=== PATIENT | female | born 1970 | race Caucasian/White ===

== ENCOUNTER 2024-10-19 15:32 | Inpatient (IN) | payer MEDICAID, SELFPAY ==
[2024-10-19 15:34] VITALS: BP 165/79; PULSE 121; RESP 26; TEMP 38.4; O2SAT 94
--- NOTE | 2024-10-19 15:40 | EKG12_ITS ---
Test Reason : GENERAL Blood Pressure : */* mmHG Vent. Rate : 107 BPM Atrial Rate : 107 BPM P-R Int : 140 ms QRS Dur : 80 ms QT Int : 330 ms P-R-T Axes : 41 41 39 degrees QTcB Int : 440 ms Sinus tachycardia Otherwise normal ECG Confirmed by Mika Bond ([id number]), editor greeting card LOPEZ NIEVES ([id number]) on 10/21/2024 1:10:17 PM Referred By: Confirmed By: Mika Bond
--- NOTE | 2024-10-19 15:40 | RAD_ITS ---
PROCEDURE: CHEST PA AND LATERAL 10/19/2024 REASON FOR EXAM: FEVER TECHNIQUE: CHEST PA AND LATERAL FINDINGS: Hardware: None Heart: Normal size Mediastinum: Right perihilar adenopathy/infiltrate Lungs: Right lower lobe airspace disease Bones: Negative RAD/Chest PA and Lateral IMPRESSION: Right base pneumonia [facility]
--- NOTE | 2024-10-19 15:47 | CT_ITS ---
PROCEDURE: ABDOMEN/PELVIS W IV CONT ONLY 10/19/2024 REASON FOR EXAM: ABD PAIN AND FEVER TECHNIQUE: ABDOMEN/PELVIS W IV CONT ONLY Coronal and Sagittal reconstruction series were provided. CONTRAST: Isovue 370 VOLUME: 98 mL One or more dose reduction techniques were used (e.g., Automated exposure control, adjustment of the mA and/or kV according to patient size, use of iterative reconstruction technique. RADIATION DOSE SUMMARY: CTDlvol: 21.5 mGy DLP: 1237 mGycm COMPARISON: None FINDINGS: Lung bases: There is patchy consolidation and ground-glass opacity in the right lower lobe. Liver: Numerous hypodense lesions throughout the liver, the majority of which are subcentimeter which limits evaluation. A lesion measuring 2.3 cm in the right hepatic lobe is simple fluid density, likely a simple cyst.. Gallbladder: Surgically absent. Spleen: Nodular structure posterior to the stomach measuring 3.6 cm is favored to represent the spleen. Pancreas: The distal pancreatic body and tail appear surgically absent, with a surgical clip near the margin. Pancreatic head is unremarkable. Adrenals: Unremarkable Kidneys: No hydronephrosis or stone. Subcentimeter hypodensities in both kidneys are too small to characterize. Bladder: Collapsed, limiting evaluation Reproductive Organs: Prior hysterectomy. Adnexal regions are unremarkable. Bowel: No obstruction or inflammation. Appendix not well-visualized and may be surgically absent. Lymph nodes: No significant lymphadenopathy. Vasculature: Unremarkable Bones: Degenerative changes of the spine. Soft tissues: Postoperative changes of the midline abdominal wall in keeping with history of prior hernia repairs. CT/Abdomen/Pelvis W IV Cont ONLY IMPRESSION: 1. Patchy consolidation and ground-glass opacity in the right lower lobe, like ly representing infection. Recommend repeat imaging in 8-12 weeks to ensure resolution. 2. No acute intra-abdominal abnormality. 3. 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 Correlate with surgical history. If patient had prior splenectomy, recommend fu rther imaging of the structure posterior to the stomach. 4. Numerous splenic hypodensities, majority of which are subcentimeter in size . Consider dedicated liver MRI or CT if patient has risk factors for hepatic malignancy. Reading Location: [facility]
--- NOTE | 2024-10-19 15:48 | EX.ED.DYSGE1 ---
HPI History of Present Illness Chief Complaint: Fever Informant: patient Onset/Context/Timing Onset: Days Context: Gradual Onset Timing: Continuous Current Severity: Moderate Maximum Severity: Moderate Narrative Narrative: 54-year-old female history of diabetes, prior history of sepsis with multiple prior abdominal surgeries including hysterectomy, , cholecystectomy hernia repairs. They state since Sunday evening she has had fever and chills. Nausea and vomiting. No diarrhea. No dysuria. States has chronic abdominal pain but she is having some on her right flank which is not normal. Had a similar episode when she felt like this when she was septic and said it was a infection in her bloodstream. Denies any rashes. No significant cough or shortness of breath. 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 Home Medications Medication Instructions Recorded Last Taken Type acetaminophen 500 mg capsule 1,000 mg PO Q4H PRN fever or pain 10/19/24 10/19/24 History bupropion HCl 150 mg 24 hr tablet, 150 mg PO DAILY 10/19/24 10/19/24 History extended release escitalopram oxalate 20 mg tablet 20 mg PO DAILY 10/19/24 10/18/24 History ferrous sulfate 325 mg (65 mg 325 mg PO BID 10/19/24 10/19/24 History iron) tablet,delayed release hydroxychloroquine 200 mg tablet 200 mg PO BID 10/19/24 10/19/24 History hydroxyzine HCl 25 mg tablet 25 mg PO BID PRN anxiety 10/19/24 10/19/24 History lisinopril 40 mg tablet 40 mg PO DAILY 10/19/24 10/18/24 History metformin 500 mg tablet 1,000 mg PO BID 10/19/24 10/19/24 History metoprolol succinate 50 mg 50 mg PO DAILY 10/19/24 10/19/24 History tablet,extended release 24 hr omeprazole 40 mg capsule,delayed 40 mg PO DAILY 10/19/24 10/19/24 History release rosuvastatin 5 mg tablet 5 mg PO QHS 10/19/24 10/18/24 History Allergy/AdvReac Type Severity Reaction Status Date / Time hydromorphone (From Dilaudid) Allergy Intermediate Rash Verified 10/19/24 15:36 Social History Smoking Status: Never smoker ROS ROS ED ROS Narrative Fever and chills. Nausea vomiting. Abdominal pain. Constitutional Constitutional ED: Denies chills or fever(s) Eyes Eyes: Denies blurry vision ENT ENT ED: Denies ear pain Cardiovascular Cardiovascular: Denies chest pain Respiratory/Chest Respiratory/Chest: Denies cough or dyspnea Gastrointestinal Gastrointestinal: Reports abdominal pain, nausea and vomiting Genitourinary Genitourinary ED: Denies dysuria or hematuria Musculoskeletal Musculoskeletal: Denies arthralgias or back pain Integumentary Denies abscess or Abrasions Neurologic Neurologic: Denies headache(s) Psychiatric Psychiatric: Denies anxiety or depression Endocrine Endocrinology: Denies cold intolerance Hematologic/Lymphatic Hematologic/Lymphatic: Reports none Allergic/Immunologic Allergic/Immunologic ED: Denies mouth swelling, tongue swelling or urticaria EXAM Physical Exam Narrative Exam Narrative: Middle-aged female sitting upright in bed. Vital signs are stable she is febrile 101.2. Tachycardic 121. Pulse ox 94% on room air no hypoxia. She is in no acute distress currently. H EENT exam pupils round react to light. Mytrex membranes. Neck nontender no JVD. No lymphadenopathy. No meningismus. Lungs clear to auscultation bilaterally. Heart tachycardic 120 no murmur. Chest wall ribs nontender. Abdomen soft nondistended normal bowel sounds without peritoneal signs. Mild tenderness right flank region. Not specific to the right upper quadrant or the right lower quadrant. Soft. No peritoneal signs. No obstruction. Back nontender. Moving all 4 extremities. Nontender. No edema. Normal strength. Normal range of motion. No hot or swollen joints. Skin no rashes. Neurologically she is awake and alert. Answering questions and following commands. Const Vital Signs: 10/19/24 15:34 10/19/24 15:56 10/19/24 15:56 Temperature 101.2 F H 101.2 F H Temperature Source Oral Oral Pulse Rate 121 H 111 H Respiratory Rate 26 H 26 H Respiratory Effort Respiratory Pattern Blood Pressure 165/79 H 165/79 H Blood Pressure Mean 107 107 Pulse Ox 94 94 Oxygen Delivery Method Room Air Room Air 10/19/24 15:57 10/19/24 16:46 Temperature 101.7 F H Temperature Source Oral Pulse Rate 101 H Respiratory Rate 18 Respiratory Effort Labored Respiratory Pattern Tachypnea Blood Pressure 133/88 H Blood Pressure Mean 103 Pulse Ox 92 Oxygen Delivery Method Room Air Positive well nourished and well developed; Negative for cachectic, contractures or unkempt General Appearance ED: well developed and NAD; Negative for unkempt, cachectic, contractures, cyanotic, diaphoretic or pallor Nutritional Appearance: Negative for cachectic HEENT Reports moist mucous membranes Eyes PERRL and EOMs intact bilaterally Neck no lymphadenopathy, supple and no JVD Chest Wall inspection of chest normal and palpation of chest normal Resp normal respiratory effort and clear to auscultation bilaterally Cardio regular rhythm, S1 normal heart sound, S2 normal heart sound and no murmurs; Negative for regular rate Rate: tachycardic GI normal to inspection, nondistended, normoactive bowel sounds, non-distended and no masses; Negative for non-tender Inspection: Negative for abdominal distention Auscultation: normoactive bowel sounds Palpation: soft and tender; Negative for guarding, splenomegaly, mass or rebound tenderness present Back/Spine no CVA tenderness General Back: Negative for CVA tenderness Cervical Spine: Negative for cervical spine tenderness Thoracic Spine / Upper Back: Negative for thoracic spinal tenderness Extremity normal to inspection General Extremety ED: Negative for edema or tenderness General Extremity: Negative for edema Neuro oriented x3 and CN's II-XII intact bilaterally Sensorium / Orientation: alert; Negative for orientation impaired, lethargic or stuporous Motor Exam: strength 5/5 throughout Psych mental status grossly normal Appearance: Negative for unkempt Mood & Affect: Negative for depressed, anxious or tearful Skin no rashes or lesions noted and no wounds General Skin Exam: Negative for jaundice or pallor Lesions: No lesion noted Rashes: No rashes noted Trauma: Negative for abrasion Wounds: Negative for wounds noted MDM MDM MDM Narrative Medical decision making narrative: 54-year-old female fever with nausea vomiting abdominal pain and diffuse body pain. She will be placed on the sepsis workup. Liter of normal saline. Tylenol for her fever. We are looking for a source of infection. Most likely will need to be admitted. Awaiting labs and x-ray results. History & Record Review Discussion w/independent historian: Patient Additional record(s) reviewed:: No prior records Lab Data Attestation: I reviewed the patient's lab results. Lab results narrative: CBC shows a white count 27,800. H&H 12.6 and 36. Platelets 430. Electrolytes show a sodium 132. Gap of 15. BUN of 12 creatinine 1.57. Glucose 171. Liver enzymes unremarkable. AST of 40. Alk phos 150. PT, PTT and INR are normal. Lactic acid 2.0 Urinalysis shows no acute abnormality. Chest x-ray shows a right lower lobe pneumonia. Labs: Laboratory Results - last 24 hr 10/19/24 10/19/24 15:46 16:18 WBC 27.8 H RBC 4.24 Hgb 12.6 Hct 36.9 L MCV 87.0 MCH 29.7 MCHC 34.1 RDW Std Deviation 43.6 RDW Coeff of [place] 13.8 Plt Count 430 MPV 10.0 Immature Gran % (Auto) 1.400 H Neut % (Auto) 84.7 H Lymph % (Auto) 6.3 L [place] % (Auto) 7.0 Eos % (Auto) 0.0 Baso % (Auto) 0.6 Absolute Neuts (auto) 23.6 H Absolute Lymphs (auto) 1.76 Nucleated RBC % 0.1 PT 14.1 INR 1.1 APTT 31.3 Sodium 132 L Potassium 5.1 Chloride 98 Carbon Dioxide 19.8 L Anion Gap 15 BUN 12 Creatinine 1.57 H Estim Creat Clear Calc 46.07 L Est GFR (MDRD) Non-Af 39 L BUN/Creatinine Ratio 7.7 L Glucose 171 H Lactic Acid 2.0 Calcium 9.3 Total Bilirubin 0.21 AST 40 H ALT 13 Alkaline Phosphatase 150 H Total Protein 7.3 Albumin 3.5 Globulin 3.8 Albumin/Globulin Ratio 0.9 Urine Color Yellow Urine Clarity Sl. Cloudy Urine pH 5.0 Ur Specific [place] 1.020 Urine Protein 100 H Urine Glucose (UA) Normal Urine Ketones Negative Urine Occult Blood 10 H Urine Nitrite Negative Urine Bilirubin Negative Urine Urobilinogen Normal Ur Leukocyte Esterase Negative Radiography Chest X-Ray - ED: 2 View, Read by ED Physician, Heart, Mediastinum, Bony Structures, Chronic Changes and Right Infiltrate Diagnostic Testing: Chest x-ray, 2 views, AP and lateral, interpreted by myself shows a right lower lobe pneumonia. Rhythm Strip Rhythm Strip: Sinus Tach Rate: 107 Ectopy: None EKG Initial EKG: Attestation: I personally reviewed and interpreted this EKG as follows: Interpretation: Sinus Rhythm and No Acute Injury Pattern Comments: Sinus tachycardia rate of 107 no acute signs of [place] or ischemia. Discharge Plan Dx/Rx/DC Orders Clinical Impression: Fever, Abdominal pain, Right lower lobe pneumonia, Leukocytosis Disposition Disposition: Acute Care Hospital [facility]
[2024-10-19] MEDS: 0.9% Normal Saline (1000mL) 1,000 ML 999 ML IV ×2 (15:49→17:28)
[2024-10-19 15:56] VITALS: BP 165/79; PULSE 111; RESP 26; TEMP 38.4; O2SAT 94; BMI 34.8
--- OUTSIDE RECORDS SUMMARY | 2024-10-19 16:03 | XMS RPT_ITS | CCD ---
Author Organization [facility] CliniSyil Care Team Providers Care Ticket Seller Name Role Phone Giselle Boykin E Primary Care Provider Maura Lange Unavailable Unavailable Boykin, Giselle Unavailable Unavailable Olivia Schmitz Unavailable Unavailable Fenohr, Emili Unavailable Unavailable Boykin, Giselle E Unavailable Unavailable Fenohr, Emili M Unavailable Unavailable Boykin, Giselle E Primary Care Provider Alejandro, Giselle E Unavailable [phone] Unavailable Unavailable Unavailable Primary Care Provider Unavailabl e Unavailable Unavailable Alejandro, Dr. Giselle Hendricks Attending U navailable Boykin, Dr. Giselle Hendricks Referring U navailable Boykin, Dr. Giselle Hendricks Primary Care U navailable Boykin, Dr. Giselle Hendricks Attending U navailable Boykin, Dr. Giselle Hendricks Referring U navailable Boykin, Dr. Giselle Hendricks Primary Care U navailable Boykin, Dr. Giselle Hendricks Attending U navailable Boykin, Dr. Giselle Hendricks Referring U navailable Boykin, Dr. Giselle Hendricks Primary Care U navailable Dr. Maura Lange Attending Unavailable Boykin, Dr. Giselle Hendricks Referring U navailable Boykin, Dr. Giselle Hendricks Primary Care U navailable Boykin, Dr. Giselle Hendricks Referring U navailable Boykin, Dr. Giselle Hendricks Primary Care U navailable Boykin, Dr. Giselle Hendricks Attending U navailable Boykin, Dr. Giselle Hendricks Attending U navailable Boykin, Dr. Giselle Hendricks Referring U navailable Boykin, Dr. Giselle Hendricks Primary Care U navailable Boykin, Dr. Giselle Hendricks Referring U navailable Boykin, Dr. Giselle Hendricks Primary Care U navailable JESSICA, MIGUELINA UNDERWOOD Attending Unavailable Boykin, Dr. Giselle Hendricks Referring U navailable Boykin, Dr. Giselle Hendricks Primary Care U navailable Nazario, Dr. Lorenzo Attending Unavailable Giselle Boykin MD Primary Care Provider Giselle Boykin MD Unavailable Giselle Boykin MD Primary Care Provider Unav ailable Giselle Boykin MD Unavailable Unavailabl e Giselle Boykin MD Unavailable Giselle Boykin MD Primary Care Provider Maura Lange MD Unavailable GISELLE BOYKIN MD Primary Care Physician HARSH CEDILLO Attending Unavailable GISELLE BOYKIN MD Primary Care Unavailable TOMAS GOLDEN MD Attending Unavailable GISELLE BOYKIN MD Primary Care Unavailable VICKY HERNANDEZ MD Attending U navailable ROBLES PATRICK, JACKIE Consulting Unavailable GISELLE BOYKIN MD Primary Care Unavailable MAXINE BLAIR MD Admitting Unavailable Mo Johnson Attending Unavailable Giselle Boykin MD Unavailable Giselle Boykin MD Primary Care Provider STEPHANIE WILDER Attending Unavailable SELF Referring Unavailable GISELLE BOYKIN Primary Care Unavailable STEPHANIE WILDER Referring Unavailable GISELLE BOYKIN Primary Care Unavailable MAURA LANGE MD Attending Unavailable GISELLE BOYKIN MD Primary Care Unavailable Giselle Boykin MD Unavailable Maura Lange MD Unavailable BOYKIN, GISELLE E Attending Unavailable BOYKIN, GISELLE E Primary Care Unavailable MAURA LANGE Attending Unavailable BOYKIN, GISELLE E Primary Care Unavailable YASMINE LOPEZ Attending Unavailable BOYKIN, GISELLE E Primary Care Unavailable BOYKIN, GISELLE E Attending Unavailable BOYKIN, GSIELLE E Primary Care Unavailable MAURA LANGE Attending Unavailable BOYKIN, GISELLE E Primary Care Unavailable BOYKIN, GISELLE E Attending Unavailable BOYKIN, GISELLE E Attending Unavailable BOYKIN, GISELLE E Primary Care Unavailable BOYKIN, GISELLE E Primary Care Unavailable BOYKIN, GISELLE E Referring Unavailable BOYKIN, GISELLE E Primary Care Unavailable Allergies Allergy Classification Reported Allergen(s) Allergy Type Date of Onset Reaction(s) Facility Bacitracin (7 sources) Bacitracin; Translations: [bacitracin] Drug Allergy Other [place] [address] Work Phone: Opioid Agonists (8 sources) HYDROmorphone; Translations: [Dilaudid TABS] Drug Allergy Vomiting, Hives [facility] Sulfamethoxazole / Trimethoprim (7 sources) Sulfamethoxazole / Trimethoprim; Translations: [Bactrim] Drug Allergy Other [place] [address] Work Phone: Unclassified (2 sources) Artificial sweetners Food allergy Migraine (disorder) [facility] (10 sources) HYDROmorphone; Translations: [HYDROMORPHONE HCL] Drug Allergy 10-21-19 16 Nausea And Vomiting, Rash, Vomiting [place], [place] (20 sources) Sulfamethoxazole / Trimethoprim; Translations: [Bactrim] Drug Allergy 05-20-19 17 Other (See Comments), Other: See Comments, Other [place], [place] (20 sources) Bacitracin; Translations: [bacitracin] Drug Allergy 12-08-19 23 Other, Other: See Comments [facility] (20 sources) HYDROmorphone; Translations: [Dilaudid TABS] Drug Allergy 12-08-19 23 [facility], H[facility], [facility] Work Phone: (5 sources) Sulfamethoxazole / Trimethoprim Drug Allergy Other [facility] DO Work Phone: (16 sources) Morphinan opioid; Translations: [OPIOIDS - MORPHINE ANALOGUES] Propensity to adverse reactions 03-30-20 04 Rash, Vomiting, Nausea And Vomiting, Nausea/vomitin g [facility] (14 sources) liraglutide; Translations: [LIRAGLUTIDE] Drug Allergy 03-20-20 23 [facility] Work Phone: (2 sources) HYDROmorphone; Translations: [HYDROMORPHONE] Drug Allergy 12-08-19 [facility] 3 Repository Medications Current Medications Medication Drug Class(es) Dates Sig (Normalized) Sig (Original) acetaminophen 325 mg oral tablet (3 sources) Start: 12-03-2019 acetaminophen (TYLENOL) tablet 650 mg Start: 12-03-2019 End: 12-03-2019 acetaminophen (TYLENOL) tabl et 1,000 mg Start: 12-24-2018 End: 12-24-2018 acetaminophen (TYLENOL) tabl et 1,000 mg acetaminophen 325 mg / HYDROcodone bitartrate 7.5 mg oral tablet (1 source) Opioid Agonist Start: 12-24-2018 End: 12-30-2018 take 1 tablet by mouth every six hours as needed for pain HYDROcodone-acetaminophen (NORCO) 7.5-325 MG per tablet Indications: Recurrent incisional hernia Take 1 tablet by mouth every 6 hours as needed for Pain for up to 6 days. 24 tablet 0 12/24/2018 12/30/2018 Active acetaminophen 325 mg / oxyCODONE hydrochloride 5 mg oral tablet (3 sources) Opioid Agonist Start: 11-14-2023 End: 11-16-2023 take 1 tablet by mouth every four hours as needed for pain Percocet 5 mg-325 mg oral tablet Dose = 1 tab(s), Oral, q4h, PRN for pain, X 2 day(s), # 12 tab(s), 0 Refill(s), Abdominal pain, 89.4 Start Date: 11/14/23 Stop Date: 11/16/23 Status: Ordered Start: 12-04-2019 End: 12-11-2019 take 1 tablet by mouth every six hours as needed for pain oxyCODONE-acetaminophen (PERCOCET) 5-325 MG per tablet Indications: Abnormal uterine bleeding Take 1 tablet by mouth every 6 hours as needed for Pain for up to 7 days. 28 tablet 0 12/04/2019 12/11/2019 Active Start: 12-03-2019 oxyCODONE-acet aminophen (PERCOCET) 5-325 MG per tablet 1 tablet [id number] 200 actuat albuterol 0.09 mg/actuat metered dose inhaler (20 sources) beta2-Adrenergic Agonist Start: 04-29-2024 take 2 puff(s) by inhalation every four hours for wheezing albuterol 90 mcg/actuation inhaler Inhale 2 puffs every 4 hours if needed for shortness of breath or wheezing. 04/29/2024 Active Start: 07-20-2016 End: 05-03-2023 take 2 puff(s) by inhalation every four hours albuterol (Ventolin HFA) 90 mcg/actuation inhaler Inhale 2 puffs every 4 hours if needed. 0 07/20/2016 05/03/2023 Discontinued (Med List Cleanup) Start: 07-20-2016 take 2 puff(s) by in halation every four to six hours as needed Ventolin HFA 108 (90 Base) MCG/ACT Inhalation Aerosol Solution INHALE 2 PUFFS EVERY 4-6 HOURS NEEDED. Quantity: 1 Refills: 2 Ordered: 11-Feb-2018 Giselle Boykin MD Start : 20-Jul-2016 Active Start: 07-20-2016 take 2 puff(s) by in halation every four to six hours as needed Ventolin HFA 108 (90 Base) MCG/ACT Inhalation Aerosol Solution INHALE 2 PUFFS EVERY 4-6 HOURS NEEDED. Quantity: 1 Refills: 2 Giselle Boykin MD Start : 20-Jul-2016 Active 18 GM Inhaler ALPRAZolam 0.25 mg disintegrating oral tablet (4 sources) Benzodiazepine Start: 12-24-2018 ALPRAZolam (NI RAVAM) dissolvable tablet 0.25 mg take 1 tablet by kayley th every eight hours as needed ALPRAZolam (XANAX) 0.5 mg tablet Take 0. 5 mg by mouth three times daily as needed. Active Comment on above: Take 0.5 mg by mouth three times daily as needed. amoxicillin 875 mg / clavulanate 125 mg oral tablet (4 sources) Penicillin-class Antibacterial Start: 4 End: 4 take 1 tablet by mouth twice daily amoxicillin-pot clavulanate (Augmentin) 875-125 mg tablet Indications: Acute otitis media, unspecified otitis media type Take 1 tablet by mouth 2 times a day for 10 days. 20 tablet 11/27/2023 12/07/2023 Active Start: 04-18-2023 End: 04-29-2023 take 1 tablet by mouth twice daily amoxicillin-pot clavulanate (Augmentin) 875-125 mg tablet Indications: Dental infection Take 1 tablet (875 mg) by mouth 2 times a day for 7 days. 14 tablet 0 04/18/2023 04/29/2023 Discontinued (Therapy completed) Start: 08-30-2022 take 1 tablet by kayley twice daily Amoxicillin-Pot Clavulanate 875-125 MG Oral Tablet Take 1 tablet twice daily Quantity: 20 Refills: 0 Ordered: 30-Aug-2022 Jessica LONGORIA-Yasmine MCINTYRE Start : 30-Aug-2022 Active ascorbic acid 500 mg oral tablet (6 sources) Vitamin C take 1 tablet by mouth twice daily vitamin C (ASCORBIC ACID) 500 MG tablet Take 500 mg by mouth 2 times daily 0 Active benzonatate 100 mg oral capsule (3 sources) Non-narcotic Antitussive Start: 5 take 1 capsule by mouth three times daily as needed benzonatate (TESSALON PERLE) 100 mg capsule Indications: Bronchitis Take 1 capsule by mouth three times a day as needed. 30 capsule 04/29/2024 Active Start: 01-02-2022 End: 04-29-2024 take 2 capsules by mouth every eight hours as needed benzonatate (TESSALON PERLES) 100 mg capsule Take 2 capsules by mouth every 8 hours as needed. 60 capsule 01/02/2022 04/29/2024 Discontinued 24 hr buPROPion hydrochloride 150 mg extended release oral tablet (7 sources) Aminoketone Start: 07-08-2024 End: 07-08-2025 take 1 tablet by mouth once daily in the morning buPROPion XL (Wellbutrin XL) 150 mg 24 hr tablet Indications: Situational depression Take 1 tablet (150 mg) by mouth once daily in the morning. Do not crush, chew, or split. 30 tablet 11 07/08/2024 07/08/2025 Active Start: 03-20-2024 End: 06-18-2024 take 1 tablet by mouth once daily in the morning buPROPion XL (Wellbutrin XL) 150 mg 24 hr tablet Indications: Situational depression Take 1 tablet (150 mg) by mouth once daily in the morning. Do not crush, chew, or split. 30 tablet 2 03/20/2024 06/18/2024 Active busPIRone hydrochloride 10 m g oral tablet (20 sources) Start: 11-15-2020 End: 05-03-2023 busPIRone (Buspar) 10 mg tab let Take by mouth twice a day. 0 11/15/2020 05/03/2023 Discontinued (Med List Cleanup) calcium chloride 0.0014 meq/ ml / potassium chloride 0.004 meq/ml / sodium chloride 0.103 meq/ml / sodium lactate 0.028 meq/ml injectable solution (2 sources) Start: 12-03-2019 lactated ringe rs infusion Start: 12-24-2018 lactated ringe rs infusion cetirizine hydrochloride 10 mg oral tablet (2 sources) Histamine-1 Receptor Antagonist Start: 04-29-2024 End: 05-29-2024 take 1 tablet by mouth once daily cetirizine (ZYRTEC) 10 mg tablet Indications: Bacterial sinusitis Take 1 tablet by mouth once daily. 30 tablet 04/29/2024 05/29/2024 Active diclofenac sodium 75 mg delayed release oral tablet (3 sources) Nonsteroidal Anti-inflammatory Drug take 1 tablet by mouth twice daily diclofenac, EC, (VOLTAREN) 75 mg EC tablet Take 75 mg by mouth twice daily. Active Comment on above: Take 75 mg by mouth twice daily. 1 ml diphenhydrAMINE hydrochloride 50 mg/ml cartridge (1 source) Histamine-1 Receptor Antagonist Start: 12-24-2018 End: 12-24-2018 diphenhydrAMINE (BENADRYL) injection 12.5 mg doxycycline hyclate 100 mg oral tablet (3 sources) Tetracycline-class Drug Start: 04-29-2024 End: 05-09-2024 take 1 tablet by mouth twice daily doxycycline (VIBRA-TABS) 100 mg tablet Indications: Bacterial sinusitis , Bronchitis Take 1 tablet by mouth two times a day for 10 days. 20 tablet 04/29/2024 05/09/2024 Active Start: 12-24-2018 take 1 tablet by kayley th twice daily doxycycline hyclate (VIBRA-TABS) 100 MG tablet Take 1 tablet by mouth 2 times daily 14 tablet 1 12/24/2018 Active escitalopram 20 mg oral tablet (20 sources) Serotonin Reuptake Inhibitor Start: 04-23-2017 End: 04-08-2025 take 1 tablet by mouth once daily escitalopram (Lexapro) 20 mg tablet Indications: Situational depression Take 1 tablet (20 mg) by mouth once daily. 90 tablet 3 04/08/2024 04/08/2025 Active Start: 04-23-2017 take 8 tablets by mo [facility] once daily Escitalopram Oxalate 20 MG Oral Tablet Once daily Quantity: 90 Refills: 3 Ordered: 07-Nov-2021 Giselle Boykin MD Start : 23-Apr-2017 Active Start: 04-23-2017 take 7 tablets by mo [facility] once daily Escitalopram Oxalate 20 MG Oral Tablet Once daily Quantity: 90 Refills: 3 Ordered: 07-Aug-2019 Giselle Boykin MD Start : 23-Apr-2017 Active Comment on above: Take 20 mg by mouth once daily. FeroSul 325 mg (65 mg elemental iron) oral tablet (2 sources) Start: 09-30-2023 FeroSul 325 mg (65 mg elemental iron) oral tablet Dose : 325 mg = 1 tab(s), Oral, BID, 0 Refill(s) Start Date: 09/30/23 Status: Ordered ferrous sulfate 325 mg oral tablet (20 sources) Start: 05-30-2024 End: 05-30-2025 take 1 tablet by mouth twice daily ferrous sulfate tablet Indications: Anemia, unspecified type Take 1 tablet (325 mg) by mouth 2 times daily (morning and late afternoon). 180 tablet 3 05/30/2024 05/30/2025 Active Start: 03-16-2024 take 1 tablet by kayley twice daily at mealtime FEROSUL 325 mg (65 mg iron) tablet Take 1 tablet by mouth two times a day with meals. 03/16/2024 Active Start: 03-20-2023 End: 03-20-2024 take 1 tablet by mouth twice daily at mealtime ferrous sulfate, 325 mg ferrous sulfate, tablet Indications: Anemia, unspecified type Take 1 tablet by mouth 2 times a day with meals. 180 tablet 3 03/20/2023 03/20/2024 Active fluticasone propionate 0.05 mg/actuat metered dose nasal spray (2 sources) Corticosteroid Start: 04-29-2024 take 1 spray(s) nasal route twice daily fluticasone (FLONASE ALLERGY RELIEF) 50 mcg/actuation nasal spray Indications: Bacterial sinusitis Use 1 [place] in each nostril two times a day. 1 Each 04/29/2024 Active 1 ml hydrALAZINE hydrochloride 20 mg/ml injection (1 source) Arteriolar Vasodilator Start: 12-24-2018 hydrALAZINE (APRESOLINE) injection 5 mg hydroCHLOROthiazide 25 mg oral tablet (5 sources) Thiazide Diuretic Start: 03-20-2024 End: 03-20-2025 take 1 tablet by mouth once daily hydroCHLOROthiazide (HYDRODiuril) 25 mg tablet Indications: Benign essential hypertension Take 1 tablet (25 mg) by mouth once daily. 90 tablet 3 03/20/2024 05/07/2024 Discontinued (Med List Cleanup) hydroxychloroquine sulfate 200 mg oral tablet (20 sources) Antimalarial, Antirheumatic Agent Start: 07-08-2024 End: 07-08-2025 take 1 tablet by mouth twice daily hydroxychloroquine (Plaquenil) 200 mg tablet Indications: Systemic lupus erythematosus, unspecified SLE type, unspecified organ involvement status (Multi) Take 1 tablet (200 mg) by mouth 2 times a day. 180 tablet 3 07/08/2024 07/08/2025 Active Start: 09-16-2012 End: 05-31-2024 take 1 tablet by mouth twice daily hydroxychloroquine (Plaquenil) 200 mg tablet Indications: Systemic lupus erythematosus, unspecified SLE type, unspecified organ involvement status (Multi) Take 1 tablet (200 mg) by mouth 2 times a day. 180 tablet 3 06/01/2023 05/31/2024 Active take 1 tablet by kayley th once daily hydroxychloroquine (PLAQUENIL) 200 MG tablet Take 200 mg by mouth daily 0 Active Comment on above: Take 200 mg by mouth twice daily. hydrOXYzine hydrochloride 25 mg oral tablet (20 sources) Antihistamine Start: 07-09-19 take 1 tablet by mouth twice daily as needed for anxiety hydrOXYzine HCL (Atarax) 25 mg tablet Indications: Situational anxiety Take 1 tablet (25 mg) by mouth 2 times a day as needed for anxiety. 30 tablet 3 07/08/2024 Active Start: 08-19-2018 take 1 tablet by kayley th twice daily as needed for anxiety hydrOXYzine HCL (Atarax) 25 mg tablet Indications: Situational anxiety Take 1 tablet by mouth twice daily as needed for anxiety 30 tablet 3 09/15/2023 Active Comment on above: Take 25 mg by mouth twice daily as needed. Iron (6 sources) take 325 mg by mouth twice daily IRON PO Take 325 mg by mouth 2 times daily 0 Suspended take 325 mg by mouth twice daily IRON PO Take 325 mg by mouth 2 times daily 0 Active 4 ml labetalol hydrochloride 5 mg/ml cartridge (1 source) beta-Adrenergic Maikel Start: 12-24-2018 labetalol (NORMODYNE;TRANDATE) injection 5 mg lancing device (TRUEdraw Lancing Device) misc (5 sources) Start: 12-05-2023 lancing device (TRUEdraw Lancing Device) misc Indications: Type 2 diabetes mellitus with hyperglycemia, without long-term current use of insulin Use to check fasting glucose once daily. 100 each 3 12/05/2023 Active levonorgestrel 0.027913 mg/hr intrauterine system (1 source) Progestin, Progestin-containin g Intrauterine Device Start: 01-17-2019 Levonorgestrel (KYLEENA) IUD 19.5 mg 1 each 10 ml lidocaine hydrochloride 10 mg/ml injection (1 source) Antiarrhythmic, Amide Local Anesthetic Start: 12-24-2018 End: 12-24-2018 lidocaine PF 1 % injection 1 mL lisinopril 40 mg oral tablet (20 sources) Angiotensin Converting Enzyme Inhibitor Start: 08-29-2023 End: 08-28-2024 take 1 tablet by mouth once daily lisinopril 40 mg tablet Indications: Benign essential hypertension Take 1 tablet (40 mg) by mouth once daily. 90 tablet 3 08/29/2023 08/28/2024 Active Start: 10-21-2014 take 1 tablet by kayley th once daily lisinopril 20 mg tablet Take 1 tablet (20 mg) by mouth once daily. 0 10/21/2014 Active Start: 10-21-2014 take 2 tablets by [facility] once daily Lisinopril 20 MG Oral Tablet TAKE 2 TABLETS BY MOUTH ONCE DAILY Quantity: 180 Refills: 3 Ordered: 10-Oct-2022 Giselle Boykin MD Start : 21-Oct-2014 Active lisinopril (PRIN IVIL;ZESTRIL) 2.5 MG tablet Take 20 mg by mouth every morning 0 Active Comment on above: Take 20 mg by mouth once daily. 1 ml meperidine hydrochloride 50 mg/ml injection (1 source) Opioid Agonist Start: 9 meperidine (DEMEROL) injection 12.5 mg metFORMIN hydrochloride 500 mg oral tablet (20 sources) Biguanide Start: 4 End: 5 take 2 tablets by mouth twice daily metFORMIN (Glucophage) 500 mg tablet Indications: Type 2 diabetes mellitus with hyperglycemia, without long-term current use of insulin Take 2 tablets (1,000 mg) by mouth 2 times daily (morning and late afternoon). 360 tablet 3 01/28/2024 01/27/2025 Active Start: 12-14-2015 End: 05-21-2024 take 1 tablet by mouth twice daily metFORMIN (GLUCOPHAGE) 500 mg tablet Take 500 mg by mouth twice daily. 10/27/2021 Active Comment on above: Take 500 mg by mouth twice daily. morphine (PF) injection 2 mg (1 source) Start: 0 morphine (PF) injection 2 mg omeprazole 40 mg delayed release oral capsule (20 sources) Proton Pump Inhibitor Start: 5 End: 6 take 1 capsule by mouth once daily omeprazole (PriLOSEC) [address] capsule Indications: Gastroesophageal reflux disease without esophagitis Take 1 capsule (40 mg) by mouth once daily. 90 capsule 3 05/30/2024 05/30/2025 Active Start: 07-16-2017 End: 05-02-2024 take 1 capsule by mouth once daily omeprazole (PriLOSEC) [address] capsule Indications: Gastroesophageal reflux disease without esophagitis Take 1 capsule (40 mg) by mouth once daily. 30 capsule 11 05/03/2023 Active take 40 mg by mouth once daily OMEPRAZOLE PO Take 40 mg by mouth nightly 0 Active Comment on above: Take 40 mg by mouth once daily. ondansetron 4 mg oral tablet (20 sources) Serotonin-3 Receptor Antagonist Start: End: take 1 tablet by mouth every eight hours for nausea ondansetron (Zofran) 4 mg tablet Indications: Nausea and vomiting, unspecified vomiting type Take 1 tablet (4 mg) by mouth every 8 hours if needed for nausea or vomiting for up to 7 days. 30 tablet 5 05/07/2024 05/14/2024 Active Start: 05-08-2022 take 1 tablet by kayley th every six hours as needed for nausea Ondansetron HCl - 4 MG Oral Tablet TAKE 1 TABLET EVERY 6 HOURS NEEDED FOR NAUSEA Quantity: 30 Refills: 1 Ordered: 08-May-2022 Giselle Boykin MD Start : 08-May-2022 Active Start: 08-31-2021 Ondansetron HC l - 4 MG/2ML Injection Solution IM INJECTION Quantity: 0 Refills: 0 Ordered: 31-Aug-2021 Olivia Schmitz MD Start : 31-Aug-2021 Complete Start: 12-24-2018 End: 12-24-2018 ondansetron (ZOFRAN) injecti on 4 mg Start: 11-09-2015 End: 11-26-2019 take 1 tablet by mouth every four hours as needed ondansetron orally disintegrating (ZOFRAN ODT) 4 mg disintegrating tablet Take 1 tablet by mouth every 4 hours as needed for Nausea/Vomiting. 8 tablet 0 11/09/2015 Active take 1 tablet by kayley th every eight hours Ondansetron HCl - 4 MG Oral Tablet TAKE 1 TABLET Every 8 hours PRN post surgery nausea Quantity: 0 Refills: 0 Ordered: 08-Jan-2019 DO Active Comment on above: Take 1 tablet by kayley th every 4 hours as needed for Nausea/Vomiting. pantoprazole 40 mg delayed release oral tablet (1 source) Proton Pump Inhibitor Start: 12-03-2019 pantoprazole (PROTONIX) tablet 40 mg predniSONE 10 mg oral tablet (2 sources) Start: 10-29-2020 End: 11-10-2020 predniSONE 10 MG Oral Tablet 4 tabs for three days, 3 tabs for three days, 2 tabs for three days, 1 tab for three days, 1/2 tab for three days then stop. Quantity: 32 Refills: 0 Ordered: 29-Oct-2020 Maura Lange MD Start : 29-Oct-2020 End : 10-Nov-2020 Active promethazine hydrochloride 25 mg oral tablet (5 sources) Phenothiazine Start: 01-02-2022 promethazine 25 mg oral tablet Dose : 25 mg = 1 tab(s), Oral, q4h, PRN as needed for nausea/vomiting, # 15 tab(s), 0 Refill(s) Start Date: 11/14/23 Status: Ordered Start: 12-03-2019 promethazine ( PHENERGAN) tablet 12.5 mg Start: 12-24-2018 End: 12-24-2018 promethazine (PHENERGAN) inj ection 6.25 mg rosuvastatin calcium 5 mg oral tablet (20 sources) HMG-CoA Reductase Inhibitor Start: 04-08-2024 End: 04-08-2025 take 1 tablet by mouth once daily at bedtime rosuvastatin (Crestor) 5 mg tablet Indications: Mixed hyperlipidemia Take 1 tablet (5 mg) by mouth once daily at bedtime. 90 tablet 3 04/08/2024 04/08/2025 Active Start: 12-03-2019 take 5 mg by mouth once daily 5 mg, Oral, DAILY, First dose on Sun12/03/19 at 1545 Start: 09-04-2019 End: 03-11-2024 take 1 tablet by mouth once daily at bedtime rosuvastatin (CRESTOR) 5 mg tablet Take 5 mg by mouth daily at bedtime. 09/15/2021 Active Comment on above: Take 5 mg by mouth d aily at bedtime. 3 ml sodium chloride 9 mg/ml injection (6 sources) Start: 12-03-2019 sodium chloride flush 0.9 % injection 10 mL Start: 12-03-2019 0.9 % sodium c hloride infusion Start: 12-24-2018 sodium chlorid e flush 0.9 % injection 10 mL vitamin b12 1 mg oral tablet (20 sources) Vitamin B12 End: 05-03-2023 cyanocobalamin (Vitamin B-12 ) 1,000 mcg tablet Take by mouth. 0 05/03/2023 Discontinued (Med List Cleanup) Vitamin B-12 100 0 MCG Oral Tablet Quantity: 0 Refills: 0 Ordered: 14-Nov-2017 DO Active take 2000 ug by mout h once daily in the morning Cyanocobalamin (VITAMIN B 12 PO) Take 2, 000 mcg by mouth every morning 0 Active take 1000 ug by mout h once daily in the morning Cyanocobalamin (VITAMIN B 12 PO) Take 1, 000 mcg by mouth every morning 0 Suspended take 1000 ug by mout h once daily in the morning Cyanocobalamin (VITAMIN B 12 PO) Take 1, 000 mcg by mouth every morning 0 Active take 1000 ug by mouth once daily Cyanocobalamin (VITAMIN B 12 PO) Take 1,000 mcg by mouth daily 0 Active zonisamide 100 mg oral capsule (20 sources) Anti-epileptic Agent Start: 12-03-2019 take 300 mg by mouth once daily 300 mg, Oral, NIGHTLY, First dose on Sun12/03/19 at 2100 Start: 11-18-2018 End: 08-30-2022 take 3 capsules by mouth once daily at bedtime zonisamide (ZONEGRAN) 100 mg capsule Take 300 mg by mouth daily at bedtime. 12/24/2021 Active Start: 11-18-2018 End: 01-31-2023 zonisamide (Zonegran) 100 mg capsule Take by mouth. 0 11/18/2018 01/31/2023 Discontinued (Therapy completed) Start: 11-18-2018 take 1 capsule by mo uth once at bedtime, then take 2 capsules by mouth once, then take 3 capsules by mouth once daily at bedtime Zonisamide 100 MG Oral Capsule 1 po q hs x 1week then 2 po qhsx 1 week then 3 po qhs Quantity: 90 Refills: 6 Olivia Schmitz MD Start : 18-Nov-2018 Active Comment on above: Take 300 mg by mouth daily at bedtime. Completed/Discontinued Medications Medication Drug Class(es) Dates Sig (Normalized) Sig (Original) Accu-Chek Caitlyn Plus w/Device Kit (1 source) Start: 02-05-2020 Accu-Chek Caitlyn Plus w/Device Kit CHECK FASTING GLUCOSE ONCE DAILY, RECORD IN LOG BOOK. Quantity: 1 Refills: 0 Giselle Boykin MD Start : 05-Feb-2020 Active acyclovir 0.05 mg/mg topical ointment (1 source) Herpesvirus Nucleoside Analog DNA Polymerase Inhibitor, Herpes Simplex Virus Nucleoside Analog DNA Polymerase Inhibitor, Herpes Zoster Virus Nucleoside Analog DNA Polymerase Inhibitor Start: 08-07-2019 Acyclovir 5 % External Ointment APPLY TO AFFECTED AREA UP TO 4 TIMES DAILY. Quantity: 1 Refills: 2 Giselle Boykin MD Start : 07-Aug-2019 Active 30 GM Tube aprepitant 40 mg oral capsule (1 source) Substance P/Neurokinin-1 Receptor Antagonist Start: 12-24-2018 End: 12-24-2018 aprepitant (EMEND) capsule 40 mg Start: 12-24-2018 End: 12-24-2018 aprepitant (EMEND) capsule 4 0 mg bupivacaine and dexamethasone (TAP) syringe 30 mL (1 source) Start: 12-24-2018 End: 12-24-2018 bupivacaine and dexamethasone (TAP) syringe 30 mL ceFAZolin 2000 mg injection (1 source) Cephalosporin Antibacterial Start: 12-24-2018 End: 12-24-2018 ceFAZolin (ANCEF) 2 g in dextrose 4 % 100 mL IVPB (premix) ceFAZolin (ANCEF) 2 g in dextrose 5 % 100 mL IVPB (1 source) Start: 12-03-2019 End: 12-03-2019 ceFAZolin (ANCEF) 2 g in dextrose 5 % 100 mL IVPB cholecalciferol 0.05 mg oral capsule (16 sources) Vitamin D Start: 04-07-2022 take 1 capsule by mouth once daily Vitamin D 50 MCG (2000 UT) Oral Capsule TAKE 1 CAPSULE Daily Quantity: 90 Refills: 3 Ordered: 07-Apr-2022 Giselle Boykin MD Start : 07-Apr-2022 Active clobetasol propionate 0.5 mg/ml topical cream (7 sources) Corticosteroid Start: 10-10-2022 Clobetasol Propionate 0.05 % External Cream APPLY SPARINGLY TO AFFECTED AREA(S) TWICE DAILY Quantity: 1 Refills: 0 Ordered: 10-Oct-2022 Giselle Boykin MD Start : 10-Oct-2022 Active dextromethorphan hydrobromide 3 mg/ml / promethazine hydrochloride 1.25 mg/ml oral solution (2 sources) Phenothiazine, Uncompetitive O-rvygvb-B-aspartat e Receptor Antagonist, Sigma-1 Agonist Start: 08-30-2022 take 5 mL by mouth every four to six hours as needed for cough Promethazine-DM 6.25-15 MG/5ML Oral Syrup TAKE 5 ML EVERY 4 TO 6 HOURS NEEDED FOR COUGH. Quantity: 1 Refills: 0 Ordered: 30-Aug-2022 Jenna Mitchellita Start : 30-Aug-2022 Active dimenhyDRINATE 50 mg oral tablet (1 source) Start: 12-03-2019 End: 12-03-2019 dimenhyDRINATE (DRAMAMINE) tablet 100 mg Start: 12-03-2019 End: 12-03-2019 dimenhyDRINATE (DRAMAMINE) t ablet 100 mg ergocalciferol 1.25 mg oral capsule (16 sources) Provitamin D2 Compound Start: 08-26-2020 End: 08-31-2021 take 1 capsule by mouth every week Vitamin D (Ergocalciferol) 1.25 MG (59413 UT) Oral Capsule TAKE 1 CAPSULE WEEKLY. Quantity: 4 Refills: 2 Ordered: 26-Aug-2020 Giselle Boykin MD Start : 26-Aug-2020 End : 31-Aug-2021 Complete famotidine 20 mg oral tablet (2 sources) Histamine-2 Receptor Antagonist Start: 12-03-2019 End: 12-03-2019 famotidine (PEPCID) tablet 20 mg Start: 12-24-2018 End: 12-24-2018 famotidine (PEPCID) tablet 2 0 mg gabapentin 300 mg oral capsule (2 sources) Anti-epileptic Agent Start: 12-03-2019 End: 12-03-2019 gabapentin (NEURONTIN) capsule 300 mg Start: 12-24-2018 End: 12-24-2018 gabapentin (NEURONTIN) capsu le 300 mg 12 hr guaiFENesin 600 mg extended release oral tablet (2 sources) Start: 12-31-2021 End: 04-29-2024 take 1 tablet by mouth twice daily as needed guaiFENesin (MUCINEX) 600 mg 12 hr tablet Indications: Viral URI with cough Take 1 tablet by mouth twice daily as needed. 30 tablet 12/31/2021 04/29/2024 Discontinued Comment on above: Take 1 tablet by kayley twice daily as needed. Iopamidol (1 source) Radiographic Contrast Agent Start: 11-14-2018 End: 11-14-2018 iopamidol (ISOVUE-370) 76 % injection 75 mL 2 ml ketorolac tromethamine 30 mg/ml cartridge (4 sources) Nonsteroidal Anti-inflammatory Drug, Cyclooxygenase Inhibitor Start: 08-31-2021 Ketorolac Tromethamine 60 MG/2ML Intramuscular Solution INJECT 60 ML Intramuscular 30ml per 1 ml in bilateral gluteous muscles Quantity: 0 Refills: 0 Ordered: 31-Aug-2021 Olivia Schmitz MD Start : 31-Aug-2021 Complete Start: 11-15-2020 End: 11-15-2020 take 1 tablet by mouth every six hours at mealtime Ketorolac Tromethamine 10 MG Oral Tablet TAKE 1 TABLET Every 6 hours with food Quantity: 20 Refills: 0 Ordered: 15-Nov-2020 Olivia Schmitz MD Start : 15-Nov-2020 End : 15-Nov-2020 Complete Start: 11-15-2020 Ketorolac Trom ethamine 60 MG/2ML Intramuscular Solution INJECT 60 ML Intramuscular 30ml per 1 ml in bilateral gluteous muscles Quantity: 0 Refills: 0 Ordered: 15-Nov-2020 Olivia Schmitz MD Start : 15-Nov-2020 Complete Start: 12-03-2019 End: 12-05-2019 ketorolac (TORADOL) injectio n 30 mg 3 ml liraglutide 6 mg/ml pen injector (7 sources) GLP-1 Receptor Agonist Start: 10-27-2022 inject 0.6 mg by subcutaneous injection once daily, then inject 1.2 mg by subcutaneous injection once daily Victoza 18 MG/3ML Subcutaneous Solution Pen-injector 0.6 mg subcu daily for 1 week, then 1.2 mg daily. Quantity: 1 Refills: 11 Ordered: 27-Oct-2022 Giselle Boykin MD Start : 27-Oct-2022 Active 24 hr metoprolol succinate 50 mg extended release oral tablet (20 sources) beta-Adrenergic Maikel Start: 09-30-2023 End: 10-02-2023 metoprolol succinate 50 mg oral TABLET extended release Start: 10/02/23 8:00:00 AM EDT, Dose = 50 mg, = 1 tab(s), Oral, 0, 09/30/23 21:44:00 EDT Start Date: 10/02/23 Stop Date: 10/02/23 Status: Completed Start: 09-30-2023 Metoprolol Suc cinate ER 50 mg oral TABLET extended release Dose : 50 mg = 1 tab(s), Oral, qDay, 0 Refill(s) Start Date: 09/30/23 Status: Ordered Start: 10-11-2015 take 1 tablet by kayley th once daily metoprolol succinate XL (Toprol-XL) 50 mg 24 hr tablet Indications: Benign essential hypertension Take 1 tablet by mouth once daily 90 tablet 3 09/15/2023 Active Comment on above: Take 50 mg by mouth once daily. oseltamivir 75 mg oral capsule (2 sources) Neuraminidase Inhibitor Start: 04-05-19 23 take 1 capsule by mouth twice daily Oseltamivir Phosphate 75 MG Oral Capsule TAKE 1 CAPSULE TWICE DAILY. Quantity: 10 Refills: 0 Ordered: 05-Apr-2022 Giselle Boykin MD Start : 05-Apr-2022 Active PENICILLIN V POTASSIUM ORAL (2 sources) End: 04-29-19 25 take 500 mg by mouth four times daily PENICILLIN V POTASSIUM ORAL Take 500 mg by mouth four times daily. 04/29/2024 Discontinued take 500 mg by mouth four times daily PENICILLIN V POTASSIUM ORAL Take 500 mg by mouth four times daily. 0 Active Comment on above: Take 500 mg by mouth four times daily. rizatriptan 10 mg oral tablet (20 sources) Serotonin-1b and Serotonin-1d Receptor Agonist Start: 9 End: 5 take 1 tablet by mouth every two hours rizatriptan (Maxalt) 10 mg tablet Take by mouth every 2 hours. 0 08/15/2018 01/31/2023 Discontinued (Therapy completed) Comment on above: Take 10 mg by mouth. sertraline 50 mg oral tablet (2 sources) Serotonin Reuptake Inhibitor Start: 1 take 1 tablet by mouth once daily Sertraline HCl - 50 MG Oral Tablet TAKE 1 TABLET DAILY DIRECTED. Quantity: 30 Refills: 3 Maura Lange MD Start : 30-Apr-2020 Active 24 hr topiramate 100 mg extended release oral capsule (3 sources) End: 9 take 25 mg by mouth once daily topiramate ER (TROKENDI XR) 100 MG CP24 Take 25 mg by mouth daily 0 12/16/2018 Discontinued (Therapy completed) take 100 mg by mouth once daily topiramate ER (TROKENDI XR) 100 MG CP24 Take 100 mg by mouth daily 0 Active Problems Active Problems Problem Classification Problem Date Documented Date Episodic/Chronic Abdominal pain (7 sources) Recurrent abdominal pain; Translations: [Abdominal pain, right upper quadrant] Onset: 4 Episodic Adjustment disorders (2 sources) Adjustment disorder with depressed mood; Translations: [Adjustment disorder with depressed mood] Onset: 3 Chronic Allergic reactions (1 source) Hand eczema; Translations: [Contact dermatitis and other eczema, unspecified cause] Episodic Anxiety disorders (20 sources) Anxiety; Translations: [Other anxiety states] Onset: 3 12-07-2022 Chronic Bacterial infection; unspecified site (1 source) Other specified bacterial agents as the cause of diseases classified elsewhere; Translations: [Bacterial sinusitis] Onset: 5 Episodic Chronic kidney disease (5 sources) Chronic kidney disease stage 3B ; Translations: [Stage 3b chronic kidney disease (Multi)] Onset: 5 05-07-2024 Chronic Chronic kidney disease (2 sources) Chronic kidney disease; Translations: [Chronic kidney disease, stage 3b (Multi)] Onset: 5 Chronic obstructive pulmonary disease and bronchiectasis (3 sources) Bronchitis; Translations: [Bronchitis, not specified as acute or chronic] Onset: 5 04-29-2024 Episodic Diabetes mellitus with complications (7 sources) Hyperglycemia due to type 2 diabetes mellitus; Translations: [Type 2 diabetes mellitus with hyperglycemia] Onset: 3 03-20-2024 Chronic Diabetes mellitus without complication (20 sources) Type 2 diabetes mellitus; Translations: [Diabetes mellitus without mention of complication, type II or unspecified type, not stated as uncontrolled] Onset: 3 12-07-2022 Chronic Diseases of white blood cells (7 sources) Leukocytosis; Translations: [Elevated white blood cell count, unspecified] Onset: 5 05-07-2024 Chronic Disorders of lipid metabolism (20 sources) Mixed hyperlipidemia; Translations: [Mixed hyperlipidemia] Onset: 3 12-07-2022 Chronic Esophageal disorders (20 sources) Gastroesophageal reflux disease; Translations: [Esophageal reflux] Onset: 3 12-07-2022 Chronic Essential hypertension (20 sources) Benign essential hypertension; Translations: [Benign essential hypertension] Onset: 6 11-10-2015 Chronic Fluid and electrolyte disorders (10 sources) Hyperkalemia; Translations: [Hyperpotassemia] Episodic Headache; including migraine (20 sources) Refractory migraine without aura; Translations: [Chronic migraine without aura, with intractable migraine, so stated, with status migrainosus] Onset: 3 07-27-2003 Chronic Immunizations and screening for infectious disease (20 sources) Exposure to streptococcal pharyngitis; Translations: [Needs influenza immunization] Resolved: 7 Episodic Influenza (2 sources) Influenza-like illness; Translations: [Influenza with other respiratory manifestations] Episodic Menstrual disorders (2 sources) Menorrhagia; Translations: [Menorrhagia] Chronic Mood disorders (20 sources) Reactive depression (situational); Translations: [Adjustment disorder with depressed mood] Onset: 3 12-07-2022 Chronic Neoplasms of unspecified nature or uncertain behavior (7 sources) Post-splenectomy thrombocytosis; 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 Nutritional deficiencies (20 sources) Vitamin D deficiency; Translations: [Unspecified vitamin D deficiency] Onset: 3 12-07-2022 Chronic Other congenital anomalies (20 sources) Asplenia; Translations: [Anomalies of spleen] Onset: 3 12-07-2022 Chronic Other connective tissue disease (13 sources) Muscle weakness of limb; Translations: [Other musculoskeletal symptoms referable to limbs] Episodic Other connective tissue disease (12 sources) Foot pain; Translations: [Pain in limb] Episodic Other female genital disorders (2 sources) Abnormal uterine bleeding; Translations: [Abnormal uterine bleeding] Onset: 0 12-03-2019 Chronic Other lower respiratory disease (16 sources) Cough; Translations: [Cough] Resolved: 5 Episodic Other nervous system disorders (20 sources) Benign intracranial hypertension; Translations: [Benign intracranial hypertension] Chronic Other nervous system disorders (10 sources) Numbness of finger; Translations: [Disturbance of skin sensation] Episodic Other nervous system disorders (10 sources) Paresthesia of skin; Translations: [Paresthesia of both hands] Episodic Other nutritional; endocrine; and metabolic disorders (10 sources) Obesity; Translations: [Morbid obesity] Chronic Other nutritional; endocrine; and metabolic disorders (20 sources) Severe obesity; Translations: [Morbid obesity] Onset: 4 05-03-2023 Chronic Other nutritional; endocrine; and metabolic disorders (5 sources) Obesity caused by energy imbalance; Translations: [Obesity, unspecified] Chronic Other screening for suspected conditions (not mental disorders or infectious disease) (20 sources) Cancer cervix - screening done; Translations: [Mammography abnormal] Onset: 3 Resolved: 4 Episodic Other skin disorders (1 source) Skin lesion; Translations: [Disorder of the skin and subcutaneous tissue, unspecified] 09-19-2023 Episodic Other upper respiratory infections (5 sources) Chronic sinusitis; Translations: [Unspecified sinusitis (chronic)] Onset: 5 Resolved: 3 04-29-2024 Chronic Other upper respiratory infections (20 sources) Streptococcal sore throat; Translations: [Streptococcal sore throat] Resolved: 9 Episodic Paralysis (1 source) Paresis of lower extremity; Translations: [Lower extremity weakness] Chronic Residual codes; unclassified (16 sources) Increased body mass index; Translations: [Other symptoms concerning nutrition, metabolism, and development] Resolved: 9 10-29-2023 Episodic Residual codes; unclassified (20 sources) Past history of procedure; Translations: [Other postprocedural status] Resolved: 2 Episodic Residual codes; unclassified (6 sources) Needs influenza immunization; Translations: [History of Flu vaccine need] Episodic Residual codes; unclassified (1 source) FH: Cardiovascular disease 10-29-2023 Episodic Skin and subcutaneous tissue infections (15 sources) Cellulitis of lower limb; Translations: [Cellulitis and abscess of leg, except foot] Episodic Systemic lupus erythematosus and connective tissue disorders (20 sources) Systemic lupus erythematosus; Translations: [Systemic lupus erythematosus] Onset: 6 11-10-2015 Chronic Unclassified (12 sources) Patient encounter status; Translations: [Encounter for monitoring of hydroxychloroquine therapy] 10-09-2024 Unclassified (1 source) Other thrombocytosis; Translations: [Other thrombocytosis] Onset: Past or Other Problems Problem Classification Problem Date Documented Date Episodic/Chronic Abdominal hernia (15 sources) Incisional hernia; Translations: [Recurrent incisional hernia] Onset: 12-20-2015 Resolved: 06-24-2019 12-20-2015 Episodic Complications of surgical procedures or medical care (20 sources) Post-splenectomy thrombocytosis; 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] Onset: 12-07-2022 12-07-2022 Episodic Deficiency and other anemia (20 sources) Anemia; Translations: [Anemia, unspecified] Onset: 12-07-2022 12-07-2022 Episodic Diseases of mouth; excluding dental (14 sources) Glossodynia; Translations: [Glossodynia] Resolved: 10-16-2019 Episodic Disorders of teeth and jaw (8 sources) Infection of tooth; Translations: [Periapical abscess without sinus] Onset: 04-18-2023 Resolved: 04-29-2023 04-29-2023 Episodic Mood disorders (8 sources) Mood disorders Onset: 05-03-2023 05-03-2023 Nausea and vomiting (14 sources) Nausea and vomiting; Translations: [Nausea with vomiting] Onset: 05-07-2024 05-07-2024 Episodic Noninfectious gastroenteritis (20 sources) Chronic diarrhea; Translations: [Diarrhea] Onset: 12-07-2022 12-07-2022 Episodic Comment on above: video endoscopy 2017 ; Nonmalignant breast conditions (20 sources) Breast lump; Translations: [Lump or mass in breast] Resolved: 10-07-2014 Episodic Nonspecific chest pain (8 sources) Chest discomfort; Translations: [Other chest pain] Onset: 11-01-2023 10-29-2023 Episodic Other aftercare (18 sources) Surgical follow-up; Translations: [Follow-up examination, following other surgery] Onset: 02-29-2016 Resolved: 12-27-2017 12-27-2017 Episodic Other aftercare (20 sources) Patient encounter status; Translations: [Encounter for therapeutic drug monitoring] Onset: 04-29-2023 Resolved: 11-13-2017 05-03-2023 Episodic Comment on above: initiated med 2010; Other aftercare (6 sources) Long-term current use of hydroxychloroquine; Translations: [Encounter for therapeutic drug level monitoring] Onset: 04-29-2023 04-29-2023 Episodic Other aftercare (2 sources) Encounter for therapeutic drug level monitoring; Translations: [Encounter for therapeutic drug level monitoring] Onset: 04-29-2023 Episodic Other aftercare (2 sources) Other senior care (current) drug therapy; Translations: [Other senior care (current) drug therapy] Onset: 04-29-2023 Episodic Other and unspecified benign neoplasm (20 sources) Hemangioma of liver; Translations: [Hemangioma of intra-abdominal structures] Onset: 12-07-2022 12-07-2022 Episodic Other and unspecified benign neoplasm (2 sources) Hemangioma of intra-abdominal structures; Translations: [Hemangioma of intra-abdominal structures] Onset: 05-26-2022 Episodic Other connective tissue disease (15 sources) Pain in upper limb; Translations: [Pain in limb] Resolved: 07-17-2017 Episodic Other female genital disorders (20 sources) H/O: menorrhagia; Translations: [Personal history of other genital system and obstetric disorders] Resolved: 02-06-2020 Episodic Other infections; including parasitic (20 sources) H/O: viral illness; Translations: [Personal history of other infectious and parasitic diseases] Resolved: 10-16-2019 Episodic Other lower respiratory disease (15 sources) H/O: bronchitis; Translations: [Personal history of other diseases of respiratory system] Resolved: 09-10-2013 Episodic Comment on above: Added by Problem Nicole t Migration; 2013-03-05; Other lower respiratory disease (20 sources) H/O: respiratory disease; Translations: [Personal history of other diseases of respiratory system] Resolved: 03-13-2017 Episodic Other lower respiratory disease (11 sources) History of clinical finding in subject; Translations: [Personal history of other diseases of respiratory system] Resolved: 10-10-2022 Episodic Other non-traumatic joint disorders (8 sources) Anterior knee pain; Translations: [Pain in left knee] Onset: 09-19-2023 Resolved: 11-01-2023 09-19-2023 Episodic Other nutritional; endocrine; and metabolic disorders (20 sources) Body mass index 30+ - obesity; Translations: [Body Mass Index 36.0-36.9, adult] Resolved: 02-05-2020 Chronic Other nutritional; endocrine; and metabolic disorders (20 sources) H/O: metabolic disorder; Translations: [Personal history of other endocrine, metabolic, and immunity disorders] Resolved: 04-28-2021 Episodic Other skin disorders (2 sources) Disorder of the skin and subcutaneous tissue, unspecified; Translations: [Disorder of the skin and subcutaneous tissue, unspecified] Onset: 09-19-2023 Episodic Otitis media and related conditions (3 sources) Acute otitis media; Translations: [Otitis media, unspecified, unspecified ear] Onset: 11-27-2023 11-27-2023 Episodic Pancreatic disorders (not diabetes) (20 sources) Cyst and pseudocyst of pancreas; Translations: [Cyst of pancreas] Onset: 01-22-2003 Resolved: 04-29-2023 07-27-2003 Episodic Residual codes; unclassified (20 sources) History of influenza vaccination; Translations: [Other specified conditions influencing health status] Resolved: 10-16-2019 Episodic Residual codes; unclassified (11 sources) H/O: gastrointestinal disease; Translations: [Personal history of other diseases of digestive system] Resolved: 09-14-2021 Episodic Residual codes; unclassified (3 sources) Family history of diabetes mellitus; Translations: [Family history of diabetes mellitus] Onset: 01-22-2003 07-27-2003 Episodic Residual codes; unclassified (6 sources) Amnesia; Translations: [Other amnesia] Onset: 11-01-2023 11-01-2023 Episodic Residual codes; unclassified (2 sources) Acquired absence of spleen; Translations: [Acquired absence of spleen] Onset: 12-07-2022 Episodic Residual codes; unclassified (2 sources) Other amnesia; Translations: [Other amnesia] Onset: 11-01-2023 Episodic Unclassified (5 sources) History of clinical finding in subject; Translations: [History of sore throat] Unclassified (9 sources) History of influenza vaccination; Translations: [History of influenza vaccination] Unclassified (9 sources) Onset: 03-20-2023 Resolved: 08-19-2024 03-20-2023 Unclassified (1 source) Other thrombocytosis; Translations: [Other thrombocytosis] Onset: 05-07-2024 Urinary tract infections (3 sources) Urinary tract infectious disease; Translations: [Urinary tract infection, site not specified] Onset: 11-10-2015 11-10-2015 Episodic NEGATED: Highlighted row has not occurred!Residual codes; unclassified (20 sources) Disease Episodic Results Test Name Value Interpretation Reference Range Facility BI MAMMO BILATERAL SCREENING TOMOSYNTHESISon 10-09-2024 BI MAMMO BILATERAL SCREENING TOMOSYNTHESIS Interpreted By: Aranza Carter and Shah Love STUDY: BI MAMMO BILATERAL SCREENING TOMOSYNTHESIS; 10/09/2024 10:11 am ACCESSION NUMBER(S): [id number] ORDERING CLINICIAN: GISELLE BOYKIN INDICATION: Screening. COMPARISON: 05/11/2022, 05/11/2020, 04/15/2020 FINDINGS: 2D and tomosynthesis images were reviewed at 1 mm slice thickness. Best images possible per technologist's note. Density: There are scattered areas of fibroglandular density. No suspicious masses or calcifications are identified. IMPRESSION: No mammographic evidence of malignancy. BI-RADS CATEGORY: BI-RADS Category: 1 Negative. Recommendation: Annual Screening. Recommended Date: 1 Year. Laterality: Bilateral. For any future breast imaging appointments, please call [phone]). MACRO: None Signed by: Aranza Carter 10/10/2024 3:41 PM Dictation workstation: [id number] [facility] BASIC METABOLIC PANEL WITH A NION GAPon 08-20-2024 Calcium [Mass/Vol] 9.5 mg/dL Normal 8.6-10.4 [facility] Comment on above: Order Comment: FASTI NG:YES FASTING: YES Performed By: #### [id number], [id number] #### [facility] [address], [address] [place], [place] [id number] Safety Net Maker: Giovanni Rubio MD Chloride [Moles/Vol] 102 mmol/L Normal 98-110 [facility] Comment on above: Order Comment: FASTI NG:YES FASTING: YES Performed By: #### [id number], [id number] #### [facility] [address], [address] [place], [place] [id number] Safety Net Maker: Giovanni Rubio MD CO2 [Moles/Vol] 25 mmol/L Normal 20-32 [facility] Comment on above: Order Comment: FASTI NG:YES FASTING: YES Performed By: #### [id number], [id number] #### [facility] [address], [address] [place] [address] Safety Net Maker: Giovanni Rubio MD Creatinine [Mass/Vol] 1.12 mg/dL High 0.50-1.03 [facility] Comment on above: Order Comment: FASTI NG:YES FASTING: YES Performed By: #### [id number], [id number] #### [facility] [address], [address] [place] [address] Safety Net Maker: Giovanni Rubio MD ELECTROLYTE BALANCE 11 mmol/L (calc) Normal 7-17 [facility] Comment on above: Order Comment: FASTI NG:YES FASTING: YES Performed By: #### [id number], [id number] #### [facility] [address], [address] [place] [address] Safety Net Maker: Giovanni Rubio MD GFR/1.73 sq M.predicted among non-blacks MDRD (S/P/Bld) [Vol rate/Area] 59 mL/min/{1.73_m2} Low > OR = 60 [facility] Comment on above: Order Comment: FASTI NG:YES FASTING: YES Performed By: #### [id number], [id number] #### [facility] [address], [address] [place] [address] Safety Net Maker: Giovanni Rubio MD Glucose [Mass/Vol] 81 mg/dL Normal 65-99 [facility] Comment on above: Order Comment: FASTI NG:YES FASTING: YES Result Comment: Fasting reference interval Performed By: #### 6 [id number], [id number] #### [facility] [address], [address] [place] [address] Safety Net Maker: Giovanni Rubio MD Potassium [Moles/Vol] 5.2 mmol/L Normal 3.5-5.3 [facility] Comment on above: Order Comment: FASTI NG:YES FASTING: YES Performed By: #### 6 [id number], [id number] #### [facility] [place] [address] Safety Net Maker: Giovanni Rubio MD Sodium [Moles/Vol] 138 mmol/L Normal 135-146 [facility] Comment on above: Order Comment: FASTI NG:YES FASTING: YES Performed By: #### 6 [id number], [id number] #### [facility] [address], [address] [place] [address] Safety Net Maker: Giovanni Rubio MD Urea nitrogen [Mass/Vol] 14 mg/dL Normal 7- [facility] Comment on above: Order Comment: FASTI NG:YES FASTING: YES Performed By: #### 6 399, 21365 #### [facility] [address], [address] [place] [address] Safety Net Maker: Giovanni Rubio MD Urea nitrogen/Creatinine [Mass ratio] 13 mg/mg Normal - [facility] Comment on above: Order Comment: FASTI NG:YES FASTING: YES Performed By: #### 6 399, 10403 #### [facility] [address], [address] [place] [address] Safety Net Maker: Giovanni Rubio MD CBC (INCLUDES DIFF/PLT)on Basophils (Bld) [#/Vol] 0.17 10*3/uL Normal 0-200 [facility] Comment on above: Performed By: #### 6 399, 09299 #### [facility] [address], [address] [place] [address] Safety Net Maker: Giovanni Rubio MD Basophils/100 WBC (Bld) 1.7 % Normal [facility] Comment on above: Performed By: #### 6 399, 56537 #### [facility] [address], [address] [place] [address] Safety Net Maker: Giovanni Rubio MD Eosinophils (Bld) [#/Vol] 0.55 10*3/uL High 15-500 [facility] Comment on above: Performed By: #### 6 399, 49186 #### [facility] [place] [address] Safety Net Maker: Giovanni Rubio MD Eosinophils/100 WBC (Bld) 5.5 % Normal [facility] Comment on above: Performed By: #### 6 399, 82104 #### [facility] [place] [address] Safety Net Maker: Giovanni Rubio MD Erythrocyte distribution width (RBC) [Ratio] 14.7 % Normal 11.0-15.0 [facility] Comment on above: Performed By: #### 6 399, 63410 #### [facility] [place] [address] Safety Net Maker: Giovanni Rubio MD Hematocrit (Bld) [Volume fraction] 42.6 % Normal 35.0-45.0 [facility] Comment on above: Performed By: #### 6 399, 18596 #### [facility] [place] [address] Safety Net Maker: Giovanni Rubio MD Hemoglobin (Bld) [Mass/Vol] 13.5 g/dL Normal 11.7-15.5 [facility] Comment on above: Performed By: #### 6 399, 97634 #### [facility] [place] [address] Safety Net Maker: Giovanni Rubio MD Lymphocytes (Bld) [#/Vol] 2.28 10*3/uL Normal 850-3900 [facility] Comment on above: Performed By: #### 6 399, 93470 #### [facility] [place] [address] Safety Net Maker: Giovanni Rubio MD Lymphocytes/100 WBC (Bld) 22.8 % Normal [facility] Comment on above: Performed By: #### 6 399, 39399 #### [facility] [place] [address] Safety Net Maker: Giovanni Rubio MD MCH (RBC) [Entitic mass] 29.3 pg Normal 27.0-33.0 [facility] Comment on above: Performed By: #### 6 399, 03316 #### [facility] [place] [address] Safety Net Maker: Giovanni Rubio MD MCHC (RBC) [Mass/Vol] 31.7 g/dL Low 32.0-36.0 [facility] Comment on above: Result Comment: For adults, a slight decrease in the calculated MCHC value (in the range of 30 to 32 g/dL) is most likely not clinically significant; however, it should be interpreted with caution in correlation with other red cell parameters and the patient's clinical condition. Performed By: #### 6 399, 36695 #### [facility] [place] [address] Safety Net Maker: Giovanni Rubio MD MCV (RBC) [Entitic vol] 92.6 fL Normal 80.0-100.0 [facility] Comment on above: Performed By: #### 6 399, 32789 #### [facility] [place] [address] Safety Net Maker: Giovanni Rubio MD Monocytes (Bld) [#/Vol] 0.89 10*3/uL Normal 200-950 [facility] Comment on above: Performed By: #### 6 399, 76058 #### [facility] [place] [address] Safety Net Maker: Giovanni Rubio MD Monocytes/100 WBC (Bld) 8.9 % Normal [facility] Comment on above: Performed By: #### 6 399, 04973 #### [facility] [place] [address] Safety Net Maker: Giovanni Rubio MD Neutrophils (Bld) [#/Vol] 6.11 10*3/uL Normal 9487-7810 [facility] Comment on above: Performed By: #### 6 399, 63377 #### [facility] [place] [address] Safety Net Maker: Giovanni Rubio MD Neutrophils/100 WBC (Bld) 61.1 % Normal [facility] Comment on above: Performed By: #### 6 399, 64636 #### [facility] [place] [address] Safety Net Maker: Giovanni Rubio MD Platelet mean volume (Bld) [Entitic vol] 10.7 fL Normal 7.5-12.5 [facility] Comment on above: Performed By: #### 6 399, 45747 #### [facility] [place] [address] Safety Net Maker: Giovanni Rubio MD Platelets (Bld) [#/Vol] 481 10*3/uL High 140-400 [facility] Comment on above: Performed By: #### 6 399, 38099 #### [facility] [place] [address] Safety Net Maker: Giovanni Rubio MD RBC (Bld) [#/Vol] 4.60 10*6/uL Normal 3.80-5.10 [facility] Comment on above: Performed By: #### 6 399, 72829 #### [facility] [place] [address] Safety Net Maker: Giovanni Rubio MD WBC (Bld) [#/Vol] 10.0 10*3/uL Normal 3.8-10.8 [facility] Comment on above: Performed By: #### 6 399, 62328 #### [facility] [place] [address] Safety Net Maker: Giovanni Rubio MD HEMOGLOBIN A1c WITH eAGon eAG (mmol/L) 7.0 mmol/L Normal [facility] Comment on above: Performed By: #### 6 399, 41591 #### [facility] [place] [address] Safety Net Maker: Giovanni Rubio MD HbA1c (Bld) [Mass fraction] 6.0 % High <5.7 [facility] Comment on above: Result Comment: For someone without known diabetes, a hemoglobin A1c value between 5.7% and 6.4% is consistent with prediabetes and should be confirmed with a follow-up test. For someone with known diabetes, a value <7% indicates that their diabetes is well controlled. A1c targets should be individualized based on duration of diabetes, age, comorbid conditions, and other considerations. This assay result is consistent with an increased risk of diabetes. Currently, no consensus exists regarding use of hemoglobin A1c for diagnosis of diabetes for children. Performed By: #### 6 399, 44942 #### [facility] [address], [address] [place] [address] Safety Net Maker: Giovanni Rubio MD Magnesium [Mass/Vol] 126 mg/dL Normal [facility] Comment on above: Performed By: #### 6 399, 10752 #### [facility] [address], [address] [place] [address] Safety Net Maker: Giovanni Rubio MD ANTI DNAon 05-12-2024 ANTI-DNA Negative Normal [facility] Comment on above: Result Comment: This test is a screen, if positive refer to the quantitative test. Performed By: #### 1 65523 #### [facility] [address] [place] [address] Safety Net Maker: Manjinder Butler MD COMP C3on 05-09-2024 Complement C3 138 mg/dL Normal 90-180 [facility] Comment on above: Result Comment: REFE RENCE INTERVAL: Complement Component 3 Access complete set of age- and/or gender-specific reference intervals for this test in the [employer] [facility] Test Directory ([employer]). Performed By: [facility] [address] [place] [address] Grievance Manager: Yair Gallego MD, PhD CLIA Number: [id number] Performed By: #### 1 20053, [id number] #### [facility] [address] [place] [address] Safety Net Maker: Manjinder Butler MD COMP C4on 05-09-2024 Complement C4 46 mg/dL High 10-40 [facility] Comment on above: Result Comment: REFE RENCE INTERVAL: Complement Component 4 Access complete set of age- and/or gender-specific reference intervals for this test in the [employer] [facility] Test Directory ([employer]). Performed By: [facility] [address] [place] [address] Grievance Manager: Yair Gallego MD, PhD CLIA Number: [id number] Performed By: #### 1 36082, 371007 #### [facility] [address] [place], [place] [id number] Safety Net Maker: Manjinder Butler MD ALBUMIN, RANDOM URINE W/CREA TININEon 05-08-2024 ALBUMIN, URINE <0.2 Normal See Note: [facility] Comment on above: Result Comment: Refe rence Range: Reference Range Not established Performed By: #### 6 517 #### [facility] [address], [address] [place] [address] Safety Net Maker: Giovanni Rubio MD ALBUMIN/CREATININE RATIO, RANDOM URINE NOTE Normal <30 [facility] Comment on above: Result Comment: NOTE : The urine albumin value is less than 0.2 mg/dL therefore we are unable to calculate excretion and/or creatinine ratio. The ADA defines abnormalities in albumin excretion as follows: Albuminuria Category Result (mg/g creatinine) Normal to Mildly increased <30 Moderately increased 30-299 Severely increased > OR = 300 The ADA recommends that at least two of three specimens collected within a 3-6 month period be abnormal before considering a patient to be within a diagnostic category. Performed By: #### 6 517 #### [facility] [address], [address] [place] [address] Safety Net Maker: Giovanni Rubio MD Creatinine (U) [Mass/Vol] 143 mg/dL Normal 20-275 [facility] Comment on above: Performed By: #### 6 517 #### [facility] [address], [address] [place] [address] Safety Net Maker: Giovanni Rubio MD CRP QUANTon 05-07-2024 C-Reactive Protein, Quantitative <0.5 Normal 0.0-0.5 [facility] Comment on above: Result Comment: ?- C RP testing for cardiovascular risk assessment should not be performed while there is an indication of active infection, systemic inflammation, or trauma. Performed By: #### 6 [id number], [id number] #### [facility] [address] [place] [address] Safety Net Maker: Manjinder Butler MD POCT glycosylated hemoglobin (Hb A1C) manually resultedon 05-07-2024 HbA1c (Bld) [Mass fraction] 6.3 % 4.2 - 6.5 % [facility] Work Phone: [facility] Work Phone: SED RATEon 05-07-2024 Sed Rate Westergren 28 mm/hr Normal 0-30 [facility] Comment on above: Performed By: #### 6 [id number], [id number] #### [facility] [address] [place] [address] Safety Net Maker: Manjinder Butler MD CBC (INCLUDES DIFF/PLT)on Basophils (Bld) [#/Vol] 0.156 10*3/uL Normal 0-200 [facility] Comment on above: Performed By: #### 9 2665, 35341, 4699, 7600 #### [facility] [place] [address] Safety Net Maker: Giovanni Rubio MD Basophils/100 WBC (Bld) 1.1 % Normal [facility] Comment on above: Performed By: #### 9 2665, 16629, 6399, 7600 #### [facility] [address], [address] [place] [address] Safety Net Maker: Giovanni Rubio MD COMMENT(S) Normal [facility] Comment on above: Result Comment: Revi ew of peripheral smear confirms automated results. Performed By: #### 9 2665, 44437, 6399, 7600 #### [facility] [address], [address] [place] [address] Safety Net Maker: Giovanni Rubio MD Eosinophils (Bld) [#/Vol] 0.227 10*3/uL Normal 15-500 [facility] Comment on above: Performed By: #### 9 2665, 10933, 6399, 7600 #### [facility] [place] [address] Safety Net Maker: Giovanni Rubio MD Eosinophils/100 WBC (Bld) 1.6 % Normal [facility] Comment on above: Performed By: #### 9 2665, 82598, 6399, 7600 #### [facility] [place] [address] Safety Net Maker: Giovanni Rubio MD Erythrocyte distribution width (RBC) [Ratio] 13.5 % Normal 11.0-15.0 [facility] Comment on above: Performed By: #### 9 2665, 46074, 6399, 7600 #### [facility] [place] [address] Safety Net Maker: Giovanni Rubio MD Hematocrit (Bld) [Volume fraction] 40.5 % Normal 35.0-45.0 [facility] Comment on above: Performed By: #### 9 2665, 43043, 6399, 7600 #### [facility] [place] [address] Safety Net Maker: Giovanni Rubio MD Hemoglobin (Bld) [Mass/Vol] 13.4 g/dL Normal 11.7-15.5 [facility] Comment on above: Performed By: #### 9 2665, 84375, 6399, 7600 #### [facility] [place] [address] Safety Net Maker: Giovanni Rubio MD Lymphocytes (Bld) [#/Vol] 3.649 10*3/uL Normal 850-3900 [facility] Comment on above: Performed By: #### 9 2665, 64749, 6399, 7600 #### [facility] [place] [address] Safety Net Maker: Giovanni Rubio MD Lymphocytes/100 WBC (Bld) 25.7 % Normal [facility] Comment on above: Performed By: #### 9 2665, 22436, 6399, 7600 #### [facility] [place] [address] Safety Net Maker: Giovanni Rubio MD MCH (RBC) [Entitic mass] 29.1 pg Normal 27.0-33.0 [facility] Comment on above: Performed By: #### 9 5, 23504, 6399, 7600 #### [facility] [address], [address] [place] [address] Safety Net Maker: Giovanni Rubio MD MCHC (RBC) [Mass/Vol] 33.1 g/dL Normal 32.0-36.0 [facility] Comment on above: Result Comment: For adults, a slight decrease in the calculated MCHC value (in the range of 30 to 32 g/dL) is most likely not clinically significant; however, it should be interpreted with caution in correlation with other red cell parameters and the patient's clinical condition. Performed By: #### 9 5, 06891, 63, 7600 #### [facility] [place] [address] Safety Net Maker: Giovanni Rubio MD MCV (RBC) [Entitic vol] 87.9 fL Normal 80.0-100.0 [facility] Comment on above: Performed By: #### 9 2664, 53922, 63, 7600 #### [facility] [place] [address] Safety Net Maker: Giovanni Rubio MD Monocytes (Bld) [#/Vol] 1.448 10*3/uL High 200-950 [facility] Comment on above: Performed By: #### 9 266, 61855, 6399, 7600 #### [facility] [place] [address] Safety Net Maker: Giovanni Rubio MD Monocytes/100 WBC (Bld) 10.2 % Normal [facility] Comment on above: Performed By: #### 9 2664, 91790, 6399, 7600 #### [facility] [address], [address] [place] [address] Safety Net Maker: Giovanni Rubio MD Neutrophils (Bld) [#/Vol] 8.719 10*3/uL High 2027-0798 [facility] Comment on above: Performed By: #### 9 2665, 02544, 6399, 7600 #### [facility] [address], [address] [place] [address] Safety Net Maker: Giovanni Rubio MD Neutrophils/100 WBC (Bld) 61.4 % Normal [facility] Comment on above: Performed By: #### 9 2665, 29465, 6399, 7600 #### [facility] [address], [address] [place] [address] Safety Net Maker: Giovanni Rubio MD Platelet mean volume (Bld) [Entitic vol] 9.2 fL Normal 7.5-12.5 [facility] Comment on above: Performed By: #### 9 2665, 93742, 6399, 7600 #### [facility] [place] [address] Safety Net Maker: Giovanni Rubio MD Platelets (Bld) [#/Vol] 663 10*3/uL High 140-400 [facility] Comment on above: Performed By: #### 9 2665, 72482, 6399, 7600 #### [facility] [place] [address] Safety Net Maker: Giovanni Rubio MD RBC (Bld) [#/Vol] 4.61 10*6/uL Normal 3.80-5.10 [facility] Comment on above: Performed By: #### 9 2665, 47448, 6399, 7600 #### [facility] [place] [address] Safety Net Maker: Giovanni Rubio MD WBC (Bld) [#/Vol] 14.2 10*3/uL High 3.8-10.8 [facility] Comment on above: Performed By: #### 9 2665, 03836, 6399, 7600 #### [facility] [address], [address] [place] [address] Safety Net Maker: Giovanni Rubio MD COMPREHENSIVE METABOLIC PANE L W/ANION GAPon 05-06-2024 Albumin [Mass/Vol] 3.9 g/dL Normal 3.6-5.1 [facility] Comment on above: Performed By: #### 9 2665, 37746, 6399, 7600 #### [facility] [address], [address] [place] [address] Safety Net Maker: Giovanni Rubio MD ALP [Catalytic activity/Vol] 116 U/L Normal 37-153 [facility] Comment on above: Performed By: #### 9 2665, 00324, 6399, 7600 #### [facility] [address], [address] [place] [address] Safety Net Maker: Giovanni Rubio MD ALT [Catalytic activity/Vol] 9 U/L Normal 6-29 [facility] Comment on above: Performed By: #### 9 2665, 73471, 6399, 7600 #### [facility] [place] [address] Safety Net Maker: Giovanni Rubio MD AST [Catalytic activity/Vol] 15 U/L Normal 10-35 [facility] Comment on above: Performed By: #### 9 2665, 95713, 6399, 7600 #### [facility] [place] [address] Safety Net Maker: Giovanni Rubio MD Bilirubin [Mass/Vol] 0.5 mg/dL Normal 0.2-1.2 [facility] Comment on above: Performed By: #### 9 2665, 79359, 6399, 7600 #### [facility] [place] [address] Safety Net Maker: Giovanni uRbio MD Calcium [Mass/Vol] 9.4 mg/dL Normal 8.6-10.4 [facility] Comment on above: Performed By: #### 9 8655, 99550, 6399, 7600 #### [facility] [address], [address] [place] [address] Safety Net Maker: Giovanni Rubio MD Chloride [Moles/Vol] 97 mmol/L Low 98-110 [facility] Comment on above: Performed By: #### 9 7355, 49748, 6399, 7600 #### [facility] [place] [address] Safety Net Maker: Giovanni Rubio MD CO2 [Moles/Vol] 26 mmol/L Normal 20-32 [facility] Comment on above: Performed By: #### 9 0625, 09701, 6399, 7600 #### [facility] [place] [address] Safety Net Maker: Giovanni Rubio MD Creatinine [Mass/Vol] 1.59 mg/dL High 0.50-1.03 [facility] Comment on above: Performed By: #### 9 8235, 37676, 6399, 7600 #### [facility] [place] [address] Safety Net Maker: Giovanni Rubio MD ELECTROLYTE BALANCE 11 mmol/L (calc) Normal 7-17 [facility] Comment on above: Performed By: #### 9 8075, 48294, 6399, 7600 #### [facility] [place] [address] Safety Net Maker: Giovanni Rubio MD GFR/1.73 sq M.predicted among non-blacks MDRD (S/P/Bld) [Vol rate/Area] 39 mL/min/{1.73_m2} Low > OR = 60 [facility] Comment on above: Performed By: #### 9 9085, 11064, 6399, 7600 #### [facility] [place] [address] Safety Net Maker: Giovanni Rubio MD Glucose [Mass/Vol] 98 mg/dL Normal 65-99 [facility] Comment on above: Result Comment: Fasting reference interval Performed By: #### 9 7115, 46334, 6399, 7600 #### [facility] [address], [address] [place] [address] Safety Net Maker: Giovanni Rubio MD Potassium [Moles/Vol] 5.2 mmol/L Normal 3.5-5.3 [facility] Comment on above: Performed By: #### 9 2665, 14864, 6399, 7600 #### [facility] [place] [address] Safety Net Maker: Giovanni Rubio MD Protein [Mass/Vol] 6.5 g/dL Normal 6.1-8.1 [facility] Comment on above: Performed By: #### 9 2665, 75524, 6399, 7600 #### [facility] [place] [address] Safety Net Maker: Giovanni Rubio MD Sodium [Moles/Vol] 134 mmol/L Low 135-146 [facility] Comment on above: Performed By: #### 9 2665, 06636, 6399, 7600 #### [facility] [place] [address] Safety Net Maker: Giovanni Rubio MD Urea nitrogen [Mass/Vol] 26 mg/dL High 7-25 [facility] Comment on above: Performed By: #### 9 2665, 90583, 6399, 7600 #### [facility] [place] [address] Safety Net Maker: Giovanni Rubio MD HEMOGLOBIN A1c WITH eAGon eAG (mmol/L) 8.2 mmol/L Normal [facility] Comment on above: Performed By: #### 9 2665, 57099, 6399, 7600 #### [facility] [place] [address] Safety Net Maker: Giovanni Rubio MD HEMOGLOBIN A1c 6.8 % of total Hgb High <5.7 [facility] Comment on above: Result Comment: For someone without known diabetes, a hemoglobin A1c value of 6.5% or greater indicates that they may have diabetes and this should be confirmed with a follow-up test. For someone with known diabetes, a value <7% indicates that their diabetes is well controlled and a value greater than or equal to 7% indicates suboptimal control. A1c targets should be individualized based on duration of diabetes, age, comorbid conditions, and other considerations. Currently, no consensus exists regarding use of hemoglobin A1c for diagnosis of diabetes for children. Performed By: #### 9 2665, 09430, 6399, 7600 #### [facility] [address], [address] [place] [address] Safety Net Maker: Giovanni Rubio MD Magnesium [Mass/Vol] 148 mg/dL Normal [facility] Comment on above: Performed By: #### 9 2665, 40389, 6399, 7600 #### [facility] [place] [address] Safety Net Maker: Giovanni Rubio MD LIPID PANEL, [facility] Cholesterol [Mass/Vol] 127 mg/dL Normal <200 [facility] Comment on above: Order Comment: FASTI NG:YES FASTING: YES Performed By: #### 9 2665, 70395, 6399, 7600 #### [facility] [place] [address] Safety Net Maker: Giovanni Rubio MD Cholesterol in HDL [Mass/Vol] 47 mg/dL Low > OR = 50 [facility] Comment on above: Order Comment: FASTI NG:YES FASTING: YES Performed By: #### 9 2665, 43178, 6399, 7600 #### [facility] [place] [address] Safety Net Maker: Giovanni Rubio MD Cholesterol in LDL [Mass/Vol] 57 mg/dL Normal [facility] Comment on above: Order Comment: FASTI NG:YES FASTING: YES Result Comment: Refe rence range: <100 Desirable range <100 mg/dL for primary prevention; <70 mg/dL for patients with CHD or diabetic patients with > or = 2 CHD risk factors. LDL-C is now calculated using the Manjinder-Chavez calculation, which is a validated novel method providing better accuracy than the Friedewald equation in the estimation of LDL-C. Manjinder SS et al. RICK. 2013;310(19): 9418-3786 (http://education.[employer]/faq/AVH065) Performed By: #### 9 2345, 44137, 6399, 7600 #### [facility] [address], [address] [place] [address] Safety Net Maker: Giovanni Rubio MD Cholesterol.total/C holesterol in HDL [Mass ratio] 2.7 {ratio} Normal <5.0 [facility] Comment on above: Order Comment: FASTI NG:YES FASTING: YES Performed By: #### 9 3745, 17423, 6399, 7600 #### [facility] [address], [address] [place] [address] Safety Net Maker: Giovanni Rubio MD NON HDL CHOLESTEROL 80 mg/dL (calc) Normal <130 [facility] Comment on above: Order Comment: FASTI NG:YES FASTING: YES Result Comment: For patients with diabetes plus 1 major ASCVD risk factor, treating to a non-HDL-C goal of <100 mg/dL (LDL-C of <70 mg/dL) is considered a therapeutic option. Performed By: #### 9 1615, 65425, 6399, 7600 #### [facility] [address], [address] [place] [address] Safety Net Maker: Giovanni Rubio MD Triglyceride [Mass/Vol] 151 mg/dL High <150 [facility] Comment on above: Order Comment: FASTI NG:YES FASTING: YES Performed By: #### 9 6715, 76721, 6399, 7600 #### [facility] [address], [address] [place] [address] Safety Net Maker: Giovanni ROTHOVon 04-29-2024 CNOV Office Visit ([facility] ) ----- CHINA ORTIZ ([id number]) 1970 F Date Time Provider Department 04/29/24 1:55 PM STEPHANIE WILDER During your visit today, we recorded the following information about you: Temperature Pulse Respiration Blood pressure 98.6 degrees 95/minute 18/minute 112/80 Weight 90.7 kg Stephanie Wilder, WAREHOUSE 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[employer] DUTY MANAGER 04/29/2024 3:35 PM Signed China Ortiz is a 54 year old female who presents with Cough (Cough x 1 week/Vomiting, diarrhea and sore throat x 2-3 days ) China is a 54 year old female coming in with patient complaining of coughing for 1 weeks. Cough is described as moist, productive with yellow sputum, congested. Associated symptoms include congestion, sore throat, and wheezing. History is negative for chest pain, stridor, and trouble breathing. No Temperature at home . Activity, oral fluid intake and urine output are normal. Treatments have included OTC cough suppressants, with minimal. PAST MEDICAL HISTORY Diagnosis Date Acute pancreatitis 09/2002 3 previous bouts Cyst and pseudocyst of pancreas 2002 Family history of diabetes mellitus Lupus Migraine without aura ACTIVE PROBLEM LIST Cyst and Pseudocyst of Pancreas Acute Pancreatitis Migraine Without Aura Family History of Diabetes Mellitus Migraine Uti (Urinary Tract Infection) Lupus Essential Hypertension Current Outpatient Medications Medication Sig Dispense Refill TRUE METRIX GLUCOSE TEST STRIP test strip USE TO CHECK FASTING GLUCOSE ONCE DAILY buPROPion XL (WELLBUTRIN XL) 150 mg 24 hr tablet TAKE 1 TABLET BY MOUTH ONCE DAILY IN THE MORNING DO NOT CRUSH, CHEW OR SPLIT FEROSUL 325 mg (65 mg iron) tablet Take 1 tablet by mouth two times a day with meals. hydroCHLOROthiazide 25 mg tablet Take 25 mg by mouth. promethazine (PHENERGAN) 25 mg tablet Take 1 tablet by mouth every 8 hours as needed for nausea/vomiting. Do NOT take hydroxyzine with this medication. 12 tablet 0 hydrOXYzine HCl (ATARAX) 25 mg tablet Take 25 mg by mouth twice daily as needed. zonisamide (ZONEGRAN) 100 mg capsule Take 300 mg by mouth daily at bedtime. omeprazole (PRILOSEC) 40 mg capsule Take 40 mg by mouth once daily. escitalopram oxalate (LEXAPRO) 20 mg tablet Take 20 mg by mouth once daily. metFORMIN (GLUCOPHAGE) 500 mg tablet Take 500 mg by mouth twice daily. rosuvastatin (CRESTOR) 5 mg tablet Take 5 mg by mouth daily at bedtime. diclofenac, EC, (VOLTAREN) 75 mg EC tablet Take 75 mg by mouth twice daily. lisinopril (ZESTRIL, PRINIVIL) 20 mg tablet Take 20 mg by mouth once daily. metoprolol succinate ER (TOPROL XL) 50 mg 24 hr tablet Take 50 mg by mouth once daily. hydroxychloroquine (PLAQUENIL) 200 mg tablet Take 200 mg by mouth twice daily. ALPRAZolam (XANAX) 0.5 mg tablet Take 0.5 mg by mouth three times daily as needed. No current facility-administered medications for this visit. Social History Tobacco Use Smoking status: Never Passive exposure: Never Vaping Use Vaping status: Never Used Substance Use Topics Alcohol use: Not Currently Drug use: Never Alcohol Use: Not Currently Tobacco Use: Never FAMILY HISTORY Problem Relation Age of Onset Hypertension Mother Lipids Mother Heart Father Hypertension Father other (Uterine Cancer) Mother other (Colon Polyps) Father Cervical Cancer Sister other (Uterine Cancer) Sister other (Alcoholism) Brother Diabetes Maternal Grandmother Diabetes Paternal Grandmother Review of Systems Constitutional: Positive for malaise/fatigue. Negative for chills and fever. HENT: Positive for congestion and sore throat. Negative for ear discharge, ear pain, nosebleeds, sinus pain and tinnitus. Respiratory: Positive for cough, sputum production and wheezing. Negative for shortness of breath and stridor. Cardiovascular: Negative for chest pain and palpitations. Gastrointestinal: Positive for diarrhea and vomiting. Negative for abdominal pain, blood in stool, constipation and nausea. Neurological: Positive for headaches. Negative for dizziness. BP 112/80 Pulse 95 Temp (Src) 98.6 (Temporal) Resp 18 Wt 200 lb (90.7kg) SpO2 97% LMP 11/03/2015 Physical Exam Vitals and nursing note reviewed. Constitutional: Appearance: Normal appearance. HENT: Head: Normocephalic and atraumatic. Right Ear: Hearing, tympanic membrane, ear canal and external ear normal. No mastoid tenderness. Left Ear: Hearing, tympanic membrane, ear canal and external ear normal. No mastoid tenderness. Nose: Comments: Nose: Turbinates with erythema, edema, and discharge, no complete obstructions, boggy nasal, mucus membranes pink, sinus tenderness to percussion Mouth/Throat: Mouth: Mucous membranes are moist. Pharynx: Uvula midline. Posterior oropharyngeal erythema and postnasal drip present. No pharyngeal swelling, oropharyngeal exudate or uvula swelling (more content not included)... [facility] XR CHEST 2V FRONTAL/LATon XR CHEST 2V FRONTAL/LAT * * *Final Report* * * DATE OF EXAM: Apr 29 2024 3:37PM RMX [id number] - XR CHEST 2V FRONTAL/LAT / PROCEDURE REASON: Bronchitis * * * * Physician Interpretation * * * * EXAMINATION: CHEST RADIOGRAPH (2 VIEW FRONTAL and LATERAL) CLINICAL HISTORY: Bronchitis MQ: [id number] EXAM DATE/TIME: 04/29/2024 3:37 PM COMPARISON: 07/11/2015 RESULT: Lines, tubes, and devices: None. Lungs and pleura: The costophrenic angles are clear. No acute infiltrates or congestion is seen. Cardiomediastinal silhouette: The cardiac silhouette is normal in size. Bones and soft tissues: There is unchanged elevation of the right hemidiaphragm. IMPRESSION: No acute abnormalities. Rhythmic Gymnastics Coach: RANDALL Transcribe Date/Time: Apr 30 2024 8:44A Dictated by : WERNER KENNEDY MD This examination was interpreted and the report reviewed and electronically signed by: WERNER KENNEDY MD on Apr 30 2024 8:45AM EST [id number] [facility] Urgent Care Visit Reporton 1 Urgent Care Visit Report [facility] [address], [address] [place], [place] [id number] OFFICE VISIT Date of Service: 01/29/24 MR#: [id number] Acct: [id number] Name: CHINA ORTIZ Rep #: [id number] : 1970 Provider: PREMA Munoz Age/Sex: 53/F Location: [facility] Status: Signed Intake Intake Visit Reasons: PRE EMP/NON DOT/PHYSICAL/[facility] Medical History (Updated 01/29/24 @ 13:01 by Mo LLOYD PA) Physical exam, pre-employment HPI HPI Details: CHINA ORTIZ, is a 53 F who presents to the office today for Office Procedures Physical Exam Coding PE Coding Pre-employment PE: Yes Coding Level of Care Code No Charge Diagnoses Physical exam, pre-employment Z02.1 Assessment and Plan Assessment and Plan (1) Physical exam, pre-employment: Status: Acute 01/29/24 1301 Date [facility] Signature: Date (if applicable) CC: Normal [facility] .Auto Diffon 11-14-2023 Basophil, Absolute 0.1 10 3/mcL Normal 0.0-0.3 [facility] ([place]) Comment on above: Performed By: #### T CHICO, DIMER, TSHR, A1C, LIPID #### [address] [address] Basophils/100 WBC (Bld) 0.6 % Normal 0.0-2.5 [facility] ([place]) Comment on above: Performed By: #### T CHICO, DIMER, TSHR, A1C, LIPID #### [address] [address] Eosinophil, Absolute 0.0 10 3/mcL Normal 0.0-0.7 [facility] ([place]) Comment on above: Performed By: #### T CHICO, DIMER, TSHR, A1C, LIPID #### [address] [address] Eosinophils/100 WBC (Bld) 0.2 % Normal 0.0-6.0 [facility] ([place]) Comment on above: Performed By: #### T RICHHS, DIMER, TSHR, A1C, LIPID #### [address] [address] Lymphocyte, Absolute 3.6 10 3/mcL Normal 0.9-4.3 [facility] ([place]) Comment on above: Performed By: #### T ROPHS, DIMER, TSHR, A1C, LIPID #### [address] [address] Lymphocytes/100 WBC (Bld) 19.6 % Low 20.0-40.0 [facility] ([place]) Comment on above: Performed By: #### T ROPHS, DIMER, TSHR, A1C, LIPID #### [address] [address] Monocyte, Absolute 1.3 10 3/mcL Normal 0.1-1.4 [facility] ([place]) Comment on above: Performed By: #### T ROPHS, DIMER, TSHR, A1C, LIPID #### [address] [address] Monocytes/100 WBC (Bld) 7.2 % Normal 2.0-13.0 [facility] ([place]) Comment on above: Performed By: #### T ROPHS, DIMER, TSHR, A1C, LIPID #### [address] [address] Neutrophils/100 WBC (Bld) 72.4 % Normal 50.0-75.0 [facility] ([place]) Comment on above: Performed By: #### T ROPHS, DIMER, TSHR, A1C, LIPID #### [address] [address] .GFRon 11-14-2023 GFR >60 Normal [facility] ([place]) Comment on above: Result Comment: GFR Population mean for , Non- Americans Ages 20-29 = 116 mL/min/1.73 sq.m. Ages 30-39 = 107 mL/min/1.73 sq.m. Ages 40-49 = 99 mL/min/1.73 sq.m. Ages 50-59 = 93 mL/min/1.73 sq.m. Ages 60-69 = 85 mL/min/1.73 sq.m. Ages 70+ = 75 mL/min/1.73 sq.m. Chronic Kidney Disease: Less than 60 mL/min/1.73 square meters End Stage Renal Disease: Less than 15 mL/min/1.73 square meters Performed By: #### T CHICO, DIMER, TSHR, A1C, LIPID #### [address] [address] GFR Non- >60 Normal [facility] ([place]) Comment on above: Result Comment: GFR Population mean for , Non- Americans Ages 20-29 = 116 mL/min/1.73 sq.m. Ages 30-39 = 107 mL/min/1.73 sq.m. Ages 40-49 = 99 mL/min/1.73 sq.m. Ages 50-59 = 93 mL/min/1.73 sq.m. Ages 60-69 = 85 mL/min/1.73 sq.m. Ages 70+ = 75 mL/min/1.73 sq.m. Chronic Kidney Disease: Less than 60 mL/min/1.73 square meters End Stage Renal Disease: Less than 15 mL/min/1.73 square meters Performed By: #### T CHICO, DIMER, TSHR, A1C, LIPID #### [address] [address] .MDWon 11-14-2023 Monocyte Distribution Width 17.46 Normal 0.00-20.00 [facility] ([place]) Comment on above: Result Comment: For ED adult patients suspected of sepsis, MDW<=20.0 does not rule out sepsis or risk of sepsis Performed By: #### T CHICO, DIMER, TSHR, A1C, LIPID #### [address] [address] .NEUABSon 11-14-2023 Neutrophil, Absolute 13.3 10 3/mcL High 2.3-8.1 [facility] ([place] Comment on above: Performed By: #### T CHICO, DIMER, TSHR, A1C, LIPID #### [address] [address] CBCon 11-14-2023 Erythrocyte distribution width (RBC) [Ratio] 14.3 % Normal 11.5-15.5 [facility] ([place]) Comment on above: Performed By: #### T ROPHS, DIMER, TSHR, A1C, LIPID #### [place] [address] Hematocrit (Bld) [Volume fraction] 42.3 % Normal 34.0-46.0 [facility] ([place] Comment on above: Performed By: #### T ROPHS, DIMER, TSHR, A1C, LIPID #### [place] [address] Hgb 14.2 G/dL Normal 12.0-16.0 [facility] ([place] Comment on above: Performed By: #### T ROPHS, DIMER, TSHR, A1C, LIPID #### [place] [address] MCH (RBC) [Entitic mass] 30.1 pg Normal 27.0-33.0 [facility] ([place] Comment on above: Performed By: #### T ROPHS, DIMER, TSHR, A1C, LIPID #### [place] [address] MCHC 33.7 G/dL Normal 32.0-36.0 [facility] ([place] Comment on above: Performed By: #### T ROPHS, DIMER, TSHR, A1C, LIPID #### [place] [address] MCV (RBC) [Entitic vol] 89.3 fL Normal 80.0-99.0 [facility] ([place] Comment on above: Performed By: #### T ROPHS, DIMER, TSHR, A1C, LIPID #### [place] [address] Platelet 431 10 3/mcL Normal 150-450 [facility] ([place] Comment on above: Performed By: #### T ROPHS, DIMER, TSHR, A1C, LIPID #### [place] [address] Platelet mean volume (Bld) [Entitic vol] 8.7 fL Normal 6.6-10.5 [facility] ([place] Comment on above: Performed By: #### T ROPHS, DIMER, TSHR, A1C, LIPID #### [address] [address] RBC 4.73 10 6/mcL Normal 4.10-5.30 [facility] ([place] Comment on above: Performed By: #### T ROPHS, DIMER, TSHR, A1C, LIPID #### [address] [address] WBC 18.4 10 3/mcL High 4.5-10.8 [facility] ([place] Comment on above: Performed By: #### T ROPHS, DIMER, TSHR, A1C, LIPID #### [address] [address] CMPon 11-14-2023 Albumin Level 3.8 G/dL Normal 3.2-4.8 [facility] ([place] Comment on above: Performed By: #### T ROPHS, DIMER, TSHR, A1C, LIPID #### [address] [address] Albumin/Globulin [Mass ratio] 1.2 {ratio} Normal 0.9-1.6 [facility] ([place] Comment on above: Performed By: #### T ROPHS, DIMER, TSHR, A1C, LIPID #### [address] [address] ALP [Catalytic activity/Vol] 107 U/L Normal 38-126 [facility] ([place] Comment on above: Performed By: #### T ROPHS, DIMER, TSHR, A1C, LIPID #### [address] [address] ALT [Catalytic activity/Vol] 13 U/L Normal 10-49 [facility] ([place] Comment on above: Performed By: #### T ROPHS, DIMER, TSHR, A1C, LIPID #### [address] [address] AST [Catalytic activity/Vol] 17 U/L Normal 8-34 [facility] ([place] Comment on above: Performed By: #### T ROPHS, DIMER, TSHR, A1C, LIPID #### [place] [id number] Bili Total 0.40 mg/dL Normal 0.20-1.20 [facility] ([place] Comment on above: Result Comment: Use of this assay is not recommended for patients undergoing treatment with eltrombopag due to the potential for falsely elevated results. Performed By: #### T ROPHS, DIMER, TSHR, A1C, LIPID #### [address] [address] BUN/Creatinine Ratio 17.5 ratio Normal 10.0-22.0 [facility] ([place] Comment on above: Performed By: #### T ROPHS, DIMER, TSHR, A1C, LIPID #### [address] [address] Calcium [Mass/Vol] 9.6 mg/dL Normal 8.7-10.4 [facility] ([place]) Comment on above: Performed By: #### T ROPHS, DIMER, TSHR, A1C, LIPID #### [address] [address] Chloride [Moles/Vol] 104 mmol/L Normal 98-110 [facility] ([place] Comment on above: Performed By: #### T ROPHS, DIMER, TSHR, A1C, LIPID #### [address] [address] CO2 [Moles/Vol] 30 mmol/L Normal 22-32 [facility] ([place] Comment on above: Performed By: #### T ROPHS, DIMER, TSHR, A1C, LIPID #### [address] [address] Creatinine [Mass/Vol] 0.97 mg/dL Normal 0.50-1.20 [facility] ([place] Comment on above: Performed By: #### T ROPHS, DIMER, TSHR, A1C, LIPID #### [address] [address] Electrolyte Balance 7.0 mEq/L Normal 4.0-15.0 [facility] ([place]) Comment on above: Performed By: #### T ROPHS, DIMER, TSHR, A1C, LIPID #### [address] [address] Globulin 3.2 G/dL Normal 1.5-3.8 [facility] ([place] Comment on above: Performed By: #### T ROPHS, DIMER, TSHR, A1C, LIPID #### [address] [address] Glucose [Mass/Vol] 198 mg/dL High 70-110 [facility] ([place]) Comment on above: Performed By: #### T ROPHS, DIMER, TSHR, A1C, LIPID #### [address] [address] Potassium [Moles/Vol] 4.1 mmol/L Normal 3.5-5.0 [facility] ([place] Comment on above: Performed By: #### T ROPHS, DIMER, TSHR, A1C, LIPID #### [address] [address] Sodium [Moles/Vol] 141 mmol/L Normal 136-145 [facility] ([place]) Comment on above: Performed By: #### T ROPHS, DIMER, TSHR, A1C, LIPID #### [place] [id number] Total Protein 7.0 G/dL Normal 5.7-8.2 [facility] ([place] Comment on above: Result Comment: No te - New Reference Range in effect 19 Performed By: #### T ROPHS, DIMER, TSHR, A1C, LIPID #### [place] [phone] Urea nitrogen [Mass/Vol] 17.0 mg/dL Normal 8.0-22.0 [facility] ([place] Comment on above: Performed By: #### T ROPHS, DIMER, TSHR, A1C, LIPID #### [address] [address] [address] ABD/PELVIS W/ IV CONTRAST ONLYon 11-14-2023 CT ABD/PELVIS W/ IV CONTRAST ONLY ORIGINAL EXAMINATION: CT OF THE ABDOMEN AND PELVIS WITH CONTRAST11/14/2023 9:32 pm TECHNIQUE: CT of the abdomen and pelvis was performed with the administration of intravenous contrast. Multiplanar reformatted images are provided for review. Automated exposure control, iterative reconstruction, and/or weight based adjustment of the mA/kV was utilized to reduce the radiation dose to as low as reasonably achievable. COMPARISON: CT abdomen pelvis 04/18/2022 HISTORY: ORDERING SYSTEM PROVIDED HISTORY: Reason for Exam: LUQ pain since last night, nausea, diarrhea, hx gaby pancreas tail and spleen removed hyster hernia repair x 4 pain FINDINGS: No acute osseous abnormality. Mild degenerative changes of the spine. Small sclerotic lesions in the right femoral neck and inferior pubic ramus appears stable from prior and may represent bone islands. Bilateral dependent atelectasis. No pleural or pericardial effusion. The heart is normal in size. Diffusely hypodense liver, likely representing hepatic steatosis. Multiple scattered hypodense lesions in the liver measure up to 1.8 cm in the inferior right hepatic lobe and do not appear significantly changed from prior. Minimal residual splenic tissue is visualized. Postsurgical changes of the pancreas with no acute abnormality of the residual pancreatic tissue. Cholecystectomy clips. The kidneys enhance symmetrically. Subcentimeter hypodense lesions are scattered throughout the kidneys bilaterally, too small to characterize, however may represent small renal cysts. These appear grossly similar to prior. No evidence of hydronephrosis or urolithiasis. The bladder is unremarkable. No adnexal masses. Pelvic phleboliths. The stomach is under distended, limiting evaluation. The small bowel is unremarkable. Minimal scattered colonic diverticulosis with no evidence of diverticulitis. Scattered areas of intramural fat in the colonic wall may represent sequela of prior insult. The appendix is not definitively identified, however no pericecal inflammation is seen. Nonaneurysmal aorta. No pathologically enlarged lymph nodes are identified. No free intraperitoneal air or fluid. Postsurgical changes of the anterior abdominal wall. Small fat containing mid abdomen hernia is visualized. Additional multiple small fat containing ventral wall hernias. IMPRESSION: No acute inflammatory abnormality in the abdomen or pelvis. Additional chronic and incidental findings as above. I have personally reviewed the images of this examination and agree with the resident's findings and interpretation. Interpreted by: Bao Tierney Preliminary Report By: Marie Giron Electronically signed By Bao Tierney Dictated Date: 11/14/2023 9:34:09 PM Prelim Date: 11/14/2023 9:48:06 PM Sign Date: 11/14/2023 9:52:35 PM Ordering Provider: TOMMY BONILLA [facility] ([place]) LABORATORYOrdered By: SYSTEM SYSTEM on 11-14-2023 Albumin BCP dye [Mass/Vol] 3.8 G/dL Normal 3.2 - 4.8 G/dL ADM SS Albumin/Globulin [Mass ratio] 1.2 {ratio} Normal 0.9 - 1.6 ratio ADM SS ALP [Catalytic activity/Vol] 107 U/L Normal 38 - 126 U/L ADM SS ALT No additional P-5'-P [Catalytic activity/Vol] 13 U/L Normal 10 - 49 U/L ADM SS AST [Catalytic activity/Vol] 17 U/L Normal 8 - 34 U/L ADM SS Basophils (Bld) [#/Vol] 0.1 103/mcL Normal 0.0 - 0.3 10^3/mcL Workflow SS Basophils/100 WBC (Bld) 0.6 % Normal 0.0 - 2.5 % Workflow SS Bilirubin [Mass/Vol] 0.40 mg/dL Normal 0.20 - 1.20 mg/dL ADM SS Comment on above: Interpretive Data: U se of this assay is not recommended for patients undergoing treatment with eltrombopag due to the potential for falsely elevated results. Calcium [Mass/Vol] 9.6 mg/dL Normal 8.7 - 10. 4 mg/dL ADM SS Chloride [Moles/Vol] 104 mmol/L Normal 98 - 110 mEq/L ADM SS CO2 [Moles/Vol] 30 mmol/L Normal 22 - 32 mEq/L ADM SS Creatinine [Mass/Vol] 0.97 mg/dL Normal 0.50 - 1.20 mg/dL ADM SS Electrolyte Balance 7.0 mEq/L Normal 4.0 - 15 .0 mEq/L ADM SS Eosinophils (Bld) [#/Vol] 0.0 103/mcL Normal 0.0 - 0.7 10^3/mcL Workflow SS Eosinophils/100 WBC (Bld) 0.2 % Normal 0.0 - 6.0 % Workflow SS Erythrocyte distribution width (RBC) [Ratio] 14.3 % Normal 11.5 - 15.5 % Workflow SS GFR/1.73 sq M.predicted among blacks MDRD (S/P/Bld) [Vol rate/Area] ml/min/1.73sqm Invalid Interpretation Code AH ADM SS Comment on above: Interpretive Data: GFR Population mean for , Non- Americans Ages 20-29 = 116 mL/min/1.73 sq.m. Ages 30-39 = 107 mL/min/1.73 sq.m. Ages 40-49 = 99 mL/min/1.73 sq.m. Ages 50-59 = 93 mL/min/1.73 sq.m. Ages 60-69 = 85 mL/min/1.73 sq.m. Ages 70+ = 75 mL/min/1.73 sq.m. Chronic Kidney Disease: Less than 60 mL/min/1.73 square meters End Stage Renal Disease: Less than 15 mL/min/1.73 square meters GFR/1.73 sq M.predicted among non-blacks MDRD (S/P/Bld) [Vol rate/Area] ml/min/1.73sqm Invalid Interpretation Code [facility] Comment on above: Interpretive Data: GFR Population mean for , Non- Americans Ages 20-29 = 116 mL/min/1.73 sq.m. Ages 30-39 = 107 mL/min/1.73 sq.m. Ages 40-49 = 99 mL/min/1.73 sq.m. Ages 50-59 = 93 mL/min/1.73 sq.m. Ages 60-69 = 85 mL/min/1.73 sq.m. Ages 70+ = 75 mL/min/1.73 sq.m. Chronic Kidney Disease: Less than 60 mL/min/1.73 square meters End Stage Renal Disease: Less than 15 mL/min/1.73 square meters Globulin 3.2 G/dL Normal 1.5 - 3.8 G/dL ADM Glucose [Mass/Vol] 198 mg/dL High 70 - 110 mg/dL ADM Hematocrit (Bld) [Volume fraction] 42.3 % Normal 34.0 - 46.0 % Workflow SS Hemoglobin (Bld) [Mass/Vol] 14.2 G/dL Normal 12.0 - 16.0 G/dL Workflow Lipase [Catalytic activity/Vol] 37 U/L Normal 12 - 53 U/L [facility] Comment on above: Interpretive Data: * *Note - New Reference Range in effect 19 Lymphocytes (Bld) [#/Vol] 3.6 103/mcL Normal 0.9 - 4.3 10^3/mcL AH Workflow SS Lymphocytes/100 WBC (Bld) 19.6 % Low 20.0 - 40.0 % AH Workflow SS MCH (RBC) [Entitic mass] 30.1 pg Normal 27.0 - 33.0 pg AH Workflow SS MCHC 33.7 G/dL Normal 32.0 - 36.0 G/dL AH Workflow SS MCV (RBC) [Entitic vol] 89.3 fL Normal 80.0 - 99.0 fL AH Workflow SS Monocyte distribution width Auto (Bld) [Entitic vol] 17.46 1 Normal 0.00 - 20.00 AH Workflow SS Comment on above: Result Comment: For ED adult patients suspected of sepsis, MDW<=20.0 does not rule out sepsis or risk of sepsis Monocytes (Bld) [#/Vol] 1.3 103/mcL Normal 0.1 - 1.4 10^3/mcL AH Workflow SS Monocytes/100 WBC (Bld) 7.2 % Normal 2.0 - 13.0 % AH Workflow SS Neutrophils (Bld) [#/Vol] 13.3 103/mcL High 2.3 - 8.1 10^3/mcL AH Workflow SS Neutrophils/100 WBC (Bld) 72.4 % Normal 50.0 - 75.0 % AH Workflow SS Platelet mean volume (Bld) [Entitic vol] 8.7 fL Normal 6.6 - 10.5 fL AH Workflow SS Platelets (Bld) [#/Vol] 431 103/mcL Normal 150 - 450 10^3/mcL AH Workflow SS Potassium [Moles/Vol] 4.1 mmol/L Normal 3.5 - 5.0 mEq/L AH ADM SS Protein [Mass/Vol] 7.0 G/dL Normal 5.7 - 8.2 G/dL AH ADM SS Comment on above: Interpretive Data: * *Note - New Reference Range in effect 19 RBC (Bld) [#/Vol] 4.73 106/mcL Normal 4.10 - 5.3 0 10^6/mcL AH Workflow SS Sodium [Moles/Vol] 141 mmol/L Normal 136 - 145 mEq/L AH ADM SS Urea nitrogen [Mass/Vol] 17.0 mg/dL Normal 8.0 - 22.0 mg/dL AH ADM SS Urea nitrogen/Creatinine [Mass ratio] 17.5 ratio Normal 10.0 - 22.0 ratio AH ADM SS WBC (Bld) [#/Vol] 18.4 103/mcL High 4.5 - 10.8 10^3/mcL AH Workflow SS LABORATORYOrdered By: Rosana Malloy on 11-14-2023 Appearance (U) Clear (11/14/23 7:18 PM) Normal Clear AH Auto Urine SS Bilirubin Ql (U) Negative (11/14/23 7:18 PM) Normal Neg-Trace AH Auto Urine SS Color (U) Yellow (11/14/23 7:18 PM) Normal AH Auto Urine SS Glucose Test strip (U) [Mass/Vol] Negative Normal Negative AH Auto Urine SS Hemoglobin Auto test strip (U) [Mass/Vol] Negative (11/14/23 7:18 PM) Normal Neg-Trace AH Auto Urine SS Ketones Ql (U) Negative Normal Neg-Trace AH Auto Urine SS UA Leuk Est Negative (11/14/23 7:18 PM) Normal Negative AH Auto Urine SS UA Nitrite Negative (11/14/23 7:18 PM) Normal Negative AH Auto Urine SS UA pH 5.0 (11/14/23 7:18 PM) Normal 5.0 - 8.0 AH Auto Urine SS UA Protein Trace mg/dL Normal Negative AH Auto Urine SS UA Spec Grav 1.020 (11/14/23 7:18 PM) Normal 1.006-1.029 AH Auto Urine SS UA Specimen Type Clean Catch (11/14/23 7:18 PM) Normal AH Auto Urine SS UA Urobilinogen 0.2 E.U./dL Normal 0.2-1.0 AH Auto Urine SS LIPon 11-14-2023 Lipase Level 37 U/L Normal 12-53 [facility] ([place]) Comment on above: Result Comment: No te - New Reference Range in effect 19 Performed By: #### T ROPHS, DIMER, TSHR, A1C, LIPID #### [address] [address] UAon 11-14-2023 Color (U) Yellow Normal [facility] ([place]) Comment on above: Performed By: #### U A #### [address] [address] Glucose (U) [Mass/Vol] Negative Normal Negative [facility] ([place]) Comment on above: Performed By: #### U A #### [place] [address] Ketones Ql (U) Negative Normal Neg-Trace [facility] ([place] Comment on above: Performed By: #### U A #### [place] [address] UA Appear Clear Normal Clear [facility] ([place] Comment on above: Performed By: #### U A #### [place] [address] UA Blood Negative Normal Neg-Trace [facility] ([place] Comment on above: Performed By: #### U A #### [place] [address] UA Leuk Est Negative Normal Negative [facility] ([place] Comment on above: Performed By: #### U A #### [place] [address] UA Nitrite Negative Normal Negative [facility] ([place] Comment on above: Performed By: #### U A #### [place] [address] UA pH 5.0 Normal 5.0 - 8.0 [facility] ([place] Comment on above: Performed By: #### U A #### [place] [address] UA Protein Trace Normal Negative [facility] ([place] Comment on above: Performed By: #### U A #### [place] [address] UA Spec Grav 1.020 Normal 1.006-1.029 [facility] ([place] Comment on above: Performed By: #### U A #### [place] [address] UA Specimen Type Clean Catch Normal [facility] ([place] Comment on above: Performed By: #### U A #### [place] [address] UA Urobilinogen 0.2 E.U./dL Normal 0.2-1.0 [facility] ([place]) Comment on above: Performed By: #### U A #### [address] [address] Urobilinogen (U) [Mass/Vol] Negative Normal Neg-Trace [facility] ([place] Comment on above: Performed By: #### U A #### [address] [address] C reactive proteinon 024 CRP [Mass/Vol] 1.35 mg/dL High <1.00 [facility] Comment on above: Performed By: #### 1 988-5 #### GRACIELA Lang ([id number]) [facility] ([facility]) [address] [place] [address] 18288 CBC W Auto Differential pane l (Bld)on 11-01-2023 Basophils (Bld) [#/Vol] 0.18 x10*3/uL High 0.00-0.10 [facility] Comment on above: Performed By: #### 5 7021-8 #### GRACIELA Lang ([id number]) [facility] ([facility]) [address] [place] [address] 10201 Basophils/100 WBC (Bld) 1.5 % Normal 0.0-2.0 [facility] Comment on above: Performed By: #### 5 7021-8 #### GRACIELA Lang ([id number]) [facility] ([facility]) [address] [place] [address] 54882 Eosinophils (Bld) [#/Vol] 0.79 x10*3/uL High 0.00-0.70 [facility] Comment on above: Performed By: #### 5 7021-8 #### GRACIELA Lang ([id number]) [facility] ([facility]) [address] [place] [address] 20919 Eosinophils/100 WBC (Bld) 6.4 % Normal 0.0-6.0 [facility] Comment on above: Performed By: #### 5 7021-8 #### GRACIELA Lang ([id number]) [facility] ([facility]) [address] [place] [address] 85311 Erythrocyte distribution width (RBC) [Ratio] 13.8 % Normal 11.5-14.5 [facility] Comment on above: Performed By: #### 5 7021-8 #### GRACIELA Lang ([id number]) [facility] ([facility]) [address] [place] [address] 02478 Hematocrit (Bld) [Volume fraction] 43.6 % Normal 36.0-46.0 [facility] Comment on above: Performed By: #### 5 7021-8 #### GRACIELA Lang ([id number]) [facility] ([facility]) [address] [place] [address] 99319 Hemoglobin (Bld) [Mass/Vol] 14.1 g/dL Normal 12.0-16.0 [facility] Comment on above: Performed By: #### 5 7021-8 #### GRACIELA Lang ([id number]) [facility] ([facility]) [address] [place] [address] 42978 Immature granulocytes (Bld) [#/Vol] 0.09 x10*3/uL Normal 0.00-0.70 [facility] Comment on above: Performed By: #### 5 7021-8 #### GRACIELA Lang ([id number]) [facility] ([facility]) [address] [place] [address] 47367 Immature granulocytes/100 WBC (Bld) 0.7 % Normal 0.0-0.9 [facility] Comment on above: Result Comment: Jahaira ture Granulocyte Count (IG) includes promyelocytes, myelocytes and metamyelocytes but does not include bands. Percent differential counts (%) should be interpreted in the context of the absolute cell counts (cells/UL). Performed By: #### 5 7021-8 #### GRACIELA Lang ([id number]) [facility] ([facility]) [address] [place] [address] 89180 Lymphocytes (Bld) [#/Vol] 2.50 x10*3/uL Normal 1.20-4.80 [facility] Comment on above: Performed By: #### 5 7021-8 #### GRACIELA Lang ([id number]) [facility] ([facility]) [address] [place] [address] 70524 Lymphocytes/100 WBC (Bld) 20.3 % Normal 13.0-44.0 [facility] Comment on above: Performed By: #### 5 7021-8 #### GRACIELA Lang ([id number]) [facility] ([facility]) [address] [place] [address] 84257 MCH (RBC) [Entitic mass] 29.3 pg Normal 26.0-34.0 [facility] Comment on above: Performed By: #### 5 7021-8 #### GRACIELA Lang ([id number]) [facility] ([facility]) [address] [place] [address] 30111 MCHC (RBC) [Mass/Vol] 32.3 g/dL Normal 32.0-36.0 [facility] Comment on above: Performed By: #### 5 7021-8 #### GRACIELA Lang ([id number]) [facility] ([facility]) [address] [place] [address] 41467 MCV (RBC) [Entitic vol] 91 fL Normal 80-100 [facility] Comment on above: Performed By: #### 5 7021-8 #### GRACIELA Lang ([id number]) [facility] ([facility]) [address] [place] [address] 30454 Monocytes (Bld) [#/Vol] 1.18 x10*3/uL High 0.10-1.00 [facility] Comment on above: Performed By: #### 5 7021-8 #### GRACIELA Lang ([id number]) [facility] ([facility]) [address] [place] [address] 18010 Monocytes/100 WBC (Bld) 9.6 % Normal 2.0-10.0 [facility] Comment on above: Performed By: #### 5 7021-8 #### GRACIELA Lang ([id number]) [facility] ([facility]) [address] [place] [address] Neutrophils (Bld) [#/Vol] 7.58 x10*3/uL Normal 1.20-7.70 [facility] Comment on above: Result Comment: Perc ent differential counts (%) should be interpreted in the context of the absolute cell counts (cells/uL). Performed By: #### 5 7021-8 #### GRACIELA Lang ([id number]) [facility] ([facility]) [address] [place] [address] Neutrophils/100 WBC (Bld) 61.5 % Normal 40.0-80.0 [facility] Comment on above: Performed By: #### 5 7021-8 #### GRACIELA Lang ([id number]) [facility] ([facility]) [address] [place] [address] Nucleated RBC/100 WBC (Bld) [Ratio] 0.0 /100 WBCs Normal 0.0-0.0 [facility] Comment on above: Performed By: #### 5 7021-8 #### GRACIELA Lang ([id number]) [facility] ([facility]) [address] [place] [address] Platelets (Bld) [#/Vol] 489 x10*3/uL High 150-450 [facility] Comment on above: Performed By: #### 5 7021-8 #### GRACIELA Lang ([id number]) [facility] ([facility]) [address] [place] [address] RBC (Bld) [#/Vol] 4.81 x10*6/uL Normal 4.00-5.20 [facility] Comment on above: Performed By: #### 5 7021-8 #### GRACIELA Lang ([id number]) [facility] ([facility]) [address] [place] [address] WBC (Bld) [#/Vol] 12.3 x10*3/uL High 4.4-11.3 [facility] Comment on above: Performed By: #### 5 7021-8 #### GRACIELA Lagn ([id number]) [facility] ([facility]) [id number] [place] [address] 40245 Complement C3on 11-01-2023 Complement C3 [Mass/Vol] 159 mg/dL Normal 87-200 [facility] Comment on above: Performed By: #### 4 485-9 #### GRACIELA Lang ([id number]) [facility] ([facility]) [id number] [place] [address] 27805 Complement C4on 11-01-2023 Complement C4 [Mass/Vol] 75 mg/dL High 10-50 [facility] Comment on above: Performed By: #### 4 498-2 #### GRACIELA Lang ([id number]) [facility] ([facility]) [id number] [place] [address] 64632 Comprehensive metabolic 2000 panelon 11-01-2023 Albumin BCP dye [Mass/Vol] 4.3 g/dL Normal 3.4-5.0 [facility] Comment on above: Performed By: #### 2 4323-8 #### GRACIELA Lang ([id number]) [facility] ([facility]) [id number] [place] [address] 42469 ALP [Catalytic activity/Vol] 126 U/L High 33-110 [facility] Comment on above: Performed By: #### 2 4323-8 #### GRACIELA Lang ([id number]) [facility] ([facility]) [address] [place] [address] 42066 ALT With P-5'-P [Catalytic activity/Vol] 14 U/L Normal 7-45 [facility] Comment on above: Result Comment: Loretta ents treated with Sulfasalazine may generate falsely decreased results for ALT. Performed By: #### 2 4323-8 #### GRACIELA Lang ([id number]) [facility] ([facility]) [address] [place] [address] Anion gap [Moles/Vol] 15 mmol/L Normal 10-20 [facility] Comment on above: Performed By: #### 2 4323-8 #### GRACIELA Lang ([id number]) [facility] ([facility]) [address] [place] [address] AST With P-5'-P [Catalytic activity/Vol] 17 U/L Normal 9-39 [facility] Comment on above: Performed By: #### 2 4323-8 #### GRACIELA Lang ([id number]) [facility] ([facility]) [address] [place] [address] 90863 Bilirubin [Mass/Vol] 0.5 mg/dL Normal 0.0-1.2 [facility] Comment on above: Performed By: #### 2 4323-8 #### GRACIELA Lang ([id number]) [facility] ([facility]) [address] [place] [address] 56676 Calcium [Mass/Vol] 9.9 mg/dL Normal 8.6-10.6 [facility] Comment on above: Performed By: #### 2 4323-8 #### GRACIELA Lang ([id number]) [facility] ([facility]) [address] [place] [address] Chloride [Moles/Vol] 102 mmol/L Normal 98-107 [facility] Comment on above: Performed By: #### 2 4323-8 #### GRACIELA Lang ([id number]) [facility] ([facility]) [address] [place] [address] 98985 CO2 [Moles/Vol] 28 mmol/L Normal 21-32 [facility] Comment on above: Performed By: #### 2 4323-8 #### GRACIELA Lnag ([id number]) [facility] ([facility]) [address] [place] [address] 29116 Creatinine [Mass/Vol] 1.00 mg/dL Normal 0.50-1.05 [facility] Comment on above: Performed By: #### 2 4323-8 #### GRACIELA Lang ([id number]) [facility] ([facility]) [address] [place] [address] Glomerular filtration rate/1.73 sq M.predicted 68 mL/min/1.73m*2 Normal >60 [facility] Comment on above: Result Comment: Calc ulations of estimated GFR are performed using the 2020 CKD-EPI Study Refit equation without the race variable for the IDMS-Traceable creatinine methods. https://jasn.asnjournals.org/content//ASN.35605131 88 Performed By: #### 2 4323-8 #### GRACIELA Lang ([id number]) [facility] ([facility]) [id number] [place] [address] 90829 Glucose [Mass/Vol] 145 mg/dL High 74-99 [facility] Comment on above: Performed By: #### 2 4323-8 #### GRACIELA RASCON L ([id number]) [facility] ([facility]) [id number] [place] [address] 88318 Potassium [Moles/Vol] 5.1 mmol/L Normal 3.5-5.3 [facility] Comment on above: Performed By: #### 2 4323-8 #### GRACIELA TAYLORMOTZER L ([id number]) [facility] ([facility]) [address] [place] [address] 09781 Protein [Mass/Vol] 7.0 g/dL Normal 6.4-8.2 [facility] Comment on above: Performed By: #### 2 4323-8 #### GRACIELA TAYLORMOTZNAVARRO L ([id number]) [facility] ([facility]) [address] [place] [address] 41315 Sodium [Moles/Vol] 140 mmol/L Normal 136-145 [facility] Comment on above: Performed By: #### 2 4323-8 #### GRACIELA TAYLORMOTZER L ([id number]) [facility] ([facility]) [id number] [place] [address] 35575 Urea nitrogen [Mass/Vol] 15 mg/dL Normal 6-23 [facility] Comment on above: Performed By: #### 2 4323-8 #### GRACIELA Lang ([id number]) [facility] ([facility]) [address] [place] [address] 24600 DNA double strand Abon 10-31 DNA double strand Ab Qn (S) [IU]/mL Normal <5.0 [facility] Comment on above: Result Comment: NEGA TIVE: <= 4 IU/ML EQUIVOCAL: 5- 9 IU/ML POSITIVE: >=10 IU/ML Performed By: #### 5 130-0 #### GRACIELA Lang ([id number]) [facility] ([facility]) [address] [place] [address] 82797 ESR Westergren method (Bld) [Velocity]on 11-01-2023 ESR (Bld) [Velocity] 34 mm/h High 0-30 [facility] Comment on above: Performed By: #### 4 537-7 #### GRACIELA Lang ([id number]) [facility] ([facility]) [address] [place], [place] [id number] HbA1c (Bld) [Mass fraction]o n 11-01-2023 Average glucose Estimated from glycated hemoglobin (Bld) [Mass/Vol] 160 mg/dL Normal Not Established [facility] Comment on above: Order Comment: Diagn osis of Diabetes-Adults Non-Diabetic: < or = 5.6% Increased risk for developing diabetes: 5.7-6.4% Diagnostic of diabetes: > or = 6.5% Performed By: #### 4 548-4 #### GRACIELA Lang ([id number]) [facility] ([facility]) [address] [place] [address] 87213 Hemoglobin A1c/Hemoglobin.to flavio 11-01-2023 HbA1c (Bld) [Mass fraction] 7.2 % High see below [facility] Comment on above: Order Comment: Diagn osis of Diabetes-Adults Non-Diabetic: < or = 5.6% Increased risk for developing diabetes: 5.7-6.4% Diagnostic of diabetes: > or = 6.5% Performed By: #### 4 548-4 #### GRACIELA Lang ([id number]) [facility] ([facility]) [address] [place] [address] .Auto Diffon 10-02-2023 Basophil, Absolute 0.0 10 3/mcL Normal 0.0-0.3 [facility] ([place]) Comment on above: Performed By: #### T ROPHS, DIMER, TSHR, A1C, LIPID #### [address] [address] Basophils/100 WBC (Bld) 0.3 % Normal 0.0-2.5 [facility] ([place]) Comment on above: Performed By: #### T ROPHS, DIMER, TSHR, A1C, LIPID #### [address] [address] Eosinophil, Absolute 0.7 10 3/mcL Normal 0.0-0.7 [facility] ([place]) Comment on above: Performed By: #### T ROPHS, DIMER, TSHR, A1C, LIPID #### [address] [address] Eosinophils/100 WBC (Bld) 5.6 % Normal 0.0-6.0 [facility] ([place]) Comment on above: Performed By: #### T ROPHS, DIMER, TSHR, A1C, LIPID #### [address] [address] Lymphocyte, Absolute 3.7 10 3/mcL Normal 0.9-4.3 [facility] ([place]) Comment on above: Performed By: #### T ROPHS, DIMER, TSHR, A1C, LIPID #### [address] [address] Lymphocytes/100 WBC (Bld) 29.8 % Normal 20.0-40.0 [facility] ([place]) Comment on above: Performed By: #### T ROPHS, DIMER, TSHR, A1C, LIPID #### [address] [address] Monocyte, Absolute 1.6 10 3/mcL High 0.1-1.4 [facility] ([place]) Comment on above: Performed By: #### T ROPHS, DIMER, TSHR, A1C, LIPID #### [place] [id number] [place] [address]16 Monocytes/100 WBC (Bld) 12.8 % Normal 2.0-13.0 [facility] ([place]) Comment on above: Performed By: #### T ROPHS, DIMER, TSHR, A1C, LIPID #### [place] [id number] [place] [address] 65398 Neutrophils/100 WBC (Bld) 51.5 % Normal 50.0-75.0 [facility] ([place]) Comment on above: Performed By: #### T ROPHS, DIMER, TSHR, A1C, LIPID #### [address] [address] .GFRon 10-02-2023 GFR >60 Normal [facility] ([place]) Comment on above: Result Comment: GFR Population mean for , Non- Americans Ages 20-29 = 116 mL/min/1.73 sq.m. Ages 30-39 = 107 mL/min/1.73 sq.m. Ages 40-49 = 99 mL/min/1.73 sq.m. Ages 50-59 = 93 mL/min/1.73 sq.m. Ages 60-69 = 85 mL/min/1.73 sq.m. Ages 70+ = 75 mL/min/1.73 sq.m. Chronic Kidney Disease: Less than 60 mL/min/1.73 square meters End Stage Renal Disease: Less than 15 mL/min/1.73 square meters Performed By: #### T ROPHS, DIMER, TSHR, A1C, LIPID #### [address] [address] GFR Non- >60 Normal [facility] ([place]) Comment on above: Result Comment: GFR Population mean for , Non- Americans Ages 20-29 = 116 mL/min/1.73 sq.m. Ages 30-39 = 107 mL/min/1.73 sq.m. Ages 40-49 = 99 mL/min/1.73 sq.m. Ages 50-59 = 93 mL/min/1.73 sq.m. Ages 60-69 = 85 mL/min/1.73 sq.m. Ages 70+ = 75 mL/min/1.73 sq.m. Chronic Kidney Disease: Less than 60 mL/min/1.73 square meters End Stage Renal Disease: Less than 15 mL/min/1.73 square meters Performed By: #### T ROPHS, DIMER, TSHR, A1C, LIPID #### [address] [address] .NEUABSon 10-02-2023 Neutrophil, Absolute 6.4 10 3/mcL Normal 2.3-8.1 [facility] ([place]) Comment on above: Performed By: #### T ROPHS, DIMER, TSHR, A1C, LIPID #### [address] [address] BMPon 10-02-2023 BUN/Creatinine Ratio 18.1 ratio Normal 10.0-22.0 [facility] ([place]) Comment on above: Performed By: #### T ROPHS, DIMER, TSHR, A1C, LIPID #### [place] [id number] Calcium [Mass/Vol] 9.4 mg/dL Normal 8.7-10.4 [facility] ([place]) Comment on above: Performed By: #### T CHICO, DIMER, TSHR, A1C, LIPID #### [place] [address] Chloride [Moles/Vol] 105 mmol/L Normal 98-110 [facility] ([place]) Comment on above: Performed By: #### T ROPHS, DIMER, TSHR, A1C, LIPID #### [place] [id number] CO2 [Moles/Vol] 27 mmol/L Normal 22-32 [facility] ([place]) Comment on above: Performed By: #### T ROPHS, DIMER, TSHR, A1C, LIPID #### [place] [address] Creatinine [Mass/Vol] 0.83 mg/dL Normal 0.50-1.20 [facility] ([place]) Comment on above: Performed By: #### T ROPHS, DIMER, TSHR, A1C, LIPID #### [place] [address] Electrolyte Balance 8.0 mEq/L Normal 4.0-15.0 [facility] ([place]) Comment on above: Performed By: #### T ROPSTEPHEN, DIMER, TSHR, A1C, LIPID #### [place] [phone] Glucose [Mass/Vol] 132 mg/dL High 70-110 [facility] ([place]) Comment on above: Performed By: #### T ROPHS, DIMER, TSHR, A1C, LIPID #### [place] [phone] Potassium [Moles/Vol] 4.3 mmol/L Normal 3.5-5.0 [facility] ([place]) Comment on above: Performed By: #### T CHICO, DIMER, TSHR, A1C, LIPID #### [place] [phone] Sodium [Moles/Vol] 140 mmol/L Normal 136-145 [facility] ([place]) Comment on above: Performed By: #### T ROPHS, DIMER, TSHR, A1C, LIPID #### [place] [address] Urea nitrogen [Mass/Vol] 15.0 mg/dL Normal 8.0-22.0 [facility] ([place]) Comment on above: Performed By: #### T ROPHS, DIMER, TSHR, A1C, LIPID #### [address] [address] CBCon 10-02-2023 Erythrocyte distribution width (RBC) [Ratio] 13.3 % Normal 11.5-15.5 [facility] ([place]) Comment on above: Performed By: #### T ROPHS, DIMER, TSHR, A1C, LIPID #### [place] [phone] Hematocrit (Bld) [Volume fraction] 40.4 % Normal 34.0-46.0 [facility] ([place]) Comment on above: Performed By: #### T ROPHS, DIMER, TSHR, A1C, LIPID #### [place] [phone] Hgb 13.7 G/dL Normal 12.0-16.0 [facility] ([place]) Comment on above: Performed By: #### T ROPHS, DIMER, TSHR, A1C, LIPID #### [place] [address] MCH (RBC) [Entitic mass] 30.5 pg Normal 27.0-33.0 [facility] ([place]) Comment on above: Performed By: #### T ROPHS, DIMER, TSHR, A1C, LIPID #### [place] [address] MCHC 33.9 G/dL Normal 32.0-36.0 [facility] ([place]) Comment on above: Performed By: #### T ROPHS, DIMER, TSHR, A1C, LIPID #### [place] [address] MCV (RBC) [Entitic vol] 90.0 fL Normal 80.0-99.0 [facility] ([place]) Comment on above: Performed By: #### T ROPSTEPHEN, DIMER, TSHR, A1C, LIPID #### [place] [address] Platelet 404 10 3/mcL Normal 150-450 [facility] ([place]) Comment on above: Performed By: #### T ROPSTEPHEN, DIMER, TSHR, A1C, LIPID #### [place] [address] Platelet mean volume (Bld) [Entitic vol] 8.2 fL Normal 6.6-10.5 [facility] ([place]) Comment on above: Performed By: #### T ROPHS, DIMER, TSHR, A1C, LIPID #### [place] [address] RBC 4.49 10 6/mcL Normal 4.10-5.30 [facility] ([place]) Comment on above: Performed By: #### T ROPHS, DIMER, TSHR, A1C, LIPID #### [place] [address] WBC 12.4 10 3/mcL High 4.5-10.8 [facility] ([place]) Comment on above: Performed By: #### T ROPHS, DIMER, TSHR, A1C, LIPID #### [place] [address] LABORATORYOrdered By: Mallika Guerrero on 10-02-2023 Blood Glucose Testing Reason Routine (10/02/23 4:29 PM) [facility] Work Phone: Glucose [Mass/Vol] 96 mg/dL Normal 70 - 110 mg/dL [facility] Work Phone: LABORATORYOrdered By: Jose Carlos Irwin on 10-02-2023 Blood Glucose Testing Reason Routine (10/02/23 12:06 PM) [facility] Work Phone: Glucose [Mass/Vol] 120 mg/dL High 70 - 110 mg/dL [facility] Work Phone: LABORATORYOrdered By: Bela Rodriguez on 10-02-2023 Blood Glucose Testing Reason Routine (10/02/23 10:15 AM) [facility] Work Phone: Glucose [Mass/Vol] 184 mg/dL High 70 - 110 mg/dL [facility] Work Phone: LABORATORYOrdered By: SYSTEM SYSTEM on 10-02-2023 Basophils (Bld) [#/Vol] 0.0 103/mcL Normal 0.0 - 0.3 10^3/mcL Workflow SS Basophils/100 WBC (Bld) 0.3 % Normal 0.0 - 2.5 % AH Workflow SS Calcium [Mass/Vol] 9.4 mg/dL Normal 8.7 - 10. 4 mg/dL AH ADM SS Chloride [Moles/Vol] 105 mmol/L Normal 98 - 110 mEq/L AH ADM SS CO2 [Moles/Vol] 27 mmol/L Normal 22 - 32 mEq/L ADM SS Creatinine [Mass/Vol] 0.83 mg/dL Normal 0.50 - 1.20 mg/dL ADM SS Electrolyte Balance 8.0 mEq/L Normal 4.0 - 15 .0 mEq/L AH ADM SS Eosinophils (Bld) [#/Vol] 0.7 103/mcL Normal 0.0 - 0.7 10^3/mcL AH Workflow SS Eosinophils/100 WBC (Bld) 5.6 % Normal 0.0 - 6.0 % Workflow Erythrocyte distribution width (RBC) [Ratio] 13.3 % Normal 11.5 - 15.5 % Workflow GFR/1.73 sq M.predicted among blacks MDRD (S/P/Bld) [Vol rate/Area] ml/min/1.73sqm Invalid Interpretation Code [facility] Comment on above: Interpretive Data: GFR Population mean for , Non- Americans Ages 20-29 = 116 mL/min/1.73 sq.m. Ages 30-39 = 107 mL/min/1.73 sq.m. Ages 40-49 = 99 mL/min/1.73 sq.m. Ages 50-59 = 93 mL/min/1.73 sq.m. Ages 60-69 = 85 mL/min/1.73 sq.m. Ages 70+ = 75 mL/min/1.73 sq.m. Chronic Kidney Disease: Less than 60 mL/min/1.73 square meters End Stage Renal Disease: Less than 15 mL/min/1.73 square meters GFR/1.73 sq M.predicted among non-blacks MDRD (S/P/Bld) [Vol rate/Area] ml/min/1.73sqm Invalid Interpretation Code [facility] Comment on above: Interpretive Data: GFR Population mean for , Non- Americans Ages 20-29 = 116 mL/min/1.73 sq.m. Ages 30-39 = 107 mL/min/1.73 sq.m. Ages 40-49 = 99 mL/min/1.73 sq.m. Ages 50-59 = 93 mL/min/1.73 sq.m. Ages 60-69 = 85 mL/min/1.73 sq.m. Ages 70+ = 75 mL/min/1.73 sq.m. Chronic Kidney Disease: Less than 60 mL/min/1.73 square meters End Stage Renal Disease: Less than 15 mL/min/1.73 square meters Glucose [Mass/Vol] 132 mg/dL High 70 - 110 mg/dL [facility] Hematocrit (Bld) [Volume fraction] 40.4 % Normal 34.0 - 46.0 % Workflow Hemoglobin (Bld) [Mass/Vol] 13.7 G/dL Normal 12.0 - 16.0 G/dL AH Workflow SS Lymphocytes (Bld) [#/Vol] 3.7 103/mcL Normal 0.9 - 4.3 10^3/mcL AH Workflow SS Lymphocytes/100 WBC (Bld) 29.8 % Normal 20.0 - 40.0 % AH Workflow SS Magnesium [Mass/Vol] 2.0 mg/dL Normal 1.6 - 2.4 mg/dL AH ADM SS MCH (RBC) [Entitic mass] 30.5 pg Normal 27.0 - 33.0 pg AH Workflow SS MCHC 33.9 G/dL Normal 32.0 - 36.0 G/dL AH Workflow SS MCV (RBC) [Entitic vol] 90.0 fL Normal 80.0 - 99.0 fL AH Workflow SS Monocytes (Bld) [#/Vol] 1.6 103/mcL High 0.1 - 1.4 10^3/mcL AH Workflow SS Monocytes/100 WBC (Bld) 12.8 % Normal 2.0 - 13.0 % AH Workflow SS Neutrophils (Bld) [#/Vol] 6.4 103/mcL Normal 2.3 - 8.1 10^3/mcL AH Workflow SS Neutrophils/100 WBC (Bld) 51.5 % Normal 50.0 - 75.0 % AH Workflow SS Platelet mean volume (Bld) [Entitic vol] 8.2 fL Normal 6.6 - 10.5 fL AH Workflow SS Platelets (Bld) [#/Vol] 404 103/mcL Normal 150 - 450 10^3/mcL AH Workflow SS Potassium [Moles/Vol] 4.3 mmol/L Normal 3.5 - 5.0 mEq/L AH ADM SS RBC (Bld) [#/Vol] 4.49 106/mcL Normal 4.10 - 5.3 0 10^6/mcL AH Workflow SS Sodium [Moles/Vol] 140 mmol/L Normal 136 - 145 mEq/L AH ADM SS Urea nitrogen [Mass/Vol] 15.0 mg/dL Normal 8.0 - 22.0 mg/dL AH ADM SS Urea nitrogen/Creatinine [Mass ratio] 18.1 ratio Normal 10.0 - 22.0 ratio AH ADM SS WBC (Bld) [#/Vol] 12.4 103/mcL High 4.5 - 10.8 10^3/mcL AH Workflow SS MGon 10-02-2023 Magnesium [Mass/Vol] 2.0 mg/dL Normal 1.6-2.4 [facility] ([place]) Comment on above: Performed By: #### T CHICO, DIMER, TSHR, A1C, LIPID #### [address] [id number] NM MYOCARDIAL SPECT STRESS/R ESTon 10-02-2023 NM MYOCARDIAL SPECT STRESS/REST ORIGINAL NM MYOCARDIAL SPECT STRESS/REST CLINICAL STATEMENT: chest pain TECHNIQUE: Lexiscan dose: 0.4 mg Radiopharmaceutical (stress): Tc-99m Sestamibi Dose:27 mCi Radiopharmaceutical (rest): Tc-99m Sestamibi Dose:8 mCi SPECT acquisition and processing Reconstruction and reorientation of SPECT images into short axis, vertical and horizontal long axis planes Quantitative LVEF assessment COMPARISON:None REPORT: Overall image quality is acceptable. There is slight patient motion during image acquisition. Low-dose CT scan shows no significant coronary artery or aortic calcification. SPECT perfusion images show an area of apical thinning, otherwise normal homogenous radiotracer uptake activity in all segments of the LV myocardium. SPECT gated images show normal thickening and regional wall motion of all segments of the LV myocardium. LVEF is >70%, LVEDV is 54mL, TID ratio is 1.07. IMPRESSION: 1. No evidence of stress induced myocardial ischemia or prior myocardial infarction 2. LVEF is >70%, normal wall motion 3. No previous studies available for comparison Interpreted By: Jolie Loaiza MD Preliminary Report By: Jackie Jamil Electronically Signed By: Jolie Loaiza MD Dictated Date: 10/02/2023 12:08:32 PM Prelim Date: 10/02/2023 12:11:41 PM Sign Date: 10/02/2023 8:31:57 PM Ordering Provider:Robert Tao [facility] ([place]) .Auto Diffon 10-01-2023 Basophil, Absolute 0.0 10 3/mcL Normal 0.0-0.3 [facility]) Comment on above: Performed By: #### T CHICO, DIMER, TSHR, A1C, LIPID #### [address] [address] Basophils/100 WBC (Bld) 0.2 % Normal 0.0-2.5 [facility] ([place]) Comment on above: Performed By: #### T ROPHS, DIMER, TSHR, A1C, LIPID #### [address] [address] Eosinophil, Absolute 0.7 10 3/mcL Normal 0.0-0.7 [facility] ([place]) Comment on above: Performed By: #### T ROPHS, DIMER, TSHR, A1C, LIPID #### [address] [address] Eosinophils/100 WBC (Bld) 6.3 % High 0.0-6.0 [facility] ([place]) Comment on above: Performed By: #### T ROPHS, DIMER, TSHR, A1C, LIPID #### [address] [address] Lymphocyte, Absolute 3.0 10 3/mcL Normal 0.9-4.3 [facility] ([place]) Comment on above: Performed By: #### T ROPHS, DIMER, TSHR, A1C, LIPID #### [address] [address] Lymphocytes/100 WBC (Bld) 28.3 % Normal 20.0-40.0 [facility] ([place]) Comment on above: Performed By: #### T ROPHS, DIMER, TSHR, A1C, LIPID #### [address] [address] Monocyte, Absolute 1.3 10 3/mcL Normal 0.1-1.4 [facility] ([place]) Comment on above: Performed By: #### T ROPHS, DIMER, TSHR, A1C, LIPID #### [address] [address] Monocytes/100 WBC (Bld) 12.0 % Normal 2.0-13.0 [facility] ([place]) Comment on above: Performed By: #### T ROPHS, DIMER, TSHR, A1C, LIPID #### [address] [address] Neutrophils/100 WBC (Bld) 53.2 % Normal 50.0-75.0 [facility] ([place]) Comment on above: Performed By: #### T CHICO, DIMER, TSHR, A1C, LIPID #### [address] [address] .GFRon 10-01-2023 GFR >60 Normal [facility] ([place]) Comment on above: Result Comment: GFR Population mean for , Non- Americans Ages 20-29 = 116 mL/min/1.73 sq.m. Ages 30-39 = 107 mL/min/1.73 sq.m. Ages 40-49 = 99 mL/min/1.73 sq.m. Ages 50-59 = 93 mL/min/1.73 sq.m. Ages 60-69 = 85 mL/min/1.73 sq.m. Ages 70+ = 75 mL/min/1.73 sq.m. Chronic Kidney Disease: Less than 60 mL/min/1.73 square meters End Stage Renal Disease: Less than 15 mL/min/1.73 square meters Performed By: #### T CHICO, DIMER, TSHR, A1C, LIPID #### [place] [address] GFR Non- >60 Normal [facility] ([place]) Comment on above: Result Comment: GFR Population mean for , Non- Americans Ages 20-29 = 116 mL/min/1.73 sq.m. Ages 30-39 = 107 mL/min/1.73 sq.m. Ages 40-49 = 99 mL/min/1.73 sq.m. Ages 50-59 = 93 mL/min/1.73 sq.m. Ages 60-69 = 85 mL/min/1.73 sq.m. Ages 70+ = 75 mL/min/1.73 sq.m. Chronic Kidney Disease: Less than 60 mL/min/1.73 square meters End Stage Renal Disease: Less than 15 mL/min/1.73 square meters Performed By: #### T CHICO, DIMER, TSHR, A1C, LIPID #### [address] [address] .NEUABSon 10-01-2023 Neutrophil, Absolute 5.6 10 3/mcL Normal 2.3-8.1 [facility] ([place]) Comment on above: Performed By: #### T RICHHS, DIMER, TSHR, A1C, LIPID #### [address] [address] A1Con 10-01-2023 HbA1c (Bld) [Mass fraction] 7.0 % High 4.0-6.0 [facility] ([place]) Comment on above: Performed By: #### T RICHHS, DIMER, TSHR, A1C, LIPID #### [address] [address] BMPon 10-01-2023 BUN/Creatinine Ratio 13.0 ratio Normal 10.0-22.0 [facility] ([place]) Comment on above: Performed By: #### T RICHHS, DIMER, TSHR, A1C, LIPID #### [address] [address] Calcium [Mass/Vol] 8.8 mg/dL Normal 8.7-10.4 [facility] ([place]) Comment on above: Performed By: #### T CHICO, DIMER, TSHR, A1C, LIPID #### [address] [address] Chloride [Moles/Vol] 109 mmol/L Normal 98-110 [facility] ([place]) Comment on above: Performed By: #### T ROPHS, DIMER, TSHR, A1C, LIPID #### [address] [address] CO2 [Moles/Vol] 24 mmol/L Normal 22-32 [facility] ([place]) Comment on above: Performed By: #### T ROPHS, DIMER, TSHR, A1C, LIPID #### [address] [address] Creatinine [Mass/Vol] 0.77 mg/dL Normal 0.50-1.20 [facility] ([place]) Comment on above: Performed By: #### T ROPHS, DIMER, TSHR, A1C, LIPID #### [address] [address] Electrolyte Balance 8.0 mEq/L Normal 4.0-15.0 [facility] ([place]) Comment on above: Performed By: #### T ROPHS, DIMER, TSHR, A1C, LIPID #### [address] [address] Glucose [Mass/Vol] 132 mg/dL High 70-110 [facility] ([place]) Comment on above: Performed By: #### T ROPHS, DIMER, TSHR, A1C, LIPID #### [address] [address] Potassium [Moles/Vol] 4.0 mmol/L Normal 3.5-5.0 [facility] ([place]) Comment on above: Performed By: #### T ROPHS, DIMER, TSHR, A1C, LIPID #### [address] [address] Sodium [Moles/Vol] 141 mmol/L Normal 136-145 [facility] ([place]) Comment on above: Performed By: #### T ROPHS, DIMER, TSHR, A1C, LIPID #### [place] [address] Urea nitrogen [Mass/Vol] 10.0 mg/dL Normal 8.0-22.0 [facility] ([place]) Comment on above: Performed By: #### T ROPHS, DIMER, TSHR, A1C, LIPID #### [address] [address] CBCon 10-01-2023 Erythrocyte distribution width (RBC) [Ratio] 13.4 % Normal 11.5-15.5 [facility] ([place]) Comment on above: Performed By: #### T ROPHS, DIMER, TSHR, A1C, LIPID #### [place] [id number] Hematocrit (Bld) [Volume fraction] 39.6 % Normal 34.0-46.0 [facility] ([place]) Comment on above: Performed By: #### T ROPHS, DIMER, TSHR, A1C, LIPID #### [place] [id number] Hgb 13.5 G/dL Normal 12.0-16.0 [facility] ([place]) Comment on above: Performed By: #### T ROPHS, DIMER, TSHR, A1C, LIPID #### [place] [address] MCH (RBC) [Entitic mass] 30.6 pg Normal 27.0-33.0 [facility] ([place]) Comment on above: Performed By: #### T ROPHS, DIMER, TSHR, A1C, LIPID #### [place] [address] MCHC 34.2 G/dL Normal 32.0-36.0 [facility] ([place]) Comment on above: Performed By: #### T ROPHS, DIMER, TSHR, A1C, LIPID #### [place] [address] MCV (RBC) [Entitic vol] 89.4 fL Normal 80.0-99.0 [facility] ([place]) Comment on above: Performed By: #### T ROPHS, DIMER, TSHR, A1C, LIPID #### [place] [address] Platelet 400 10 3/mcL Normal 150-450 [facility] ([place]) Comment on above: Performed By: #### T ROPHS, DIMER, TSHR, A1C, LIPID #### [place] [address] Platelet mean volume (Bld) [Entitic vol] 8.2 fL Normal 6.6-10.5 [facility] ([place]) Comment on above: Performed By: #### T ROPHS, DIMER, TSHR, A1C, LIPID #### [place] [address] RBC 4.43 10 6/mcL Normal 4.10-5.30 [facility] ([place]) Comment on above: Performed By: #### T ROPHS, DIMER, TSHR, A1C, LIPID #### [place] [address] WBC 10.5 10 3/mcL Normal 4.5-10.8 [facility] ([place]) Comment on above: Performed By: #### T ROPHS, DIMER, TSHR, A1C, LIPID #### [place] [address] LABORATORYOrdered By: SYSTEM SYSTEM on 10-01-2023 Basophils (Bld) [#/Vol] 0.0 103/mcL Normal 0.0 - 0.3 10^3/mcL AH Workflow SS Basophils/100 WBC (Bld) 0.2 % Normal 0.0 - 2.5 % AH Workflow SS Calcium [Mass/Vol] 8.8 mg/dL Normal 8.7 - 10. 4 mg/dL AH ADM SS Chloride [Moles/Vol] 109 mmol/L Normal 98 - 110 mEq/L ADM SS CO2 [Moles/Vol] 24 mmol/L Normal 22 - 32 mEq/L ADM SS Creatinine [Mass/Vol] 0.77 mg/dL Normal 0.50 - 1.20 mg/dL ADM SS Electrolyte Balance 8.0 mEq/L Normal 4.0 - 15 .0 mEq/L ADM SS Eosinophils (Bld) [#/Vol] 0.7 103/mcL Normal 0.0 - 0.7 10^3/mcL AH Workflow SS Eosinophils/100 WBC (Bld) 6.3 % High 0.0 - 6.0 % Workflow SS Erythrocyte distribution width (RBC) [Ratio] 13.4 % Normal 11.5 - 15.5 % Workflow SS GFR/1.73 sq M.predicted among blacks MDRD (S/P/Bld) [Vol rate/Area] ml/min/1.73sqm Invalid Interpretation Code ADM SS Comment on above: Interpretive Data: GFR Population mean for , Non- Americans Ages 20-29 = 116 mL/min/1.73 sq.m. Ages 30-39 = 107 mL/min/1.73 sq.m. Ages 40-49 = 99 mL/min/1.73 sq.m. Ages 50-59 = 93 mL/min/1.73 sq.m. Ages 60-69 = 85 mL/min/1.73 sq.m. Ages 70+ = 75 mL/min/1.73 sq.m. Chronic Kidney Disease: Less than 60 mL/min/1.73 square meters End Stage Renal Disease: Less than 15 mL/min/1.73 square meters GFR/1.73 sq M.predicted among non-blacks MDRD (S/P/Bld) [Vol rate/Area] ml/min/1.73sqm Invalid Interpretation Code ADM SS Comment on above: Interpretive Data: GFR Population mean for , Non- Americans Ages 20-29 = 116 mL/min/1.73 sq.m. Ages 30-39 = 107 mL/min/1.73 sq.m. Ages 40-49 = 99 mL/min/1.73 sq.m. Ages 50-59 = 93 mL/min/1.73 sq.m. Ages 60-69 = 85 mL/min/1.73 sq.m. Ages 70+ = 75 mL/min/1.73 sq.m. Chronic Kidney Disease: Less than 60 mL/min/1.73 square meters End Stage Renal Disease: Less than 15 mL/min/1.73 square meters Glucose [Mass/Vol] 132 mg/dL High 70 - 110 mg/dL ADM SS Hematocrit (Bld) [Volume fraction] 39.6 % Normal 34.0 - 46.0 % Workflow SS Hemoglobin (Bld) [Mass/Vol] 13.5 G/dL Normal 12.0 - 16.0 G/dL AH Workflow SS Lymphocytes (Bld) [#/Vol] 3.0 103/mcL Normal 0.9 - 4.3 10^3/mcL AH Workflow SS Lymphocytes/100 WBC (Bld) 28.3 % Normal 20.0 - 40.0 % AH Workflow SS Magnesium [Mass/Vol] 1.9 mg/dL Normal 1.6 - 2.4 mg/dL ADM SS MCH (RBC) [Entitic mass] 30.6 pg Normal 27.0 - 33.0 pg AH Workflow SS MCHC 34.2 G/dL Normal 32.0 - 36.0 G/dL Workflow SS MCV (RBC) [Entitic vol] 89.4 fL Normal 80.0 - 99.0 fL AH Workflow SS Monocytes (Bld) [#/Vol] 1.3 103/mcL Normal 0.1 - 1.4 10^3/mcL AH Workflow SS Monocytes/100 WBC (Bld) 12.0 % Normal 2.0 - 13.0 % AH Workflow SS Neutrophils (Bld) [#/Vol] 5.6 103/mcL Normal 2.3 - 8.1 10^3/mcL AH Workflow SS Neutrophils/100 WBC (Bld) 53.2 % Normal 50.0 - 75.0 % AH Workflow SS Platelet mean volume (Bld) [Entitic vol] 8.2 fL Normal 6.6 - 10.5 fL Workflow SS Platelets (Bld) [#/Vol] 400 103/mcL Normal 150 - 450 10^3/mcL AH Workflow SS Potassium [Moles/Vol] 4.0 mmol/L Normal 3.5 - 5.0 mEq/L ADM SS RBC (Bld) [#/Vol] 4.43 106/mcL Normal 4.10 - 5.3 0 10^6/mcL Workflow SS Sodium [Moles/Vol] 141 mmol/L Normal 136 - 145 mEq/L ADM SS Urea nitrogen [Mass/Vol] 10.0 mg/dL Normal 8.0 - 22.0 mg/dL ADM SS Urea nitrogen/Creatinine [Mass ratio] 13.0 ratio Normal 10.0 - 22.0 ratio ADM SS WBC (Bld) [#/Vol] 10.5 103/mcL Normal 4.5 - 10.8 10^3/mcL Workflow SS MGon 10-01-2023 Magnesium [Mass/Vol] 1.9 mg/dL Normal 1.6-2.4 [facility] ([place]) Comment on above: Performed By: #### T CHICO, DIMER, TSHR, A1C, LIPID #### [address] [id number] .Auto Diffon 09-30-2023 Basophil, Absolute 0.0 10 3/mcL Normal 0.0-0.3 [facility] ([place]) Comment on above: Performed By: #### T KATELIN GOLDEN ANEU, MDW, CBC, ADIFF, GFR, CMP #### [address] [address] Basophils/100 WBC (Bld) 0.3 % Normal 0.0-2.5 [facility] ([place]) Comment on above: Performed By: #### T KATELIN GOLDEN ANEU, MDW, CBC, ADIFF, GFR, CMP #### [address] [address] Eosinophil, Absolute 0.7 10 3/mcL Normal 0.0-0.7 [facility] ([place]) Comment on above: Performed By: #### T ROPHS, PBNP, ANEU, MDW, CBC, ADIFF, GFR, CMP #### [address] [address] Eosinophils/100 WBC (Bld) 6.0 % Normal 0.0-6.0 [facility] ([place]) Comment on above: Performed By: #### T CHICO, PBNP, ANEU, MDW, CBC, ADIFF, GFR, CMP #### [address] [address] Lymphocyte, Absolute 3.1 10 3/mcL Normal 0.9-4.3 [facility] ([place]) Comment on above: Performed By: #### T CHICO, PBNP, ANEU, MDW, CBC, ADIFF, GFR, CMP #### [address] [address] Lymphocytes/100 WBC (Bld) 27.9 % Normal 20.0-40.0 [facility] ([place]) Comment on above: Performed By: #### T CHICO, PBNP, ANEU, MDW, CBC, ADIFF, GFR, CMP #### [address] [address] Monocyte, Absolute 1.1 10 3/mcL Normal 0.1-1.4 [facility] ([place]) Comment on above: Performed By: #### T CHICO, PBNP, ANEU, MDW, CBC, ADIFF, GFR, CMP #### [address] [address] Monocytes/100 WBC (Bld) 9.7 % Normal 2.0-13.0 [facility] ([place]) Comment on above: Performed By: #### T CHICO, PBNP, ANEU, MDW, CBC, ADIFF, GFR, CMP #### [address] [address] Neutrophils/100 WBC (Bld) 56.1 % Normal 50.0-75.0 [facility] ([place]) Comment on above: Performed By: #### T CHICO, PBNP, ANEU, MDW, CBC, ADIFF, GFR, CMP #### [address] [address] .GFRon 09-30-2023 GFR >60 Normal [facility] ([place]) Comment on above: Result Comment: GFR Population mean for , Non- Americans Ages 20-29 = 116 mL/min/1.73 sq.m. Ages 30-39 = 107 mL/min/1.73 sq.m. Ages 40-49 = 99 mL/min/1.73 sq.m. Ages 50-59 = 93 mL/min/1.73 sq.m. Ages 60-69 = 85 mL/min/1.73 sq.m. Ages 70+ = 75 mL/min/1.73 sq.m. Chronic Kidney Disease: Less than 60 mL/min/1.73 square meters End Stage Renal Disease: Less than 15 mL/min/1.73 square meters Performed By: #### T ROPHS, DIMER, TSHR, A1C, LIPID #### [address] [address] GFR Non- >60 Normal [facility] ([place]) Comment on above: Result Comment: GFR Population mean for , Non- Americans Ages 20-29 = 116 mL/min/1.73 sq.m. Ages 30-39 = 107 mL/min/1.73 sq.m. Ages 40-49 = 99 mL/min/1.73 sq.m. Ages 50-59 = 93 mL/min/1.73 sq.m. Ages 60-69 = 85 mL/min/1.73 sq.m. Ages 70+ = 75 mL/min/1.73 sq.m. Chronic Kidney Disease: Less than 60 mL/min/1.73 square meters End Stage Renal Disease: Less than 15 mL/min/1.73 square meters Performed By: #### T ROPHS, DIMER, TSHR, A1C, LIPID #### [address] [address] .MDWon 09-30-2023 Monocyte Distribution Width 18.98 Normal 0.00-20.00 [facility] ([place]) Comment on above: Result Comment: For ED adult patients suspected of sepsis, MDW<=20.0 does not rule out sepsis or risk of sepsis Performed By: #### T ROPHS, DIMER, TSHR, A1C, LIPID #### [address] [address] .NEUABSon 09-30-2023 Neutrophil, Absolute 6.2 10 3/mcL Normal 2.3-8.1 [facility] ([place]) Comment on above: Performed By: #### T CHICO, DIMER, TSHR, A1C, LIPID #### [address] [address] CBCon 09-30-2023 Erythrocyte distribution width (RBC) [Ratio] 13.8 % Normal 11.5-15.5 [facility] ([place]) Comment on above: Performed By: #### T CHICO, KATELIN, ANEU, MDW, CBC, ADIFF, GFR, CMP #### [place] [address] Hematocrit (Bld) [Volume fraction] 41.8 % Normal 34.0-46.0 [facility] ([place]) Comment on above: Performed By: #### T CHICO, KATELIN, ANEU, MDW, CBC, ADIFF, GFR, CMP #### [place] [address] Hgb 14.1 G/dL Normal 12.0-16.0 [facility] ([place]) Comment on above: Performed By: #### T CHICO, KATELIN, ANEU, MDW, CBC, ADIFF, GFR, CMP #### [place] [address] MCH (RBC) [Entitic mass] 30.5 pg Normal 27.0-33.0 [facility] ([place] Comment on above: Performed By: #### T CHICO, KATELIN, ANEU, MDW, CBC, ADIFF, GFR, CMP #### [place] [id number] MCHC 33.7 G/dL Normal 32.0-36.0 [facility] ([place]) Comment on above: Performed By: #### T CHICO, PBNP, ANEU, MDW, CBC, ADIFF, GFR, CMP #### [place] [id number] MCV (RBC) [Entitic vol] 90.6 fL Normal 80.0-99.0 [facility] ([place]) Comment on above: Performed By: #### T CHICO, KATELIN, SUSY, MDW, CBC, ADIFF, GFR, CMP #### [place] [address] Platelet 433 10 3/mcL Normal 150-450 [facility] ([place]) Comment on above: Performed By: #### T CHICO, KATELIN, ANEU, MDW, CBC, ADIFF, GFR, CMP #### [place] [address] Platelet mean volume (Bld) [Entitic vol] 8.6 fL Normal 6.6-10.5 [facility] ([place] Comment on above: Performed By: #### T CHICO, KATELIN, ANEU, MDW, CBC, ADIFF, GFR, CMP #### [place] [address] RBC 4.62 10 6/mcL Normal 4.10-5.30 [facility] ([place]) Comment on above: Performed By: #### T CHICO, KATELIN, ANEU, MDW, CBC, ADIFF, GFR, CMP #### [place] [id number] WBC 11.0 10 3/mcL High 4.5-10.8 [facility] ([place] Comment on above: Performed By: #### T CHICO, KATELIN, ANEU, MDW, CBC, ADIFF, GFR, CMP #### [place] [address] CMPon 09-30-2023 Albumin Level 3.8 G/dL Normal 3.2-4.8 [facility] ([place] Comment on above: Performed By: #### T CHICO, DIMER, TSHR, A1C, LIPID #### [place] [address] Albumin/Globulin [Mass ratio] 1.2 {ratio} Normal 0.9-1.6 [facility] ([place] Comment on above: Performed By: #### T CHICO, DIMER, TSHR, A1C, LIPID #### [address] [address] ALP [Catalytic activity/Vol] 125 U/L Normal 38-126 [facility] ([place] Comment on above: Performed By: #### T ROPHS, DIMER, TSHR, A1C, LIPID #### [address] [address] ALT [Catalytic activity/Vol] 24 U/L Normal 10-49 [facility] ([place] Comment on above: Performed By: #### T ROPHS, DIMER, TSHR, A1C, LIPID #### [address] [address] AST [Catalytic activity/Vol] 25 U/L Normal 8-34 [facility] ([place] Comment on above: Performed By: #### T RICHHS, DIMER, TSHR, A1C, LIPID #### [place] [id number] Bili Total 0.20 mg/dL Normal 0.20-1.20 [facility] ([place]) Comment on above: Result Comment: Use of this assay is not recommended for patients undergoing treatment with eltrombopag due to the potential for falsely elevated results. Performed By: #### T CHICO, DIMER, TSHR, A1C, LIPID #### [place] [id number] BUN/Creatinine Ratio 16.7 ratio Normal 10.0-22.0 [facility] ([place]) Comment on above: Performed By: #### T CHICO, DIMER, TSHR, A1C, LIPID #### [address] [address] Calcium [Mass/Vol] 8.9 mg/dL Normal 8.7-10.4 [facility] ([place]) Comment on above: Performed By: #### T ROPHS, DIMER, TSHR, A1C, LIPID #### [address] [address] Chloride [Moles/Vol] 103 mmol/L Normal 98-110 [facility] ([place]) Comment on above: Performed By: #### T ROPHS, DIMER, TSHR, A1C, LIPID #### [address] [address] CO2 [Moles/Vol] 30 mmol/L Normal 22-32 [facility] ([place] Comment on above: Performed By: #### T CHICO, DIMER, TSHR, A1C, LIPID #### [address] [address] Creatinine [Mass/Vol] 0.78 mg/dL Normal 0.50-1.20 [facility] ([place]) Comment on above: Performed By: #### T ROPHS, DIMER, TSHR, A1C, LIPID #### [address] [address] Electrolyte Balance 4.0 mEq/L Normal 4.0-15.0 [facility] ([place]) Comment on above: Performed By: #### T CHICO, DIMER, TSHR, A1C, LIPID #### [address] [address] Globulin 3.1 G/dL Normal 1.5-3.8 [facility] ([place] Comment on above: Performed By: #### T CHICO, DIMER, TSHR, A1C, LIPID #### [address] [address] Glucose [Mass/Vol] 138 mg/dL High 70-110 [facility] ([place]) Comment on above: Performed By: #### T ROPSTEPHEN, DIMER, TSHR, A1C, LIPID #### [address] [address] Potassium [Moles/Vol] 4.0 mmol/L Normal 3.5-5.0 [facility] ([place]) Comment on above: Performed By: #### T ROPHS, DIMER, TSHR, A1C, LIPID #### [address] [address] Sodium [Moles/Vol] 137 mmol/L Normal 136-145 [facility] ([place]) Comment on above: Performed By: #### T ROPHS, DIMER, TSHR, A1C, LIPID #### [address] [address] Total Protein 6.9 G/dL Normal 5.7-8.2 [facility] ([place]) Comment on above: Result Comment: No te - New Reference Range in effect 19 Performed By: #### T CHICO, DIMER, TSHR, A1C, LIPID #### [place] [id number] [place] [address] Urea nitrogen [Mass/Vol] 13.0 mg/dL Normal 8.0-22.0 [facility] ([place] Comment on above: Performed By: #### T CHICO, DIMER, TSHR, A1C, LIPID #### [place] [id number] [place] [address] DIMERon 09-30-2023 D-Dimer <200 Normal 0-230 [facility] ([place]) Comment on above: Order Comment: Blue top hemolyzed; please recollect; spoke with Nabeel in ER:18:54 Result Comment: DDN: Results reported in D-DU ng/mL. Negative for D-dimer. DVT/PE is highly unlikely. Note: False negative results may be seen in patients on anticoagulant therapy. The result of the D-Dimer test should be evaluated in the context of all the clinical and laboratory data available. In those instances where the laboratory result does not agree with the clinical evaluation, additional tests should be performed accordingly. Performed By: #### T CHICO, DIMER, TSHR, A1C, LIPID #### [address] [address] LABORATORYOrdered By: Rene Randall on 09-30-2023 Cholesterol [Mass/Vol] 218 mg/dL High 50 - 199 mg/dL AH ADM SS Comment on above: Interpretive Data: C holesterol Reference Interval: Less than 200 Desirable 200-239 Borderline high risk 240 and above High risk Cholesterol in HDL [Mass/Vol] 61 mg/dL High 40 - 59 mg/dL AH ADM SS Cholesterol in LDL [Mass/Vol] 132 mg/dL High 0 - 129 mg/dL AH ADM SS Triglyceride [Mass/Vol] 127 mg/dL Normal 3 - 149 mg/dL AH ADM SS Appearance (U) Clear (09/30/23 7:15 PM) Normal Clear AH Auto Urine SS Bilirubin Ql (U) Negative (09/30/23 7:15 PM) Normal Neg-Trace AH Auto Urine SS Color (U) Yellow (09/30/23 7:15 PM) Normal AH Auto Urine SS Glucose Test strip (U) [Mass/Vol] Negative Normal Negative AH Auto Urine SS Hemoglobin Auto test strip (U) [Mass/Vol] Negative (09/30/23 7:15 PM) Normal Neg-Trace AH Auto Urine SS Ketones Ql (U) Negative Normal Neg-Trace AH Auto Urine SS UA Leuk Est Negative (09/30/23 7:15 PM) Normal Negative AH Auto Urine SS UA Nitrite Negative (09/30/23 7:15 PM) Normal Negative AH Auto Urine SS UA pH 5.5 (09/30/23 7:15 PM) Normal 5.0 - 8.0 AH Auto Urine SS UA Protein Negative Normal Negative AH Auto Urine SS UA Spec Grav <=1.005 *ABN* (09/30/23 7:15 PM) Invalid Interpretation Code 1.006-1.029 AH Auto Urine SS UA Specimen Type Void (09/30/23 7:15 PM) Normal AH Auto Urine SS UA Urobilinogen 0.2 E.U./dL Normal 0.2-1.0 AH Auto Urine SS LABORATORYOrdered By: Patti Irving on 09-30-2023 D-Dimer ng/mL D-DU Normal 0 - 230 ng/mL D-DU Hemo[facility] SS Comment on above: Result Comment: DDN: Results reported in D-DU ng/mL. Negative for D-dimer. DVT/PE is highly unlikely. Note: False negative results may be seen in patients on anticoagulant therapy. Interpretive Data: T he result of the D-Dimer test should be evaluated in the context of all the clinical and laboratory data available. In those instances where the laboratory result does not agree with the clinical evaluation, additional tests should be performed accordingly. LABORATORYOrdered By: Fancy [employer] on 09-30-2023 HbA1c (Bld) [Mass fraction] 7.0 % High 4.0 - 6.0 % Auto Chem SS Natriuretic peptide.B prohormone N-Terminal IA [Mass/Vol] 354 pg/mL Normal 0 - 900 pg/mL ADM SS Troponin I.cardiac DL <= 0.01 ng/mL [Mass/Vol] ng/L Normal 0 - 34 ng/L AH ADM SS Comment on above: Interpretive Data: High Sensitive Troponin I Reference Ranges: Female: 0-34 ng/L Male: 0-54 ng/L Testing performed on [employer] IM analyzer using direct chemiluminescent technology. TSH Qn 2.780 mIU/mL Normal 0.550 - 4.780 mIU/mL ADM SS Comment on above: Interpretive Data: * *Note - New Reference Range in effect 19 Troponin I.cardiac DL <= 0.01 ng/mL [Mass/Vol] ng/L Normal 0 - 34 ng/L ADM SS Comment on above: Interpretive Data: High Sensitive Troponin I Reference Ranges: Female: 0-34 ng/L Male: 0-54 ng/L Testing performed on [employer] IM analyzer using direct chemiluminescent technology. Albumin BCP dye [Mass/Vol] 3.8 G/dL Normal 3.2 - 4.8 G/dL ADM SS Albumin/Globulin [Mass ratio] 1.2 {ratio} Normal 0.9 - 1.6 ratio AH ADM SS ALP [Catalytic activity/Vol] 125 U/L Normal 38 - 126 U/L ADM SS ALT No additional P-5'-P [Catalytic activity/Vol] 24 U/L Normal 10 - 49 U/L AH ADM SS AST [Catalytic activity/Vol] 25 U/L Normal 8 - 34 U/L ADM SS Basophils (Bld) [#/Vol] 0.0 103/mcL Normal 0.0 - 0.3 10^3/mcL Workflow SS Basophils/100 WBC (Bld) 0.3 % Normal 0.0 - 2.5 % Workflow SS Bilirubin [Mass/Vol] 0.20 mg/dL Normal 0.20 - 1.20 mg/dL ADM SS Comment on above: Interpretive Data: U se of this assay is not recommended for patients undergoing treatment with eltrombopag due to the potential for falsely elevated results. Calcium [Mass/Vol] 8.9 mg/dL Normal 8.7 - 10. 4 mg/dL ADM SS Chloride [Moles/Vol] 103 mmol/L Normal 98 - 110 mEq/L ADM SS CO2 [Moles/Vol] 30 mmol/L Normal 22 - 32 mEq/L ADM SS Creatinine [Mass/Vol] 0.78 mg/dL Normal 0.50 - 1.20 mg/dL ADM SS Electrolyte Balance 4.0 mEq/L Normal 4.0 - 15 .0 mEq/L ADM SS Eosinophils (Bld) [#/Vol] 0.7 103/mcL Normal 0.0 - 0.7 10^3/mcL Workflow SS Eosinophils/100 WBC (Bld) 6.0 % Normal 0.0 - 6.0 % Workflow SS Erythrocyte distribution width (RBC) [Ratio] 13.8 % Normal 11.5 - 15.5 % Workflow SS GFR/1.73 sq M.predicted among blacks MDRD (S/P/Bld) [Vol rate/Area] ml/min/1.73sqm Invalid Interpretation Code [facility] Comment on above: Interpretive Data: GFR Population mean for , Non- Americans Ages 20-29 = 116 mL/min/1.73 sq.m. Ages 30-39 = 107 mL/min/1.73 sq.m. Ages 40-49 = 99 mL/min/1.73 sq.m. Ages 50-59 = 93 mL/min/1.73 sq.m. Ages 60-69 = 85 mL/min/1.73 sq.m. Ages 70+ = 75 mL/min/1.73 sq.m. Chronic Kidney Disease: Less than 60 mL/min/1.73 square meters End Stage Renal Disease: Less than 15 mL/min/1.73 square meters GFR/1.73 sq M.predicted among non-blacks MDRD (S/P/Bld) [Vol rate/Area] ml/min/1.73sqm Invalid Interpretation Code [facility] Comment on above: Interpretive Data: GFR Population mean for , Non- Americans Ages 20-29 = 116 mL/min/1.73 sq.m. Ages 30-39 = 107 mL/min/1.73 sq.m. Ages 40-49 = 99 mL/min/1.73 sq.m. Ages 50-59 = 93 mL/min/1.73 sq.m. Ages 60-69 = 85 mL/min/1.73 sq.m. Ages 70+ = 75 mL/min/1.73 sq.m. Chronic Kidney Disease: Less than 60 mL/min/1.73 square meters End Stage Renal Disease: Less than 15 mL/min/1.73 square meters Globulin 3.1 G/dL Normal 1.5 - 3.8 G/dL [facility] Glucose [Mass/Vol] 138 mg/dL High 70 - 110 mg/dL AH ADM SS Hematocrit (Bld) [Volume fraction] 41.8 % Normal 34.0 - 46.0 % AH Workflow SS Hemoglobin (Bld) [Mass/Vol] 14.1 G/dL Normal 12.0 - 16.0 G/dL AH Workflow SS Lymphocytes (Bld) [#/Vol] 3.1 103/mcL Normal 0.9 - 4.3 10^3/mcL AH Workflow SS Lymphocytes/100 WBC (Bld) 27.9 % Normal 20.0 - 40.0 % AH Workflow SS MCH (RBC) [Entitic mass] 30.5 pg Normal 27.0 - 33.0 pg AH Workflow SS MCHC 33.7 G/dL Normal 32.0 - 36.0 G/dL AH Workflow SS MCV (RBC) [Entitic vol] 90.6 fL Normal 80.0 - 99.0 fL AH Workflow SS Monocyte distribution width Auto (Bld) [Entitic vol] 18.98 1 Normal 0.00 - 20.00 Workflow SS Comment on above: Result Comment: For ED adult patients suspected of sepsis, MDW<=20.0 does not rule out sepsis or risk of sepsis Monocytes (Bld) [#/Vol] 1.1 103/mcL Normal 0.1 - 1.4 10^3/mcL AH Workflow SS Monocytes/100 WBC (Bld) 9.7 % Normal 2.0 - 13.0 % AH Workflow SS Neutrophils (Bld) [#/Vol] 6.2 103/mcL Normal 2.3 - 8.1 10^3/mcL AH Workflow SS Neutrophils/100 WBC (Bld) 56.1 % Normal 50.0 - 75.0 % AH Workflow SS Platelet mean volume (Bld) [Entitic vol] 8.6 fL Normal 6.6 - 10.5 fL AH Workflow SS Platelets (Bld) [#/Vol] 433 103/mcL Normal 150 - 450 10^3/mcL AH Workflow SS Potassium [Moles/Vol] 4.0 mmol/L Normal 3.5 - 5.0 mEq/L ADM SS Protein [Mass/Vol] 6.9 G/dL Normal 5.7 - 8.2 G/dL AH ADM SS Comment on above: Interpretive Data: * *Note - New Reference Range in effect 19 RBC (Bld) [#/Vol] 4.62 106/mcL Normal 4.10 - 5.3 0 10^6/mcL AH Workflow SS Sodium [Moles/Vol] 137 mmol/L Normal 136 - 145 mEq/L AH ADM SS Troponin I.cardiac DL <= 0.01 ng/mL [Mass/Vol] ng/L Normal 0 - 34 ng/L AH ADM SS Comment on above: Interpretive Data: High Sensitive Troponin I Reference Ranges: Female: 0-34 ng/L Male: 0-54 ng/L Testing performed on [employer] analyzer using direct chemiluminescent technology. Urea nitrogen [Mass/Vol] 13.0 mg/dL Normal 8.0 - 22.0 mg/dL ADM SS Urea nitrogen/Creatinine [Mass ratio] 16.7 ratio Normal 10.0 - 22.0 ratio AH ADM SS WBC (Bld) [#/Vol] 11.0 103/mcL High 4.5 - 10.8 10^3/mcL AH Workflow SS LIPIDon 09-30-2023 Cholesterol [Mass/Vol] 218 mg/dL High 50-199 [facility] ([place]) Comment on above: Result Comment: Chol esterol Reference Interval: Less than 200 Desirable 200-239 Borderline high risk 240 and above High risk Performed By: #### Fredrick GOLDEN, DIMER, TSHR, A1C, LIPID #### [address] [address] Cholesterol in HDL [Mass/Vol] 61 mg/dL High 40-59 [facility] ([place]) Comment on above: Performed By: #### Fredrick GOLDEN, DIMER, TSHR, A1C, LIPID #### [address] [address] Cholesterol in LDL [Mass/Vol] 132 mg/dL High 0-129 [facility] ([place]) Comment on above: Performed By: #### Fredrick GOLDEN, DIMER, TSHR, A1C, LIPID #### [address] [address] Triglyceride [Mass/Vol] 127 mg/dL Normal 3-149 [facility] ([place]) Comment on above: Performed By: #### Fredrick GOLDEN, DIMER, TSHR, A1C, LIPID #### [address] [address] PBNPon 09-30-2023 Natriuretic peptide B (Bld) [Mass/Vol] 354 pg/mL Normal 0-900 [facility] ([place]) Comment on above: Performed By: #### T CHICO, DIMER, TSHR, A1C, LIPID #### [place] [id number] TROPHSon 09-30-2023 High Sensitivity Troponin I <3 Normal 0-34 [facility] ([place]) Comment on above: Order Comment: Blue top hemolyzed; please recollect; spoke with Nabeel in ER:18:54 Result Comment: High Sensitive Troponin I Reference Ranges: Female: 0-34 ng/L Male: 0-54 ng/L Testing performed on [employer] IM analyzer using direct chemiluminescent technology. Performed By: #### T CHICO, DIMER, TSHR, A1C, LIPID #### [place] [address] High Sensitivity Troponin I <3 Normal 0-34 [facility] ([place]) Comment on above: Result Comment: High Sensitive Troponin I Reference Ranges: Female: 0-34 ng/L Male: 0-54 ng/L Testing performed on [employer] IM analyzer using direct chemiluminescent technology. Performed By: #### T CHICO, DIMER, TSHR, A1C, LIPID #### [place] [address] High Sensitivity Troponin I <3 Normal 0-34 [facility] ([place]) Comment on above: Result Comment: High Sensitive Troponin I Reference Ranges: Female: 0-34 ng/L Male: 0-54 ng/L Testing performed on [employer] IM analyzer using direct chemiluminescent technology. Performed By: #### T ROPHS #### [place] [address] TSHRon 09-30-2023 TSH 2.780 mIU/mL Normal 0.550-4.780 [facility] ([place]) Comment on above: Result Comment: No te - New Reference Range in effect 19 Performed By: #### T RICHHS, DIMER, TSHR, A1C, LIPID #### [place] [id number] UAon 09-30-2023 Color (U) Yellow Normal [facility] ([place]) Comment on above: Performed By: #### U A #### [place] [address] Glucose (U) [Mass/Vol] Negative Normal Negative [facility] ([place] Comment on above: Performed By: #### U A #### [place] [id number] Ketones Ql (U) Negative Normal Neg-Trace [facility] ([place]) Comment on above: Performed By: #### U A #### [place] [address] UA Appear Clear Normal Clear [facility] ([place]) Comment on above: Performed By: #### U A #### [place] [address] UA Blood Negative Normal Neg-Trace [facility] ([place] Comment on above: Performed By: #### U A #### [place] [address] UA Leuk Est Negative Normal Negative [facility] ([place] Comment on above: Performed By: #### U A #### [place] [address] UA Nitrite Negative Normal Negative [facility] ([place] Comment on above: Performed By: #### U A #### [place] [address] UA pH 5.5 Normal 5.0 - 8.0 [facility] ([place] Comment on above: Performed By: #### U A #### [place] [address] UA Protein Negative Normal Negative [facility] ([place] Comment on above: Performed By: #### U A #### [place] [address] UA Spec Grav <=1.005 Abnormal 1.006-1.029 [facility] ([place] Comment on above: Performed By: #### U A #### [place] [address] UA Specimen Type Void Normal [facility] ([place] Comment on above: Performed By: #### U A #### [facility] [address] [place] [address] UA Urobilinogen 0.2 E.U./dL Normal 0.2-1.0 [facility] ([place]) Comment on above: Performed By: #### U A #### [facility] [address] [place] [address] Urobilinogen (U) [Mass/Vol] Negative Normal Neg-Trace [facility] ([place]) Comment on above: Performed By: #### U A #### [facility] [address] [place] [address] XR CHEST 1 VIEWon 09-30-2023 XR CHEST 1 VIEW ORIGINAL EXAMINATION: ONE XRAY VIEW OF THE CHEST09/30/2023 2:20 pm COMPARISON: None. HISTORY: ORDERING SYSTEM PROVIDED HISTORY: Reason for Exam: chest pain FINDINGS: The cardiomediastinal silhouette is unremarkable. There is no pulmonary vascular congestion. There is no focal consolidation. No significant volume pleural effusion. No pneumothorax. No acute osseous abnormality by radiograph. Osseous detail is limited. Surgical clips within the right upper quadrant. IMPRESSION: No acute radiographic findings. I have personally reviewed the images of this examination and agree with the resident's findings and interpretation. Interpreted by: Rustam Soto MD Preliminary Report By: Jimmy Verde Electronically signed By Rustam Soto MD Dictated Date: 09/30/2023 2:27:47 PM Prelim Date: 09/30/2023 2:29:28 PM Sign Date: 09/30/2023 2:49:27 PM Ordering Provider: DONIS Tao [facility] ([place]) No Panel Informationon 01-31 Table formatting fro m the original result was not included. Impression The terminal ileum appeared normal. Small hemorrhoids Findings The terminal ileum appeared normal. Internal small hemorrhoids observed during retroflexion Recommendation Repeat screening colonoscopy in 10 years Follow up with PCP Indication Encounter for screening for malignant neoplasm of colon Medications See Anesthesia Record. Preprocedure A history and physical has been performed, and patient medication allergies have been reviewed. The patient's tolerance of previous anesthesia has been reviewed. The risks and benefits of the procedure and the sedation options and risks were discussed with the patient. All questions were answered and informed consent obtained. Details of the Procedure The patient underwent monitored anesthesia care, which was administered by an anesthesia professional. The patient's blood pressure, heart rate, level of consciousness, respirations, oxygen, ECG and ETCO2 were monitored throughout the procedure. A digital rectal exam was performed. The scope was introduced through the anus and advanced to the terminal ileum. Retroflexion was performed in the rectum. The quality of bowel preparation was evaluated using the [place] Bowel Preparation Scale with scores of: right colon = 3, transverse colon = 3, left colon = 3. The total BBPS score was 9. Bowel prep was adequate. The patient experienced no blood loss. The procedure was not difficult. The patient tolerated the procedure well. There were no apparent adverse events. Events Procedure Events Event Event Time ENDO SCOPE IN TIME 01/31/2023 9:35 AM ENDO CECUM REACHED 01/31/2023 9:35 AM ENDO SCOPE OUT TIME 01/31/2023 9:44 AM Specimens No specimens collected Procedure Location [facility] External Facility [facility] [address] [facility] [id number] Ref[place] [address] [employer] [facility] Department Of Medicine-[place] [address] Procedure Provider Ángel Vicente DO [facility] Work Phone: [facility] Work Phone: Radiology Study observation (narrative) [facility] Work Phone: ANTI-DNA [DS]on 11-01-2022 ANTI-DNA [DS] <1.0 Normal [facility] [place] Comment on above: Result Comment: REF VALUES NEGATIVE: <= 4 IU/ML EQUIVOCAL: 5- 9 IU/ML POSITIVE: >=10 IU/ML Performed By: #### D NADS #### [facility] [address] [place] [address] Anti-dsDNA (Double Stranded) Antibodieson 11-01-2022 DNA double strand Ab Qn (S) [IU]/mL -[facility] Work Phone: Comment on above: REF VALUESNEGATIVE: <= 4 IU/MLEQUIVOCAL: 5- 9 IU/MLPOSITIVE: >=10 IU/ML C Reactive Protein, Serumon 11-01-2022 CRP [Mass/Vol] 1.78 mg/dL Abnormal [facility] [employer] Work Phone: Comment on above: REF VALUE< 1.00 C-REACTIVE PROTEINon 023 C-REACTIVE PROTEIN 1.78 mg/dL Abnormal [facility] Comment on above: Result Comment: REF VALUE < 1.00 Performed By: #### C RP #### [facility] [address] [place] [address] C3 COMPLEMENTon 11-01-2022 C3 COMPLEMENT 158 mg/dL Normal 87 - 200 [facility] [place] Comment on above: Performed By: #### V TDOH #### [place] [address] [place] [address] C3 Complement, Serumon 11-01 Complement C3 [Mass/Vol] 158 mg/dL 87 - 200 [facility] [employer] Work Phone: [phone] COMPLEMENTon 11-01-2022 C4 COMPLEMENT 71 mg/dL High 10 - 50 [facility] [place] Comment on above: Performed By: #### C 4 #### [facility] [address] [place] [address] C4 Complement, Serumon 11-01 Complement C4 [Mass/Vol] 71 mg/dL above high threshold 10 - 50 [facility] Work Phone: CBC AND DIFFERENTIALon 11-01 % AUTOMATED IMMATURE GRAN 0.2 % Normal 0.0 - 0.9 [facility] Comment on above: Result Comment: Jahaira ture Granulocyte Count (IG) includes promyelocytes, myelocytes and metamyelocytes but does not include bands. Percent differential counts (%) should be interpreted in the context of the absolute cell counts (cells/L). Performed By: #### V TDOH #### [facility] [address] [place] [address] Basophils (Bld) [#/Vol] 0.16 10*3/uL High 0.00 - 0.10 [facility] Comment on above: Performed By: #### V TDOH #### [place] [address] [place] [address] Basophils/100 WBC (Bld) 1.5 % Normal 0.0 - 2.0 [facility] Comment on above: Performed By: #### V TDOH #### [facility] [address] [place] [address] Eosinophils (Bld) [#/Vol] 0.42 10*3/uL Normal 0.00 - 0.70 [facility] Comment on above: Performed By: #### V TDOH #### [place] [address] [place] [address] Eosinophils/100 WBC (Bld) 3.9 % Normal 0.0 - 6.0 [facility] Comment on above: Performed By: #### V TDOH #### [facility] [address] [place] [address] Erythrocyte distribution width (RBC) [Ratio] 14.1 % Normal 11.5 - 14.5 [facility] Comment on above: Performed By: #### V TDOH #### [place] [address] [place] [address] Hematocrit (Bld) [Volume fraction] 44.6 % Normal 36.0 - 46.0 [facility] Comment on above: Performed By: #### V TDOH #### [place] [address] [place] [address] Hemoglobin (Bld) [Mass/Vol] 13.8 g/dL Normal 12.0 - 16.0 [facility] Comment on above: Performed By: #### V TDOH #### [facility] [address] [place] [address] Lymphocytes (Bld) [#/Vol] 2.81 10*3/uL Normal 1.20 - 4.80 [facility] Comment on above: Performed By: #### V TDOH #### [facility] [address] [place] [address] Lymphocytes/100 WBC (Bld) 26.3 % Normal 13.0 - 44.0 [facility] Comment on above: Performed By: #### V TDOH #### [facility] [address] [place] [address] MCHC (RBC) [Mass/Vol] 30.9 g/dL Low 32.0 - 36.0 [facility] Comment on above: Performed By: #### V TDOH #### [facility] [address] [place] [address] MCV (RBC) [Entitic vol] 93 fL Normal 80 - 100 [facility] Comment on above: Performed By: #### V TDOH #### [facility] [address] [place] [address] Monocytes (Bld) [#/Vol] 1.25 10*3/uL High 0.10 - 1.00 [facility] Comment on above: Performed By: #### V TDOH #### [facility] [address] [place] [address] Monocytes/100 WBC (Bld) 11.7 % Normal 2.0 - 10.0 [facility] Comment on above: Performed By: #### V TDOH #### [facility] [address] [place] [address] Neutrophils (Bld) [#/Vol] 6.03 10*3/uL Normal 1.20 - 7.70 [facility] Comment on above: Performed By: #### V TDOH #### [facility] [address] [place] [address] Neutrophils/100 WBC (Bld) 56.4 % Normal 40.0 - 80.0 [facility] Comment on above: Performed By: #### V TDOH #### [facility] [address] [place] [address] NUCLEATED RBC 0.0 /100 WBC Normal 0.0-0.0 [facility] Comment on above: Performed By: #### V TDOH #### [facility] [address] [place] [address] Platelets (Bld) [#/Vol] 465 10*3/uL High 150 - 450 [facility] Comment on above: Performed By: #### V TDOH #### [facility] [address] [place] [address] RBC 4.78 x10E12/L Normal 4.00 - 5.20 [facility] [place] Comment on above: Performed By: #### V TDOH #### [facility] [address] [place] [address] WBC (Bld) [#/Vol] 10.7 10*3/uL Normal 4.4 - 11.3 [facility] Comment on above: Performed By: #### V TDOH #### [facility] [address] [place] [address] COMPREHENSIVE PANELon 2022 Albumin [Mass/Vol] 4.2 g/dL Normal 3.4 - 5.0 [facility] Comment on above: Performed By: #### C MP #### [facility] [address] [place] [address] ALP [Catalytic activity/Vol] 89 U/L Normal 33 - 110 [facility] Comment on above: Performed By: #### C MP #### [facility] [address] [place] [address] ALT [Catalytic activity/Vol] 13 U/L Normal 7 - 45 [facility] Comment on above: Result Comment: Loretta ents treated with Sulfasalazine may generate falsely decreased results for ALT. Performed By: #### C MP #### [facility] [address] [place] [address] Anion gap [Moles/Vol] 14 mmol/L Normal 10 - 20 [facility] Comment on above: Performed By: #### C MP #### [facility] [address] [place] [address] AST [Catalytic activity/Vol] 16 U/L Normal 9 - 39 [facility] Comment on above: Performed By: #### C MP #### [facility] [address] [place] [address] Bilirubin [Mass/Vol] 0.5 mg/dL Normal 0.0 - 1.2 [facility] Comment on above: Performed By: #### C MP #### [facility] [address] [place] [address] Calcium [Mass/Vol] 9.9 mg/dL Normal 8.6 - 10.6 [facility] Comment on above: Performed By: #### C MP #### [facility] [address] [place] [address] Chloride [Moles/Vol] 99 mmol/L Normal 98 - 107 [facility] Comment on above: Performed By: #### C MP #### [facility] [address] [place] [address] Creatinine [Mass/Vol] 0.91 mg/dL Normal 0.50 - 1.05 [facility] Comment on above: Performed By: #### C MP #### [facility] [address] [place] [address] GFR/1.73 sq M.predicted among non-blacks MDRD (S/P/Bld) [Vol rate/Area] 77 mL/min/{1.73_m2} Normal >90 [facility] Comment on above: Result Comment: CALC ULATIONS OF ESTIMATED GFR ARE PERFORMED USING THE 2020 CKD-EPI STUDY REFIT EQUATION WITHOUT THE RACE VARIABLE FOR THE IDMS-TRACEABLE CREATININE METHODS. https://jasn.asnjournals.org/content/early/ASN.98518541 88 Performed By: #### C MP #### [facility] [address] [place] [address] Glucose [Mass/Vol] 102 mg/dL High 74 - 99 [facility] Comment on above: Performed By: #### C MP #### [facility] [address] [place] [address] HCO3 (Bld) [Moles/Vol] 30 mmol/L Normal 21 - 32 [facility] Comment on above: Performed By: #### C MP #### [facility] [address] [place] [address] Potassium [Moles/Vol] 4.8 mmol/L Normal 3.5 - 5.3 [facility] Comment on above: Performed By: #### C MP #### [facility] [address] [place] [address] Protein [Mass/Vol] 7.0 g/dL Normal 6.4 - 8.2 [facility] Comment on above: Performed By: #### C MP #### [facility] [address] [place] [address] Sodium [Moles/Vol] 138 mmol/L Normal 136 - 145 [facility] Comment on above: Performed By: #### C MP #### [facility] [address] [place] [address] Urea nitrogen [Mass/Vol] 16 mg/dL Normal 6 - 23 [facility] Comment on above: Performed By: #### C MP #### [facility] [address] [place] [address] Complete Blood Count + Diffe julieton 11-01-2022 Basophils/100 WBC (Bld) 1.5 % 0.0 - 2.0 -[facility] [employer] Work Phone: [phone] Erythrocyte distribution width (RBC) [Ratio] 14.1 % See Below [facility] [employer] Work Phone: [phone] Comment on above: Reference Range: 11. 5 - 14.5 Hematocrit (Bld) [Volume fraction] 44.6 % See Below [facility] [employer] Work Phone: [phone] Comment on above: Reference Range: 36. 0 - 46.0 Hemoglobin (Bld) [Mass/Vol] 13.8 g/dL See Below [facility] [employer] Work Phone: [phone] Comment on above: Reference Range: 12. 0 - 16.0 Lymphocytes/100 WBC (Bld) 26.3 % See Below [facility] [employer] Work Phone: [phone] Comment on above: Reference Range: 13. 0 - 44.0 MCHC (RBC) [Mass/Vol] 30.9 g/dL below low threshold See Below [facility] [employer] Work Phone: [phone] Comment on above: Reference Range: 32. 0 - 36.0 MCV (RBC) [Entitic vol] 93 fL 80 - 100 -[facility] [employer] Work Phone: [phone] Monocytes/100 WBC (Bld) 11.7 % 2.0 - 10.0 -[facility] [employer] Work Phone: [phone] Neutrophils/100 WBC (Bld) 56.4 % See Below [facility] [employer] Work Phone: [phone] Comment on above: Reference Range: 40. 0 - 80.0 Platelets (Bld) [#/Vol] 465 10*3/uL above high threshold 150 - 450 -[facility] [employer] Work Phone: [phone] RBC (Bld) [#/Vol] 4.78 {x10E12/L} See Below [facility] [employer] Work Phone: [phone] Comment on above: Reference Range: 4.0 0 - 5.20 WBC (Bld) [#/Vol] 10.7 10*3/uL 4.4 - 11.3 -[facility] [employer] Work Phone: [phone] Complete Blood Count + Differential 0.16 {x10E9/L} above high threshold See Below [facility] [employer] Work Phone: [phone] Comment on above: Reference Range: 0.0 0 - 0.10 Complete Blood Count + Differential 0.42 {x10E9/L} See Below [facility] [employer] Work Phone: [phone] Comment on above: Reference Range: 0.0 0 - 0.70 Complete Blood Count + Differential 1.25 {x10E9/L} above high threshold See Below [facility] [employer] Work Phone: [phone] Comment on above: Reference Range: 0.1 0 - 1.00 Complete Blood Count + Differential 2.81 {x10E9/L} See Below [facility] [employer] Work Phone: [phone] Comment on above: Reference Range: 1.2 0 - 4.80 Complete Blood Count + Differential 6.03 {x10E9/L} See Below [facility] [employer] Work Phone: [phone] Comment on above: Reference Range: 1.2 0 - 7.70 Complete Blood Count + Differential 3.9 % 0.0 - 6.0 [facility] [employer] Work Phone: [phone] Complete Blood Count + Differential 0.2 % 0.0 - 0.9 [facility] Work Phone: [phone] Comment on above: Immature Granulocyte Count (IG) includes promyelocytes, myelocytes and metamyelocytes but does not include bands. Percent differential counts (%) should be interpreted in the context of the absolute cell counts (cells/L). Complete Blood Count + Differential 0.0 {/100_WBC} 0.0-0.0 [facility] Work Phone: Follow Up (Rheumatology)on 11-01-2022 Follow Up (Rheumatology) Diagnoses/Problems Assessed Systemic lupus erythematosus (710.0) (M32.9) Encounter for monitoring of hydroxychloroquine therapy (V58.83,V58.69) (Z51.81,Z79.899) initiated med 2010 Orders Systemic lupus erythematosus Anti-dsDNA (Double Stranded) Antibodies; Status:Active; Requested for:01Nov2022; Perform:Lab Services - Lab To Draw (Blood Test); Due:30Jan2023;Ordered; For:Systemic lupus erythematosus; Ordered By:Maura Lange; C Reactive Protein, Serum; Status:Active; Requested for:01Nov2022; Perform:Lab Services - Lab To Draw (Blood Test); Due:30Jan2023;Ordered; For:Systemic lupus erythematosus; Ordered By:Maura Lange; C3 Complement, Serum; Status:Active; Requested for:01Nov2022; Perform:Lab Services - Lab To Draw (Blood Test); Due:30Jan2023;Ordered; For:Systemic lupus erythematosus; Ordered By:Maura Lange; C4 Complement, Serum; Status:Active; Requested for:01Nov2022; Perform:Lab Services - Lab To Draw (Blood Test); Due:30Jan2023;Ordered; For:Systemic lupus erythematosus; Ordered By:Maura Lange; Complete Blood Count + Differential; Status:Active; Requested for:01Nov2022; Perform:Lab Services - Lab To Draw (Blood Test); Due:30Jan2023;Ordered; For:Systemic lupus erythematosus; Ordered By:Maura Lange; Comprehensive Metabolic Panel; Status:Active; Requested for:01Nov2022; Perform:Lab Services - Lab To Draw (Blood Test); Due:30Jan2023;Ordered; For:Systemic lupus erythematosus; Ordered By:Maura Lange; Sedimentation Rate, Erythrocyte; Status:Active; Requested for:01Nov2022; Perform:Lab Services - Lab To Draw (Blood Test); Due:30Jan2023;Ordered; For:Systemic lupus erythematosus; Ordered By:Maura Lange; Patient Discussion/Summary Patient Education Homegoing instructions You are on chronic plaquenil. Make sure you see your eye doctor yearly--done this summer You are on an anti-inflammatory. Always make sure you take the medication with food. You increase your risk of an ulcer if not taken correctly. Recent studies have shown there is an increased risk of heart attacks and stroke with chronic use. Discontinue if you have suspicious signs. If possible, try to only take this medication on an as needed basis It was a pleasure seeing you today Please call if symptoms worsen Follow up in 6 months If you had labs/xrays done today, we will notify you of your results by phone, mail or through the patient portal. Please call if you don't receive your test results in 7 days Patient Education Homegoing instructions As always, a healthy lifestyle helps chronic diseases. These are all the goals you should strive to achieve to improve your overall health: blood pressure less than 130/85 BMI of 21-29.99 or a waist circumference that is 1/2 of your height fasting blood sugar less than 107 (if you are diabetic, aim for your A1c to be below 6.4% LDL cholesterol below 130 avoid smoking manage your stress see your primary care doctor for preventive exams get your immunizations Provider Impressions lupus on plaquenil. Pt is stable without any new symptoms and no signs of progression. Labs were ordered to assess disease activity Pt to continue to get annual retinal screening exams Gaps in care reviewed and pt is due for ---vaccinations - Chief Complaint lupus follow up History of Present IllnessThe patient is being seen for follow-up of systemic lupus erythematosus. Interval Events: pt reports symptoms are stable Notes some wrist pain but hasn't noted any other symptoms . Associated symptoms: myalgia. Medications: the patient is adherent to her medication regimen, but she denies medication side effects. Review of Systems Constitutional: no fever and not feeling tired. Cardiovascular: no chest pain. Respiratory: no cough and no shortness of breath during exertion. Gastrointestinal: no abdominal pain. Musculoskeletal: arthralgias and joint stiffness, but no joint swelling. Integumentary: no skin rashes. All other systems have been reviewed and are negative for complaint. Active Problems Problems Anemia (285.9) (D64.9) Asplenia (759.0) (Q89.01) Benign essential hypertension (401.1) (I10) Chronic diarrhea (787.91) (K52.9) video endoscopy 2018 Chronic migraine without aura, with intractable migraine, so stated, with status migrainosus (346.73) (G43.711) Class 1 obesity due to excess calories with body mass index (BMI) of 34.0 to 34.9 in adult (278.00,V85.34) (E66.09,Z68.34) DM2 (diabetes mellitus, type 2) (250.00) (E11.9) Encounter for monitoring of hydroxychloroquine therapy (V58.83,V58.69) (Z51.81,Z79.899) initiated med 2010 GERD (gastroesophageal reflux disease) (530.81) (K21.9) Liver hemangioma (228.04) (D18.03) Mixed hyperlipidemia (272.2) (E78.2) 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 Normal [facility] - Chemistry and C hemistry - challengeon 11-01-2022 Albumin BCP dye [Mass/Vol] 4.2 g/dL 3.4 - 5.0 -[facility] [employer] Work Phone: [phone] ALP [Catalytic activity/Vol] 89 U/L 33 - 110 [facility] [phone] ALT With P-5'-P [Catalytic activity/Vol] 13 U/L 7 - 45 -[facility] [employer] Work Phone: [phone] Comment on above: Patients treated wit h Sulfasalazine may generate falsely decreased results for ALT. Anion gap [Moles/Vol] 14 mmol/L 10 - 20 -[facility] [employer] Work Phone: [phone] AST With P-5'-P [Catalytic activity/Vol] 16 U/L 9 - 39 -[facility] [employer] Work Phone: [phone] Bilirubin [Mass/Vol] 0.5 mg/dL 0.0 - 1.2 -[facility] [employer] Work Phone: [phone] Calcium [Mass/Vol] 9.9 mg/dL 8.6 - 10.6 -[facility] [employer] Work Phone: [phone] Chloride [Moles/Vol] 99 mmol/L 98 - 107 -[facility] [employer] Work Phone: [phone] CO2 [Moles/Vol] 30 mmol/L 21 - 32 -[facility] [employer] Work Phone: [phone] Creatinine [Mass/Vol] 0.91 mg/dL See Below -[facility] [employer] Work Phone: [phone] Comment on above: Reference Range: 0.5 0 - 1.05 Glucose [Mass/Vol] 102 mg/dL above high threshold 74 - 99 -[facility] [employer] Work Phone: [phone] Potassium [Moles/Vol] 4.8 mmol/L 3.5 - 5.3 -[facility] [employer] Work Phone: [phone] Protein [Mass/Vol] 7.0 g/dL 6.4 - 8.2 [facility] [employer] Work Phone: [phone] Sodium [Moles/Vol] 138 mmol/L 136 - 145 [facility] Work Phone: [phone] Urea nitrogen [Mass/Vol] 16 mg/dL 6 - 23 -[facility] [employer] Work Phone: [phone] Panel Informationon 11-01 77 {mL/min/1.73m2} >90 [facility] [employer] Work Phone: [phone] Comment on above: CALCULATIONS OF BRANDON MATED GFR ARE PERFORMED USING THE 2020 CKD-EPI STUDY REFIT EQUATION WITHOUT THE RACE VARIABLE FOR THE IDMS-TRACEABLE CREATININE METHODS.https://jasn.asnjournals.org/content/early/ASN. 3646164112 SEDIMENTATION RATE, ERYTHROC YTEon 11-01-2022 SEDIMENTATION RATE, ERYTHROCYTE 35 mm/h High 0 - 20 [facility] Comment on above: Performed By: #### E SRWS #### [facility] [address] [place] [address] Sedimentation Rate, Erythroc yteon 11-01-2022 ESR (Bld) [Velocity] 35 mm/h above high threshold 0 - 20 [facility] [employer] Work Phone: [phone] Tobacco Screening.on 023 Adult depression screening assessment No -[facility] [employer] Work Phone: [phone] Fall risk assessment a) No falls within the last year -[facility] [employer] Work Phone: [phone] Tobacco use status CPHS b) No -[facility] Work Phone: [phone] Office Visit (Internal Medic ine)on 10-10-2022 Follow-up visit Diagnoses/Problems Assessed Hand dermatitis (692.9) (L30.9) Chest pressure (786.59) (R07.89) DM2 (diabetes mellitus, type 2) (250.00) (E11.9) Benign essential hypertension (401.1) (I10) Class 2 severe obesity with serious comorbidity and body mass index (BMI) of 36.0 to 36.9 in adult (278.01,V85.36) (E66.01,Z68.36) Orders Benign essential hypertension Renew: Lisinopril 20 MG Oral Tablet; TAKE 2 TABLETS BY MOUTH ONCE DAILY Rx By: Giselle Boykin; Dispense: 90 Days ; #:180 Tablet; Refill: 3;For: Benign essential hypertension; JONN = N; Verified Transmission to [place] [address]; Last Updated By: [employer]; 10/10/2022 11:03:52 AM Chest pressure IO EKG Electrocardiogram- 12 Lead; Status:Active - Perform Order; Requested for:[id number]; Perform:In Office; Due:[id number];Ordered; For:Chest pressure; Ordered By:Giselle Boykin; DM2 (diabetes mellitus, type 2) Start: Ozempic (0.25 or 0.5 MG/DOSE) 2 MG/3ML Subcutaneous Solution Pen-injector; Inject 0.25 mg weekly for 4 weeks, then increase to 0.5 mg dose Rx By: Giselle Boykin; Dispense: 0 Days ; #:1 X 3 ML Pen; Refill: 1;For: DM2 (diabetes mellitus, type 2); JONN = N; Verified Transmission to [place] [address]; Last Updated By: [employer]; 10/10/2022 11:03:54 AM; COUPON: Available Hand dermatitis Start: Clobetasol Propionate 0.05 % External Cream; APPLY SPARINGLY TO AFFECTED AREA(S) TWICE DAILY Rx By: Giselle Boykin; Dispense: 0 Days ; #:1 X 30 GM Tube; Refill: 0;For: Hand dermatitis; JONN = N; Verified Transmission to [place] [id number]; Last Updated By: [employer]; 10/10/2022 11:03:53 AM Situational anxiety Renew: hydrOXYzine HCl - 25 MG Oral Tablet; TAKE 1 TABLET BY MOUTH TWICE DAILY NEEDED FOR ANXIETY Rx By: Giselle Boykin; Dispense: 0 Days ; #:30 Tablet; Refill: 1;For: Situational anxiety; JONN = N; [facility]; Last Updated By: System, Miproto; 10/10/2022 11:03:52 AM Provider Impressions Chest pressure - EKG in office shows normal sinus rhythm. Patient reassured. Possibly due to anxiety. Follow-up if symptoms worsen or fail to improve. Hypertension - not at goal, increase lisinopril to 40 mg daily. Continue to work on healthy habits. DM2 - trial of Ozempic, will help with blood sugar, but also with weight loss, which in turn will likely help her blood pressure. Hand dermatitis, possibly dyshidrotic eczema - trial of clobetasol cream, advised to use only on the papules and use sparingly. Follow-up in 3 months and as needed. Chief Complaint here for follow up HTN and DM History of Present Illness Occasional dull tightness in chest. Comes and goes. Currently has the feeling. She is not easily able to quantify how long it is lasting. High stress in life - mother in May, cousin 2 weeks ago. 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 Needs refill on hydroxyzine. She has been walking a lot for exercise. She is surprised that her weight is up a few pounds. She is interested in trying Ozempic for diabetes. Also over the last 2 weeks or so, has had some painful bumps on her hands and lower legs. No current flare ups. Has not tried anything topical. Denies any new exposures. Review of Systems Constitutional: no fever and no chills. ENT: no nasal discharge, no sore throat and no hoarseness. Cardiovascular: chest pain, but no palpitations, no lower extremity edema and as noted in HPI. Respiratory: no cough, not coughing up sputum and no wheezing that is consistent with asthma. Gastrointestinal: abdominal pain, nausea and vomiting. Integumentary: skin lesions, but as noted in HPI. Active Problems Problems Abnormal mammogram (793.80) (R92.8) Anemia (285.9) (D64.9) Asplenia (759.0) (Q89.01) Benign essential hypertension (401.1) (I10) Chronic diarrhea (787.91) (K52.9) video endoscopy 2018 Chronic migraine without aura, with intractable migraine, so stated, with status migrainosus (346.73) (G43.711) DM2 (diabetes mellitus, type 2) (250.00) (E11.9) Encounter for monitoring of hydroxychloroquine therapy (V58.83,V58.69) (Z51.81,Z79.899) initiated med 2010 GERD (gastroesophageal reflux disease) (530.81) (K21.9) Liver hemangioma (228.04) (D18.03) Mixed hyperlipidemia (272.2) (E78.2) Nausea and vomiting (787.01) (R11.2) 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 Normal [facility] Tobacco Screening.on 023 Fall risk assessment a) No falls within the last year -[facility] [employer] Work Phone: Tobacco use status CPHS b) No -[facility] [employer] Work Phone: CORONAVIRUS 2019 BY PCRon SARS-CoV-2 (COVID-19) RNA CARLY+probe Ql (Unsp spec) Not detected Normal Not Detected [facility] Comment on above: Result Comment: . This assay is designed to detect the ORF1a/b and E genes of SARS-CoV-2 via nucleic acid amplification. A Not Detected result does not preclude 2019-nCoV infection since the adequacy of sample collection and/or low viral burden may result in presence of viral nucleic acids below the clinical sensitivity of this test method. Fact sheet for providers: https://www.fda.gov/media/356250/download Fact sheet for patients: https://www.fda.gov/media/097559/download This test has received FDA Emergency Use Authorization (EUA) and has been verified for use by [facility] ([facility]). This test is only authorized for the duration of time that circumstances exist to justify the authorization of the emergency use of in vitro diagnostic tests for the detection of SARS-CoV-2 virus and/or diagnosis of COVID-19 infection under section 564(b)(1) of the Act, 21 U.S.C. 360bbb-3(b)(1), unless the authorization is terminated or revoked sooner. [facility] is certified under CLIA-88 as qualified to perform high complexity testing. Testing is performed in the [facility] laboratories located at [address] [place] [address]. Performed By: #### V TDOH #### [address] [place] [address] Covid 19 Resultson 3 SARS-CoV-2 (COVID-19) RNA CARLY+probe Ql (Unsp spec) NEGATIVE COVID-19 Test Coronaviruses are common world-wide and are the cause of many common colds. SARS-COV2 is a new coronavirus that began circulating worldwide in 2019 so we are calling it COVID-19. It has been estimated that four out of five patients with COVID-19 will recover at home without the need for medical attention. Symptoms of COVID-19 may include cough, fever, shortness of breath, loss of taste or smell and other flu-like symptoms including chills, sore muscles, sore throat, and headache. Severe illness is more common in older people and people with other health problems such as high blood pressure, obesity, and immune system problems. If the test is positive, you have COVID-19. You will be contacted by the ordering physicians office and instructed to remain on home isolation, in accordance with CDC guidelines. You may also be contacted by the [place] [facility] to see if any of your close contacts may have been exposed to the virus and need to quarantine. If the test is negative, you likely do not have COVID-19 at this time, but you still may have a different illness that can spread to other people (like Influenza, or the Flu) and could still be at risk for getting COVID-19. We recommend that you stay away from other people to limit the spread of illness until your symptoms are improving and you are fever-free for 24 hours without the use of fever lowering medications such as acetaminophen or ibuprofen. No test is 100% accurate so if you are still concerned you may have COVID-19, talk to your doctor about the need to continue to stay away from others. Medicines Unless your provider told you not to use the following: Acetaminophen (Tylenol and others) is generally safe. Anti-inflammatory medications, such as Ibuprofen (Advil or Motrin) or Naproxen (Aleve) can also be used. Evwo-lgm-vmjgbgt cough and cold medicines can be used according to the instructions on the package. Some mart-wvg-jvbjann medicines also contain acetaminophen. Make sure you are not taking more than your recommended dose. For those not hospitalized, there is no specific treatment available for this illness. Antibiotics do not treat Coronaviruses. Follow-Up Follow up with your doctor by scheduling a virtual visit or consider follow-up at one of our urgent care fever clinics. If you are having difficulty breathing, or are very weak and having difficulty standing, this is a medical emergency. Call 911 or have someone take you to the nearest emergency room immediately. If possible, wear a facemask. Additional guidance from the CDC for patients who tested POSITIVE for COVID-19 How to isolate: Isolate yourself in a specific room at home and limit your contact with others. Use a separate bathroom from other members of the household, when possible. Leave home only to get essential medical care. Do not go to work, school or public areas. Avoid using public transportation, ride-sharing, or taxis. Restrict contact with pets and other animals. If you must care for your pet or be around animals while you are sick, wash your hands before and after your interaction and wear a facemask. Make sure that shared spaces in the home have good airflow, such as by an air conditioner or an opened window, weather permitting. Personal Hygiene Procedures: Wear a face mask when in the same room as other people or pets. If a face mask interferes with your breathing, others should wear a mask when sharing space with you. Frequent hand-washing: wash your hands with soap and water for at least 20 seconds. If soap and water are not available, use alcohol-based hand dental cream maker. Avoid touching your eyes, nose, and mouth with unwashed hands. Household Hygiene Procedures: Avoid sharing personal household items such as dishes, glassware, cups, eating utensils, towels or bedding with other people or pets in your home. After use, these items should be washed with soap and hot water. Disinfect all high-touch surfaces every day with antibacterial cleaning solutions such as Lysol wipes, bleach, cleansers, etc. High-touch surfaces include tabletops, doorknobs, bathroom fixtures, toilets, phones, keyboards, tablets and bedside tables. Immediately clean any surfaces that may have blood, poop or body fluids on them, using antibacterial cleaning solutions such as Lysol wipes, bleach, cleansers, etc. If clothing or bedding come into contact with blood, poop or body fluids, they should be washed immediately. Follow the directions on the laundry detergent and clothing labels but hot water is recommended when possible. Stopping home isolation precautions: If possible, consult your doctor before stopping home isolation precautions. According to the CDC, you can discontinue home isolation precautions when you have met both of these criteria: Your fever and respiratory symptoms have been gone for 24 opal (more content not included)... Normal [facility] CORONAVIRUS 2019 BY PCRon Lab Specimen Source Nasal, Nasopharyngeal Normal [facility] Comment on above: Performed By: #### V TDOH #### [facility] [address] [place] [address] Coronavirus 2019 RNA by PCR, Symptomaticon 08-30-2022 Coronavirus 2019 RNA by PCR, Symptomatic Not detected Normal See Below -[facility] Work Phone: Comment on above: SOURCE: Nasal, Nasop haryngealReference Range: Not Detected.This assay is designed to detect the ORF1a/b and E genes of SARS-CoV-2 via nucleic acid amplification. A Not Detected result does not preclude 2019-nCoV infection since the adequacy of sample collection and/or low viral burden may result in presence of viral nucleic acids below the clinical sensitivity of this test method. Fact sheet for providers: https://www.fda.gov/media/004138/download Fact sheet for patients: https://www.fda.gov/media/785209/download This test has received FDA Emergency Use Authorization (EUA) and has been verified for use by [facility] ([facility]). This test is only authorized for the duration of time that circumstances exist to justify the authorization of the emergency use of in vitro diagnostic tests for the detection of SARS-CoV-2 virus and/or diagnosis of COVID-19 infection under section 564(b)(1) of the Act, 21 U.S.C. 360bbb-3(b)(1), unless the authorization is terminated or revoked sooner.[facility] is certified under CLIA-88 as qualified to perform high complexity testing. Testing is performed in the [facility] laboratories located at [address] [place] [address] Rapid Strepon 08-30-2022 S. pyogenes Ag Ql (Throat) Negative [facility] Work Phone: Office Visit (Internal Medic ine)on 08-30-2022 Follow-up visit Diagnoses/Problems Assessed Sinobronchitis (473.9,490) (J32.9,J40) Sore throat (462) (J02.9) Orders Sinobronchitis Start: Amoxicillin-Pot Clavulanate 875-125 MG Oral Tablet; Take 1 tablet twice daily Rx By: Yasmine Lopez; Dispense: 10 Days ; #:20 Tablet; Refill: 0;For: Sinobronchitis; JONN = N; Ver[facility]; Last Updated By: Rosy Lora; 08/30/2022 3:15:32 PM Start: Promethazine-DM 6.25-15 MG/5ML Oral Syrup (Promethazine-DM); TAKE 5 ML EVERY 4 TO 6 HOURS NEEDED FOR COUGH Rx By: Yasmine Lopez; Dispense: 4 Days ; #:1 X 118 ML Bottle; Refill: 0;For: Sinobronchitis; JONN = N; Verified Transmission to [facility]; Last Updated By: Rosy Lora; 08/30/2022 3:15:32 PM Sore throat Coronavirus 2019 RNA by PCR, Symptomatic; Status:Active - Retrospective Authorization; Requested for:30Aug2022; Perform:Lab Services - Lab To Draw (Non-Blood Test); Due:[id number]; Last Updated By:Graciela Clarke; 08/30/2022 3:37:49 PM;Ordered; For:Sore throat; Ordered By:Yasmine Lopez; IO Rapid Strep; Status:Resulted - Requires Verification,Retrospectiv e Authorization; Done: 30Aug2022 03:14PM Performed:In Office; Due:[id number]; Last Updated By:Lyn Lambert; 08/30/2022 3:15:09 PM;Ordered; For:Sore throat; Ordered By:Yasmine Lopez; Patient Discussion/Summary For upper respiratory infection and cough please start Augmentin 1 tab twice daily. Please complete the entire course of your antibiotic. Even if you start feeling better prior to end of the course, it is important to finish the entire course to ensure that you complete your treatment to reduce risk of recurrence and risk of developing antibiotic resistance. During the day please take Mucinex in a.m.. For cough which is keeping you up at night you may take promethazine-DM. Please ensure that you are keeping up with your fluids. It was a pleasure seeing you today Please call if symptoms worsen If you had labs/ x-rays done today, we will notify you of your results by phone, mail or through the patient portal. Please call if you don't receive your test results in 7 days Patient Education Home going instructions As always, a healthy lifestyle helps chronic diseases and aides in disease prevention. These are all the goals you should strive to achieve to improve your overall health: blood pressure less than 130/85 BMI of 21-29.99 or a waist circumference that is 1/2 of your height fasting blood sugar less than 107 (if you are diabetic, aim for your A1c to be below 6.4% LDL cholesterol below 130 avoid smoking manage your stress see your primary care provider for preventive exams get your immunizations Emergency telephone numbers : If you are having an emergency call 911 , if you want to find out about manager social services available to you dial 211 24 hour hot line telephone numbers: Suicide or Mental Health Mobile Crisis Help Line [phone] Child Abuse or Neglect [phone] Elder Abuse or Neglect [phone] Rape Crisis [phone] Domestic Violence [phone] Narcotics Anonymous [phone] Mobile crisis hotline [phone] ( [facility] ) This medical record has been entered with speech recognition technology. Occasional unintended typographical errors may occur. If there are any questions regarding the accuracy of the content of this note please contact my office directly for clarification. Provider Impressions Sinobronchitis -IO strep-negative -COVID test-today -Start Augmentin 1 p.o. twice daily x10 days -Promethazine DM as needed nightly - Follow-up if symptoms worsen or fail to improve. Chief Complaint possible strep, coughing up mucous History of Present [id number] female presents today with sore throat and productive cough with thick yellow sputum. Daughter, grandson and friend had strep throat. States had strep test in ED done last week which was negative. Discharged to home on supportive measures. Current symptoms sore throat, headache, body aches, chills, fevers over past few days up to 102, nausea, diarrhea (but states this is chronic)- usually has 2 bms per day this has not increased. Denies vomiting- has been taking zofran. COVID test not done. Has been drinking fluids frequently. States this makes throat also feel better. At home taking tylenol without much relief. Review of Systems Constitutional: feeling poorly, fever, chills and feeling tired, but no recent weight gain and no recent weight loss. ENT: sore throat and hoarseness, but no earache and no swollen glands in the neck. Cardiovascular: no chest pain and no tightness or heavy pressure The patient presents with complaints of shortness of breath (yoandy when laying flat ). Respiratory: cough and shortness of breath during exertion. Gastrointestinal: no constipation, no bloody stools, no nausea, no vomiting and no abdominal pain The patient presents with complaints of diarrhea (chronic (more content not included)... Normal [place] Tobacco Screening.on 023 Adult depression screening assessment No [facility] [employer] Work Phone: Fall risk assessment a) No falls within the last year [facility] [employer] Work Phone: Tobacco use status CPHS b) No [facility] [employer] Work Phone: DIGITAL MAMM SCREENING W/ TO [place] 05-11-2022 DIGITAL MAMM SCREENING W/ DALTON Patient Name: CHINA ORTIZ STUDY: DIGITAL MAMM SCREENING W/ DALTON; 05/11/2022 10:02 am ACCESSION NUMBER(S): [id number] ORDERING CLINICIAN: GISELLE BOYKIN INDICATION: Screening. COMPARISON: 04/15/2020 FINDINGS: 2D and tomosynthesis images were reviewed at 1 mm slice thickness. There are areas of scattered fibroglandular tissue. No suspicious masses or calcifications are identified. IMPRESSION: No mammographic evidence of malignancy. BI-RADS CATEGORY: Category: 1 - Negative. Recommendation: 1 Year Screening. For any future breast imaging appointments, please call [phone]). Patient letter sent SNORM Electronically signed by: CELIO HAUSER MD Normal [facility] Mamm - Screening Mammogram w / Tomosynthesison 05-11-2022 MG Breast Screening Normal 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 Nausea and vomiting (787.01) (R11.2) Benign essential hypertension (401.1) (I10) Class 1 obesity due to excess calories with body mass index (BMI) of 34.0 to 34.9 in adult (278.00,V85.34) (E66.09,Z68.34) Orders Liver hemangioma MRI Liver w/wo Contrast; Status:Active; Requested for:[id number]; Perform: Radiology Services Imaging;Ordered; For:Liver hemangioma; Ordered By:Giselle Boykin; Radiologist to Determine Optimal Study : Y Does the patient have a Cochlear Implant, Pacemaker, Defibrilator, Pacing Wire, Brain Aneurysm Clip, Implanted Nerve or Bone Graft Simulator, Implanted Breast Tissue Acetylene Operator, Glucose Monitor, or Neulasta Device? : No Is the patient or breast feeding? : No What are the patient's signs and symptoms? : on recent CT A/P had multiple scattered hepatic hypodensities, largest Right lobe 1.7 cm, possible hemangiomas, however MRI recommended to eval possible metastatic disease Nausea and vomiting Start: Ondansetron HCl - 4 MG Oral Tablet; TAKE 1 TABLET EVERY 6 HOURS NEEDED FOR NAUSEA Rx By: Giselle Boykin; Dispense: 0 Days ; #:30 Tablet; Refill: 1;For: Nausea and vomiting; JONN = N; Verified Transmission to [facility] 0716; Last Updated By: [employer]; 05/08/2022 10:12:38 AM PSH: Pancreatectomy distal subtotal, PMH: Splenectomy Gastroenterology Referral Evaluation and Treatment Evaluate AND Treat Status: Hold For - Scheduling Requested for: [id number] Ordered;For: PSH: Pancreatectomy distal subtotal, PMH: Splenectomy; Ordered By: Giselle Boykin Performed: Due: [id number] Provider Impressions Recurrent RUQ pain with nausea, sometimes vomiting - going on for at least 1 year. Recent ER visit - labs and imaging showed no cause for her symptoms. 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 Also has history of gastritis. Continue PPI Referral to GI. Rx sent for Zofran PRN. Liver hemangiomas - MRI liver ordered to for confirm suspected hemangiomas. Hypertension - at goal, continue current medication. Follow-up as scheduled. Chief Complaint here for follow up hospital History of Present IllnessHere today for hospital follow-up. On 04/18, was driving home and started having severe right upper abdominal pain. Acutely nauseated, had to sample puller to throw up. Made her way home and then daughter drove her to ER at [place]. Given IV fluids, had CT scan, concerned for kidney stone. CT with possible multiple hemangiomas, requires follow-up MRI. Symptoms were treated and she was sent home. She states she gets the pain 7-8 times per day - has been going for "a while," at least 1 year. States that this most recent episode was the most severe. Does not usually throw up. Hospital records reviewed. See above re: CT. Labs unremarkable. Review of Systems Constitutional: no fever and no chills. ENT: no nasal discharge, no sore throat and no hoarseness. Cardiovascular: no chest pain, no palpitations and no lower extremity edema. Respiratory: no cough, not coughing up sputum and no wheezing that is consistent with asthma. Gastrointestinal: abdominal pain, nausea and vomiting, but as noted in HPI. Active Problems Problems Abnormal mammogram (793.80) (R92.8) Anemia (285.9) (D64.9) Asplenia (759.0) (Q89.01) Benign essential hypertension (401.1) (I10) Chronic diarrhea (787.91) (K52.9) video endoscopy 2018 Chronic migraine without aura, with intractable migraine, so stated, with status migrainosus (346.73) (G43.711) Class 1 obesity due to excess calories with body mass index (BMI) of 34.0 to 34.9 in adult (278.00,V85.34) (E66.09,Z68.34) DM2 (diabetes mellitus, type 2) (250.00) (E11.9) Encounter for monitoring of hydroxychloroquine therapy (V58.83,V58.69) (Z51.81,Z79.899) initiated med 2010 GERD (gastroesophageal reflux disease) (530.81) (K21.9) Mixed hyperlipidemia (272.2) (E78.2) 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,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,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) Situational anxiety (300.09) (F41.8) Situational depression (309.0) (F43.21) Systemic lupus erythematosus (710.0) (M32.9) Vitamin D deficiency (268.9) (E55.9) Past Medical History Problems History of ERCP (V45.89) (Z98.890) History of herpes simplex infection (V12.09) (Z86.19) Resolved Date: 16 Oct 2019 History of hyperkalemia (V12.29) (Z86.39) Resolved Date: 28 Apr 2021 History of menorrhagia (V13.29) (Z87.42) Resolved Date: 06 Feb 2020 History of Left breast lump (611.72) (N63.20) Resolved Date: 07 Oct 2014 History of NSAID long-term use (V58.64) (Z79.1) Resolved Date: 13 Nov 2017 History of Pseudotumor cerebri (348.2) (G93.2) Surgical History Problems History of Sec (more content not included)... Normal [place] Tobacco Screening.on 023 Fall risk assessment a) No falls within the last year [facility] [employer] Work Phone: [phone] Tobacco use status CPHS b) No [facility] [employer] Work Phone: ANTI-DNA [DS]on 05-03-2022 ANTI-DNA [DS] <1.0 Normal [facility] [place] Comment on above: Result Comment: REF VALUES NEGATIVE: <= 4 IU/ML EQUIVOCAL: 5- 9 IU/ML POSITIVE: >=10 IU/ML Performed By: #### V TDOH #### [facility] [address] [place] [address] Anti-dsDNA (Double Stranded) Antibodieson 05-03-2022 DNA double strand Ab Qn (S) [IU]/mL [facility] [employer] Work Phone: Comment on above: REF VALUESNEGATIVE: <= 4 IU/MLEQUIVOCAL: 5- 9 IU/MLPOSITIVE: >=10 IU/ML C Reactive Protein, Serumon 05-03-2022 CRP [Mass/Vol] 0.67 mg/dL [facility] [employer] Work Phone: Comment on above: REF VALUE< 1.00 C-REACTIVE PROTEINon 023 C-REACTIVE PROTEIN 0.67 mg/dL Normal [facility] Comment on above: Result Comment: REF VALUE < 1.00 Performed By: #### V TDOH #### [facility] [address] [place] [address] C3 COMPLEMENTon 05-03-2022 C3 COMPLEMENT 139 mg/dL Normal 87 - 200 [facility] [place] Comment on above: Performed By: #### C 3 #### [facility] [address] [place] [address] C3 Complement, Serumon 05-03 Complement C3 [Mass/Vol] 139 mg/dL 87 - 200 [employer] [facility] [employer] Work Phone: C4 COMPLEMENTon 05-03-2022 C4 COMPLEMENT 74 mg/dL High 10 - 50 [facility] [place] Comment on above: Performed By: #### V TDOH #### [facility] [address] [place] [address] C4 Complement, Serumon 05-03 Complement C4 [Mass/Vol] 74 mg/dL above high threshold 10 - 50 [facility] [employer] Work Phone: Follow Up (Rheumatology)on 0 05-03-2022 Follow Up (Rheumatology) Diagnoses/Problems Assessed Systemic lupus erythematosus (710.0) (M32.9) Encounter for monitoring of hydroxychloroquine therapy (V58.83,V58.69) (Z51.81,Z79.899) initiated med 2010 Does not use tobacco (V49.89) (Z78.9) Orders SocHx: Does not use tobacco Tobacco Use Screening; Status:Complete; Done: 03May2022 Perform:Not Applicable;Ordered; For:SocHx: Does not use tobacco; Ordered By:Maura Lange; Systemic lupus erythematosus Anti-dsDNA (Double Stranded) Antibodies; Status:In Progress - Specimen/Data Collected; Done: 03May2022 Perform:Lab Services - Lab To Draw (Blood Test); Due:01Aug2022;Ordered; For:Systemic lupus erythematosus; Ordered By:Maura Lange; Avoid foods and beverages that contain caffeine. These include coffee, manjeet and other soft drinks, chocolate and tea.; Status:Complete; Done: 03May2022 Ordered; For:Systemic lupus erythematosus; Ordered By:Maura Lange; C Reactive Protein, Serum; Status:In Progress - Specimen/Data Collected; Done: 03May2022 Perform:Lab Services - Lab To Draw (Blood Test); Due:01Aug2022;Ordered; For:Systemic lupus erythematosus; Ordered By:Maura Lange; Begin a limited exercise program.; Status:Complete; Done: 03May2022 Ordered; For:Systemic lupus erythematosus; Ordered By:Maura Lange; C3 Complement, Serum; Status:In Progress - Specimen/Data Collected; Done: 03May2022 Perform:Lab Services - Lab To Draw (Blood Test); Due:01Aug2022;Ordered; For:Systemic lupus erythematosus; Ordered By:Maura Lange; Continue with our present treatment plan.; Status:Complete; Done: 03May2022 Ordered; For:Systemic lupus erythematosus; Ordered By:Maura Lange; C4 Complement, Serum; Status:In Progress - Specimen/Data Collected; Done: 03May2022 Perform:Lab Services - Lab To Draw (Blood Test); Due:01Aug2022;Ordered; For:Systemic lupus erythematosus; Ordered By:Maura Lange; Decreasing the stress in your life may help your condition improve.; Status:Complete; Done: 03May2022 Ordered; For:Systemic lupus erythematosus; Ordered By:Maura Lange; Sedimentation Rate, Erythrocyte; Status:In Progress - Specimen/Data Collected; Done: 03May2022 Perform:Lab Services - Lab To Draw (Blood Test); Due:01Aug2022;Ordered; For:Systemic lupus erythematosus; Ordered By:Maura Lange; Limit your use of alcohol to 2 drinks or cans of beer a day.; Status:Complete; Done: 03May2022 Ordered; For:Systemic lupus erythematosus; Ordered By:Maura Lange; Use a sun block product with an SPF of 15 or more.; Status:Complete; Done: 03May2022 Ordered; For:Systemic lupus erythematosus; Ordered By:Maura Lange; Patient Discussion/Summary Patient Education Homegoing instructions You are on chronic plaquenil. Make sure you see your eye doctor yearly--done this summer You are on an anti-inflammatory. Always make sure you take the medication with food. You increase your risk of an ulcer if not taken correctly. Recent studies have shown there is an increased risk of heart attacks and stroke with chronic use. Discontinue if you have suspicious signs. If possible, try to only take this medication on an as needed basis It was a pleasure seeing you today Please call if symptoms worsen Follow up in 6 months If you had labs/xrays done today, we will notify you of your results by phone, mail or through the patient portal. Please call if you don't receive your test results in 7 days Patient Education Homegoing instructions As always, a healthy lifestyle helps chronic diseases. These are all the goals you should strive to achieve to improve your overall health: blood pressure less than 130/85 BMI of 21-29.99 or a waist circumference that is 1/2 of your height fasting blood sugar less than 107 (if you are diabetic, aim for your A1c to be below 6.4% LDL cholesterol below 130 avoid smoking manage your stress see your primary care doctor for preventive exams get your immunizations Provider Impressions Patient seen primarily today for Lupus on Plaquenil therapy. Patient is stable without any clinical signs of disease progression. She does have some other medical issues currently occurring that are awaiting further work-up. Patient is continue on medication and is to continue to get annual retinal screening exams. Labs ordered to assess disease activity. To assess diagnosis and determine treatment plan, the following occurred today ---Prior notes in chart reviewed from colleagues and other specialists; ---Lab and xray tests were reviewed ---Testing was ordered and see order section for details This visit has a moderate risk for morbidity as ---prescription drugs are being prescribed and monitored - Gaps in care reviewed and pt is due for ---vaccinations ---last COVID vaccination: 04/23 Chief Complaint pt here for Lupus follow up-c/o stomach hurting more had to go to ER, did a CT, multiple hypodensities in liver-was advised to f/u with Boykin and get MRI Hi (more content not included)... Normal [employer] SEDIMENTATION RATE, ERYTHROC YTEon 05-03-2022 SEDIMENTATION RATE, ERYTHROCYTE 35 mm/h High 0 - 20 [facility] Comment on above: Performed By: #### E SRWS #### [facility] [address] [place] [address] Sedimentation Rate, Erythroc yteon 05-03-2022 ESR (Bld) [Velocity] 35 mm/h above high threshold 0 - 20 [facility] [employer] Work Phone: Tobacco Screening.on 023 Fall risk assessment b) One or more falls in the last year -[facility] [employer] Work Phone: Tobacco use status CPHS b) No [facility] [employer] Work Phone: HEMOGLOBIN A1Con 04-05-2022 Glucose [Mass/Vol] 143 mg/dL Normal [facility] Comment on above: Performed By: #### V TDOH #### [facility] [address] [place] [address] HbA1c (Bld) [Mass fraction] 6.6 % Abnormal [facility] Comment on above: Result Comment: Diag nosis of Diabetes-Adults Non-Diabetic: < or = 5.6% Increased risk for developing diabetes: 5.7-6.4% Diagnostic of diabetes: > or = 6.5% . Monitoring of Diabetes Age (y) Therapeutic Goal (%) Adults: >18 <7.0 Pediatrics: 13-18 <7.5 7-12 <8.0 0- 6 7.5-8.5 [place]. Diabetes Care 33(S1), Apr 2009. Performed By: #### V TDOH #### [facility] [address] [place] [address] COMPREHENSIVE PANELon 2022 Albumin [Mass/Vol] 4.2 g/dL Normal 3.4 - 5.0 [facility] Comment on above: Performed By: #### C MP #### [facility] [address] [place] [address] ALP [Catalytic activity/Vol] 101 U/L Normal 33 - 110 [facility] Comment on above: Performed By: #### C MP #### [facility] [address] [place] [address] ALT [Catalytic activity/Vol] 10 U/L Normal 7 - 45 [facility] Comment on above: Result Comment: Loretta ents treated with Sulfasalazine may generate falsely decreased results for ALT. Performed By: #### C MP #### [facility] [address] [place] [address] Anion gap [Moles/Vol] 14 mmol/L Normal 10 - 20 [facility] Comment on above: Performed By: #### C MP #### [facility] [address] [place] [address] AST [Catalytic activity/Vol] 15 U/L Normal 9 - 39 [facility] Comment on above: Performed By: #### C MP #### [facility] [address] [place] [address] Bilirubin [Mass/Vol] 0.4 mg/dL Normal 0.0 - 1.2 [facility] Comment on above: Performed By: #### C MP #### [facility] [address] [place] [address] Calcium [Mass/Vol] 9.7 mg/dL Normal 8.6 - 10.6 [facility] Comment on above: Performed By: #### C MP #### [facility] [address] [place] [address] Chloride [Moles/Vol] 104 mmol/L Normal 98 - 107 [facility] Comment on above: Performed By: #### C MP #### [facility] [address] [place] [address] Creatinine [Mass/Vol] 0.93 mg/dL Normal 0.50 - 1.05 [facility] Comment on above: Performed By: #### C MP #### [facility] [address] [place] [address] GFR/1.73 sq M.predicted among non-blacks MDRD (S/P/Bld) [Vol rate/Area] 75 mL/min/{1.73_m2} Normal >90 [facility] Comment on above: Result Comment: CALC ULATIONS OF ESTIMATED GFR ARE PERFORMED USING THE 2020 CKD-EPI STUDY REFIT EQUATION WITHOUT THE RACE VARIABLE FOR THE IDMS-TRACEABLE CREATININE METHODS. https://jasn.asnjournals.org/content//ASN.36600301 88 Performed By: #### C MP #### [facility] [address] [place] [address] Glucose [Mass/Vol] 115 mg/dL High 74 - 99 [facility] Comment on above: Performed By: #### C MP #### [facility] [address] [place] [address] HCO3 (Bld) [Moles/Vol] 27 mmol/L Normal 21 - 32 [facility] Comment on above: Performed By: #### C MP #### [facility] [address] [place] [address] Potassium [Moles/Vol] 5.1 mmol/L Normal 3.5 - 5.3 [facility] Comment on above: Performed By: #### C MP #### [facility] [address] [place] [address] Protein [Mass/Vol] 6.7 g/dL Normal 6.4 - 8.2 [facility] Comment on above: Performed By: #### C MP #### [facility] [address] [place] [address] Sodium [Moles/Vol] 140 mmol/L Normal 136 - 145 [facility] Comment on above: Performed By: #### C MP #### [facility] [address] [place] [address] Urea nitrogen [Mass/Vol] 17 mg/dL Normal 6 - 23 [facility] Comment on above: Performed By: #### C MP #### [facility] [address] [place] [address] Hemoglobin A1Con 04-04-2022 Glucose [Mass/Vol] 143 mg/dL -[facility] [employer] Work Phone: HbA1c (Bld) [Mass fraction] 6.6 % Abnormal -[facility] Work Phone: Comment on above: Diagnosis of Diabete s-Adults Non-Diabetic: < or = 5.6% Increased risk for developing diabetes: 5.7-6.4% Diagnostic of diabetes: > or = 6.5%. Monitoring of Diabetes Age (y) Therapeutic Goal (%) Adults: >18 <7.0 Pediatrics: 13-18 <7.5 7-12 <8.0 0- 6 7.5-8.5 [employer]. Diabetes Care 33(S1), Apr 2009. LIPID PANEL (CORONARY RISK 2 )on 04-04-2022 Cholesterol [Mass/Vol] 182 mg/dL Normal 0 - 199 [facility] Comment on above: Result Comment: . AGE DESIRABLE BORDERLINE HIGH HIGH 0-19 Y 0 - 169 170 - 199 >/= 200 20-24 Y 0 - 189 190 - 224 >/= 225 >24 Y 0 - 199 200 - 239 >/= 240 All ranges are based on fasting samples. Specific therapeutic targets will vary based on patient-specific cardiac risk. . Pediatric guidelines reference:Pediatrics 2011, 128(S5). Adult guidelines reference: NCEP ATPIII Guidelines, RICK 2001, 258:2486-97 . Venipuncture immediately after or during the administration of Metamizole may lead to falsely low results. Testing should be performed immediately prior to Metamizole dosing. Performed By: #### L IPID #### [facility] [address] [place] [address] Cholesterol in HDL [Mass/Vol] 56.7 mg/dL Normal [facility] Comment on above: Result Comment: . AGE VERY LOW LOW NORMAL HIGH 0-19 Y < 35 < 40 40-45 ---- 20-24 Y ---- < 40 >45 ---- >24 Y ---- < 40 40-60 >60 . Performed By: #### L IPID #### [facility] [id number] [place] [address] Cholesterol in LDL [Mass/Vol] 104 mg/dL High 0 - 99 [facility] Comment on above: Result Comment: . NEAR BORD AGE DESIRABLE OPTIMAL HIGH HIGH VERY HIGH 0-19 Y 0 - 109 --- 110-129 >/= 130 ---- 20-24 Y 0 - 119 --- 120-159 >/= 160 ---- >24 Y 0 - 99 100-129 130-159 160-189 >/=190 . Performed By: #### L IPID #### [facility] [id number] [place] [address] Cholesterol in VLDL [Mass/Vol] 21 mg/dL Normal 0 - 40 [facility] Comment on above: Performed By: #### L IPID #### [facility] [id number] [place] [address] Cholesterol.total/C holesterol in HDL [Mass ratio] 3.2 {ratio} Normal [facility] Comment on above: Result Comment: REF VALUES DESIRABLE < 3.4 HIGH RISK > 5.0 Performed By: #### L IPID #### [facility] [id number] [place] [address] Triglyceride [Mass/Vol] 106 mg/dL Normal 0 - 149 [facility] Comment on above: Result Comment: . AGE DESIRABLE BORDERLINE HIGH HIGH VERY HIGH 0 D-90 D 19 - 174 ---- ---- ---- 91 D- 9 Y 0 - 74 75 - 99 >/= 100 ---- 10-19 Y 0 - 89 90 - 129 >/= 130 ---- 20-24 Y 0 - 114 115 - 149 >/= 150 ---- >24 Y 0 - 149 150 - 199 200- 499 >/= 500 . Venipuncture immediately after or during the administration of Metamizole may lead to falsely low results. Testing should be performed immediately prior to Metamizole dosing. Performed By: #### L IPID #### [facility] [id number] [place] [address] Laboratory - Chemistry and C hemistry - challengeon 04-04-2022 Albumin BCP dye [Mass/Vol] 4.2 g/dL 3.4 - 5.0 [facility] [employer] Work Phone: ALP [Catalytic activity/Vol] 101 U/L 33 - 110 [facility] [employer] Work Phone: ALT With P-5'-P [Catalytic activity/Vol] 10 U/L 7 - 45 [facility] [facility] [employer] Work Phone: Comment on above: Patients treated wit h Sulfasalazine may generate falsely decreased results for ALT. Anion gap [Moles/Vol] 14 mmol/L 10 - 20 [facility] [employer] Work Phone: [phone] AST With P-5'-P [Catalytic activity/Vol] 15 U/L 9 - 39 -[facility] [employer] Work Phone: [phone] Bilirubin [Mass/Vol] 0.4 mg/dL 0.0 - 1.2 -[facility] [employer] Work Phone: [phone] Calcium [Mass/Vol] 9.7 mg/dL 8.6 - 10.6 -[facility] [employer] Work Phone: [phone] Chloride [Moles/Vol] 104 mmol/L 98 - 107 -[facility] [employer] Work Phone: [phone] CO2 [Moles/Vol] 27 mmol/L 21 - 32 -[facility] [employer] Work Phone: [phone] Creatinine [Mass/Vol] 0.93 mg/dL See Below -[facility] [employer] Work Phone: [phone] Comment on above: Reference Range: 0.5 0 - 1.05 Glucose [Mass/Vol] 115 mg/dL above high threshold 74 - 99 -[facility] [employer] Work Phone: [phone] Potassium [Moles/Vol] 5.1 mmol/L 3.5 - 5.3 -[facility] [employer] Work Phone: [phone] Protein [Mass/Vol] 6.7 g/dL 6.4 - 8.2 -[facility] [employer] Work Phone: [phone] Sodium [Moles/Vol] 140 mmol/L 136 - 145 -[facility] [employer] Work Phone: [phone] Urea nitrogen [Mass/Vol] 17 mg/dL 6 - 23 [facility]: [phone] Lipid Panelon 04-04-2022 Cholesterol [Mass/Vol] 182 mg/dL 0 - 199 -[facility] Work Phone: Comment on above: . AGE DESIRABLE BORD LIBAN HIGH HIGH 0-19 Y 0 - 169 170 - 199 >/= 200 20-24 Y 0 - 189 190 - 224 >/= 225 >24 Y 0 - 199 200 - 239 >/= 240 All ranges are based on fasting samples. Specific therapeutic targets will vary based on patient-specific cardiac risk.. Pediatric guidelines reference:Pediatrics 2011, 128(S5). Adult guidelines reference: NCEP ATPIII Guidelines, RICK 2001, 258:2486-97. Venipuncture immediately after or during the administration of Metamizole may lead to falsely low results. Testing should be performed immediately prior to Metamizole dosing. Cholesterol in HDL [Mass/Vol] 56.7 mg/dL [employer] [facility] [employer] Work Phone: [phone] Comment on above: . AGE VERY LOW LOW N ORMAL HIGH 0-19 Y < 35 < 40 40-45 ---- 20- 24 Y ---- < 40 >45 ---- >24 Y ---- < 40 40-60 >60. Cholesterol in LDL [Mass/Vol] 104 mg/dL above high threshold 0 - 99 [employer] [facility] [employer] Work Phone: [phone] Comment on above: . NEAR BORD AGE JOHNATHON RABLE OPTIMAL HIGH HIGH VERY HIGH 0-19 Y 0 - 109 --- 110-129 >/= 130 ---- 20-24 Y 0 - 119 --- 120-159 >/= 160 ---- >24 Y 0 - 99 100-129 130-159 160-189 >/=190. Cholesterol.total/C holesterol in HDL [Mass ratio] 3.2 {ratio} [employer] [facility] [employer] Work Phone: Comment on above: REF VALUESDESIRABLE < 3.4HIGH RISK > 5.0 Triglyceride [Mass/Vol] 106 mg/dL 0 - 149 [employer] [facility] [employer] Work Phone: Comment on above: . AGE DESIRABLE BORD LIBAN HIGH HIGH VERY HIGH 0 D-90 D 19 - 174 ---- ---- ----91 D- 9 Y 0 - 74 75 - 99 >/= 100 ---- 10-19 Y 0 - 89 90 - 129 >/= 130 ---- 20-24 Y 0 - 114 115 - 149 >/= 150 ---- >24 Y 0 - 149 150 - 199 200- 499 >/= 500. Venipuncture immediately after or during the administration of Metamizole may lead to falsely low results. Testing should be performed immediately prior to Metamizole dosing. Lipid Panel 21 mg/dL 0 - 40 [facility] [employer] Work Phone: No Panel Informationon 04-04 75 {mL/min/1.73m2} >90 [facility] [employer] Work Phone: Comment on above: CALCULATIONS OF BRANDON MATED GFR ARE PERFORMED USING THE 2020 CKD-EPI STUDY REFIT EQUATION WITHOUT THE RACE VARIABLE FOR THE IDMS-TRACEABLE CREATININE METHODS.https://jasn.asnjournals.org/content//ASN. 7036949018 Office Visit (Internal Medic ine)on 04-04-2022 Follow-up visit Diagnoses/Problems Assessed DM2 (diabetes mellitus, type 2) (250.00) (E11.9) Vitamin D deficiency (268.9) (E55.9) Mixed hyperlipidemia (272.2) (E78.2) Benign essential hypertension (401.1) (I10) Class 2 severe obesity with serious comorbidity and body mass index (BMI) of 35.0 to 35.9 in adult (278.01,V85.35) (E66.01,Z68.35) Encounter for screening mammogram for malignant neoplasm of breast (V76.12) (Z12.31) Not currently employed [employer] Orders DM2 (diabetes mellitus, type 2), Mixed hyperlipidemia, Vitamin D deficiency Comprehensive Metabolic Panel; Status:In Progress - Specimen/Data Collected; Done: 04Apr2022 Perform:Lab Services - Lab To Draw (Blood Test); Due:03Jul2022;Ordered; For:DM2 (diabetes mellitus, type 2), Mixed hyperlipidemia, Vitamin D deficiency; Ordered By:Giselle Boykin; Hemoglobin A1C; Status:In Progress - Specimen/Data Collected; Done: 04Apr2022 Perform:Lab Services - Lab To Draw (Blood Test); Due:03Jul2022;Ordered; For:DM2 (diabetes mellitus, type 2), Mixed hyperlipidemia, Vitamin D deficiency; Ordered By:Giselle Boykin; Lipid Panel; Status:In Progress - Specimen/Data Collected; Done: 04Apr2022 Perform:Lab Services - Lab To Draw (Blood Test); Due:03Jul2022;Ordered; For:DM2 (diabetes mellitus, type 2), Mixed hyperlipidemia, Vitamin D deficiency; Ordered By:Giselle Boykin; Vitamin D 25-Hydroxy; Status:In Progress - Specimen/Data Collected; Done: 04Apr2022 Perform:Lab Services - Lab To Draw (Blood Test); Due:03Jul2022;Ordered; For:DM2 (diabetes mellitus, type 2), Mixed hyperlipidemia, Vitamin D deficiency; Ordered By:Giselle Boykin; DM2 (diabetes mellitus, type 2), Need for pneumococcal vaccination Administer: Prevnar 20 0.5 ML Intramuscular Suspension Prefilled Syringe; INJECT 0.5 ML Intramuscular; To Be Done: 04Apr2022 For: DM2 (diabetes mellitus, type 2), Need for pneumococcal vaccination; Ordered By:Giselle Boykin; Effective Date:04Apr2022 Encounter for screening mammogram for malignant neoplasm of breast, SocHx: Not currently employed Mamm - Screening Mammogram w/ Tomosynthesis; Status:Hold For - Scheduling; Requested for:04Apr2022; Perform: Radiology Services Imaging; Due:03Jul2022;Ordered; For:Encounter for screening mammogram for malignant neoplasm of breast, SocHx: Not currently employed; Ordered By:Giselle Boykin; Radiologist to Determine Optimal Study : Y What are the patient's signs and symptoms ? : Annual Screening Mammogram Provider Impressions DM2 - Check A1c. Urine albumin 08/24/20, 09/14/21. Continue current medication, healthy diet, and regular exercise. Hypertension - BP is OK. Continue current medication. Check CMP. Mixed hyperlipidemia - continue statin, check FLP. Vitamin D deficiency - check level, replace as necessary. Depression, Situational anxiety - continue current medications. Mammogram 05/11/20, ordered for 2022. Prevnar 20 recommended on basis of underlying diabetes and lupus. Shingrix is also recommended. I tried searching [place] Medicaid's website regarding coverage of these vaccines, but nothing came up on the search. Encouraged her to call her insurance to check on coverage - may be better for her to get at pharmacy. Follow-up in 6 months and as needed. Chief Complaint here for follow up HTN, DM and cholesterol History of Present IllnessDoing well on current medications. Fasting for labs. Does not check her blood sugar at home. She would like to get Prevnar and Shingrix vaccines. Review of Systems Constitutional: no fever and no chills. ENT: no nasal discharge, no sore throat and no hoarseness. Cardiovascular: no chest pain, no palpitations and no lower extremity edema. Respiratory: no cough, not coughing up sputum and no wheezing that is consistent with asthma. Gastrointestinal: no abdominal pain, no constipation, no melena, no nausea and no diarrhea. Musculoskeletal: arthralgias and myalgias. Integumentary: no skin rashes. Neurological: no headache. Active Problems Problems Abnormal mammogram (793.80) (R92.8) Anemia (285.9) (D64.9) Asplenia (759.0) (Q89.01) Benign essential hypertension (401.1) (I10) Chronic diarrhea (787.91) (K52.9) video endoscopy 2018 Chronic migraine without aura, with intractable migraine, so stated, with status migrainosus (346.73) (G43.711) Class 2 severe obesity with serious comorbidity and body mass index (BMI) of 35.0 to 35.9 in adult (278.01,V85.35) (E66.01,Z68.35) DM2 (diabetes mellitus, type 2) (250.00) (E11.9) Encounter for monitoring of hydroxychloroquine therapy (V58.83,V58.69) (Z51.81,Z79.899) initiated med 2010 GERD (gastroesophageal reflux disease) (530.81) (K21.9) Mixed hyperlipidemia (272.2) (E78.2) 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 Normal [place] Tobacco Screening.on 023 Fall risk assessment b) One or more falls in the last year [facility] [employer] Work Phone: Tobacco use status [facility]PHS b) No [facility] [employer] Work Phone: VITAMIN D, 25-HYDROXYon VITAMIN D, 25-HYDROXY 22 ng/mL Abnormal [facility] Comment on above: Result Comment: . DEFICIENCY: < 20 NG/ML INSUFFICIENCY: 20-29 NG/ML SUFFICIENCY: 30-100 NG/ML THIS ASSAY ACCURATELY QUANTIFIES THE SUM OF VITAMIN D3, 25-HYDROXY AND VIT D2,25-HYDROXY. Performed By: #### V TDOH #### [facility] [id number] [place] [address] Vitamin D 25-Hydroxyon 04-04 25-hydroxyvitamin D3 [Mass/Vol] 22 ng/mL Abnormal [facility] [employer] Work Phone: Comment on above: .DEFICIENCY: < 20 NG /MLINSUFFICIENCY: 20-29 NG/MLSUFFICIENCY: 30-100 NG/MLTHIS ASSAY ACCURATELY QUANTIFIES THE SUM OFVITAMIN D3, 25-HYDROXY AND VIT D2,25-HYDROXY. Rogelio 01-02-2022 ANASTASIIA Telephone (WALKWA) ----- CHINA ORTIZ ([id number]) 1970 F Date Time Provider Department 01/02/22 KOBY BRAUN During your visit today, we recorded the following information about you: Aurelia Cal 01/02/2022 5:45 PM Signed China called and she asked about her test results from 12/31, told negative for everything. She understands. She said she is feeling much worse, she said she feels very tired and she is getting short of breath with exertion if she has to walk from room to room. She has coughed so hard she has vomited two times today. Can someone please advise her on what she can do? Thank you, Aurelia Calsaulo Ren Ma 01/02/2022 5:51 PM Signed Patient is asking for something else for her cough and nausea. Please send to [facility] in [place]. Shama Irizarry APRN.MIGUELINA 01/02/2022 5:57 PM Signed Zofran interacts with lexapro and hydroxychloroquine. Rx phenergan and tessalon to pharmacy. Shama Irizarry APRN.MIGUELINA 01/02/2022 5:58 PM Signed Addended by: SHAMA IRIZARRY on: 01/02/2022 05:58 PM Modules accepted: Orders Allergies As of Date: 01/02/2022 Noted Allergy Reaction OPIOIDS - MORPHINE ANALOGUES 03/30/2004 2 - Rash 11 - Vomiting Comments: dilaudid SULFAMETHOXAZOLE-TRIMETHO PRIM 05/20/2016 14 - Other: See Comments Comments: blisters HYDROMORPHONE HCL 10/21/2015 11 - Vomiting 2 - Rash Date Reviewed: 12/31/2021 Reviewed by: Koby Braun APRN.[employer] DUTY MANAGER - Fully Assessed Reason for Visit: Patient Question [1101] Order(s):benzonatate (TESSALON PERLES) 100 mg capsuleTake 2 capsules by mouth every 8 hours as needed.Disp: 60 capsuleRfl: 0 promethazine (PHENERGAN) 25 mg tabletTake 1 tablet by mouth every 8 hours as needed for nausea/vomiting. Do NOT take hydroxyzine with this medication.Disp: 12 tabletRfl: 0 Prescriptions as of 01/02/2022 - benzonatate (TESSALON PERLES) 100 mg capsule Take 2 capsules by mouth every 8 hours as needed. - promethazine (PHENERGAN) 25 mg tablet Take 1 tablet by mouth every 8 hours as needed for nausea/vomiting. Do NOT take hydroxyzine with this medication. - hydrOXYzine HCl (ATARAX) 25 mg tablet Take 25 mg by mouth twice daily as needed. - zonisamide (ZONEGRAN) 100 mg capsule Take 300 mg by mouth daily at bedtime. - omeprazole (PRILOSEC) 40 mg capsule Take 40 mg by mouth once daily. - escitalopram oxalate (LEXAPRO) 20 mg tablet Take 20 mg by mouth once daily. - metFORMIN (GLUCOPHAGE) 500 mg tablet Take 500 mg by mouth twice daily. - rizatriptan (MAXALT) 10 mg tablet Take 10 mg by mouth. - rosuvastatin (CRESTOR) 5 mg tablet Take 5 mg by mouth daily at bedtime. - guaiFENesin (MUCINEX) 600 mg 12 hr tablet Take 1 tablet by mouth twice daily as needed. - PENICILLIN V POTASSIUM ORAL Take 500 mg by mouth four times daily. - diclofenac, EC, (VOLTAREN) 75 mg EC tablet Take 75 mg by mouth twice daily. - lisinopril (ZESTRIL, PRINIVIL) 20 mg tablet Take 20 mg by mouth once daily. - metoprolol succinate ER (TOPROL XL) 50 mg 24 hr tablet Take 50 mg by mouth once daily. - hydroxychloroquine (PLAQUENIL) 200 mg tablet Take 200 mg by mouth twice daily. - ALPRAZolam (XANAX) 0.5 mg tablet Take 0.5 mg by mouth three times daily as needed. Problem List As Of Date 01/02/2022 Noted Resolved PANCREAT CYST/PSEUDOCYST [K86.2, K86.3] 01/22/2003 ACUTE PANCREATITIS [K85.90] 01/22/2003 COMMON MIGRAINE [346.1] 01/22/2003 FAMILY HX-DIABETES MELLITUS [Z83.3] 01/22/2003 Migraine [G43.909] 06/17/2009 UTI (urinary tract infection) [N39.0] 11/10/2015 Lupus (HCC) [M32.9] 11/10/2015 Essential hypertension [I10] 11/10/2015 Prescriptions ordered this encounter Disp Refills Start End BENZONATATE 100 MG CAPSULE 60 c* 0 01/02/2022 Route: ORAL Sig: Take 2 capsules by mouth every 8 hours as needed. PROMETHAZINE 25 MG TABLET 12 t* 0 01/02/2022 Route: ORAL Sig: Take 1 tablet by mouth every 8 hours as needed for nausea/vomiting. Do NOT take hydroxyzine with this medication. Medications Discontinued During This Encounter Prescriptions - ondansetron orally disintegrating (ZOFRAN ODT) 4 mg disintegrating tablet (Discontinued) Take 1 tablet by mouth every 4 hours as needed for Nausea/Vomiting. Encounter Status:Closed by AURELIA VILCHIS on 01/02/22 [facility] CNOVon 12-31-2021 CNOV Office Visit (WALKWA ) ----- CHINA ORTIZ ([id number]) 1970 F Date Time Provider Department 12/31/21 12:45 PM KOBY BRAUN During your visit today, we recorded the following information about you: Temperature Pulse Respiration Blood pressure 98.7 degrees 99/minute 18/minute 130/85 Weight 91.2 kg Koby Braun APRN.CNP 12/31/2021 2:26 PM Signed This note was created using Relypsariter. Subjective China Ortiz is a 51 year old female with pmh of PAST MEDICAL HISTORY Diagnosis Date Acute pancreatitis 09/2002 3 previous bouts Cyst and pseudocyst of pancreas 2002 Family history of diabetes mellitus Lupus (HCC) Migraine without aura Presents to [facility] of cough and congestion Patient complains of cough and congestion Onset 2 days ago Associated symptoms: sore throat, wheezing, sinus pressure, DANIEL, body aches. No alleviating or aggravating factors Her grandson is ill with similar symptoms She has mostly clear phlegm Denies difficulty breathing, CP, fever, chills, night sweats,, GI disturbances, edema (see ROS) Review of Systems Constitutional: Positive for fatigue. Negative for chills and fever. HENT: Positive for sinus pressure, sinus pain and sore throat. Negative for trouble swallowing. Respiratory: Positive for cough and wheezing. Negative for chest tightness and shortness of breath. Cardiovascular: Negative for chest pain and palpitations. Gastrointestinal: Negative for abdominal pain, constipation, diarrhea, nausea and vomiting. Musculoskeletal: Positive for arthralgias and myalgias. Skin: Negative for rash and wound. Neurological: Positive for headaches. Negative for dizziness. Psychiatric/Behavioral: Negative. Objective BP 130/85 Pulse 99 Temp 37.1 ?C (98.7 ?F) (Tympanic) Resp 18 Wt 91.2 kg (201 lb) LMP 11/03/2015 (Approximate) SpO2 97% BMI 36.76 kg/m? Physical Exam Constitutional: General: She is not in acute distress. HENT: Nose: Rhinorrhea present. No congestion. Mouth/Throat: Mouth: Mucous membranes are moist. Pharynx: Posterior oropharyngeal erythema present. No oropharyngeal exudate. Cardiovascular: Rate and Rhythm: Normal rate and regular rhythm. Pulses: Normal pulses. Heart sounds: Normal heart sounds. Pulmonary: Effort: Pulmonary effort is normal. No respiratory distress. Breath sounds: Normal breath sounds. No wheezing or rales. Abdominal: Palpations: Abdomen is soft. Tenderness: There is no abdominal tenderness. Musculoskeletal: General: No swelling or tenderness. Skin: General: Skin is warm and dry. Findings: Erythema: x. Neurological: General: No focal deficit present. Mental Status: She is alert and oriented to person, place, and time. Psychiatric: Mood and Affect: Mood normal. Behavior: Behavior normal. Assessment and Plan ASSESSMENT/PLAN: 1. Acute cough - ICD9: 786.2, ICD10: R05.1 (primary diagnosis) Likely from viral etiology see#3 Will get covid/flu/RSV - COVID WITH FLUA+B, ROUTINE 2. Sore throat - ICD9: 462, ICD10: J02.9 - suspect viral - Rapid Strep negative in the office today - Discussed supportive care treatment with fluids, rest and analgesia. - RAPID STREP TEST B/O 3. Viral URI with cough - ICD9: 465.9, ICD10: J06.9 - Discussed viral etiology and rationale for treatment. - Symptomatic treatment with prn analgesia - Supportive care with fluids and rest - GUAIFENESIN ER 600 MG TABLET, EXTENDED RELEASE 12 HR Koby Braun APRN.[employer] D[employer] MANAGER Referring Provider: SELF [200] Allergies As of Date: 12/31/2021 Noted Allergy Reaction OPIOIDS - MORPHINE ANALOGUES 03/30/2004 2 - Rash 11 - Vomiting Comments: dilaudid SULFAMETHOXAZOLE-TRIMETHO PRIM 05/20/2016 14 - Other: See Comments Comments: blisters HYDROMORPHONE HCL 10/21/2015 11 - Vomiting 2 - Rash Date Reviewed: 12/31/2021 Reviewed by: Koby Braun APRN.[employer] D[employer]Y MANAGER - Fully Assessed Primary Visit Diagnosis:Acute cough [R05.1] Other Visit Diagnoses:Sore throat [J02.9] Viral URI with cough [J06.9] Order(s):RAPID STREP TEST B/O [[id number]] Order #: [id number] COVID WITH FLUA+B, ROUTINE [SQCOVFLU] Order #: [id number]. #:[id number] STREP A MOLECULAR (POC) [[id number]] Order #: [id number]. #:[id number] 64-LAB guaiFENesin (MUCINEX) 600 mg 12 hr tabletTake 1 tablet by mouth twice daily as needed.Disp: 30 tabletRfl: 0 Prescriptions as of 12/31/2021 - hydrOXYzine HCl (ATARAX) 25 mg tablet Take 25 mg by mouth twice daily as needed. - zonisamide (ZONEGRAN) 100 mg capsule Take 300 mg by mouth daily at bedtime. - omeprazole (PRILOSEC) 40 mg capsule Take 40 mg by mouth once daily. - escitalopram oxalate (LEXAPRO) 20 mg tablet Take 20 mg by mouth once daily. - metFORMIN (GLUCOPHAGE) 500 mg tablet Take 500 mg by mouth twice daily. - rizatriptan (MAXALT) 10 mg tablet Take 10 mg by mouth. (more content not included)... Normal [facility] STREP A MOLECULAR (POC)on Procedural Control Valid [facility] Strep A (POCT) Negative Negative [facility] ALT - Alanine Aminotransfera se, Serumon 10-27-2021 ALT With P-5'-P [Catalytic activity/Vol] 10 U/L 7 - 45 [employer] Work Phone: Comment on above: Patients treated wit h Sulfasalazine may generate falsely decreased results for ALT. Anti-dsDNA (Double Stranded) Antibodieson 10-27-2021 DNA double strand Ab Qn (S) [IU]/mL [employer] Work Phone: [phone] Comment on above: REF VALUESNEGATIVE: <= 4 IU/MLEQUIVOCAL: 5- 9 IU/MLPOSITIVE: >=10 IU/ML Blood Urea Nitrogen, Serumon 10-27-2021 Urea nitrogen [Mass/Vol] 14 mg/dL 6 - 23 -[facility] [employer] Work Phone: [phone] C Reactive Protein, Serumon 10-27-2021 CRP [Mass/Vol] 0.60 mg/dL [facility] [employer] Work Phone: [phone] Comment on above: REF VALUE< 1.00 C3 Complement, Serumon 10-27 Complement C3 [Mass/Vol] 160 mg/dL 87 - 200 [facility] [employer] Work Phone: [phone] C4 Complement, Serumon 10-27 Complement C4 [Mass/Vol] 71 mg/dL above high threshold 10 - 50 -[facility] [employer] Work Phone: [phone] Complete Blood Count + Diffe rentialon 10-27-2021 Basophils/100 WBC (Bld) 1.8 % 0.0 - 2.0 [facility] [employer] Work Phone: [phone] Erythrocyte distribution width (RBC) [Ratio] 14.6 % above high threshold See Below [facility] [employer] Work Phone: [phone] Comment on above: Reference Range: 11. 5 - 14.5 Hematocrit (Bld) [Volume fraction] 45.5 % See Below [facility] [employer] Work Phone: [phone] Comment on above: Reference Range: 36. 0 - 46.0 Hemoglobin (Bld) [Mass/Vol] 14.1 g/dL See Below [facility] [employer] Work Phone: [phone] Comment on above: Reference Range: 12. 0 - 16.0 Lymphocytes/100 WBC (Bld) 26.8 % See Below [facility] [employer] Work Phone: [phone] Comment on above: Reference Range: 13. 0 - 44.0 MCHC (RBC) [Mass/Vol] 31.0 g/dL below low threshold See Below [facility] [employer] Work Phone: [phone] Comment on above: Reference Range: 32. 0 - 36.0 MCV (RBC) [Entitic vol] 97 fL 80 - 100 -[facility] [employer] Work Phone: [phone] Monocytes/100 WBC (Bld) 11.1 % 2.0 - 10.0 -[facility] [employer] Work Phone: [phone] Neutrophils/100 WBC (Bld) 55.8 % See Below -[facility] [employer] Work Phone: [phone] Comment on above: Reference Range: 40. 0 - 80.0 Platelets (Bld) [#/Vol] 486 10*3/uL above high threshold 150 - 450 -[facility] [employer] Work Phone: [phone] RBC (Bld) [#/Vol] 4.70 {x10E12/L} See Below [facility] [employer] Work Phone: [phone] Comment on above: Reference Range: 4.0 0 - 5.20 WBC (Bld) [#/Vol] 10.1 10*3/uL 4.4 - 11.3 -[facility] [employer] Work Phone: [phone] Complete Blood Count + Differential 0.18 {x10E9/L} above high threshold See Below [facility] [employer] Work Phone: [phone] Comment on above: Reference Range: 0.0 0 - 0.10 Complete Blood Count + Differential 0.38 {x10E9/L} See Below [facility] [employer] Work Phone: [phone] Comment on above: Reference Range: 0.0 0 - 0.70 Complete Blood Count + Differential 1.12 {x10E9/L} above high threshold See Below [facility] [employer] Work Phone: [phone] Comment on above: Reference Range: 0.1 0 - 1.00 Complete Blood Count + Differential 2.70 {x10E9/L} See Below [facility] [employer] Work Phone: [phone] Comment on above: Reference Range: 1.2 0 - 4.80 Complete Blood Count + Differential 5.63 {x10E9/L} See Below [facility] [employer] Work Phone: [phone] Comment on above: Reference Range: 1.2 0 - 7.70 Complete Blood Count + Differential 3.8 % 0.0 - 6.0 [facility] [employer] Work Phone: [phone] Complete Blood Count + Differential 0.7 % 0.0 - 0.9 [facility]: [phone] Comment on above: Immature Granulocyte Count (IG) includes promyelocytes, myelocytes and metamyelocytes but does not include bands. Percent differential counts (%) should be interpreted in the context of the absolute cell counts (cells/L). Complete Blood Count + Differential 0.0 {/100_WBC} 0.0-0.0 [facility] [employer] Work Phone: [phone] Creatinine, Serumon 10-28-19 22 Creatinine [Mass/Vol] 1.00 mg/dL See Below [facility] Work Phone: [phone] Comment on above: Reference Range: 0.5 0 - 1.05 Creatinine, Serum 69 {mL/min/1.73m2} >90 [facility] [employer] Work Phone: [phone] Comment on above: CALCULATIONS OF BRANDON MATED GFR ARE PERFORMED USING THE 2020 CKD-EPI STUDY REFIT EQUATION WITHOUT THE RACE VARIABLE FOR THE IDMS-TRACEABLE CREATININE METHODS.https://jasn.asnjournals.org/content//ASN. 4231078449 Laboratory - Chemistry and C hemistry - challengeon 10-27-2021 AST With P-5'-P [Catalytic activity/Vol] 16 U/L 9 - 39 [facility] Phone: [phone] Sedimentation Rate, Erythroc yteon 10-27-2021 ESR (Bld) [Velocity] 20 mm/h 0 - 20 -[facility] [employer] Work Phone: [phone] Tobacco Screening.on 022 Adult depression screening assessment No -[facility] [employer] Work Phone: [phone] Fall risk assessment a) No falls within the last year -[facility] [employer] Work Phone: [phone] Tobacco use status CPHS b) No -[facility] [employer] Work Phone: [phone] Hemoglobin A1Con 09-14-2021 Glucose [Mass/Vol] 140 mg/dL -[facility] [employer] Work Phone: [phone] HbA1c (Bld) [Mass fraction] 6.5 % Abnormal -[facility] [employer] Work Phone: [phone] Comment on above: Diagnosis of Diabete s-Adults Non-Diabetic: < or = 5.6% Increased risk for developing diabetes: 5.7-6.4% Diagnostic of diabetes: > or = 6.5%. Monitoring of Diabetes Age (y) Therapeutic Goal (%) Adults: >18 <7.0 Pediatrics: 13-18 <7.5 7-12 <8.0 0- 6 7.5-8.5 [place]. Diabetes Care 33(S1), Apr 2009. Laboratory - Chemistry and C hemistry - challengeon 09-14-2021 Albumin BCP dye [Mass/Vol] 4.5 g/dL 3.4 - 5.0 -[facility] [employer] Work Phone: [phone] Albumin Ql (U) 47.7 mg/L See Below -[facility] [employer] Work Phone: [phone] Comment on above: Reference Range: Not Established Albumin/Creatinine DL <= 20 mg/L (U) [Mass ratio] 9.3 {ug/mg_crt} 0.0 - 30.0 -[facility] [employer] Work Phone: [phone] ALP [Catalytic activity/Vol] 115 U/L above high threshold 33 - 110 -[facility] [employer] Work Phone: [phone] ALT With P-5'-P [Catalytic activity/Vol] 14 U/L 7 - 45 -[facility] Phone: [phone] Comment on above: Patients treated wit h Sulfasalazine may generate falsely decreased results for ALT. Anion gap [Moles/Vol] 15 mmol/L 10 - 20 -[facility] [employer] Work Phone: [phone] AST With P-5'-P [Catalytic activity/Vol] 16 U/L 9 - 39 -[facility] [employer] Work Phone: [phone] Bilirubin [Mass/Vol] 0.5 mg/dL 0.0 - 1.2 -[facility] [employer] Work Phone: [phone] Calcium [Mass/Vol] 10.2 mg/dL 8.6 - 10.6 -[facility] [employer] Work Phone: [phone] Chloride [Moles/Vol] 106 mmol/L 98 - 107 -[facility] [employer] Work Phone: [phone] CO2 [Moles/Vol] 24 mmol/L 21 - 32 -[facility] [employer] Work Phone: [phone] Creatinine (U) [Mass/Vol] 512.0 mg/dL above high threshold See Below -[facility] [employer] Work Phone: [phone] Comment on above: Reference Range: 20. 0 - 320.0 Creatinine [Mass/Vol] 1.19 mg/dL above high threshold See Below -[facility] [employer] Work Phone: [phone] Comment on above: Reference Range: 0.5 0 - 1.05 Glucose [Mass/Vol] 102 mg/dL above high threshold 74 - 99 -[facility] [employer] Work Phone: [phone] Potassium [Moles/Vol] 4.8 mmol/L 3.5 - 5.3 -[facility] [employer] Work Phone: [phone] Protein [Mass/Vol] 7.2 g/dL 6.4 - 8.2 -[facility] [employer] Work Phone: [phone] Sodium [Moles/Vol] 140 mmol/L 136 - 145 -[facility] Work Phone: [phone] Urea nitrogen [Mass/Vol] 19 mg/dL 6 - 23 [facility] Work Phone: [phone] Lipid Panelon 09-14-2021 Cholesterol [Mass/Vol] 173 mg/dL 0 - 199 [facility]: [phone] Comment on above: . AGE DESIRABLE BORD LIBAN HIGH HIGH 0-19 Y 0 - 169 170 - 199 >/= 200 20-24 Y 0 - 189 190 - 224 >/= 225 >24 Y 0 - 199 200 - 239 >/= 240 All ranges are based on fasting samples. Specific therapeutic targets will vary based on patient-specific cardiac risk.. Pediatric guidelines reference:Pediatrics 2011, 128(S5). Adult guidelines reference: NCEP ATPIII Guidelines, RICK 2001, 258:2486-97. Venipuncture immediately after or during the administration of Metamizole may lead to falsely low results. Testing should be performed immediately prior to Metamizole dosing. Cholesterol in HDL [Mass/Vol] 53.2 mg/dL [facility] Work Phone: [phone] Comment on above: . AGE VERY LOW LOW N ORMAL HIGH 0-19 Y < 35 < 40 40-45 ---- 20- 24 Y ---- < 40 >45 ---- >24 Y ---- < 40 40-60 >60. Cholesterol in LDL [Mass/Vol] 86 mg/dL 0 - 99 [facility] [employer] Work Phone: [phone] Comment on above: . NEAR BORD AGE JOHNATHON RABLE OPTIMAL HIGH HIGH VERY HIGH 0-19 Y 0 - 109 --- 110-129 >/= 130 ---- 20-24 Y 0 - 119 --- 120-159 >/= 160 ---- >24 Y 0 - 99 100-129 130-159 160-189 >/=190. Cholesterol.total/C holesterol in HDL [Mass ratio] 3.3 {ratio} -[facility] [employer] Work Phone: [phone] Comment on above: REF VALUESDESIRABLE < 3.4HIGH RISK > 5.0 Triglyceride [Mass/Vol] 170 mg/dL above high threshold 0 - 149 -[facility] [employer] Work Phone: [phone] Comment on above: . AGE DESIRABLE BORD LIBAN HIGH HIGH VERY HIGH 0 D-90 D 19 - 174 ---- ---- ----91 D- 9 Y 0 - 74 75 - 99 >/= 100 ---- 10-19 Y 0 - 89 90 - 129 >/= 130 ---- 20-24 Y 0 - 114 115 - 149 >/= 150 ---- >24 Y 0 - 149 150 - 199 200- 499 >/= 500. Venipuncture immediately after or during the administration of Metamizole may lead to falsely low results. Testing should be performed immediately prior to Metamizole dosing. Lipid Panel 34 mg/dL 0 - 40 -[facility] [employer] Work Phone: [phone] Panel Informationon 09-14 56 {mL/min/1.73m2} Abnormal >90 -[facility] [employer] Work Phone: [phone] Comment on above: CALCULATIONS OF BRANDON MATED GFR ARE PERFORMED USING THE 2020 CKD-EPI STUDY REFIT EQUATION WITHOUT THE RACE VARIABLE FOR THE IDMS-TRACEABLE CREATININE METHODS.https://jasn.asnjournals.org/content//ASN. 2112033671 Tobacco Screening.on 022 Adult depression screening assessment No [facility] [employer] Work Phone: Fall risk assessment a) No falls within the last year [facility] [employer] Work Phone: Tobacco use status CPHS b) No -[facility] [employer] Work Phone: Respirationon 08-31-2021 Heart Rate Regular [facility] -Franco 170 DO Work Phone: Respiration Normal [facility] -[place]anco 170 DO Work Phone: No Panel Informationon 05-02 63 mg/dL above high threshold 10-40 -[facility] ick Work Phone: [phone] Comment on above: REFERENCE INTERVAL: Complement Component 4 Access complete set of age- and/or gender-specific reference intervals for this test in the [employer] Laboratory Test Directory ([employer]).Performed By: [facility] [place] [address] [id number] Director: Le Underwood MD 150 mg/dL Normal 88-201 [facility] ick Work Phone: [phone] Comment on above: REFERENCE INTERVAL: Complement Component 3 Access complete set of age- and/or gender-specific reference intervals for this test in the [employer] Laboratory Test Directory ([employer]).Performed By: [facility] [place] [address] [id number] Director: Le Underwood MD Negative Normal [facility] ick Work Phone: [phone] Comment on above: This test is a scree n, if positive refer to the quantitative test. Laboratory - Hematology and Cell countson 04-29-2021 Eosinophils/100 WBC (Bld) 4.6 % Normal [facility] ick Work Phone: [phone] Lymphocytes/100 WBC (Bld) 17.5 % Normal -[facility] ick Work Phone: [phone] Neutrophils/100 WBC (Bld) 68.2 % Normal [facility] ick Work Phone: [phone] WBC (Bld) [#/Vol] 10.6 10*3/uL Normal -[facility] ick Work Phone: [phone] Panel Informationon 04-29 11 {mm/hr} Normal 0-20 -[facility] ick Work Phone: [phone] 90.1 fL Normal 80.0-100.0 [facility] ick Work Phone: [phone] 0 {/100WBC} Normal [facility] ick Work Phone: [phone] 33.5 g/dL Normal 32.0-37.0 [facility] [employer] Work Phone: [phone] {x1000} above high threshold 150-450 [facility] [employer] Work Phone: [phone] 4.71 {x10} Normal 4.20-5.40 [facility] [employer] Work Phone: [phone] Comment on above: Note: RBC morphology is normal unless otherwise stated. Evaluation performed only if differential is requested. No Normal [facility] [employer] Work Phone: [phone] 14.2 g/dL Normal 12.0-16.0 [facility] [employer] Work Phone: [phone] 8.8 fL Normal 7.4-10.4 [facility] [employer] Work Phone: [phone] 42.4 % Normal 36.0-46.0 [facility] [employer] Work Phone: [phone] 30.2 pg Normal 27.0-34.0 [facility] [employer] Work Phone: [phone] 14.1 1 Normal 11.5-14.5 [facility] [employer] Work Phone: [phone] 10.6 {x10} Normal 4.5-11.0 [facility] [employer] Work Phone: [phone] 0.89 {x1000} Normal 0.10-1.00 [facility] [employer] Work Phone: [phone] 7.24 {x1000} Normal 1.40-8.80 [facility] [employer] Work Phone: [phone] 0.48 {x1000} Normal 0.00-0.50 [facility] [employer] Work Phone: [phone] 8.4 % Normal -[facility] Work Phone: [phone] 1.86 {x1000} Normal 1.20-4.80 -[facility] Work Phone: [phone] 1.3 % Normal [facility] Work Phone: [phone] 0.14 {x1000} Normal 0.00-0.20 -[facility] [employer] Work Phone: [phone] 1.0 mg/dL Normal 0.6-1.0 [facility] Phone: [phone] {mL/min/1.73m?} Normal [facility] [employer] Work Phone: [phone] Comment on above: Non GFR CalcMedical judgement is necessary to interpret GFR. The calculated GFR may not accurately reflect renal status in patients >70 years, women, acutely ill hospitalized patients and patients with acute renal failure or known renal disease. The MDRD GFR formula is valid only for adults greater than 18 years of age.Note:Creatinine clearance (not GFR) should be used for drug dosing. >60 Normal [facility] [employer] Work Phone: [phone] Comment on above: GFR CalcMedical judgement is necessary to interpret GFR. The calculated GFR may not accurately reflect renal status in patients >70 years, women, acutely ill hospitalized patients and patients with acute renal failure or known renal disease. The MDRD GFR formula is valid only for adults greater than 18 years of age.Note:Creatinine clearance (not GFR) should be used for drug dosing. 12 mg/dL Normal 10-20 [facility] [employer] Work Phone: [phone] {unit/L} Normal 15-37 [facility] [employer] Work Phone: [phone] Comment on above: Venipuncture should occur prior to sulfasalazine and/or sulfapyridine administration due to the potential for falsely depressed results.Baseline assay values before administration of sulfasalazine and sulfapyridine therapy would not be affected. 20 {unit/L} Normal 13-56 [facility] [employer] Work Phone: Comment on above: Venipuncture should occur prior to sulfasalazine and/or sulfapyridine administration due to the potential for falsely depressed results.Baseline assay values before administration of sulfasalazine and sulfapyridine therapy would not be affected. <0.3 Normal 0.0-0.3 [facility] [employer] Work Phone: Tobacco Screening.on 022 Fall risk assessment a) No falls within the last year [facility] [employer] Work Phone: Tobacco use status CPHS b) No [facility] [employer] Work Phone: IO Hgb A1Con 03-15-2021 HbA1c (Bld) [Mass fraction] 6.3 % 4.4-6.4% [facility] [employer] Work Phone: Tobacco Screening.on 021 Fall risk assessment a) No falls within the last year [employer] [facility] [employer] Work Phone: Tobacco use status CPHS b) No [facility] [employer] Work Phone: Respirationon 11-15-2020 [facility] 170 DO Work Phone: Respiration Normal [facility] 170 DO Work Phone: ALT - Alanine Aminotransfera se, Serumon 10-29-2020 ALT With P-5'-P [Catalytic activity/Vol] 12 U/L 7 - 45 [facility] [employer] Work Phone: Comment on above: Patients treated wit h Sulfasalazine may generate falsely decreased results for ALT. Anti-dsDNA (Double Stranded) Antibodieson 10-29-2020 DNA double strand Ab Qn (S) [IU]/mL [facility] [employer] Work Phone: Comment on above: REF VALUESNEGATIVE: <= 4 IU/MLEQUIVOCAL: 5- 9 IU/MLPOSITIVE: >=10 IU/ML Blood Urea Nitrogen, Serumon 10-29-2020 Urea nitrogen [Mass/Vol] 14 mg/dL 6 - 23 -[facility] [employer] Work Phone: [phone] C Reactive Protein, Serumon 10-29-2020 CRP [Mass/Vol] 0.63 mg/dL -[facility] [employer] Work Phone: [phone] Comment on above: REF VALUE< 1.00 C3 Complement, Serumon 10-29 Complement C3 [Mass/Vol] 134 mg/dL 87 - 200 -[facility] [employer] Work Phone: [phone] C4 Complement, Serumon 10-29 Complement C4 [Mass/Vol] 66 mg/dL above high threshold 10 - 50 -[facility] [employer] Work Phone: [phone] Complete Blood Count + Diffe rentialon 10-29-2020 Basophils/100 WBC (Bld) 1.5 % 0.0 - 2.0 -[facility] [employer] Work Phone: [phone] Erythrocyte distribution width (RBC) [Ratio] 14.2 % See Below [facility] Work Phone: [phone] Comment on above: Reference Range: 11. 5 - 14.5 Hematocrit (Bld) [Volume fraction] 46.7 % above high threshold See Below [facility] [employer] Work Phone: [phone] Comment on above: Reference Range: 36. 0 - 46.0 Hemoglobin (Bld) [Mass/Vol] 14.2 g/dL See Below [facility] [employer] Work Phone: [phone] Comment on above: Reference Range: 12. 0 - 16.0 Lymphocytes/100 WBC (Bld) 19.3 % See Below [facility] [employer] Work Phone: [phone] Comment on above: Reference Range: 13. 0 - 44.0 MCHC (RBC) [Mass/Vol] 30.4 g/dL below low threshold See Below [facility] [employer] Work Phone: [phone] Comment on above: Reference Range: 32. 0 - 36.0 MCV (RBC) [Entitic vol] 97 fL 80 - 100 -[facility] [employer] Work Phone: [phone] Monocytes/100 WBC (Bld) 9.3 % 2.0 - 10.0 -[facility] [employer] Work Phone: [phone] Neutrophils/100 WBC (Bld) 65.5 % See Below [facility] [employer] Work Phone: [phone] Comment on above: Reference Range: 40. 0 - 80.0 Platelets (Bld) [#/Vol] 352 10*3/uL 150 - 450 [facility] [employer] Work Phone: [phone] RBC (Bld) [#/Vol] 4.80 {x10E12/L} See Below [facility] [employer] Work Phone: [phone] Comment on above: Reference Range: 4.0 0 - 5.20 WBC (Bld) [#/Vol] 10.5 10*3/uL 4.4 - 11.3 [facility] [employer] Work Phone: [phone] Complete Blood Count + Differential 0.16 {x10E9/L} above high threshold See Below [facility] [employer] Work Phone: [phone] Comment on above: Reference Range: 0.0 0 - 0.10 Complete Blood Count + Differential 0.35 {x10E9/L} See Below [facility] [employer] Work Phone: [phone] Comment on above: Reference Range: 0.0 0 - 0.70 Complete Blood Count + Differential 0.97 {x10E9/L} See Below [facility] [employer] Work Phone: [phone] Comment on above: Reference Range: 0.1 0 - 1.00 Complete Blood Count + Differential 2.02 {x10E9/L} See Below [facility] [employer] Work Phone: [phone] Comment on above: Reference Range: 1.2 0 - 4.80 Complete Blood Count + Differential 6.84 {x10E9/L} See Below [facility] Work Phone: [phone] Comment on above: Reference Range: 1.2 0 - 7.70 Complete Blood Count + Differential 3.3 % 0.0 - 6.0 [facility] Work Phone: [phone] Complete Blood Count + Differential 1.1 % above high threshold 0.0 - 0.9 [facility] Work Phone: [phone] Comment on above: Immature Granulocyte Count (IG) includes promyelocytes, myelocytes and metamyelocytes but does not include bands. Percent differential counts (%) should be interpreted in the context of the absolute cell counts (cells/L). Complete Blood Count + Differential 0.0 {/100_WBC} 0.0-0.0 [facility] [employer] Work Phone: [phone] Creatinine, Serumon 10-30-19 21 Creatinine [Mass/Vol] 0.93 mg/dL See Below [facility] Work Phone: [phone] Comment on above: Reference Range: 0.5 0 - 1.05 Creatinine, Serum >60 >60 [facility] [employer] Work Phone: [phone] Comment on above: CALCULATIONS OF BRANDON MATED GFR ARE PERFORMED USING THE MDRD STUDY EQUATION FOR THE IDMS-TRACEABLE CREATININE METHODS. CLIN CHEM 2007;53:766-72 Laboratory - Chemistry and C hemistry - challengeon 10-29-2020 AST With P-5'-P [Catalytic activity/Vol] 15 U/L 9 - 39 [facility] Work Phone: [phone] Sedimentation Rate, Erythroc yteon 10-29-2020 ESR (Bld) [Velocity] Canceled [facility] Work Phone: [phone] Tobacco Screening.on 021 Fall risk assessment a) No falls within the last year -[facility] [employer] Work Phone: [phone] Tobacco use status CP b) No -[facility] Work Phone: [phone] Laboratory - Chemistry and C hemistry - challengeon 08-31-2020 Anion gap [Moles/Vol] 13 mmol/L 10 - 20 -[facility] [employer] Work Phone: [phone] Calcium [Mass/Vol] 9.8 mg/dL 8.6 - 10.6 -[facility] [employer] Work Phone: [phone] Chloride [Moles/Vol] 106 mmol/L 98 - 107 -[facility] [employer] Work Phone: [phone] CO2 [Moles/Vol] 28 mmol/L 21 - 32 -[facility] [employer] Work Phone: [phone] Creatinine [Mass/Vol] 1.06 mg/dL above high threshold See Below -[facility] [employer] Work Phone: [phone] Comment on above: Reference Range: 0.5 0 - 1.05 Glucose [Mass/Vol] 171 mg/dL above high threshold 74 - 99 -[facility] [employer] Work Phone: [phone] Potassium [Moles/Vol] 5.1 mmol/L 3.5 - 5.3 -[facility] [employer] Work Phone: [phone] Sodium [Moles/Vol] 142 mmol/L 136 - 145 -[facility] [employer] Work Phone: [phone] Urea nitrogen [Mass/Vol] 17 mg/dL 6 - 23 -[facility] [employer] Work Phone: [phone] Panel Informationon 08-31 67 {mL/min/1.73m2} >60 -[facility] [employer] Work Phone: [phone] Comment on above: CALCULATIONS OF BRANDON MATED GFR ARE PERFORMED USING THE MDRD STUDY EQUATION FOR THE IDMS-TRACEABLE CREATININE METHODS. CLIN CHEM 2007;53:766-72 55 {mL/min/1.73m2} Abnormal >60 [facility] Work Phone: Hemoglobin A1Con 08-24-2020 Glucose [Mass/Vol] 134 mg/dL -Mildred rology -[place] [address] Work Phone: HbA1c (Bld) [Mass fraction] 6.3 % -Neurology [place] [address] Work Phone: Comment on above: Diagnosis of Diabete s-Adults Non-Diabetic: < or = 5.6% Increased risk for developing diabetes: 5.7-6.4% Diagnostic of diabetes: > or = 6.5%. Monitoring of Diabetes Age (y) Therapeutic Goal (%) Adults: >18 <7.0 Pediatrics: 13-18 <7.5 7-12 <8.0 0- 6 7.5-8.5 [employer]. Diabetes Care 33(S1), Apr 2009. Laboratory - Chemistry and C hemistry - challengeon 08-24-2020 Albumin BCP dye [Mass/Vol] 4.1 g/dL 3.4 - 5.0 -Neurology [place] [address] Work Phone: Albumin Ql (U) <7.0 See Below -Neurolo gy -[place] [address] Work Phone: Comment on above: Reference Range: Not Established Albumin/Creatinine DL <= 20 mg/L (U) [Mass ratio] SEE COMMENT 0.0 - 30.0 -Neurology [place] [address] Work Phone: Comment on above: One or more analytes used in this calculation is outside of the analytical measurement range.Calculation cannot be performed. ALP [Catalytic activity/Vol] 101 U/L 33 - 110 [facility]-[place] [address] Work Phone: ALT With P-5'-P [Catalytic activity/Vol] 12 U/L 7 - 45 [facility] [place] [address] Work Phone: Comment on above: Patients treated wit h Sulfasalazine may generate falsely decreased results for ALT. Anion gap [Moles/Vol] 13 mmol/L 10 - 20 [facility] [place] [address] Work Phone: [phone] AST With P-5'-P [Catalytic activity/Vol] 15 U/L 9 - 39 [facility] -[place] [address] Work Phone: [phone] Bilirubin [Mass/Vol] 0.3 mg/dL 0.0 - 1.2 [facility] [place] [address] Work Phone: [phone] Calcium [Mass/Vol] 9.9 mg/dL 8.6 - 10.6 [facility] -[place] [address] Work Phone: [phone] Chloride [Moles/Vol] 105 mmol/L 98 - 107 [facility] [place] [address] Work Phone: [phone] CO2 [Moles/Vol] 28 mmol/L 21 - 32 [facility] [place] [address] Work Phone: [phone] Creatinine (U) [Mass/Vol] 104.0 mg/dL See Below [place] [address] Work Phone: [phone] Comment on above: Reference Range: 20. 0 - 320.0 Creatinine [Mass/Vol] 1.18 mg/dL above high threshold See Below -Neurology [place] [address] Work Phone: [phone] Comment on above: Reference Range: 0.5 0 - 1.05 Glucose [Mass/Vol] 163 mg/dL above high threshold 74 - 99 [facility] [place] [address] Work Phone: [phone] Potassium [Moles/Vol] 5.5 mmol/L above high threshold 3.5 - 5.3 [facility] [place] [address] Work Phone: [phone] Protein [Mass/Vol] 6.6 g/dL 6.4 - 8.2 [facility] [place] [address] Work Phone: [phone] Sodium [Moles/Vol] 140 mmol/L 136 - 145 [facility] rology -[facility] 5 Work Phone: Urea nitrogen [Mass/Vol] 19 mg/dL 6 - 23 [facility] [address] Work Phone: Lipid Panelon 08-24-2020 Cholesterol [Mass/Vol] 171 mg/dL 0 - 199 [facility] Work Phone: Comment on above: . AGE DESIRABLE BORD LIBAN HIGH HIGH 0-19 Y 0 - 169 170 - 199 >/= 200 20-24 Y 0 - 189 190 - 224 >/= 225 >24 Y 0 - 199 200 - 239 >/= 240 All ranges are based on fasting samples. Specific therapeutic targets will vary based on patient-specific cardiac risk.. Pediatric guidelines reference:Pediatrics 2011, 128(S5). Adult guidelines reference: NCEP ATPIII Guidelines, RICK 2001, 258:2856-97. Venipuncture immediately after or during the administration of Metamizole may lead to falsely low results. Testing should be performed immediately prior to Metamizole dosing. Cholesterol in HDL [Mass/Vol] 49.8 mg/dL [facility] [employer] Work Phone: Comment on above: . AGE VERY LOW LOW N ORMAL HIGH 0-19 Y < 35 < 40 40-45 ---- 20- 24 Y ---- < 40 >45 ---- >24 Y ---- < 40 40-60 >60. Cholesterol in LDL [Mass/Vol] 95 mg/dL 0 - 99 [facility] [address] Work Phone: Comment on above: . NEAR BORD AGE JOHNATHON RABLE OPTIMAL HIGH HIGH VERY HIGH 0-19 Y 0 - 109 --- 110-129 >/= 130 ---- 20-24 Y 0 - 119 --- 120-159 >/= 160 ---- >24 Y 0 - 99 100-129 130-159 160-189 >/=190. Cholesterol.total/C holesterol in HDL [Mass ratio] 3.4 {ratio} MG-[place] [address] Work Phone: Comment on above: REF VALUESDESIRABLE < 3.4HIGH RISK > 5.0 Triglyceride [Mass/Vol] 132 mg/dL 0 - 149 [place] [address] Work Phone: Comment on above: . AGE DESIRABLE BORD LIBAN HIGH HIGH VERY HIGH 0 D-90 D 19 - 174 ---- ---- ----91 D- 9 Y 0 - 74 75 - 99 >/= 100 ---- 10-19 Y 0 - 89 90 - 129 >/= 130 ---- 20-24 Y 0 - 114 115 - 149 >/= 150 ---- >24 Y 0 - 149 150 - 199 200- 499 >/= 500. Venipuncture immediately after or during the administration of Metamizole may lead to falsely low results. Testing should be performed immediately prior to Metamizole dosing. Lipid Panel 26 mg/dL 0 - 40 [place] [address] Work Phone: No Panel Informationon 08-24 59 {mL/min/1.73m2} Abnormal >60 [facility] [place] [address] Work Phone: Comment on above: CALCULATIONS OF BRANDON MATED GFR ARE PERFORMED USING THE MDRD STUDY EQUATION FOR THE IDMS-TRACEABLE CREATININE METHODS. CLIN CHEM 2007;53:766-72 49 {mL/min/1.73m2} Abnormal >60 [facility] [address] Work Phone: Vitamin D 25-Hydroxyon 08-24 25-hydroxyvitamin D3 [Mass/Vol] 11 ng/mL Abnormal [place] [address] Work Phone: Comment on above: .DEFICIENCY: < 20 NG /MLINSUFFICIENCY: 20-29 NG/MLSUFFICIENCY: 30-100 NG/MLTHIS ASSAY ACCURATELY QUANTIFIES THE SUM OFVITAMIN D3, 25-HYDROXY AND VIT D2,25-HYDROXY. Falls Risk Screeningon 08-05 Fall risk assessment a) No falls within the last year [place] [address] Work Phone: DIGITAL DIAG MAMM RIGHT UNIL W/ TOMOon 05-11-2020 DIGITAL DIAG MAMM RIGHT UNIL W/ DALTON Patient Name: CHINA ORTIZ STUDY: DIGITAL DIAG MAMM RIGHT UNIL W/ DALTON; 05/11/2020 10:07 am ACCESSION NUMBER(S): [id number] ORDERING CLINICIAN: GISELLE BOYKIN INDICATION: right breast asymmetry. The patient was recalled from recent screening mammogram dated 04/15/2020 for an asymmetry in the slightly medial right breast at middle depth. COMPARISON: 04/15/2020 FINDINGS: 2D and tomosynthesis images were reviewed at 1 mm slice thickness. There are areas of scattered fibroglandular tissue. The previously noted asymmetry slightly medially resolves into fibroglandular and fatty breast tissue with the additional images. There are no suspicious masses or suspicious calcifications. IMPRESSION: No mammographic evidence of malignancy. BI-RADS CATEGORY: Category: 1 - Negative. Recommendation: 1 Year Screening. For any future breast imaging appointments, please call [phone]). Patient letter sent SNORM Electronically signed by: ABDULLAHI HILL MD [facility] 05-11-2020 MG Breast screening Interpreted by: MOE HILL05/11/20 10:42MRN: [id number] Name: CHINA ORTIZ STUDY:DIGITAL DIAG MAMM RIGHT UNIL W/ DALTON; 05/11/2020 10:07 am ORDERING CLINICIAN:GISELLE BOYKIN INDICATION:right breast asymmetry. The patient was recalled from recentscreening mammogram dated 04/15/2020 for an asymmetry in theslightly medial right breast at middle depth. COMPARISON:04/15/2020 FINDINGS:2D and tomosynthesis images were reviewed at 1 mm slice thickness. There are areas of scattered fibroglandular tissue. The previouslynoted asymmetry slightly medially resolves into fibroglandular andfatty breast tissue with the additional images. There are nosuspicious masses or suspicious calcifications. IMPRESSION:No mammographic evidence of malignancy. BI-RADS CATEGORY: Category: 1 - Negative.Recommendation: 1 Year Screening. For any future breast imaging appointments, please call [phone]). Patient letter sent SNORM Electronically signed by: ABDULLAHI HILL 05/11/20 10:42 Normal [employer] [facility] [employer] Work Phone: Comment on above: ORDER REVISED TO A D IGITAL DIAG MAMM RIGHT UNIL W/ DALTON BY RADIOLOGIST; Original Order Number: [id number] Otheron 05-02-2020 EXAMINATION:X-ray bilateral feet.INDICATION: Bilateral foot pain.COMPARISON: NoneTECHNIQUE: 3 views bilateral feet.FINDINGS: Right Foot:Dorsal and plantar calcaneal spur formation. No fracture or dislocation.Soft tissues intact.Joint spaces are maintained. No radiopaque foreign body.Left Foot:Dorsal and plantar calcaneal spur formation. No fracture or dislocation.Soft tissues intact.Joint spaces are maintained. No radiopaque foreign body.IMPRESSION: No fracture or dislocation.Electronicall y signed by: Vasile Lim MD 05/02/2020 12:51 PM [employer] [id number]: ALDictated By: Isha LIM MDed By: Maria Victoria LIM MD Out: 05/02/20 13:51:12 Normal [employer] [facility] [employer] Work Phone: Comment on above: Ordering Provider: Kayden Lange EXAMINATION:X-ray bilateral feet.INDICATION: Bilateral foot pain.COMPARISON: NoneTECHNIQUE: 3 views bilateral feet.FINDINGS: Right Foot:Dorsal and plantar calcaneal spur formation. No fracture or dislocation.Soft tissues intact.Joint spaces are maintained. No radiopaque foreign body.Left Foot:Dorsal and plantar calcaneal spur formation. No fracture or dislocation.Soft tissues intact.Joint spaces are maintained. No radiopaque foreign body.IMPRESSION: No fracture or dislocation.Electronicall y signed by: Vasile Lim MD 05/02/2020 12:51 PM [employer] [id number]: ALDictated By: Cheyanne LIM MDgned By: Maria Victoria LIM MD Out: 05/02/20 13:51:12 Normal [employer] [facility] [employer] Work Phone: Comment on above: Ordering Provider: Kayden Lange ALT - Alanine Aminotransfera se, Serumon 04-30-2020 ALT With P-5'-P [Catalytic activity/Vol] 10 U/L 7 - 45 [facility] [employer] Work Phone: [phone] Comment on above: Patients treated wit h Sulfasalazine may generate falsely decreased results for ALT. Anti-dsDNA (Double Stranded) Antibodieson 04-30-2020 DNA double strand Ab Qn (S) [IU]/mL -[facility] [employer] Work Phone: [phone] Comment on above: REF VALUESNEGATIVE: <= 4 IU/MLEQUIVOCAL: 5- 9 IU/MLPOSITIVE: >=10 IU/ML Blood Urea Nitrogen, Serumon 04-30-2020 Urea nitrogen [Mass/Vol] 13 mg/dL 6 - 23 -[facility] [employer] Work Phone: [phone] C Reactive Protein, Serumon 04-30-2020 CRP [Mass/Vol] 0.49 mg/dL -[facility] [employer] Work Phone: [phone] Comment on above: REF VALUE< 1.00 C3 Complement, Serumon 04-30 Complement C3 [Mass/Vol] 144 mg/dL 87 - 200 -[facility] [employer] Work Phone: [phone] C4 Complement, Serumon 04-30 Complement C4 [Mass/Vol] 69 mg/dL above high threshold 10 - 50 -[facility] [employer] Work Phone: [phone] Complete Blood Count + Diffe rentialon 04-30-2020 Basophils/100 WBC (Bld) 1.3 % 0.0 - 2.0 -[facility] [employer] Work Phone: [phone] Eosinophils (Bld) [#/Vol] 0.31 {x10E9/L} See Below [facility] [employer] Work Phone: [phone] Comment on above: Reference Range: 0.0 0 - 0.70 Eosinophils/100 WBC (Bld) 2.9 % 0.0 - 6.0 -[facility] [employer] Work Phone: [phone] Erythrocyte distribution width (RBC) [Ratio] 14.4 % See Below -[facility] [employer] Work Phone: [phone] Comment on above: Reference Range: 11. 5 - 14.5 Hematocrit (Bld) [Volume fraction] 42.3 % See Below -[facility] [employer] Work Phone: [phone] Comment on above: Reference Range: 36. 0 - 46.0 Hemoglobin (Bld) [Mass/Vol] 13.6 g/dL See Below -[facility] [employer] Work Phone: [phone] Comment on above: Reference Range: 12. 0 - 16.0 Lymphocytes (Bld) [#/Vol] 2.41 {x10E9/L} See Below [employer] [facility] [employer] Work Phone: [phone] Comment on above: Reference Range: 1.2 0 - 4.80 Lymphocytes/100 WBC (Bld) 22.9 % See Below -[facility] [employer] Work Phone: [phone] Comment on above: Reference Range: 13. 0 - 44.0 MCHC (RBC) [Mass/Vol] 32.2 g/dL See Below -[facility] [employer] Work Phone: [phone] Comment on above: Reference Range: 32. 0 - 36.0 MCV (RBC) [Entitic vol] 95 fL 80 - 100 [facility] [employer] Work Phone: [phone] Monocytes (Bld) [#/Vol] 1.13 {x10E9/L} above high threshold See Below -[facility] [employer] Work Phone: [phone] Comment on above: Reference Range: 0.1 0 - 1.00 Monocytes/100 WBC (Bld) 10.7 % 2.0 - 10.0 [employer] [employer] Work Phone: [phone] Neutrophils (Bld) [#/Vol] 6.47 {x10E9/L} See Below -[facility] [employer] Work Phone: [phone] Comment on above: Reference Range: 1.2 0 - 7.70 Neutrophils/100 WBC (Bld) 61.5 % See Below [facility] [employer] Work Phone: [phone] Comment on above: Reference Range: 40. 0 - 80.0 Platelets (Bld) [#/Vol] 501 {x10E9/L} above high threshold 150 - 450 [facility] [employer] Work Phone: [phone] RBC (Bld) [#/Vol] 4.47 {x10E12/L} See Below [employer] [facility] [employer] Work Phone: [phone] Comment on above: Reference Range: 4.0 0 - 5.20 WBC (Bld) [#/Vol] 0.0 {/100_WBC} 0.0-0.0 [employer] [employer] Work Phone: [phone] WBC (Bld) [#/Vol] 10.5 {x10E9/L} 4.4 - 11.3 [employer] [employer] Work Phone: [phone] Complete Blood Count + Differential 0.14 {x10E9/L} above high threshold See Below [employer] [facility] [employer] Work Phone: [phone] Comment on above: Reference Range: 0.0 0 - 0.10 Complete Blood Count + Differential 0.7 % 0.0 - 0.9 [facility] [employer] Work Phone: [phone] Comment on above: Immature Granulocyte Count (IG) includes promyelocytes, myelocytes and metamyelocytes but does not include bands. Percent differential counts (%) should be interpreted in the context of the absolute cell counts (cells/L). Creatinine, Serumon 04-30-19 21 Creatinine [Mass/Vol] 0.89 mg/dL See Below [facility] [employer] Work Phone: [phone] Comment on above: Reference Range: 0.5 0 - 1.05 Creatinine [Mass/Vol] mg/dL >60 -[facility] [employer] Work Phone: Comment on above: CALCULATIONS OF BRANDON MATED GFR ARE PERFORMED USING THE MDRD STUDY EQUATION FOR THE IDMS-TRACEABLE CREATININE METHODS. CLIN CHEM 2007;53:766-72 Otheron 04-30-2020 AST With P-5'-P [Catalytic activity/Vol] 13 U/L 9 - 39 -[facility] [employer] Work Phone: Sedimentation Rate, Erythroc yteon 04-30-2020 ESR (Bld) [Velocity] 7 mm/h 0 - 20 -[facility] [employer] Work Phone: DIGITAL MAMM SCREENING W/ TO [place] 04-15-2020 DIGITAL MAMM SCREENING W/ DALTON Patient Name: CHINA ORTIZ STUDY: DIGITAL MAMM SCREENING W/ DALTON; 04/15/2020 11:32 am ACCESSION NUMBER(S): [id number] ORDERING CLINICIAN: GISELLE BOYKIN INDICATION: Screening. New baseline. COMPARISON: None. FINDINGS: 2D and tomosynthesis images were reviewed at 1 mm slice thickness. There are areas of scattered fibroglandular tissue. An asymmetry is present in the slight medial right breast at middle depth. No suspicious masses or calcifications are identified in the left breast. IMPRESSION: No mammographic evidence of malignancy in the left breast. Right breast asymmetry. BI-RADS CATEGORY: Category: 0 - Incomplete; Need Additional Imaging Evaluation and/or Prior Mammograms for Comparison. Recommendation: Additional views and possible ultrasound. For any future breast imaging appointments, please call [phone]). Patient letter sent SADEVAL Electronically signed by: ZAMZAM HUMPHREY MD Normal [facility] [place] [facility]amm - Screening Mammogram w / Tomosynthesison 04-15-2020 MG Breast screening Interpreted by: ZAMZAM HUMPHREY04/16/20 13:23MRN: [id number] Name: CHINA ORTIZ STUDY:DIGITAL MAMM SCREENING W/ DALTON; 04/15/2020 11:32 am ORDERING CLINICIAN:GISELLE BOYKIN INDICATION:Screening. New baseline. COMPARISON:None. FINDINGS:2D and tomosynthesis images were reviewed at 1 mm slice thickness. There are areas of scattered fibroglandular tissue. An asymmetry ispresent in the slight medial right breast at middle depth. Nosuspicious masses or calcifications are identified in the left breast. IMPRESSION:No mammographic evidence of malignancy in the left breast. Rightbreast asymmetry. BI-RADS CATEGORY: Category: 0 - Incomplete; Need Additional Imaging Evaluation and/orPrior Mammograms for Comparison.Recommendation : Additional views and possible ultrasound. For any future breast imaging appointments, please call [phone]). Patient letter sent SADEVAL Electronically signed by: ZAMZAM HUMPHREY 04/16/20 13:23 Normal [employer] [facility] [employer] Work Phone: Comment on above: ORDER REVISED TO A D IGITAL MAMM SCREENING W/ DALTON BY RADIOLOGIST; Original Order Number: [id number] Glucose,Bedsideon 12-04-2019 Glucose [Mass/Vol] 155 mg/dL High 70-100 [facility] Comment on above: Result Comment: Test performed by glucose meter. Results may be 10%-15% lower than serum/plasma values. (CLIA ID [id number]) Performed By: #### B GLU #### [facility] [employer] [facility] [address] [place] [address] Glucose [Mass/Vol] 106 mg/dL High 70-100 [facility] Comment on above: Result Comment: Test performed by glucose meter. Results may be 10%-15% lower than serum/plasma values. (CLIA ID [id number]) Performed By: #### B GLU #### [facility] [address] [place] [address] POCT Glucoseon 12-04-2019 Glucose [Mass/Vol] 155 mg/dL High 70 - 100 mg/dL [place], [place] Comment on above: Test performed by gl ucose meter. Results may be 10%-15% lower than serum/plasma values. (CLIA ID [id number]) Interpretation and review of laboratory results Abnormal [facility], [place] Test Performed by [facility], [address] [place], [place], [place] [address] [place], [place] Glucose [Mass/Vol] 106 mg/dL High 70 - 100 mg/dL [place], [place] Comment on above: Test performed by gl ucose meter. Results may be 10%-15% lower than serum/plasma values. (CLIA ID [id number]) Interpretation and review of laboratory results Abnormal [place], [place] Test Performed by [facility], [address] [place] [address] [place], [place] Glucose,Bedsideon 12-03-2019 Glucose [Mass/Vol] 135 mg/dL High 70-100 [facility] Comment on above: Result Comment: Test performed by glucose meter. Results may be 10%-15% lower than serum/plasma values. (CLIA ID [id number]) Performed By: #### B GLU #### [facility] [address] [place] [address] Glucose [Mass/Vol] 140 mg/dL High 70-100 [facility] Comment on above: Result Comment: Test performed by glucose meter. Results may be 10%-15% lower than serum/plasma values. (CLIA ID [id number]) Performed By: #### B GLU #### [facility] [address] [place] [address] Glucose [Mass/Vol] 107 mg/dL High 70-100 [facility] Comment on above: Result Comment: Test performed by glucose meter. Results may be 10%-15% lower than serum/plasma values. (CLIA ID [id number]) Performed By: #### B GLU #### [facility] [address] [place] [address] HCG,Urine Qualon 12-03-2019 Beta HCG ( test) Ql (U) Negative Normal Negative [facility] Comment on above: Result Comment: Preg padmaja is the most common reason for HCG in urine, although choriocarcinoma, hydatidiform mole, and certain nontropho- blastic malignancies also result in detectable urinary HCG levels. Sensitivity = 20mIU/mL. Performed By: #### H CGUR #### [facility] [address] [place] [address] Op Noteon 12-03-2019 Op Note PATIENT: LUZIER, CRY STAL M ADMISSION DATE: 12/03/2019 SURGERY DATE: 12/03/2019 DATE OF : 1970 AGE: 49 ADMITTING PHYSICIAN: Rene Gaines MD ATTENDING PHYSICIAN: Rene Gaines MD DICTATING PHYSICIAN: Rene Gaines MD OPERATIVE RECORD PROCEDURE: A TOTAL LAPAROSCOPIC HYSTERECTOMY, BILATERAL SALPINGO-OOPHORECTOMY AND CYSTOSCOPY WITH IUD REMOVAL. PREOPERATIVE DIAGNOSES: 1. Abnormal uterine bleeding and pelvic pain. 2. Fibroids and pelvic adhesions postoperatively. POSTOPERATIVE DIAGNOSES: ANESTHESIA: General. ESTIMATED BLOOD LOSS: 50 cc. COMPLICATIONS: None. SPECIMENS: Included uterus, bilateral tubes, and ovaries. DESCRIPTION OF PROCEDURE: The patient was taken to the operative room where she was prepped and draped in normal sterile fashion in dorsal lithotomy position. The patient initially had a procedure started with General Surgery, Dr. Ventura for port placement. Please see his dictation regarding the placement of the port. After Dr. Ventura placed the ports, I entered the OR and the patient was stable at that time. Then attention was turned to the vagina and the patient had a Veloz catheter placed. She had a sterile speculum placed in the vagina. Anterior lip of the cervix was grasped with single-tooth tenaculum. She had 2-0 Vicryl stitches placed anteriorly and posteriorly on the cervix to aid in positioning of the JANETTE uterine. The uterine manipulator was placed. Tenaculum and speculum were removed with good hemostasis vaginally. Attention was then turned to the abdominal portion of procedure. The patient had her ureters identified bilaterally. The patient then had the round ligament cauterized and transected with the Enseal device bilaterally. The bladder flap was created bilaterally. The patient had pelvic adhesions from the bladder to the lower uterine segment. She also had some bowel adhesions to the left adnexa, which were treated with blunt and sharp dissection. The patient then had the anterior aspect of the uterus, which was adhered to the anterior abdominal wall. These adhesions were dissected with the Enseal device. There were some adhesions between fibroids toward the fundus of the uterus in the anterior abdominal wall, which were also dissected with the Enseal device. The patient then had attention turned to her infundibulopelvic ligaments bilaterally, which were cauterized and transected with the Enseal device. The patient then had her uterine arteries skeletonized bilaterally with the Enseal device. The patient had the uterine arteries cauterized and transected with the Enseal device bilaterally. She then had anterior colpotomy created with the laparoscopic scissors and cautery, carried down to the pedicles bilaterally. Then, a posterior colpotomy was created with the laparoscopic scissors and cautery. The remaining pedicles were cauterized and transected with the Enseal device until the uterus was free. Attention was then turned to the vaginal portion of the procedure. The uterus was delivered vaginally. The vaginal cuff was then closed with 0 Vicryl in a running fashion. The patient then had indigo carmine administered and a cystoscopy performed. Cystoscopy revealed normal appearance of the bladder with a good streaming of blue dye from both ureteral orifices. The cystoscopy was terminated. The Veloz catheter was removed and replaced for this procedure. The patient then was noted to have a vaginal laceration from the vaginal retractors. This was closed with 0 Vicryl in a running fashion with good hemostasis at that point. Attention was turned back to the abdominal portion of the procedure. The patient had her vaginal cuff inspected intra-abdominally and it was found to be hemostatic. The patient had her pelvis irrigated and drained. She had Surgicel applied over the operative sites and then her abdomen was desufflated. The trocars were removed. The trocar sites were closed with 4-0 interrupted and Dermabond. At this point, the procedure was terminated. The patient tolerated the procedure well. Sponge, lap, and needle counts were correct x2. The patient was taken to recovery room in stable and good condition. She did receive antibiotics preoperatively. Disk[employer] Job ID: [id number] Rene Gaines MD DOD:12/03/2019 05:19 P NIR/michelle DOT:12/03/2019 07:51 P Job Number: [id number] Document Number: [id number] [facility] Op Note Date: 12/03/2019 PreOp Dx: Abnormal Uterine Bleeding, History of Multiple prior abdominal surgeries PostOp Dx: Same, Adhesions Procedure: Laparoscopic Lysis of Adhesions Surgical Procedure Classification: Surgical Procedure Classification [x] Elective (EL) [] Urgent (UR) [] Emergent (EM) [] Trauma (TR) Wound Classification: Surgical Wound Classification [x] Class I/Clean (CL) [] Class II/Clean-Contaminated (CC) [] Class III/Contaminated (C) [] ClassIV/Dirty-Infected (D) Complications: None Specimen(s): None Notes EBL: 10cc Transfusion: none Fluids: See anesthesia record Drains: none Veloz: See anesthesia record Special Meds: TAP block Surgeon: Luis Enrique Ventura Assist: Lilly Delgadillo SA Anesthesia: General Indications: This is a 49 yo F with history of abnormal uterine bleeding. She was to undergo laparoscopic hysterectomy with gynecology. However, she had history of prior laparotomy for distal pancreatectomy, splenectomy and subsequent ventral hernia repair. Gynecology requested assistance with the case due to the light likelihood of intraabdominal adhesions. Risks, benefits and alternatives to surgery were discussed with the patient and decision was made to proceed. Informed consent was obtained. Description of procedure: The patient was brought into the operative suite and placed in the supine position. General anaesthesia was induced. The patient was placed in lithotomy and all bony prominences were padded. The abdomen was prepped and draped in a sterile fashion with chlorhexidine solution. A timeout was performed verifying the correct patient, procedure, site and positioning. An incision was made in the LUQ at Castañeda's point and a Veress needle was inserted. The abdomen was insufflated to 15 mm Hg. An optical trochar was placed under direct visualization. Three additional 5 mm trochars were placed under direct visualization in the LLQ, umbilical and RLQ. Omental adhesions were lysed in the midline and upper quadrants with the Enseal device. Additional upper abdominal adhesions were not addressed as they would not interfere with the pelvic operation and were not obstructing. The pelvis was free of adhesions and the laparoscopic hysterectomy proceeded as planned. 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 Please see Dr. Gaines's note. [facility] POCT Glucoseon 12-03-2019 Glucose [Mass/Vol] 135 mg/dL High 70 - 100 mg/dL [facility] [place] [place] Comment on above: Test performed by Thubrikar Aortic Valve ucose meter. Results may be 10%-15% lower than serum/plasma values. (CLIA ID [id number]) Interpretation and review of laboratory results Abnormal [employer], [place] Test Performed by [facility], [address] [place], [place] [id number] [place] [address] [employer] [place], [place] Glucose [Mass/Vol] 140 mg/dL High 70 - 100 mg/dL [facility] [place] Comment on above: Test performed by gl ucose meter. Results may be 10%-15% lower than serum/plasma values. (CLIA ID [id number]) Interpretation and review of laboratory results Abnormal [facility] Test Performed by [facility], [address] [place], [place] [address] [facility] [place] Glucose [Mass/Vol] 107 mg/dL High 70 - 100 mg/dL [facility] [place] Comment on above: Test performed by gl ucose meter. Results may be 10%-15% lower than serum/plasma values. (CLIA ID [id number]) Interpretation and review of laboratory results Abnormal [employer], [employer] Test Performed by [facility], [address] [place], [place] [id number] [place] [address] , urineon 0 Beta HCG ( test) Ql (U) Negative Negative NA [facility] [place] Comment on above: is the mos t common reason for HCG in urine, although choriocarcinoma, hydatidiform mole, and certain nontropho- blastic malignancies also result in detectable urinary HCG levels. Sensitivity = 20mIU/mL. Test Performed by [facility], [address] [place], [place] [id number] [place] [address] Surgical Pathologyon 020 Surgical Pathology [id number] [facility] PATHOLOGY AND LABORATORY MEDICINE [address] [place] [address] Fax - FINAL SURGICAL PATHOLOGY REPORT NAME: CHINA ORTIZ : 1970 49 Y Colby AQUINO NO.: [id number] LOCATION: [id number] PROCEDURE 12/03/2019 DATE: SURGEON: LUIS ENRIQUE VENTURA M.D. RECEIVED 12/03/2019 DATE: ATTENDING: RENE GAINES MD REPORT DATE: 12/09/2019 COPIES TO: DIAGNOSIS: UTERUS, CERVIX, BILATERAL FALLOPIAN TUBES AND OVARIES, HYSTERECTOMY WITH BILATERAL SALPINGO-OOPHORECTOMY - CHRONIC CERVICITIS ENDOMETRIUM WITH FEATURES CONSISTENT WITH EXOGENOUS HORMONE EFFECT. MYOMETRIUM WITH LEIOMYOMATA UNREMARKABLE BILATERAL FALLOPIAN TUBES LEFT OVARY WITH BENIGN SIMPLE CYSTS, CYSTIC FOLLICLES AND LUTEAL CYST RIGHT OVARY WITH BENIGN SIMPLE CYSTS AND CYSTIC FOLLICLES. SMT/SMT Signature> S JIMMY REECE M.D. CLINICAL INFORMATION: Abnormal uterine bleeding SPECIMEN: UTERUS, WITH/WITHOUT TUBES AND OVARIES GROSS DESCRIPTION: Uterus, cervix and bilateral fallopian tubes and ovaries" Received in formalin is a uterus with attached cervix and bilateral fallopian tubes and ovaries. The uterus and cervix together measure 10 x 6 x 5 cm and together have a combined weight of 108 grams. The ectocervix is glistening smooth pink alvarez. The cervical os is gapping and measures 1 cm in length. There is a small defect located on the anterior surface of the fundus. The serosal surface is finely wrinkled to bosselated pink alvarez. Upon opening the uterus and cervix the squamocolumar junction is distinct. The endocervical canal measures approximately 2.5 cm in length while the endometrial cavity measures approximately 6 cm in length and up to 2.5 cm in width. The myometrium is pink joya with superficial hemorrhage and averages approximately 0.2 cm in thickness. Transection of the myometrium two somewhat well circumscribed bulging nodular masses are identified measuring 1.5 and 2 cm in greatest dimension. They have whorled white alvarez cut surfaces which are free from areas of hemorrhage or friability. The left ovary measures 2.5 x 2 x 1.5 cm and weighs approximately 7 grams. The ovary appears to have been cystic and is collapsed. The external surface is pink alvarez to yellow joya. Upon transection the specimen demonstrate a unilocular cyst measuring 1.8 cm in greatest dimension. It has a smooth inner surface. Ovarian parenchyma is pink joya. The attached fallopian tube measures 7 cm in length and 0.7 cm in diameter. Upon transection it demonstrates a pinpoint lumen. The right ovary measures 2 x 1.5 x 1 cm and weighs 3 grams. The external surfaces are wrinkled pink alvarez to yellowish joya. Upon transection the cut surfaces are pink joya with white chalky areas and demonstrate a small smooth walled subcortical cyst filled with clear watery fluid. The attached fallopian tube measures 7 cm in length and 0.7 cm in diameter. Fimbria are present and are free. Upon transection a pinpoint lumen is identified. Multiple public service representative sections are submitted in ten cassettes as follows: block 1 anterior cervix and lower uterine segment; 2 posterior cervix and lower uterine segment; 3 full thickness section of anterior endometrium and myometrium; 4 full thickness section of posterior endometrium myometrium; 5 and 6 sections from each of the two bulging masses; 7 and 8 sections of the left ovary and fallopian tube including all fimbria; 9 and 10 sections of right ovary and fallopian tube including all fimbria. JCK/CHANDRA Disclaimer: The following statement applies to all immunohistochemistry, in situ hybridization, molecular studies, and immunofluorescence testing. The use of one or more reagents in the above tests is regulated as an analyte specific reagent (ASR). These tests were developed and their performance characteristics determined by the clinical laboratories of [facility]. They have not been cleared by the US Food and Drug Administration (FDA). The FDA has determined that such clearance or approval is not necessary. All the above immunostains were performed on paraffin embedded tissue. Appropriate positive and negative controls (where applicable) were run in parallel with the patient's specimen; these controls showed expected staining pattern, with acceptable intensity of staining. Immunohistochemical assays have not been validated on decalcified tissues. Results should be interpreted with caution given the raised possibility of false negativity on decalcified specimens. Case reviewed at [address] [address]. DEPARTMENT OF PATHOLOGY AND LABORATORY MEDICINE [place], [place] [address] Normal [facility] Basic Metabolic Panelon 08-2 6-2020 Anion gap [Moles/Vol] 8 Normal [facility] Comment on above: Performed By: #### Jassi FRANKLIN BMP3 #### [facility] [address] [place] [address] Calcium [Mass/Vol] 9.1 mg/dL Normal 8.4-10.4 [facility] Comment on above: Performed By: #### Jassi FRANKLIN BMP3 #### [facility] [address] [place] [address] CO2 [Moles/Vol] 23 mmol/L Normal 22-30 [facility] Comment on above: Performed By: #### Jassi FRANKLIN BMP3 #### [facility] [address] [place] [address] Glucose [Mass/Vol] 95 mg/dL Normal 70-100 [facility] Comment on above: Performed By: #### Jassi FRANKLIN BMP3 #### [facility] [address] [place] [address] Urea nitrogen [Mass/Vol] 12 mg/dL Normal 7-20 [facility] Comment on above: Performed By: #### Jassi FRANKLIN BMP3 #### [facility] [address] [place] [address] Creatinine [Mass/Vol] 0.88 mg/dL Normal 0.52-1.25 [facility] Comment on above: Performed By: #### Jassi FRANKLIN BMP3 #### [facility] [address] [place] [address] GFR/1.73 sq M predicted among blacks MDRD (S/P/Bld) [Vol rate/Area] mL/min/{1.73_m2} Normal >60 [facility] Comment on above: Performed By: #### H NOEMI BMP3 #### [facility] [address] [place] [address] GFR/1.73 sq M predicted among non-blacks MDRD (S/P/Bld) [Vol rate/Area] 77.8 mL/min/{1.73_m2} Normal >60 [facility] Comment on above: Result Comment: KDIG O guidelines provide the following GFR categories: Stage GFR(ml/min/1.73 m2) Terms G1 >=90 Normal or high G2 60-89 Mildly decreased* G3a 45-59 Mildly to moderately decreased G3b 30-44 Moderately to severely decreased G4 15-29 Severely decreased G5 <15 Kidney failure *Relative to young adult level. In the absence of evidence of kidney damage, neither GFR category G1 nor G2 fulfill the criteria for CKD. The CKD-EPI equation is validated in individuals 18 years of age and older. Currently the best equation for estimating glomerular filtration rate (GFR) from serum creatinine in children is the Bedside Pantoja equation. It is less accurate in patients with extremes of muscle mass, restriction of dietary protein, ingestion of creatine, extra-renal metabolism of creatinine, or treatment with medications that affect renal tubular creatinine secretion. Performed By: #### H NOEMI BMP3 #### [facility] [address] [place] [address] Chloride [Moles/Vol] 107 mmol/L Normal 98-107 [facility] Comment on above: Performed By: #### H NOEMI BMP3 #### [facility] [address] [place] [address] Potassium [Moles/Vol] 5.0 mmol/L Normal 3.5-5.1 [facility] Comment on above: Performed By: #### H NOEMI BMP3 #### [facility] [address] [place] [address] Sodium [Moles/Vol] 138 mmol/L Normal 135-145 [facility] Comment on above: Performed By: #### H EMOG, BMP3 #### [facility] [address] [place] [address] Anion gap [Moles/Vol] 8 mmol/L [place], [place] Calcium [Mass/Vol] 9.1 mg/dL 8.4 - 10. 4 mg/dL [place], [place] Chloride [Moles/Vol] 107 mmol/L 98 - 107 mmol/L [place] CO2 [Moles/Vol] 23 mmol/L 22 - 30 mmol/L [place] Creatinine [Mass/Vol] 0.88 mg/dL 0.52 - 1.25 mg/dL [place], [place] EGFR IF NonAfrican Taiwanese 77.8 mL/min >60 [place] Comment on above: KDIGO guidelines pro vide the following GFR categories: Stage GFR(ml/min/1.73 m2) Terms G1 >=90 Normal or high G2 60-89 Mildly decreased* G3a 45-59 Mildly to moderately decreased G3b 30-44 Moderately to severely decreased G4 15-29 Severely decreased G5 <15 Kidney failure *Relative to young adult level. In the absence of evidence of kidney damage, neither GFR category G1 nor G2 fulfill the criteria for CKD. The CKD-EPI equation is validated in individuals 18 years of age and older. Currently the best equation for estimating glomerular filtration rate (GFR) from serum creatinine in children is the Bedside Pantoja equation. It is less accurate in patients with extremes of muscle mass, restriction of dietary protein, ingestion of creatine, extra-renal metabolism of creatinine, or treatment with medications that affect renal tubular creatinine secretion. GFR/1.73 sq M predicted among blacks MDRD (S/P/Bld) [Vol rate/Area] mL/min/{1.73_m2} >60 mL/min [place], [place] Glucose [Mass/Vol] 95 mg/dL 70 - 100 mg/dL [place] Potassium [Moles/Vol] 5.0 mmol/L 3.5 - 5.1 mmol/L [place] Sodium [Moles/Vol] 138 mmol/L 135 - 145 mmol/L [place] Urea nitrogen [Mass/Vol] 12 mg/dL 7 - 20 mg/dL [place] Test Performed by [facility], [address] [place], [place] [address] [place], [place] CBCon 11-26-2019 Erythrocyte distribution width (RBC) [Ratio] 16.4 % High 11.5 - 14.5 % [place] Hematocrit (Bld) [Volume fraction] 41.5 % 35 - 47 % [place] Hemoglobin (Bld) [Mass/Vol] 13.2 g/dL 11.7 - 16 g/dL [place] Interpretation and review of laboratory results Abnormal [place] MCH (RBC) [Entitic mass] 28.2 pg 26 - 34 pg [place] MCHC (RBC) [Mass/Vol] 31.9 % Low 32 - 36 % [place] MCV (RBC) [Entitic vol] 88.3 fL 79 - 98 fL [place] Platelet mean volume (Bld) [Entitic vol] 8.4 fL 7.4 - 10.4 fL [place] Platelets (Bld) [#/Vol] 490 10*3/uL High 140 - 440 10*3/uL [place] RBC (Bld) [#/Vol] 4.69 10*6/uL 3.8 - 5.2 10*6/uL [place] WBC (Bld) [#/Vol] 10.5 10*3/uL 3.6 - 10.7 10*3/uL [place] Test Performed by [facility], [address] [place] [address] [place] Hemogramon 11-26-2019 Erythrocyte distribution width (RBC) [Ratio] 16.4 % High 11.5-14.5 [facility] Comment on above: Performed By: #### H BRANDON FRANKLIN3 #### [facility] [address] [place] [address] Hematocrit (Bld) [Volume fraction] 41.5 % Normal 35.0-47.0 [facility] Comment on above: Performed By: #### H BRANDON FRANKLIN3 #### [facility] [employer] [facility] [address] [place] [address] Hemoglobin (Bld) [Mass/Vol] 13.2 g/dL Normal 11.7-16.0 [facility] Comment on above: Performed By: #### Jassi FRANKLIN BMP3 #### [facility] [address] [place] [address] MCH (RBC) [Entitic mass] 28.2 pg Normal 26.0-34.0 [facility] Comment on above: Performed By: #### Jassi FRANKLIN BMP3 #### [facility] [address] [place] [address] MCHC (RBC) [Mass/Vol] 31.9 % Low 32.0-36.0 [facility] Comment on above: Performed By: #### Jassi FRANKLIN BMP3 #### [facility] [address] [place] [address] MCV (RBC) [Entitic vol] 88.3 fL Normal 79.0-98.0 [facility] Comment on above: Performed By: #### Jassi FRANKLIN BMP3 #### [facility] [address] [place] [address] Platelet mean volume (Bld) [Entitic vol] 8.4 fL Normal 7.4-10.4 [facility] Comment on above: Performed By: #### Jassi FRANKLIN BMP3 #### [facility] [address] [place] [address] Platelets (Bld) [#/Vol] 490 10*3/uL High 140-440 [facility] Comment on above: Performed By: #### Jassi FRANKLIN BMP3 #### [facility] [address] [place] [address] RBC (Bld) [#/Vol] 4.69 10*6/uL Normal 3.80-5.20 [facility] Comment on above: Performed By: #### Jassi FRANKLIN BMP3 #### [facility] [address] [place] [address] WBC (Bld) [#/Vol] 10.5 10*3/uL Normal 3.6-10.7 [facility] Comment on above: Performed By: #### Jassi FRANKLIN BMP3 #### [facility] [address] [place] [address] TS GELon 11-26-2019 TS GEL ABO Group: O Rh, Gel: POS Antibody Screen Gel: NEG Normal [facility] Comment on above: Performed By: #### T SGL #### [facility] [address] [place] [address] [facility] TYPE AND SCREENon 11-26-2019 Sodium [Moles/Vol] Positive [facility], [place] Sodium [Moles/Vol] O [facility], [place] Sodium [Moles/Vol] Negative [facility] Test Performed by [facility], [address], [place] [address] [facility], [place] Glucose,Bedsideon 12-24-2018 Glucose [Mass/Vol] 151 mg/dL High 70-100 [facility] Comment on above: Result Comment: Test performed by glucose meter. Results may be 10%-15% lower than serum/plasma values. (CLIA ID [id number]) Performed By: #### B GLU #### [facility] [address] [place] [address] Glucose [Mass/Vol] 128 mg/dL High 70-100 [facility] Comment on above: Result Comment: Test performed by glucose meter. Results may be 10%-15% lower than serum/plasma values. (CLIA ID [id number]) Performed By: #### B GLU #### [facility] [address] [place] [address] HCG,Urine Qualon 12-24-2018 Beta HCG ( test) Ql (U) Negative Normal Negative [facility] Comment on above: Result Comment: Preg padmaja is the most common reason for HCG in urine, although choriocarcinoma, hydatidiform mole, and certain nontropho- blastic malignancies also result in detectable urinary HCG levels. Sensitivity = 20mIU/mL. Performed By: #### H CGUR #### [facility] [address] [place] [address] POCT Glucoseon 12-24-2018 Glucose [Mass/Vol] 151 mg/dL High 70 - 100 mg/dL [place] Comment on above: Test performed by gl ucose meter. Results may be 10%-15% lower than serum/plasma values. (CLIA ID [id number]) Interpretation and review of laboratory results Abnormal [place] Test Performed by [facility], [address] , [address] Glucose [Mass/Vol] 128 mg/dL High 70 - 100 mg/dL [place] Comment on above: Test performed by gl ucose meter. Results may be 10%-15% lower than serum/plasma values. (CLIA ID [id number]) Interpretation and review of laboratory results Abnormal [place] Test Performed by [facility], [address] , [address] , urineon 9 Beta HCG ( test) Ql (U) Negative Negative NA [place] Comment on above: is the mos t common reason for HCG in urine, although choriocarcinoma, hydatidiform mole, and certain nontropho- blastic malignancies also result in detectable urinary HCG levels. Sensitivity = 20mIU/mL. Test Performed by [facility], [address] , [address] Surgical Pathologyon 019 Surgical Pathology [id number] [facility]ATORY MEDICINE [address] [place] [phone] Fax - FINAL SURGICAL PATHOLOGY REPORT NAME: CHINA ORTIZ : 1970 48 Y F BILLING NO.: [id number] LOCATION: [place] [address] PROCEDURE 12/24/2018 DATE: SURGEON: LUCRECIA REICH M.D. RECEIVED 12/24/2018 DATE: ATTENDING: LUCRECIA REICH M.D. REPORT DATE: 12/27/2018 COPIES TO: DIAGNOSIS: HERNIA SAC, REPAIR - FIBROCONNECTIVE AND FIBROADIPOSE TISSUE. 0SS/0SS Signature> SELENA GUAMAN MD CLINICAL INFORMATION: Recurrent incisional hernia SPECIMEN: HERNIA GROSS DESCRIPTION: Hernia sac Received in formalin are multiple, lobulated, yellow-joya tissue segments aggregating to 4 x 2 x 2 cm. Cut surfaces are bulging and yellow-joya. No areas of hemorrhage or friability are identified. Automation Mechanic sections are submitted in a single cassette. (bits ss, 1) JCK/MILVIA Disclaimer: The following statement applies to all immunohistochemistry, in situ hybridization, molecular studies, and immunofluorescence testing. The use of one or more reagents in the above tests is regulated as an analyte specific reagent (ASR). These tests were developed and their performance characteristics determined by the clinical laboratories of [facility]. They have not been cleared by the US Food and Drug Administration (FDA). The FDA has determined that such clearance or approval is not necessary. All the above immunostains were performed on paraffin embedded tissue. Appropriate positive and negative controls (where applicable) were run in parallel with the patient's specimen; these controls showed expected staining pattern, with acceptable intensity of staining. Immunohistochemical assays have not been validated on decalcified tissues. Results should be interpreted with caution given the raised possibility of false negativity on decalcified specimens. Case reviewed at [facility] [address] [place] [address]. DEPARTMENT OF PATHOLOGY AND LABORATORY MEDICINE [place], [place] [address] Normal [facility] Basic Metabolic Panelon 12-01 Anion gap [Moles/Vol] 7 mmol/L [place] Calcium [Mass/Vol] 8.8 mg/dL 8.4 - 10. 4 mg/dL [place] Chloride [Moles/Vol] 106 mmol/L 98 - 107 mmol/L [place] CO2 [Moles/Vol] 24 mmol/L 22 - 30 mmol/L [place] Creatinine [Mass/Vol] 0.76 mg/dL 0.52 - 1.25 mg/dL [place] EGFR IF NonAfrican Taiwanese >60.0 >60 mL/min [place] Comment on above: Source- MDRD equatio n with creatinine calibration to IDMS(NKDEP) eGFR not recommended for drug dose adjustment GFR/1.73 sq M predicted among blacks MDRD (S/P/Bld) [Vol rate/Area] mL/min/{1.73_m2} >60 mL/min [place] Glucose [Mass/Vol] 108 mg/dL High 70 - 100 mg/dL [place] Interpretation and review of laboratory results Abnormal [place] Potassium [Moles/Vol] 5.0 mmol/L 3.5 - 5.1 mmol/L [place] Sodium [Moles/Vol] 137 mmol/L 135 - 145 mmol/L [place] Urea nitrogen [Mass/Vol] 14 mg/dL 7 - 20 mg/dL [place] Test Performed by [facility], [address], [place], [place] [address] specimen slighltly hemolyzed [place] CBCon 12-16-2018 Erythrocyte distribution width (RBC) [Ratio] 14.2 % 11.5 - 14.5 % [place] Hematocrit (Bld) [Volume fraction] 40.0 % 35 - 47 % [place] Hemoglobin (Bld) [Mass/Vol] 13.2 g/dL 11.7 - 16 g/dL [place] Interpretation and review of laboratory results Abnormal [place] MCH (RBC) [Entitic mass] 30.2 pg 26 - 34 pg [place] MCHC (RBC) [Mass/Vol] 33.0 % 32 - 36 % [place] MCV (RBC) [Entitic vol] 91.3 fL 79 - 98 fL [place] Platelet mean volume (Bld) [Entitic vol] 8.1 fL 7.4 - 10.4 fL [place] Platelets (Bld) [#/Vol] 591 10*3/uL High 140 - 440 10*3/uL [place] RBC (Bld) [#/Vol] 4.38 10*6/uL 3.8 - 5.2 10*6/uL [place] WBC (Bld) [#/Vol] 14.1 10*3/uL High 3.6 - 10.7 10*3/uL [place] Test Performed by [facility], [address] Abdomen Pelvis W Contrast on 11-14-2018 Patient Name: CHINA ORTIZ ---CT--- Exam Date/Time 11/14/2018 11:30:[address] Abdomen/Pelvis w/ IV Contrast (IV Onl Ordering Physician PARAS WEAVER RYAN C Accession Number [id number] CPT4 Codes 42141 (CT Abdomen/Pelvis w/ IV Contrast (IV Onl), Q9967 (CT ISOVUE 370MG/ML&[id number]&ML&[id number] ) Reason For Exam recurrent incisional hernia Report CT ABDOMEN AND PELVIS WITH CONTRAST CLINICAL INDICATION: Recurrent incisional hernia Axial CT images of the abdomen and pelvis were acquired after the administration of intravenous contrast. 75 ml of Isovue 370 contrast was given intravenously. Oral contrast was also given for this examination. COMPARISON: 01/03/2017 FINDINGS: There is decreased density of the liver parenchyma consistent with fatty infiltration. There are multiple tiny hypodensities measuring less than 1 cm scattered throughout the liver which are likely to represent cysts, however are too small to definitively characterize. These appear similar to the study from 2017. The gallbladder has been removed. The pancreatic tail and spleen have been resected. There are lobulated enhancing soft tissue densities within the left upper quadrant of the abdomen which are similar to the study from 2017 likely representing residual splenules. The adrenal glands and kidneys appear grossly normal. The abdominal aorta is normal in caliber. There is no retroperitoneal, pelvic, or inguinal lymphadenopathy. The urinary bladder appears grossly normal. The uterus is heterogeneous in appearance, likely reflecting fibroids. There is a small, fat-containing periumbilical hernia. No additional hernia defect is seen within the abdominal wall. Large and small bowel loops appear within normal limits without evidence of wall thickening or dilatation. There is no free fluid within the abdomen or pelvis. There is no free air under the diaphragm. The visualized portion of the lung bases appear clear. IMPRESSION: Small fat-containing periumbilical hernia. No evidence of bowel obstruction is identified. Postoperative changes consistent with cholecystectomy, distal pancreatectomy, and splenectomy. These findings appear stable when compared to the study from 01/03/2017. Fatty infiltration of the liver. Numerous subcentimeter hypodensities scattered within the liver are likely to represent cysts, however are too small to characterize. These appear similar in size and number to the prior study. Report Dictated on --- Final --- Dictating Physician: MD HAYS JONATHAN R Signed Date and Time: 11/14/2018 2:53 pm Signed by: MD HAYS JONATHAN R Transcribed Date and Time: 11/14/2018 2:54 [facility], [place], [facility] Incoming Radiology Results From [facility] - 11/14/2018 2:55 PM EDT Patient Name: CHINA ORTIZ ---CT--- Exam Date/Time 11/14/2018 11:30:[address] Abdomen/Pelvis w/ IV Contrast (IV Onl Ordering Physician PARAS WEAVRE RYAN C Accession Number [id number] CPT4 Codes 63497 (CT Abdomen/Pelvis w/ IV Contrast (IV Onl), Q9967 (CT ISOVUE 370MG/ML&[id number]&ML&1 ) Reason For Exam recurrent incisional hernia Report CT ABDOMEN AND PELVIS WITH CONTRAST CLINICAL INDICATION: Recurrent incisional hernia Axial CT images of the abdomen and pelvis were acquired after the administration of intravenous contrast. 75 ml of Isovue 370 contrast was given intravenously. Oral contrast was also given for this examination. COMPARISON: 01/03/2017 FINDINGS: There is decreased density of the liver parenchyma consistent with fatty infiltration. There are multiple tiny hypodensities measuring less than 1 cm scattered throughout the liver which are likely to represent cysts, however are too small to definitively characterize. These appear similar to the study from 2017. The gallbladder has been removed. The pancreatic tail and spleen have been resected. There are lobulated enhancing soft tissue densities within the left upper quadrant of the abdomen which are similar to the study from 2017 likely representing residual splenules. The adrenal glands and kidneys appear grossly normal. The abdominal aorta is normal in caliber. There is no retroperitoneal, pelvic, or inguinal lymphadenopathy. The urinary bladder appears grossly normal. The uterus is heterogeneous in appearance, likely reflecting fibroids. There is a small, fat-containing periumbilical hernia. No additional hernia defect is seen within the abdominal wall. Large and small bowel loops appear within normal limits without evidence of wall thickening or dilatation. There is no free fluid within the abdomen or pelvis. There is no free air under the diaphragm. The visualized portion of the lung bases appear clear. IMPRESSION: Small fat-containing periumbilical hernia. No evidence of bowel obstruction is identified. Postoperative changes consistent with cholecystectomy, distal pancreatectomy, and splenectomy. These findings appear stable when compared to the study from 01/03/2017. Fatty infiltration of the liver. Numerous subcentimeter hypodensities scattered within the liver are likely to represent cysts, however are too small to characterize. These appear similar in size and number to the prior study. Report Dictated on --- Final --- Dictating Physician: MD HAYS JONATHAN R Signed Date and Time: 11/14/2018 2:53 pm Signed by: MD HAYS JONATHAN R Transcribed Date and Time: 11/14/2018 2:54 [place], [place] Creatinine, Serumon 11-12-19 19 Creatinine [Mass/Vol] 0.85 mg/dL 0.52 - 1.25 mg/dL [facility] [place] [place] EGFR IF NonAfrican Taiwanese >60.0 >60 mL/min [place], [place] Comment on above: Source- MDRD equatio n with creatinine calibration to IDMS(NKDEP) eGFR not recommended for drug dose adjustment GFR/1.73 sq M predicted among blacks MDRD (S/P/Bld) [Vol rate/Area] mL/min/{1.73_m2} >60 mL/min [facility] [place] [place] Test Performed by [facility], [address] [place], [place] [address] , [address] Vital Signs Date Time Vital Sign Value Performing Clinician Facility 10-09-2024 09:44-0400 Body height 157.[address] 10-09-2024 09:44-0400 Body mass index (BMI) [Ratio] 34.75 kg/m2 [address] 10-09-2024 09:44-0400 Body weight 86.[address] 08-19-2024 14:18-0400 Body height 157.5 cm Giselle Boykin MD Work Phone: [facility] 08-19-2024 14:18-0400 Body mass index (BMI) [Ratio] 34.88 kg/m2 Giselle Boykin MD Work Phone: [facility] 08-19-2024 14:18-0400 Body temperature 97 [degF] Giselle Boykin MD Work Phone: [facility] 08-19-2024 14:18-0400 Body weight 86.5 kg Giselle Boykin MD Work Phone: [facility] 08-19-2024 14:18-0400 Diastolic blood pressure 90 mm[Hg] Giselle Boykin MD Work Phone: [facility] 08-19-2024 14:18-0400 Heart rate 68 /min Giselle Boykin MD Work Phone: [facility] 08-19-2024 14:18-0400 SaO2% (BldA) [Mass fraction] 97 % Giselle Boykin MD Work Phone: [facility] 08-19-2024 14:18-0400 Systolic blood pressure 111 mm[Hg] Giselle Boykin MD Work Phone: 6(681)920-763063 [place] [address] 05-07-2024 10:49-0500 Body height 157.5 cm Giselle Boykin MD Work Phone: 7(256)[phone] [place] [address] 05-07-2024 10:49-0500 Body mass index (BMI) [Ratio] 35.12 kg/m2 Giselle Boykin MD Work Phone: 3(128)[phone] [place] [address] 05-07-2024 10:49-0500 Body temperature 97.3 [degF] Giselle Boykin MD Work Phone: 8(689)199-934263 [place] [address] 05-07-2024 10:49-0500 Body weight 87.1 kg Giselle Boykin MD Work Phone: [facility] 05-07-2024 10:49-0500 Diastolic blood pressure 81 mm[Hg] Giselle Boykin MD Work Phone: [facility] 05-07-2024 10:49-0500 Heart rate 78 /min Giselle Boykin MD Work Phone: [facility] 05-07-2024 10:49-0500 SaO2% (BldA) [Mass fraction] 99 % Giselle Boykin MD Work Phone: [facility] 05-07-2024 10:49-0500 Systolic blood pressure 102 mm[Hg] Giselle Boykin MD Work Phone: 2(315)941-672263 [place] [address] 05-07-2024 10:44-0500 Body height 157.5 cm Maura Lange MD Work Phone: 7(067)769-873963 [place] [address] 05-07-2024 10:44-0500 Body mass index (BMI) [Ratio] 35.14 kg/m2 Maura Lange MD Work Phone: [facility] 05-07-2024 10:44-0500 Body temperature 97.3 [degF] Maura Lange MD Work Phone: [facility] 05-07-2024 10:44-0500 Body weight 87.14 kg Maura Lange MD Work Phone: [facility] 05-07-2024 10:44-0500 Diastolic blood pressure 81 mm[Hg] Maura Lange MD Work Phone: [facility] 05-07-2024 10:44-0500 Heart rate 78 /min Maura Lange MD Work Phone: [facility] 05-07-2024 10:44-0500 SaO2% (BldA) [Mass fraction] 99 % Maura Lange MD Work Phone: [facility] 05-07-2024 10:44-0500 Systolic blood pressure 102 mm[Hg] Maura Lange MD Work Phone: [facility] 04-29-2024 14:27-0500 Body mass index (BMI) [Ratio] 36.58 kg/m2 Stephanie Wilder WAREHOUSE 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[employer] D[employer] MANAGER Work Phone: [facility] 04-29-2024 14:27-0500 Body temperature 98.6 [degF] Stephanie Wilder WAREHOUSE 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[employer] DUTY MANAGER Work Phone: [facility] 04-29-2024 14:27-0500 Body weight 90.72 kg Stephanie Wilder WAREHOUSE 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[employer] DUTY MANAGER Work Phone: [facility] 04-29-2024 14:27-0500 Diastolic blood pressure 80 mm[Hg] Stephanie Wilder WAREHOUSE 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[employer] DUTY MANAGER Work Phone: [facility] 04-29-2024 14:27-0500 Heart rate 95 /min Stephanie Wilder WAREHOUSE 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[employer] DUTY MANAGER Work Phone: [facility] 04-29-2024 14:27-0500 Respiratory rate 18 /min Stephanie Wilder WAREHOUSE 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[employer] DUTY MANAGER Work Phone: [facility] 04-29-2024 14:27-0500 SaO2% (BldA) [Mass fraction] 97 % Stephanie Wilder WAREHOUSE 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[employer] DUTY MANAGER Work Phone: [facility] 04-29-2024 14:27-0500 Systolic blood pressure 112 mm[Hg] Stephanie Wilder WAREHOUSE 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[employer] DUTY MANAGER Work Phone: [facility] 03-20-2024 10:26-0500 Body height 157.5 cm Giselle Boykin MD Work Phone: [facility] 03-20-2024 10:26-0500 Body mass index (BMI) [Ratio] 36.85 kg/m2 Giselle Boykin MD Work Phone: [facility] 03-20-2024 10:26-0500 Body temperature 97.2 [degF] Giselle Boykin MD Work Phone: [facility] 03-20-2024 10:26-0500 Body weight 91.4 kg Giselle Boykin MD Work Phone: [facility] 03-20-2024 10:26-0500 Diastolic blood pressure 99 mm[Hg] Giselle Boykin MD Work Phone: [facility] 03-20-2024 10:26-0500 Heart rate 74 /min Giselle Boykin MD Work Phone: [facility] 03-20-2024 10:26-0500 SaO2% (BldA) [Mass fraction] 98 % Giselle Boykin MD Work Phone: [facility] 03-20-2024 10:26-0500 Systolic blood pressure 143 mm[Hg] Giselle Boykin MD Work Phone: [facility] 11-27-2023 11:28-0400 Body height 157.5 cm Yasmine Lopez WAREHOUSE OPERATIONS MANAGER-[employer] DUTY MANAGER Work Phone: [facility] 11-27-2023 11:28-0400 Body mass index (BMI) [Ratio] 36.62 kg/m2 Yasmine Lopez WAREHOUSE OPERATIONS MANAGER-[employer] DUTY MANAGER Work Phone: [facility] 11-27-2023 11:28-040 Body temperature 97.2 [degF] Yasmine Lopez WAREHOUSE OPERATIONS MANAGER-[employer] DUTY MANAGER Work Phone: [facility] 11-27-2023 11:28-040 Body weight 90.81 kg Yasmine Lopez WAREHOUSE OPERATIONS MANAGER-[employer] DUTY MANAGER Work Phone: [facility] 11-27-2023 11:28-0400 Diastolic blood pressure 111 mm[Hg] Yasmine Lopez WAREHOUSE OPERATIONS MANAGER-[employer] DUTY MANAGER Work Phone: [facility] 11-27-2023 11:28-0400 Heart rate 81 /min Yasmine Lopez WAREHOUSE OPERATIONS MANAGER-[employer] DUTY MANAGER Work Phone: [facility] 11-27-2023 11:28-0400 SaO2% (BldA) [Mass fraction] 95 % Yasmine Lopez WAREHOUSE OPERATIONS MANAGER-[employer] DUTY MANAGER Work Phone: [facility] 11-27-2023 11:28-0400 Systolic blood pressure 152 mm[Hg] Yasmine Lopez WAREHOUSE OPERATIONS MANAGER-[employer] DUTY MANAGER Work Phone: [facility] 11-15-2023 00:46-0400 Diastolic Blood Pressure Non-Invasive 90 mm[Hg] HARSH CEDILLO DO [facility] 11-15-2023 00:46-0400 Heart rate 76 /min HARSH CEDILLO DO [facility] 11-15-2023 00:46-0400 Respiratory rate 20 /min HARSH CEDILLO DO [facility] 11-15-2023 00:46-0400 Systolic Blood Pressure Non-Invasive 143 mm[Hg] HARSH CEDILLO DO [facility] 11-14-2023 21:48-0400 Diastolic Blood Pressure Non-Invasive 99 mm[Hg] HARSH CEDILLO DO [facility] 11-14-2023 21:48-0400 Heart rate 72 /min HARSH CEDILLO DO [facility] 11-14-2023 21:48-0400 Respiratory rate 18 /min HARSH CEDILLO DO [facility] 11-14-2023 21:48-0400 Systolic Blood Pressure Non-Invasive 179 mm[Hg] HARSH CEDILLO DO [facility] 11-14-2023 20:18-0400 Diastolic Blood Pressure Non-Invasive 92 mm[Hg] HARSH CEDILLO DO [facility] 11-14-2023 20:18-0400 Heart rate 70 /min HARSH CEDILLO DO [facility] 11-14-2023 20:18-0400 Respiratory rate 16 /min HARSH CEDILLO DO [facility] 11-14-2023 20:18-0400 Systolic Blood Pressure Non-Invasive 158 mm[Hg] HARSH CEDILLO DO [facility] 11-14-2023 18:42-0400 Body temperature 98.06 [degF] HARSH CEDILLO DO [facility] 11-14-2023 18:42-0400 Body weight 89.4 kg HARSH CEDILLO DO [facility] 11-14-2023 18:42-0400 Heart rate 80 /min HARSH CEDILLO DO [facility] 10-02-2023 16:00-0400 Heart rate 65 /min MAXINE BLAIR MD [facility] 10-02-2023 15:42-0400 Blood Pressure Cuff Size MAXINE BLAIR MD [facility] 10-02-2023 15:42-0400 Blood Pressure Location MAXINE BLAIR MD [address] 10-02-2023 15:42-0400 Blood Pressure Method MAXINE BLAIR MD [address] [place] [address] 10-02-2023 15:42-0400 Body temperature 97.88 [degF] MAXINE BLAIR MD [address] [place] [address] 10-02-2023 15:42-0400 Diastolic Blood Pressure Non-Invasive 80 mm[Hg] MAXINE BLAIR MD [address] [place] [address] 10-02-2023 15:42-0400 Heart rate 67 /min MAXINE BLAIR MD [address] [place] [address] 10-02-2023 15:42-0400 Reason For Taking VItal Signs MAXINE BLAIR MD [address] [place] [address] 10-02-2023 15:42-0400 Respiratory rate 16 /min MAXINE BLAIR MD [address] [place] [address] 10-02-2023 15:42-0400 Systolic Blood Pressure Non-Invasive 138 mm[Hg] MAXINE BLAIR MD [address] [place] [address] 10-02-2023 14:59-0400 Heart rate 66 /min MAXINE BLAIR MD [address] [place] [address] 10-02-2023 10:24-0400 Heart rate 67 /min MAXINE BLAIR MD [address] [place] [address] 10-02-2023 09:47-0400 Blood Pressure Cuff Size MAXINE BLAIR MD [address] [place] [address] 10-02-2023 09:47-0400 Blood Pressure Location MAXINE BLAIR MD [address] [place] [address] 10-02-2023 09:47-0400 Blood Pressure Method MAXINE BLAIR MD [address] [place] [address] 10-02-2023 09:47-0400 Body temperature 98.06 [degF] MAXINE BLAIR MD [address] [place] [address] 10-02-2023 09:47-0400 Diastolic Blood Pressure Non-Invasive 89 mm[Hg] MAXINE BLAIR MD [address] [place] [address] 10-02-2023 09:47-0400 Mean blood pressure 100 mm[Hg] MAXINE BLAIR MD [address] [place] [address] 10-02-2023 09:47-0400 Respiratory rate 18 /min MAXINE BLAIR MD [address] [place] [address] 10-02-2023 09:47-0400 Systolic Blood Pressure Non-Invasive 138 mm[Hg] MAXINE BLAIR MD [address] [place] [address] 10-02-2023 04:50-0400 Body weight 90.2 kg MAXINE BLAIR MD [address] [place] [address] 10-02-2023 04:39-0400 Blood Pressure Cuff Size MAXINE BLAIR MD [address] [place] [address] 10-02-2023 04:39-0400 Blood Pressure Location MAXINE BLAIR MD [address] [place] [address] 10-02-2023 04:39-0400 Blood Pressure Method MAXINE BLAIR MD [address] [place] [address] 10-02-2023 04:39-0400 Body temperature 98.24 [degF] MAXINE BLAIR MD [address] [place] [address] 10-02-2023 04:39-0400 Diastolic Blood Pressure Non-Invasive 78 mm[Hg] MAXINE BLAIR MD [address] [place] [address] 10-02-2023 04:39-0400 Respiratory rate 17 /min MAXINE BLAIR MD [address] [place] [address] 10-02-2023 04:39-0400 Systolic Blood Pressure Non-Invasive 139 mm[Hg] MAXINE BLAIR MD [address] [place] [address] 10-01-2023 22:11-0400 Heart rate 68 /min MAXINE BLAIR MD [address] [place] [address] 10-01-2023 22:11-0400 Heart rate 77 /min MAXINE BLAIR MD [address] [place] [address] 10-01-2023 08:51-0400 Heart rate 71 /min MAXINE BLAIR MD [address] [place] [address] 09-30-2023 22:00-0400 Heart rate 72 /min MAXINE BLAIR MD [facility] 09-30-2023 19:38-0400 Body height 157.5 cm MAXINE BLAIR MD [facility] 09-30-2023 19:38-0400 Body weight 91.1 kg MAXINE BLAIR MD [address] [place] [address] 09-30-2023 19:38-0400 Body weight 36.72 kg/m2 MAXINE BLAIR MD [address] [place] [address] 09-30-2023 19:16-0400 Mean blood pressure 110 mm[Hg] MAXINE BLAIR MD [address] 09-30-2023 18:37-0400 Mean blood pressure 116 mm[Hg] MAXINE BLAIR MD [address] 09-30-2023 14:11-0400 Body weight 91.2 kg MAXINE BLAIR MD [facility] 09-30-2023 14:11-0400 Heart rate 71 /min MAXINE BLAIR MD [facility] 09-19-2023 10:45-0400 Diastolic blood pressure 88 mm[Hg] Giselle Boykin MD Work Phone: [facility] 09-19-2023 10:45-0400 Systolic blood pressure 138 mm[Hg] Giselle Boykin MD Work Phone: [facility] 09-19-2023 10:30-0400 Body height 157.5 cm Giselle Boykin MD Work Phone: [facility] 09-19-2023 10:30-0400 Body mass index (BMI) [Ratio] 36.71 kg/m2 Giselle Boykin MD Work Phone: [facility] 09-19-2023 10:30-0400 Body temperature 96.4 [degF] Giselle Boykin MD Work Phone: [facility] 09-19-2023 10:30-0400 Body weight 91.04 kg Giselle Boykin MD Work Phone: [facility] 09-19-2023 10:30-0400 Heart rate 70 /min Giselle Boykin MD Work Phone: [facility] 09-19-2023 10:30-0400 SaO2% (BldA) [Mass fraction] 95 % Giselle Boykin MD Work Phone: [facility] 05-03-2023 10:42-0500 Body mass index (BMI) [Ratio] 35.81 kg/m2 Maura Lange MD Work Phone: [facility] 05-03-2023 10:42-0500 Body temperature 97.3 [degF] Maura Lange MD Work Phone: [facility] 05-03-2023 10:42-0500 Body weight 88.81 kg Maura Lange MD Work Phone: [facility] 05-03-2023 10:42-0500 Diastolic blood pressure 95 mm[Hg] Maura Lange MD Work Phone: [facility] 05-03-2023 10:42-0500 Heart rate 70 /min Maura Lange MD Work Phone: [facility] 05-03-2023 10:42-0500 SaO2% (BldA) [Mass fraction] 98 % Maura Lange MD Work Phone: [facility] 05-03-2023 10:42-0500 Systolic blood pressure 125 mm[Hg] Maura Lange MD Work Phone: [facility] 03-20-2023 14:46-0500 Body height 157.5 cm Giselle Boykin MD Work Phone: [facility] 03-20-2023 14:46-0500 Body mass index (BMI) [Ratio] 36.03 kg/m2 Giselle Boykin MD Work Phone: [facility] 03-20-2023 14:46-0500 Body temperature 97.11 [degF] Giselle Boykin MD Work Phone: [facility] 03-20-2023 14:46-0500 Body weight 89.36 kg Giselle Boykin MD Work Phone: [facility] 03-20-2023 14:46-0500 Diastolic blood pressure 92 mm[Hg] Giselle Boykin MD Work Phone: [facility] 03-20-2023 14:46-0500 Heart rate 85 /min Giselle Boykin MD Work Phone: [facility] 03-20-2023 14:46-0500 SaO2% (BldA) [Mass fraction] 99 % Giselle Boykin MD Work Phone: [facility] 03-20-2023 14:46-0500 Systolic blood pressure 125 mm[Hg] Giselle Boykin MD Work Phone: [facility] 01-31-2023 10:11-0400 Diastolic blood pressure 75 mm[Hg] Christopher Pluskota DO Work Phone: [facility] 01-31-2023 10:11-0400 Heart rate 81 /min Christopher Pluskota DO Work Phone: [facility] 01-31-2023 10:11-0400 Respiratory rate 17 /min Christopher Pluskota DO Work Phone: [facility] 01-31-2023 10:11-0400 SaO2% (BldA) [Mass fraction] 100 % Christopher Pluskota DO Work Phone: [facility] 01-31-2023 10:11-0400 Systolic blood pressure 121 mm[Hg] Christopher Pluskota DO Work Phone: [facility] 01-31-2023 09:57-0400 Body temperature 97.9 [degF] Christopher Pluskota DO Work Phone: [facility] 01-31-2023 [id number] Body height 157.5 cm Christopher Pluskota DO Work Phone: [facility] 01-31-2023 [id number] Body mass index (BMI) [Ratio] 35.85 kg/m2 Christopher Pluskota DO Work Phone: [facility] 01-31-2023 09:11040 Body weight 88.91 kg Christopher Pluskota DO Work Phone: [facility] 11-01-2022 10:51-0400 Body height 160.02 cm Giselle Boykin Work Phone: [employer] [facility] Work Phone: 11-01-2022 10:51-0400 Body mass index (BMI) [Ratio] 34.72 kg/m2 Giselle Boykin Work Phone: [employer] [facility] Work Phone: 11-01-2022 10:51-0400 Body surface area Derived from formula 1.92 m2 Giselle Boykin Work Phone: [employer] [facility] Work Phone: 11-01-2022 10:51-0400 Body temperature 96.8 [degF] Giselle Boykin Work Phone: [employer] [facility] Work Phone: 11-01-2022 10:51-0400 Body weight 88.91 kg Giselle Boykin Work Phone: [employer] Work Phone: 11-01-2022 10:51-0400 Diastolic blood pressure 91 mm[Hg] Giselle Boykin Work Phone: [facility] Work Phone: 11-01-2022 10:51-0400 Heart rate 74 /min Giselle E Boykin Work Phone: [facility] Work Phone: 11-01-2022 10:51-0400 SaO2% (BldA) [Mass fraction] 98 % Giselle Guoers Work Phone: [facility] Work Phone: 11-01-2022 10:51-0400 Systolic blood pressure 131 mm[Hg] Giselle Guoers Work Phone: [facility] Work Phone: 11-01-2022 10:51-0400 3 1 Gisellejesusita Guoers Work Phone: [facility] Work Phone: Comment on above: [employer] 10-10-2022 10:36-0400 Body mass index (BMI) [Ratio] 36 kg/m2 Giselle Guoers Work Phone: [facility] Work Phone: 10-10-2022 10:36-0400 Body surface area Derived from formula 1.95 m2 Giselle Guoers Work Phone: [facility] Work Phone: 10-10-2022 10:36-0400 Body temperature 79.2 [degF] Giselle Guoers Work Phone: [facility] Work Phone: 10-10-2022 10:36-0400 Body weight 92.19 kg Giselle Guoers Work Phone: [facility] Work Phone: 10-10-2022 10:36-0400 Diastolic blood pressure 96 mm[Hg] Giselle Boykin Work Phone: [employer] Work Phone: 10-10-2022 10:36-0400 Heart rate 70 /min Giselle Boykin Work Phone: [employer] Work Phone: 10-10-2022 10:36-0400 SaO2% (BldA) [Mass fraction] 94 % Giselle Boykin Work Phone: [employer] [facility] Work Phone: 10-10-2022 10:36-0400 Systolic blood pressure 154 mm[Hg] Giselle Boykin Work Phone: [facility] Work Phone: 08-30-2022 14:46-0400 Body height 160.02 cm Giselle Boykin Work Phone: [facility] Work Phone: 08-30-2022 14:46-0400 Body mass index (BMI) [Ratio] 35.43 kg/m2 Giselle Boykin Work Phone: [facility] Work Phone: 08-30-2022 14:46-0400 Body surface area Derived from formula 1.93 m2 Giselle Laya Boykin Work Phone: [facility] Work Phone: 08-30-2022 14:46-0400 Body temperature 97.2 [degF] Giselle Laya Boykin Work Phone: [facility] Work Phone: 08-30-2022 14:46-0400 Body weight 90.72 kg Giselle Laya Boykin Work Phone: [facility] Work Phone: 08-30-2022 14:46-0400 Diastolic blood pressure 112 mm[Hg] Giselle Boykin Work Phone: [employer] [facility] Work Phone: 08-30-2022 14:46-0400 Heart rate 72 /min Giselle Boykin Work Phone: [employer] [facility] Work Phone: 08-30-2022 14:46-0400 SaO2% (BldA) [Mass fraction] 96 % Giselle Boykin Work Phone: [employer] [facility] Work Phone: 08-30-2022 14:46-0400 Systolic blood pressure 162 mm[Hg] Giselle Laya Boykin Work Phone: [facility] Work Phone: 05-08-2022 09:53-0500 Body mass index (BMI) [Ratio] 34.92 kg/m2 Giselle Boykin Work Phone: [facility] Work Phone: 05-08-2022 09:53-0500 Body surface area Derived from formula 1.92 m2 Giselle Boykin Work Phone: [facility] Work Phone: 05-08-2022 09:53-0500 Body temperature 97 [degF] Giselle Laya Boykin Work Phone: [facility] Work Phone: 05-08-2022 09:53-0500 Body weight 89.42 kg Giselle Laya Boykin Work Phone: [facility] Work Phone: 05-08-2022 09:53-0500 Diastolic blood pressure 89 mm[Hg] Giselle Guoers Work Phone: [employer] Work Phone: 05-08-2022 09:53-0500 Heart rate 70 /min Giselle Guoers Work Phone: [employer] [facility] Work Phone: 05-08-2022 09:53-0500 SaO2% (BldA) [Mass fraction] 95 % Giselle Guoers Work Phone: [employer] [facility] Work Phone: 05-08-2022 09:53-0500 Systolic blood pressure 131 mm[Hg] Giselle Boykin Work Phone: [employer] Work Phone: 05-03-2022 10:50-0500 Body height 160.02 cm Giselle Boykin Work Phone: [employer] Work Phone: 05-03-2022 10:50-0500 Body mass index (BMI) [Ratio] 34.93 kg/m2 Giselle Boykin Work Phone: [employer] Work Phone: 05-03-2022 10:50-0500 Body surface area Derived from formula 1.92 m2 Giselle Boykin Work Phone: [employer] Work Phone: 05-03-2022 10:50-0500 Body temperature 97.3 [degF] Giselle Boykin Work Phone: [employer] Work Phone: 05-03-2022 10:50-0500 Body weight 89.45 kg Giselle Boykin Work Phone: [facility] Work Phone: 05-03-2022 10:50-0500 Diastolic blood pressure 90 mm[Hg] Giselle Boykin Work Phone: [employer] [facility] Work Phone: 05-03-2022 10:50-0500 Heart rate 73 /min Giselle Boykin Work Phone: [employer] [facility] Work Phone: 05-03-2022 10:50-0500 Respiratory rate 18 /min Giselel Boykin Work Phone: [employer] [facility] Work Phone: 05-03-2022 10:50-0500 SaO2% (BldA) [Mass fraction] 98 % Giselle Boykin Work Phone: [employer] [facility] Work Phone: 05-03-2022 10:50-0500 Systolic blood pressure 122 mm[Hg] Giselle Boykin Work Phone: [employer] [facility] Work Phone: 04-04-2022 10:55-0500 Body mass index (BMI) [Ratio] 35.51 kg/m2 Giselle Boykin Work Phone: [employer] Work Phone: 04-04-2022 10:55-0500 Body surface area Derived from formula 1.94 m2 Giselle Boykin Work Phone: [employer] Work Phone: 04-04-2022 10:55-0500 Body temperature 96.6 [degF] Giselle Laya Boykin Work Phone: [employer] Work Phone: 04-04-2022 10:55-0500 Body weight 90.92 kg Giselle Laya Boykin Work Phone: [employer] [facility] Work Phone: 04-04-2022 10:55-0500 Diastolic blood pressure 87 mm[Hg] Giselle Boykin Work Phone: [facility] Work Phone: 04-04-2022 10:55-0500 Heart rate 59 /min Giselle Boykin Work Phone: [facility] Work Phone: 04-04-2022 10:55-0500 SaO2% (BldA) [Mass fraction] 98 % Giselle Boykin Work Phone: [facility] Work Phone: 04-04-2022 10:55-0500 Systolic blood pressure 132 mm[Hg] Giselle Boykin Work Phone: [facility] Work Phone: 12-31-2021 12:54-0400 Body temperature 98.71 [degF] Koby Braun WAREHOUSE 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[employer]IR[employer] DUTY MANAGER Work Phone: [facility] 12-31-2021 12:54-0400 Body weight 91.17 kg Kobylaya Braun WAREHOUSE 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[employer] DUTY MANAGER Work Phone: [facility] 12-31-2021 12:54-0400 Diastolic blood pressure 85 mm[Hg] Koby Yahir WAREHOUSE 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[employer] DUTY MANAGER Work Phone: [facility] 12-31-2021 12:54-0400 Heart rate 99 /min Koby Yahir WAREHOUSE 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[employer] DUTY MANAGER Work Phone: [facility] 12-31-2021 12:54-0400 Respiratory rate 18 /min Koby Yahir WAREHOUSE 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[employer] DUTY MANAGER Work Phone: [facility] 12-31-2021 12:54-0400 SaO2% (BldA) [Mass fraction] 97 % Kobylaya Braun WAREHOUSE 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[employer]IR[employer] DUTY MANAGER Work Phone: [facility] 12-31-2021 12:54-0400 Systolic blood pressure 130 mm[Hg] Koby Braun APRN.CNP Work Phone: [facility] 10-27-2021 11:41-0400 Body height 160.02 cm Giselle Boykin Work Phone: [employer] [facility] Work Phone: 10-27-2021 11:41-0400 Body mass index (BMI) [Ratio] 35.43 kg/m2 Giselle Laya Alejandro Work Phone: [employer] [facility] Work Phone: 10-27-2021 11:41-0400 Body surface area Derived from formula 1.93 m2 Giselle E Boykin Work Phone: [employer] [facility] Work Phone: 10-27-2021 11:41-0400 Body temperature 97.2 [degF] Giselle Boykin Work Phone: [employer] [facility] Work Phone: 10-27-2021 11:41-0400 Body weight 90.72 kg Giselle Boykin Work Phone: [employer] [facility] Work Phone: 10-27-2021 11:41-0400 Diastolic blood pressure 85 mm[Hg] Giselle Guoers Work Phone: [employer] [facility] Work Phone: 10-27-2021 11:41-0400 Heart rate 75 /min Giselle Guoers Work Phone: [employer] [facility] Work Phone: 10-27-2021 11:41-0400 SaO2% (BldA) [Mass fraction] 97 % Giselle Guoers Work Phone: [employer] [facility] Work Phone: 10-27-2021 11:41-0400 Systolic blood pressure 130 mm[Hg] Giselle Guoers Work Phone: [facility] Work Phone: 09-14-2021 15:15-0400 Body mass index (BMI) [Ratio] 35.09 kg/m2 Giselle Guoers Work Phone: [employer] [facility] Work Phone: 09-14-2021 15:15-0400 Body surface area Derived from formula 1.93 m2 Giselle Boykin Work Phone: [facility] Work Phone: 09-14-2021 15:15-0400 Body temperature 97.5 [degF] Giselle Guoers Work Phone: [facility] Work Phone: 09-14-2021 15:15-0400 Body weight 89.84 kg Giselle Guoers Work Phone: [facility] Work Phone: 09-14-2021 15:15-0400 Diastolic blood pressure 64 mm[Hg] Giselle Guoers Work Phone: [facility] Work Phone: 09-14-2021 15:15-0400 Heart rate 85 /min Giselle Guoers Work Phone: [facility] Work Phone: 09-14-2021 15:15-0400 SaO2% (BldA) [Mass fraction] 98 % Giselle Boykin Work Phone: [facility] Work Phone: 09-14-2021 15:15-0400 Systolic blood pressure 84 mm[Hg] Giselle Boykin Work Phone: [facility] Work Phone: 08-31-2021 13:49-0400 Body temperature 97.6 [degF] Giselle Guoers Work Phone: CI-Bjxxkpvox-Vsvsx a 170 DO Work Phone: 08-31-2021 13:49-0400 Diastolic blood pressure 86 mm[Hg] Giselle Guoers Work Phone: FB-Shlrpukzr-Encga a 170 DO Work Phone: 08-31-2021 13:49-0400 Heart rate 80 /min Giselle Guoers Work Phone: TG-Zxmvalaat-Nedwf a 170 DO Work Phone: 08-31-2021 13:49-0400 Respiratory rate 16 /min Giselle Guoers Work Phone: VY-Vhckzbsiq-Jpvun a 170 DO Work Phone: 08-31-2021 13:49-0400 Systolic blood pressure 150 mm[Hg] Giselle Guoers Work Phone: AG-Avpkfjhwn-Hntzm a 170 DO Work Phone: 04-29-2021 11:09-0500 Body height 160.02 cm Giselle Guoers Work Phone: [facility] Work Phone: 04-29-2021 11:09-0500 Body mass index (BMI) [Ratio] 35.46 kg/m2 Giselle Guoers Work Phone: [facility] Work Phone: 04-29-2021 11:09-0500 Body surface area Derived from formula 1.93 m2 Giselle Boykin Work Phone: [facility] Work Phone: 04-29-2021 11:09-0500 Body temperature 97.1 [degF] Giselle Boykin Work Phone: [employer] [facility] Work Phone: 04-29-2021 11:09-0500 Body weight 90.81 kg Giselle Boykin Work Phone: [employer] [facility] Work Phone: 04-29-2021 11:09-0500 Diastolic blood pressure 69 mm[Hg] Giselle Boykin Work Phone: [employer] [facility] Work Phone: 04-29-2021 11:09-0500 Heart rate 71 /min Giselle Boykin Work Phone: [employer] [facility] Work Phone: 04-29-2021 11:09-0500 Respiratory rate 16 /min Giselle Boykin Work Phone: [employer] [facility] Work Phone: 04-29-2021 11:09-0500 SaO2% (BldA) [Mass fraction] 97 % Giselle Boykin Work Phone: [employer] [facility] Work Phone: 04-29-2021 11:09-0500 Systolic blood pressure 100 mm[Hg] Giselle Boykin Work Phone: [employer] [facility] Work Phone: 04-29-2021 11:09-0500 4 1 Giselle Boykin Work Phone: [employer] [facility] Work Phone: Comment on above: Jennyfer 03-15-2021 13:03-0500 Body mass index (BMI) [Ratio] 36.05 kg/m2 Giselle Laya Boykin Work Phone: [employer] [facility] Work Phone: 03-15-2021 13:03-0500 Body surface area Derived from formula 1.95 m2 Giselle Laya Alejandro Work Phone: [facility] Work Phone: 03-15-2021 13:03-0500 Body temperature 96.6 [degF] Giselle E Boykin Work Phone: [facility] Work Phone: 03-15-2021 13:03-0500 Body weight 92.31 kg Giselle E Boykin Work Phone: [facility] Work Phone: 03-15-2021 13:03-0500 Diastolic blood pressure 89 mm[Hg] Gisellejesusita Guoers Work Phone: [facility] Work Phone: 03-15-2021 13:03-0500 Heart rate 75 /min Giselle Laya Alejandro Work Phone: [facility] Work Phone: 03-15-2021 13:03-0500 SaO2% (BldA) [Mass fraction] 95 % Giselle Laya Boykin Work Phone: [facility] Work Phone: 03-15-2021 13:03-0500 Systolic blood pressure 116 mm[Hg] Giselle Guoers Work Phone: [facility] Work Phone: 11-15-2020 13:49-0400 Body temperature 96 [degF] Giselle Guoers Work Phone: EO-Ngrqgzneu-Bulbp a 170 DO Work Phone: 11-15-2020 13:49-0400 Diastolic blood pressure 90 mm[Hg] Giselle Guoers Work Phone: [facility] a 170 DO Work Phone: 11-15-2020 13:49-0400 Heart rate 84 /min Giselle Guoers Work Phone: DM-Ovfejylta-Jzaas a 170 DO Work Phone: 11-15-2020 13:49-0400 Respiratory rate 16 /min Giselle Guoers Work Phone: LI-Juqybcyev-Yjbqe a 170 DO Work Phone: 11-15-2020 13:49-0400 Systolic blood pressure 130 mm[Hg] Giselle Guoers Work Phone: [facility] a 170 DO Work Phone: 10-29-2020 11:29-0400 Body height 160.02 cm Giselle Guoers Work Phone: [facility] Work Phone: 10-29-2020 11:29-0400 Body mass index (BMI) [Ratio] 36.19 kg/m2 Giselle Guoers Work Phone: [facility] Work Phone: 10-29-2020 11:29-0400 Body surface area Derived from formula 1.95 m2 Giselle Guoers Work Phone: [facility] Work Phone: 10-29-2020 11:29-0400 Body temperature 97.5 [degF] Giselle Guoers Work Phone: [facility] Work Phone: 10-29-2020 11:29-0400 Body weight 92.68 kg Giselle Guoers Work Phone: [facility] Work Phone: 10-29-2020 11:29-0400 Diastolic blood pressure 82 mm[Hg] Giselle Boykin Work Phone: [facility] Work Phone: 10-29-2020 11:29-0400 Heart rate 74 /min Giselle Boykin Work Phone: [facility] Work Phone: 10-29-2020 11:29-0400 Respiratory rate 18 /min Giselle Boykin Work Phone: [facility] Work Phone: 10-29-2020 11:29-0400 SaO2% (BldA) [Mass fraction] 97 % Giselle Boykin Work Phone: [facility] Work Phone: 10-29-2020 11:29-0400 Systolic blood pressure 113 mm[Hg] Giselle Boykin Work Phone: [facility] Work Phone: 10-29-2020 11:29-0400 5 1 Giselle Boykin Work Phone: [facility] Work Phone: Comment on above: [employer] 08-05-2020 13:00-0400 Body mass index (BMI) [Ratio] 36.35 kg/m2 Giselle Laya Boykin Work Phone: [facility] [employer] [facility] Work Phone: 08-05-2020 13:00-0400 Body surface area Derived from formula 1.95 m2 Giselle Laya Boykin Work Phone: [facility] Work Phone: 08-05-2020 13:00-0400 Body temperature 96.8 [degF] Giselle Guoers Work Phone: [facility] Work Phone: 08-05-2020 13:00-0400 Body weight 93.07 kg Giselle Asif Boykin Work Phone: LI-Lzwqfylmi-WZCLH [facility] Work Phone: 08-05-2020 13:00-0400 Diastolic blood pressure 96 mm[Hg] Giselle Asif Boykin Work Phone: XK-Foelkxrah-TKUHL [employer] Work Phone: 08-05-2020 13:00-0400 Heart rate 67 /min Giselle Asif Boykin Work Phone: DJ-Jgwpsxiij-CSRAF [employer] Work Phone: 08-05-2020 13:00-0400 Systolic blood pressure 122 mm[Hg] Giselle Laya Boykin Work Phone: DV-Pyaxocwup-YPRWH [employer] Work Phone: 04-30-2020 12:53-0500 BMI (Body Mass Index) 34.37 kg/m2 Maura Lange [facility] Work Phone: 04-30-2020 12:53-0500 Body Temperature 97.4 [degF] Maura Lange [facility] Work Phone: 04-30-2020 12:53-0500 Body weight 88 kg Maura Lange [facility] Work Phone: 04-30-2020 12:53-0500 BP Diastolic 76 mm[Hg] Maura Lange [facility] Work Phone: 04-30-2020 12:53-0500 BP Systolic 110 mm[Hg] Maura Lange [facility] Work Phone: 04-30-2020 12:53-0500 BSA (Body Surface Area) 1.91 m2 Maura Lange [facility] Work Phone: 04-30-2020 12:53-0500 Pulse (Heart Rate) 67 /min Maura Lange [facility] Work Phone: 04-30-2020 12:53-0500 Pulse Oximetry 99 % Maura Lange [facility] Work Phone: 04-30-2020 12:53-0500 Respiratory Rate 16 /min Maura Lange [facility] Work Phone: 04-30-2020 12:53-0500 3 1 Maura Lange [facility] Work Phone: Comment on above: [employer] 12-04-2019 08:21-0400 Body Temperature 98.2 [degF] [facility], [place] 12-04-2019 08:21-0400 BP Diastolic 68 mm[Hg] [place] 12-04-2019 08:21-0400 BP Systolic 112 mm[Hg] [place] 12-04-2019 08:21-0400 Pulse (Heart Rate) 95 /min [facility], [place] 12-04-2019 08:21-0400 Pulse Oximetry 98 % [place] 12-04-2019 08:21-0400 Respiratory Rate 16 /min [facility] [place] 12-03-2019 11:22-0400 BMI (Body Mass Index) 36.4 kg/m2 [facility] [place] 12-03-2019 11:22-0400 Body weight 90.27 kg [place] 12-03-2019 11:22-0400 Height 157.5 cm [place] 11-26-2019 10:43-0400 Body Temperature 97.2 [degF] [facility] [place] 11-26-2019 10:43-0400 BP Diastolic 87 mm[Hg] [facility] , [place] 11-26-2019 10:43-0400 BP Systolic 126 mm[Hg] [facility] , [place] 11-26-2019 10:43-0400 Pulse (Heart Rate) 72 /min [facility], [place] 11-26-2019 10:43-0400 Pulse Oximetry 98 % [facility] , [place] 11-26-2019 10:43-0400 Respiratory Rate 16 /min [facility] [place] 11-26-2019 10:39-0400 BMI (Body Mass Index) 36.4 kg/m2 [facility] [place] 11-26-2019 10:39-0400 Body weight 90.27 kg [facility] , [place] 11-26-2019 10:39-0400 Height 157.5 cm [facility] , [place] 12-24-2018 10:50-0400 Body Temperature 97.39 [degF] [facility], [place] 12-24-2018 10:50-0400 BP Diastolic 81 mm[Hg] [facility] , [place] 12-24-2018 10:50-0400 BP Systolic 125 mm[Hg] [facility] , [place] 12-24-2018 10:50-0400 Pulse (Heart Rate) 82 /min [facility] 12-24-2018 10:50-0400 Pulse Oximetry 99 % [facility] , [place] 12-24-2018 10:50-0400 Respiratory Rate 18 /min [facility], [place] 12-24-2018 06:46-0400 BMI (Body Mass Index) 35.3 kg/m2 [facility] 12-24-2018 06:46-0400 Body weight 87.54 kg Lucrecia [facility] , [place] 12-24-2018 06:46-0400 [facility] [place] 12-16-2018 09:20-0400 Body Temperature 97.59 [degF] Lucrecia [facility], [place] 12-16-2018 09:20-0400 BP Diastolic 86 mm[Hg] [facility] , [place] 12-16-2018 09:20-0400 BP Systolic 120 mm[Hg] [facility] , [place] 12-16-2018 09:20-0400 Pulse (Heart Rate) 74 /min [facility] 12-16-2018 09:20-0400 Pulse Oximetry 99 % [facility] , [place] 12-16-2018 09:20-0400 Respiratory Rate 16 /min [facility], [place] 12-16-2018 09:09-0400 BMI (Body Mass Index) 35.85 kg/m2 [facility], [place] 12-16-2018 09:09-0400 Body weight 88.91 kg [facility] , [place] 12-16-2018 09:09-0400 Height 157.5 cm [facility] , [place] Encounters Encounter Date Encounter Type Care Provider Facility Start: 10-09-2024 End: 10-09-2024 Subsequent hospital visit by physician Antoine Acevedo [facility] Comment on above: Visit for screening mammogram Start: 10-09-2024 End: 10-09-2024 ambulatory GISELLE BOYKIN [facility] Start: 08-19-2024 End: 08-19-2024 Office outpatient visit 25 minutes Giselle Boykin MD Work Phone: [facility] Comment on above: Type 2 diabetes dorie itus with hyperglycemia, without long-term current use of insulin (Primary Dx); Stage 3b chronic kidney disease (Multi); Leukocytosis, unspecified type Start: 08-19-2024 End: 08-19-2024 ambulatory GISELLE BOYKIN [facility] Ambulatory Start: 05-07-2024 End: 05-07-2024 ambulatory MAURA LANGE MD Facility:[id number] Start: 05-07-2024 End: 05-07-2024 ambulatory [facility] Ambulatory Start: 05-07-2024 End: 05-07-2024 Office outpatient visit 25 minutes Maura Lange MD Work Phone: [facility] Comment on above: Systemic lupus eryth ematosus, unspecified SLE type, unspecified organ involvement status (Multi) (Primary Dx); Encounter for monitoring of hydroxychloroquine therapy Type 2 diabetes dorie itus with hyperglycemia, without long-term current use of insulin (Primary Dx); Postsplenectomy thrombocytosis; Systemic lupus erythematosus, unspecified SLE type, unspecified organ involvement status (Multi); Nausea and vomiting, unspecified vomiting type; Benign essential hypertension; Leukocytosis, unspecified type Start: 04-29-2024 ambulatory STEPHANIE WILDER Facilit y:[id number] Start: 04-29-2024 End: 04-29-2024 Subsequent hospital visit by physician Xr Tony Du Work Phone: [facility] Comment on above: Bronchitis [J40] Start: 04-29-2024 End: 04-29-2024 ambulatory STEPHANIE WILDER Facility:[id number] Start: 04-29-2024 End: 04-29-2024 Patient encounter procedure Stephanie Wilder 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[employer] DUTY MANAGER Work Phone: [facility] Comment on above: Bacterial sinusitis (Primary Dx); Bronchitis Start: 03-20-2024 End: 03-20-2024 Office outpatient visit 25 minutes Giselle Boykin MD Work Phone: [facility] Comment on above: Mixed hyperlipidemia (Primary Dx); Benign essential hypertension; Type 2 diabetes mellitus with hyperglycemia, without long-term current use of insulin; Situational depression; Anxiety Start: 03-20-2024 End: 03-20-2024 ambulatory GISELLE BOYKIN [facility] Ambulatory Start: 01-29-2024 End: 01-29-2024 ambulatory Mo Johnson Facility:[facility] Start: 11-27-2023 End: 11-27-2023 Office outpatient visit 15 minutes [facility] WAREHOUSE OPERATIONS MANAGER-[employer] DUTY MANAGER Work Phone: [facility] Comment on above: Acute otitis media, unspecified otitis media type (Primary Dx) Start: 11-27-2023 End: 11-27-2023 ambulatory [facility] Ambulatory Start: 11-14-2023 End: 11-15-2023 Emergency department patient visit HARSH Monique MAMADOU SEVILLA [facility] Start: 11-01-2023 End: 11-01-2023 ambulatory [facility] Ambulatory Start: 09-30-2023 End: 10-02-2023 Emergency department patient visit VICKY HERNANDEZ MD Facility: Start: 09-30-2023 End: 10-02-2023 Observation MAXINE BLAIR MD [facility] Start: 09-19-2023 End: 09-19-2023 Office outpatient visit 25 minutes Giselle Boykin MD Work Phone: [facility] Comment on above: Benign essential hyp ertension (Primary Dx); Skin lesion of chest wall; Screening for skin cancer; Type 2 diabetes mellitus with hyperglycemia, without long-term current use of insulin (Multi); Left anterior knee pain Start: 09-19-2023 End: 09-19-2023 ambulatory GISELLE BOYKIN [facility] Ambulatory Start: 05-03-2023 End: 05-03-2023 Office outpatient visit 25 minutes Maura Lange MD Work Phone: [facility] Comment on above: Systemic lupus eryth ematosus, unspecified SLE type, unspecified organ involvement status (CMS/HCC) (Primary Dx); Encounter for monitoring of hydroxychloroquine therapy; Gastroesophageal reflux disease without esophagitis; Type 2 diabetes mellitus with hyperglycemia, without long-term current use of insulin (CMS/HCC); Situational depression; Class 2 severe obesity due to excess calories with serious comorbidity and body mass index (BMI) of 35.0 to 35.9 in adult ([facility] Start: 03-20-2023 End: 03-20-2023 Office outpatient visit 25 minutes Giselle Boykin MD Work Phone: [facility] Comment on above: Benign essential hyp ertension (Primary Dx); Mixed hyperlipidemia; Type 2 diabetes mellitus with hyperglycemia, without long-term current use of insulin [place] Anemia, unspecified type; Systemic lupus erythematosus, unspecified SLE type, unspecified organ involvement status [place] Start: 01-31-2023 End: 01-31-2023 Subsequent hospital visit by physician Ángel Vicente DO Work Phone: [facility] Comment on above: Encounter for screen ing for malignant neoplasm of colon Start: 01-18-2023 End: 01-18-2023 Emergency department patient visit TOMAS GOLDEN MD Facility:A Start: 01-11-2023 FUV, Provider: Giselle Boykin, Status: Pen, Time: 10:30 AM Giselle Boykin Work Phone: [facility] Work Phone: Start: 12-07-2022 AUDIT Giselle pratt Work Phone: [facility] Work Phone: Start: 11-13-2022 Rx Renewal Giselle pratt Work Phone: [facility] Work Phone: Start: 11-02-2022 Chart Update Giselle pratt Work Phone: [facility] Work Phone: Start: 11-01-2022 FUV, Provider: Maura Lange, Status: Pen, Time: 10:45 AM Giselle Boykin Work Phone: [facility] Work Phone: Start: 11-01-2022 Office outpatient vi sit 25 minutes Giselle Boykin Work Phone: [facility] Work Phone: Start: 11-01-[address] Giselle Boykin Facility:[id number] Start: 10-30-2022 AUDIT Giselle Guo ers Work Phone: [facility] Work Phone: Start: 10-26-2022 Image Encounter Giselle Guo ers Work Phone: [facility] Work Phone: Start: 10-25-2022 AUDIT Giselel Guo ers Work Phone: [facility] Work Phone: Start: 10-10-[address] Giselle Boykin Facility:[id number] Start: 08-31-2022 Chart Update Giselle pratt Work Phone: [facility] Work Phone: Start: 08-30-2022 Office outpatient vi sit 15 minutes Giselle Boykin Work Phone: [facility] Work Phone: Start: 08-30-[address] Giselle Boykin Facility:[id number] Start: 05-26-[address] Giselle Boykin Facility:[id number] Start: 05-13-2022 Chart Update Giselle pratt Work Phone: [facility] Work Phone: Start: 05-11-[address] Giselle Boykin Facility:[id number] Start: 05-08-[address] Giselle Boykin Facility:[id number] Start: 05-08-2022 Office outpatient vi sit 25 minutes Giselle Boykin Work Phone: -[facility] Work Phone: Start: 05-04-2022 Chart Update Giselle Guo ers Work Phone: [facility] Work Phone: Start: 05-03-2022 Office outpatient vi sit 25 minutes Giselle Boykin Work Phone: [facility] Work Phone: Start: 05-03-[address] Maura Lange Fac ility:[id number] Start: 04-30-2022 AUDIT Giselle Guo ers Work Phone: [facility] Work Phone: Start: 04-07-2022 Chart Update Giselle Guo ers Work Phone: [facility] Work Phone: Start: 04-05-2022 AUDIT Giselle Guo ers Work Phone: [facility] Work Phone: Start: 04-04-2022 FUV, Provider: Giselle Boykin, Status: Pen, Time: 11:00 AM Giselle Boykin Work Phone: [facility] Work Phone: Start: 04-04-2022 Office outpatient vi sit 25 minutes Giselle Boykin Work Phone: [facility] Work Phone: Start: 04-04-[address] Giselle Boykin Facility:[id number] Start: 04-03-2022 AUDIT Giselle Guo ers Work Phone: [facility] Work Phone: Start: 01-09-2022 AUDIT Giselle Guo ers Work Phone: [facility] Work Phone: Start: 12-31-2021 End: 12-31-2021 ambulatory Facility:[facility] Start: 12-31-2021 End: 12-31-2021 Patient encounter procedure Koby Braun APRNLopezAIRPORT DUTY MANAGER Work Phone: [facility] Comment on above: Acute cough (Primary Dx); Sore throat; Viral URI with cough Start: 11-07-2021 AUDIT Giselle Asif Ay ers Work Phone: [facility] Work Phone: Start: 10-28-2021 Chart Update Giselle Asif Ay ers Work Phone: [facility] Work Phone: Start: 10-27-2021 FUV, Provider: Maura Lange, Status: Pen, Time: 11:45 AM Giselle Boykin Work Phone: [facility] Work Phone: Start: 10-27-2021 Office outpatient vi sit 25 minutes Giselle Guoers Work Phone: -[facility] Work Phone: Start: 10-26-2021 AUDIT Giselle Asif Ay ers Work Phone: [facility] Work Phone: Start: 09-18-2021 Chart Update Giselle Asif Ay ers Work Phone: [facility] Work Phone: Start: 09-14-2021 Office outpatient vi sit 25 minutes Giselle Asif Boykin Work Phone: [facility] Work Phone: Start: 08-31-2021 Office outpatient vi sit 15 minutes Giselle Asif Boykin Work Phone: CY-Ikghticcn-Csjyal 170 DO Work Phone: Start: 07-29-2021 AUDIT Giselle Laya Ay ers Work Phone: JK-Bhbokpxfc-Mubztd 170 DO Work Phone: Start: 05-03-2021 Chart Update Giselle Asif Ay ers Work Phone: [facility] Work Phone: Start: 05-02-2021 Chart Update Giselle Asif Ay ers Work Phone: [facility] Work Phone: Start: 04-30-2021 Chart Update Giselle Asif Ay ers Work Phone: [facility] Work Phone: Start: 04-29-2021 Office outpatient vi sit 25 minutes Giselle Laya GuoBoykin Work Phone: [facility] Work Phone: Start: 03-15-2021 Patient encounter procedure Giselle Guoers Work Phone: [facility] Work Phone: Start: 03-03-2021 Rx Renewal Giselle Asif Ay ers Work Phone: [facility]Xtmlrkewq-Eaisib 170 DO Work Phone: Start: 01-05-2021 AUDIT Giselle Asif Ay ers Work Phone: [facility] Work Phone: Start: 11-15-2020 Office outpatient vi sit 25 minutes Giselle Laya Boykin Work Phone: ON-Sxtisvjbk-Qssbap 170 DO Work Phone: Start: 10-31-2020 Chart Update Giselle Asif Ay ers Work Phone: [facility] Work Phone: Start: 10-29-2020 FUV, Provider: Maura Lange, Status: Pen, Time: 11:30 AM Giselle Boykin Work Phone: [employer] [facility] Work Phone: Start: 10-29-2020 Office outpatient vi sit 25 minutes Giselle Boykin Work Phone: [employer] [facility] Work Phone: Start: 10-28-2020 AUDIT Giselle Guo ers Work Phone: [facility] Work Phone: Start: 09-30-2020 AUDIT Giselle Guo ers Work Phone: [employer] Work Phone: Start: 09-03-2020 Chart Update Giselle pratt Work Phone: [employer] [facility] Work Phone: Start: 08-27-2020 Patient encounter procedure Giselle Boykin Work Phone: [id number]-Tdfsopjbv-IXXCW [facility] Work Phone: Start: 04-30-2020 Patient encounter procedure Maura Lange [employer] [facility] Work Phone: Start: 02-05-2020 Patient encounter procedure Maura Lange [employer] [facility] Work Phone: Start: 12-03-2019 End: 12-04-2019 Subsequent hospital visit by physician Luis Enrique Ventura Work Phone: [facility] Comment on above: Abnormal uterine ble eding (Primary Dx) Start: 11-26-2019 End: 11-26-2019 Subsequent hospital visit by physician Luis Enrique Ventura Work Phone: [facility]Admit [facility] Comment on above: Arrived Start: 10-31-2019 Patient encounter procedure Maura Lange [employer] [facility] Work Phone: Start: 08-07-2019 Patient encounter procedure Maura Lange [facility] Work Phone: Start: 07-07-2019 Patient encounter procedure Maura Lange MY-Mrvajcrox-Bnjwly 170 DO Work Phone: Start: 04-11-2019 Patient encounter procedure Maura Lange JC-Rietxfdgo-Vzezzb 170 DO Work Phone: Start: 02-17-2019 Patient encounter procedure Maura Lange CM-Guehtittl-Netytq 170 DO Work Phone: Start: 01-08-2019 Patient encounter procedure Maura Lange WY-Osvqamkcy-Hiyeda 170 DO Work Phone: Start: 12-24-2018 End: 12-24-2018 Subsequent hospital visit by physician Lucrecia Reich Work Phone: [facility] Comment on above: Recurrent incisional hernia (Primary Dx) Start: 12-16-2018 End: 12-16-2018 Subsequent hospital visit by physician Lucrecia [employer] Work Phone: [facility] Comment on above: Arrived Start: 11-18-2018 Patient encounter procedure Maura Lange SA-Hdzgudyap-Msdocf 170 DO Work Phone: Start: 11-15-2018 Patient encounter procedure Maura Lange KY-Xxfgnsmuv-Hfodpc 170 DO Work Phone: Start: 11-14-2018 End: 11-14-2018 Subsequent hospital visit by physician Lenin Weaver Work Phone: [facility] Comment on above: Recurrent incisional hernia Start: 11-11-2018 End: 11-11-2018 Subsequent hospital visit by physician Lenin Weaver Work Phone: [facility] Comment on above: Recurrent incisional hernia Start: 08-19-2018 Patient encounter procedure Maura Lange SB-Muomgnrij-Apkuig 170 DO Work Phone: Start: 08-15-2018 Patient encounter procedure Maura Lange YH-Ozwetnwkf-Axgwhy 170 DO Work Phone: Start: 07-17-2018 Patient encounter procedure Maura Lange KK-Jhgzocqzz-Xvbdqd 170 DO Work Phone: Start: 07-11-2018 Patient encounter procedure Maura Lange GO-Kkunwjqmw-Okbkzr 170 DO Work Phone: Start: 05-22-2018 Patient encounter procedure Maura Lange OL-Fweppicgt-Bqatwa 170 DO Work Phone: Start: 04-25-2018 Patient encounter procedure Maura Lange UX-Qubixiihr-Uescnv 170 DO Work Phone: Start: 03-13-2018 Patient encounter procedure Maura Lange NI-Gyhnuzaii-Gvrpea 170 DO Work Phone: Start: 02-11-2018 Patient encounter procedure Maura Lange OA-Irztcuqcz-Cttole 170 DO Work Phone: Start: 11-14-2017 Patient encounter procedure Maura Lange PI-Saezmscnw-Uqodeq 170 DO Work Phone: Start: 10-16-2017 Patient encounter procedure Maura Lange HV-Nkgotpnpd-Aopvgc 170 DO Work Phone: Start: 10-09-2017 Patient encounter procedure Maura Lange RI-Fistnaalb-Dvyoks 170 DO Work Phone: Start: 09-26-2017 Patient encounter procedure Maura Lange ED-Vfueqshdt-Ruhthi 170 DO Work Phone: Start: 08-30-2017 Patient encounter procedure Maura Lange QV-Zolpaencm-Hfwczg 170 DO Work Phone: Start: 08-13-2017 Patient encounter procedure Maura Lange TT-Jytqrrgjd-Vibxdo 170 DO Work Phone: Start: 08-08-2017 Patient encounter procedure Maura Lange IP-Vmaotnrsv-Mofzos 170 DO Work Phone: Start: 07-18-2017 Patient encounter procedure Maura Lange AJ-Xvktwklqk-Hxoawg 170 DO Work Phone: Start: 07-16-2017 Patient encounter procedure Maura Lange YX-Pnpkqzscz-Dtanlb 170 DO Work Phone: End: 03-15-2016 Cancer cervix - screening done Giselle Boykin Work Phone: LP-Kamspmnrm-HTODQ [facility] Work Phone: End: 03-15-2016 Encounter for gynecological examination (general) (routine) without abnormal findings Giselle Boykin Work Phone: [facility] Work Phone: Procedures Date Procedure Procedure Detail Performing Clinician Start: 05-07-2024 Hemoglobin glycosylated a1c Giselle Boykin MD Work Phone: Start: 05-05-2024 Lipid 1996 panel - S kandy or Plasma Maura Lange MD Work Phone: Start: 05-03-2023 Lipid 1996 panel - S kandy or Plasma Giselle Boykin MD Work Phone: Start: 01-31-2023 Colonoscopy flx dx w /collj spec when pfrmd Marquise Rico MD Work Phone: Start: 01-31-2023 PULSE OXIMETRY, CONTINUOUS Christopher A Pluskota DO Work Phone: Start: 01-31-2023 PULSE OXIMETRY, SPOT Ch ristopher A Pluskota DO Work Phone: Start: 01-31-2023 Colonoscopy Omar r Pluskota DO Work Phone: Start: 05-11-2022 Mammography Omar r Pluskota DO Work Phone: Start: 04-04-2022 Lipid 1996 panel - S kandy or Plasma Ángel Pluskota DO Work Phone: Start: 12-31-2021 STREP A MOLECULAR (POC) [facility] Provider Start: 04-30-2020 Xray Foot Bilateral, Complete, Min 3 Views Maura Calzadasabigaudencio Start: 04-16-2020 FFD mammogram Breast screening Maura Lange Start: 04-16-2020 MG Breast screening Iman Lange Start: 12-04-2019 Gluc bld gluc mntr d ev cleared fda spec home use Rene Liana Work Phone: Start: 12-04-2019 Gluc bld gluc mntr d ev cleared fda spec home use Rene Liana Work Phone: Start: 12-03-2019 Gluc bld gluc mntr d ev cleared fda spec home use Reen Liana Work Phone: Start: 12-03-2019 OPERATIVE REPORT 3m Sca nning Start: 12-03-2019 Gluc bld gluc mntr d ev cleared fda spec home use Luis Enrique Ventura Work Phone: Start: 12-03-2019 Urine test visual color cmprsn diane Rico Work Phone: Start: 12-03-2019 Gluc bld gluc mntr d ev cleared fda spec home use Luis Enrique Ventura Work Phone: Start: 12-03-2019 Total hysterectomy w ith removal of both tubes and ovaries Giselle Boykin Work Phone: Comment on above: Rene Gaines MD; Start: 11-26-2019 Basic metabolic pane l calcium total Lucrecia Matheus [employer] Work Phone: Start: 11-26-2019 Blood count complete automated Lucrecia Matheus [employer] Work Phone: Start: 11-26-2019 Blood typing serologic abo Lucrecia Matheus [employer] Work Phone: Start: 11-26-2019 Ecg routine ecg w/le ast 12 lds w/i&r Lucrecia Matheus [employer] Work Phone: Start: 07-07-2019 Blood count complete auto&auto difrntl wbc Maura Lange Start: 07-07-2019 Comprehensive metabo lic 2000 panel Maura Nazario Start: 12-24-2018 OPERATIVE REPORT 3m Sca nning Start: 12-24-2018 Gluc bld gluc mntr d ev cleared fda spec home use Lucrecia Antonio Reich Work Phone: Start: 12-24-2018 Gluc bld gluc mntr d ev cleared fda spec home use Lucrecia J Shant Work Phone: Start: 12-24-2018 Urine test visual color cmprsn meths Inderjitave Herrmann Work Phone: Start: 12-24-2018 Repair of ventral hernia Giselle Boykin Work Phone: Start: 12-16-2018 Basic metabolic pane l calcium total Lucrecia Jarvis [employer] Work Phone: Start: 12-16-2018 Blood count complete automated Lucrecia [employer] Work Phone: Start: 12-16-2018 Ecg routine ecg w/le ast 12 lds w/i&r Lucrecia Jarvis [employer] Work Phone: Start: 11-14-2018 CT ABDOMEN PELVIS W CONTRAST Lenin Weaver Work Phone: Start: 11-11-2018 Creatinine blood Lenin ignacio Work Phone: Start: 11-23-2015 Microscopic observat ion [Identifier] in Cervix by Cyto stain Ángel Vicente DO Work Phone: section Maura Vazquez nski section MAXINE Dickens MD Cholecystectomy Maura nicholas Cholecystectomy MAXINE BLAIR MD Distal subtotal pancreatectomy Giselle Boykin Work Phone: Comment on above: partial for phlegmon ; History of Pancreatectomy Fide Lange Comment on above: partial for phlegmon ; History of Splenectomy Maura Lange History of Ventral H ernia Repair Maura Lange Comment on above: due to dehiscence 13; Hysterectomy MAXINE BLAIR MD End: 12-24-2018 Repair of ventral hernia Maura Lange Screening colonoscopy Maura Lange Splenectomy MAXINE BLAIR MD Stress test treadmil l (physical object) MAXINE BLAIR MD End: 12-03-2019 Total hysterectomy with removal of both tubes and ovaries Maura Lange Plan of Treatment Date Care Activity Detail Author Start: 01-28-2033 Screening for malign ant neoplasm of colon [facility] Start: 05-03-2028 Lipid panel Lipid Screening [facility] Start: 10-31-2026 [facility] Start: 12-15-2025 DTaP/Tdap/Td vaccine (3 - Td) DTaP/Tdap/Td vaccine (3 - Td) [place], [place] Start: 12-15-2025 DTaP/Tdap/Td Vaccine s (3 - Td or Tdap) DTaP/Tdap/Td Vaccines (3 - Td or Tdap) [facility] Start: 12-15-2025 Urine microalbumin profile DTa P,Tdap,Td Vaccine (3 - Td or Tdap) [facility] Start: 05-07-2025 Urine screening for protein Diabetes: Urine Protein Screening [facility] Start: 05-05-2025 Lipid panel Lipid Panel [facility] Start: 12-01-2024 Influenza vaccination Influenz a Vaccine (#1) [facility] Start: 11-20-2024 End: 11-20-2024 Patient encounter procedure 11/20/2024 10:15 AM EDT Office Visit [facility] Rheumatology & Internal Medicine [address] [place] [phone] Giselle Boykin MD [address] [place] [address] [facility] Start: 11-19-2024 Hemoglobin A1c measurement Devi betes: Hemoglobin A1C [facility] Start: 11-06-2024 End: 11-06-2024 Patient encounter procedure 11/06/2024 10:30 AM EDT Office Visit [address] [phone] Maura Lange MD [address] [place] [address] [facility] Start: 08-19-2024 End: 08-19-2025 Basic metabolic 2000 panel - Serum or Plasma Basic metabolic panel Lab Routine Stage 3b chronic kidney disease (Multi) Expected: 08/19/2024 (Approximate), Expires: 08/19/2025 [facility] Work Phone: Comment on above: Expected: 08/19/2024 (Approximate), Expires: 08/19/2025 Start: 08-19-2024 End: 08-19-2025 CBC W Auto Differential panel - Blood CBC and Auto Differential Lab Routine Leukocytosis, unspecified type Expected: 08/19/2024 (Approximate), Expires: 08/19/2025 [facility] Service Area Work Phone: Comment on above: Expected: 08/19/2024 (Approximate), Expires: 08/19/2025 Start: 08-19-2024 End: 08-19-2025 Hemoglobin A1c/Hemoglobin.total in Blood Hemoglobin A1c Lab Routine Type 2 diabetes mellitus with hyperglycemia, without long-term current use of insulin Expected: 08/19/2024 (Approximate), Expires: 08/19/2025 [facility] Work Phone: Comment on above: Expected: 08/19/2024 (Approximate), Expires: 08/19/2025 Start: 08-11-2024 End: 08-11-2024 Patient encounter procedure 08/11/2024 10:15 AM EDT Office Visit [facility] Rhe[facility]ology & Internal Medicine [address] [place] [phone] Giselle Boykin MD [address] [place] [id number] [facility] Start: 08-04-2024 Hemoglobin A1c measurement Devi betes: Hemoglobin A1C [facility] Start: 08-02-2024 Hemoglobin A1c measurement Devi betes: Hemoglobin A1C [facility] Start: 05-07-2024 End: 05-07-2025 C reactive protein [Mass/volume] in Serum or Plasma C-Reactive Protein Lab Routine Systemic lupus erythematosus, unspecified SLE type, unspecified organ involvement status (Multi) Expected: 05/07/2024, Expires: 05/07/2025 [facility] Work Phone: Comment on above: Expected: 05/07/2024 , Expires: 05/07/2025 Start: 05-07-2024 End: 05-07-2025 Complement C3 [Mass/volume] in Serum or Plasma C3 Complement Lab Routine Systemic lupus erythematosus, unspecified SLE type, unspecified organ involvement status (Multi) Expected: 05/07/2024 (Approximate), Expires: 05/07/2025 [facility] Work Phone: Comment on above: Expected: 05/07/2024 (Approximate), Expires: 05/07/2025 Start: 05-07-2024 End: 05-07-2025 Complement C4 [Mass/volume] in Serum or Plasma C4 Complement Lab Routine Systemic lupus erythematosus, unspecified SLE type, unspecified organ involvement status (Multi) Expected: 05/07/2024 (Approximate), Expires: 05/07/2025 [facility] Work Phone: Comment on above: Expected: 05/07/2024 (Approximate), Expires: 05/07/2025 Start: 05-07-2024 End: 05-07-2025 DNA double strand Ab [Units/volume] in Serum Anti-DNA Antibody, Double-Stranded Lab Routine Systemic lupus erythematosus, unspecified SLE type, unspecified organ involvement status (Multi) Expected: 05/07/2024 (Approximate), Expires: 05/07/2025 [facility] Service Area Work Phone: Comment on above: Expected: 05/07/2024 (Approximate), Expires: 05/07/2025 Start: 05-07-2024 End: 02-05-2026 Erythrocyte sedimentation rate Sedimentation Rate Lab Routine Systemic lupus erythematosus, unspecified SLE type, unspecified organ involvement status (Multi) Expected: 05/07/2024, Expires: 05/07/2025 [facility] Work Phone: Comment on above: Expected: 05/07/2024 , Expires: 05/07/2025 Start: 05-07-2024 End: 05-07-2024 Patient encounter procedure [facility] Start: 05-04-2024 End: 05-04-2025 Microalbumin/Creatinine [Mass Ratio] in Urine Albumin-Creatinine Ratio, Urine Random Lab Routine Type 2 diabetes mellitus with hyperglycemia, without long-term current use of insulin Expected: 05/04/2024 (Approximate), Expires: 05/04/2025 [facility] Service Area Work Phone: Comment on above: Expected: 05/04/2024 (Approximate), Expires: 05/04/2025 Start: 05-03-2024 Lipid panel Lipid Panel [facility] Start: 03-20-2024 End: 03-20-2025 CBC W Auto Differential panel - Blood CBC and Auto Differential Lab Routine Benign essential hypertension Expected: 03/20/2024 (Approximate), Expires: 03/20/2025 [facility] Work Phone: Comment on above: Expected: 03/20/2024 (Approximate), Expires: 03/20/2025 Start: 03-20-2024 End: 03-20-2025 Comprehensive metabolic 2000 panel - Serum or Plasma Comprehensive Metabolic Panel Lab Routine Benign essential hypertension Expected: 03/20/2024 (Approximate), Expires: 03/20/2025 [facility] Work Phone: Comment on above: Expected: 03/20/2024 (Approximate), Expires: 03/20/2025 Start: 03-20-2024 End: 03-20-2025 Hemoglobin A1c/Hemoglobin.total in Blood Hemoglobin A1c Lab Routine Type 2 diabetes mellitus with hyperglycemia, without long-term current use of insulin Expected: 03/20/2024 (Approximate), Expires: 03/20/2025 [facility] Work Phone: Comment on above: Expected: 03/20/2024 (Approximate), Expires: 03/20/2025 Start: 03-20-2024 End: 03-20-2025 Lipid 1996 panel - Serum or Plasma Lipid Panel Lab Routine Mixed hyperlipidemia Expected: 03/20/2024 (Approximate), Expires: 03/20/2025 [facility] Service Area Work Phone: Comment on above: Expected: 03/20/2024 (Approximate), Expires: 03/20/2025 Start: 03-20-2024 End: 03-20-2024 Patient encounter procedure 03/20/2024 10:30 AM EST Office Visit [facility] Rheumatology & Internal Medicine [facility] [place] [phone] Giselle Boykin MD [address] [place] [address] [facility] Start: 02-29-2024 End: 02-29-2024 Patient encounter procedure 02/29/2024 3:30 PM EST Office Visit [facility] [address] [address] [facility] [address] [place] [id number] [place] [address] [address] [place] [address] [facility] Start: 02-01-2024 Hemoglobin A1c measurement Devi betes: Hemoglobin A1C [facility] Start: 02-01-2024 Screening for malign ant neoplasm of colon [facility] Start: 12-02-2023 COVID-19 Vaccine ( season) COVID-19 Vaccine () [facility] Start: 12-02-2023 Covid-19 Vaccine ( season) Covid-19 Vaccine ( season) [facility] Start: 12-02-2023 Influenza vaccination Influenz a Vaccine (#1) [facility] Start: 11-09-2023 Cervical cancer screen Cervica l cancer screen [place], [place] Start: 11-09-2023 Screening for malign ant neoplasm of cervix Cervical cancer screen [facility] Start: 11-01-2023 End: 11-01-2023 Patient encounter procedure 11/01/2023 10:30 AM EDT Office Visit [address] [place] [address] Marua Lange MD [address] [place] [address] [address] [place] [address] [facility] Start: 09-19-2023 End: 09-18-2024 Hemoglobin A1c/Hemoglobin.total in Blood Hemoglobin A1c Lab Routine Type 2 diabetes mellitus with hyperglycemia, without long-term current use of insulin (Multi) Expected: 09/19/2023 (Approximate), Expires: 09/18/2024 [facility] Service Area Work Phone: Comment on above: Expected: 09/19/2023 (Approximate), Expires: 09/18/2024 Start: 09-19-2023 End: 09-19-2023 Patient encounter procedure 09/19/2023 10:30 AM EDT Office Visit [facility] Rheumatology & Internal Medicine [address] [place] [phone] Giselle Boykin MD [address] [place] [address] [address] [place] [address] [facility] Start: 08-01-2023 Hemoglobin A1c measurement Devi betes: Hemoglobin A1C [facility] Start: 05-11-2023 Screening for malign ant neoplasm of breast Mammogram [facility] Start: 05-03-2023 End: 05-03-2024 C reactive protein [Mass/volume] in Serum or Plasma [facility] Work Phone: Comment on above: Expected: 05/03/2023 , Expires: 05/03/2024 Start: 05-03-2023 End: 05-03-2024 CBC W Auto Differential panel - Blood [facility] Work Phone: Comment on above: Expected: 05/03/2023 (Approximate), Expires: 05/03/2024 Start: 05-03-2023 End: 05-03-2024 Complement C3 [Mass/volume] in Serum or Plasma [facility] Work Phone: Comment on above: Expected: 05/03/2023 (Approximate), Expires: 05/03/2024 Start: 05-03-2023 End: 05-03-2024 Complement C4 [Mass/volume] in Serum or Plasma [facility] Work Phone: Comment on above: Expected: 05/03/2023 (Approximate), Expires: 05/03/2024 Start: 05-03-2023 End: 05-03-2024 Comprehensive metabolic 2000 panel - Serum or Plasma [facility] Work Phone: Comment on above: Expected: 05/03/2023 (Approximate), Expires: 05/03/2024 Start: 05-03-2023 End: 05-03-2024 DNA double strand Ab [Units/volume] in Serum [facility] Service Area Work Phone: Comment on above: Expected: 05/03/2023 (Approximate), Expires: 05/03/2024 Start: 05-03-2023 End: 05-03-2024 Erythrocyte sedimentation rate [facility] Work Phone: Comment on above: Expected: 05/03/2023 , Expires: 05/03/2024 Start: 05-03-2023 FUV, Provider: Maura Lange, Status: Pen, Time: 10:45 AM FUV, Provider: Maura Lange, Status: Pen, Time: 10:45 AM -[facility] Work Phone: Start: 05-03-2023 End: 05-03-2023 Patient encounter procedure 05/03/2023 10:45 AM EST Office Visit [address] [facility] [address] [place] [address] Maura Lange MD [address] [place] [address] [address] [place] [address] [facility] Start: 04-04-2023 Lipid panel Lipid Panel [facility] Start: 03-20-2023 End: 03-20-2024 Hemoglobin A1c/Hemoglobin.total in Blood Hemoglobin A1c Lab Routine Type 2 diabetes mellitus with hyperglycemia, without long-term current use of insulin ([facility]) Expected: 03/20/2023 (Approximate), Expires: 03/20/2024 [facility] Work Phone: Comment on above: Expected: 03/20/2023 (Approximate), Expires: 03/20/2024 Start: 03-20-2023 End: 03-20-2024 Lipid 1996 panel - Serum or Plasma Lipid Panel Lab Routine Mixed hyperlipidemia Expected: 03/20/2023 (Approximate), Expires: 03/20/2024 [facility] Service Area Work Phone: Comment on above: Expected: 03/20/2023 (Approximate), Expires: 03/20/2024 Start: 01-11-2023 FUV, Provider: Giselle Boykin, Status: Pen, Time: 10:30 AM FUV, Provider: Giselle Boykin, Status: Pen, Time: 10:30 AM [facility] Work Phone: Start: 12-01-2022 COVID-19 Vaccine ( season) COVID-19 Vaccine ( season) [facility] Start: 12-01-2022 Influenza vaccination Influenz a Vaccine (#1) [facility] Start: 11-01-2022 FUV, Provider: Maura Lange, Status: Pen, Time: 10:45 AM FUV, Provider: Maura Lange, Status: Pen, Time: 10:45 AM [facility] Work Phone: Start: 10-10-2022 FUV, Provider: Giselle Boykin, Status: Pen, Time: 10:30 AM FUV, Provider: Giselle Boykin, Status: Pen, Time: 10:30 AM [employer] Work Phone: Start: 09-14-2022 Urine screening for protein Diabetes: Urine Protein Screening [facility] Start: 07-03-2022 Hemoglobin A1c measurement Devi betes: Hemoglobin A1C [facility] Start: 05-08-2022 FUVHOSP, Provider: Giselle Boykin, Status: Pen, Time: 9:30 AM FUVHOSP, Provider: Giselle Boykin, Status: Pen, Time: 9:30 AM [employer] Work Phone: Start: 05-03-2022 FUV, Provider: Maura Lange, Status: Pen, Time: 10:45 AM FUV, Provider: Maura Lange, Status: Pen, Time: 10:45 AM [employer] Work Phone: Start: 03-16-2022 FUV, Provider: Giselle Boykin, Status: Pen, Time: 2:30 PM FUV, Provider: Giselle Boykin, Status: Pen, Time: 2:30 PM [employer] Work Phone: Start: 2022 Pneumococcal Vaccine : 50+ (1 of 1 - PCV) Pneumococcal Vaccine: 50+ (1 of 1 - PCV) [facility] Start: 2022 Shingrix Vaccine (1 of 2) Bella grix Vaccine (1 of 2) [facility] Start: 2022 Zoster Vaccines (1 of 2) Zoste r Vaccines (1 of 2) [facility] Start: 12-25-2021 Yearly Adult Physical Yearly Adult P hysical [facility] Start: 12-01-2021 Influenza vaccination INFLUENZA (#1) [facility] Start: 10-27-2021 FUV, Provider: Maura Lange, Status: Pen, Time: 11:45 AM FUV, Provider: Maura Lange, Status: Pen, Time: 11:45 AM [employer] Work Phone: Start: 09-14-2021 FUV, Provider: Giselle Boykin, Status: Pen, Time: 3:15 PM FUV, Provider: Giselle Boykin, Status: Pen, Time: 3:15 PM [facility] Work Phone: Start: 08-31-2021 FUVGENERAL, Provider : Olivia Schmitz, Status: Pen, Time: 2:00 PM FUVGENERAL, Provider: Olivia Schmitz, Status: Pen, Time: 2:00 PM PK-Abpwhpend-Hmwoxz 170 DO Work Phone: Start: 06-02-2021 COVID-19 VACCINE (4 - Booster for Pfizer series) COVID-19 VACCINE (4 - Booster for Pfizer series) [facility] Start: 06-02-2021 COVID-19 Vaccine (4 - Pfizer series) COVID-19 Vaccine (4 - Pfizer series) [facility] Start: 05-16-2021 FUVGENERAL, Provider : Olivia Schmitz, Status: Pen, Time: 2:00 PM FUVGENERAL, Provider: Olivia Schmitz, Status: Pen, Time: 2:00 PM HA-Cjduwfhmq-Uzjfbo 170 DO Work Phone: Start: 04-29-2021 FUV, Provider: Maura Lange, Status: Pen, Time: 11:15 AM FUV, Provider: Maura Lange, Status: Pen, Time: 11:15 AM [facility] Work Phone: Start: 04-02-2021 DEPRESSION ASSESSMENT DEPRESSION ASS ESSMENT [facility] Start: 2021 FUV, Provider: Giselle Boykin, Status: Pen, Time: 10:00 AM FUV, Provider: Giselle Boykin, Status: Pen, Time: 10:00 AM XP-Pjhqlncsz-Dyhqaq 170 DO Work Phone: Start: 02-03-2021 FUV, Provider: Giselle Boykin, Status: Pen, Time: 1:00 PM FUV, Provider: Giselle Boykin, Status: Pen, Time: 1:00 PM AR-Kjqlvcqqs-XKTRR [facility] Work Phone: Start: 11-25-2020 Creatinine measurement Creatinine mo dax [facility] Start: 11-25-2020 Potassium monitoring Potassium monit [facility] Start: 11-15-2020 FUVGENERAL, Provider : Olivia Schmitz, Status: Pen, Time: 1:30 PM FUVGENERAL, Provider: Olivia Schmitz, Status: Pen, Time: 1:30 PM [facility] Work Phone: Start: 10-29-2020 FUV, Provider: Maura Lange, Status: Pen, Time: 11:30 AM FUV, Provider: Maura Lange, Status: Pen, Time: 11:30 AM ZJ-Xtpyidoso-CXFZE [facility] Work Phone: Start: 12-19-2019 End: 12-19-2019 Office Visit 12/19/2019 Office Visit Obstetrics and Gynecology Rene Gaines MD [address] [place], [place] [id number] [facility] Start: 12-17-2019 [facility] Start: 12-17-2019 Creatinine monitoring Creatinine mon itoring [facility] Start: 12-17-2019 Potassium monitoring Potassium monit [place], [place] Start: 12-03-2019 End: 12-03-2019 Appointment 12/03/2019 Appointment General Surgery Rene Gaines MD [address] [place] [id number] Luis Enrique Ventura MD [address] [place] [address] [address] [place] [address] [phone] Start: 12-02-2019 Influenza vaccination Flu vaccine (# 1) [place], [place] Start: 11-12-2019 [facility] Start: 01-31-2019 Potassium monitoring Potassium monit oring [facility] Start: 12-24-2018 End: 12-24-2018 Appointment 12/24/2018 Appointment General Surgery Lucrecia Reich MD [address] [place] [phone] [facility] Start: 12-01-2018 Influenza vaccination [facility] (# 1) [facility] Start: 11-29-2018 End: 11-29-2018 Procedure visit 11/29/2018 Procedure visit Obstetrics and Gynecology Rene Gaines MD [address] [place], [place] [id number] [facility] Start: 11-22-2018 Screening for malign ant neoplasm of cervix [facility] Start: 11-19-2018 End: 11-19-2018 Office Visit 11/19/2018 Office Visit General Surgery Lucrecia Reich MD [address] [place], [place] [phone] Gen Surg - [facility] Start: 11-14-2018 Hospital Encounter [facility] Start: 11-10-2018 DIABETES SCREEN DIABETES SCREEN [facility] Start: 08-09-2018 Screening for malign ant neoplasm of colon FIT [facility] Start: 01-06-2018 Urine microalbumin profile DTA P,TDAP,TD (2 - Td or Tdap) [facility] Start: 2017 COLOGUARD (FIT-DNA) COLOGUARD (FIT-D NA) [facility] Start: 2017 Colonoscopy COLONOSCOPY [facility] Start: 2017 COLORECTAL CANCER SCREENING COLORECTAL CANCER SCREENING [facility] Start: [address] COLONOGRAPHY [facility] Start: 2017 FECAL OCCULT BLOOD FECAL OCCULT BLOO D [facility] Start: 2017 LIPID SCREEN LIPID SCREEN [facility] Start: 2017 Screening for malign ant neoplasm of colon [facility] Start: 2017 SIGMOIDOSCOPY SIGMOIDOSCOPY [facility] Start: 02-10-2016 Meningococcal (ACWY) vaccine (2 - Risk 2-dose series) [facility] Start: 12-08-2014 PAP TESTING PAP TESTING [facility] Start: 12-08-2012 Screening for malign ant neoplasm of cervix Cervical Cancer Screening [facility] Start: 2012 Diabetes screen Diabetes screen [place], [place] Start: 2012 Lipid screen Lipid screen [place], [place] Start: 2012 Mammography MAMMOGRAM [facility] Start: 2012 Screening for malign ant neoplasm of breast Mammogram Screening [facility] Start: 03-09-2008 SHINGRIX VACCINE (1 of 2) BELLA GRIX VACCINE (1 of 2) [facility] Start: 2002 Cervical cancer screen Cervica l cancer screen [place], [place] Start: 2002 HPV TESTING HPV TESTING [facility] Start: 1993 Cervical cancer screen Cervica l cancer screen [place], [place] Start: 1993 Screening for malign ant neoplasm of cervix HPV/Cotest [facility] Start: 1991 Hepatitis A Vaccines (1 of 2 - Risk 2-dose series) Hepatitis A Vaccines (1 of 2 - Risk 2-dose series) [facility] Start: 1991 Hepatitis B Vaccine (1 of 3 - 19+ 3-dose series) Hepatitis B Vaccine (1 of 3 - 19+ 3-dose series) [facility] Start: 1991 Hepatitis B Vaccines (1 of 3 - 19+ 3-dose series) Hepatitis B Vaccines (1 of 3 - 19+ 3-dose series) [facility] Start: 1991 Pneumococcal vaccination Pneum ococcal Vaccine (1 of 2 - PCV) [facility] Start: 1990 ANNUAL PCP TEAM FINANCIAL SALES ADVISOR ELIZA DISEASE VISIT ANNUAL PCP TEAM CHRONIC DISEASE VISIT [facility] Start: 1990 Anxiety Screening Anxiety Screening [facility] Start: 1990 BP CONTROLLED (<130/80) BP CON TROLLED (<130/80) [facility] Start: 1990 Depression Screening Depression Scre ening [facility] Start: 1990 HEPATITIS C SCREENING HEPATITIS C SC REENING [facility] Start: 1990 Hepatitis C screening Hepatitis C [facility] Start: 1990 HIV SCRE[facility]ING [facility] Start: 1990 HIV screening HIV Screening [facility] Start: 1987 HIV screen HIV screen [place], [place] Start: 1987 [facility] [place] [place] Start: 1982 Diabetic foot examination Diabetes: Foot Exam [facility] Start: 1982 Glaucoma screening Diabetes: R etinopathy Screening [facility] Start: 1982 Lipid panel Lipid screen [place], [place] Start: 1982 Meningococcal B vacc ine (1 of 4 - Increased Risk Bexsero 2-dose series) Meningococcal B vaccine (1 of 4 - Increased Risk Bexsero 2-dose series) [place], [place] Start: 1982 Meningococcal B Vacc ine (1 of 4 - Increased Risk) Meningococcal B Vaccine (1 of 4 - Increased Risk) [facility] Start: 1978 PNEUMOCOCCAL (1 - PCV) PNEUMOC OCCAL (1 - PCV) [facility] Start: 1978 Pneumococcal 0-64 ye ars Vaccine (1 of 3 - PCV13) Pneumococcal 0-64 years Vaccine (1 of 3 - PCV13) [place], [place] Start: 1978 Pneumococcal Vaccine : Pediatrics (0 to 5 Years) and At-Risk Patients (6 to 64 Years) (1 - PCV) Pneumococcal Vaccine: Pediatrics (0 to 5 Years) and At-Risk Patients (6 to 64 Years) (1 - PCV) [facility] Start: 1978 Pneumococcal Vaccine : Pediatrics (0 to 5 Years) and At-Risk Patients (6 to 64 Years) (1 of 2 - PCV) Pneumococcal Vaccine: Pediatrics (0 to 5 Years) and At-Risk Patients (6 to 64 Years) (1 of 2 - PCV) [facility] Start: 1974 Meningococcal Vaccin e (1 - Risk 2-dose series) Meningococcal Vaccine (1 - Risk 2-dose series) [facility] Start: 06-05-1973 Hib vaccine (1 of 1 - Risk 1-dose series) Hib vaccine (1 of 1 - Risk 1-dose series) [facility] Start: 06-05-1973 HIB Vaccines (1 of 1 - Risk 1-dose series) HIB Vaccines (1 of 1 - Risk 1-dose series) [facility] Start: 1972 HEPATITIS B (1 of 3 - 3-dose series) HEPATITIS B (1 of 3 - 3-dose series) [facility] Start: 1972 Hepatitis B Vaccines (1 of 3 - 3-dose series) Hepatitis B Vaccines (1 of 3 - 3-dose series) [facility] Start: 1972 HIV screening HIV Screening [facility] Start: 1972 Screening for malign ant neoplasm of colon [facility] Start: 1972 Yearly Adult Physical Yearly Adult P hysical [facility] End: 12-24-2018 Blood glucose - POCT Blood glucose - POCT Point of Care Testing STAT One Time for 1 Occurrences starting 12/24/2018 until 12/24/[address] [facility] [address] Comment on above: One Time for 1 Occur rences starting 12/24/2018 until 12/24/2018 End: 01-31-2023 Choriogonadotropin ( test) [Presence] in Urine POCT , urine manually resulted Point of Care Testing Routine Once (Lab) for 1 Occurrences starting 01/31/2023 until 01/31/2023 [facility] Work Phone: Comment on above: Once (Lab) for 1 Occ urrences starting 01/31/2023 until 01/31/2023 End: 11-14-2018 CT Abdomen Pelvis W Contrast CT Abdomen Pelvis W Contrast Imaging Routine Recurrent incisional hernia 1 Occurrences starting 11/14/2018 until 11/14/2018 [facility] Comment on above: 1 Occurrences starti ng 11/14/2018 until 11/14/2018 End: 10-09-2024 DBT Breast - bilateral [facility] Service Area Work Phone: Comment on above: Once for 1 Occurrenc es starting 10/09/2024 until 10/09/2024 EKG 12 Lead [facility] End: 01-31-2023 Glucose [Mass/volume] in Serum or Plasma POCT Glucose Point of Care Testing - Docked Device Routine Once (Lab) for 1 Occurrences starting 01/31/2023 until 01/31/2023 [facility] Work Phone: Comment on above: Once (Lab) for 1 Occ urrences starting 01/31/2023 until 01/31/2023 Incentive spirometry Incentive s pirometry Respiratory Care Routine Q1H PRN until discontinued starting 12/24/2018 [facility] Comment on above: Q1H PRN until discon tinued starting 12/24/2018 Influenza virus A an d B RNA and SARS-CoV-2 (COVID-19) N gene panel - Respiratory specimen by CARLY with probe detection COVID WITH FLUA+B, ROUTINE Microbiology Routine Acute cough 12/31/2021 1:34 PM EDT [facility] Work Phone: Initiate Oxygen Ther apy Protocol Initiate Oxygen Therapy Protocol Respiratory Care Routine Daily until discontinued starting 12/24/2018 [facility] Comment on above: Daily until disconti nued starting 12/24/2018 End: 01-31-2023 Moderate Sedation Moderate Sedation Procedures Routine Once for 1 Occurrences starting 01/31/2023 until 01/31/2023 [facility] Service Area Work Phone: Comment on above: Once for 1 Occurrenc es starting 01/31/2023 until 01/31/2023 Oxygen therapy [Mini [facility] Data Set] Initiate Oxygen Therapy Protocol Respiratory Care Routine Daily until discontinued starting 12/03/2019 [facility] Comment on above: Daily until disconti nued starting 12/03/2019 POCT GLUCOSE POCT GLUCOSE Poi nt of Care Testing Routine 4X Daily (AC & HS) until discontinued starting 12/03/2019 [facility] Comment on above: 4X Daily (AC & HS) u ntil discontinued starting 12/03/2019 End: 12-24-2018 Pulse Oximetry Spot Check Pulse Oximetry Spot Check Respiratory Care Routine One Time for 1 Occurrences starting 12/24/2018 until 12/24/2018 [facility] Comment on above: One Time for 1 Occur rences starting 12/24/2018 until 12/24/2018 RAPID STREP TEST B/O RAPID STREP TEST B/O Lab Routine Sore throat Ordered: 12/31/2021 [facility] Work Phone: Comment on above: Ordered: 12/31/2021 Spirometry panel Incentive [facility] Respiratory Care Routine Every 2hr while awake until discontinued starting 12/03/2019 [facility] Comment on above: Every 2hr while awak e until discontinued starting 12/03/2019 End: 12-03-2019 Surgical Pathology Surgical Pathology Lab Routine Once for 1 Occurrences starting 12/03/2019 until 12/03/2019 [facility] Comment on above: Once for 1 Occurrenc es starting 12/03/2019 until 12/03/2019 Surgical Pathology Surgical Path ology Lab Routine 12/03/2019 2:34 PM EDT [facility] CT XR Chest PA and Lateral XR CHEST 2V FRONTAL/LAT Radiology Routine Bronchitis 04/29/2024 3:37 PM EST [facility] Work Phone: End: 05-30-2025 XR Chest PA and Lateral XR CHEST 2V FRONTAL/LAT Radiology Routine Bronchitis 1 Occurrences starting 04/29/2024 until 05/30/2025 [facility] Work Phone: Comment on above: 1 Occurrences starti ng 04/29/2024 until 05/30/2025 NEGATED: Highlighted row has been ruled out! Planned Goals not documented TN-Wtyehnxco-Qfngid 170 DO Work Phone: Immunizations Immunization Date Immunization Notes Care Provider [facility] 03-20-2024 influenza, seasonal, injectable, preservative free Giselle Boykin MD Work Phone: [facility] Work Phone: 03-20-2024 influenza virus vaccine, unspecified formulation [facility] 1 [facility] Work Phone: 03-20-2023 influenza virus vaccine, unspecified formulation MAXINE BLAIR MD [facility] 03-20-2023 influenza, injectabl e, quadrivalent, preservative free Giselle Boykin MD Work Phone: [facility] Work Phone: 04-07-2021 Pfizer-BioNTech COVID-19 Vacc 30 MCG/0.3ML Intramuscular Suspension Giselle E Boykin Work Phone: [facility] 12-25-2020 influenza, seasonal, injectable Carteropher Pluskota DO Work Phone: [facility] Work Phone: 12-25-2020 Seasonal, quadrivale nt, recombinant, injectable influenza vaccine, preservative free Giselle E Boykin Work Phone: DA-Dngsarsgg-Qgiyv a 170 DO Work Phone: 12-25-2020 influenza virus vaccine, unspecified formulation Ángel Pluskota DO Work Phone: [facility] 09-08-2020 Pfizer-BioNTech COVID-19 Vacc 30 MCG/0.3ML Intramuscular Suspension Giselle Boykin Work Phone: [facility] 08-18-2020 Pfizer-BioNTech COVID-19 Vacc 30 MCG/0.3ML Intramuscular Suspension Gisellesaleem Boykin Work Phone: [facility] 04-11-2019 influenza virus vaccine, unspecified formulation MAXINE BLAIR MD [facility] 04-11-2019 influenza, high dose seasonal, preservative-free; Translations: [Fluzone High-Dose 0.5 ML Intramuscular Suspension Prefilled Syringe] Maura Lange IM-Tuacarzvu-Ehvjr a 170 DO Work Phone: Comment on above: Series: 02-11-2018 influenza virus vaccine, unspecified formulation MAXINE BLAIR MD [facility] 02-11-2018 influenza, injectabl e, quadrivalent, preservative free; Translations: [Fluzone Quadrivalent 0.5 ML Intramuscular Suspension] Maura Lange FD-Apxopjohd-Atckz a 170 DO Work Phone: Comment on above: Series: 12-14-2016 influenza virus vaccine, unspecified formulation MAXINE BLAIR MD [facility] 12-14-2016 influenza, seasonal, injectable Ángel Vicente DO Work Phone: [facility] Work Phone: 12-14-2016 influenza, injectabl e, quadrivalent, preservative free; Translations: [Fluzone Quadrivalent 0.5 ML Intramuscular Suspension Prefilled Syringe] Maura Lange HK-Dzceqwegb-Goisc a 170 DO Work Phone: Comment on above: Series: 12-30-2015 Flu vaccine, quadrivalent, high-dose, preservative free, age 65y+ (FLUZONE) Maura Lange MD Work Phone: [facility] Work Phone: 12-30-2015 Influenza Vaccine, unspecified formulation [facility] [place] 12-16-2015 meningococcal polysaccharide (groups A, C, Y and W-135) diphtheria toxoid conjugate vaccine (MCV4P) Giselle Boykin Work Phone: [facility] Work Phone: 12-16-2015 tetanus toxoid, redu geovanna diphtheria toxoid, and acellular pertussis vaccine, adsorbed Giselle Boykin Work Phone: [facility] Work Phone: 12-16-2015 meningococcal vaccin e of unknown formulation and unknown serogroups [facility] [place] 11-26-2015 influenza, seasonal, injectable, preservative free Maura Lange DH-Cdhaysanp-Eivxn a 170 DO Work Phone: Comment on above: Series: 02-18-2015 influenza virus vaccine, unspecified formulation MAXINE BLAIR MD [facility] 02-18-2015 influenza, seasonal, injectable, preservative free; Translations: [Fluarix] Maura Lange SZ-Qfezkxaqc-Fwf in a 170 DO Work Phone: Comment on above: Series: 01-13-2008 measles, mumps and rubella virus vaccine Koby Braun WAREHOUSE 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AIRPORT DUTY MANAGER Work Phone: [facility] 01-13-2008 varicella virus vaccine Rick nilo Braun WAREHOUSE 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AIRPORT DUTY MANAGER Work Phone: [facility] 01-07-2008 tetanus toxoid, redu geovanna diphtheria toxoid, and acellular pertussis vaccine, adsorbed Koby Braun WAREHOUSE 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AIRPORT DUTY MANAGER Work Phone: [facility] 12-15-2007 tuberculin skin test ; purified protein derivative solution, intradermal Stephanie Tina WAREHOUSE 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AIRPORT DUTY MANAGER Work Phone: [facility] 11-30-2007 tuberculin skin test ; purified protein derivative solution, intradermal Stephanie Tina WAREHOUSE 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AIRPORT DUTY MANAGER Work Phone: [facility] 09-15-1998 measles, mumps and rubella virus vaccine Giselle Boykin Work Phone: [facility] Work Phone: 09-15-1998 measles/mumps/rubell a virus vaccine MAXINE BLAIR MD [facility] Payers Date Payer Category Payer Self-pay 2022 Medicaid (Managed Care) [id number] 2022 Unknown 2015 Unknown [facility] xxxxxxxxxxxx 2015-Present [phone] [address] [place] [address] xxxxxxxxxxxx [id number] 2002 Medicaid [id number] 2002 Unknown [id number] [id number]. [id number] 1972 Unknown [id number] 2.16.840.1.256045.3.579.2. 356 1972 Unknown [id number] 2.16.840.1.450737.3.579.2. 356 1972 Unknown [id number] 2.16.840.1.051275.3.579.2. 356 1972 Unknown [id number] 2.16.840.1.646367.3.579.2. 356 1972 Unknown [id number] 2.16.840.1.050816.3.579.2. 356 1972 Unknown [id number] 2.16.840.1.467547.3.579.2. 356 1972 Unknown [id number] 2.16.840.1.811808.3.579.2. 356 1972 Unknown [id number] 2.16.840.1.475888.3.579.2. 356 1972 Unknown [id number] 2.16.840.1.981605.3.579.2. 627 1972 Unknown [id number] 2.16.840.1.439338.3.579.2. 627 1972 Unknown [id number] 2.16.840.1.142491.3.579.2. 627 1972 Unknown [id number] 2.16.840.1.456230.3.579.2. 159 1972 Unknown [id number] 2.16.840.1.201650.3.579.2. 1244 1972 Unknown [id number] 2.16.840.1.139635.3.579.2. 1244 1972 Unknown [id number] 2.16.840.1.285021.3.579.2. 1244 1972 Unknown [id number] 2.16.840.1.086041.3.579.2. 1244 1972 Unknown [id number] 2.16.840.1.557899.3.579.2. 1244 1972 Unknown [id number] 2.16.840.1.918097.3.579.2. 1244 1972 Unknown [id number] 2.16.840.1.410649.3.579.2. 1244 1972 Unknown [id number] 2.16.840.1.205911.3.579.2. 1245 1972 Unknown [id number] 2.16.840.1.184426.3.579.2. 124 Unknown [id number] 2.16.840.1.718920.3.579.2. 462 Social History Date Type Detail Facility Start: 11-08-2018 End: 01-31-2023 Tobacco smoking status IDIS Never smoker [facility] Start: 11-08-2018 End: 08-19-2024 Alcohol intake No [place], [place] Start: 1972 Sex Assigned At Not on file [place] Start: 12-03-2019 End: 01-31-2023 Tobacco use and exposure Never used [place] Start: 12-03-2019 End: 11-17-2021 Alcohol intake Current non-drinker of alcohol (finding) [place] Start: 12-21-2021 End: 08-19-2024 Exposure to SARS-CoV-2 (event) Not sure [place], [place] Start: 01-31-2023 End: 08-19-2024 No alcohol use No alcohol use [id number] [facility] Work Phone: Comment on above: [employer]TER; Start: 01-31-2023 End: 10-09-2024 Alcohol intake Ex-drinker (finding) [facility] Work Phone: Start: 1970 Sex Assigned At Female [facility] Start: 06-08-2022 Gender identity Identifies as female gender (finding) [facility] Work Phone: Start: 06-08-2022 Sexual orientation Heterosexual (vonnie michelle) [facility] Work Phone: Adult Depression Screening Assessment 0 [facility] NEGATED: Highlighted row - - [id number] 170 DO Work Phone: NEGATED: Highlighted rowStart: LINUSF History of tobacco use Passive smoker [facility] Medical Equipment Procedure Code Equipment Code Equipment Origin al Text Equipment Identifier Dates Start: 12-14-[address] In Vitro Strip TEST TWICE DAILY. Quantity: 100 Refills: 3 [place] [employer] MANAGER-[employer]Y MANAGER Emili Start : 14-Dec-2015 Active Start: 12-14-2015 Accu-Chek Caitlyn Plus In Vitro Strip Check fasting blood sugar once daily. Record in log book. Quantity: 1 Refills: 3 Giselle Boykin MD Start : 05-Feb-2020 Active 100 Strip Box Start: 02-05-2020 Accu-Chek FastCl ix Lancets Check fasting blood sugar once daily and as needed. Dx 250 Quantity: 1 Refills: 3 Giselle Boykin MD Start : 05-Feb-2020 Active 102 Unit Box Start: 02-05-2020 Accu-Chek Caitlyn Plus In Vitro Strip Check fasting blood sugar once daily. Record in log book. Quantity: 1 Refills: 3 Giselle Boykin MD Start : 05-Feb-2020 Active 100 Strip Box Start: 02-05-2020 Accu-Chek FastCl ix Lancets Check fasting blood sugar once daily and as needed. Dx 250 Quantity: 1 Refills: 3 Giselle Boykin MD Start : 05-Feb-2020 Active 102 Unit Box Start: 02-05-2020 Accu-Chek Caitlyn Plus In Vitro Strip Check fasting blood sugar once daily. Record in log book. Quantity: 1 Refills: 3 Giselle Boykin MD Start : 05-Feb-2020 Active 100 Strip Box Start: 02-05-2020 Accu-Chek FastCl ix Lancets Check fasting blood sugar once daily and as needed. Dx 250 Quantity: 1 Refills: 3 Giselle Boykin MD Start : 05-Feb-2020 Active 102 Unit Box Start: 02-05-2020 Check fasting bl ood sugar once daily. Record in log book. [id number] Start: 02-05-2020 Use to check fas ting glucose once daily. [id number] Start: 11-05-2023 Use to check fas ting glucose once daily. [id number] Start: 11-05-2023 Use to check fas ting glucose once daily. [id number] Start: 12-04-2023 Functional Status Date Assessment Result Facility 08-19-2024 Patient Health Questionnaire 2 item (PHQ-2) [Reported] [facility] Work Phone: 11-15-2023 Functional Status Independent [facility] 10-02-2023 Functional Status Door open [facility] 10-02-2023 Functional Status [facility] 10-02-2023 Functional Status Done [facility] 10-02-2023 Functional Status [facility] 10-01-2023 Functional Status [facility] 10-01-2023 Functional Status Multilevel home [facility] 10-01-2023 Functional Status [facility] 10-01-2023 Functional Status Maintained [facility] 10-01-2023 Functional Status [facility] 09-30-2023 Functional Status Sensory Deficits None [facility] NEGATED: Highlighted row Functional performance Functional status health issues are not documented Disease [id number] 170 DO Work Phone: Mental Status Date Assessment Result Facility 11-15-2023 Mental Status Orientation Orie nted x 4 [facility] 11-14-2023 Mental Status [facility] 10-02-2023 [facility] Highlighted row Cognitive function [Interpretation] Cognitive status health issues are not documented Disease [id number] 170 DO Work Phone: Clinical Notes 09-16-2020 to 08-19-2024 Giselle Boykin MD - 08/19/2024 2:15 PM Juan F Boykin MD - 05/07/2024 11:00 AM ESTAssessment & Plan Note - Maura Lange MD - 05/07/2024 10:30 AM ESTPatient Instructions Note Date & Type Note Facility 08-19-2024 History of Present illness Narrative CHIEF COMPLAINT Diabetes and Hypertension HISTORY OF PRESENT ILLNESS China Ortiz is a 54 y.o. female presents today for follow up of Diabetes and Hypertension HPI Continues to have intermittent nausea. No vomiting. Takes Zofran ~ 3 times per week. Due for repeat labs - blood counts, kidney function, and A1c. Blood sugar well controlled. Has a lot going on - she and daughter are looking into getting their own apartment. 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 REVIEW OF SYSTEMS Review of Systems Constitutional: Negative for chills and fever. Respiratory: Negative for cough and shortness of breath. Cardiovascular: Negative for chest pain, palpitations and leg swelling. Gastrointestinal: Positive for nausea. Negative for abdominal pain, diarrhea and vomiting. Musculoskeletal: Positive for arthralgias. Negative for back pain and gait problem. Skin: Negative for rash. Neurological: Negative for dizziness, light-headedness and headaches. Psychiatric/Behavioral: Negative for confusion. ALLERGIES Bacitracin, Hydromorphone, Sulfamethoxazole-trimethoprim, Victoza 2-bashir [liraglutide], and Opioids - morphine analogues MEDICATIONS Current Outpatient Medications Medication Instructions albuterol 90 mcg/actuation inhaler 2 puffs, Every 4 hours PRN blood sugar diagnostic (True Metrix Glucose Test Strip) strip Use to check fasting glucose once daily. buPROPion XL (WELLBUTRIN XL) 150 mg, oral, Every morning, Do not crush, chew, or split. escitalopram (LEXAPRO) 20 mg, oral, Daily ferrous sulfate 325 mg, oral, 2 times daily (morning and late afternoon) hydroxychloroquine (PLAQUENIL) 200 mg, oral, 2 times daily hydrOXYzine HCL (ATARAX) 25 mg, oral, 2 times daily PRN lancets misc Use to check fasting glucose once daily. lancing device (TRUEdraw Lancing Device) misc Use to check fasting glucose once daily. lisinopril 40 mg, oral, Daily metFORMIN (GLUCOPHAGE) 1,000 mg, oral, 2 times daily (morning and late afternoon) metoprolol succinate XL (TOPROL-XL) 50 mg, oral, Daily omeprazole (PRILOSEC) 40 mg, oral, Daily rosuvastatin (CRESTOR) 5 mg, oral, Nightly TOBACCO USE Tobacco Use History[1] DEPRESSION SCREEN Over the past 2 weeks, how often have you been bothered by any of the following problems? Little interest or pleasure in doing things: Not at all Feeling down, depressed, or hopeless: Not at all SURGICAL HISTORY Past Surgical History: 11/23/2015: SECTION, CLASSIC Comment: Section 04/16/2013: CHOLECYSTECTOMY Comment: Cholecystectomy 08/08/2017: COLONOSCOPY Comment: Complete Colonoscopy 04/16/2013: PANCREATECTOMY Comment: Pancreatectomy 04/16/2013: SPLENECTOMY, TOTAL Comment: Splenectomy 02/05/2020: TOTAL ABDOMINAL HYSTERECTOMY W/ BILATERAL SALPINGOOPHORECTOMY Comment: Total hysterectomy with removal of both tubes and ovaries 04/16/2013: VENTRAL HERNIA REPAIR Comment: Ventral Hernia Repair 02/18/2019: VENTRAL HERNIA REPAIR Comment: Ventral hernia repair OBJECTIVE BP 111/90 Pulse 68 Temp 36.1 C (97 F) Ht 1.575 m (5' 2") Wt 86.5 kg (190 lb 11.2 oz) SpO2 97% BMI 34.88 kg/m BMI: Estimated body mass index is 34.88 kg/m as calculated from the following: Height as of this encounter: 1.575 m (5' 2"). Weight as of this encounter: 86.5 kg (190 lb 11.2 oz). BP Readings from Last 3 Encounters: 08/19/24 111/90 05/07/24 102/81 05/07/24 102/81 Wt Readings from Last 3 Encounters: 08/19/24 86.5 kg (190 lb 11.2 oz) 05/07/24 87.1 kg (192 lb 0.3 oz) 05/07/24 87.1 kg (192 lb 1.6 oz) PHYSICAL EXAM Physical Exam Constitutional: Appearance: Normal appearance. HENT: Head: Normocephalic and atraumatic. Cardiovascular: Rate and Rhythm: Normal rate and regular rhythm. Heart sounds: No murmur heard. Pulmonary: Effort: Pulmonary effort is normal. No respiratory distress. Breath sounds: Normal breath sounds. No wheezing. Abdominal: General: There is no distension. Palpations: Abdomen is soft. Tenderness: There is no abdominal tenderness. Musculoskeletal: Right lower leg: No edema. Left lower leg: No edema. Neurological: General: No focal deficit present. Mental Status: She is alert and oriented to person, place, and time. Mental status is at baseline. Psychiatric: Mood and Affect: Mood normal. Behavior: Behavior normal. Thought Content: Thought content normal. Judgment: Judgment normal. ASSESSMENT AND PLAN Assessment/Plan Problem List Items Addressed This Visit DM2 (diabetes mellitus, type 2) (Multi) - Primary Relevant Orders Hemoglobin A1c Stage 3b chronic kidney disease (Multi) Relevant Orders Basic metabolic panel Leukocytosis Relevant Orders CBC and Auto Differential DM2 - last A1c 6.8% 3 months ago, repeat A1c ordered. - urine albumin / creatinine, BUN, Cr, GFR 05/07/24 - continue current medication and healthy habits. Hypertension - stopped hydrochlorothiazide due to hypotension. Diastolic BP is a little high today. Continue current meds and healthy habits. Continue to hold hydrochlorothiazide. - repeat BMP. Nausea, vomiting - symptoms for several months. Since last visit, the vomiting resolved. Continues to have nausea, takes Zofran for it about 3 times per week. No new meds or supplements. Needs to see GI. 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 Recent WBC 14, but also recovering from bronchitis. Repeat CBC today. Follow-up 3 months. [1] Social History Tobacco Use Smoking Status Never Smokeless Tobacco Never documented in this encounter [facility] Work Phone: 05-07-2024 History of Present illness Narrative CHIEF COMPLAINT Diabetes HISTORY OF PRESENT ILLNESS China Ortiz is a 54 y.o. female presents today for follow up of Diabetes HPI Stopped hydrochlorothiazide due to low blood pressure. Has been having trouble with vomiting - at least once daily for about 1 month. High stress over the last 2 weeks - nephew about 1 week ago, was in hospital 1 week before that. Her vomiting started prior to incident with nephew. Poor appetite, nothing sounds good. Chronic diarrhea - unchanged over her baseline (attributed to cholecystectomy). Recovering from bronchitis & pneumonia - albuterol PRN, doxycycline, Flonase, Zyrtec. - doxycycline started Apr 29. - this all also started after the nausea, vomiting, poor appetite. She has lost about 10 lbs. She denies marijuana use. Remote splenectomy > 20 years ago. States her WBC have always been on high side since that time. REVIEW OF SYSTEMS Review of Systems Constitutional: Positive for unexpected weight change. Negative for chills and fever. Respiratory: Negative for cough and shortness of breath. Cardiovascular: Negative for chest pain, palpitations and leg swelling. Gastrointestinal: Positive for diarrhea, nausea and vomiting. Musculoskeletal: Positive for arthralgias. Negative for back pain and gait problem. Skin: Negative for rash. Neurological: Negative for dizziness, light-headedness and headaches. Psychiatric/Behavioral: Positive for dysphoric mood. Negative for confusion. The patient is nervous/anxious. ALLERGIES Bacitracin, Hydromorphone, Sulfamethoxazole-trimethoprim, Victoza 2-bashir [liraglutide], and Opioids - morphine analogues MEDICATIONS Current Outpatient Medications Medication Instructions albuterol 90 mcg/actuation inhaler 2 puffs, Every 4 hours PRN blood sugar diagnostic (True Metrix Glucose Test Strip) strip Use to check fasting glucose once daily. buPROPion XL (WELLBUTRIN XL) 150 mg, oral, Every morning, Do not crush, chew, or split. escitalopram (LEXAPRO) 20 mg, oral, Daily hydroxychloroquine (PLAQUENIL) 200 mg, oral, 2 times daily hydrOXYzine HCL (ATARAX) 25 mg, oral, 2 times daily PRN lancets misc Use to check fasting glucose once daily. lancing device (TRUEdraw Lancing Device) misc Use to check fasting glucose once daily. lisinopril 40 mg, oral, Daily metFORMIN (GLUCOPHAGE) 1,000 mg, oral, 2 times daily (morning and late afternoon) metoprolol succinate XL (TOPROL-XL) 50 mg, oral, Daily omeprazole (PRILOSEC) 40 mg, oral, Daily ondansetron (ZOFRAN) 4 mg, oral, Every 8 hours PRN rosuvastatin (CRESTOR) 5 mg, oral, Nightly TOBACCO USE Social History Tobacco Use Smoking Status Never Smokeless Tobacco Never DEPRESSION SCREEN Over the past 2 weeks, how often have you been bothered by any of the following problems? Little interest or pleasure in doing things: Not at all Feeling down, depressed, or hopeless: Not at all SURGICAL HISTORY Past Surgical History: 11/23/2015: SECTION, CLASSIC Comment: Section 04/16/2013: CHOLECYSTECTOMY Comment: Cholecystectomy 08/08/2017: COLONOSCOPY Comment: Complete Colonoscopy 04/16/2013: PANCREATECTOMY Comment: Pancreatectomy 04/16/2013: SPLENECTOMY, TOTAL Comment: Splenectomy 02/05/2020: TOTAL ABDOMINAL HYSTERECTOMY W/ BILATERAL SALPINGOOPHORECTOMY Comment: Total hysterectomy with removal of both tubes and ovaries 04/16/2013: VENTRAL HERNIA REPAIR Comment: Ventral Hernia Repair 02/18/2019: VENTRAL HERNIA REPAIR Comment: Ventral hernia repair OBJECTIVE BP 102/81 Pulse 78 Temp 36.3 C (97.3 F) Ht 1.575 m (5' 2") Wt 87.1 kg (192 lb 0.3 oz) SpO2 99% BMI 35.12 kg/m BMI: Estimated body mass index is 35.12 kg/m as calculated from the following: Height as of this encounter: 1.575 m (5' 2"). Weight as of this encounter: 87.1 kg (192 lb 0.3 oz). BP Readings from Last 3 Encounters: 05/07/24 102/81 05/07/24 102/81 03/20/24 (!) 143/99 Wt Readings from Last 3 Encounters: 05/07/24 87.1 kg (192 lb 0.3 oz) 05/07/24 87.1 kg (192 lb 1.6 oz) 03/20/24 91.4 kg (201 lb 8 oz) Lab Results Component Value Date WBC 14.2 (H) 05/05/2024 HGB 13.4 05/05/2024 HCT 40.5 05/05/2024 MCV 87.9 05/05/2024 PLT 663 (H) 05/05/2024 Lab Results Component Value Date GLUCOSE 98 05/05/2024 CALCIUM 9.4 05/05/2024 NA 134 (L) 05/05/2024 K 5.2 05/05/2024 CO2 26 05/05/2024 CL 97 (L) 05/05/2024 BUN 26 (H) 05/05/2024 CREATININE 1.59 (H) 05/05/2024 Lab Results Component Value Date ALT 9 05/05/2024 AST 15 05/05/2024 ALKPHOS 116 05/05/2024 BILITOT 0.5 05/05/2024 Lab Results Component Value Date CHOL 127 05/05/2024 CHOL 162 05/03/2023 CHOL 182 04/04/2022 Lab Results Component Value Date HDL 47 (L) 05/05/2024 HDL 51.5 05/03/2023 HDL 56.7 04/04/2022 Lab Results Component Value Date LDLCALC 57 05/05/2024 LDLCALC 73 05/03/2023 Lab Results Component Value Date TRIG 151 (H) 05/05/2024 TRIG 188 (H) 05/03/2023 TRIG 106 04/04/2022 No components found for: CHOLHDL Lab Results Component Value Date HGBA1C 6.3 05/07/2024 PHYSICAL EXAM Physical Exam Constitutional: Appearance: Normal appearance. HENT: Head: Normocephalic and atraumatic. Cardiovascular: Rate and Rhythm: Normal rate and regular rhythm. Heart sounds: No murmur heard. Pulmonary: Effort: Pulmonary effort is normal. No respiratory distress. Breath sounds: Normal breath sounds. No wheezing. Abdominal: General: There is no distension. Palpations: Abdomen is soft. Tenderness: There is no abdominal tenderness. Musculoskeletal: Right lower leg: No edema. Left lower leg: No edema. Neurological: General: No focal deficit present. Mental Status: She is alert and oriented to person, place, and time. Mental status is at baseline. Psychiatric: Mood and Affect: Mood normal. Behavior: Behavior normal. Thought Content: Thought content normal. Judgment: Judgment normal. ASSESSMENT AND PLAN Assessment/Plan Problem List Items Addressed This Visit Benign essential hypertension DM2 (diabetes mellitus, type 2) (Multi) - Primary Relevant Orders POCT glycosylated hemoglobin (Hb A1C) manually resulted (Completed) Albumin-Creatinine Ratio, Urine Random Postsplenectomy thrombocytosis Systemic lupus erythematosus (Multi) Overview Follows with Dr. Lange Nausea and vomiting Relevant Medications ondansetron (Zofran) 4 mg tablet Other Relevant Orders Referral to Gastroenterology Leukocytosis DM2 - well controlled, continue current medication. - check urine albumin Hypertension - stopped hydrochlorothiazide due to hypotension, which is likely in part due to nausea, vomiting, and weight loss. OK to stay off hydrochlorothiazide for now and will continue to monitor. Nausea, vomiting - symptoms x 1 month, no apparent triggered. Started prior to 2 stressful events - unexpected of nephew and a bout of bronchitis. Denies any other new meds or supplements, no marijuana use. Unlikely viral. May have gastroparesis. Rx for Zofran for symptom relief, referral to GI for additional evaluation. 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 Recent WBC 14, but also recovering from bronchitis. Will recheck numbers in 3 months. Elevated creatinine on recent labs likely due to dehydration from vomiting. Encouraged her to hydrate. She has some Liquid IV packs at home that she will try. Follow-up 3 months. documented in this encounter [facility] Work Phone: 05-07-2024 Evaluation + Plan note Associated Problem(s): Systemic lupus erythematosus (Multi) No signs of increased disease activity on exam. Pt to continue on plaquenil. Recent labs do show a high wbc which may be due to infection but also worsening renal function and will need to monitor. Lupus labs ordered to evaluate Orders: Anti-DNA Antibody, Double-Stranded; Future C3 Complement; Future C4 Complement; Future C-Reactive Protein; Future Sedimentation Rate; Future [facility] Work Phone: 05-07-2024 Evaluation + Plan note Associated Problem(s): Encounter for monitoring of hydroxychloroquine therapy You are on chronic plaquenil. Make sure you see your eye doctor yearly. If you need an eye doctor, let me know and I can place a referral Plaquenil is dosed based on your weight. We will make sure your dose is below the maximum daily dose of 5mg/kg [facility] Work Phone: 05-07-2024 History of Present illness Narrative Images from the original note were not included. [facility] RHEUMATOLOGY PROGRESS NOTE China Ortiz 54 y.o. female : 1970 PCP: Giselle Boykin MD Chief Complaint Patient presents with Lupus SUBJECTIVE Pt reports she is not doing well Nephew of a gunshot wound to his head. While pt was spending time in the hospital, she got sick with bronchitis and now pneumonia. Still on doxycycline Prior to this, pt started having episodes of nausea and vomiting. Not eating a lot because of it. Under a lot of stress. No specific lupus symptoms Is seeing PCP later today to evaluate symptoms Records since [facility] seen [facility] Record Patient Active Problem List Diagnosis Date Noted Stage 3b chronic kidney disease (Multi) 05/07/2024 Atypical chest pain 11/01/2023 Memory loss 11/01/2023 Class 2 severe obesity due to excess calories with serious comorbidity and body mass index (BMI) of 36.0 to 36.9 in adult 05/03/2023 Encounter for monitoring of hydroxychloroquine therapy 04/29/2023 Anemia 12/07/2022 Asplenia 12/07/2022 Benign essential hypertension 12/07/2022 Chronic diarrhea 12/07/2022 Chronic migraine without aura, with intractable migraine, so stated, with status migrainosus 12/07/2022 DM2 (diabetes mellitus, type 2) (Multi) 12/07/2022 GERD (gastroesophageal reflux disease) 12/07/2022 Mixed hyperlipidemia 12/07/2022 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 Anxiety 12/07/2022 Situational depression 12/07/2022 Systemic lupus erythematosus (Multi) 12/07/2022 Vitamin D deficiency 12/07/2022 Liver hemangioma 12/07/2022 Past Medical History: Diagnosis Date Abnormal mammogram 12/07/2022 Acute pancreatitis 01/22/2003 Anxiety Benign intracranial hypertension 05/22/2018 Pseudotumor cerebri Caffeine use Cyst and pseudocyst of pancreas ([facility]) 01/22/2003 Dental infection 04/18/2023 Diabetes 1.5, managed as type 2 (Multi) Herpes simplex 08/07/2019 History of herpes simplex infection Hyperkalemia 08/26/2020 History of hyperkalemia Hypertension Left anterior knee pain 09/19/2023 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 blood sugar diagnostic (True Metrix Glucose Test Strip) strip Use to check fasting glucose once daily. 100 strip 3 buPROPion XL (Wellbutrin XL) 150 mg 24 hr tablet Take 1 tablet (150 mg) by mouth once daily in the morning. Do not crush, chew, or split. 30 tablet 2 escitalopram (Lexapro) 20 mg tablet Take 1 tablet (20 mg) by mouth once daily. 90 tablet 3 hydroxychloroquine (Plaquenil) 200 mg tablet Take 1 tablet (200 mg) by mouth 2 times a day. 180 tablet 3 hydrOXYzine HCL (Atarax) 25 mg tablet Take 1 tablet by mouth twice daily as needed for anxiety 30 tablet 3 lancets misc Use to check fasting glucose once daily. 100 each 3 lancing device (TRUEdraw Lancing Device) misc Use to check fasting glucose once daily. 100 each 3 lisinopril 40 mg tablet Take 1 tablet (40 mg) by mouth once daily. 90 tablet 3 metFORMIN (Glucophage) 500 mg tablet Take 2 tablets (1,000 mg) by mouth 2 times daily (morning and late afternoon). 360 tablet 3 metoprolol succinate XL (Toprol-XL) 50 mg 24 hr tablet Take 1 tablet by mouth once daily 90 tablet 3 rosuvastatin (Crestor) 5 mg tablet Take 1 tablet (5 mg) by mouth once daily at bedtime. 90 tablet 3 hydroCHLOROthiazide (HYDRODiuril) 25 mg tablet Take 1 tablet (25 mg) by mouth once daily. 90 tablet 3 omeprazole (PriLOSEC) [address] capsule Take 1 capsule (40 mg) by mouth once daily. 30 capsule 11 No current facility-administered medications on file prior to visit. Allergies Allergen Reactions Bacitracin Other Hydromorphone Hives Sulfamethoxazole-Trimethoprim Other blisters Victoza 2-Bashir [Liraglutide] Hives Opioids - Morphine Analogues Nausea And Vomiting, Rash and Nausea/vomiting dilaudid Social History Tobacco Use Smoking status: Never Smokeless tobacco: Never Vaping Use Vaping status: Never Used Substance Use Topics Alcohol use: Not Currently Drug use: Never Review of Systems Constitutional: Positive for fatigue. Negative for fever. Respiratory: Positive for cough. Negative for shortness of breath. Cardiovascular: Negative for leg swelling. Gastrointestinal: Positive for nausea and vomiting. Musculoskeletal: Positive for arthralgias. Negative for back pain, gait problem, joint swelling and myalgias. Skin: Negative for color change and rash. Neurological: Negative for weakness and numbness. Psychiatric/Behavioral: Positive for dysphoric mood. PHYSICAL EXAM BP 102/81 Pulse 78 Temp 36.3 C (97.3 F) (Temporal) Ht 1.575 m (5' 2") Wt 87.1 kg (192 lb 1.6 oz) SpO2 99% BMI 35.14 kg/m Depression: Not at risk (05/07/2024) PHQ-2 PHQ-2 Score: 0 Physical Exam Vitals reviewed. Constitutional: General: She is not in acute distress. Appearance: Normal appearance. HENT: Head: Normocephalic and atraumatic. Mouth/Throat: Dentition: Abnormal dentition. Eyes: Conjunctiva/sclera: Conjunctivae normal. Neck: Vascular: No carotid bruit. Cardiovascular: Rate and Rhythm: Normal rate and regular rhythm. Pulses: Normal pulses. Heart sounds: Normal heart sounds. No murmur heard. No friction rub. No gallop. Pulmonary: Effort: Pulmonary effort is normal. No respiratory distress. Breath sounds: Normal breath sounds. Musculoskeletal: General: No swelling, tenderness or deformity. Cervical back: Normal range of motion and neck supple. Right lower leg: No edema. Left lower leg: No edema. Comments: No synovitis of examined joints Mild swelling dorsum of hand Skin: Coloration: Skin is not pale. Findings: Rash (erythema on inner part of R arm) present. No erythema. Neurological: General: No focal deficit present. Mental Status: She is alert and oriented to person, place, and time. Mental status is at baseline. Gait: Gait normal. Psychiatric: Mood and Affect: Mood is depressed. Affect is tearful. Cognition and Memory: Memory is impaired. Comments: grieving Health Maintenance Due Topic Date Due Yearly Adult Physical Never done HIV Screening Never done Diabetes: Retinopathy Screening Never done Hepatitis C Screening Never done Hepatitis B Vaccines (1 of 3 - 19+ 3-dose series) Never done Hepatitis A Vaccines (1 of 2 - Risk 2-dose series) Never done Pneumococcal Vaccine (1 of 2 - PCV) Never done Zoster Vaccines (1 of 2) 2022 Diabetes: Urine Protein Screening 09/14/2022 Mammogram 05/11/2023 COVID-19 Vaccine (2023- season) Never done Assessment/plan Assessment & Plan Systemic lupus erythematosus, unspecified SLE type, unspecified organ involvement status (Multi) No signs of increased disease activity on exam. Pt to continue on plaquenil. Recent labs do show a high wbc which may be due to infection but also worsening renal function and will need to monitor. Lupus labs ordered to evaluate Orders: Anti-DNA Antibody, Double-Stranded; Future C3 Complement; Future C4 Complement; Future C-Reactive Protein; Future Sedimentation Rate; Future Encounter for monitoring of hydroxychloroquine therapy You are on chronic plaquenil. Make sure you see your eye doctor yearly. If you need an eye doctor, let me know and I can place a referral Plaquenil is dosed based on your weight. We will make sure your dose is below the maximum daily dose of 5mg/kg Follow up: ___6__months, sooner if change in symptoms Immunization History Administered Date(s) Administered COVID-19, mRNA, LNP-S, PF, 30 mcg/0.3 mL dose 08/18/2020, 09/08/2020, 04/07/2021 Flu vaccine (IIV4), preservative free *Check age/dose* 12/14/2016, 02/11/2018, 03/20/2023 Flu vaccine, quadrivalent, high-dose, preservative free, age 65y+ (FLUZONE) 12/30/2015 Flu vaccine, quadrivalent, recombinant, preservative free, adult (FLUBLOK) 12/25/2020 Flu vaccine, trivalent, preservative free, HIGH-DOSE, age 65y+ (Fluzone) 04/11/2019 Flu vaccine, trivalent, preservative free, age 6 months and greater (Fluarix/Fluzone/Flulaval) 02/18/2015, 11/26/2015, 03/20/2024 Influenza, Unspecified 02/18/2015, 12/14/2016, 02/11/2018, 04/11/2019, 12/25/2020 Influenza, seasonal, injectable 12/14/2016, 12/25/2020 MMR vaccine, subcutaneous (MMR II) 09/15/1998, 01/13/2008 Meningococcal ACWY-D (Menactra) 4-valent conjugate vaccine 12/16/2015 PPD Test 11/30/2007, 12/15/2007 Tdap vaccine, age 7 year and older (BOOSTRIX, ADACEL) 01/07/2008, 12/16/2015 Varicella vaccine, subcutaneous (VARIVAX) 01/13/2008 Orders Only on 05/05/2024 Component Date Value Ref Range Status CHOLESTEROL, TOTAL 05/05/2024 127 <200 mg/dL Final HDL CHOLESTEROL 05/05/2024 47 (L) > OR = 50 mg/dL Final TRIGLYCERIDES 05/05/2024 151 (H) <150 mg/dL Final LDL-CHOLESTEROL 05/05/2024 57 mg/dL (calc) Final Comment: Reference range: <100 Desirable range <100 mg/dL for primary prevention; <70 mg/dL for patients with CHD or diabetic patients with > or = 2 CHD risk factors. LDL-C is now calculated using the Manjinder-Kathy calculation, which is a validated novel method providing better accuracy than the Friedewald equation in the estimation of LDL-C. Manjinder LONDON et al. RICK. 2013;310(19): 7862-1109 (http://education.SLEDVision.com/faq/NQM277) CHOL/HDLC RATIO 05/05/2024 2.7 <5.0 (calc) Final NON HDL CHOLESTEROL 05/05/2024 80 <130 mg/dL (calc) Final Comment: For patients with diabetes plus 1 major ASCVD risk factor, treating to a non-HDL-C goal of <100 mg/dL (LDL-C of <70 mg/dL) is considered a therapeutic option. GLUCOSE 05/05/2024 98 65 - 99 mg/dL Final Comment: Fasting reference interval UREA NITROGEN (BUN) 05/05/2024 26 (H) 7 - 25 mg/dL Final CREATININE 05/05/2024 1.59 (H) 0.50 - 1.03 mg/dL Final EGFR 05/05/2024 39 (L) > OR = 60 mL/min/1.73m2 Final SODIUM 05/05/2024 134 (L) 135 - 146 mmol/L Final POTASSIUM 05/05/2024 5.2 3.5 - 5.3 mmol/L Final CHLORIDE 05/05/2024 97 (L) 98 - 110 mmol/L Final CARBON DIOXIDE 05/05/2024 26 20 - 32 mmol/L Final ELECTROLYTE BALANCE 05/05/2024 11 7 - 17 mmol/L (calc) Final CALCIUM 05/05/2024 9.4 8.6 - 10.4 mg/dL Final PROTEIN, TOTAL 05/05/2024 6.5 6.1 - 8.1 g/dL Final ALBUMIN 05/05/2024 3.9 3.6 - 5.1 g/dL Final BILIRUBIN, TOTAL 05/05/2024 0.5 0.2 - 1.2 mg/dL Final ALKALINE PHOSPHATASE 05/05/2024 116 37 - 153 U/L Final AST 05/05/2024 15 10 - 35 U/L Final ALT 05/05/2024 9 6 - 29 U/L Final WHITE BLOOD CELL COUNT 05/05/2024 14.2 (H) 3.8 - 10.8 Thousand/uL Final RED BLOOD CELL COUNT 05/05/2024 4.61 3.80 - 5.10 Million/uL Final HEMOGLOBIN 05/05/2024 13.4 11.7 - 15.5 g/dL Final HEMATOCRIT 05/05/2024 40.5 35.0 - 45.0 % Final MCV 05/05/2024 87.9 80.0 - 100.0 fL Final MCH 05/05/2024 29.1 27.0 - 33.0 pg Final MCHC 05/05/2024 33.1 32.0 - 36.0 g/dL Final Comment: For adults, a slight decrease in the calculated MCHC value (in the range of 30 to 32 g/dL) is most likely not clinically significant; however, it should be interpreted with caution in correlation with other red cell parameters and the patient's clinical condition. RDW 05/05/2024 13.5 11.0 - 15.0 % Final PLATELET COUNT 05/05/2024 663 (H) 140 - 400 Thousand/uL Final MPV 05/05/2024 9.2 7.5 - 12.5 fL Final ABSOLUTE NEUTROPHILS 05/05/2024 8,719 (H) 1,500 - 7,800 cells/uL Final ABSOLUTE LYMPHOCYTES 05/05/2024 3,649 850 - 3,900 cells/uL Final ABSOLUTE MONOCYTES 05/05/2024 1,448 (H) 200 - 950 cells/uL Final ABSOLUTE EOSINOPHILS 05/05/2024 227 15 - 500 cells/uL Final ABSOLUTE BASOPHILS 05/05/2024 156 0 - 200 cells/uL Final NEUTROPHILS 05/05/2024 61.4 % Final LYMPHOCYTES 05/05/2024 25.7 % Final MONOCYTES 05/05/2024 10.2 % Final EOSINOPHILS 05/05/2024 1.6 % Final BASOPHILS 05/05/2024 1.1 % Final COMMENT(S) 05/05/2024 Final Comment: Review of peripheral smear confirms automated results. HEMOGLOBIN A1c 05/05/2024 6.8 (H) <5.7 % of total Hgb Final Comment: For someone without known diabetes, a hemoglobin A1c value of 6.5% or greater indicates that they may have diabetes and this should be confirmed with a follow-up test. For someone with known diabetes, a value <7% indicates that their diabetes is well controlled and a value greater than or equal to 7% indicates suboptimal control. A1c targets should be individualized based on duration of diabetes, age, comorbid conditions, and other considerations. Currently, no consensus exists regarding use of hemoglobin A1c for diagnosis of diabetes for children. eAG (mg/dL) 05/05/2024 148 mg/dL Final eAG (mmol/L) 05/05/2024 8.2 mmol/L Final documented in this encounter [facility] Work Phone: 05-07-2024 Instructions Maura Lange MD - 05/07/2024 10:30 AM EST It was a pleasure to see you today Please call if your symptoms worsen Please review your summary for education and reminders. Follow up at your next appointment. If you had labs/xrays done today, you will be able to view on [facility]. We will contact you when the results are reviewed for further discussion. Please note that you may receive your results before I have had a chance to review. Please know I will be contacting you for discussion Homegoing instructions for all patient A healthy lifestyle helps chronic diseases These are all the goals you should strive to improve your overall health Blood pressure <130/85 BMI of <30 or waist circumference that is 1/2 of your height Fasting blood sugar <107 (if you are diabetic, aim for an A1c <6.4%_ LDL cholesterol <130 Avoid smoking Manage your stress Get your preventive exams Get your immunizations Some guidelines for all patients with lupus Wear sunscreen, even on cloudy days. Sun can worsening rashes and cause fatigue and flares Exercise. Movement is medicine. Even stretches and light yoga count If you smoke, stop. Smoking makes skin manifestations of lupus much harder to treat. Lupus (and the medications you need to be on) increase infection risk. Keep up to date with your vaccinations Lupus increases heart and stroke risk. Make sure you work to get your cholesterol and blood pressure under control. If you have diabetes, it is important to get your A1c below 7% If you are on hydroxychloroquine (plaquenil), make sure you see your eye doctor regularly and get testing to monitor for any potential changes Think about your bone health. Osteoporosis is a risk, especially if you are or have been on steroids. Mental health can be an issue. Not only does having a diagnosis of lupus cause depression but lupus itself can be the cause of mental health issues. If you feel you need help, please call me or your primary care doctor. We are here for you documented in this encounter [facility] Work Phone: 05-07-2024 Miscellaneous Notes Associated Problem(s): Systemic lupus erythematosus (Multi) No signs of increased disease activity on exam. Pt to continue on plaquenil. Recent labs do show a high wbc which may be due to infection but also worsening renal function and will need to monitor. Lupus labs ordered to evaluate Orders: Anti-DNA Antibody, Double-Stranded; Future C3 Complement; Future C4 Complement; Future C-Reactive Protein; Future Sedimentation Rate; Future Associated Problem(s): Encounter for monitoring of hydroxychloroquine therapy You are on chronic plaquenil. Make sure you see your eye doctor yearly. If you need an eye doctor, let me know and I can place a referral Plaquenil is dosed based on your weight. We will make sure your dose is below the maximum daily dose of 5mg/kg documented in this encounter [facility] Work Phone: 04-29-2024 History of Present illness Narrative Radiology Service Progress Note PATIENT NAME: China Ortiz DATE OF SERVICE: April 29, 2024 TIME: 3:32 PM PATIENT IDENTITY VERIFICATION COMPLETED USING TWO (2) IDENTIFIERS: Name and Date of confirmed by patient verbally. FALL SCREENING: Has the patient had 2 falls in the last year or 1 fall with injury or currently using an Ambulatory Assistive Device (Walker, Cane, Wheelchair, Crutches, etc.)? No PATIENT GENDER DATA: Assigned female at . status: : No status: NO. PATIENT RELEVANT IMPLANT DATA REVIEWED: Not Applicable PATIENT PRESENTS WITH AN IMPLANTABLE OR ATTACHED FAST FOOD FRY COOK: No RADIOLOGY DEPARTMENT: General X-ray: Exam(s) Completed: Chest X-Ray PERIPHERAL IV DATA: Not applicable SIGNED BY: RT Karan(R) April 29, 2024 3:32 PM documented in this encounter [facility] 04-29-2024 Note HNO ID: [id number] Author: ANIRUDH TIDWELL RT(Randolph) Service: ? Author Type: Technologist Type: Progress Notes Filed: 04/29/2024 15:32 Note Text: Radiology Service Progress Note PATIENT NAME: China Ortiz DATE OF SERVICE: April 29, 2024 TIME: 3:32 PM PATIENT IDENTITY VERIFICATION COMPLETED USING TWO (2) IDENTIFIERS: Name and Date of confirmed by patient verbally. FALL SCREENING: Has the patient had 2 falls in the last year or 1 fall with injury or currently using an Ambulatory Assistive Device (Walker, Cane, Wheelchair, Crutches, etc.)? No PATIENT GENDER DATA: Assigned female at . status: : No status: NO. PATIENT RELEVANT IMPLANT DATA REVIEWED: Not Applicable PATIENT PRESENTS WITH AN IMPLANTABLE OR ATTACHED FAST FOOD FRY COOK: No RADIOLOGY DEPARTMENT: General X-ray: Exam(s) Completed: Chest X-Ray PERIPHERAL IV DATA: Not applicable SIGNED BY: Anirudh Tidwell, RT(R) April 29, 2024 3:32 PM [facility] 04-29-2024 Instructions Stephanie Wilder APRN.[employer] MANAGER - 04/29/2024 2:52 PM EST Images from the original note were not included. - Follow up with PCP in 3-5 days , sooner should any other issues arise. Emergency room if symptoms change or worsen. [facility] [place] [id number] [address] [place] [id number] Emergency Department Diagnosis: Assessment ACUTE BRONCHITIS: You have acute bronchitis. This means the airway passages in your lungs are inflamed. Bronchitis may be caused by viruses or bacteria. Inhaling cigarette smoke will always make it worse. Exposure to irritating chemicals or second hand smoke as well as allergies can contribute to bronchitis. Repeat episodes of bronchitis may cause lifelong lung problems. Acute bronchitis is usually treated with rest, fluids, cough medicine, and possibly antibiotics or inhaled medicine to open up the small airways. It is very important that you avoid smoke and drink increased amounts of fluids. A cool air vaporizer can help thin bronchial secretions. This makes it easier to cough and clear your chest. If you are a cigarette smoker, consider using nicotine gum or skin patches to help you withdraw. Recovery from bronchitis is often slow, but you should start feeling better after 2-3 days of treatment. Please call your doctor or return here if you have any of the following symptoms: Increased fever, chills, or chest pain. Severe shortness of breath or bloody sputum. Do not improve after 3 days of proper treatment. Adult Sinusitis Patient Education What is Sinusitis? Sinusitis [[id number]] is inflammation of the sinuses or swelling of the lining of the sinus cavity or nose. During an infection the sinuses become blocked with fluid causing swelling of the lining of the sinuses. Symptoms: (viral and bacterial infections) Stuffy nose Runny nose Postnasal drip Fever Toothache Headache Tiredness Cough Sore throat Face and head pressure and or pain Common causes: 98% of sinus infections are viral caused by viruses. Risk Factors of Sinusitis Include: Allergies, air pollution, indoor humidity and outdoor temperature changes, andstructural changes in the nose may contribute to sinus pain, pressure and congestion. When to get help? Temperature greater than 100.4 F Symptoms lasting more than 10 days or worsening symptoms greater than 7-10 days. If you do not improve or worsen after a course of antibiotics, you should be re-examined. Diagnosis and Treatment: Your healthcare provider will ask a number of questions about your symptoms and how long they have occurred. If symptoms of sinusitis persist greater than 10 days, it is possible you have a bacterial sinus infection and an antibiotic is prescribed. If it is viral, antibiotics will not help. You may be instructed to take [id number] medications for symptoms. including fever reducers acetaminophen or ibuprofen, nasal saline spray, cough and cold preparations and decongestants as prescribed by the physician, nurse practitioner or physician showroom sales assistant. Self-Care and Prevention: Rest Fluids for hydration Good hand washing Humidifier Avoid smoking and exposure to second hand smoke Avoid sick contacts documented in this encounter [facility] 04-29-2024 Note HNO ID: [id number] Author: STEPHANIE WILDER APRN.MIGUELINA Service: ? Author Type: Nurse Practitioner Type: Progress Notes Filed: 04/29/2024 15:35 Note Text: China Ortiz is a 54 year old female who presents with Cough (Cough x 1 week/Vomiting, diarrhea and sore throat x 2-3 days ) China is a 54 year old female coming in with patient complaining of coughing for 1 weeks. Cough is described as moist, productive with yellow sputum, congested. Associated symptoms include congestion, sore throat, and wheezing. History is negative for chest pain, stridor, and trouble breathing. No Temperature at home . Activity, oral fluid intake and urine output are normal. Treatments have included OTC cough suppressants, with minimal. PAST MEDICAL HISTORY Diagnosis Date Acute pancreatitis 09/2002 3 previous bouts Cyst and pseudocyst of pancreas 2002 Family history of diabetes mellitus Lupus Migraine without aura ACTIVE PROBLEM LIST Cyst and Pseudocyst of Pancreas Acute Pancreatitis Migraine Without Aura Family History of Diabetes Mellitus Migraine Uti (Urinary Tract Infection) Lupus Essential Hypertension Current Outpatient Medications Medication Sig Dispense Refill TRUE METRIX GLUCOSE TEST STRIP test strip USE TO CHECK FASTING GLUCOSE ONCE DAILY buPROPion XL (WELLBUTRIN XL) 150 mg 24 hr tablet TAKE 1 TABLET BY MOUTH ONCE DAILY IN THE MORNING DO NOT CRUSH, CHEW OR SPLIT FEROSUL 325 mg (65 mg iron) tablet Take 1 tablet by mouth two times a day with meals. hydroCHLOROthiazide 25 mg tablet Take 25 mg by mouth. promethazine (PHENERGAN) 25 mg tablet Take 1 tablet by mouth every 8 hours as needed for nausea/vomiting. Do NOT take hydroxyzine with this medication. 12 tablet 0 hydrOXYzine HCl (ATARAX) 25 mg tablet Take 25 mg by mouth twice daily as needed. zonisamide (ZONEGRAN) 100 mg capsule Take 300 mg by mouth daily at bedtime. omeprazole (PRILOSEC) 40 mg capsule Take 40 mg by mouth once daily. escitalopram oxalate (LEXAPRO) 20 mg tablet Take 20 mg by mouth once daily. metFORMIN (GLUCOPHAGE) 500 mg tablet Take 500 mg by mouth twice daily. rosuvastatin (CRESTOR) 5 mg tablet Take 5 mg by mouth daily at bedtime. diclofenac, EC, (VOLTAREN) 75 mg EC tablet Take 75 mg by mouth twice daily. lisinopril (ZESTRIL, PRINIVIL) 20 mg tablet Take 20 mg by mouth once daily. metoprolol succinate ER (TOPROL XL) 50 mg 24 hr tablet Take 50 mg by mouth once daily. hydroxychloroquine (PLAQUENIL) 200 mg tablet Take 200 mg by mouth twice daily. ALPRAZolam (XANAX) 0.5 mg tablet Take 0.5 mg by mouth three times daily as needed. No current facility-administered medications for this visit. Social History Tobacco Use Smoking status: Never Passive exposure: Never Vaping Use Vaping status: Never Used Substance Use Topics Alcohol use: Not Currently Drug use: Never Alcohol Use: Not Currently Tobacco Use: Never FAMILY HISTORY Problem Relation Age of Onset Hypertension Mother Lipids Mother Heart Father Hypertension Father other (Uterine Cancer) Mother other (Colon Polyps) Father Cervical Cancer Sister other (Uterine Cancer) Sister other (Alcoholism) Brother Diabetes Maternal Grandmother Diabetes Paternal Grandmother Review of Systems Constitutional: Positive for malaise/fatigue. Negative for chills and fever. HENT: Positive for congestion and sore throat. Negative for ear discharge, ear pain, nosebleeds, sinus pain and tinnitus. Respiratory: Positive for cough, sputum production and wheezing. Negative for shortness of breath and stridor. Cardiovascular: Negative for chest pain and palpitations. Gastrointestinal: Positive for diarrhea and vomiting. Negative for abdominal pain, blood in stool, constipation and nausea. Neurological: Positive for headaches. Negative for dizziness. BP 112/80 Pulse 95 Temp (Src) 98.6 (Temporal) Resp 18 Wt 200 lb (90.7kg) SpO2 97% LMP 11/03/2015 Physical Exam Vitals and nursing note reviewed. Constitutional: Appearance: Normal appearance. HENT: Head: Normocephalic and atraumatic. Right Ear: Hearing, tympanic membrane, ear canal and external ear normal. No mastoid tenderness. Left Ear: Hearing, tympanic membrane, ear canal and external ear normal. No mastoid tenderness. Nose: Comments: Nose: Turbinates with erythema, edema, and discharge, no complete obstructions, boggy nasal, mucus membranes pink, sinus tenderness to percussion Mouth/Throat: Mouth: Mucous membranes are moist. Pharynx: Uvula midline. Posterior oropharyngeal erythema and postnasal drip present. No pharyngeal swelling, oropharyngeal exudate or uvula swelling. Eyes: Extraocular Movements: Extraocular movements intact. Conjunctiva/sclera: Conjunctivae normal. Pupils: Pupils are equal, round, and reactive to light. Cardiovascular: Rate and Rhythm: Normal rate and regular rhythm. Pulses: Normal pulses. Heart sounds: Normal heart soun (more content not included)... [facility] 04-29-2024 History of Present illness Narrative China Ortiz is a 54 year old female who presents with Cough (Cough x 1 week/Vomiting, diarrhea and sore throat x 2-3 days ) China is a 54 year old female coming in with patient complaining of coughing for 1 weeks. Cough is described as moist, productive with yellow sputum, congested. Associated symptoms include congestion, sore throat, and wheezing. History is negative for chest pain, stridor, and trouble breathing. No Temperature at home . Activity, oral fluid intake and urine output are normal. Treatments have included OTC cough suppressants, with minimal. PAST MEDICAL HISTORY Diagnosis Date Acute pancreatitis 09/2002 3 previous bouts Cyst and pseudocyst of pancreas 2002 Family history of diabetes mellitus Lupus Migraine without aura ACTIVE PROBLEM LIST Cyst and Pseudocyst of Pancreas Acute Pancreatitis Migraine Without Aura Family History of Diabetes Mellitus Migraine Uti (Urinary Tract Infection) Lupus Essential Hypertension Current Outpatient Medications Medication Sig Dispense Refill TRUE METRIX GLUCOSE TEST STRIP test strip USE TO CHECK FASTING GLUCOSE ONCE DAILY buPROPion XL (WELLBUTRIN XL) 150 mg 24 hr tablet TAKE 1 TABLET BY MOUTH ONCE DAILY IN THE MORNING DO NOT CRUSH, CHEW OR SPLIT FEROSUL 325 mg (65 mg iron) tablet Take 1 tablet by mouth two times a day with meals. hydroCHLOROthiazide 25 mg tablet Take 25 mg by mouth. promethazine (PHENERGAN) 25 mg tablet Take 1 tablet by mouth every 8 hours as needed for nausea/vomiting. Do NOT take hydroxyzine with this medication. 12 tablet 0 hydrOXYzine HCl (ATARAX) 25 mg tablet Take 25 mg by mouth twice daily as needed. zonisamide (ZONEGRAN) 100 mg capsule Take 300 mg by mouth daily at bedtime. omeprazole (PRILOSEC) 40 mg capsule Take 40 mg by mouth once daily. escitalopram oxalate (LEXAPRO) 20 mg tablet Take 20 mg by mouth once daily. metFORMIN (GLUCOPHAGE) 500 mg tablet Take 500 mg by mouth twice daily. rosuvastatin (CRESTOR) 5 mg tablet Take 5 mg by mouth daily at bedtime. diclofenac, EC, (VOLTAREN) 75 mg EC tablet Take 75 mg by mouth twice daily. lisinopril (ZESTRIL, PRINIVIL) 20 mg tablet Take 20 mg by mouth once daily. metoprolol succinate ER (TOPROL XL) 50 mg 24 hr tablet Take 50 mg by mouth once daily. hydroxychloroquine (PLAQUENIL) 200 mg tablet Take 200 mg by mouth twice daily. ALPRAZolam (XANAX) 0.5 mg tablet Take 0.5 mg by mouth three times daily as needed. No current facility-administered medications for this visit. Social History Tobacco Use Smoking status: Never Passive exposure: Never Vaping Use Vaping status: Never Used Substance Use Topics Alcohol use: Not Currently Drug use: Never Alcohol Use: Not Currently Tobacco Use: Never FAMILY HISTORY Problem Relation Age of Onset Hypertension Mother Lipids Mother Heart Father Hypertension Father other (Uterine Cancer) Mother other (Colon Polyps) Father Cervical Cancer Sister other (Uterine Cancer) Sister other (Alcoholism) Brother Diabetes Maternal Grandmother Diabetes Paternal Grandmother Review of Systems Constitutional: Positive for malaise/fatigue. Negative for chills and fever. HENT: Positive for congestion and sore throat. Negative for ear discharge, ear pain, nosebleeds, sinus pain and tinnitus. Respiratory: Positive for cough, sputum production and wheezing. Negative for shortness of breath and stridor. Cardiovascular: Negative for chest pain and palpitations. Gastrointestinal: Positive for diarrhea and vomiting. Negative for abdominal pain, blood in stool, constipation and nausea. Neurological: Positive for headaches. Negative for dizziness. BP 112/80 Pulse 95 Temp (Src) 98.6 (Temporal) Resp 18 Wt 200 lb (90.7kg) SpO2 97% LMP 11/03/2015 Physical Exam Vitals and nursing note reviewed. Constitutional: Appearance: Normal appearance. HENT: Head: Normocephalic and atraumatic. Right Ear: Hearing, tympanic membrane, ear canal and external ear normal. No mastoid tenderness. Left Ear: Hearing, tympanic membrane, ear canal and external ear normal. No mastoid tenderness. Nose: Comments: Nose: Turbinates with erythema, edema, and discharge, no complete obstructions, boggy nasal, mucus membranes pink, sinus tenderness to percussion Mouth/Throat: Mouth: Mucous membranes are moist. Pharynx: Uvula midline. Posterior oropharyngeal erythema and postnasal drip present. No pharyngeal swelling, oropharyngeal exudate or uvula swelling. Eyes: Extraocular Movements: Extraocular movements intact. Conjunctiva/sclera: Conjunctivae normal. Pupils: Pupils are equal, round, and reactive to light. Cardiovascular: Rate and Rhythm: Normal rate and regular rhythm. Pulses: Normal pulses. Heart sounds: Normal heart sounds. Pulmonary: Effort: Pulmonary effort is normal. No accessory muscle usage, prolonged expiration, respiratory distress or retractions. Breath sounds: No stridor or decreased air movement. Examination of the right-lower field reveals decreased breath sounds. Examination of the left-lower field reveals decreased breath sounds. Decreased breath sounds present. No wheezing, rhonchi or rales. Abdominal: General: Abdomen is flat. Bowel sounds are normal. Palpations: Abdomen is soft. Tenderness: There is no abdominal tenderness. There is no right CVA tenderness or left CVA tenderness. Hernia: No hernia is present. Musculoskeletal: General: Normal range of motion. Cervical back: Normal range of motion and neck supple. Skin: General: Skin is warm and dry. Neurological: General: No focal deficit present. Mental Status: She is alert. Psychiatric: Mood and Affect: Mood normal. Behavior: Behavior normal. ASSESSMENT/PLAN: 1. Bacterial sinusitis - ICD9: 473.9, 041.9, ICD10: J32.9, B96.89 (primary diagnosis) - Will begin treatment with Doxycycline - The patient should also be given warm salt water gargles, throat lozenges and/or OTC throat spray as needed and nasal saline gtts and suction prn for the first 5-7 days of treatment. - Supportive care with plenty of fluids, rest, and analgesia prn. - Follow up with PCP in 3-5 days if symptoms persist or worsen. - DOXYCYCLINE HYCLATE 100 MG TABLET - FLUTICASONE PROPIONATE 50 MCG/ACTUATION NASAL SPRAY,SUSPENSION - CETIRIZINE 10 MG TABLET History and examination consistent with acute uncomplicated sinusitis. No indication for labs or imaging at this time. No evidence of sepsis, strep pharyngitis, or pneumonia. Counseled patient on doxycycline antibiotic treatment, Flonase nasal spray, Zyrtec antihistamine and supportive measures at home. Patient advised to return to clinic or present to ED if symptoms change or worsen. 2. Bronchitis - ICD9: 490, ICD10: J40 - DOXYCYCLINE HYCLATE 100 MG TABLET - BENZONATATE 100 MG CAPSULE - ALBUTEROL SULFATE HFA 90 MCG/ACTUATION AEROSOL INHALER - XR CHEST 2V FRONTAL/LAT History and exam consistent with acute bronchitis. No evidence of pneumonia, sepsis or other acute cardiopulmonary pathology. Based on current exam XRAY is completed in office and negative for pneumonia, waiting for the official read by radiology MD area based on current exam and past medical history, plan is for doxycycline antibiotic treatment, benzonatate cough, albuterol inhaler and symptomatic therapies. Patient advised to return to clinic or go to the ED if symptoms change or worsen. Stephanie Wilder APRN.[employer] documented in this encounter [facility] 03-20-2024 History of Present illness Narrative CHIEF COMPLAINT Diabetes and Hypertension HISTORY OF PRESENT ILLNESS China Ortiz is a 54 y.o. female presents today for follow up of Diabetes and Hypertension HPI States blood sugar is well controlled. BP has remained elevated. Fasting for routine labs. Has been on Lexapro for several years for anxiety and depression with good results, however seems less effective over the last year. Dr. Lange referred her to behavioral medicine, however she was unable to get an appointment. Would like flu shot. REVIEW OF SYSTEMS Review of Systems Constitutional: Negative for chills and fever. Respiratory: Negative for cough and shortness of breath. Cardiovascular: Negative for chest pain, palpitations and leg swelling. Gastrointestinal: Negative for abdominal pain, constipation, diarrhea, nausea and vomiting. Musculoskeletal: Positive for arthralgias. Negative for back pain and gait problem. Skin: Negative for rash. Neurological: Negative for dizziness, light-headedness and headaches. Psychiatric/Behavioral: Positive for dysphoric mood. Negative for confusion. The patient is nervous/anxious. ALLERGIES Bacitracin, Hydromorphone, Sulfamethoxazole-trimethoprim, Victoza 2-bashir [liraglutide], and Opioids - morphine analogues MEDICATIONS Current Outpatient Medications Medication Instructions blood sugar diagnostic (True Metrix Glucose Test Strip) strip Use to check fasting glucose once daily. buPROPion XL (WELLBUTRIN XL) 150 mg, oral, Every morning, Do not crush, chew, or split. escitalopram (LEXAPRO) 20 mg, oral, Daily ferrous sulfate, 325 mg ferrous sulfate, tablet 1 tablet, oral, 2 times daily (morning and late afternoon) hydroCHLOROthiazide (HYDRODIURIL) 25 mg, oral, Daily hydroxychloroquine (PLAQUENIL) 200 mg, oral, 2 times daily hydrOXYzine HCL (ATARAX) 25 mg, oral, 2 times daily PRN lancets misc Use to check fasting glucose once daily. lancing device (TRUEdraw Lancing Device) misc Use to check fasting glucose once daily. lisinopril 40 mg, oral, Daily metFORMIN (GLUCOPHAGE) 1,000 mg, oral, 2 times daily (morning and late afternoon) metoprolol succinate XL (TOPROL-XL) 50 mg, oral, Daily omeprazole (PRILOSEC) 40 mg, oral, Daily rosuvastatin (CRESTOR) 5 mg, oral, Nightly TOBACCO USE Social History Tobacco Use Smoking Status Never Smokeless Tobacco Never SURGICAL HISTORY Past Surgical History: 11/23/2015: SECTION, CLASSIC Comment: Section 04/16/2013: CHOLECYSTECTOMY Comment: Cholecystectomy 08/08/2017: COLONOSCOPY Comment: Complete Colonoscopy 04/16/2013: PANCREATECTOMY Comment: Pancreatectomy 04/16/2013: SPLENECTOMY, TOTAL Comment: Splenectomy 02/05/2020: TOTAL ABDOMINAL HYSTERECTOMY W/ BILATERAL SALPINGOOPHORECTOMY Comment: Total hysterectomy with removal of both tubes and ovaries 04/16/2013: VENTRAL HERNIA REPAIR Comment: Ventral Hernia Repair 02/18/2019: VENTRAL HERNIA REPAIR Comment: Ventral hernia repair OBJECTIVE BP (!) 143/99 Pulse 74 Temp 36.2 C (97.2 F) Ht 1.575 m (5' 2") Wt 91.4 kg (201 lb 8 oz) SpO2 98% BMI 36.85 kg/m BMI: Estimated body mass index is 36.85 kg/m as calculated from the following: Height as of this encounter: 1.575 m (5' 2"). Weight as of this encounter: 91.4 kg (201 lb 8 oz). BP Readings from Last 3 Encounters: 03/20/24 (!) 143/99 11/27/23 (!) 152/111 11/01/23 (!) 128/98 Wt Readings from Last 3 Encounters: 03/20/24 91.4 kg (201 lb 8 oz) 11/27/23 90.8 kg (200 lb 3.2 oz) 11/01/23 90.9 kg (200 lb 8 oz) PHYSICAL EXAM Physical Exam Constitutional: Appearance: Normal appearance. HENT: Head: Normocephalic and atraumatic. Cardiovascular: Rate and Rhythm: Normal rate and regular rhythm. Heart sounds: No murmur heard. Pulmonary: Effort: Pulmonary effort is normal. No respiratory distress. Breath sounds: Normal breath sounds. No wheezing. Abdominal: General: There is no distension. Palpations: Abdomen is soft. Tenderness: There is no abdominal tenderness. Musculoskeletal: Right lower leg: No edema. Left lower leg: No edema. Neurological: General: No focal deficit present. Mental Status: She is alert and oriented to person, place, and time. Mental status is at baseline. Psychiatric: Mood and Affect: Mood normal. Behavior: Behavior normal. Thought Content: Thought content normal. Judgment: Judgment normal. ASSESSMENT AND PLAN Assessment/Plan Problem List Items Addressed This Visit Benign essential hypertension Relevant Medications hydroCHLOROthiazide (HYDRODiuril) 25 mg tablet Other Relevant Orders Comprehensive Metabolic Panel CBC and Auto Differential DM2 (diabetes mellitus, type 2) (Multi) Relevant Orders Hemoglobin A1c Mixed hyperlipidemia - Primary Relevant Orders Lipid Panel Anxiety Situational depression Relevant Medications buPROPion XL (Wellbutrin XL) 150 mg 24 hr tablet Hypertension - not at goal. Continue current meds, add hydrochlorothiazide. Mixed hyperlipidemia - continue statin. Routine fasting labs - CBC, CMP, FLP. DM2 - check A1c. Continue current medication - on HEYDI inhibitor and statin. Depression with anxiety - had been doing well on Lexapro until earlier this year. Unable to get appointment through behavioral medicine. Will add low dose bupropion. I encouraged her to still try to get appointment through psychiatry. Reminded her to schedule mammogram. Flu shot today. Follow-up 2-3 months. documented in this encounter [facility] Work Phone: 11-27-2023 History of Present illness Narrative Chief Complaint Earache (Left ear pain X-started yesterday morning. Pt states her ear is sore-feels like there is "water" in it-just aches). History Of Present Illness China Ortiz is a 53 y.o. female presents today for follow up of Earache (Left ear pain X-started yesterday morning. Pt states her ear is sore-feels like there is "water" in it-just aches). Left ear pain started 1 day ago. Rates pain 6/10. Feels like there is water in ear. Hearing is decreased. Does not get frequent ear infections. No ear discharge. Denies congestion Does have a cough- states had a viral infection 1.5 weeks ago. Denies sore throat, fevers, chills, n/v. Does complain of dizziness. Denies falls and injuries. Denies prior ear surgeries. Review of Systems Review of Systems Constitutional: Negative for activity change, appetite change, chills, fatigue and fever. HENT: Positive for ear pain and hearing loss (decreased hearin in L ear). Negative for congestion, ear discharge, facial swelling, mouth sores, nosebleeds, postnasal drip, rhinorrhea, sinus pressure, sinus pain, sneezing and sore throat. Respiratory: Positive for cough (dry). Gastrointestinal: Positive for diarrhea (loose stools at baseline). Negative for constipation, nausea, rectal pain and vomiting. Neurological: Positive for dizziness and headaches. Psychiatric/Behavioral: Negative for agitation. The patient is not nervous/anxious. 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 Surgical History She has a past surgical history that includes Pancreatectomy (04/16/2013); Splenectomy, total (04/16/2013); Cholecystectomy (04/16/2013); Ventral hernia repair (04/16/2013); Total abdominal hysterectomy w/ bilateral salpingoophorectomy (02/05/2020); Ventral hernia repair (02/18/2019); Colonoscopy (08/08/2017); and section, classic (11/23/2015). Family History Family History Problem Relation Name Age of Onset Coronary artery disease Mother COPD Father Other (colonic diverticulitis) Father Prostate cancer Father Hemochromatosis Sister Hypertension Sibling Diabetes Other Aunt Kidney cancer Other Aunt Sjogren's syndrome Other Aunt Social History She reports that she has never smoked. She has never used smokeless tobacco. She reports that she does not currently use alcohol. She reports that she does not use drugs. DEPRESSION SCREEN Over the past 2 weeks, how often have you been bothered by any of the following problems? Little interest or pleasure in doing things: Not at all Feeling down, depressed, or hopeless: Not at all Allergies Bacitracin, Hydromorphone, Sulfamethoxazole-trimethoprim, Victoza 2-bashir [liraglutide], and Opioids - morphine analogues Medications Current Outpatient Medications Medication Instructions blood sugar diagnostic (Accu-Chek Caitlyn Plus test strp) strip Use to check fasting glucose once daily. escitalopram (LEXAPRO) 20 mg, oral, Daily ferrous sulfate, 325 mg ferrous sulfate, tablet 1 tablet, oral, 2 times daily (morning and late afternoon) hydroxychloroquine (PLAQUENIL) 200 mg, oral, 2 times daily hydrOXYzine HCL (ATARAX) 25 mg, oral, 2 times daily PRN lancets misc Use to check fasting glucose once daily. lisinopril 40 mg, oral, Daily metFORMIN (GLUCOPHAGE) 500 mg, oral, 2 times daily (morning and late afternoon) metoprolol succinate XL (TOPROL-XL) 50 mg, oral, Daily omeprazole (PRILOSEC) 40 mg, oral, Daily rosuvastatin (CRESTOR) 5 mg, oral, Nightly Objective BP (!) 152/111 (BP Location: Left arm, Patient Position: Sitting, BP Cuff Size: Adult) Pulse 81 Temp 36.2 C (97.2 F) (Temporal) Ht 1.575 m (5' 2") Wt 90.8 kg (200 lb 3.2 oz) SpO2 95% BMI 36.62 kg/m BMI: Estimated body mass index is 36.62 kg/m as calculated from the following: Height as of this encounter: 1.575 m (5' 2"). Weight as of this encounter: 90.8 kg (200 lb 3.2 oz). Physical Exam Physical Exam Constitutional: Appearance: Normal appearance. HENT: Head: Normocephalic and atraumatic. Right Ear: Tympanic membrane normal. Left Ear: Decreased hearing noted. Tenderness present. No laceration, drainage or swelling. A middle ear effusion is present. There is no impacted cerumen. No foreign body. No PE tube. No hemotympanum. Tympanic membrane is injected. Tympanic membrane is not perforated. Cardiovascular: Rate and Rhythm: Normal rate and regular rhythm. Heart sounds: No murmur heard. Pulmonary: Effort: Pulmonary effort is normal. No respiratory distress. Breath sounds: Normal breath sounds. No wheezing. Abdominal: General: There is no distension. Palpations: Abdomen is soft. Tenderness: There is no abdominal tenderness. Musculoskeletal: Right lower leg: No edema. Left lower leg: No edema. Neurological: General: No focal deficit present. Mental Status: She is alert and oriented to person, place, and time. Mental status is at baseline. Psychiatric: Mood and Affect: Mood normal. Behavior: Behavior normal. Thought Content: Thought content normal. Judgment: Judgment normal. Assessment and Plan Assessment/Plan Problem List Items Addressed This Visit None Visit Diagnoses Codes Acute otitis media, unspecified otitis media type - Primary H66.90 Relevant Medications amoxicillin-pot clavulanate (Augmentin) 875-125 mg tablet documented in this encounter [facility] Work Phone: 11-15-2023 Hospital Discharge instructions Patient Education 11/14/2023 23:21:01 Abdominal Pain Abdominal Pain Abdominal pain is pain in the stomach or belly area. Everyone has this pain from time to time. In many cases it goes away on its own. But abdominal pain can sometimes be due to a serious problem, such as appendicitis. So it s important to know when to get help. Causes of abdominal pain There are many possible causes of abdominal pain. Common causes in adults include: Constipation, diarrhea, or gas Stomach acid flowing back up into the esophagus (acid reflux or heartburn) Severe acid reflux, called GERD (gastroesophageal reflux disease) A sore in the lining of the stomach or small intestine (peptic ulcer) Inflammation of the gallbladder, liver, or pancreas Gallstones or kidney stones Appendicitis Intestinal blockage An internal organ pushing through a muscle or other tissue (hernia) Urinary tract infections In women, menstrual cramps, fibroids, ovarian cysts, pelvic inflammatory disease, or endometriosis Inflammation or infection of the intestines, including Crohn's disease and ulcerative colitis Irritable bowel syndrome Diagnosing the cause of abdominal pain Your healthcare provider will give you a physical exam help find the cause of your pain. If needed, you will have tests. Belly pain has many possible causes. So it can be hard to find the reason for your pain. Giving details about your pain can help. Tell your provider where and when you feel the pain, and what makes it better or worse. Also let your provider know if you have other symptoms such as: Fever Tiredness Upset stomach (nausea) Vomiting Changes in bathroom habits Blood in the stool or black, tarry stool Weight loss that you can't explain (involuntary weight loss?) Also report any family history of stomach or intestinal problems, or cancers. Tell your provider about all your alcohol use and drug use. Tell your provider about all medicines you use, including herbs, vitamins, and supplements. Treating abdominal pain Some causes of pain need emergency medical treatment right away. These include appendicitis or a bowel blockage. Other problems can be treated with rest, fluids, or medicines. Your healthcare provider can give you specific instructions for treatment or self-care based on what is causing your pain. If you have vomiting or diarrhea, sip water or other clear fluids. When you are ready to eat solid foods again, start with small amounts of [id number], low-fat foods. These include apple sauce, toast, or crackers. When to get medical care Call 911 or go to the hospital right away if you: Can t pass stool and are vomiting Are vomiting blood or have bloody diarrhea or black, tarry diarrhea Have chest, neck, or shoulder pain Feel like you might pass out Have pain in your shoulder blades with nausea Have sudden, severe belly pain Have new, severe pain unlike any you have felt before Have a belly that is rigid, hard, and hurts to touch Call your healthcare provider if you have: Pain for more than 5 days Bloating for more than 2 days Diarrhea for more than 5 days A fever of 100.4 F (38 C) or higher, or as directed by your healthcare provider Pain that gets worse Weight loss for no reason Continued lack of appetite Blood in your stool How to prevent abdominal pain Here are some tips to help prevent abdominal pain: Eat smaller amounts of food at each meal. Don't eat greasy, fried, or other high-fat foods. Don't eat foods that give you gas. Exercise regularly. Drink plenty of fluids. To help prevent GERD symptoms: Quit smoking. Reduce alcohol and foods that increase stomach acid. Don't use aspirin or ajlz-xcg-hllcgpu pain and fever medicines, if possible. This includes nonsteroidal anti-inflammatory drugs (NSAIDs). Lose excess weight. Finish eating at least 2 hours before you go to bed or lie down. Raise the head of your bed. [id number] [employer]. [address] [place] [id number]. All rights reserved. This information is not intended as a substitute for professional medical care. Always follow your healthcare professional's instructions. Follow Up Care 11/14/2023 18:40:52 With:GISELLE BOYKIN MD Address: [address] [place] [address] [address] [place] [address] [phone] When:2-4 days [facility] 11-15-2023 Emergency department Discharge summary Discharge Instructions Thank you for allowing [facility] to assist you with your healthcare needs. The following is important discharge information regarding your hospital visit. Diagnosis from Today's Visit Abdominal pain What to Do Next Instructions from Your Care Team No qualifying data available. Post Acute Orders No qualifying data available. You Need to Schedule the Following Appointments Follow Up with GISELLE BOYKIN MD When:Within 2-4 days Where:[address] [place] [address] [address] [place] [address] [phone] Allergies Artificial sweetners Migraine Dilaudid Medications Please ask your primary doctor or pharmacist before taking any other medication not listed, including over the counter drugs, herbal medications, vitamins and or supplements as they may interact with your home medications. What How Much When Why Instructions Last Dose New acetaminophen-oxyCODONE (Percocet 5 mg-325 mg oral tablet) 1 tab(s) by mouth Every 4 hours as needed for for pain Abdominal pain Duration: 2 Days Printed Prescription New promethazine (promethazine 25 mg oral tablet) 1 tab(s) by mouth Every 4 hours as needed for as needed for nausea/vomiting Printed Prescription Unchanged escitalopram (escitalopram 20 mg oral tablet) 1 tab(s) by mouth Daily at bedtime Unchanged ferrous sulfate (FeroSul 325 mg (65 mg elemental iron) oral tablet) 1 tab(s) by mouth Two (2) times a day Unchanged hydroxychloroquine (hydroxychloroquine 200 mg oral tablet) 1 tab(s) by mouth Two (2) times a day Unchanged hydrOXYzine (hydrOXYzine hydrochloride 25 mg oral tablet) 1 tab(s) by mouth Two (2) times a day as needed for as needed for anxiety Unchanged lisinopril (lisinopril 40 mg oral tablet) 1 tab(s) by mouth Daily at bedtime Unchanged metFORMIN (metFORMIN 500 mg oral tablet (IR)) 1 tab(s) by mouth Two (2) times a day Unchanged metoprolol (Metoprolol Succinate ER 50 mg oral TABLET extended release) 1 tab(s) by mouth Once a day Unchanged omeprazole (omeprazole 40 mg oral delayed release capsule) 1 cap by mouth Daily at bedtime Unchanged rosuvastatin (rosuvastatin 5 mg oral tablet) 1 tab(s) by mouth Daily at bedtime Please take this list to your next doctor s visit. Bring all medications you take, including over the counter medications, herbals and other supplements with you to your doctor s visit. Patients and families are reminded to discard old lists and to update any records with all medication providers or retail pharmacies. Education Materials Abdominal Pain Abdominal pain is pain in the stomach or belly area. Everyone has this pain from time to time. In many cases it goes away on its own. But abdominal pain can sometimes be due to a serious problem, such as appendicitis. So it s important to know when to get help. Causes of abdominal pain There are many possible causes of abdominal pain. Common causes in adults include: Constipation, diarrhea, or gas Stomach acid flowing back up into the esophagus (acid reflux or heartburn) Severe acid reflux, called GERD (gastroesophageal reflux disease) A sore in the lining of the stomach or small intestine (peptic ulcer) Inflammation of the gallbladder, liver, or pancreas Gallstones or kidney stones Appendicitis Intestinal blockage An internal organ pushing through a muscle or other tissue (hernia) Urinary tract infections In women, menstrual cramps, fibroids, ovarian cysts, pelvic inflammatory disease, or endometriosis Inflammation or infection of the intestines, including Crohn's disease and ulcerative colitis Irritable bowel syndrome Diagnosing the cause of abdominal pain Your healthcare provider will give you a physical exam help find the cause of your pain. If needed, you will have tests. Belly pain has many possible causes. So it can be hard to find the reason for your pain. Giving details about your pain can help. Tell your provider where and when you feel the pain, and what makes it better or worse. Also let your provider know if you have other symptoms such as: Fever Tiredness Upset stomach (nausea) Vomiting Changes in bathroom habits Blood in the stool or black, tarry stool Weight loss that you can't explain (involuntary weight loss?) Also report any family history of stomach or intestinal problems, or cancers. Tell your provider about all your alcohol use and drug use. Tell your provider about all medicines you use, including herbs, vitamins, and supplements. Treating abdominal pain Some causes of pain need emergency medical treatment right away. These include appendicitis or a bowel blockage. Other problems can be treated with rest, fluids, or medicines. Your healthcare provider can give you specific instructions for treatment or self-care based on what is causing your pain. If you have vomiting or diarrhea, sip water or other clear fluids. When you are ready to eat solid foods again, start with small amounts of [id number]-[id number], low-fat foods. These include apple sauce, toast, or crackers. When to get medical care Call 911 or go to the hospital right away if you: Can t pass stool and are vomiting Are vomiting blood or have bloody diarrhea or black, tarry diarrhea Have chest, neck, or shoulder pain Feel like you might pass out Have pain in your shoulder blades with nausea Have sudden, severe belly pain Have new, severe pain unlike any you have felt before Have a belly that is rigid, hard, and hurts to touch Call your healthcare provider if you have: Pain for more than 5 days Bloating for more than 2 days Diarrhea for more than 5 days A fever of 100.4 F (38 C) or higher, or as directed by your healthcare provider Pain that gets worse Weight loss for no reason Continued lack of appetite Blood in your stool How to prevent abdominal pain Here are some tips to help prevent abdominal pain: Eat smaller amounts of food at each meal. Don't eat greasy, fried, or other high-fat foods. Don't eat foods that give you gas. Exercise regularly. Drink plenty of fluids. To help prevent GERD symptoms: Quit smoking. Reduce alcohol and foods that increase stomach acid. Don't use aspirin or ekdx-lbi-cpqklnw pain and fever medicines, if possible. This includes nonsteroidal anti-inflammatory drugs (NSAIDs). Lose excess weight. Finish eating at least 2 hours before you go to bed or lie down. Raise the head of your bed. 4950-5921 [employer]. [address] [place] [id number]. All rights reserved. This information is not intended as a substitute for professional medical care. Always follow your healthcare professional's instructions. Additional Information VACCINATE! IT SAVES LIVES! Members of the community who have not yet received the COVID-19 vaccine and would like to receive it can visit one of [facility] vaccine clinics. There are many vaccine clinic locations within the [facility]. For locations and available times, please visit www.[email or web address].[place].g [email or web address] It is important to note that some COVID mobile vaccine clinics are held outdoors and may be canceled in rainy or stormy conditions. To learn more about pediatric vaccinations (ages 5-11), we invite you to visit the [facility] webpage. https://www.[employer].org/pa ges/3471-Hotce-Fyzfwwrvuig-Freque tkse-Nonkt-Jaxkcprbr.html To learn more about the COVID-19 vaccine, we invite you to visit the CDC website for a list of frequently asked questions. https://www.cdc.gov/coronavirus/2 019-ncov/vaccines/faq.html [facility] Patient Portal Access Instructions: Stay connected with your healthcare team and access your personal medical information anytime with the [facility] Patient Portal. If you would like a full copy of your medical records please contact the [facility] Medical Records Department Sunday through Sunday between 8a.m. and 4:30p.m. Please follow the directions below to access the portal: 1.Access the email account you provided upon registration to the [facility].2.Look for an invitation email from [facility].3.Open the email and access the invitation link: Accept Invitation to [facility].Fill in the required locke to create your account. Sign into www.[employer] with your username and password that you created in the above steps to stay up to date. You can then view a summary of results, a summary of your visits, and the ability to download your summaries to your computer or send the information securely to a physician. Remember that your healthcare information is confidential, so carefully consider who you will allow to register on the [facility] Portal for access to your information. You can also access the [facility] Patient Portal on the mPortico rosi. Simply click on "Health Records" under "Health Data" and then click on the [facility] logo. HOW TO SAFELY DISPOSE OF PRESCRIPTION MEDICATIONS Please use one of the following methods to safely dispose of your unused medications. 1.Use a drug disposal kit: the drug disposal pouch allows you to safely discard your old and unused drugs. Ask your nurse to give you one when you are discharged.2.Visit a local take-back location: Many local pharmacies and police departments have programs that collect old and unwanted prescription drugs. Call your local pharmacy or go to http://invino.Bee Resilient/9A6La4r to find one close to you.3.Make use of household items: Use cat litter or old coffee grounds to dispose medications if other options are not available. Mix your drugs with these household products, seal them in an airtight container and throw it into the garbage. Call [facility]: [phone] to be sure your drugs can be disposed of in this way. Some medicines may require a different approach.4.Never flush your medications down the toilet. IF YOU HAVE BEEN PRESCRIBED AN OPIOIDS FOR PAIN If you have been prescribed an opioid (such as hydrocodone, oxycodone or morphine), it is critical to understand the possible side effects and risks of opioid pain medications. Even when taken as directed, opioids can have several side effects including: Tolerance, meaning you might need to take more of a medication for the same pain relief. Nausea, vomiting and/or constipation. Sleepiness, dizziness, dry mouth, confusion, depression or itching. Physical dependence, meaning you have withdrawal symptoms when a medication is stopped ? this can develop within a few days. KNOW YOUR RESPONSIBILITIES It is important to know exactly how much and how often to take the opioid pain medications you are prescribed. Never take opioids in higher amounts or more often than prescribed. Do not combine opioids with alcohol or other drugs that cause drowsiness, such as benzodiazepines, also known as benzos, including diazepam and alprazolam, muscle relaxants or sleep aids. Never sell or share prescription opioids. This is illegal. Store opioids in a secure place and out of reach of others (including children, family, friends and visitors). The last page(s) of this document has been signed and retained as a CHART COPY Signatures Patient Education Materials Abdominal Pain Medication Leaflets My discharge plan and instructions have been reviewed and explained to me and IDIANA CRYSTAL M understand my current condition and have read and understand these discharge instructions. I have received a written copy of the plan/instructions. If I have questions, I am aware that I should contact my doctor. 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: Date/Time: Relationship to Patient: ____ Witness Name/Signature: Date/Time: [facility] 11-14-2023 Note ORIGINAL EXAMINATION: CT OF THE ABDOMEN AND PELVIS WITH CONTRAST11/14/2023 9:32 pm TECHNIQUE: CT of the abdomen and pelvis was performed with the administration of intravenous contrast. Multiplanar reformatted images are provided for review. Automated exposure control, iterative reconstruction, and/or weight based adjustment of the mA/kV was utilized to reduce the radiation dose to as low as reasonably achievable. COMPARISON: CT abdomen pelvis 04/18/2022 HISTORY: ORDERING SYSTEM PROVIDED HISTORY: Reason for Exam: LUQ pain since last night, nausea, diarrhea, hx gaby pancreas tail and spleen removed hyster hernia repair x 4 pain FINDINGS: No acute osseous abnormality. Mild degenerative changes of the spine. Small sclerotic lesions in the right femoral neck and inferior pubic ramus appears stable from prior and may represent bone islands. Bilateral dependent atelectasis. No pleural or pericardial effusion. The heart is normal in size. Diffusely hypodense liver, likely representing hepatic steatosis. Multiple scattered hypodense lesions in the liver measure up to 1.8 cm in the inferior right hepatic lobe and do not appear significantly changed from prior. Minimal residual splenic tissue is visualized. Postsurgical changes of the pancreas with no acute abnormality of the residual pancreatic tissue. Cholecystectomy clips. The kidneys enhance symmetrically. Subcentimeter hypodense lesions are scattered throughout the kidneys bilaterally, too small to characterize, however may represent small renal cysts. These appear grossly similar to prior. No evidence of hydronephrosis or urolithiasis. The bladder is unremarkable. No adnexal masses. Pelvic phleboliths. The stomach is under distended, limiting evaluation. The small bowel is unremarkable. Minimal scattered colonic diverticulosis with no evidence of diverticulitis. Scattered areas of intramural fat in the colonic wall may represent sequela of prior insult. The appendix is not definitively identified, however no pericecal inflammation is seen. Nonaneurysmal aorta. No pathologically enlarged lymph nodes are identified. No free intraperitoneal air or fluid. Postsurgical changes of the anterior abdominal wall. Small fat containing mid abdomen hernia is visualized. Additional multiple small fat containing ventral wall hernias. IMPRESSION: No acute inflammatory abnormality in the abdomen or pelvis. Additional chronic and incidental findings as above. I have personally reviewed the images of this examination and agree with the resident's findings and interpretation. Interpreted by: Bao Tierney Preliminary Report By: Marie Giron Electronically signed By Bao Tierney Dictated Date: 11/14/2023 9:34:09 PM Prelim Date: 11/14/2023 9:48:06 PM Sign Date: 11/14/2023 9:52:35 PM Ordering Provider: [facility] 10-02-2023 Hospital Discharge instructions Patient Education 10/02/2023 17:33:03 Nonspecific Chest Pain, Adult Nonspecific Chest Pain, Adult Chest pain can be caused by many different conditions. It can be caused by a condition that is life-threatening and requires treatment right away. It can also be caused by something that is not life-threatening. If you have chest pain, it can be hard to know the difference, so it is important to get help right away to make sure that you do not have a serious condition. Some life-threatening causes of chest pain include: Heart attack. A tear in the body's main blood vessel (aortic dissection). Inflammation around your heart (pericarditis). A problem in the lungs, such as a blood clot (pulmonary embolism) or a collapsed lung (pneumothorax). Some non life-threatening causes of chest pain include: Heartburn. Anxiety or stress. Damage to the bones, muscles, and cartilage that make up your chest wall. Pneumonia or bronchitis. Shingles infection (varicella-zoster virus). Chest pain can feel like: Pain or discomfort on the surface of your chest or deep in your chest. Crushing, pressure, aching, or squeezing pain. Burning or tingling. Dull or sharp pain that is worse when you move, cough, or take a deep breath. Pain or discomfort that is also felt in your back, neck, jaw, shoulder, or arm, or pain that spreads to any of these areas. Your chest pain may come and go. It may also be constant. Your health care provider will do lab tests and other studies to find the cause of your pain. Treatment will depend on the cause of your chest pain. Follow these instructions at home: Medicines Take hkfr-sct-hiqnnmy and prescription medicines only as told by your health care provider. If you were prescribed an antibiotic, take it as told by your health care provider. Do not stop taking the antibiotic even if you start to feel better. Lifestyle Rest as directed by your health care provider. Do not use any products that contain nicotine or tobacco, such as cigarettes and e-cigarettes. If you need help quitting, ask your health care provider. Do not drink alcohol. Make healthy lifestyle choices as recommended. These may include: ?Getting regular exercise. Ask your health care provider to suggest some activities that are safe for you. ?Eating a heart-healthy diet. This includes plenty of fresh fruits and vegetables, whole grains, low-fat (lean) protein, and low-fat dairy products. A dietitian can help you find healthy eating options. ?Maintaining a healthy weight. ?Managing any other health conditions you have, such as high blood pressure (hypertension) or diabetes. ?Reducing stress, such as with yoga or relaxation techniques. General instructions Pay attention to any changes in your symptoms. Tell your health care provider about them or any new symptoms. Avoid any activities that cause chest pain. Keep all follow-up visits as told by your health care provider. This is important. This includes visits for any further testing if your chest pain does not go away. Contact a health care provider if: Your chest pain does not go away. You feel depressed. You have a fever. Get help right away if: Your chest pain gets worse. You have a cough that gets worse, or you cough up blood. You have severe pain in your abdomen. You faint. You have sudden, unexplained chest discomfort. You have sudden, unexplained discomfort in your arms, back, neck, or jaw. You have shortness of breath at any time. You suddenly start to sweat, or your skin gets clammy. You feel nausea or you vomit. You suddenly feel lightheaded or dizzy. You have severe weakness, or unexplained weakness or fatigue. Your heart begins to beat quickly, or it feels like it is skipping beats. These symptoms may represent a serious problem that is an emergency. Do not wait to see if the symptoms will go away. Get medical help right away. Call your local emergency services (911 in the [place] Do not drive yourself to the hospital. Summary Chest pain can be caused by a condition that is serious and requires urgent treatment. It may also be caused by something that is not life-threatening. If you have chest pain, it is very important to see your health care provider. Your health care provider may do lab tests and other studies to find the cause of your pain. Follow your health care provider's instructions on taking medicines, making lifestyle changes, and getting emergency treatment if symptoms become worse. Keep all follow-up visits as told by your health care provider. This includes visits for any further testing if your chest pain does not go away. This information is not intended to replace advice given to you by your health care provider. Make sure you discuss any questions you have with your health care provider. Document Released: 12/27/2005 Document Revised: 09/19/2018 Document Reviewed: 09/19/2018 [employer] Patient Education 2020 [employer]. Follow Up Care 09/30/2023 14:05:24 With:VICKY HERNANDEZ MD Address: [address] [facility] [address] [facility] [place] [address]- When:5 to 7 days Comments:Follow up with general cardiology within 1 week. With:Follow up with primary care provider Address: When:5 to 7 days Comments:Follow-up with your PCP within 1 week With:PINEDA ROSSI Address: [address] [facility] [address] [place] [address]- When:10/29/2023 13:00:00 With:GISELLE BOYKIN MD Address: [address] [place] [address]- When:1-2 days Comments:Please call the office to schedule a hospital follow-up appointment. [facility] 10-02-2023 Note Discharge Instructions Thank you for allowing [facility] to assist you with your healthcare needs. The following is important discharge information regarding your hospital visit. Your Care Team GISELLE BOYKIN MD What to do next Scheduled Follow-Up Appointments Appointment Type When With Where Contact Information StatusCV OV 10/29/2023 01:00 PM EDT PINEDA ROSSI [facility] Confirmed Follow Up Appointments Follow Up with VICKY HERNANDEZ MD When:Within 5 to 7 days Where:[address] [facility] [address] [place] [address]- Additional Information: Follow up with general cardiology within 1 week. Follow Up with Follow up with primary care provider When:Within 5 to 7 days Additional Information: Follow-up with your PCP within 1 week Follow Up with GISELLE BOYKIN MD When:Within 1-2 days Where:[address] [place] [address]- Additional Information: Please call the office to schedule a hospital follow-up appointment. Follow Up with PINEDA ROSSI When:10/29/2023 01:00 PM EDT Where:[address] [facility] [address] [place] [address]- The Following Activity and Diet Have Been Ordered for You Discharge Activity - Ordered -- NO activity restrictions, 10/02/23 14:32:00 EDT Discharge Diet - Ordered -- No changes were made to your diet during your hospital stay. Please resume your pre hospitalization diet on discharge., 10/02/23 14:32:00 EDT The Following Equipment Has Been Ordered for You No qualifying data available. The Following Treatments Have Been Ordered for You Discharge Labs No qualifying data available. Discharge Radiology No qualifying data available. Other Therapies No qualifying data available. Post Acute Orders No qualifying data available. Someone Will Contact You Regarding These Home Health Referrals No home referrals have been ordered for you. No one will call you. Allergies Artificial sweetners Migraine Dilaudid Medications Please ask your primary doctor or pharmacist before taking any other medication not listed, including over the counter drugs, herbal medications, vitamins and or supplements as they may interact with your home medications. What How Much When Instructions Last Dose Unchanged escitalopram (escitalopram 20 mg oral tablet) 1 tab(s) by mouth Daily at bedtime Unchanged ferrous sulfate (FeroSul 325 mg (65 mg elemental iron) oral tablet) 1 tab(s) by mouth Two (2) times a day Unchanged hydroxychloroquine (hydroxychloroquine 200 mg oral tablet) 1 tab(s) by mouth Two (2) times a day Unchanged hydrOXYzine (hydrOXYzine hydrochloride 25 mg oral tablet) 1 tab(s) by mouth Two (2) times a day as needed for as needed for anxiety Unchanged lisinopril (lisinopril 40 mg oral tablet) 1 tab(s) by mouth Daily at bedtime Unchanged metFORMIN (metFORMIN 500 mg oral tablet (IR)) 1 tab(s) by mouth Two (2) times a day Unchanged metoprolol (Metoprolol Succinate ER 50 mg oral TABLET extended release) 1 tab(s) by mouth Once a day Unchanged omeprazole (omeprazole 40 mg oral delayed release capsule) 1 cap by mouth Daily at bedtime Unchanged rosuvastatin (rosuvastatin 5 mg oral tablet) 1 tab(s) by mouth Daily at bedtime Please take this list to your next doctor s visit. Bring all medications you take, including over the counter medications, herbals and other supplements with you to your doctor s visit. Patients and families are reminded to discard old lists and to update any records with all medication providers or retail pharmacies. Education Materials Nonspecific Chest Pain, Adult Chest pain can be caused by many different conditions. It can be caused by a condition that is life-threatening and requires treatment right away. It can also be caused by something that is not life-threatening. If you have chest pain, it can be hard to know the difference, so it is important to get help right away to make sure that you do not have a serious condition. Some life-threatening causes of chest pain include: Heart attack. A tear in the body's main blood vessel (aortic dissection). Inflammation around your heart (pericarditis). A problem in the lungs, such as a blood clot (pulmonary embolism) or a collapsed lung (pneumothorax). Some non life-threatening causes of chest pain include: Heartburn. Anxiety or stress. Damage to the bones, muscles, and cartilage that make up your chest wall. Pneumonia or bronchitis. Shingles infection (varicella-zoster virus). Chest pain can feel like: Pain or discomfort on the surface of your chest or deep in your chest. Crushing, pressure, aching, or squeezing pain. Burning or tingling. Dull or sharp pain that is worse when you move, cough, or take a deep breath. Pain or discomfort that is also felt in your back, neck, jaw, shoulder, or arm, or pain that spreads to any of these areas. Your chest pain may come and go. It may also be constant. Your health care provider will do lab tests and other studies to find the cause of your pain. Treatment will depend on the cause of your chest pain. Follow these instructions at home: Medicines Take htiw-dvp-irhtrau and prescription medicines only as told by your health care provider. If you were prescribed an antibiotic, take it as told by your health care provider. Do not stop taking the antibiotic even if you start to feel better. Lifestyle Rest as directed by your health care provider. Do not use any products that contain nicotine or tobacco, such as cigarettes and e-cigarettes. If you need help quitting, ask your health care provider. Do not drink alcohol. Make healthy lifestyle choices as recommended. These may include: ? Getting regular exercise. Ask your health care provider to suggest some activities that are safe for you. ? Eating a heart-healthy diet. This includes plenty of fresh fruits and vegetables, whole grains, low-fat (lean) protein, and low-fat dairy products. A dietitian can help you find healthy eating options. ? Maintaining a healthy weight. ? Managing any other health conditions you have, such as high blood pressure (hypertension) or diabetes. ? Reducing stress, such as with yoga or relaxation techniques. General instructions Pay attention to any changes in your symptoms. Tell your health care provider about them or any new symptoms. Avoid any activities that cause chest pain. Keep all follow-up visits as told by your health care provider. This is important. This includes visits for any further testing if your chest pain does not go away. Contact a health care provider if: Your chest pain does not go away. You feel depressed. You have a fever. Get help right away if: Your chest pain gets worse. You have a cough that gets worse, or you cough up blood. You have severe pain in your abdomen. You faint. You have sudden, unexplained chest discomfort. You have sudden, unexplained discomfort in your arms, back, neck, or jaw. You have shortness of breath at any time. You suddenly start to sweat, or your skin gets clammy. You feel nausea or you vomit. You suddenly feel lightheaded or dizzy. You have severe weakness, or unexplained weakness or fatigue. Your heart begins to beat quickly, or it feels like it is skipping beats. These symptoms may represent a serious problem that is an emergency. Do not wait to see if the symptoms will go away. Get medical help right away. Call your local emergency services (911 in the [place] Do not drive yourself to the hospital. Summary Chest pain can be caused by a condition that is serious and requires urgent treatment. It may also be caused by something that is not life-threatening. If you have chest pain, it is very important to see your health care provider. Your health care provider may do lab tests and other studies to find the cause of your pain. Follow your health care provider's instructions on taking medicines, making lifestyle changes, and getting emergency treatment if symptoms become worse. Keep all follow-up visits as told by your health care provider. This includes visits for any further testing if your chest pain does not go away. This information is not intended to replace advice given to you by your health care provider. Make sure you discuss any questions you have with your health care provider. Document Released: 12/27/2005 Document Revised: 09/19/2018 Document Reviewed: 09/19/2018 [employer] Patient Education 2020 [employer]. Additional Information VACCINATE! IT SAVES LIVES! Members of the community who have not yet received the COVID-19 vaccine and would like to receive it can visit one of [facility] vaccine clinics. There are many vaccine clinic locations within the [facility]. For locations and available times, please visit [email or web address]/. It is important to note that some COVID mobile vaccine clinics are held outdoors and may be canceled in rainy or stormy conditions. To learn more about pediatric vaccinations (ages 5-11), we invite you to visit the [facility] webpage. https://www.[employer].org/pa ges/3353-Bnqsd-Zlpcqhoheqh-Freque whut-Cssrw-Qmrleihlj.html To learn more about the COVID-19 vaccine, we invite you to visit the CDC website for a list of frequently asked questions.https://www.cdc.gov/cor onavirus/2019-ncov/vaccines/faq.h tml [facility] Patient Portal Access Instructions: Stay connected with your healthcare team and access your personal medical information anytime with the [facility] Patient Portal. Please follow the directions below to create your [facility] account: 1.Access the email account you provided upon registration to the hospital/physician office.2.Look for an invitation email from [facility].3.Open the email and access the invitation link: Accept Invitation to [facility].4.Fill in the required locke to create your account. To access your account, visit [email or web address]. Click the blue button labeled "Access Patient Portal" and then log in with the username and password that you created in the steps above. You will be able to view your test results, lab results, a summary of your visits, upcoming appointments and more. There is also a convenient messaging option where you can send secure messages to your provider. In addition, you will have the ability to download any documents or summaries to your computer and/or send the information securely to a physician. Remember that your healthcare information is confidential, so carefully consider who you will allow to register on the [facility] Portal for access to your information. You can also access the [facility] Portal on the [employer] rosi. Simply click on "Patient Portal" and then log into your account. If you would like to receive a full copy of your medical records, please contact the [facility] Medical Records Department by calling [phone], Sunday through Sunday between 8 a.m. and 4:30 p.m. HOW TO SAFELY DISPOSE OF PRESCRIPTION MEDICATIONS Please use one of the following methods to safely dispose of your unused medications. 1.Use a drug disposal kit: the drug disposal pouch allows you to safely discard your old and unused drugs. Ask your nurse to give you one when you are discharged.2.Visit a local take-back location: Many local pharmacies and police departments have programs that collect old and unwanted prescription drugs. Call your local pharmacy or go to http://invino.Bee Resilient/8G8Ay3n to find one close to you.3.Make use of household items: Use cat litter or old coffee grounds to dispose medications if other options are not available. Mix your drugs with these household products, seal them in an airtight container and throw it into the garbage. Call [facility]: [phone] to be sure your drugs can be disposed of in this way. Some medicines may require a different approach.4.Never flush your medications down the toilet. IF YOU HAVE BEEN PRESCRIBED AN OPIOID FOR PAIN If you have been prescribed an opioid (such as hydrocodone, oxycodone or morphine), it is critical to understand the possible side effects and risks of opioid pain medications. Even when taken as directed, opioids can have several side effects including: Tolerance, meaning you might need to take more of a medication for the same pain relief. Nausea, vomiting and/or constipation. Sleepiness, dizziness, dry mouth, confusion, depression or itching. Physical dependence, meaning you have withdrawal symptoms when a medication is stopped, can develop within a few days. KNOW YOUR RESPONSIBILITIES It is important to know exactly how much and how often to take the opioid pain medications you are prescribed. Never take opioids in higher amounts or more often than prescribed. Do not combine opioids with alcohol or other drugs that cause drowsiness, such as benzodiazepines, also known as benzos, including diazepam and alprazolam, muscle relaxants or sleep aids. Never sell or share prescription opioids. This is illegal. Store opioids in a secure place and out of reach of others (including children, family, friends and visitors). The last page of this document has been signed and retained as a CHART COPY. Signatures Patient Education Materials Nonspecific Chest Pain, Adult Medication Leaflets My discharge plan and instructions have been reviewed and explained to me and I,FRANCISCONAVARRO CHINA Kayden understand my current condition and have read and understand these discharge instructions. I have received a written copy of the plan/instructions. If I have questions, I am aware that I should contact my doctor. 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: Date/Time: Relationship to Patient: ____ Witness Name/Signature: Date/Time: [facility] 10-02-2023 Discharge summary Date of Service 10/02/23 Discharge Diagnosis Arm pain-intermittent ([id number] - [facility]) Back pain ([id number] - [facility]) Chest pain ([id number] - [facility]) Nausea ([id number] - [facility]) Hospital Course Chest pain, ACS rule out Unstable angina Hypertension Anemia History of SLE Type 2 diabetes GERD Anxiety Plan Patient is a 53-year-old female who presented with chest pain concerning for cardiac in nature and underwent pharmacological stress test which is pending formal read. Preliminary read is negative for any inducible ischemia with evidence of scaling artifact and apical thinning, EF 60%. Surface echo was not able to completed prior to discharge and this can be done upon follow-up with cardiology outpatient.She is being discharged home with instructions to follow-up with cardiology as well as PCP outpatient. Allergies Artificial sweetners Migraine Dilaudid Procedures stress test Consults Consult to Case Management/Social Service (Case Management/Social Service Consult) (Consult to Case Management) - Ordered -- 09/30/23 17:18:00 EDT, Discharge Planning Imaging Results and Diagnostics XR Chest 1 View Result Date: September 30, 2023 Verified By: RUSTAM SOTO MD CLINICAL STATEMENT: IMPRESSION: No acute radiographic findings. I have personally reviewed the images of this examination and agree with theresident's findings and interpretation. Objective Vitals and Measurements T: 36.7 C (Oral) TMIN: 36.5 C (Oral) TMAX: 36.8 C (Oral) HR: 67 (Apical) RR: 18 BP: 138/89 SpO2: 96% WT: 90.2 kg Weight Dosing Weight: 90.2 kg (10/02/23) Dosing Weight: 91.1 kg (09/30/23) Pending Labs and Studies none Code Status Code Status - Ordered -- 09/30/23 17:18:00 EDT, Full Code, Constant Order Admission Date 09/30/23 Discharge Date 10/02/23 Medications Unchanged escitalopram (escitalopram 20 mg oral tablet)1 tab(s) by mouth daily at bedtime. ferrous sulfate (FeroSul 325 mg (65 mg elemental iron) oral tablet)1 tab(s) by mouth two (2) times a day. hydroxychloroquine (hydroxychloroquine 200 mg oral tablet)1 tab(s) by mouth two (2) times a day. hydrOXYzine (hydrOXYzine hydrochloride 25 mg oral tablet)1 tab(s) by mouth two (2) times a day as needed as needed for anxiety. lisinopril (lisinopril 40 mg oral tablet)1 tab(s) by mouth daily at bedtime. metFORMIN (metFORMIN 500 mg oral tablet (IR))1 tab(s) by mouth two (2) times a day. metoprolol (Metoprolol Succinate ER 50 mg oral TABLET extended release)1 tab(s) by mouth once a day. omeprazole (omeprazole 40 mg oral delayed release capsule)1 cap by mouth daily at bedtime. rosuvastatin (rosuvastatin 5 mg oral tablet)1 tab(s) by mouth daily at bedtime. Follow Up Follow Up with VICKY HERNANDEZ MD When:Within 5 to 7 days Where:[address] [facility] [place] [address] Additional Information: Follow up with general cardiology within 1 week. Follow Up with Follow up with primary care provider When:Within 5 to 7 days Additional Information: Follow-up with your PCP within 1 week Follow Up with GISELLE BOYKIN MD When:Within 1-2 days Where:[address] [place] [address]- Additional Information: Please call the office to schedule a hospital follow-up appointment. Follow Up with PINEDA ROSSI When:10/29/2023 01:00 PM EDT Where:[address] [facility] [place], [place] [id number]- Follow Up Appointments No qualifying data available. Follow Up Labs/Studies Discharge Labs No Follow-up Labs Discharge Studies No Follow-up Studies Discharge Diet No qualifying data available. Discharge Activity No qualifying data available. Condition on Discharge Stable Readmission Risk/Palliative Score No qualifying data available. Discharge Disposition Home Time Spent > 30 min Digitally Signed by BEAU AVILA MD on 10/02/2023 02:31 PM Digitally Signed by VICKY HERNANDEZ MD [facility] 10-02-2023 Note Date of Service 10/02/2023 Procedure: Regadenoson (Lexiscan) chemical stress test Patient underwent a pharmacologic stress test using regadenoson. Total regadenoson dose of 0.4 mg was given as per protocol. The patient had a baseline heart rate of 72 bpm, which peaked at 105 bpm. The patient had a baseline blood pressure of 159/96 mmHg and it changed to 153/96 mmHg after the regadenoson administration. The patient experienced flushing and shortness of breath, which all resolved at the end of the test. The patient's baseline ECG showed normal sinus rhythm with no ischemic ST segment changes. During the stress, there were no ECG changes diagnostic of ischemia. Impression: ECG portion of the pharmacologic stress test is negative for inducible ischemia. The results of the nuclear portion of the stress test will be reported separately. See addendum to this note by the attending physician for additional comments. Digitally Signed by JACKIE JAMIL MD on 10/02/2023 09:50 AM Digitally Signed by ROBBIE LIVINGSTON MD [facility] 10-02-2023 Note ORIGINAL NM MYOCARDIAL SPECT STRESS/REST CLINICAL STATEMENT: chest pain TECHNIQUE: Lexiscan dose: 0.4 mg Radiopharmaceutical (stress): Tc-99m Sestamibi Dose:27 mCi Radiopharmaceutical (rest): Tc-99m Sestamibi Dose:8 mCi SPECT acquisition and processing Reconstruction and reorientation of SPECT images into short axis, vertical and horizontal long axis planes Quantitative LVEF assessment COMPARISON:None REPORT: Overall image quality is acceptable. There is slight patient motion during image acquisition. Low-dose CT scan shows no significant coronary artery or aortic calcification. SPECT perfusion images show an area of apical thinning, otherwise normal homogenous radiotracer uptake activity in all segments of the LV myocardium. SPECT gated images show normal thickening and regional wall motion of all segments of the LV myocardium. LVEF is >70%, LVEDV is 54mL, TID ratio is 1.07. IMPRESSION: 1. No evidence of stress induced myocardial ischemia or prior myocardial infarction 2. LVEF is >70%, normal wall motion 3. No previous studies available for comparison Interpreted By: Jolie Loaiza MD Preliminary Report By: Jackie Jamil Electronically Signed By: Jolie Loaiza MD Dictated Date: 10/02/2023 12:08:32 PM Prelim Date: 10/02/2023 12:11:41 PM Sign Date: 10/02/2023 8:31:57 PM Ordering Provider:[facility] 10-01-2023 History and physical note Date of Service 09/30/2023 Chief Complaint States she has been having chest pain for a week. History of Present Illness 53-year-old female with PMH of hypertension, DM 2, hyperlipidemia, SLE, anxiety and history of migraines presented to ED with chief current chest pain. On encounter, the patient was examined in room 353. She was alone. She stated that she has: --Chest pain for 1 week. Insidious in onset, non-progressive, near multiple episodes throughout the day, waxes and waning in severity, dull aching type, severity at max of 4/10, radiating to the left upper arm and to the back. Today morning the pain lasted for more than 40 minutes that prompted her to come to the ED. Denies shortness of breath, cough, PND, palpitations Denies abdominal pain Denies bowel respiratory disturbances ED course: In ED, the patient was vitally stable. Her initial labs were suggestive of normal CBC, BMP, hepatic panel, negative troponins x 2 and an elevated cholesterol level. Chest x-ray was normal. EKG was NSR. She was given aspirin to 63 mg and Tylenol 650 mg in the ED. Review of Systems General: negative for weight change, fevers/night sweats/chills, fatigue/weakness Skin: negative for skin changes HEENT: negative for headache, visual changes, hearing loss, rhinorrhea/congestion/epistaxis, bleeding gums, hoarseness/sore throat Breasts: negative for skin changes, discharge Cardiac: Chest pain negative for murmurs, palpitations, AREVALO, orthopnea, PND, edema Pulmonary: negative for SOB, wheezing, cough, sputum/hemoptysis, PNA, asthma/bronchitis/COPD GI: negative for N/V, change in appetite, dysphagia, change in BM, stool color, hematemesis/melena/hematochezia, constipation/diarrhea : negative for polydipsia, polyuria, hematuria, dysuria, nocturia MSK: negative for muscle weakness, joint pain/stiffness, redness/swelling Heme: negative for anemia, easy bruising Neurologic: negative for loss of sensation/numbness/tingling, weakness/paralysis Physical Exam Vitals and Measurements T: 36.5 C (Oral) TMIN: 36.4 C (Oral) TMAX: 36.5 C (Oral) HR: 65 (Monitored) RR: 17 BP: 136/70 SpO2: 98% HT: 157.5 cm WT: 91.1 kg BMI: 36.72 Weight Dosing Weight: 91.1 kg (09/30/23) Dosing Weight: 91.2 kg (09/30/23) General: AAOX3, NAD HEENT: Anicteric sclera, MMM Neck: Trachea midline, no JVD appreciated CVS: RRR, normal S1/S2, no murmurs/rubs/gallops Lung: CTAB, no wheezes/rhonchi/rales Abd: Soft, NT/ND Extrem: WWP, no LE edema Skin: Warm, Intact Neuro: AAOX3, spontaneous movement of all extremities Psych: Appropriate mood & affect Lab Results 09/29 14:35 WBC: 11.0 H Hgb: 14.1 Hct: 41.8 Platelet: 433 Neutrophil %: 56.1 Glucose Level: 138 H Sodium Level: 137 Potassium Level: 4.0 BUN: 13.0 Creatinine Lvl (s): 0.78 EKG EC09/30/23: SINUS RHYTHM Electronic Signature: MD MARCY VERONICA MD 09/30/2023 16:24:27 Assessment/Plan 1. Chest pain rule out ACS 2. Unstable angina Patient presented with 1 week history of chest pain that is worsening and today morning episode was severe enough to come to the ED. EKG: NSR Mother had CABG at age 35 years Troponin: Negative x 2 Heart score: 4 Plan START aspirin 81 mg p.o. daily START atorvastatin 40 mg p.o. daily START NTG 0.4 mg sublingual as needed for chest pain FOLLOW ECHO N.p.o. past midnight for possible stress test 2. Hypertension Blood pressure was mildly elevated on admission but now is in appropriate range Plan CONTINUE lisinopril 40 mg p.o. daily CONTINUE metoprolol succinate 50 mg p.o. daily 3. DM2 Fingerstick in acceptable range Plan START sliding scale insulin 4. Hyperlipidemia Plan INCREASE rosuvastatin to 40 mg p.o. daily 5. History of SLE No signs of acute flare Plan CONTINUE hydroxychloroquine 200 mg p.o. twice daily 6. GERD Denies current burning sensation in stomach Plan CONTINUE pantoprazole 40 mg p.o. daily 7. Anxiety Denies current anxiety episode/suicidal ideation Plan CONTINUE escitalopram 20 mg p.o. at bedtime Procedure/Surgical History Hysterectomy Hernia repair Cholecystectomy Stress test treadmill delivery Splenectomy Medications Home Medications (9) Active escitalopram 20 mg oral tablet 20 mg = 1 tab(s), Oral, qHS FeroSul 325 mg (65 mg elemental iron) oral tablet 325 mg = 1 tab(s), Oral, BID hydroxychloroquine 200 mg oral tablet 200 mg = 1 tab(s), Oral, BID hydrOXYzine hydrochloride 25 mg oral tablet 25 mg = 1 tab(s), PRN, Oral, BID lisinopril 40 mg oral tablet 40 mg = 1 tab(s), Oral, qHS metFORMIN 500 mg oral tablet (IR) 500 mg = 1 tab(s), Oral, BID Metoprolol Succinate ER 50 mg oral TABLET extended release 50 mg = 1 tab(s), Oral, qDay omeprazole 40 mg oral delayed release capsule 40 mg = 1 cap(s), Oral, qHS rosuvastatin 5 mg oral tablet 5 mg = 1 tab(s), Oral, qHS Allergies Artificial sweetners Migraine Dilaudid Social History Alcohol Use: Never., 09/30/2023 Home/Environment Living situation: Home/Independent. Domestic Concerns: None., 09/30/2023 Nutrition/Health Caffeine intake amount: 1 pot of tea in A.M.. Appetite Good., 09/30/2023 Sexual Sexually active: No., 09/30/2023 Substance Abuse Use: Never., 09/30/2023 Tobacco Nicotine Use: Never (less than 100 in lifetime)., 09/30/2023 Family History Alcohol abuse: Mother. Cancer: Mother and Sister. Heart attack: Mother. Heart disease: Mother. Hypertension: Mother, Father, Sister and Brother. Prostate cancer: Father. Stroke: Grandparent. Health Status Family Member(s) Immunizations measles/mumps/rubella virus vaccine: 0 unknown unit (09/15/98) meningococcal conjugate vaccine: 0 unknown unit (12/16/15) SARS-CoV-2 mRNA (tozinameran) vaccine: 0.3 unknown unit (04/07/21) SARS-CoV-2 mRNA (tozinameran) vaccine: 0.3 unknown unit (09/08/20) SARS-CoV-2 mRNA (tozinameran) vaccine: 0.3 unknown unit (08/18/20) tetanus/diphth/pertuss (Tdap) adult/adol: 0 unknown unit (12/16/15) Code Status Code Status - Ordered -- 09/30/23 17:18:00 EDT, Full Code, Constant Order Digitally Signed by ROBERT MONCADA MD on 10/01/2023 09:01 AM [facility] 09-30-2023 History and physical note Date of Service 09/30/2023 Chief Complaint States she has been having chest pain for a week. History of Present Illness 53-year-old female with PMH of hypertension, DM 2, hyperlipidemia, SLE, anxiety and history of migraines presented to ED with chief current chest pain. On encounter, the patient was examined in room 353. She was alone. She stated that she has: --Chest pain for 1 week. Insidious in onset, non-progressive, near multiple episodes throughout the day, waxes and waning in severity, dull aching type, severity at max of 4/10, radiating to the left upper arm and to the back. Today morning the pain lasted for more than 40 minutes that prompted her to come to the ED. Denies shortness of breath, cough, PND, palpitations Denies abdominal pain Denies bowel respiratory disturbances ED course: In ED, the patient was vitally stable. Her initial labs were suggestive of normal CBC, BMP, hepatic panel, negative troponins x 2 and an elevated cholesterol level. Chest x-ray was normal. EKG was NSR. She was given aspirin to 63 mg and Tylenol 650 mg in the ED. Review of Systems General: negative for weight change, fevers/night sweats/chills, fatigue/weakness Skin: negative for skin changes HEENT: negative for headache, visual changes, hearing loss, rhinorrhea/congestion/epistaxis, bleeding gums, hoarseness/sore throat Breasts: negative for skin changes, discharge Cardiac: Chest pain negative for murmurs, palpitations, AREVALO, orthopnea, PND, edema Pulmonary: negative for SOB, wheezing, cough, sputum/hemoptysis, PNA, asthma/bronchitis/COPD GI: negative for N/V, change in appetite, dysphagia, change in BM, stool color, hematemesis/melena/hematochezia, constipation/diarrhea : negative for polydipsia, polyuria, hematuria, dysuria, nocturia MSK: negative for muscle weakness, joint pain/stiffness, redness/swelling Heme: negative for anemia, easy bruising Neurologic: negative for loss of sensation/numbness/tingling, weakness/paralysis Physical Exam Vitals and Measurements T: 36.5 C (Oral) TMIN: 36.4 C (Oral) TMAX: 36.5 C (Oral) HR: 65 (Monitored) RR: 17 BP: 136/70 SpO2: 98% HT: 157.5 cm WT: 91.1 kg BMI: 36.72 Weight Dosing Weight: 91.1 kg (09/30/23) Dosing Weight: 91.2 kg (09/30/23) General: AAOX3, NAD HEENT: Anicteric sclera, MMM Neck: Trachea midline, no JVD appreciated CVS: RRR, normal S1/S2, no murmurs/rubs/gallops Lung: CTAB, no wheezes/rhonchi/rales Abd: Soft, NT/ND Extrem: WWP, no LE edema Skin: Warm, Intact Neuro: AAOX3, spontaneous movement of all extremities Psych: Appropriate mood & affect Lab Results 09/29 14:35 WBC: 11.0 H Hgb: 14.1 Hct: 41.8 Platelet: 433 Neutrophil %: 56.1 Glucose Level: 138 H Sodium Level: 137 Potassium Level: 4.0 BUN: 13.0 Creatinine Lvl (s): 0.78 EKG EC09/30/23: SINUS RHYTHM Electronic Signature: MD MARCY VERONICA MD 09/30/2023 16:24:27 Assessment/Plan 1. Chest pain rule out ACS 2. Unstable angina Patient presented with 1 week history of chest pain that is worsening and today morning episode was severe enough to come to the ED. EKG: NSR Mother had CABG at age 35 years Troponin: Negative x 2 Heart score: 4 Plan START aspirin 81 mg p.o. daily START atorvastatin 40 mg p.o. daily START NTG 0.4 mg sublingual as needed for chest pain FOLLOW ECHO N.p.o. past midnight for possible stress test 2. Hypertension Blood pressure was mildly elevated on admission but now is in appropriate range Plan CONTINUE lisinopril 40 mg p.o. daily CONTINUE metoprolol succinate 50 mg p.o. daily 3. DM2 Fingerstick in acceptable range Plan START sliding scale insulin 4. Hyperlipidemia Plan INCREASE rosuvastatin to 40 mg p.o. daily 5. History of SLE No signs of acute flare Plan CONTINUE hydroxychloroquine 200 mg p.o. twice daily 6. GERD Denies current burning sensation in stomach Plan CONTINUE pantoprazole 40 mg p.o. daily 7. Anxiety Denies current anxiety episode/suicidal ideation Plan CONTINUE escitalopram 20 mg p.o. at bedtime Procedure/Surgical History Hysterectomy Hernia repair Cholecystectomy Stress test treadmill delivery Splenectomy Medications Home Medications (9) Active escitalopram 20 mg oral tablet 20 mg = 1 tab(s), Oral, qHS FeroSul 325 mg (65 mg elemental iron) oral tablet 325 mg = 1 tab(s), Oral, BID hydroxychloroquine 200 mg oral tablet 200 mg = 1 tab(s), Oral, BID hydrOXYzine hydrochloride 25 mg oral tablet 25 mg = 1 tab(s), PRN, Oral, BID lisinopril 40 mg oral tablet 40 mg = 1 tab(s), Oral, qHS metFORMIN 500 mg oral tablet (IR) 500 mg = 1 tab(s), Oral, BID Metoprolol Succinate ER 50 mg oral TABLET extended release 50 mg = 1 tab(s), Oral, qDay omeprazole 40 mg oral delayed release capsule 40 mg = 1 cap(s), Oral, qHS rosuvastatin 5 mg oral tablet 5 mg = 1 tab(s), Oral, qHS Allergies Artificial sweetners Migraine Dilaudid Social History Alcohol Use: Never., 09/30/2023 Home/Environment Living situation: Home/Independent. Domestic Concerns: None., 09/30/2023 Nutrition/Health Caffeine intake amount: 1 pot of tea in A.M.. Appetite Good., 09/30/2023 Sexual Sexually active: No., 09/30/2023 Substance Abuse Use: Never., 09/30/2023 Tobacco Nicotine Use: Never (less than 100 in lifetime)., 09/30/2023 Family History Alcohol abuse: Mother. Cancer: Mother and Sister. Heart attack: Mother. Heart disease: Mother. Hypertension: Mother, Father, Sister and Brother. Prostate cancer: Father. Stroke: Grandparent. Health Status Family Member(s) Immunizations measles/mumps/rubella virus vaccine: 0 unknown unit (09/15/98) meningococcal conjugate vaccine: 0 unknown unit (12/16/15) SARS-CoV-2 mRNA (tozinameran) vaccine: 0.3 unknown unit (04/07/21) SARS-CoV-2 mRNA (tozinameran) vaccine: 0.3 unknown unit (09/08/20) SARS-CoV-2 mRNA (tozinameran) vaccine: 0.3 unknown unit (08/18/20) tetanus/diphth/pertuss (Tdap) adult/adol: 0 unknown unit (12/16/15) Code Status Code Status - Ordered -- 09/30/23 17:18:00 EDT, Full Code, Constant Order Digitally Signed by ROBERT MONCADA MD on 10/01/2023 09:01 AM [facility] 09-30-2023 Note SINUS RHYTHM Electronic Signature: ROBBIE LIVINGSTON MD 10/02/2023 14:46:31 [facility] 09-30-2023 Note SINUS RHYTHM Electronic Signature: ROBBIE LIVINGSTON MD 10/02/2023 14:46:27 [facility] 09-30-2023 Note ORIGINAL EXAMINATION: ONE XRAY VIEW OF THE CHEST09/30/2023 2:20 pm COMPARISON: None. HISTORY: ORDERING SYSTEM PROVIDED HISTORY: Reason for Exam: chest pain FINDINGS: The cardiomediastinal silhouette is unremarkable. There is no pulmonary vascular congestion. There is no focal consolidation. No significant volume pleural effusion. No pneumothorax. No acute osseous abnormality by radiograph. Osseous detail is limited. Surgical clips within the right upper quadrant. IMPRESSION: No acute radiographic findings. I have personally reviewed the images of this examination and agree with the resident's findings and interpretation. Interpreted by: Rustam Soto MD Preliminary Report By: Jimmy Verde Electronically signed By Rustam Soto MD Dictated Date: 09/30/2023 2:27:47 PM Prelim Date: 09/30/2023 2:29:28 PM Sign Date: 09/30/2023 2:49:27 PM [facility] SINUS RHYTHM Electronic Signature: MD MARCY VERONICA MD 09/30/2023 16:24:27 [facility] 09-30-2023 Evaluation + Plan note Extrac elena from: Title:History and Physical Author:ROBERT MONCADA MD Date:09/30/23 1. Chest pain rule out ACS 2. Unstable angina Patient presented with 1 week history of chest pain that is worsening and today morning episode was severe enough to come to the ED. EKG: NSR Mother had CABG at age 35 years Troponin: Negative x 2 Heart score: 4 Plan START aspirin 81 mg p.o. daily START atorvastatin 40 mg p.o. daily START NTG 0.4 mg sublingual as needed for chest pain FOLLOW ECHO N.p.o. past midnight for possible stress test 2. Hypertension Blood pressure was mildly elevated on admission but now is in appropriate range Plan CONTINUE lisinopril 40 mg p.o. daily CONTINUE metoprolol succinate 50 mg p.o. daily 3. DM2 Fingerstick in acceptable range Plan START sliding scale insulin 4. Hyperlipidemia Plan INCREASE rosuvastatin to 40 mg p.o. daily 5. History of SLE No signs of acute flare Plan CONTINUE hydroxychloroquine 200 mg p.o. twice daily 6. GERD Denies current burning sensation in stomach Plan CONTINUE pantoprazole 40 mg p.o. daily 7. Anxiety Denies current anxiety episode/suicidal ideation Plan CONTINUE escitalopram 20 mg p.o. at bedtime Addendum by VICKY HERNANDEZ MD on October 01, 2023 19:46:39 EDT I have personally seen, examined and evaluated the patient on the encounter date. I have reviewed the fellow's documentation and agree with the fellow's findings and plan as documented, unless otherwise stated. Future Appointments Appointment Date:10/29/2023 01:00:00 PM Scheduled Provider:PINEDA ROSSI Location:[facility] Appointment Type:CV [facility] 06-19-2024 History of Present illness Narrative* Giselle Boykin MD - 09/19/2023 10:30 AM EDT CHIEF COMPLAINT Follow-up (Follow up for HTN, and DM/Recent Lt knee issues) HISTORY OF PRESENT ILLNESS China Ortiz is a 53 y.o. female presents today for follow up of Follow-up (Follow up for HTN, and DM/Recent Lt knee issues) HPI Left knee pain when going up stairs. Started about 3-4 weeks ago. Uses a topical pain relieving gel. Feels the pain medially and under patella. No recent or remote injury to the left knee. Skin spot on chest - tender and itchy. Has been there about 1 year. Has not been checking BP at home. Swims almost daily for exercise. REVIEW OF SYSTEMS Review of Systems Constitutional: Negative for chills and fever. HENT: Negative for sore throat. Respiratory: Negative for cough and shortness of breath. Cardiovascular: Negative for chest pain, palpitations and leg swelling. Gastrointestinal: Negative for abdominal pain, constipation, diarrhea, nausea and vomiting. Musculoskeletal: Positive for arthralgias. Negative for back pain and gait problem. Skin: Negative for rash. Spot on chest Neurological: Negative for dizziness, light-headedness and headaches. Psychiatric/Behavioral: Negative for confusion. ALLERGIES Bacitracin, Hydromorphone, Sulfamethoxazole-trimethoprim, Victoza 2-bashir [liraglutide], and Opioids - morphine analogues MEDICATIONS Current Outpatient Medications Medication Instructions blood sugar diagnostic (Accu-Chek Caitlyn Plus test strp) strip Check fasting blood sugar once daily.Record in log book. escitalopram (LEXAPRO) 20 mg, oral, Daily ferrous sulfate, 325 mg ferrous sulfate, tablet 1 tablet, oral, 2 times daily (morning and late afternoon) hydroxychloroquine (PLAQUENIL) 200 mg, oral, 2 times daily hydrOXYzine HCL (ATARAX) 25 mg, oral, 2 times daily PRN lisinopril 40 mg, oral, Daily metFORMIN (GLUCOPHAGE) 500 mg, oral, 2 times daily (morning and late afternoon) metoprolol succinate XL (TOPROL-XL) 50 mg, oral, Daily omeprazole (PRILOSEC) 40 mg, oral, Daily rosuvastatin (CRESTOR) 5 mg, oral, Nightly TOBACCO USE Social History Tobacco Use Smoking Status Never Smokeless Tobacco Never DEPRESSION SCREEN Over the past 2 weeks, how often have you been bothered by any of the following problems? Little interest or pleasure in doing things: Not at all Feeling down, depressed, or hopeless: Not at all SURGICAL HISTORY Past Surgical History: 11/23/2015: SECTION, CLASSIC Comment: Section 04/16/2013: CHOLECYSTECTOMY Comment: Cholecystectomy 08/08/2017: COLONOSCOPY Comment: Complete Colonoscopy 04/16/2013: PANCREATECTOMY Comment: Pancreatectomy 04/16/2013: SPLENECTOMY, TOTAL Comment: Splenectomy 02/05/2020: TOTAL ABDOMINAL HYSTERECTOMY W/ BILATERAL SALPINGOOPHORECTOMY Comment: Total hysterectomy with removal of both tubes and ovaries 04/16/2013: VENTRAL HERNIA REPAIR Comment: Ventral Hernia Repair 02/18/2019: VENTRAL HERNIA REPAIR Comment: Ventral hernia repair OBJECTIVE BP 138/88 Pulse 70 Temp 35.8 C (96.4 F) Ht 1.575 m (5' 2") Wt 91 kg (200 lb 11.2 oz) MeQ026% BMI 36.71 kg/m BMI: Estimated body mass index is 36.71 kg/m as calculated from the following: Height as of this encounter: 1.575 m (5' 2"). Weight as of this encounter: 91 kg (200 lb 11.2 oz). BP Readings from Last 3 Encounters: 09/19/23 138/88 05/03/23 (!) 125/95 03/20/23 (!) 125/92 Wt Readings from Last 3 Encounters: 09/19/23 91 kg (200 lb 11.2 oz) 05/03/23 88.8 kg (195 lb 12.8 oz) 03/20/23 89.4 kg (197 lb) PHYSICAL EXAM Physical Exam Constitutional: Appearance: Normal appearance. HENT: Head: Normocephalic and atraumatic. Cardiovascular: Rate and Rhythm: Normal rate and regular rhythm. Pulses: Normal pulses. Heart sounds: No murmur heard. Pulmonary: Effort: Pulmonary effort is normal. No respiratory distress. Breath sounds: Normal breath sounds. No wheezing. Abdominal: General: There is no distension. Palpations: Abdomen is soft. Tenderness: There is no abdominal tenderness. Musculoskeletal: Right lower leg: No edema. Left lower leg: No edema. Comments: No swelling or crepitus in knees. Some tightness with flexion / extension in left knee, however ROM is intact Skin: Findings: Lesion present. No rash. Comments: ~ 2 mm pink papule mid chest area Neurological: General: No focal deficit present. Mental Status: She is alert and oriented to person, place, and time. Mental status is at baseline. Psychiatric: Mood and Affect: Mood normal. Behavior: Behavior normal. Thought Content: Thought content normal. Judgment: Judgment normal. ASSESSMENT AND PLAN Assessment/Plan Problem List Items Addressed This Visit Benign essential hypertension - Primary DM2 (diabetes mellitus, type 2) (Multi) Relevant Orders Hemoglobin A1c Left anterior knee pain Other Visit Diagnoses Skin lesion of chest wall Relevant Orders Referral to Dermatology Screening for skin cancer Relevant Orders Referral to Dermatology Hypertension - BP has been elevated lately. Continue current medication. Try to work on some moderate weight loss. If still elevated at next visit, will plan on adding medication. Aim for 30 minutes of aerobic exercise, 5 times per week. Try to cut back on processed foods, including foods made withflour, sugar, added salt, and saturated fat. DM2 - Check A1c with next lab draw. Papule / skin lesion of chest wall - possible scar or fibrous papule, will refer to derm to eval for possible BCC and for full skin check. Left knee pain - possible mild patellar arthritis or strain. I encouraged quad strengthening exercises, can try [employer] on YouTube. Rest, ice, brace when in flare-up. If home exercises failto help, I encouraged her to contact me for formal PT referral. Follow-up 6 months. documented in this [facility] Work Phone: 1([phone]) 237-657702-01-2024 Evaluation + Plan note* Assessment & Plan Note - Maura Lange MD - 05/03/2023 12:00 PM ESTAssociated Problem(s): Systemic lupus erythematosus (CMS/HCC) Lupus on plaquenil therapy. More musculoskeletal complaints in the setting of situational depression. Labs ordered today to monitor for increased disease activity, end organ manifestations and to monitor for any drug toxicities due to chronic medications [facility] Work Phone: [phone] 640-253902-01-2024 Miscellaneous Notes* Assessment & Plan Note - Maura Lange MD - 05/03/2023 12:00 PM ESTAssociated Problem(s): Systemic lupus erythematosus (CMS/HCC) Lupus on plaquenil therapy. More musculoskeletal complaints in the setting of situational depression. Labs ordered today to monitor for increased disease activity, end organ manifestations and to monitor for any drug toxicities due to chronic medications * Assessment & Plan Note - Maura Lange MD - 05/03/2023 11:57 AM EST Associated Problem(s): Encounter for monitoring of hydroxychloroquine therapy You are on chronic plaquenil. Make sure you see your eye doctor yearly. If you need an eye doctor, let me know and I can place a referral Plaquenil is dosed based on your weight. We will make sure your dose is below the maximum daily dose of 5mg/kg * Assessment & Plan Note - Maura Lange MD - 05/03/2023 11:54 AM EST Associated Problem(s): Situational depression Under stress --dad has prostate cancer. Counselling done * Assessment & Plan Note - Maura Lange MD - 05/03/2023 11:53 AM EST Associated Problem(s): DM2 (diabetes mellitus, type 2) (CMS/HCC) Chronic Condition Documentation: Stable based on symptoms and exam. Continue established treatment plan and follow-up at least yearly. Managed by PCP [facility] Work [facility]: [phone] 429-644902-01-2024 Evaluation + Plan note* Assessment & Plan Note - Maura Lange MD - 05/03/2023 11:57 AM ESTAssociated Problem(s): Encounter for monitoring of hydroxychloroquine therapy You are on chronic plaquenil. Make sure you see your eye doctor yearly. If you need an eye doctor, let me know and I can place a referral Plaquenil is dosed based on your weight. We will make sure your dose is below the maximum daily dose of 5mg/kg [facility] Work Phone: [phone]) 990-747702-01-2024 Evaluation + Plan note* Assessment & Plan Note - Maura Lange MD - 05/03/2023 11:54 AM ESTAssociated Problem(s): Situational depression Under stress --dad has prostate cancer. Counselling done [facility] Work Phone: [phone] Evaluation + Plan note* Assessment & Plan Note - Maura Lange MD - 05/03/2023 11:53 AM ESTAssociated Problem(s): DM2 (diabetes mellitus, type 2) (CMS/HCC) Chronic Condition Documentation: Stable based on symptoms and exam. Continue established treatment plan and follow-up at least yearly. Managed by PCP [facility] Work Phone: [phone] History of Present illness Narrative* Maura Lange MD - 05/03/2023 10:45 AM EST Chief Complaint Patient presents with Follow-up Lupus SUBJECTIVE Lupus This is a chronic problem. The problem has been unchanged. Associated symptoms include arthralgias,fatigue and myalgias. Pertinent negatives include no coughing, fever, joint swelling, numbness, rash or weakness. Associated symptoms comments: Having aches and pains. Does state she is more depressed--dealing with dad's prostate cancer and 1 yr anniversary of mom's . Pt can't tell if aching is from lupus or her depression. No worsening rash Has increased pain from an impacted wisdom tooth which can't get treated until May. Patient Active Problem List Diagnosis Date Noted Class 2 severe obesity due to excess calories with serious comorbidity and body mass index (BMI) of35.0 to 35.9 in adult ([facility]) 05/03/2023 Encounter for monitoring of hydroxychloroquine therapy 04/29/2023 Abnormal mammogram 12/07/2022 Anemia 12/07/2022 Asplenia 12/07/2022 Benign essential hypertension 12/07/2022 Chronic diarrhea 12/07/2022 Chronic migraine without aura, with intractable migraine, so stated, with status migrainosus 12/07/2022 DM2 (diabetes mellitus, type 2) ([facility]) 12/07/2022 GERD (gastroesophageal reflux disease) 12/07/2022 Mixed hyperlipidemia 12/07/2022 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 Situational anxiety 12/07/2022 Situational depression 12/07/2022 Systemic lupus erythematosus ([facility]) 12/07/2022 Vitamin D deficiency 12/07/2022 Liver hemangioma 12/07/2022 Past Medical History: Diagnosis Date Acute pancreatitis 01/22/2003 Anxiety Benign intracranial hypertension 05/22/2018 Pseudotumor cerebri Caffeine use Cyst and pseudocyst of pancreas 01/22/2003 Dental infection 04/18/2023 Diabetes 1.5, managed as type 2 ([facility]) Herpes simplex 08/07/2019 History of herpes simplex infection Hyperkalemia 08/26/2020 History of hyperkalemia 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 escitalopram (LEXAPRO) 20 mg, oral, Daily ferrous sulfate, 325 mg ferrous sulfate, tablet 1 tablet, oral, 2 times daily with meals hydroxychloroquine (Plaquenil) 200 mg tablet oral hydrOXYzine HCL (ATARAX) 25 mg, oral, 2 times daily PRN lisinopril 20 mg tablet 1 tablet, oral, Daily metFORMIN (GLUCOPHAGE) 500 mg, oral, 2 times daily with meals metoprolol succinate XL (Toprol-XL) 50 mg 24 hr tablet 1 tablet, oral, Daily omeprazole (PRILOSEC) 40 mg, oral, Daily rosuvastatin (CRESTOR) 5 mg, oral, Nightly Allergies Allergen Reactions Bacitracin Other Hydromorphone Hives Sulfamethoxazole-Trimethoprim Other blisters Victoza 2-Bashir [Liraglutide] Hives Opioids - Morphine Analogues Nausea And Vomiting, Rash and Nausea/vomiting dilaudid Review of Systems Constitutional: Positive for fatigue. Negative for fever. Respiratory: Negative for cough and shortness of breath. Cardiovascular: Negative for leg swelling. Musculoskeletal: Positive for arthralgias and myalgias. Negative for back pain, gait problem and joint swelling. Skin: Negative for color change and rash. Neurological: Negative for weakness and numbness. Psychiatric/Behavioral: Positive for dysphoric mood. PHYSICAL EXAM BP (!) 125/95 (BP Location: Left arm, Patient Position: Sitting, BP Cuff Size: Adult) Pulse 70 Temp 36.3 C (97.3 F) (Temporal) Wt 88.8 kg (195 lb 12.8 oz) SpO2 98% BMI 35.81 kg/m Physical Exam Vitals reviewed. Constitutional: General: She is not in acute distress. Appearance: Normal appearance. HENT: Head: Normocephalic and atraumatic. Eyes: Conjunctiva/sclera: Conjunctivae normal. Pulmonary: Effort: Pulmonary effort is normal. No respiratory distress. Musculoskeletal: General: No swelling, tenderness or deformity. Cervical back: Normal range of motion. Right lower leg: No edema. Left lower leg: No edema. Comments: No synovitis of examined joints Mild swelling dorsum of hand Skin: Coloration: Skin is not pale. Findings: No erythema or rash. Neurological: General: No focal deficit present. Mental Status: She is alert and oriented to person, place, and time. Mental status is at baseline. Gait: Gait normal. Psychiatric: Comments: Sad mood Assessment/plan Problem List Items Addressed This Visit DM2 (diabetes mellitus, type 2) ([facility]) Current Assessment & Plan Chronic Condition Documentation: Stable based on symptoms and exam. Continue established treatment plan and follow-up at least yearly. Managed by PCP GERD (gastroesophageal reflux disease) Relevant Medications omeprazole (PriLOSEC) [address] capsule Situational depression Current Assessment & Plan Under stress --dad has prostate cancer. Counselling done Systemic lupus erythematosus ([facility]) - Primary Current Assessment & Plan Lupus on plaquenil therapy. More musculoskeletal complaints in the setting of situational depression. Labs ordered today to monitor for increased disease activity, end organ manifestations and to monitor for any drug toxicities due to chronic medications Relevant Orders Anti-DNA Antibody, Double-Stranded C3 Complement C4 Complement CBC and Auto Differential Comprehensive Metabolic Panel C-Reactive Protein Sedimentation Rate Encounter for monitoring of hydroxychloroquine therapy Current Assessment & Plan You are on chronic plaquenil. Make sure you see your eye doctor yearly. If you need an eye doctor, let me know and I can place a referral Plaquenil is dosed based on your weight. We will make sure your dose is below the maximum daily dose of 5mg/kg Class 2 severe obesity due to excess calories with serious comorbidity and body mass index (BMI) of35.0 to 35.9 in adult ([facility]) Follow up: ___6__months [facility] Phone: [phone] Instructions* Patient Instructions* Maura Lange MD - 05/03/2023 10:45 AM EST It was a pleasure to see you today Please call if your symptoms worsen Please review your summary for education and reminders. Follow up at your next appointment. If you had labs/xrays done today, you will be able to view on MyChart. We will contact you when theresults are reviewed for further discussion. Please note that you may receive your results before Ihave had a chance to review. Please know I will be contacting you for discussion Homegoing instructions for all patient A healthy lifestyle helps chronic diseases These are all the goals you should strive to improve your overall health Blood pressure <130/85 BMI of <30 or waist circumference that is 1/2 of your height Fasting blood sugar <107 (if you are diabetic, aim for an A1c <6.4%_ LDL cholesterol <130 Avoid smoking Manage your stress Get your preventive exams Get your immunizations documented in this [facility] Work Phone: 1(242) 432-613912-19-2023 History of Present illness Narrative* Giselle Boykin MD - 03/20/2023 3:00 PM EST Subjective Patient ID: China Ortiz is a 53 y.o. female who presents for Hypertension and Diabetes. HPI Stopped Victoza due to hives. Blood sugar has been controlled with metformin. Needs Rx for iron. Seeing Dr. Lange in about 6 weeks, will do fasting labs at that time. Would like flu shot today. Review of Systems Constitutional: Negative for chills and fever. HENT: Negative for sore throat. Respiratory: Negative for cough and shortness of breath. Cardiovascular: Negative for chest pain, palpitations and leg swelling. Gastrointestinal: Negative for abdominal pain, constipation, diarrhea, nausea and vomiting. Musculoskeletal: Negative for arthralgias, back pain and gait problem. Skin: Negative for rash. Neurological: Negative for dizziness, light-headedness and headaches. Psychiatric/Behavioral: Negative for confusion. Objective BP (!) 125/92 Pulse 85 Temp 36.2 C (97.1 F) Ht 1.575 m (5' 2") Wt 89.4 kg (197 lb) SpO2 99% BMI 36.03 kg/m Physical Exam Constitutional: Appearance: Normal appearance. HENT: Head: Normocephalic and atraumatic. Cardiovascular: Rate and Rhythm: Normal rate and regular rhythm. Heart sounds: No murmur heard. Pulmonary: Effort: Pulmonary effort is normal. No respiratory distress. Breath sounds: Normal breath sounds. No wheezing. Abdominal: General: There is no distension. Palpations: Abdomen is soft. Tenderness: There is no abdominal tenderness. Musculoskeletal: Right lower leg: No edema. Left lower leg: No edema. Neurological: General: No focal deficit present. Mental Status: She is alert and oriented to person, place, and time. Mental status is at baseline. Psychiatric: Mood and Affect: Mood normal. Behavior: Behavior normal. Thought Content: Thought content normal. Judgment: Judgment normal. Assessment/Plan Problem List Items Addressed This Visit ICD-10-CM Anemia D64.9 Relevant Medications ferrous sulfate, 325 mg ferrous sulfate, tablet Benign essential hypertension - Primary I10 DM2 (diabetes mellitus, type 2) (CMS/HCC) E11.9 Relevant Medications metFORMIN (Glucophage) 500 mg tablet Other Relevant Orders Hemoglobin A1c Mixed hyperlipidemia E78.2 Relevant Orders Lipid Panel DM2 - continue metformin. Order for A1c. Mixed hyperlipidemia - order for FLP (to be done first week in May). Continue statin. Anemia - Rx sent for iron. Hypertension - diastolic is elevated, continue current medication and try to work on healthy diet, regular exercise. SLE - follows with Dr. Lange. Flu shot today. Follow-up 6 months and PRN. documented in this [facility] Work Phone: 1([phone]) 471-619511-01-2023 Note* Significant Event - Jennifer Melo RN - 01/31/2023 10:[address] Vicente at bedside speaking with pt and niece Pt katie PO [facility]11-01-2023 Note* Significant Event - Jennifer Melo RN - 01/31/2023 10:[address] Vicente at bedside speaking with pt and niece Pt katie PO [facility]11-01-2023 Miscellaneous Notes* Significant Event - Jennifer Melo RN - 01/31/2023 10:[address] Vicente at bedside speaking with pt and navjot wilson PO documented in this [facility] Work Phone: [phone] Hospital Discharge instructions* Discharge Instructions* Jennifer Melo RN - 01/31/2023 10:03 AM EDT Patient Instructions Post Procedure The anesthetics, sedatives or narcotics which were given to you today will be acting in your body for the next 24 hours, so you might feel a little sleepy or groggy. This feeling should slowly wear off. Carefully read and follow the instructions. You received sedation today: - Do not drive or operate any machinery or power tools of any kind. - No alcoholic beverages today, not even beer or wine. - Do not make any important decisions or sign any legal documents. - No over the counter medications that contain alcohol or that may cause drowsiness. While it is common to experience mild to moderate abdominal distention, gas, or belching after yourprocedure, if any of these symptoms occur following discharge from the GI Lab or within one week ofhaving your procedure, call the [facility] to be advised whether a visit to your nearest Urgent Care or Emergency Department is indicated. Take this paper with you if you go. - If you develop an allergic reaction to the medications that were given during your procedure suchas difficulty breathing, rash, hives, severe nausea, vomiting or lightheadedness. - If you experience chest pain, shortness of breath, severe abdominal pain, fevers and chills. -If you develop signs and symptoms of bleeding such as blood in your spit, if your stools turn black, tarry, or bloody - If you have not urinated within 8 hours following your procedure. - If your IV site becomes painful, red, inflamed, or looks infected. If you received a biopsy/polypectomy/sphincterotomy the following instructions apply below: __ Do not use Aspirin containing products, non-steroidal medications or anti- coagulants for one week following your procedure. (Examples of these types of medications are: Advil, Arthrotec, Aleve, Coumadin, Ecotrin, Heparin, Ibuprofen, Indocin, Motrin, Naprosyn, Nuprin, Plavix, Vioxx, and Voltarin,or their generic forms. This list is not all-inclusive. Check with your physician or pharmacist before resuming medications.) __ Eat a soft diet today. Avoid foods that are poorly digested for the next 24 hours. These foods would include: nuts, beans, lettuce, red meats, and fried foods. Start with liquids and advance your diet as tolerated, gradually work up to eating solids. __ Do not have a Barium Study or Enema for one week. Your physician recommends the additional following instructions: -You have a contact number available for emergencies. The signs and symptoms of potential delayed complications were discussed with you. You may return to normal activities tomorrow. -Resume your previous diet or other if specified. -Continue your present medications. -We are waiting for your pathology results, if applicable. -The findings and recommendations have been discussed with you and/or family. - Please see Medication Reconciliation Form for new medication/medications prescribed. If you experience any problems or have any questions following discharge from the GI Lab, please call: [phone] from 7 am- 4:30 pm. In the event of an emergency please go to the closest Emergency Department or call Dr. Vicente [phone] documented in this [facility] Work Phone: 1(945) 398-727511-01-2023 History and physical note* Ángel Vicente, - 01/31/2023 9:00 AM EDT Outpatient Hospital Procedure H&P Patient Profile-Procedures Name China Ortiz Date of 1970 Address [address] [facility] [id number] [facility] [place] [address] Primary Secondary Phone Number Giselle Ramos Procedure(s): Colonoscopy Primary contact name and number Extended Emergency Contact Information Primary Emergency Contact: Lizeth Hood Address: [address] [place] [address] [place] Relation: Sibling General Health Weight Vitals: 01/31/23 0911 Weight: 88.9 kg (196 lb) BMI Body mass index is 35.85 kg/m . Allergies Allergies Allergen Reactions Bacitracin Other Hydromorphone Hives and Other Sulfamethoxazole-Trimethoprim Other Past Medical History Past Medical History: Diagnosis Date Anxiety Benign intracranial hypertension 05/22/2018 Pseudotumor cerebri Diabetes 1.5, managed as type 2 ([facility]) Encounter for gynecological examination (general) (routine) without abnormal findings 11/23/2015 Pap smear, as part of routine gynecological examination Hypertension alf (current) use of non-steroidal anti-inflammatories (nsaid) 09/26/2017 NSAID long-term use Other specified postprocedural states History of ERCP Personal history of other diseases of the female genital tract 08/19/2018 History of menorrhagia Personal history of other drug therapy 04/11/2019 History of influenza vaccination Personal history of other endocrine, nutritional and metabolic disease 08/26/2020 History of hyperkalemia Personal history of other infectious and parasitic diseases 08/07/2019 History of herpes simplex infection Personal history of other specified conditions 08/31/2021 History of nausea and vomiting Unspecified lump in the left breast, unspecified quadrant 05/11/2014 Left breast lump Provider assessment Diagnosis: Colon cancer screening. Medication Reviewed - yes Prior to Admission medications Medication Sig Start Date End Date Taking? Authorizing Provider escitalopram (Lexapro) 20 mg tablet Take by mouth. 04/23/17 Yes Historical Provider, ferrous sulfate 325 (65 Fe) MG tablet Take 1 tablet (325 mg) by mouth 2 times a day with meals. YesHistorical Provider, hydroxychloroquine (Plaquenil) 200 mg tablet Take by mouth. 09/16/12 Yes Historical Provider, hydrOXYzine HCL (Atarax) 25 mg tablet Take 1 tablet (25 mg) by mouth 2 times a day as needed. 08/19/18 Yes Historical Provider, lisinopril 20 mg tablet Take 1 tablet (20 mg) by mouth once daily. 10/21/14 Yes Historical Provider, metoprolol succinate XL (Toprol-XL) 50 mg 24 hr tablet Take 1 tablet (50 mg) by mouth once daily. 10/11/15 Yes Historical Provider, omeprazole (PriLOSEC) [address] capsule Take 1 capsule (40 mg) by mouth once daily. 07/16/17 Yes Historical Provider, rosuvastatin (Crestor) 5 mg tablet Take 1 tablet (5 mg) by mouth once daily at bedtime. 09/04/19 Yes Historical Provider, albuterol (Ventolin HFA) 90 mcg/actuation inhaler Inhale 2 puffs every 4 hours if needed. 07/20/16 Historical Provider, blood sugar diagnostic (Accu-Chek Caitlyn Plus test strp) strip Check fasting blood sugar once daily.Record in log book. 02/05/20 Historical Provider, busPIRone (Buspar) 10 mg tablet Take by mouth twice a day. 11/15/20 Historical Provider, cyanocobalamin (Vitamin B-12) 1,000 mcg tablet Take by mouth. Historical Provider, metFORMIN (Glucophage) 500 mg tablet Take 1 tablet (500 mg) by mouth 2 times a day. 12/14/15 01/31/23Historical Provider, rizatriptan (Maxalt) 10 mg tablet Take by mouth every 2 hours. 08/15/18 01/31/23 Historical Provider, zonisamide (Zonegran) 100 mg capsule Take by mouth. 11/18/18 01/31/23 Historical Provider, Physical Exam Vitals: 01/31/23 0911 BP: 102/82 Pulse: 87 Resp: 17 Temp: 36 C (96.8 F) SpO2: 99% General: A&Ox3, NAD. HEENT: AT/NC. CV: RRR. No murmur. Resp: CTA bilaterally. No wheezing, rhonchi or rales. GI: Soft, NT/ND. Extrem: No edema. Pulses intact. Skin: No Jaundice. Neuro: No focal deficits. Psych: Normal mood and affect. Oropharyngeal Classification II (hard and soft palate, upper portion of tonsils anduvula visible) ASA PS Classification 2 Sedation Plan: Deep Sedation. Procedure Plan - pre-procedural (re)assesment completed by physician: discharge/transfer patient when discharge criteria met Ángel Vicente DO 01/31/2023 9:24 AM [facility] Work Phone: 1([phone]) 224-755911-01-2023 History and physical note* Ángel Vicente DO - 01/31/2023 9:00 AM EDT Outpatient Hospital Procedure H&P Patient Profile-Procedures Name China Ortiz Date of 1970 Address [address] [facility] [phone] [place], [place] [id number] Primary Secondary Phone Number PCP Giselle Boykin Procedure(s): Colonoscopy Primary contact name and number Extended Emergency Contact Information Primary Emergency Contact: Lizeth Hood Address: [address] [place], [place] [id number] [place] [address] of [facility] Relation: Sibling General Health Weight Vitals: 01/31/23 0911 Weight: 88.9 kg (196 lb) BMI Body mass index is 35.85 kg/m . 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) use of non-steroidal anti-inflammatories (nsaid) 09/26/2017 NSAID long-term use Other specified postprocedural states History of ERCP Personal history of other diseases of the female genital tract 08/19/2018 History of menorrhagia Personal history of other drug therapy 04/11/2019 History of influenza vaccination Personal history of other endocrine, nutritional and metabolic disease 08/26/2020 History of hyperkalemia Personal history of other infectious and parasitic diseases 08/07/2019 History of herpes simplex infection Personal history of other specified conditions 08/31/2021 History of nausea and vomiting Unspecified lump in the left breast, unspecified quadrant 05/11/2014 Left breast lump Provider assessment Diagnosis: Colon cancer screening. Medication Reviewed - yes Prior to Admission medications Medication Sig Start Date End Date Taking? Authorizing Provider escitalopram (Lexapro) 20 mg tablet Take by mouth. 04/23/17 Yes Historical Provider, ferrous sulfate 325 (65 Fe) MG tablet Take 1 tablet (325 mg) by mouth 2 times a day with meals. YesHistorical Provider, hydroxychloroquine (Plaquenil) 200 mg tablet Take by mouth. 09/16/12 Yes Historical Provider, hydrOXYzine HCL (Atarax) 25 mg tablet Take 1 tablet (25 mg) by mouth 2 times a day as needed. 08/19/18 Yes Historical Provider, lisinopril 20 mg tablet Take 1 tablet (20 mg) by mouth once daily. 10/21/14 Yes Historical Provider, metoprolol succinate XL (Toprol-XL) 50 mg 24 hr tablet Take 1 tablet (50 mg) by mouth once daily. 10/11/15 Yes Historical Provider, omeprazole (PriLOSEC) [address] capsule Take 1 capsule (40 mg) by mouth once daily. 07/16/17 Yes Historical Provider, rosuvastatin (Crestor) 5 mg tablet Take 1 tablet (5 mg) by mouth once daily at bedtime. 09/04/19 Yes Historical Provider, albuterol (Ventolin HFA) 90 mcg/actuation inhaler Inhale 2 puffs every 4 hours if needed. 07/20/16 Historical Provider, blood sugar diagnostic (Accu-Chek Caitlyn Plus test strp) strip Check fasting blood sugar once daily.Record in log book. 02/05/20 Historical Provider, busPIRone (Buspar) 10 mg tablet Take by mouth twice a day. 11/15/20 Historical Provider, cyanocobalamin (Vitamin B-12) 1,000 mcg tablet Take by mouth. Historical Provider, metFORMIN (Glucophage) 500 mg tablet Take 1 tablet (500 mg) by mouth 2 times a day. 12/14/15 01/31/23Historical Provider, rizatriptan (Maxalt) 10 mg tablet Take by mouth every 2 hours. 08/15/18 01/31/23 Historical Provider, zonisamide (Zonegran) 100 mg capsule Take by mouth. 11/18/18 01/31/23 Historical Provider, Physical Exam Vitals: 01/31/23 0911 BP: 102/82 Pulse: 87 Resp: 17 Temp: 36 C (96.8 F) SpO2: 99% General: A&Ox3, NAD. HEENT: AT/NC. CV: RRR. No murmur. Resp: CTA bilaterally. No wheezing, rhonchi or rales. GI: Soft, NT/ND. Extrem: No edema. Pulses intact. Skin: No Jaundice. Neuro: No focal deficits. Psych: Normal mood and affect. Oropharyngeal Classification II (hard and soft palate, upper portion of tonsils anduvula visible) ASA PS Classification 2 Sedation Plan: Deep Sedation. Procedure Plan - pre-procedural (re)assesment completed by physician: discharge/transfer patient when discharge criteria met Ángel Vicente DO 01/31/2023 9:24 AM documented in this [facility] Work Phone: [phone]) 177-610801-17-2023 History of Present illness Narrative* Here today for hospital follow-up. * On 04/18, was driving home and started having severe right upper abdominal pain. * Acutely nauseated, had to sample puller to throw up. * Made her way home and then daughter drove her to ER at [place]. * Given IV fluids, had CT scan, concerned for kidney stone. * CT with possible multiple hemangiomas, requires follow-up MRI. * Symptoms were treated and she was sent home. * She states she gets the pain 7-8 times per day - has been going for "a while," at least 1 year. * States that this most recent episode was the most severe. Does not usually throw up. * Hospital records reviewed. See above re: CT. * Labs unremarkable. [facility] Work Phone: 1([phone]) 526-953101-17-2023 History of Present illness Narrative* Here today for hospital follow-up. * On 04/18, was driving home and started having severe right upper abdominal pain. * Acutely nauseated, had to sample puller to throw up. * Made her way home and then daughter drove her to ER at [place]. * Given IV fluids, had CT scan, concerned for kidney stone. * CT with possible multiple hemangiomas, requires follow-up MRI. * Symptoms were treated and she was sent home. * She states she gets the pain 7-8 times per day - has been going for "a while," at least 1 year. * States that this most recent episode was the most severe. Does not usually throw up. * Hospital records reviewed. See above re: CT. * Labs unremarkable. [facility] Work Phone: [phone]) 461-427810-01-2022 Influenza virus A and B RNA and SARS-CoV-2 (COVID-19) N gene panel CARLY+probe (Resp)COVID 19 RESULT: SARS-CoV-2 (Agent of COVID-19) Not Detected by RT-PCR or equivalent method. antoni [id number] (CB)_EUA This test was developed and its performance characteristics determined by [facility]. This test has been authorized by FDA under an Emergency Use Authorization (EUA). This test has been validated in accordance with the FDA's Guidance Document Policy for DiagnosticsTesting in Laboratories Certified to Perform High Complexity Testing under CLIA prior to Emergency use Authorization for Coronavirus Disease 2019 during the Public Health Emergency" issued on May 31, 2019. Test performed by [facility], [facility], [address] [place] [address]. INFLUENZA A PCR: Negative for Influenza A by RT-PCR INFLUENZA B PCR: Negative for Influenza B by RT-PCRChildren'S Hospital Of ColumbusComment on above: Performed By: #### [id number] #### [facility] CLIA [id number] [address] [place], [place] [address] [place] [address] [place] [id number] NoteHNO ID: [id number] Author: Koby Braun APRN.[employer] DUTY MANAGER Service: ? Author Type: Nurse Practitioner Type: Progress Notes Filed: 12/31/2021 2:26 PM Note Text: This note was created using NoteWriter. Subjective China Ortiz is a 51 year old female with pmh of PAST MEDICAL HISTORY Diagnosis Date Acute pancreatitis 09/2002 3 previous bouts Cyst and pseudocyst of pancreas 2002 Family history of diabetes mellitus Lupus (HCC) Migraine without aura Presents to [facility] of cough and congestion Patient complains of cough and congestion Onset 2 days ago Associated symptoms: sore throat, wheezing, sinus pressure, DANIEL, body aches. No alleviating or aggravating factors Her grandson is ill with similar symptoms She has mostly clear phlegm Denies difficulty breathing, CP, fever, chills, night sweats,, GI disturbances, edema (see ROS) Review of Systems Constitutional: Positive for fatigue. Negative for chills and fever. HENT: Positive for sinus pressure, sinus pain and sore throat. Negative for trouble swallowing. Respiratory: Positive for cough and wheezing. Negative for chest tightness and shortness of breath. Cardiovascular: Negative for chest pain and palpitations. Gastrointestinal: Negative for abdominal pain, constipation, diarrhea, nausea and vomiting. Musculoskeletal: Positive for arthralgias and myalgias. Skin: Negative for rash and wound. Neurological: Positive for headaches. Negative for dizziness. Psychiatric/Behavioral: Negative. Objective BP 130/85 Pulse 99 Temp 37.1 ?C (98.7 ?F) (Tympanic) Resp 18 Wt 91.2 kg (201 lb) LMP 11/03/2015 (Approximate) SpO2 97% BMI 36.76 kg/m? Physical Exam Constitutional: General: She is not in acute distress. HENT: Nose: Rhinorrhea present. No congestion. Mouth/Throat: Mouth: Mucous membranes are moist. Pharynx: Posterior oropharyngeal erythema present. No oropharyngeal exudate. Cardiovascular: Rate and Rhythm: Normal rate and regular rhythm. Pulses: Normal pulses. Heart sounds: Normal heart sounds. Pulmonary: Effort: Pulmonary effort is normal. No respiratory distress. Breath sounds: Normal breath sounds. No wheezing or rales. Abdominal: Palpations: Abdomen is soft. Tenderness: There is no abdominal tenderness. Musculoskeletal: General: No swelling or tenderness. Skin: General: Skin is warm and dry. Findings: Erythema: x. Neurological: General: No focal deficit present. Mental Status: She is alert and oriented to person, place, and time. Psychiatric: Mood and Affect: Mood normal. Behavior: Behavior normal. Assessment and Plan ASSESSMENT/PLAN: 1. Acute cough - ICD9: 786.2, ICD10: R05.1 (primary diagnosis) Likely from viral etiology see#3 Will get covid/flu/RSV - COVID WITH FLUA+B, ROUTINE 2. Sore throat - ICD9: 462, ICD10: J02.9 - suspect viral - Rapid Strep negative in the office today - Discussed supportive care treatment with fluids, rest and analgesia. - RAPID STREP TEST B/O 3. Viral URI with cough - ICD9: 465.9, ICD10: J06.9 - Discussed viral etiology and rationale for treatment. - Symptomatic treatment with prn analgesia - Supportive care with fluids and rest - GUAIFENESIN ER 600 MG TABLET, EXTENDED RELEASE 12 HR Koby Braun APRN.CNPChildren'S Hospital Of Columbus10-01-2022 History of Present illness Narrative* Koby Braun APRN.[employer]IRPORT DUTY MANAGER - 12/31/2021 1:12 PM EDT This note was created using Clipsourceter. Subjective China Ortiz is a 51 year old female with pmh of PAST MEDICAL HISTORY Diagnosis Date Acute pancreatitis 09/2002 3 previous bouts Cyst and pseudocyst of pancreas 2002 Family history of diabetes mellitus Lupus (HCC) Migraine without aura Presents to [facility] of cough and congestion Patient complains of cough and congestion Onset 2 days ago Associated symptoms: sore throat, wheezing, sinus pressure, DANIEL, body aches. No alleviating or aggravating factors Her grandson is ill with similar symptoms She has mostly clear phlegm Denies difficulty breathing, CP, fever, chills, night sweats,, GI disturbances, edema (see ROS) Review of Systems Constitutional: Positive for fatigue. Negative for chills and fever. HENT: Positive for sinus pressure, sinus pain and sore throat. Negative for trouble swallowing. Respiratory: Positive for cough and wheezing. Negative for chest tightness and shortness of breath. Cardiovascular: Negative for chest pain and palpitations. Gastrointestinal: Negative for abdominal pain, constipation, diarrhea, nausea and vomiting. Musculoskeletal: Positive for arthralgias and myalgias. Skin: Negative for rash and wound. Neurological: Positive for headaches. Negative for dizziness. Psychiatric/Behavioral: Negative. Objective BP 130/85 Pulse 99 Temp 37.1 C (98.7 F) (Tympanic) Resp 18 Wt 91.2 kg (201 lb) LMP 11/03/2015 (Approximate) SpO2 97% BMI 36.76 kg/m Physical Exam Constitutional: General: She is not in acute distress. HENT: Nose: Rhinorrhea present. No congestion. Mouth/Throat: Mouth: Mucous membranes are moist. Pharynx: Posterior oropharyngeal erythema present. No oropharyngeal exudate. Cardiovascular: Rate and Rhythm: Normal rate and regular rhythm. Pulses: Normal pulses. Heart sounds: Normal heart sounds. Pulmonary: Effort: Pulmonary effort is normal. No respiratory distress. Breath sounds: Normal breath sounds. No wheezing or rales. Abdominal: Palpations: Abdomen is soft. Tenderness: There is no abdominal tenderness. Musculoskeletal: General: No swelling or tenderness. Skin: General: Skin is warm and dry. Findings: Erythema: x. Neurological: General: No focal deficit present. Mental Status: She is alert and oriented to person, place, and time. Psychiatric: Mood and Affect: Mood normal. Behavior: Behavior normal. Assessment and Plan ASSESSMENT/PLAN: 1. Acute cough - ICD9: 786.2, ICD10: R05.1 (primary diagnosis) Likely from viral etiology see#3 Will get covid/flu/RSV - COVID WITH FLUA+B, ROUTINE 2. Sore throat - ICD9: 462, ICD10: J02.9 - suspect viral - Rapid Strep negative in the office today - Discussed supportive care treatment with fluids, rest and analgesia. - RAPID STREP TEST B/O 3. Viral URI with cough - ICD9: 465.9, ICD10: J06.9 - Discussed viral etiology and rationale for treatment. - Symptomatic treatment with prn analgesia - Supportive care with fluids and rest - GUAIFENESIN ER 600 MG TABLET, EXTENDED RELEASE 12 HR Koby Braun APRN.AIRPORT DUTY MANAGER documented in this [facility]06-[facility] History of Present illness Narrative* Doing well on current medications. * Fasting for labs. * States fasting blood sugar 120-130. * Checks BP infrequently at home, not currently dizzy. [facility] Phone: 1(570) 257-734706-01-2022 History of Present illness Narrative* Current migraine today. Took Rizatriptan at 11AM. Has not helped as yet. Took one middle of last night at 2:30am and was able to go back to sleep. Woke this morning with same migraine then fell back to sleep at 6:30. * Rizatriptan usually works for her. * Migraines more holocephalic today, hair hurts, head feels heavy "like it weighs 100lbs" * Usually migraine either behind eyes or occipital. One area, not whole head. * Migraines occurring once monthly. One dose rizatriptan usually works in 20 min * Associated nausea, light and noise sensitivity. Would like Zofran today. * Triggers are weather, stress, * Continues Zonisamide 300mg for prevention. * Toradol IM protocol has also been helpful in past and would like Toradol IM today. Cannot take oraldue to hx of GI bleed * Buspirone has been helpful for anxiety added last visit. * Taking PRN. Takes about once weekly. * Lexapro daily. Feels mood is managed fair right now. * Has a new neighbor who stresses her out. * Endorses trouble staying asleep. [id number] [address] DO Work Phone: 1([phone]) 201-509506-17-2021 History of Present illness Narrative* Migraines have increased in frequency in past 1.5 months. * Had not had a migraine in several months prior to that. * Past 1.5 months has been 2-3 per week. * Endorses many changes and stress over this time period. Niece moved home to [facility] and is due fordelivery of baby any day. * Endorses Lupus has been flared as well with weather changes. Finishing 10 day course of prednisone today. * Also has pleurisy right now. Very fatigued all the time * Rizatriptan sometimes working to treat and sometimes not.Always decreases pain but doesn't always take away. Never has repeated in 2 hours. Will follow with Tylenol and not very helpful. * Has been on prednisone for lupus and pleurisy without headache benefit * These occur frontal and behind eyes, sometimes radiate to whole head. * Associated noise and light sensitivity. Nausea * Triggers are loud noises, loud sy music, bright lights, weather, stress. * Rizatriptan more helpful to abort than sumatriptan was. Less side effect. Does not have to lie downafter taking Rizatriptan. * Continues Zonisamide 300mg at HS for prevention * Anxiety and depression is moderately managed. * PRN Hydroxyzine for anxiety. Took once in past week. * Sleeps "a lot". very fatigued. * Tension headaches occurring less frequently * When tension headache occur These are sensitive to stress Tries warm bath and lays down. Has had 0 since last visit. * Admits to constant fatigue due to lupus. * Vaccine 2nd dose in august [place] [address] DO Work Phone: Chixe complaint Narrative - Reported* Neurologic Evaluation. * Yearly follow up migraine management [place] [address] DO Work Phone: Chiaj complaint Narrative - Reported* Neurologic Evaluation. * Follow up migraine management [place] [address] DO Work Phone: Evaluation note* Diagnosis Acute cough- Primary Sore throat Acute pharyngitis Viral URI with cough Acute upper respiratory infections of unspecified site [facility]* Diagnosis Encounter for screening for malignant neoplasm of colon documented in this encounter [facility] Work Phone: Evaluation note* Diagnosis Encounter for screening for malignant neoplasm of colon documented in this encounter [facility] Work Phone: Evaluation note* Diagnosis Benign essential hypertension- Primary Essential hypertension, benign Mixed hyperlipidemia Type 2 diabetes mellitus with hyperglycemia, without long-term current use of insulin ([facility]) Anemia, unspecified type Systemic lupus erythematosus, unspecified SLE type, unspecified organ involvement status ([facility]) documented in this encounter [facility] Work Phone: Evaluation note* Diagnosis Systemic lupus erythematosus, unspecified SLE type, unspecified organ involvement status ([facility]/HCC)- Primary Encounter for monitoring of hydroxychloroquine therapy Gastroesophageal reflux disease without esophagitis Esophageal reflux Type 2 diabetes mellitus with hyperglycemia, without long-term current use of insulin ([facility]) Situational depression Class 2 severe obesity due to excess calories with serious comorbidity and body mass index (BMI) of 35.0 to 35.9 in adult ([facility]) documented in this encounter [facility] Work Phone: Evaluation note* Diagnosis Benign essential hypertension- Primary Essential hypertension, benign Skin lesion of chest wall Screening for skin cancer Screening for malignant neoplasm of the skin Type 2 diabetes mellitus with hyperglycemia, without long-term current use of insulin (Multi) Left anterior knee pain documented in this encounter [facility] Work Phone: Evaluation note* Diagnosis Systemic lupus erythematosus, unspecified SLE type, unspecified organ involvement status (Multi)- Primary Encounter for monitoring of hydroxychloroquine therapy Gastroesophageal reflux disease without esophagitis Esophageal reflux Type 2 diabetes mellitus with hyperglycemia, without long-term current use of insulin (Multi) Situational depression Class 2 severe obesity due to excess calories with serious comorbidity and body mass index (BMI) of 35.0 to 35.9 in adult (Multi) Systemic lupus erythematosus, unspecified SLE type, unspecified organ involvement status (Multi)- Primary Encounter for monitoring of hydroxychloroquine therapy Memory loss Anxiety Anxiety state, unspecified Atypical chest pain Other chest pain Acute otitis media, unspecified otitis media type- Primary documented in this encounter [facility] Work Phone: Evaluation note* Diagnosis Systemic lupus erythematosus, unspecified SLE type, unspecified organ involvement status (Multi)- Primary Encounter for monitoring of hydroxychloroquine therapy Gastroesophageal reflux disease without esophagitis Esophageal reflux Type 2 diabetes mellitus with hyperglycemia, without long-term current use of insulin Situational depression Class 2 severe obesity due to excess calories with serious comorbidity and body mass index (BMI) of 35.0 to 35.9 in adult Systemic lupus erythematosus, unspecified SLE type, unspecified organ involvement status (Multi)- Primary Encounter for monitoring of hydroxychloroquine therapy Memory loss Anxiety Anxiety state, unspecified Atypical chest pain Other chest pain Mixed hyperlipidemia- Primary Benign essential hypertension Essential hypertension, benign Type 2 diabetes mellitus with hyperglycemia, without long-term current use of insulin Situational depression Anxiety Anxiety state, unspecified documented in this encounter [facility] Work Phone: Evaluation note* Diagnosis Bronchitis Bronchitis, not specified as acute or chronic [facility] Bacterial sinusitis- Primary Unspecified sinusitis (chronic) Bronchitis Bronchitis, not specified as acute or chronic [facility] Diagnosis Systemic lupus erythematosus, unspecified SLE type, unspecified organ involvement status (Multi)- Primary Encounter for monitoring of hydroxychloroquine therapy Gastroesophageal reflux disease without esophagitis Esophageal reflux Type 2 diabetes mellitus with hyperglycemia, without long-term current use of insulin Situational depression Class 2 severe obesity due to excess calories with serious comorbidity and body mass index (BMI) of 35.0 to 35.9 in adult Systemic lupus erythematosus, unspecified SLE type, unspecified organ involvement status (Multi)- Primary Encounter for monitoring of hydroxychloroquine therapy Memory loss Anxiety Anxiety state, unspecified Atypical chest pain Other chest pain Systemic lupus erythematosus, unspecified SLE type, unspecified organ involvement status (Multi)- Primary Encounter for monitoring of hydroxychloroquine therapy documented in this encounter [facility] Work Phone: Evaluation note* Diagnosis Systemic lupus erythematosus, unspecified SLE type, unspecified organ involvement status (Multi)- Primary Encounter for monitoring of hydroxychloroquine therapy Gastroesophageal reflux disease without esophagitis Esophageal reflux Type 2 diabetes mellitus with hyperglycemia, without long-term current use of insulin Situational depression Class 2 severe obesity due to excess calories with serious comorbidity and body mass index (BMI) of 35.0 to 35.9 in adult Systemic lupus erythematosus, unspecified SLE type, unspecified organ involvement status (Multi)- Primary Encounter for monitoring of hydroxychloroquine therapy Memory loss Anxiety Anxiety state, unspecified Atypical chest pain Other chest pain Systemic lupus erythematosus, unspecified SLE type, unspecified organ involvement status (Multi)- Primary Encounter for monitoring of hydroxychloroquine therapy Type 2 diabetes mellitus with hyperglycemia, without long-term current use of insulin- Primary Postsplenectomy thrombocytosis Systemic lupus erythematosus, unspecified SLE type, unspecified organ involvement status (Multi) Nausea and vomiting, unspecified vomiting type Benign essential hypertension Essential hypertension, benign Leukocytosis, unspecified type documented in this encounter [facility] Work Phone: Evaluation note* Diagnosis Systemic lupus erythematosus, unspecified SLE type, unspecified organ involvement status (Multi)- Primary Encounter for monitoring of hydroxychloroquine therapy Gastroesophageal reflux disease without esophagitis Esophageal reflux Type 2 diabetes mellitus with hyperglycemia, without long-term current use of insulin Situational depression Class 2 severe obesity due to excess calories with serious comorbidity and body mass index (BMI) of 35.0 to 35.9 in adult Systemic lupus erythematosus, unspecified SLE type, unspecified organ involvement status (Multi)- Primary Encounter for monitoring of hydroxychloroquine therapy Memory loss Anxiety Anxiety state, unspecified Atypical chest pain Other chest pain Systemic lupus erythematosus, unspecified SLE type, unspecified organ involvement status (Multi)- Primary Encounter for monitoring of hydroxychloroquine therapy Type 2 diabetes mellitus with hyperglycemia, without long-term current use of insulin- Primary Stage 3b chronic kidney disease (Multi) Leukocytosis, unspecified type documented in this encounter [facility] Work Phone: Evaluation note* Diagnosis Systemic lupus erythematosus, unspecified SLE type, unspecified organ involvement status (Multi)- Primary Encounter for monitoring of hydroxychloroquine therapy Gastroesophageal reflux disease without esophagitis Esophageal reflux Type 2 diabetes mellitus with hyperglycemia, without long-term current use of insulin Situational depression Class 2 severe obesity due to excess calories with serious comorbidity and body mass index (BMI) of 35.0 to 35.9 in adult Systemic lupus erythematosus, unspecified SLE type, unspecified organ involvement status (Multi)- Primary Encounter for monitoring of hydroxychloroquine therapy Memory loss Anxiety Anxiety state, unspecified Atypical chest pain Other chest pain Systemic lupus erythematosus, unspecified SLE type, unspecified organ involvement status (Multi)- Primary Encounter for monitoring of hydroxychloroquine therapy Visit for screening mammogram documented in this encounter [facility] Work Phone: History of Present illness Narrative* The patient is being seen for follow-up of systemic lupus erythematosus. * Interval Events: Patient has more symptoms. She has generalized malaise and has noted some pain in her chest when she takes a deep breath. She does not notice any congestion. She is under some stressat home which may be contributing to her symptoms. * Associated symptoms: myalgia. * Medications: the patient is adherent to her medication regimen, but she denies medication side effects. [facility] Work Phone: History of Present illness Narrative* The patient is being seen for follow-up of systemic lupus erythematosus. * Interval Events: lupus has been stable. Pt is looking to buy a new house No new symptoms . * Associated symptoms: myalgia. * Medications: the patient is adherent to her medication regimen, but she denies medication side effects. [employer] [facility] Work Phone: History of Present illness Narrative* The patient is being seen for follow-up of systemic lupus erythematosus. * Interval Events: some stress--notes more of a rash. Overall is doing ok . * Associated symptoms: myalgia. * Medications: the patient is adherent to her medication regimen, but she denies medication side effects. [employer] [facility] Work Phone: history of Present illness Narrative* Doing well on current medications. * Fasting for labs. * Does not check her blood sugar at home. * She would like to get Prevnar and Shingrix vaccines. [employer] [facility] Work Phone: history of Present illness Narrative* The patient is being seen for follow-up of systemic lupus erythematosus. * Interval Events: lupus has been stable. No joint pain or rashes. Has had some abdominal pain and was in ED---to see PCP for further evaluation . * Associated symptoms: myalgia. * Medications: the patient is adherent to her medication regimen, but she denies medication side effects. [employer] [facility] Work Phone: history of Present illness Narrative* 52-year-old female presents today with sore throat and productive cough with thick yellow sputum. * Daughter, grandson and friend had strep throat. States had strep test in ED done last week which was negative. Discharged to home on supportive measures. * Current symptoms sore throat, headache, body aches, chills, fevers over past few days up to 102, nausea, diarrhea (but states this is chronic)- usually has 2 bms per day this has not increased. * Denies vomiting- has been taking zofran. * COVID test not done. * Has been drinking fluids frequently. States this makes throat also feel better. * At home taking tylenol without much relief. [employer] [facility] Work Phone: history of Present illness Narrative* The patient is being seen for follow-up of systemic lupus erythematosus. * Interval Events: pt reports symptoms are stable Notes some wrist pain but hasn't noted any other symptoms . * Associated symptoms: myalgia. * Medications: the patient is adherent to her medication regimen, but she denies medication side effects. -[facility] Work Phone: Hospital course Narrative No data available for this section [facility] Reason for referral (narrative)* Consultation (Routine) - Authorized Specialty Diagnoses / Procedures Referred By Javier messina Referred To Contact Dermatology Diagnoses Skin lesion of chest wall Screening for skin cancer Giselle Boykin MD [address] [place] [address] Referral ID Status Reason Start Date Expiration Date Visits Requested Visits Authorized [id number] Authorized Specialty Services Required 09/19/2023 09/18/2024 1 1 [facility] Work Phone: Reason for visit Narrative* Imaging (Routine) - Authorized Specialty Diagnoses / Procedures Referred By Javier messina Referred To Contact Radiology Diagnoses Visit for screening mammogram Procedures BI mammo bilateral [place] [address] [place] [address] [address] [place] [id number] Phone: tel: Referral ID Status Reason Start Date Expiration Date Visits Requested Visits Authorized [id number] Authorized Perform Procedure 02/04/2024 02/03/2025 1 1 [facility] Work Phone: Assessments Diagnosis Recurrent incisional hernia Diagnosis Recurrent incisional hernia- Primary Diagnosis Abnormal uterine bleeding Unspecified disorder of menstruation and other abnormal bleeding from female genital tract Diagnosis Recurrent incisional hernia Advance Directives No Advanced Directives Records FoundDocuments on File Type Date Recorded 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 Advance Directives and Living Will Power of Rn L And D Latest Code Status on File Code Status Date Activated Date Inactivated Comments Full Code 02/18/2016 8:18 PM 02/19/2016 4:42 PM Full Code 02/18/2016 9:54 AM 02/18/2016 8:00 PM Latest Code Status on File Code Status Date Activated Date Inactivated Comments Full Code 12/24/2018 6:03 AM Full Code 02/18/2016 8:18 PM 02/19/2016 4:42 PM Documents on File Type Date Recorded 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 ACP-Advance Directive ACP-Power of Rn L And D Latest Code Status on File Code Status Date Activated Date Inactivated Comments Full Code 12/03/2019 5:23 PM Full Code 12/03/2019 10:45 AM 12/03/2019 4:40 PM Full Code 12/24/2018 6:03 AM 12/24/2018 1:43 PM Documents on File Type Date Recorded 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 Call the office to schedule your post-operative appointment with your surgeon for 1 1/2 weeks. ? If you still have bandages over your incisions, you may remove them in 1 day. May shower tomorrow. ? Place an ice pack over your incisions on and off (15min) at a time for the next 2 days. ? General guidelines for activity: Avoid strenuous activity or lifting anything heavier than 15 pounds. It is OK to be up and walking around. Going up and down stairs is also OK. Do what is comfortable: stop and rest when you feel tired. ? You will have pain medicine ordered. Take as directed. ? Do NOT drive for one day and while taking your narcotic pain medicine. ? Watch for signs of infection: Excessive warmth or bright redness around your incisions Leakage of bloody or cloudy fluid from you incisions Fever over 100.5 ? If you experience constipation o Increase your water intake. o Increase your activity; walking is best. o A stool softener or mild laxative may be necessary if you still have not had a bowel movement ; call the office for further instructions. o documented in this encounter* Instructions* Rene Gaines MD - 12/04/2019 Laparoscopic Hysterectomy: What to Expect at Home Your Recovery A hysterectomy is surgery to take out the uterus. In some cases, the ovaries and fallopian tubes also are taken out at the same time. You can expect to feel better and stronger each day, but you may need pain medicine for a week or two. You may get tired easily or have less energy than usual. The tiredness may last for several weeks after surgery. You will probably notice that your belly is swollen and puffy. This is common. The swelling will take several weeks to go down. You may take about 4 to 6 weeks to fully recover. It is important to avoid lifting while you are recovering so that you can heal. This care sheet gives you a general idea about how long it will take for you to recover. But each person recovers at a different pace. Follow the steps below to get better as quickly as possible. How can you care for yourself at home? Activity Rest when you feel tired. Be active. Walking is a good choice. Allow the area to heal. Don't move quickly or lift anything heavy until you are feeling better. You may shower 24 to 48 hours after surgery, if your doctor okays it. Pat the incision dry. Do not take a bath for the first 2 weeks, or until your doctor tells you it is okay. Ask your doctor when it is okay for you to have sex. Diet You can eat your normal diet. If your stomach is upset, try bland, low-fat foods like plain rice, broiled chicken, toast, and yogurt. If your bowel movements are not regular right after surgery, try to avoid constipation and straining. Drink plenty of water. Your doctor may suggest fiber, a stool softener, or a mild laxative. Medicines Your doctor will tell you if and when you can restart your medicines. He or she will also give you instructions about taking any new medicines. If you take aspirin or some other blood thinner, ask your doctor if and when to start taking it again. Make sure that you understand exactly what your doctor wants you to do. Be safe with medicines. Read and follow all instructions on the label. ? If the doctor gave you a prescription medicine for pain, take it as prescribed. ? If you are not taking a prescription pain medicine, ask your doctor if you can take an rltg-yur-ntivyol medicine. If your doctor prescribed antibiotics, take them as directed. Do not stop taking them just because you feel better. You need to take the full course of antibiotics. Incision care You may have stitches over the cuts (incisions) the doctor made in your belly. If you have strips of tape on the cut (incision) the doctor made, leave the tape on for a week or until it falls off. Wash the area daily with warm, soapy water, and pat it dry. Don't use hydrogen peroxide or alcohol.They can slow healing. You may cover the area with a gauze bandage if it oozes fluid or rubs against clothing. Change the bandage every day. Other instructions You may have some light vaginal bleeding. Wear sanitary pads if needed. Do not douche or use tampons. Don't have sex until the doctor says it is okay. Follow-up care is a baker part of your treatment and safety. Be sure to make and go to all appointments, and call your doctor if you are having problems. It's also a good idea to know your test resultsand keep a list of the medicines you take. When should you call for help? [id number] anytime you think you may need emergency care. For example, call if: You passed out (lost consciousness). You have chest pain, are short of breath, or cough up blood. Call your doctor now or seek immediate medical care if: You have pain that does not get better after you take pain medicine. You cannot pass stools or gas. You have vaginal discharge that has increased in amount or smells bad. You are sick to your stomach or cannot drink fluids. You have loose stitches, or your incision comes open. Bright red blood has soaked through the bandage over your incision. You have signs of infection, such as: ? Increased pain, swelling, warmth, or redness. ? Red streaks leading from the incision. ? Pus draining from the incision. ? A fever. You have bright red vaginal bleeding that soaks one or more pads in an hour, or you have large clots. You have signs of a blood clot in your leg (called a deep vein thrombosis), such as: ? Pain in your calf, back of the knee, thigh, or groin. ? Redness and swelling in your leg or groin. Watch closely for changes in your health, and be sure to contact your doctor if you have any problems. Where can you learn more? Go to [email or web address] and sign in to your [employer] account. Enter Q131 in the Search Health Information box to learn more about Laparoscopic Hysterectomy: What to Expect at Home. If you do not have an account, please click on the "Sign Up Now" link. Current as of: February 07, 2019 Content Version: 12. [employer]. Care instructions adapted under license by [employer]. If you have questions about a medical condition or this instruction, always ask your healthcare professional. [employer] disclaims any warranty or liability for your use of this information. documented in this encounter* Instructions* Zully Mccoy RN - 11/26/2019 PLEASE BE AWARE THAT VISITORS UNDER THE AGE OF 12 AND FOOD/DRINKS ARE NO LONGER PERMITTED IN THE SAME DAY SURGERY DEPARTMENT. IF YOU USE A CPAP MACHINE OR RESCUE INHALER AT HOME PLEASE BRING THESE ITEMS WITH YOU THE DAY OF SURGERY. MEDICATION INSTRUCTIONS PRIOR TO SURGERY PLEASE BRING PROVIDED LIST BACK WITH YOU THE DAY OF SURGERY WITH DATE/TIME LAST DOSE OF MEDICATIONSTAKEN. HOLD ALL VITAMINS FOR 24 HOURS PRIOR TO SURGERY. LAST DOSE WILL BE 11/30. HOLD LISINOPRIL AND METFORMIN THE MORNING OF SURGERY. ONLY MEDS NEED TO BE TAKEN AM OF SURGERY ARE METOPROLOL AND PLAQUENIL MAY TAKE TYLENOL UP UNTIL AM OF SURGERY IF NEEDED FOR PAIN During pre-admission testing appointment, patient instructed on the following To arrive 2 hours prior to scheduled surgery Upon arrival, stop in registration just past the main entrance and provide them with a photo id addis medical card if they have one After registration, come to the same day surgery department, stopping at the main desk They need to have made arrangements for a ride home following surgery and a phone number will need to be provided before going back to the operating room. If public transportation will be used after surgery, they are made aware that a responsible adult needs to accompany them. They need to make arrangements to have someone with them when they get home from surgery. Leave all jewelry, contacts and valuables at home Wear loose comfortable clothing to go home in Bring in the medication list provided for them and write in the date/time last dose was taken No food (including candy, gum and mints) the day of surgery They may have clear liquids ( water, black coffee/no liquid or powder creamer, clear tea, clear fruit juices/no pulp and carbonated beverages) up until 2 hours prior to surgery Do not drink alcohol, use recreational drugs or smoke/use nicotine products 24 hours prior to surgery. Encouraged to write down any questions they may have for the surgeon, anesthesiologist or any member of the surgical team, and to bring list of questions in with them To not shave the surgical site and to follow instructions provided on showering with the CHG solution During the pre-admission testing appointment, this nurse reviewed and provided patient with The taking care of yourself after surgery paper Billing information for anesthesia patients Preparing for your surgical procedure pamphlet After visit Summary with medication list and medication instructions The CHG solution and shower card with instruction. Pt encouraged to follow instructions on card Prior to end of PAT appointment, pt acknowledged understanding of information and instructions provided in preparation of upcoming surgery. * Attachments The following attachments cannot be sent through Care Everywhere. * Laparoscopic Hysterectomy: Post-op ([facility]) * Laparoscopic Hysterectomy: Pre-op ([facility]) documented in this encounter* Instructions* Zully Mccoy RN - 12/16/2018 PLEASE BE AWARE THAT VISITORS UNDER THE AGE OF 12 AND FOOD/DRINKS ARE NO LONGER PERMITTED IN THE SAME DAY SURGERY DEPARTMENT. IF YOU USE A CPAP MACHINE OR RESCUE INHALER AT HOME PLEASE BRING THESE ITEMS WITH YOU THE DAY OF SURGERY. MEDICATION INSTRUCTIONS PRIOR TO SURGERY PLEASE BRING PROVIDED LIST BACK WITH YOU THE DAY OF SURGERY WITH DATE/TIME LAST DOSE OF MEDICATIONSTAKEN. HOLD METFORMIN AND LISINOPRIL AM OF SURGERY. HOLD VITAMIN C AND VITAMIN B12 FOR 24 HOURS PRIOR TO SURGERY.12/22 WILL BE LAST DOSE MAY TAKE PLAQUENIL AND IRON AM OF SURGERY. PLEASE TAKE METOPROLOL / TOPROL XL AM OF SURGERY. During pre-admission testing appointment, patient instructed on the following To arrive 2 hours prior to scheduled surgery Upon arrival, stop in registration past the main entrance and provide them with a photo id and a medical card if they have one After registration, come to the same day surgery department, stopping at the main desk They need to have made arrangements for a ride home following surgery and a phone number will need to be provided before going back to the operating room. If public transportation is being used, pt made aware that they need to have a responsible adult accompany them. They need to make arrangements for someone to stay with them after they get home from surgery. Leave all jewelry, contacts and valuables at home Wear loose comfortable clothing to go home in Which medications need to be held and taken prior to surgery Bring in the medication list provided for them and write in the date/time last dose was taken No food (including candy, gum and mints) the day of surgery They may have clear liquids ( water, black coffee/no liquid or powder creamer, clear tea, clear fruit juices/no pulp and carbonated beverages) up until 2 hours prior to surgery Do not drink alcohol, use recreational drugs or smoke/use nicotine products 24 hours prior to surgery. Encouraged to write down any questions they may have for the surgeon, anesthesiologist or any member of the surgical team, and to bring list of questions in with them During the pre-admission testing appointment, this nurse reviewed and provided patient with The taking care of yourself after surgery paper Billing information for anesthesia patients Preparing for your surgical procedure pamphlet After visit Summary with medication list and medication instructions Prior to end of PAT appointment, pt acknowledged understanding of information and instructions provided in preparation of upcoming surgery. documented in this encounter History of Present Illness * Lizeth Lanier RN - 12/24/2018 10:50 AM EDT Phase II indicated, pt awake and talking, VS stable, pt dressed and ambulated to wheelchair withoutdifficulty, home going instructions reviewed with patient, verbal understanding demonstrated and opportunity given for questions * Lizeth Lanier RN - 12/24/2018 9:49 AM EDT PATIENT RECEIVED FROM OR VIA CART. SPONT RESP. WITH LAUNDRY OPERATOR IN ATTENDANCE. PLACED ON MONITOR. MONITOR ALARMS ON IN PACU. TYA=[id number] documented in this encounter* Rene Gaines MD - 12/04/2019 10:14 AM EDT Pt doing well. Pain controlled. Tolerating regular diet. Ambulatory. Minimal bleeding. Urinating without difficulty. vss afebrile Alert nad Normal resp Normal heart rate abd soft nontender inc c/d/i Ext nontender no edema bilaterally A/P: POD#1 tlh lysis of adhesions recovering well Dc home today Fu 2 wks office * Latonya Kolb, VAMSHI - 12/03/2019 4:41 PM EDT To 1 east via stretcher on 3 l of o2 Diane rn given report pt rests comfortable easily arouses documented in this encounter Family History No Family History Records Found Sibling Name Dates Details Family history of hypertensi on(V17.49, Z82.49) Status:Active aunt Name Dates Details Family history of diabetes m ellitus(V18.0, Z83.3) Status:Active Family history of malignant neoplasm of kidney(V16.51, Z80.51) Status:Active Family history of Sjogren's disease(V17.89, Z82.69) Status:Active Mother Name Dates Details Family history of coronary a rtery disease(V17.3, Z82.49) Status:Active Father Name Dates Details Family history of chronic ob structive pulmonary disease(V17.6, Z82.5) Status:Active Family history of colonic di verticulitis(V18.59, Z83.79) Status:Active Sister Name Dates Details Family history of hemochroma tosis(V18.19, Z83.49) Status:Active Sibling Name Dates Details Family history of hypertensi on(V17.49, Z82.49) Status:Active aunt Name Dates Details Family history of diabetes m ellitus(V18.0, Z83.3) Status:Active Family history of malignant neoplasm of kidney(V16.51, Z80.51) Status:Active Family history of Sjogren's disease(V17.89, Z82.69) Status:Active Mother Name Dates Details Family history of coronary a rtery disease(V17.3, Z82.49) Status:Active Father Name Dates Details Family history of chronic ob structive pulmonary disease(V17.6, Z82.5) Status:Active Family history of colonic di verticulitis(V18.59, Z83.79) Status:Active Sister Name Dates Details Family history of hemochroma tosis(V18.19, Z83.49) Status:Active Sibling Name Dates Details Family history of hypertensi on(V17.49, Z82.49) Status:Active aunt Name Dates Details Family history of diabetes m ellitus(V18.0, Z83.3) Status:Active Family history of malignant neoplasm of kidney(V16.51, Z80.51) Status:Active Family history of Sjogren's disease(V17.89, Z82.69) Status:Active Mother Name Dates Details Family history of coronary a rtery disease(V17.3, Z82.49) Status:Active Father Name Dates Details Family history of chronic ob structive pulmonary disease(V17.6, Z82.5) Status:Active Family history of colonic di verticulitis(V18.59, Z83.79) Status:Active Sister Name Dates Details Family history of hemochroma tosis(V18.19, Z83.49) Status:Active Sibling Name Dates Details Family history of hypertensi on(V17.49, Z82.49) Status:Active aunt Name Dates Details Family history of diabetes m ellitus(V18.0, Z83.3) Status:Active Family history of malignant neoplasm of kidney(V16.51, Z80.51) Status:Active Family history of Sjogren's disease(V17.89, Z82.69) Status:Active Mother Name Dates Details Family history of coronary a rtery disease(V17.3, Z82.49) Status:Active Father Name Dates Details Family history of chronic ob structive pulmonary disease(V17.6, Z82.5) Status:Active Family history of colonic di verticulitis(V18.59, Z83.79) Status:Active Sister Name Dates Details Family history of hemochroma tosis(V18.19, Z83.49) Status:Active Sibling Name Dates Details Family history of hypertensi on(V17.49, Z82.49) Status:Active aunt Name Dates Details Family history of diabetes m ellitus(V18.0, Z83.3) Status:Active Family history of malignant neoplasm of kidney(V16.51, Z80.51) Status:Active Family history of Sjogren's disease(V17.89, Z82.69) Status:Active Mother Name Dates Details Family history of coronary a rtery disease(V17.3, Z82.49) Status:Active Father Name Dates Details Family history of chronic ob structive pulmonary disease(V17.6, Z82.5) Status:Active Family history of colonic di verticulitis(V18.59, Z83.79) Status:Active Sister Name Dates Details Family history of hemochroma tosis(V18.19, Z83.49) Status:Active Unknown Family Member Name Dates Details Family history of chronic ob structive pulmonary disease: Father(V17.6, Z82.5) Status:Active Family history of coronary a rtery disease: Mother(V17.3, Z82.49) Status:Active Family history of hypertensi on: Sibling(V17.49, Z82.49) Status:Active Family history of diabetes m ellitus: Aunt(V18.0, Z83.3) Status:Active Family history of malignant neoplasm of kidney: Aunt(V16.51, Z80.51) Status:Active Family history of Sjogren's disease: Aunt(V17.89, Z82.69) Status:Active Family history of colonic di verticulitis: Father(V18.59, Z83.79) Status:Active Family history of hemochroma tosis: Sister(V18.19, Z83.49) Status:Active Unknown Family Member Name Dates Details Family history of chronic ob structive pulmonary disease: Father(V17.6, Z82.5) Status:Active Family history of coronary a rtery disease: Mother(V17.3, Z82.49) Status:Active Family history of hypertensi on: Sibling(V17.49, Z82.49) Status:Active Family history of diabetes m ellitus: Aunt(V18.0, Z83.3) Status:Active Family history of malignant neoplasm of kidney: Aunt(V16.51, Z80.51) Status:Active Family history of Sjogren's disease: Aunt(V17.89, Z82.69) Status:Active Family history of colonic di verticulitis: Father(V18.59, Z83.79) Status:Active Family history of hemochroma tosis: Sister(V18.19, Z83.49) Status:Active Unknown Family Member Name Dates Details Family history of chronic ob structive pulmonary disease: Father(V17.6, Z82.5) Status:Active Family history of coronary a rtery disease: Mother(V17.3, Z82.49) Status:Active Family history of hypertensi on: Sibling(V17.49, Z82.49) Status:Active Family history of diabetes m ellitus: Aunt(V18.0, Z83.3) Status:Active Family history of malignant neoplasm of kidney: Aunt(V16.51, Z80.51) Status:Active Family history of Sjogren's disease: Aunt(V17.89, Z82.69) Status:Active Family history of colonic di verticulitis: Father(V18.59, Z83.79) Status:Active Family history of hemochroma tosis: Sister(V18.19, Z83.49) Status:Active Unknown Family Member Name Dates Details Family history of chronic ob structive pulmonary disease: Father(V17.6, Z82.5) Status:Active Family history of coronary a rtery disease: Mother(V17.3, Z82.49) Status:Active Family history of hypertensi on: Sibling(V17.49, Z82.49) Status:Active Family history of diabetes m ellitus: Aunt(V18.0, Z83.3) Status:Active Family history of malignant neoplasm of kidney: Aunt(V16.51, Z80.51) Status:Active Family history of Sjogren's disease: Aunt(V17.89, Z82.69) Status:Active Family history of colonic di verticulitis: Father(V18.59, Z83.79) Status:Active Family history of hemochroma tosis: Sister(V18.19, Z83.49) Status:Active Unknown Family Member Name Dates Details Family history of chronic ob structive pulmonary disease: Father(V17.6, Z82.5) Status:Active Family history of coronary a rtery disease: Mother(V17.3, Z82.49) Status:Active Family history of hypertensi on: Sibling(V17.49, Z82.49) Status:Active Family history of diabetes m ellitus: Aunt(V18.0, Z83.3) Status:Active Family history of malignant neoplasm of kidney: Aunt(V16.51, Z80.51) Status:Active Family history of Sjogren's disease: Aunt(V17.89, Z82.69) Status:Active Family history of colonic di verticulitis: Father(V18.59, Z83.79) Status:Active Family history of hemochroma tosis: Sister(V18.19, Z83.49) Status:Active Unknown Family Member Name Dates Details Family history of chronic ob structive pulmonary disease: Father(V17.6, Z82.5) Status:Active Family history of coronary a rtery disease: Mother(V17.3, Z82.49) Status:Active Family history of hypertensi on: Sibling(V17.49, Z82.49) Status:Active Family history of diabetes m ellitus: Aunt(V18.0, Z83.3) Status:Active Family history of malignant neoplasm of kidney: Aunt(V16.51, Z80.51) Status:Active Family history of Sjogren's disease: Aunt(V17.89, Z82.69) Status:Active Family history of colonic di verticulitis: Father(V18.59, Z83.79) Status:Active Family history of hemochroma tosis: Sister(V18.19, Z83.49) Status:Active Unknown Family Member Name Dates Details Family history of chronic ob structive pulmonary disease: Father(V17.6, Z82.5) Status:Active Family history of coronary a rtery disease: Mother(V17.3, Z82.49) Status:Active Family history of hypertensi on: Sibling(V17.49, Z82.49) Status:Active Family history of diabetes m ellitus: Aunt(V18.0, Z83.3) Status:Active Family history of malignant neoplasm of kidney: Aunt(V16.51, Z80.51) Status:Active Family history of Sjogren's disease: Aunt(V17.89, Z82.69) Status:Active Family history of colonic di verticulitis: Father(V18.59, Z83.79) Status:Active Family history of hemochroma tosis: Sister(V18.19, Z83.49) Status:Active Unknown Family Member Name Dates Details Family history of chronic ob structive pulmonary disease: Father(V17.6, Z82.5) Status:Active Family history of coronary a rtery disease: Mother(V17.3, Z82.49) Status:Active Family history of hypertensi on: Sibling(V17.49, Z82.49) Status:Active Family history of diabetes m ellitus: Aunt(V18.0, Z83.3) Status:Active Family history of malignant neoplasm of kidney: Aunt(V16.51, Z80.51) Status:Active Family history of Sjogren's disease: Aunt(V17.89, Z82.69) Status:Active Family history of colonic di verticulitis: Father(V18.59, Z83.79) Status:Active Family history of hemochroma tosis: Sister(V18.19, Z83.49) Status:Active Unknown Family Member Name Dates Details Family history of colonic di verticulitis: Father(V18.59, Z83.79) Status:Active Family history of Sjogren's disease: Aunt(V17.89, Z82.69) Status:Active Family history of malignant neoplasm of kidney: Aunt(V16.51, Z80.51) Status:Active Family history of diabetes m ellitus: Aunt(V18.0, Z83.3) Status:Active Family history of hypertensi on: Sibling(V17.49, Z82.49) Status:Active Family history of coronary a rtery disease: Mother(V17.3, Z82.49) Status:Active Family history of chronic ob structive pulmonary disease: Father(V17.6, Z82.5) Status:Active Family history of hemochroma tosis: Sister(V18.19, Z83.49) Status:Active Unknown Family Member Name Dates Details Family history of malignant neoplasm of kidney: Aunt(V16.51, Z80.51) Status:Active Family history of diabetes m ellitus: Aunt(V18.0, Z83.3) Status:Active Family history of hypertensi on: Sibling(V17.49, Z82.49) Status:Active Family history of coronary a rtery disease: Mother(V17.3, Z82.49) Status:Active Family history of chronic ob structive pulmonary disease: Father(V17.6, Z82.5) Status:Active Family history of Sjogren's disease: Aunt(V17.89, Z82.69) Status:Active Family history of hemochroma tosis: Sister(V18.19, Z83.49) Status:Active Family history of colonic di verticulitis: Father(V18.59, Z83.79) Status:Active Unknown Family Member Name Dates Details Family history of chronic ob structive pulmonary disease: Father(V17.6, Z82.5) Status:Active Family history of coronary a rtery disease: Mother(V17.3, Z82.49) Status:Active Family history of hypertensi on: Sibling(V17.49, Z82.49) Status:Active Family history of diabetes m ellitus: Aunt(V18.0, Z83.3) Status:Active Family history of malignant neoplasm of kidney: Aunt(V16.51, Z80.51) Status:Active Family history of Sjogren's disease: Aunt(V17.89, Z82.69) Status:Active Family history of colonic di verticulitis: Father(V18.59, Z83.79) Status:Active Family history of hemochroma tosis: Sister(V18.19, Z83.49) Status:Active Unknown Family Member Name Dates Details Family history of chronic ob structive pulmonary disease: Father(V17.6, Z82.5) Status:Active Family history of coronary a rtery disease: Mother(V17.3, Z82.49) Status:Active Family history of hypertensi on: Sibling(V17.49, Z82.49) Status:Active Family history of diabetes m ellitus: Aunt(V18.0, Z83.3) Status:Active Family history of malignant neoplasm of kidney: Aunt(V16.51, Z80.51) Status:Active Family history of Sjogren's disease: Aunt(V17.89, Z82.69) Status:Active Family history of colonic di verticulitis: Father(V18.59, Z83.79) Status:Active Family history of hemochroma tosis: Sister(V18.19, Z83.49) Status:Active Unknown Family Member Name Dates Details Family history of chronic ob structive pulmonary disease: Father(V17.6, Z82.5) Status:Active Family history of coronary a rtery disease: Mother(V17.3, Z82.49) Status:Active Family history of hypertensi on: Sibling(V17.49, Z82.49) Status:Active Family history of diabetes m ellitus: Aunt(V18.0, Z83.3) Status:Active Family history of malignant neoplasm of kidney: Aunt(V16.51, Z80.51) Status:Active Family history of Sjogren's disease: Aunt(V17.89, Z82.69) Status:Active Family history of colonic di verticulitis: Father(V18.59, Z83.79) Status:Active Family history of hemochroma tosis: Sister(V18.19, Z83.49) Status:Active Unknown Family Member Name Dates Details Family history of chronic ob structive pulmonary disease: Father(V17.6, Z82.5) Status:Active Family history of coronary a rtery disease: Mother(V17.3, Z82.49) Status:Active Family history of hypertensi on: Sibling(V17.49, Z82.49) Status:Active Family history of diabetes m ellitus: Aunt(V18.0, Z83.3) Status:Active Family history of malignant neoplasm of kidney: Aunt(V16.51, Z80.51) Status:Active Family history of colonic di verticulitis: Father(V18.59, Z83.79) Status:Active Family history of hemochroma tosis: Sister(V18.19, Z83.49) Status:Active Family history of Sjogren's disease: Aunt(V17.89, Z82.69) Status:Active Unknown Family Member Name Dates Details Family history of chronic ob structive pulmonary disease: Father(V17.6, Z82.5) Status:Active Family history of coronary a rtery disease: Mother(V17.3, Z82.49) Status:Active Family history of hypertensi on: Sibling(V17.49, Z82.49) Status:Active Family history of diabetes m ellitus: Aunt(V18.0, Z83.3) Status:Active Family history of malignant neoplasm of kidney: Aunt(V16.51, Z80.51) Status:Active Family history of Sjogren's disease: Aunt(V17.89, Z82.69) Status:Active Family history of hemochroma tosis: Sister(V18.19, Z83.49) Status:Active Family history of colonic di verticulitis: Father(V18.59, Z83.79) Status:Active Unknown Family Member Name Dates Details Family history of chronic ob structive pulmonary disease: Father(V17.6, Z82.5) Status:Active Family history of coronary a rtery disease: Mother(V17.3, Z82.49) Status:Active Family history of hypertensi on: Sibling(V17.49, Z82.49) Status:Active Family history of diabetes m ellitus: Aunt(V18.0, Z83.3) Status:Active Family history of malignant neoplasm of kidney: Aunt(V16.51, Z80.51) Status:Active Family history of Sjogren's disease: Aunt(V17.89, Z82.69) Status:Active Family history of colonic di verticulitis: Father(V18.59, Z83.79) Status:Active Family history of hemochroma tosis: Sister(V18.19, Z83.49) Status:Active Unknown Family Member Name Dates Details Family history of chronic ob structive pulmonary disease: Father(V17.6, Z82.5) Status:Active Family history of coronary a rtery disease: Mother(V17.3, Z82.49) Status:Active Family history of hypertensi on: Sibling(V17.49, Z82.49) Status:Active Family history of diabetes m ellitus: Aunt(V18.0, Z83.3) Status:Active Family history of malignant neoplasm of kidney: Aunt(V16.51, Z80.51) Status:Active Family history of Sjogren's disease: Aunt(V17.89, Z82.69) Status:Active Family history of colonic di verticulitis: Father(V18.59, Z83.79) Status:Active Family history of hemochroma tosis: Sister(V18.19, Z83.49) Status:Active Unknown Family Member Name Dates Details Family history of chronic ob structive pulmonary disease: Father(V17.6, Z82.5) Status:Active Family history of coronary a rtery disease: Mother(V17.3, Z82.49) Status:Active Family history of hypertensi on: Sibling(V17.49, Z82.49) Status:Active Family history of diabetes m ellitus: Aunt(V18.0, Z83.3) Status:Active Family history of malignant neoplasm of kidney: Aunt(V16.51, Z80.51) Status:Active Family history of Sjogren's disease: Aunt(V17.89, Z82.69) Status:Active Family history of colonic di verticulitis: Father(V18.59, Z83.79) Status:Active Family history of hemochroma tosis: Sister(V18.19, Z83.49) Status:Active Unknown Family Member Name Dates Details Family history of chronic ob structive pulmonary disease: Father(V17.6, Z82.5) Status:Active Family history of coronary a rtery disease: Mother(V17.3, Z82.49) Status:Active Family history of hypertensi on: Sibling(V17.49, Z82.49) Status:Active Family history of diabetes m ellitus: Aunt(V18.0, Z83.3) Status:Active Family history of malignant neoplasm of kidney: Aunt(V16.51, Z80.51) Status:Active Family history of Sjogren's disease: Aunt(V17.89, Z82.69) Status:Active Family history of colonic di verticulitis: Father(V18.59, Z83.79) Status:Active Family history of hemochroma tosis: Sister(V18.19, Z83.49) Status:Active Unknown Family Member Name Dates Details Family history of chronic ob structive pulmonary disease: Father(V17.6, Z82.5) Status:Active Family history of coronary a rtery disease: Mother(V17.3, Z82.49) Status:Active Family history of hypertensi on: Sibling(V17.49, Z82.49) Status:Active Family history of diabetes m ellitus: Aunt(V18.0, Z83.3) Status:Active Family history of malignant neoplasm of kidney: Aunt(V16.51, Z80.51) Status:Active Family history of Sjogren's disease: Aunt(V17.89, Z82.69) Status:Active Family history of colonic di verticulitis: Father(V18.59, Z83.79) Status:Active Family history of hemochroma tosis: Sister(V18.19, Z83.49) Status:Active Unknown Family Member Name Dates Details Family history of chronic ob structive pulmonary disease: Father(V17.6, Z82.5) Status:Active Family history of coronary a rtery disease: Mother(V17.3, Z82.49) Status:Active Family history of hypertensi on: Sibling(V17.49, Z82.49) Status:Active Family history of diabetes m ellitus: Aunt(V18.0, Z83.3) Status:Active Family history of malignant neoplasm of kidney: Aunt(V16.51, Z80.51) Status:Active Family history of colonic di verticulitis: Father(V18.59, Z83.79) Status:Active Family history of hemochroma tosis: Sister(V18.19, Z83.49) Status:Active Family history of Sjogren's disease: Aunt(V17.89, Z82.69) Status:Active Unknown Family Member Name Dates Details Family history of chronic ob structive pulmonary disease: Father(V17.6, Z82.5) Status:Active Family history of coronary a rtery disease: Mother(V17.3, Z82.49) Status:Active Family history of hypertensi on: Sibling(V17.49, Z82.49) Status:Active Family history of diabetes m ellitus: Aunt(V18.0, Z83.3) Status:Active Family history of malignant neoplasm of kidney: Aunt(V16.51, Z80.51) Status:Active Family history of Sjogren's disease: Aunt(V17.89, Z82.69) Status:Active Family history of colonic di verticulitis: Father(V18.59, Z83.79) Status:Active Family history of hemochroma tosis: Sister(V18.19, Z83.49) Status:Active Unknown Family Member Name Dates Details Family history of chronic ob structive pulmonary disease: Father(V17.6, Z82.5) Status:Active Family history of coronary a rtery disease: Mother(V17.3, Z82.49) Status:Active Family history of hypertensi on: Sibling(V17.49, Z82.49) Status:Active Family history of diabetes m ellitus: Aunt(V18.0, Z83.3) Status:Active Family history of malignant neoplasm of kidney: Aunt(V16.51, Z80.51) Status:Active Family history of Sjogren's disease: Aunt(V17.89, Z82.69) Status:Active Family history of colonic di verticulitis: Father(V18.59, Z83.79) Status:Active Family history of hemochroma tosis: Sister(V18.19, Z83.49) Status:Active Unknown Family Member Name Dates Details Family history of chronic ob structive pulmonary disease: Father(V17.6, Z82.5) Status:Active Family history of coronary a rtery disease: Mother(V17.3, Z82.49) Status:Active Family history of hypertensi on: Sibling(V17.49, Z82.49) Status:Active Family history of diabetes m ellitus: Aunt(V18.0, Z83.3) Status:Active Family history of malignant neoplasm of kidney: Aunt(V16.51, Z80.51) Status:Active Family history of Sjogren's disease: Aunt(V17.89, Z82.69) Status:Active Family history of colonic di verticulitis: Father(V18.59, Z83.79) Status:Active Family history of hemochroma tosis: Sister(V18.19, Z83.49) Status:Active Unknown Family Member Name Dates Details Family history of chronic ob structive pulmonary disease: Father(V17.6, Z82.5) Status:Active Family history of coronary a rtery disease: Mother(V17.3, Z82.49) Status:Active Family history of hypertensi on: Sibling(V17.49, Z82.49) Status:Active Family history of diabetes m ellitus: Aunt(V18.0, Z83.3) Status:Active Family history of malignant neoplasm of kidney: Aunt(V16.51, Z80.51) Status:Active Family history of Sjogren's disease: Aunt(V17.89, Z82.69) Status:Active Family history of colonic di verticulitis: Father(V18.59, Z83.79) Status:Active Family history of hemochroma tosis: Sister(V18.19, Z83.49) Status:Active Unknown Family Member Name Dates Details Family history of chronic ob structive pulmonary disease: Father(V17.6, Z82.5) Status:Active Family history of coronary a rtery disease: Mother(V17.3, Z82.49) Status:Active Family history of hypertensi on: Sibling(V17.49, Z82.49) Status:Active Family history of diabetes m ellitus: Aunt(V18.0, Z83.3) Status:Active Family history of malignant neoplasm of kidney: Aunt(V16.51, Z80.51) Status:Active Family history of Sjogren's disease: Aunt(V17.89, Z82.69) Status:Active Family history of colonic di verticulitis: Father(V18.59, Z83.79) Status:Active Family history of hemochroma tosis: Sister(V18.19, Z83.49) Status:Active Unknown Family Member Name Dates Details Family history of chronic ob structive pulmonary disease: Father(V17.6, Z82.5) Status:Active Family history of coronary a rtery disease: Mother(V17.3, Z82.49) Status:Active Family history of hypertensi on: Sibling(V17.49, Z82.49) Status:Active Family history of diabetes m ellitus: Aunt(V18.0, Z83.3) Status:Active Family history of malignant neoplasm of kidney: Aunt(V16.51, Z80.51) Status:Active Family history of Sjogren's disease: Aunt(V17.89, Z82.69) Status:Active Family history of colonic di verticulitis: Father(V18.59, Z83.79) Status:Active Family history of hemochroma tosis: Sister(V18.19, Z83.49) Status:Active Unknown Family Member Name Dates Details Family history of chronic ob structive pulmonary disease: Father(V17.6, Z82.5) Status:Active Family history of coronary a rtery disease: Mother(V17.3, Z82.49) Status:Active Family history of hypertensi on: Sibling(V17.49, Z82.49) Status:Active Family history of diabetes m ellitus: Aunt(V18.0, Z83.3) Status:Active Family history of malignant neoplasm of kidney: Aunt(V16.51, Z80.51) Status:Active Family history of colonic di verticulitis: Father(V18.59, Z83.79) Status:Active Family history of hemochroma tosis: Sister(V18.19, Z83.49) Status:Active Family history of Sjogren's disease: Aunt(V17.89, Z82.69) Status:Active Unknown Family Member Name Dates Details Family history of chronic ob structive pulmonary disease: Father(V17.6, Z82.5) Status:Active Family history of coronary a rtery disease: Mother(V17.3, Z82.49) Status:Active Family history of hypertensi on: Sibling(V17.49, Z82.49) Status:Active Family history of diabetes m ellitus: Aunt(V18.0, Z83.3) Status:Active Family history of malignant neoplasm of kidney: Aunt(V16.51, Z80.51) Status:Active Family history of Sjogren's disease: Aunt(V17.89, Z82.69) Status:Active Family history of colonic di verticulitis: Father(V18.59, Z83.79) Status:Active Family history of hemochroma tosis: Sister(V18.19, Z83.49) Status:Active Unknown Family Member Name Dates Details Family history of chronic ob structive pulmonary disease: Father(V17.6, Z82.5) Status:Active Family history of coronary a rtery disease: Mother(V17.3, Z82.49) Status:Active Family history of hypertensi on: Sibling(V17.49, Z82.49) Status:Active Family history of diabetes m ellitus: Aunt(V18.0, Z83.3) Status:Active Family history of malignant neoplasm of kidney: Aunt(V16.51, Z80.51) Status:Active Family history of colonic di verticulitis: Father(V18.59, Z83.79) Status:Active Family history of hemochroma tosis: Sister(V18.19, Z83.49) Status:Active Family history of Sjogren's disease: Aunt(V17.89, Z82.69) Status:Active Unknown Family Member Name Dates Details Family history of chronic ob structive pulmonary disease: Father(V17.6, Z82.5) Status:Active Family history of coronary a rtery disease: Mother(V17.3, Z82.49) Status:Active Family history of hypertensi on: Sibling(V17.49, Z82.49) Status:Active Family history of diabetes m ellitus: Aunt(V18.0, Z83.3) Status:Active Family history of malignant neoplasm of kidney: Aunt(V16.51, Z80.51) Status:Active Family history of Sjogren's disease: Aunt(V17.89, Z82.69) Status:Active Family history of colonic di verticulitis: Father(V18.59, Z83.79) Status:Active Family history of hemochroma tosis: Sister(V18.19, Z83.49) Status:Active Unknown Family Member Name Dates Details Family history of chronic ob structive pulmonary disease: Father(V17.6, Z82.5) Status:Active Family history of coronary a rtery disease: Mother(V17.3, Z82.49) Status:Active Family history of hypertensi on: Sibling(V17.49, Z82.49) Status:Active Family history of diabetes m ellitus: Aunt(V18.0, Z83.3) Status:Active Family history of malignant neoplasm of kidney: Aunt(V16.51, Z80.51) Status:Active Family history of Sjogren's disease: Aunt(V17.89, Z82.69) Status:Active Family history of colonic di verticulitis: Father(V18.59, Z83.79) Status:Active Family history of hemochroma tosis: Sister(V18.19, Z83.49) Status:Active Unknown Family Member Name Dates Details Family history of chronic ob structive pulmonary disease: Father(V17.6, Z82.5) Status:Active Family history of coronary a rtery disease: Mother(V17.3, Z82.49) Status:Active Family history of hypertensi on: Sibling(V17.49, Z82.49) Status:Active Family history of diabetes m ellitus: Aunt(V18.0, Z83.3) Status:Active Family history of malignant neoplasm of kidney: Aunt(V16.51, Z80.51) Status:Active Family history of Sjogren's disease: Aunt(V17.89, Z82.69) Status:Active Family history of colonic di verticulitis: Father(V18.59, Z83.79) Status:Active Family history of hemochroma tosis: Sister(V18.19, Z83.49) Status:Active Unknown Family Member Name Dates Details Family history of chronic ob structive pulmonary disease: Father(V17.6, Z82.5) Status:Active Family history of coronary a rtery disease: Mother(V17.3, Z82.49) Status:Active Family history of hypertensi on: Sibling(V17.49, Z82.49) Status:Active Family history of diabetes m ellitus: Aunt(V18.0, Z83.3) Status:Active Family history of malignant neoplasm of kidney: Aunt(V16.51, Z80.51) Status:Active Family history of Sjogren's disease: Aunt(V17.89, Z82.69) Status:Active Family history of colonic di verticulitis: Father(V18.59, Z83.79) Status:Active Family history of hemochroma tosis: Sister(V18.19, Z83.49) Status:Active Unknown Family Member Name Dates Details Family history of chronic ob structive pulmonary disease: Father(V17.6, Z82.5) Status:Active Family history of coronary a rtery disease: Mother(V17.3, Z82.49) Status:Active Family history of hypertensi on: Sibling(V17.49, Z82.49) Status:Active Family history of diabetes m ellitus: Aunt(V18.0, Z83.3) Status:Active Family history of malignant neoplasm of kidney: Aunt(V16.51, Z80.51) Status:Active Family history of Sjogren's disease: Aunt(V17.89, Z82.69) Status:Active Family history of colonic di verticulitis: Father(V18.59, Z83.79) Status:Active Family history of hemochroma tosis: Sister(V18.19, Z83.49) Status:Active Unknown Family Member Name Dates Details Family history of chronic ob structive pulmonary disease: Father(V17.6, Z82.5) Status:Active Family history of coronary a rtery disease: Mother(V17.3, Z82.49) Status:Active Family history of hypertensi on: Sibling(V17.49, Z82.49) Status:Active Family history of diabetes m ellitus: Aunt(V18.0, Z83.3) Status:Active Family history of malignant neoplasm of kidney: Aunt(V16.51, Z80.51) Status:Active Family history of colonic di verticulitis: Father(V18.59, Z83.79) Status:Active Family history of hemochroma tosis: Sister(V18.19, Z83.49) Status:Active Family history of Sjogren's disease: Aunt(V17.89, Z82.69) Status:Active Unknown Family Member Name Dates Details Family history of chronic ob structive pulmonary disease: Father(V17.6, Z82.5) Status:Active Family history of coronary a rtery disease: Mother(V17.3, Z82.49) Status:Active Family history of hypertensi on: Sibling(V17.49, Z82.49) Status:Active Family history of diabetes m ellitus: Aunt(V18.0, Z83.3) Status:Active Family history of malignant neoplasm of kidney: Aunt(V16.51, Z80.51) Status:Active Family history of Sjogren's disease: Aunt(V17.89, Z82.69) Status:Active Family history of colonic di verticulitis: Father(V18.59, Z83.79) Status:Active Family history of hemochroma tosis: Sister(V18.19, Z83.49) Status:Active Unknown Family Member Name Dates Details Family history of chronic ob structive pulmonary disease: Father(V17.6, Z82.5) Status:Active Family history of coronary a rtery disease: Mother(V17.3, Z82.49) Status:Active Family history of hypertensi on: Sibling(V17.49, Z82.49) Status:Active Family history of diabetes m ellitus: Aunt(V18.0, Z83.3) Status:Active Family history of malignant neoplasm of kidney: Aunt(V16.51, Z80.51) Status:Active Family history of Sjogren's disease: Aunt(V17.89, Z82.69) Status:Active Family history of colonic di verticulitis: Father(V18.59, Z83.79) Status:Active Family history of hemochroma tosis: Sister(V18.19, Z83.49) Status:Active Unknown Family Member Name Dates Details Family history of chronic ob structive pulmonary disease: Father(V17.6, Z82.5) Status:Active Family history of coronary a rtery disease: Mother(V17.3, Z82.49) Status:Active Family history of hypertensi on: Sibling(V17.49, Z82.49) Status:Active Family history of diabetes m ellitus: Aunt(V18.0, Z83.3) Status:Active Family history of malignant neoplasm of kidney: Aunt(V16.51, Z80.51) Status:Active Family history of Sjogren's disease: Aunt(V17.89, Z82.69) Status:Active Family history of colonic di verticulitis: Father(V18.59, Z83.79) Status:Active Family history of hemochroma tosis: Sister(V18.19, Z83.49) Status:Active Unknown Family Member Name Dates Details Family history of chronic ob structive pulmonary disease: Father(V17.6, Z82.5) Status:Active Family history of coronary a rtery disease: Mother(V17.3, Z82.49) Status:Active Family history of hypertensi on: Sibling(V17.49, Z82.49) Status:Active Family history of diabetes m ellitus: Aunt(V18.0, Z83.3) Status:Active Family history of malignant neoplasm of kidney: Aunt(V16.51, Z80.51) Status:Active Family history of colonic di verticulitis: Father(V18.59, Z83.79) Status:Active Family history of hemochroma tosis: Sister(V18.19, Z83.49) Status:Active Family history of Sjogren's disease: Aunt(V17.89, Z82.69) Status:Active Unknown Family Member Name Dates Details Family history of chronic ob structive pulmonary disease: Father(V17.6, Z82.5) Status:Active Family history of coronary a rtery disease: Mother(V17.3, Z82.49) Status:Active Family history of hypertensi on: Sibling(V17.49, Z82.49) Status:Active Family history of diabetes m ellitus: Aunt(V18.0, Z83.3) Status:Active Family history of malignant neoplasm of kidney: Aunt(V16.51, Z80.51) Status:Active Family history of Sjogren's disease: Aunt(V17.89, Z82.69) Status:Active Family history of colonic di verticulitis: Father(V18.59, Z83.79) Status:Active Family history of hemochroma tosis: Sister(V18.19, Z83.49) Status:Active Unknown Family Member Name Dates Details Family history of chronic ob structive pulmonary disease: Father(V17.6, Z82.5) Status:Active Family history of coronary a rtery disease: Mother(V17.3, Z82.49) Status:Active Family history of hypertensi on: Sibling(V17.49, Z82.49) Status:Active Family history of diabetes m ellitus: Aunt(V18.0, Z83.3) Status:Active Family history of malignant neoplasm of kidney: Aunt(V16.51, Z80.51) Status:Active Family history of Sjogren's disease: Aunt(V17.89, Z82.69) Status:Active Family history of colonic di verticulitis: Father(V18.59, Z83.79) Status:Active Family history of hemochroma tosis: Sister(V18.19, Z83.49) Status:Active Summary Purpose Reason for Referral Status Reason Specialty Diagnoses / Procedures Referre d By Contact Referred To Contact Open Radiology Diagnoses Recurrent incisional hernia Procedures CT Abdomen Pelvis W Contrast Lenin Weaver, WAREHOUSE OPERATIONS MANAGER - AIRPORT DUTY MANAGER [address] [place] [address] Specialty Diagnoses / Procedures Referred By Javier messina Referred To Contact Gastroenterology Diagnoses Encounter for screening for malignant neoplasm of colon Procedures Colonoscopy Screening NC COLONOSCOPY FLX DX W/COLLJ SPEC WHEN PFRMD NC COLON CA SCRN NOT HI RSK IND NC COLORECTAL SCRN; HI RISK IND NC COLONOSCOPY W/BIOPSY SINGLE/MULTIPLE NC COLSC FLX W/RMVL OF TUMOR POLYP LESION SNARE TQ NC COLSC FLX W/REMOVAL LESION [place] [id number] [place] [facility] Department of Medicine-Gastroenterol [place] [phone] Referral ID Status Reason Start Date Expiration Date V isits Requested Visits Authorized [id number] Authorized 01/10/2023 07/09/2023 1 1 Chief Complaint Lupus 6 month F/Uhere for follow up HTN and DMLupus 6 month F/Uhere for follow up HTN and DMpt is here for 6 month F/U lupushere for follow up HTN, DM and cholesterolpt here for Lupus follow up-c/o stomach hurting more had to go to ER, did a CT, multiple hypodensities in liver-was advised to f/u with Boykin and get MRIhere for follow up hospitalhere for follow up hospitalpossible strep, coughing up mucouslupus follow up Additional Source Comments INFORMATION SOURCE (unrecogn ized section and content) DATE CREATED AUTHOR 12/24/[address] [facility] DATE CREATED AUTHOR AUTHOR'S ORGANIZ ATION 05/14/2020 [facility] [place] DATE CREATED AUTHOR AUTHOR'S ORGANIZ ATION 01/03/2022 [facility] DATE CREATED AUTHOR AUTHOR'S ORGANIZ ATION 11/02/2022 [facility] DATE CREATED AUTHOR AUTHOR'S ORGANIZ ATION 11/02/2022 [employer] DATE CREATED AUTHOR AUTHOR'S ORGANIZ ATION 11/30/2023 [facility] ([place] DATE CREATED AUTHOR AUTHOR'S ORGANIZ ATION 01/30/2024 [facility] DATE CREATED AUTHOR AUTHOR'S ORGANIZ ATION 05/01/2024 [facility] DATE CREATED AUTHOR AUTHOR'S ORGANIZ ATION 05/13/2024 [facility] DATE CREATED AUTHOR AUTHOR'S ORGANIZ ATION 08/26/2024 [facility] DATE CREATED AUTHOR AUTHOR'S ORGANIZ ATION 08/26/2024 [facility] DATE CREATED AUTHOR AUTHOR'S ORGANIZ ATION 10/13/2024 [facility] Reason for Visit (unrecogniz ed section and content) Status Reason Specialty Diagnoses / Procedures Referre d By Contact Referred To Contact Open Radiology Diagnoses Recurrent incisional hernia Procedures CT Abdomen Pelvis W Contrast Lenin Weaver, SWATI - AIRPORT DUTY MANAGER [address] [place] [address] Specialty Diagnoses / Procedures Referred By Contac t Referred To Contact Gastroenterology Diagnoses Encounter for screening for malignant neoplasm of colon Procedures Colonoscopy Screening NC COLONOSCOPY FLX DX W/COLLJ SPEC WHEN PFRMD NC COLON CA SCRN NOT HI RSK IND NC COLORECTAL SCRN; HI RISK IND NC COLONOSCOPY W/BIOPSY SINGLE/MULTIPLE NC COLSC FLX W/RMVL OF TUMOR POLYP LESION SNARE TQ NC COLSC FLX W/REMOVAL LESION [place] [address] [address] [facility] Department [place] [address] Referral ID Status Reason Start Date Expiration Date V isits Requested Visits Authorized [id number] Authorized 01/10/2023 07/09/2023 1 1 Reason Comments Hypertension Diabetes Reason Comments Follow-up Lupus Reason Comments Follow-up Follow up for HTN, a nd DMRecent Lt knee issues Reason Comments Earache Left ear pain X-star elena yesterday morning. Pt states her ear is sore- feels like there is "water" in it-just aches Reason Comments Diabetes Hypertension Reason Comments Cough Cough x 1 weekVomiti ng, diarrhea and sore throat x 2-3 days Reason Comments Lupus Reason Comments Diabetes Source Comments (unrecognize d section and content) In the event this informatio n is protected by the Federal Confidentiality of Alcohol and Drug Abuse Patient Records regulations: The Federal rules restrict any use of the information to criminally investigate or prosecute any alcohol or drug abuse patient.[facility] Hospital[facility] the event this information is protected by the Federal Confidentiality of Alcohol and Drug Abuse Patient Records regulations: The Federal rules restrict any use of the information to criminally investigate or prosecute any alcohol or drug abuse patient.[facility] Hospital[facility] the event this information is protected by the Federal Confidentiality of Alcohol and Drug Abuse Patient Records regulations: The Federal rules restrict any use of the information to criminally investigate or prosecute any alcohol or drug abuse patient.[facility] Care Teams (unrecognized sec tion and content) Ticket Seller Relationship Specialty Start Date End Date Giselle Boykin MD [address] [place] [id number] PCP - General 03/24/19 Giselle Boykin MD [address] [place] [address] [address] [place], [place] [phone] PCP - [place] PCP 04/02/22 Ticket Seller Relationship Specialty Start Date End Date Giselle Boykin MD PCP - General 03/24/19 Giselle Boykin MD PCP - [place] [employer] PCP 04/02/22 Ticket Seller Relationship Specialty Start Date End Date Giselle Boykin MD [facility] [address] [place] [address] [phone] PCP - [place] [employer] PCP 04/02/22 Giselle Boykin MD [address] [place] [address] [address] [place] [phone] PCP - General Internal Medicine 03/20/23 Ticket Seller Relationship Specialty Start Date End Date Giselle Boykin MD [facility] [address] [place] [address] [phone] PCP - [place] [employer] PCP 04/02/22 Giselle Boykin MD [address] [place] [address] [address] [place] [address] [phone] PCP - General Internal Medicine 03/20/23 Maura Lange MD [address] [place] [address] Rd [address] [place] [address] [phone] Referring Physician Rheumatology 05/03/23 Ticket Seller Relationship Specialty Start Date End Date Giselle Boykin MD [facility] [address] [place] [phone] PCP - [place] [employer] PCP 04/02/22 Giselle Boykin MD [facility] [address] [place] [address] [phone] PCP - General Internal Medicine 03/20/23 Maura Lange MD [address] [place] [phone] Referring Physician Rheumatology 05/03/23 Ticket Seller Relationship Specialty Start Date End Date Giselle Boykin MD [address] [place] [address] [address] [place] [phone] PCP - [place] [employer] PCP 04/02/22 Gsielle Boykin MD [address] [place] [address] [address] [place] [address] [phone] PCP - General Internal Medicine 03/20/23 Maura Lange MD [address] [place] [address] Referring Physician Rheumatology 05/03/23 Ticket Seller Relationship Specialty Start Date End Date Giselle Boykin MD [address] [place] [address] PCP - [place] PCP 04/02/22 Giselle Boykin MD [address] [place] [address] [address] [place] [address] PCP - General Internal Medicine 03/20/23 Maura Lange MD [address] [place] [phone] Referring Physician Rheumatology 05/03/23 Ticket Seller Relationship Specialty Start Date End Date Giselle Boykin MD [address] [place] [phone] PCP - General Internal Medicine 04/29/24 Ticket Seller Relationship Specialty [place] [address] [place] [address] [phone] PCP - General Internal Medicine 04/29/24 Ticket Seller Relationship Specialty Start Date End Date Giselle Boykin MD [address] [place] [address] [phone] PCP - [employer] PCP 04/02/22 Giselle Boykin MD [address] [place] [address] [address] [place] [address] [phone] PCP - General Internal Medicine 03/20/23 Maura Lange MD [address] [place] [address] Referring Physician Rheumatology 05/03/23 Ticket Seller Relationship Specialty Start Date End Date Giselle Boykin MD [address] [place] [address] PCP - [place] PCP 04/02/22 Giselle Boykin MD [address] [place] [address] [address] [place] [address] [phone] PCP - General Internal Medicine 03/20/23 Maura Lange MD [address] [place] [phone] Referring Physician Rheumatology 05/03/23 Ticket Seller Relationship Specialty Start Date End Date Giselle Boykin MD [address] [place] [address] [phone] PCP - [place] [employer] PCP 04/02/22 Giselle Boykin MD [address] [place] [address] [address] [place] [address] [phone] PCP - General Internal Medicine 03/20/23 Maura Lange MD [address] [place] [address] Referring Physician Rheumatology 05/03/23 Ticket Seller Relationship Specialty Start Date End Date Giselle Boykin MD [address] [place] [address] PCP - [place] [employer] PCP 04/02/22 Giselle Boykin MD [address] [place] [address] PCP - General Internal Medicine 03/20/23 Maura Lange MD [address] [place] [address] Referring Physician Rheumatology 05/03/23 FOR RECORDS PERTAINING TO PATIENTS WHO ARE OR HAVE BEEN ENROLLED IN A CHEMICAL DEPENDENCY/SUBSTANCEABUSE PROGRAM, SOME INFORMATION MAY BE OMITTED. This clinical summary was aggregated from multiple sources. Caution should be exercised in using it in the provision of clinical care. This summary normalizes information from multiple sources, and as a consequence, information in this document may materially change the coding, format and clinical context of patient data. In addition, data may be omitted in some cases. CLINICAL DECISIONS SHOULD BE BASED ON THE PRIMARY CLINICAL RECORDS. [employer] provides no warranty or guarantee of the accuracy or completeness of information in this document.
[2024-10-19 16:07] LABS: Hematocrit 36.9 % (37-47); Hemoglobin 12.6 g/dL (12.0-15.0); Immature Granulocytes Count 0.380 X10^3/uL (0.0-0.0); Mean Corp Hgb Conc 34.1 g/dL (32-36); Mean Corpuscular Volume 87.0 fL (81-99); Mean Platelet Vol. 10.0 fl (6.2-12.0); NRBC Flagged by Analyzer 0.1 % (0-5); POSITIVE DIFFERENTIAL YES; Platelet Count 430 K/mm3 (150-450); RBC Distribution Width CV 13.8 % (11.6-14.6); RBC Distribution Width SD 43.6 fl (35.1-43.9); Red Blood Count 4.24 M/mm3 (4.2-5.4); White Blood Count 27.8 K/mm3 (4.4-11.0)
[2024-10-19 16:18] LABS: Differential Indicated SCAN CRITERIA MET
[2024-10-19 16:20] LABS: Mucous, Urine 0 SEEN /hpf (<or=2+)
[2024-10-19 16:20] LABS: Partial Thromboplast Time 31.3 Seconds (24.1-36.2); Prothrombin Time (Protime)PT. 14.1 SECONDS (11.7-14.9)
[2024-10-19 16:25] LABS: Color, Urine Yellow (Yellow); Glucose, Dipstick Normal (Normal); Ketone-Dipstick Negative (Negative); Leukocyte Esterase-Dipstick Negative /ul (Negative); Nitrite-Dipstick Negative (Negative); Occult Blood-Urine 10 /ul (Negative); Protein-Dipstick 100 mg/dl (Negative); Specific Gravity, Urine 1.020 (1.002-1.030); Urine Bilirubin Dipstick Negative (Negative)
[2024-10-19 16:45] LABS: AST(SGOT) 40 U/L (<=31); Alanine Aminotransfer ALT/SGPT 13 U/L (<=34); Albumin, Serum 3.5 g/dL (3.5-5.0); Alkaline Phosphatase 150 U/L (35-104); Anion Gap 15 (5-15); BUN 12 mg/dL (4-19); BUN/Creat Ratio 7.7 RATIO (10-20); Calcium,Total 9.3 mg/dL (7.6-11.0); Carbon Dioxide 19.8 mmol/L (21.0-32.0); Chloride 98 mmol/L (98-108); Estimated Creatinine Clearance 46.07 ml/min (50-250); Globulin 3.8 g/dL (2.2-4.2); Glucose 171 mg/dL (70-99); Potassium 5.1 mmol/L (3.3-5.1)
[2024-10-19 16:46] VITALS: BP 133/88; PULSE 101; RESP 18; TEMP 38.7; O2SAT 92
[2024-10-19 17:06] LABS: Squamous Epithelial Cells - UA 0-5 SEEN /hpf (5-10)
[2024-10-19 17:18] LABS: Fine Granular Cast- Urine > 100 SEEN /lpf (0-5)
[2024-10-19 17:19] LABS: Red Blood Cells-Urine 0-5 SEEN /hpf (0-5)
--- OUTSIDE RECORDS SUMMARY | 2024-10-19 18:25 | XMS RPT_ITS | CCD ---
Author Organization [facility] [employer]iniSyaz Care Team Providers Care It Applications Analyst Name Role Phone Giselle Boykin E Primary Care Provider Maura Lange Unavailable Unavailable Boykin, Giselle Unavailable Unavailable Olivia Schmitz Unavailable Unavailable Fenohr, Emili Unavailable Unavailable Boykin, Giselle E Unavailable Unavailable Fenohr, Emili M Unavailable Unavailable Boykin, Giselle E Primary Care Provider Alejandro, Giselle E Unavailable Unavailable Unavailable Unavailable Primary Care Provider Unavailabl [...] BOYKIN, GISELLE E Primary Care Unavailable MAURA LANEG Attending Unavailable BOYKIN, GISELLE E Primary Care Unavailable YASMINE LOPEZ Attending Unavailable BOYKIN, GISELEL E Primary Care Unavailable BOYKIN, GISELLE E [...] sources) Bacitracin; Translations: [bacitracin] Drug Allergy Other [place] [address] Work Phone: Opioid Agonists (8 sources) HYDROmorphone; Translations: [Dilaudid TABS] Drug Allergy Vomiting, Hives [facility] Sulfamethoxazole / Trimethoprim (7 sources) Sulfamethoxazole / Trimethoprim; Translations: [Bactrim] Drug Allergy Other [place] [address] Work Phone: Unclassified (2 sources) Artificial sweetners Food allergy Migraine (disorder) [facility] (10 sources) HYDROmorphone; Translations: [HYDROMORPHONE HCL] Drug Allergy 10-21-19 16 Nausea And Vomiting, Rash, Vomiting [place], [place] (20 sources) Sulfamethoxazole / Trimethoprim; Translations: [Bactrim] Drug Allergy 05-20-19 17 Other (See Comments), Other: See Comments, Other [place], [place] (20 sources) Bacitracin; Translations: [bacitracin] Drug Allergy 12-08-19 23 Other, Other: See Comments [facility] (20 sources) HYDROmorphone; Translations: [Dilaudid TABS] Drug Allergy 12-08-19 23 Vomiting, Hives, Other [facility] Work Phone: (5 sources) Sulfamethoxazole / Trimethoprim Drug Allergy Other [facility] 170 DO Work Phone: (16 sources) Morphinan opioid; Translations: [OPIOIDS - MORPHINE ANALOGUES] Propensity to adverse reactions 03-30-20 04 Rash, Vomiting, Nausea And Vomiting, Nausea/vomitin g [facility] (14 sources) liraglutide; Translations: [LIRAGLUTIDE] Drug Allergy 03-20-20 23 [facility] Work Phone: (2 sources) HYDROmorphone; Translations: [HYDROMORPHONE] Drug Allergy 12-08-19 [facility] 3 Repository Medications Current Medications Medication Drug [...] (PERCOCET) 5-325 MG per tablet 1 tablet [id number] 200 actuat albuterol 0.09 mg/actuat metered dose [...] Start: 04-23-2017 take 8 tablets by mo [facility] once daily Escitalopram Oxalate 20 MG Oral Tablet Once daily Quantity: 90 Refills: 3 Ordered: 07-Nov-2021 Giselle Boykin MD Start : 23-Apr-2017 Active Start: 04-23-2017 take 7 tablets by mo [facility] once daily Escitalopram Oxalate 20 MG Oral [...] nasal spray Indications: Bacterial sinusitis Use 1 Lynn in each nostril two times a day. [...] daily. 100 each 3 12/05/2023 Active levonorgestrel 0.803966 mg/hr intrauterine system (1 source) Progestin, Progestin-containin [...] Active Start: 10-21-2014 take [address] tablets [address] [facility] once daily Lisinopril 20 MG Oral Tablet [...] mg/ml oral solution (2 sources) Phenothiazine, Uncompetitive E-ooedmf-A-aspartat e Receptor Antagonist, Sigma-1 Agonist Start: 08-30-2022 [...] every week Vitamin D (Ergocalciferol) 1.25 MG (20636 UT) Oral Capsule TAKE 1 CAPSULE WEEKLY. [...] 04-29-2023 Episodic Other aftercare (2 sources) Other skilled nursing (current) drug therapy; Translations: [Other skilled nursing (current) drug therapy] Onset: 04-29-2023 Episodic Other [...] SCREENING TOMOSYNTHESIS; 10/09/2024 10:11 am ACCESSION NUMBER(S): [id number] ORDERING CLINICIAN: GISELLE BOYKIN INDICATION: Screening. COMPARISON: [...] any future breast imaging appointments, please call [phone]). MACRO: None Signed by: Aranza Carter 10/10/2024 3:41 PM Dictation workstation: [id number] [facility] BASIC METABOLIC PANEL WITH A NION GAPon 08-20-2024 Calcium [Mass/Vol] 9.5 mg/dL Normal 8.6-10.4 [facility] Comment on above: Order Comment: FASTI NG:YES FASTING: YES Performed By: #### 4 443, 15969 #### [facility] [address], [address] [place], [place] [id number] [employer] Worker: Giovanni Rubio MD Chloride [Moles/Vol] 102 mmol/L Normal 98-110 [facility] Comment on above: Order Comment: FASTI NG:YES FASTING: YES Performed By: #### 4 392, 11883 #### [facility] [address], [address] [place], [place] [id number] [employer] Worker: Giovanni Rubio MD CO2 [Moles/Vol] 25 mmol/L Normal 20-32 [facility] Comment on above: Order Comment: FASTI NG:YES FASTING: YES Performed By: #### 6 399, 73513 #### [facility] [address], [address] [place] [address] [employer] Worker: Giovanni Rubio MD Creatinine [Mass/Vol] 1.12 mg/dL High 0.50-1.03 [facility] Comment on above: Order Comment: FASTI NG:YES FASTING: YES Performed By: #### 6 399, 79277 #### [facility] [address], [address] [place] [address] [employer] Worker: Giovanni Rubio MD ELECTROLYTE BALANCE 11 mmol/L (calc) Normal 7-17 [facility] Comment on above: Order Comment: FASTI NG:YES FASTING: YES Performed By: #### 6 399, 91789 #### [facility] [address], [address] [place] [address] [employer] Worker: Giovanni Rubio MD GFR/1.73 sq M.predicted among non-blacks MDRD (S/P/Bld) [Vol rate/Area] 59 mL/min/{1.73_m2} Low > OR = 60 [facility] Comment on above: Order Comment: FASTI NG:YES FASTING: YES Performed By: #### 6 399, 77755 #### [facility] [address], [address] [place] [address] [employer] Worker: Giovanni Rubio MD Glucose [Mass/Vol] 81 mg/dL Normal 65-99 [facility] Comment on above: Order Comment: FASTI NG:YES FASTING: YES Result Comment: Fasting reference interval Performed By: #### 6 399, 58408 #### [facility] [address], [address] [place] [address] [employer] Worker: Giovanni Rubio MD Potassium [Moles/Vol] 5.2 mmol/L Normal 3.5-5.3 [facility] Comment on above: Order Comment: FASTI NG:YES FASTING: YES Performed By: #### 6 399, 26774 #### [facility] [place] [address] [employer] Worker: Giovanni Rubio MD Sodium [Moles/Vol] 138 mmol/L Normal 135-146 [facility] Comment on above: Order Comment: FASTI NG:YES FASTING: YES Performed By: #### 6 399, 19158 #### [facility] of [address], [address] [place] [address] [employer] Worker: Giovanni Rubio MD Urea nitrogen [Mass/Vol] 14 mg/dL Normal 7- [facility] Comment on above: Order Comment: FASTI NG:YES FASTING: YES Performed By: #### 6 399, 12268 #### [facility] of [address], [address] [place] [address] [employer] Worker: Giovanni Rubio MD Urea nitrogen/Creatinine [Mass ratio] 13 mg/mg Normal - [facility] Comment on above: Order Comment: FASTI NG:YES FASTING: YES Performed By: #### 6 399, 95185 #### [facility] of [address], [address] [place] [address] [employer] Worker: Giovanni Rubio MD CBC (INCLUDES DIFF/PLT)on Basophils (Bld) [#/Vol] 0.17 10*3/uL Normal 0-200 [facility] Comment on above: Performed By: #### 6 399, 10608 #### [facility] of [address], [address] [place] [address] [employer] Worker: Giovanni Rubio MD Basophils/100 WBC (Bld) 1.7 % Normal [facility] Comment on above: Performed By: #### 6 399, 62140 #### [facility] of [address], [address] [place] [address] [employer] Worker: Giovanni Rubio MD Eosinophils (Bld) [#/Vol] 0.55 10*3/uL High 15-500 [facility] Comment on above: Performed By: #### 6 399, 79506 #### [facility] [place] [address] [employer] Worker: Giovanni Rubio MD Eosinophils/100 WBC (Bld) 5.5 % Normal [facility] Comment on above: Performed By: #### 6 399, 42468 #### [facility] of [place] [address] [employer] Worker: Giovanni Rubio MD Erythrocyte distribution width (RBC) [Ratio] 14.7 % Normal 11.0-15.0 [facility] Comment on above: Performed By: #### 6 399, 95666 #### [facility] of [place] [address] [employer] Worker: Giovanni Rubio MD Hematocrit (Bld) [Volume fraction] 42.6 % Normal 35.0-45.0 [facility] Comment on above: Performed By: #### 6 399, 44423 #### [facility] of [place] [address] [employer] Worker: Giovanni Rubio MD Hemoglobin (Bld) [Mass/Vol] 13.5 g/dL Normal 11.7-15.5 [facility] Comment on above: Performed By: #### 6 399, 39694 #### [facility] of [place] [address] [employer] Worker: Giovanni Rubio MD Lymphocytes (Bld) [#/Vol] 2.28 10*3/uL Normal 850-3900 [facility] Comment on above: Performed By: #### 6 399, 82398 #### [facility] of [place] [address] [employer] Worker: Giovanni Rubio MD Lymphocytes/100 WBC (Bld) 22.8 % Normal [facility] Comment on above: Performed By: #### 6 399, 58949 #### [facility] of [place] [address] [employer] Worker: Giovanni Rubio MD MCH (RBC) [Entitic mass] 29.3 pg Normal 27.0-33.0 [facility] Comment on above: Performed By: #### 6 399, 83319 #### [facility] [place] [address] [employer] Worker: Giovanni Rubio MD MCHC (RBC) [Mass/Vol] 31.7 [...] clinical condition. Performed By: #### 6 399, 48697 #### [facility] [place] [address] [employer] Worker: Giovanni Rubio MD MCV (RBC) [Entitic vol] 92.6 fL Normal 80.0-100.0 [facility] Comment on above: Performed By: #### 6 399, 45880 #### [facility] [place] [address] [employer] Worker: Giovanni Rubio MD Monocytes (Bld) [#/Vol] 0.89 10*3/uL Normal 200-950 [facility] Comment on above: Performed By: #### 6 399, 53217 #### [facility] of [place] [address] [employer] Worker: Giovanni Rubio MD Monocytes/100 WBC (Bld) 8.9 % Normal [facility] Comment on above: Performed By: #### 6 399, 85437 #### [facility] of [place] [address] [employer] Worker: Giovanni Rubio MD Neutrophils (Bld) [#/Vol] 6.11 10*3/uL Normal 3922-1122 [facility] Comment on above: Performed By: #### 6 399, 82433 #### [facility] of [place] [address] [employer] Worker: Giovanni Rubio MD Neutrophils/100 WBC (Bld) 61.1 % Normal [facility] Comment on above: Performed By: #### 6 399, 51419 #### [facility] of [place] [address] [employer] Worker: Giovanni Rubio MD Platelet mean volume (Bld) [Entitic vol] 10.7 fL Normal 7.5-12.5 [facility] Comment on above: Performed By: #### 6 399, 16681 #### [facility] of [place] [address] [employer] Worker: Giovanni Rubio MD Platelets (Bld) [#/Vol] 481 10*3/uL High 140-400 [facility] Comment on above: Performed By: #### 6 399, 05073 #### [facility] of [place] [address] [employer] Worker: Giovanni Rubio MD RBC (Bld) [#/Vol] 4.60 10*6/uL Normal 3.80-5.10 [facility] Comment on above: Performed By: #### 6 399, 45935 #### [facility] of [place] [address] [employer] Worker: Giovanni Rubio MD WBC (Bld) [#/Vol] 10.0 10*3/uL Normal 3.8-10.8 [facility] Comment on above: Performed By: #### 6 399, 23868 #### [facility] of [place] [address] [employer] Worker: Giovanni Rubio MD HEMOGLOBIN A1c WITH eAGon eAG (mmol/L) 7.0 mmol/L Normal [facility] Comment on above: Performed By: #### 6 399, 98281 #### [facility] of [place] [address] [employer] Worker: Giovanni Rubio MD HbA1c (Bld) [Mass fraction] [...] for children. Performed By: #### 6 399, 19546 #### [facility] [address], [address] [place] [address] [employer] Worker: Giovanni Rubio MD Magnesium [Mass/Vol] 126 mg/dL Normal [facility] Comment on above: Performed By: #### 6 399, 81884 #### [facility] [address], [address] [place] [address] [employer] Worker: Giovanni Rubio MD ANTI DNAon 05-12-2024 ANTI-DNA Negative Normal [facility] Comment on above: Result Comment: This test is a screen, if positive refer to the quantitative test. Performed By: #### 1 14989 #### [facility] [address] [place] [address] [employer] Worker: Manjinder Butler MD COMP C3on 05-09-2024 Complement C3 138 mg/dL Normal 90-180 [facility] Comment on above: Result Comment: REFE RENCE INTERVAL: Complement Component 3 Access complete set of age- and/or gender-specific reference intervals for this test in the [facility] Test Directory (SeeOn). Performed By: [facility] [address] [place] [address] Manager Of Allied Health Services: Yair Gallego MD, PhD CLIA Number: [id number] Performed By: #### 1 99417, [id number] #### [facility] [address] [place] [address] [employer] Worker: Manjinder Butler MD COMP C4on 05-09-2024 Complement C4 46 mg/dL High 10-40 [facility] Comment on above: Result Comment: REFE RENCE INTERVAL: Complement Component 4 Access complete set of age- and/or gender-specific reference intervals for this test in the [facility] Test Directory (SeeOn). Performed By: [facility] [address] [place] [address] Manager Of Allied Health Services: Yair Gallego MD, PhD CLIA Number: [id number] Performed By: #### 1 97253, 274739 #### [facility] [address] [place], [place] [id number] [employer] Worker: Manjinder Butler MD ALBUMIN, RANDOM URINE W/CREA TININEon 05-08-2024 ALBUMIN, URINE <0.2 Normal See Note: [facility] Comment on above: Result Comment: Refe rence Range: Reference Range Not established Performed By: #### 6 517 #### [facility] [address], [address] [place] [address] [employer] Worker: Giovanni Rubio MD ALBUMIN/CREATININE RATIO, RANDOM URINE [...] By: #### 6 517 #### [facility] [address], [address] [place] [address] [employer] Worker: Giovanni Rubio MD Creatinine (U) [Mass/Vol] 143 mg/dL Normal 20-275 [facility] Comment on above: Performed By: #### 6 517 #### [facility] [address], [address] [place] [address] [employer] Worker: Giovanni Rubio MD CRP QUANTon 05-07-2024 C-Reactive Protein, Quantitative <0.5 Normal 0.0-0.5 [facility] Comment on above: Result Comment: ?- C RP testing for cardiovascular risk assessment should not be performed while there is an indication of active infection, systemic inflammation, or trauma. Performed By: #### 6 [id number], [id number] #### [facility] [address] [place] [address] [employer] Worker: Manjinder Butler MD POCT glycosylated hemoglobin (Hb A1C) manually resultedon 05-07-2024 HbA1c (Bld) [Mass fraction] 6.3 % 4.2 - 6.5 % [facility] Work Phone: [facility] Work Phone: SED RATEon 05-07-2024 Sed Rate Westergren 28 mm/hr Normal 0-30 [facility] Comment on above: Performed By: #### 6 149226, 562343 #### [facility] [address] [place] [address] [employer] Worker: Manjinder Butler MD CBC (INCLUDES DIFF/PLT)on Basophils (Bld) [#/Vol] 0.156 10*3/uL Normal 0-200 [facility] Comment on above: Performed By: #### 9 2665, 02511, 5299, 7600 #### [facility] [place] [address] [employer] Worker: Giovanni Rubio MD Basophils/100 WBC (Bld) 1.1 % Normal [facility] Comment on above: Performed By: #### 9 2665, 01433, 6399, 7600 #### [facility] [address], [address] [place] [address] [employer] Worker: Giovanni Rubio MD COMMENT(S) Normal [facility] Comment on above: Result Comment: Revi ew of peripheral smear confirms automated results. Performed By: #### 9 2665, 98203, 6399, 7600 #### [facility] [address], [address] [place] [address] [employer] Worker: Giovanni Rubio MD Eosinophils (Bld) [#/Vol] 0.227 10*3/uL Normal 15-500 [facility] Comment on above: Performed By: #### 9 2665, 66805, 6399, 7600 #### [facility] of [place] [address] [employer] Worker: Giovanni Rubio MD Eosinophils/100 WBC (Bld) 1.6 % Normal [facility] Comment on above: Performed By: #### 9 2665, 36655, 6399, 7600 #### [facility] of [place] [address] [employer] Worker: Giovanni Rubio MD Erythrocyte distribution width (RBC) [Ratio] 13.5 % Normal 11.0-15.0 [facility] Comment on above: Performed By: #### 9 2665, 36199, 6399, 7600 #### [facility] of [place] [address] [employer] Worker: Giovanni Rubio MD Hematocrit (Bld) [Volume fraction] 40.5 % Normal 35.0-45.0 [facility] Comment on above: Performed By: #### 9 2665, 59850, 6399, 7600 #### [facility] of [place] [address] [employer] Worker: Giovanni Rubio MD Hemoglobin (Bld) [Mass/Vol] 13.4 g/dL Normal 11.7-15.5 [facility] Comment on above: Performed By: #### 9 2665, 24829, 6399, 7600 #### [facility] of [place] [address] [employer] Worker: Giovanni Rubio MD Lymphocytes (Bld) [#/Vol] 3.649 10*3/uL Normal 850-3900 [facility] Comment on above: Performed By: #### 9 2665, 62717, 6399, 7600 #### [facility] of [place] [address] [employer] Worker: Giovanni Rubio MD Lymphocytes/100 WBC (Bld) 25.7 % Normal [facility] Comment on above: Performed By: #### 9 2665, 51912, 6399, 7600 #### [facility] [place] [address] [employer] Worker: Giovanni Rubio MD MCH (RBC) [Entitic mass] 29.1 pg Normal 27.0-33.0 [facility] Comment on above: Performed By: #### 9 5, 26365, 6399, 7600 #### [facility] of [address], [address] [place] [address] [employer] Worker: Giovanni Rubio MD MCHC (RBC) [Mass/Vol] 33.1 [...] clinical condition. Performed By: #### 9 5, 56225, 63, 7600 #### [facility] [place] [address] [employer] Worker: Giovanni Rubio MD MCV (RBC) [Entitic vol] 87.9 fL Normal 80.0-100.0 [facility] Comment on above: Performed By: #### 9 2664, 51801, 63, 7600 #### [facility] [place] [address] [employer] Worker: Giovanni Rubio MD Monocytes (Bld) [#/Vol] 1.448 10*3/uL High 200-950 [facility] Comment on above: Performed By: #### 9 266, 98895, 6399, 7600 #### [facility] [place] [address] [employer] Worker: Giovanni Rubio MD Monocytes/100 WBC (Bld) 10.2 % Normal [facility] Comment on above: Performed By: #### 9 2664, 64555, 6399, 7600 #### [facility] of [address], [address] [place] [address] [employer] Worker: Giovanni Rubio MD Neutrophils (Bld) [#/Vol] 8.719 10*3/uL High 3769-2302 [facility] Comment on above: Performed By: #### 9 2665, 19310, 6399, 7600 #### [facility] of [address], [address] [place] [address] [employer] Worker: Giovanni Rubio MD Neutrophils/100 WBC (Bld) 61.4 % Normal [facility] Comment on above: Performed By: #### 9 2665, 25481, 6399, 7600 #### [facility] of [address], [address] [place] [address] [employer] Worker: Giovanni Rubio MD Platelet mean volume (Bld) [Entitic vol] 9.2 fL Normal 7.5-12.5 [facility] Comment on above: Performed By: #### 9 2665, 00099, 6399, 7600 #### [facility] of [place] [address] [employer] Worker: Giovanni Rubio MD Platelets (Bld) [#/Vol] 663 10*3/uL High 140-400 [facility] Comment on above: Performed By: #### 9 2665, 00088, 6399, 7600 #### [facility] of [place] [address] [employer] Worker: Giovanni Rubio MD RBC (Bld) [#/Vol] 4.61 10*6/uL Normal 3.80-5.10 [facility] Comment on above: Performed By: #### 9 2665, 38248, 6399, 7600 #### [facility] of [place] [address] [employer] Worker: Giovanni Rubio MD WBC (Bld) [#/Vol] 14.2 10*3/uL High 3.8-10.8 [facility] Comment on above: Performed By: #### 9 2665, 30923, 6399, 7600 #### [facility] of [address], [address] [place] [address] [employer] Worker: Giovanni Rubio MD COMPREHENSIVE METABOLIC PANE L W/ANION GAPon 05-06-2024 Albumin [Mass/Vol] 3.9 g/dL Normal 3.6-5.1 [facility] Comment on above: Performed By: #### 9 2665, 40131, 6399, 7600 #### [facility] of [address], [address] [place] [address] [employer] Worker: Giovanni Rubio MD ALP [Catalytic activity/Vol] 116 U/L Normal 37-153 [facility] Comment on above: Performed By: #### 9 2665, 47386, 6399, 7600 #### [facility] of [address], [address] [place] [address] [employer] Worker: Giovanni Rubio MD ALT [Catalytic activity/Vol] 9 U/L Normal 6-29 [facility] Comment on above: Performed By: #### 9 2665, 83318, 6399, 7600 #### [facility] of [place] [address] [employer] Worker: Giovanni Rubio MD AST [Catalytic activity/Vol] 15 U/L Normal 10-35 [facility] Comment on above: Performed By: #### 9 2665, 22843, 6399, 7600 #### [facility] of [place] [address] [employer] Worker: Giovanni Rubio MD Bilirubin [Mass/Vol] 0.5 mg/dL Normal 0.2-1.2 [facility] Comment on above: Performed By: #### 9 2665, 02550, 6399, 7600 #### [facility] of [place] [address] [employer] Worker: Giovanni Rubio MD Calcium [Mass/Vol] 9.4 mg/dL Normal 8.6-10.4 [facility] Comment on above: Performed By: #### 9 2905, 60080, 6399, 7600 #### [facility] of [address], [address] [place] [address] [employer] Worker: Giovanni Rubio MD Chloride [Moles/Vol] 97 mmol/L Low 98-110 [facility] Comment on above: Performed By: #### 9 8125, 68200, 6399, 7600 #### [facility] of [place] [address] [employer] Worker: Giovanni Rubio MD CO2 [Moles/Vol] 26 mmol/L Normal 20-32 [facility] Comment on above: Performed By: #### 9 1065, 65050, 6399, 7600 #### [facility] of [place] [address] [employer] Worker: Giovanni Rubio MD Creatinine [Mass/Vol] 1.59 mg/dL High 0.50-1.03 [facility] Comment on above: Performed By: #### 9 3055, 09295, 6399, 7600 #### [facility] of [place] [address] [employer] Worker: Giovanni Rubio MD ELECTROLYTE BALANCE 11 mmol/L (calc) Normal 7-17 [facility] Comment on above: Performed By: #### 9 3485, 74099, 6399, 7600 #### [facility] of [place] [address] [employer] Worker: Giovanni Rubio MD GFR/1.73 sq M.predicted among non-blacks MDRD (S/P/Bld) [Vol rate/Area] 39 mL/min/{1.73_m2} Low > OR = 60 [facility] Comment on above: Performed By: #### 9 2195, 90737, 6399, 7600 #### [facility] of [place] [address] [employer] Worker: Giovanni Rubio MD Glucose [Mass/Vol] 98 mg/dL Normal 65-99 [facility] Comment on above: Result Comment: Fasting reference interval Performed By: #### 9 1145, 86943, 6399, 7600 #### [facility] of [address], [address] [place] [address] [employer] Worker: Giovanni Rubio MD Potassium [Moles/Vol] 5.2 mmol/L Normal 3.5-5.3 [facility] Comment on above: Performed By: #### 9 2665, 57895, 6399, 7600 #### [facility] of [place] [address] [employer] Worker: Giovanni Rubio MD Protein [Mass/Vol] 6.5 g/dL Normal 6.1-8.1 [facility] Comment on above: Performed By: #### 9 2665, 96349, 6399, 7600 #### [facility] of [place] [address] [employer] Worker: Giovanni Rubio MD Sodium [Moles/Vol] 134 mmol/L Low 135-146 [facility] Comment on above: Performed By: #### 9 2665, 61360, 6399, 7600 #### [facility] of [place] [address] [employer] Worker: Giovanni Rubio MD Urea nitrogen [Mass/Vol] 26 mg/dL High 7-25 [facility] Comment on above: Performed By: #### 9 2665, 90733, 6399, 7600 #### [facility] of [place] [address] [employer] Worker: Giovanni Rubio MD HEMOGLOBIN A1c WITH eAGon eAG (mmol/L) 8.2 mmol/L Normal [facility] Comment on above: Performed By: #### 9 2665, 97800, 6399, 7600 #### [facility] [place] [address] [employer] Worker: Giovanni Rubio MD HEMOGLOBIN A1c 6.8 % [...] for children. Performed By: #### 9 2665, 55994, 6399, 7600 #### [facility] [address], [address] [place] [address] [employer] Worker: Giovanni Rubio MD Magnesium [Mass/Vol] 148 mg/dL Normal [facility] Comment on above: Performed By: #### 9 2665, 49960, 6399, 7600 #### [facility] [place] [address] [employer] Worker: Giovanni Rubio MD LIPID PANEL, [facility] [place] Cholesterol [Mass/Vol] 127 mg/dL Normal <200 [facility] Comment on above: Order Comment: FASTI NG:YES FASTING: YES Performed By: #### 9 2665, 40722, 6399, 7600 #### [facility] [place] [address] [employer] Worker: Giovanni Rubio MD Cholesterol in HDL [Mass/Vol] 47 mg/dL Low > OR = 50 [facility] Comment on above: Order Comment: FASTI NG:YES FASTING: YES Performed By: #### 9 2665, 07636, 6399, 7600 #### [facility] [place] [address] [employer] Worker: Giovanni Rubio MD Cholesterol in LDL [Mass/Vol] [...] LDL-C. Manjinder SS et al. RICK. 2013;310(19): 3477-9699 (http://education.Granular/faq/AEE434) Performed By: #### 9 0125, 27660, 6399, 7600 #### [facility] [address], [address] [place] [address] [employer] Worker: Giovanni Rubio MD Cholesterol.total/C holesterol in HDL [Mass ratio] 2.7 {ratio} Normal <5.0 [facility] Comment on above: Order Comment: FASTI NG:YES FASTING: YES Performed By: #### 9 9975, 36947, 6399, 7600 #### [facility] [address], [address] [place] [address] [employer] Worker: Giovanni Rubio MD NON HDL CHOLESTEROL 80 mg/dL (calc) Normal <130 [facility] Comment on above: Order Comment: FASTI NG:YES FASTING: YES Result Comment: For patients with diabetes plus 1 major ASCVD risk factor, treating to a non-HDL-C goal of <100 mg/dL (LDL-C of <70 mg/dL) is considered a therapeutic option. Performed By: #### 9 5015, 47417, 6399, 7600 #### [facility] [address], [address] [place] [address] [employer] Worker: Giovanni Rubio MD Triglyceride [Mass/Vol] 151 mg/dL High <150 [facility] Comment on above: Order Comment: FASTI NG:YES FASTING: YES Performed By: #### 9 4695, 06289, 6399, 7600 #### [facility] [address], [address] [place] [address] [employer] Worker: Giovanni ROTHOVon 04-29-2024 CNOV Office Visit (UCMMAS ) ----- CHINA ORTIZ ([id number]) 1970 F Date Time Provider Department 04/29/24 1:55 PM STEPHANIE WILDER During your visit today, we recorded the following information about you: Temperature Pulse Respiration Blood pressure 98.6 degrees 95/minute 18/minute 112/80 Weight 90.7 kg Stephanie Wilder, REGISTERED 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 [facility] XR CHEST 2V FRONTAL/LATon XR CHEST 2V [...] the right hemidiaphragm. IMPRESSION: No acute abnormalities. Assembler 1St Shift: RANDALL Transcribe Date/Time: Apr 30 2024 8:44A Dictated by : WERNER KENNEDY MD This examination was interpreted and the report reviewed and electronically signed by: WERNER KENNEDY MD on Apr 30 2024 8:45AM EST [id number] [facility] Urgent Care Visit Reporton 1 Urgent Care Visit Report [facility] [address], [address] [place], [place] [id number] OFFICE VISIT Date of Service: 01/29/24 MR#: [id number] Acct: [id number] Name: CHINA ORTIZ Rep #: [id number] : 1970 Provider: PREMA Munoz Age/Sex: 53/F Location: [facility] Status: Signed Intake Intake Visit Reasons: PRE EMP/NON DOT/PHYSICAL/[facility] Medical History (Updated 01/29/24 @ 13:01 [...] Status: Acute 01/29/24 1301 Date [facility] Signature: Date (if applicable) CC: Normal [facility] .Auto Diffon 11-14-2023 Basophil, Absolute 0.1 10 3/mcL Normal 0.0-0.3 [facility] ([place]) Comment on above: Performed By: #### T CHICO, DIMER, TSHR, A1C, LIPID #### [address] [address] Basophils/100 WBC (Bld) 0.6 % Normal 0.0-2.5 [facility] ([place]) Comment on above: Performed By: #### T CHICO, DIMER, TSHR, A1C, LIPID #### [address] [address] Eosinophil, Absolute 0.0 10 3/mcL Normal 0.0-0.7 [facility] ([place]) Comment on above: Performed By: #### T CHICO, DIMER, TSHR, A1C, LIPID #### [address] [address] Eosinophils/100 WBC (Bld) 0.2 % Normal 0.0-6.0 [facility] ([place]) Comment on above: Performed By: #### T RICHHS, DIMER, TSHR, A1C, LIPID #### [address] [address] Lymphocyte, Absolute 3.6 10 3/mcL Normal 0.9-4.3 [facility] ([place] Comment on above: Performed By: #### T ROPHS, DIMER, TSHR, A1C, LIPID #### [address] [address] Lymphocytes/100 WBC (Bld) 19.6 % Low 20.0-40.0 [facility] ([place] Comment on above: Performed By: #### T ROPHS, DIMER, TSHR, A1C, LIPID #### [address] [address] Monocyte, Absolute 1.3 10 3/mcL Normal 0.1-1.4 [facility] ([place] Comment on above: Performed By: #### T ROPHS, DIMER, TSHR, A1C, LIPID #### [address] [address] Monocytes/100 WBC (Bld) 7.2 % Normal 2.0-13.0 [facility] ([place] Comment on above: Performed By: #### T ROPHS, DIMER, TSHR, A1C, LIPID #### [address] [address] Neutrophils/100 WBC (Bld) 72.4 % Normal 50.0-75.0 [facility] ([place] Comment on above: Performed By: #### T ROPHS, DIMER, TSHR, A1C, LIPID #### [address] [address] .GFRon 11-14-2023 GFR >60 Normal [facility] ([place] Comment on above: Result Comment: GFR Population [...] T CHICO, DIMER, TSHR, A1C, LIPID #### [address] [address] GFR Non- >60 Normal [facility] ([place] Comment on above: Result Comment: GFR Population [...] T CHICO, DIMER, TSHR, A1C, LIPID #### [address] [address] .MDWon 11-14-2023 Monocyte Distribution Width 17.46 Normal 0.00-20.00 [facility] ([place] Comment on above: Result Comment: For ED adult patients suspected of sepsis, MDW<=20.0 does not rule out sepsis or risk of sepsis Performed By: #### T CHICO, DIMER, TSHR, A1C, LIPID #### [address] [address] .NEUABSon 11-14-2023 Neutrophil, Absolute 13.3 10 3/mcL High 2.3-8.1 [facility] ([place] Comment on above: Performed By: #### T CHICO, DIMER, TSHR, A1C, LIPID #### [address] [address] CBCon 11-14-2023 Erythrocyte distribution width (RBC) [Ratio] 14.3 % Normal 11.5-15.5 [facility] ([place] Comment on above: Performed By: #### T ROPHS, DIMER, TSHR, A1C, LIPID #### [place] [address] Hematocrit (Bld) [Volume fraction] 42.3 % Normal 34.0-46.0 [facility] ([place] Comment on above: Performed By: #### T ROPHS, DIMER, TSHR, A1C, LIPID #### [place] [address] Hgb 14.2 G/dL Normal 12.0-16.0 [facility] ([place] Comment on above: Performed By: #### T ROPHS, DIMER, TSHR, A1C, LIPID #### [place] [address] MCH (RBC) [Entitic mass] 30.1 pg Normal 27.0-33.0 [facility] ([place] Comment on above: Performed By: #### T ROPHS, DIMER, TSHR, A1C, LIPID #### [place] [address] MCHC 33.7 G/dL Normal 32.0-36.0 [facility] ([place] Comment on above: Performed By: #### T ROPHS, DIMER, TSHR, A1C, LIPID #### [place] [address] MCV (RBC) [Entitic vol] 89.3 fL Normal 80.0-99.0 [facility] ([place] Comment on above: Performed By: #### T ROPHS, DIMER, TSHR, A1C, LIPID #### [place] [address] Platelet 431 10 3/mcL Normal 150-450 [facility] ([place] Comment on above: Performed By: #### T ROPHS, DIMER, TSHR, A1C, LIPID #### [place] [address] Platelet mean volume (Bld) [Entitic vol] 8.7 fL Normal 6.6-10.5 [facility] ([place] Comment on above: Performed By: #### T ROPHS, DIMER, TSHR, A1C, LIPID #### [address] [address] RBC 4.73 10 6/mcL Normal 4.10-5.30 [facility] ([place] Comment on above: Performed By: #### T ROPHS, DIMER, TSHR, A1C, LIPID #### [address] [address] WBC 18.4 10 3/mcL High 4.5-10.8 [facility] ([place] Comment on above: Performed By: #### T ROPHS, DIMER, TSHR, A1C, LIPID #### [address] [address] CMPon 11-14-2023 Albumin Level 3.8 G/dL Normal 3.2-4.8 [facility] ([place] Comment on above: Performed By: #### T ROPHS, DIMER, TSHR, A1C, LIPID #### [address] [address] Albumin/Globulin [Mass ratio] 1.2 {ratio} Normal 0.9-1.6 [facility] ([place] Comment on above: Performed By: #### T ROPHS, DIMER, TSHR, A1C, LIPID #### [address] [address] ALP [Catalytic activity/Vol] 107 U/L Normal 38-126 [facility] ([place] Comment on above: Performed By: #### T ROPHS, DIMER, TSHR, A1C, LIPID #### [address] [address] ALT [Catalytic activity/Vol] 13 U/L Normal 10-49 [facility] ([place] Comment on above: Performed By: #### T ROPHS, DIMER, TSHR, A1C, LIPID #### [address] [address] AST [Catalytic activity/Vol] 17 U/L Normal 8-34 [facility] ([place] Comment on above: Performed By: #### T ROPHS, DIMER, TSHR, A1C, LIPID #### [place] [id number] Bili Total 0.40 mg/dL Normal 0.20-1.20 [facility] ([place] Comment on above: Result Comment: Use of this assay is not recommended for patients undergoing treatment with eltrombopag due to the potential for falsely elevated results. Performed By: #### T ROPHS, DIMER, TSHR, A1C, LIPID #### [address] [address] BUN/Creatinine Ratio 17.5 ratio Normal 10.0-22.0 [facility] ([place] Comment on above: Performed By: #### T ROPHS, DIMER, TSHR, A1C, LIPID #### [address] [address] Calcium [Mass/Vol] 9.6 mg/dL Normal 8.7-10.4 [facility] ([place]) Comment on above: Performed By: #### T ROPHS, DIMER, TSHR, A1C, LIPID #### [address] [address] Chloride [Moles/Vol] 104 mmol/L Normal 98-110 [facility] ([place] Comment on above: Performed By: #### T ROPHS, DIMER, TSHR, A1C, LIPID #### [address] [address] CO2 [Moles/Vol] 30 mmol/L Normal 22-32 [facility] ([place] Comment on above: Performed By: #### T ROPHS, DIMER, TSHR, A1C, LIPID #### [address] [address] Creatinine [Mass/Vol] 0.97 mg/dL Normal 0.50-1.20 [facility] ([place] Comment on above: Performed By: #### T ROPHS, DIMER, TSHR, A1C, LIPID #### [address] [address] Electrolyte Balance 7.0 mEq/L Normal 4.0-15.0 [facility] ([place]) Comment on above: Performed By: #### T ROPHS, DIMER, TSHR, A1C, LIPID #### [address] [address] Globulin 3.2 G/dL Normal 1.5-3.8 [facility] ([place] Comment on above: Performed By: #### T ROPHS, DIMER, TSHR, A1C, LIPID #### [address] [address] Glucose [Mass/Vol] 198 mg/dL High 70-110 [facility] ([place] Comment on above: Performed By: #### T ROPHS, DIMER, TSHR, A1C, LIPID #### [address] [address] Potassium [Moles/Vol] 4.1 mmol/L Normal 3.5-5.0 [facility] ([place] Comment on above: Performed By: #### T ROPHS, DIMER, TSHR, A1C, LIPID #### [address] [address] Sodium [Moles/Vol] 141 mmol/L Normal 136-145 [facility] ([place]) Comment on above: Performed By: #### T ROPHS, DIMER, TSHR, A1C, LIPID #### [place] [id number] Total Protein 7.0 G/dL Normal 5.7-8.2 [facility] ([place]) Comment on above: Result Comment: No te - New Reference Range in effect 19 Performed By: #### T ROPHS, DIMER, TSHR, A1C, LIPID #### [place] [id number] Urea nitrogen [Mass/Vol] 17.0 mg/dL Normal 8.0-22.0 [facility] ([place] Comment on above: Performed By: #### T ROPHS, DIMER, TSHR, A1C, LIPID #### [address] [address] [address] ABD/PELVIS W/ IV CONTRAST ONLYon 11-14-2023 [...] 11/14/2023 9:52:35 PM Ordering Provider: TOMMY BONILLA [facility] ([place]) LABORATORYOrdered By: SYSTEM SYSTEM on 11-14-2023 Albumin [...] (S/P/Bld) [Vol rate/Area] ml/min/1.73sqm Invalid Interpretation Code [facility] Comment on above: Interpretive Data: GFR Population [...] 37 U/L Normal 12 - 53 U/L [facility] Comment on above: Interpretive Data: * *Note [...] 11-14-2023 Lipase Level 37 U/L Normal 12-53 [facility] ([place]) Comment on above: Result Comment: No te - New Reference Range in effect 19 Performed By: #### T ROPHS, DIMER, TSHR, A1C, LIPID #### [address] [address] UAon 11-14-2023 Color (U) Yellow Normal [facility] ([place]) Comment on above: Performed By: #### U A #### [address] [address] Glucose (U) [Mass/Vol] Negative Normal Negative [facility] ([place] Comment on above: Performed By: #### U A #### [place] [address] Ketones Ql (U) Negative Normal Neg-Trace [facility] ([place] Comment on above: Performed By: #### U A #### [place] [address] UA Appear Clear Normal Clear [facility] ([place] Comment on above: Performed By: #### U A #### [place] [address] UA Blood Negative Normal Neg-Trace [facility] ([place] Comment on above: Performed By: #### U A #### [place] [address] UA Leuk Est Negative Normal Negative [facility] ([place] Comment on above: Performed By: #### U A #### [place] [address] UA Nitrite Negative Normal Negative [facility] ([place] Comment on above: Performed By: #### U A #### [place] [address] UA pH 5.0 Normal 5.0 - 8.0 [facility] ([place] Comment on above: Performed By: #### U A #### [place] [address] UA Protein Trace Normal Negative [facility] ([place] Comment on above: Performed By: #### U A #### [place] [address] UA Spec Grav 1.020 Normal 1.006-1.029 [facility] ([place] Comment on above: Performed By: #### U A #### [place] [address] UA Specimen Type Clean Catch Normal [facility] ([place] Comment on above: Performed By: #### U A #### [place] [address] UA Urobilinogen 0.2 E.U./dL Normal 0.2-1.0 [facility] ([place] Comment on above: Performed By: #### U A #### [address] [address] Urobilinogen (U) [Mass/Vol] Negative Normal Neg-Trace [facility] ([place] Comment on above: Performed By: #### U A #### [address] [address] C reactive proteinon 024 CRP [Mass/Vol] 1.35 mg/dL High <1.00 [facility] Comment on above: Performed By: #### 1 988-5 #### GRACIELA Lang ([id number]) [facility] ([facility]) [address] [place] [address] CBC W Auto Differential pane l (Bld)on 11-01-2023 Basophils (Bld) [#/Vol] 0.18 x10*3/uL High 0.00-0.10 [facility] Comment on above: Performed By: #### 5 7021-8 #### GRACIELA Lang ([id number]) [facility] ([facility]) [address] [place] [address] Basophils/100 WBC (Bld) 1.5 % Normal 0.0-2.0 [facility] Comment on above: Performed By: #### 5 7021-8 #### GRACIELA Lang ([id number]) [facility] ([facility]) [address] [place] [address] Eosinophils (Bld) [#/Vol] 0.79 x10*3/uL High 0.00-0.70 [facility] Comment on above: Performed By: #### 5 7021-8 #### GRACIELA Lang ([id number]) [facility] ([facility]) [address] [place] [address] Eosinophils/100 WBC (Bld) 6.4 % Normal 0.0-6.0 [facility] Comment on above: Performed By: #### 5 7021-8 #### GRACIELA Lang ([id number]) [facility] ([facility]) [address] [place] [address] Erythrocyte distribution width (RBC) [Ratio] 13.8 % Normal 11.5-14.5 [facility] Comment on above: Performed By: #### 5 7021-8 #### GRACIELA Lang ([id number]) [facility] ([facility]) [address] [place] [address] Hematocrit (Bld) [Volume fraction] 43.6 % Normal 36.0-46.0 [facility] Comment on above: Performed By: #### 5 7021-8 #### GRACIELA Lang ([id number]) [facility] ([facility]) [address] [place] [address] Hemoglobin (Bld) [Mass/Vol] 14.1 g/dL Normal 12.0-16.0 [facility] Comment on above: Performed By: #### 5 7021-8 #### GRACIELA Lang ([id number]) [facility] ([facility]) [address] [place] [address] Immature granulocytes (Bld) [#/Vol] 0.09 x10*3/uL Normal 0.00-0.70 [facility] Comment on above: Performed By: #### 5 7021-8 #### GRACIELA Lang ([id number]) [facility] ([facility]) [address] [place] [address] Immature granulocytes/100 WBC (Bld) 0.7 % Normal 0.0-0.9 [facility] Comment on above: Result Comment: Jahaira ture Granulocyte Count (IG) includes promyelocytes, myelocytes and metamyelocytes but does not include bands. Percent differential counts (%) should be interpreted in the context of the absolute cell counts (cells/UL). Performed By: #### 5 7021-8 #### GRACIELA Lang ([id number]) [facility] ([facility]) [address] [place] [address] Lymphocytes (Bld) [#/Vol] 2.50 x10*3/uL Normal 1.20-4.80 [facility] Comment on above: Performed By: #### 5 7021-8 #### GRACIELA Lang ([id number]) [facility] ([facility]) [address] [place] [address] Lymphocytes/100 WBC (Bld) 20.3 % Normal 13.0-44.0 [facility] Comment on above: Performed By: #### 5 7021-8 #### GRACIELA Lang ([id number]) [facility] ([facility]) [address] [place] [address] MCH (RBC) [Entitic mass] 29.3 pg Normal 26.0-34.0 [facility] Comment on above: Performed By: #### 5 7021-8 #### GRACIELA Lang ([id number]) [facility] ([facility]) [address] [place] [address] MCHC (RBC) [Mass/Vol] 32.3 g/dL Normal 32.0-36.0 [facility] Comment on above: Performed By: #### 5 7021-8 #### GRACIELA Lang ([id number]) [facility] ([facility]) [address] [place] [address] MCV (RBC) [Entitic vol] 91 fL Normal 80-100 [facility] Comment on above: Performed By: #### 5 7021-8 #### GRACIELA Lang ([id number]) [facility] ([facility]) [address] [place] [address] Monocytes (Bld) [#/Vol] 1.18 x10*3/uL High 0.10-1.00 [facility] Comment on above: Performed By: #### 5 7021-8 #### GRACIELA Lang ([id number]) [facility] ([facility]) [address] [place] [address] Monocytes/100 WBC (Bld) 9.6 % Normal 2.0-10.0 [facility] Comment on above: Performed By: #### 5 7021-8 #### GRACIELA Lang ([id number]) [facility] ([facility]) [address] [place] [address] Neutrophils (Bld) [#/Vol] 7.58 x10*3/uL Normal 1.20-7.70 [facility] Comment on above: Result Comment: Perc ent differential counts (%) should be interpreted in the context of the absolute cell counts (cells/uL). Performed By: #### 5 7021-8 #### GRACIELA Lang ([id number]) [facility] ([facility]) [address] [place] [address] Neutrophils/100 WBC (Bld) 61.5 % Normal 40.0-80.0 [facility] Comment on above: Performed By: #### 5 7021-8 #### GRACIELA Lang ([id number]) [facility] ([facility]) [address] [place] [address] Nucleated RBC/100 WBC (Bld) [Ratio] 0.0 /100 WBCs Normal 0.0-0.0 [facility] Comment on above: Performed By: #### 5 7021-8 #### GRACIELA Lang ([id number]) [facility] ([facility]) [address] [place] [address] Platelets (Bld) [#/Vol] 489 x10*3/uL High 150-450 [facility] Comment on above: Performed By: #### 5 7021-8 #### GRACIELA Lang ([id number]) [facility] ([facility]) [address] [place] [address] RBC (Bld) [#/Vol] 4.81 x10*6/uL Normal 4.00-5.20 [facility] Comment on above: Performed By: #### 5 7021-8 #### GRACIELA Lang ([id number]) [facility] ([facility]) [address] [place] [address] WBC (Bld) [#/Vol] 12.3 x10*3/uL High 4.4-11.3 [facility] Comment on above: Performed By: #### 5 7021-8 #### GRACIELA Lang ([id number]) [facility] ([facility]) [id number] [place] [address] Complement C3on 11-01-2023 Complement C3 [Mass/Vol] 159 mg/dL Normal 87-200 [facility] Comment on above: Performed By: #### 4 485-9 #### GRACIELA Lang ([id number]) [facility] ([facility]) [id number] [place] [address] Complement C4on 11-01-2023 Complement C4 [Mass/Vol] 75 mg/dL High 10-50 [facility] Comment on above: Performed By: #### 4 498-2 #### GRACIELA Lang ([id number]) [facility] ([facility]) [id number] [place] [address] Comprehensive metabolic 2000 panelon 11-01-2023 Albumin BCP dye [Mass/Vol] 4.3 g/dL Normal 3.4-5.0 [facility] Comment on above: Performed By: #### 2 4323-8 #### GRACIELA Lang ([id number]) [facility] ([facility]) [id number] [place] [address] ALP [Catalytic activity/Vol] 126 U/L High 33-110 [facility] Comment on above: Performed By: #### 2 4323-8 #### GRACIELA Lang ([id number]) [facility] ([facility]) [address] [place] [address] ALT With P-5'-P [Catalytic activity/Vol] 14 U/L Normal 7-45 [facility] Comment on above: Result Comment: Loretta ents treated with Sulfasalazine may generate falsely decreased results for ALT. Performed By: #### 2 4323-8 #### GRACIELA Lang ([id number]) [facility] ([facility]) [address] [place] [address] Anion gap [Moles/Vol] 15 mmol/L Normal 10-20 [facility] Comment on above: Performed By: #### 2 4323-8 #### GRACIELA Lang ([id number]) [facility] ([facility]) [address] [place] [address] AST With P-5'-P [Catalytic activity/Vol] 17 U/L Normal 9-39 [facility] Comment on above: Performed By: #### 2 4323-8 #### GRACIELA Lang ([id number]) [facility] ([facility]) [id number] [place] [address] Bilirubin [Mass/Vol] 0.5 mg/dL Normal 0.0-1.2 [facility] Comment on above: Performed By: #### 2 4323-8 #### GRACIELA Lang ([id number]) [facility] ([facility]) [address] [place] [address] Calcium [Mass/Vol] 9.9 mg/dL Normal 8.6-10.6 [facility] Comment on above: Performed By: #### 2 4323-8 #### GRACIELA Lang ([id number]) [facility] ([facility]) [address] [place] [address] Chloride [Moles/Vol] 102 mmol/L Normal 98-107 [facility] Comment on above: Performed By: #### 2 4323-8 #### GRACIELA Lang ([id number]) [facility] ([facility]) [id number] [place] [address] CO2 [Moles/Vol] 28 mmol/L Normal 21-32 [facility] Comment on above: Performed By: #### 2 4323-8 #### GRACIELA Lang ([id number]) [facility] ([facility]) [id number] [place] [address] Creatinine [Mass/Vol] 1.00 mg/dL Normal 0.50-1.05 [facility] Comment on above: Performed By: #### 2 4323-8 #### GRACIELA Lang ([id number]) [facility] ([facility]) [address] [place] [address] Glomerular filtration rate/1.73 sq M.predicted 68 mL/min/1.73m*2 Normal >60 [facility] Comment on above: Result Comment: Calc ulations of estimated GFR are performed using the 2020 CKD-EPI Study Refit equation without the race variable for the IDMS-Traceable creatinine methods. https://jasn.asnjournals.org/content//ASN.08033635 88 Performed By: #### 2 4323-8 #### GRACIELA Lang ([id number]) [facility] ([facility]) [id number] [place] [address] Glucose [Mass/Vol] 145 mg/dL High 74-99 [facility] Comment on above: Performed By: #### 2 4323-8 #### GRACIELA RASCON L ([id number]) [facility] ([facility]) [id number] [place] [address] Potassium [Moles/Vol] 5.1 mmol/L Normal 3.5-5.3 [facility] Comment on above: Performed By: #### 2 4323-8 #### GRACIELA TAYLORMOTZER L ([id number]) [facility] ([facility]) [id number] [place] [address] Protein [Mass/Vol] 7.0 g/dL Normal 6.4-8.2 [facility] Comment on above: Performed By: #### 2 4323-8 #### GRACIELA TAYLORMOTZNAVARRO L ([id number]) [facility] ([facility]) [id number] [place] [address] Sodium [Moles/Vol] 140 mmol/L Normal 136-145 [facility] Comment on above: Performed By: #### 2 4323-8 #### GRACIELA TAYLORMOTZER L ([id number]) [facility] ([facility]) [address] [place] [address]952 Urea nitrogen [Mass/Vol] 15 mg/dL Normal 6-23 [facility] Comment on above: Performed By: #### 2 4323-8 #### GRACIELA Lang ([id number]) [facility] ([facility]) [address] [place] [address] DNA double strand Abon 10-31 DNA double strand Ab Qn (S) [IU]/mL Normal <5.0 [facility] Comment on above: Result Comment: NEGA TIVE: <= 4 IU/ML EQUIVOCAL: 5- 9 IU/ML POSITIVE: >=10 IU/ML Performed By: #### 5 130-0 #### GRACIELA Lang ([id number]) [facility] ([facility]) [address] [place] [address]107 ESR Westergren method (Bld) [Velocity]on 11-01-2023 ESR (Bld) [Velocity] 34 mm/h High 0-30 [facility] Comment on above: Performed By: #### 4 537-7 #### GRACIELA Lang ([id number]) [facility] ([facility]) [address] [place], [place] [id number] HbA1c (Bld) [Mass fraction]o n 11-01-2023 Average glucose Estimated from glycated hemoglobin (Bld) [Mass/Vol] 160 mg/dL Normal Not Established [facility] Comment on above: Order Comment: Diagn osis of Diabetes-Adults Non-Diabetic: < or = 5.6% Increased risk for developing diabetes: 5.7-6.4% Diagnostic of diabetes: > or = 6.5% Performed By: #### 4 548-4 #### GRACIELA Lang ([id number]) [facility] ([facility]) [address] [place] [address]375 Hemoglobin A1c/Hemoglobin.to flavio 11-01-2023 HbA1c (Bld) [Mass fraction] 7.2 % High see below [facility] Comment on above: Order Comment: Diagn osis of Diabetes-Adults Non-Diabetic: < or = 5.6% Increased risk for developing diabetes: 5.7-6.4% Diagnostic of diabetes: > or = 6.5% Performed By: #### 4 548-4 #### GRACIELA Lang ([id number]) [facility] ([facility]) [address] [place] [address] .Auto Diffon 10-02-2023 Basophil, Absolute 0.0 10 3/mcL Normal 0.0-0.3 [facility] ([place]) Comment on above: Performed By: #### T ROPHS, DIMER, TSHR, A1C, LIPID #### [address] [address] Basophils/100 WBC (Bld) 0.3 % Normal 0.0-2.5 [facility] ([place]) Comment on above: Performed By: #### T ROPHS, DIMER, TSHR, A1C, LIPID #### [address] [address] Eosinophil, Absolute 0.7 10 3/mcL Normal 0.0-0.7 [facility] ([place]) Comment on above: Performed By: #### T ROPHS, DIMER, TSHR, A1C, LIPID #### [address] [address] Eosinophils/100 WBC (Bld) 5.6 % Normal 0.0-6.0 [facility] ([place]) Comment on above: Performed By: #### T ROPHS, DIMER, TSHR, A1C, LIPID #### [address] [address] Lymphocyte, Absolute 3.7 10 3/mcL Normal 0.9-4.3 [facility] ([place]) Comment on above: Performed By: #### T ROPHS, DIMER, TSHR, A1C, LIPID #### [address] [address] Lymphocytes/100 WBC (Bld) 29.8 % Normal 20.0-40.0 [facility] ([place]) Comment on above: Performed By: #### T ROPHS, DIMER, TSHR, A1C, LIPID #### [address] [address] Monocyte, Absolute 1.6 10 3/mcL High 0.1-1.4 [facility] ([place]) Comment on above: Performed By: #### T ROPHS, DIMER, TSHR, A1C, LIPID #### [place] [id number] [place] [address] Monocytes/100 WBC (Bld) 12.8 % Normal 2.0-13.0 [facility] ([place] Comment on above: Performed By: #### T ROPHS, DIMER, TSHR, A1C, LIPID #### [place] [id number] [place] [address] Neutrophils/100 WBC (Bld) 51.5 % Normal 50.0-75.0 [facility] ([place] Comment on above: Performed By: #### T ROPHS, DIMER, TSHR, A1C, LIPID #### [address] [address] .GFRon 10-02-2023 GFR >60 Normal [facility] ([place] Comment on above: Result Comment: GFR Population [...] T ROPHS, DIMER, TSHR, A1C, LIPID #### [address] [address] GFR Non- >60 Normal [facility] ([place] Comment on above: Result Comment: GFR Population [...] T ROPHS, DIMER, TSHR, A1C, LIPID #### [address] [address] .NEUABSon 10-02-2023 Neutrophil, Absolute 6.4 10 3/mcL Normal 2.3-8.1 [facility] ([place] Comment on above: Performed By: #### T ROPHS, DIMER, TSHR, A1C, LIPID #### [address] [address] BMPon 10-02-2023 BUN/Creatinine Ratio 18.1 ratio Normal 10.0-22.0 [facility] ([place] Comment on above: Performed By: #### T ROPHS, DIMER, TSHR, A1C, LIPID #### [place] [id number] Calcium [Mass/Vol] 9.4 mg/dL Normal 8.7-10.4 [facility] ([place]) Comment on above: Performed By: #### T CHICO, DIMER, TSHR, A1C, LIPID #### [place] [address] Chloride [Moles/Vol] 105 mmol/L Normal 98-110 [facility] ([place] Comment on above: Performed By: #### T ROPHS, DIMER, TSHR, A1C, LIPID #### [place] [id number] CO2 [Moles/Vol] 27 mmol/L Normal 22-32 [facility] ([place] Comment on above: Performed By: #### T ROPHS, DIMER, TSHR, A1C, LIPID #### [place] [address] Creatinine [Mass/Vol] 0.83 mg/dL Normal 0.50-1.20 [facility] ([place] Comment on above: Performed By: #### T ROPHS, DIMER, TSHR, A1C, LIPID #### [place] [address] Electrolyte Balance 8.0 mEq/L Normal 4.0-15.0 [facility] ([place]) Comment on above: Performed By: #### T ROPSTEPHEN, DIMER, TSHR, A1C, LIPID #### [place] [phone] Glucose [Mass/Vol] 132 mg/dL High 70-110 [facility] ([place] Comment on above: Performed By: #### T ROPHS, DIMER, TSHR, A1C, LIPID #### [place] [id number] Potassium [Moles/Vol] 4.3 mmol/L Normal 3.5-5.0 [facility] ([place] Comment on above: Performed By: #### T CHICO, DIMER, TSHR, A1C, LIPID #### [place] [phone] Sodium [Moles/Vol] 140 mmol/L Normal 136-145 [facility] ([place] Comment on above: Performed By: #### T ROPHS, DIMER, TSHR, A1C, LIPID #### [place] [address] Urea nitrogen [Mass/Vol] 15.0 mg/dL Normal 8.0-22.0 [facility] ([place] Comment on above: Performed By: #### T ROPHS, DIMER, TSHR, A1C, LIPID #### [address] [address] CBCon 10-02-2023 Erythrocyte distribution width (RBC) [Ratio] 13.3 % Normal 11.5-15.5 [facility] ([place] Comment on above: Performed By: #### T ROPHS, DIMER, TSHR, A1C, LIPID #### [place] [phone] Hematocrit (Bld) [Volume fraction] 40.4 % Normal 34.0-46.0 [facility] ([place] Comment on above: Performed By: #### T ROPHS, DIMER, TSHR, A1C, LIPID #### [place] [id number] Hgb 13.7 G/dL Normal 12.0-16.0 [facility] ([place] Comment on above: Performed By: #### T ROPHS, DIMER, TSHR, A1C, LIPID #### [place] [address] MCH (RBC) [Entitic mass] 30.5 pg Normal 27.0-33.0 [facility] ([place] Comment on above: Performed By: #### T ROPHS, DIMER, TSHR, A1C, LIPID #### [place] [address] MCHC 33.9 G/dL Normal 32.0-36.0 [facility] ([place] Comment on above: Performed By: #### T ROPHS, DIMER, TSHR, A1C, LIPID #### [place] [address] MCV (RBC) [Entitic vol] 90.0 fL Normal 80.0-99.0 [facility] ([place] Comment on above: Performed By: #### T ROPSTEPHEN, DIMER, TSHR, A1C, LIPID #### [place] [address] Platelet 404 10 3/mcL Normal 150-450 [facility] ([place] Comment on above: Performed By: #### T ROPSTEPHEN, DIMER, TSHR, A1C, LIPID #### [place] [address] Platelet mean volume (Bld) [Entitic vol] 8.2 fL Normal 6.6-10.5 [facility] ([place] Comment on above: Performed By: #### T ROPHS, DIMER, TSHR, A1C, LIPID #### [place] [address] RBC 4.49 10 6/mcL Normal 4.10-5.30 [facility] ([place] Comment on above: Performed By: #### T ROPHS, DIMER, TSHR, A1C, LIPID #### [place] [address] WBC 12.4 10 3/mcL High 4.5-10.8 [facility] ([place] Comment on above: Performed By: #### T ROPHS, DIMER, TSHR, A1C, LIPID #### [place] [address] LABORATORYOrdered By: Mallika Guerrero on 10-02-2023 Blood Glucose Testing Reason Routine (10/02/23 4:29 PM) [facility] Work Phone: Glucose [Mass/Vol] 96 mg/dL Normal 70 - 110 mg/dL [facility] Work Phone: LABORATORYOrdered By: Jose Carlos Irwin on 10-02-2023 Blood Glucose Testing Reason Routine (10/02/23 12:06 PM) [facility] Work Phone: Glucose [Mass/Vol] 120 mg/dL High 70 - 110 mg/dL [facility] Work Phone: LABORATORYOrdered By: Bela Rodriguez on 10-02-2023 Blood Glucose Testing Reason Routine (10/02/23 10:15 AM) [facility] Work Phone: Glucose [Mass/Vol] 184 mg/dL High 70 - 110 mg/dL [facility] Work Phone: LABORATORYOrdered By: SYSTEM SYSTEM on [...] (S/P/Bld) [Vol rate/Area] ml/min/1.73sqm Invalid Interpretation Code [facility] Comment on above: Interpretive Data: GFR Population [...] (S/P/Bld) [Vol rate/Area] ml/min/1.73sqm Invalid Interpretation Code [facility] Comment on above: Interpretive Data: GFR Population [...] 132 mg/dL High 70 - 110 mg/dL [facility] Hematocrit (Bld) [Volume fraction] 40.4 % Normal [...] 10-02-2023 Magnesium [Mass/Vol] 2.0 mg/dL Normal 1.6-2.4 [facility] ([place] Comment on above: Performed By: #### T CHICO, DIMER, TSHR, A1C, LIPID #### [address] [address] [place] MYOCARDIAL SPECT STRESS/R ESTon 10-02-2023 NM [...] Date: 10/02/2023 8:31:57 PM Ordering Provider:Robert Tao [facility] ([place]) .Auto Diffon 10-01-2023 Basophil, Absolute 0.0 10 3/mcL Normal 0.0-0.3 [facility]) Comment on above: Performed By: #### T CHICO, DIMER, TSHR, A1C, LIPID #### [address] [address] Basophils/100 WBC (Bld) 0.2 % Normal 0.0-2.5 [facility] ([place]) Comment on above: Performed By: #### T ROPHS, DIMER, TSHR, A1C, LIPID #### [address] [address] Eosinophil, Absolute 0.7 10 3/mcL Normal 0.0-0.7 [facility] ([place]) Comment on above: Performed By: #### T ROPHS, DIMER, TSHR, A1C, LIPID #### [address] [address] Eosinophils/100 WBC (Bld) 6.3 % High 0.0-6.0 [facility] ([place]) Comment on above: Performed By: #### T ROPHS, DIMER, TSHR, A1C, LIPID #### [address] [address] Lymphocyte, Absolute 3.0 10 3/mcL Normal 0.9-4.3 [facility] ([place]) Comment on above: Performed By: #### T ROPHS, DIMER, TSHR, A1C, LIPID #### [address] [address] Lymphocytes/100 WBC (Bld) 28.3 % Normal 20.0-40.0 [facility] ([place]) Comment on above: Performed By: #### T ROPHS, DIMER, TSHR, A1C, LIPID #### [address] [address] Monocyte, Absolute 1.3 10 3/mcL Normal 0.1-1.4 [facility] ([place] Comment on above: Performed By: #### T ROPHS, DIMER, TSHR, A1C, LIPID #### [address] [address] Monocytes/100 WBC (Bld) 12.0 % Normal 2.0-13.0 [facility] ([place]) Comment on above: Performed By: #### T ROPHS, DIMER, TSHR, A1C, LIPID #### [address] [address] Neutrophils/100 WBC (Bld) 53.2 % Normal 50.0-75.0 [facility] ([place]) Comment on above: Performed By: #### T CHICO, DIMER, TSHR, A1C, LIPID #### [address] [address] .GFRon 10-01-2023 GFR >60 Normal [facility] ([place] Comment on above: Result Comment: GFR Population [...] T CHICO, DIMER, TSHR, A1C, LIPID #### [place] [address] GFR Non- >60 Normal [facility] ([place] Comment on above: Result Comment: GFR Population [...] T CHICO, DIMER, TSHR, A1C, LIPID #### [address] [address] .NEUABSon 10-01-2023 Neutrophil, Absolute 5.6 10 3/mcL Normal 2.3-8.1 [facility] ([place] Comment on above: Performed By: #### T RICHHS, DIMER, TSHR, A1C, LIPID #### [address] [address] A1Con 10-01-2023 HbA1c (Bld) [Mass fraction] 7.0 % High 4.0-6.0 [facility] ([place] Comment on above: Performed By: #### T RICHHS, DIMER, TSHR, A1C, LIPID #### [address] [address] BMPon 10-01-2023 BUN/Creatinine Ratio 13.0 ratio Normal 10.0-22.0 [facility] ([place] Comment on above: Performed By: #### T RICHHS, DIMER, TSHR, A1C, LIPID #### [address] [address] Calcium [Mass/Vol] 8.8 mg/dL Normal 8.7-10.4 [facility] ([place] Comment on above: Performed By: #### T CHICO, DIMER, TSHR, A1C, LIPID #### [address] [address] Chloride [Moles/Vol] 109 mmol/L Normal 98-110 [facility] ([place] Comment on above: Performed By: #### T ROPHS, DIMER, TSHR, A1C, LIPID #### [address] [address] CO2 [Moles/Vol] 24 mmol/L Normal 22-32 [facility] ([place] Comment on above: Performed By: #### T ROPHS, DIMER, TSHR, A1C, LIPID #### [address] [address] Creatinine [Mass/Vol] 0.77 mg/dL Normal 0.50-1.20 [facility] ([place] Comment on above: Performed By: #### T ROPHS, DIMER, TSHR, A1C, LIPID #### [address] [address] Electrolyte Balance 8.0 mEq/L Normal 4.0-15.0 [facility] ([place]) Comment on above: Performed By: #### T ROPHS, DIMER, TSHR, A1C, LIPID #### [address] [address] Glucose [Mass/Vol] 132 mg/dL High 70-110 [facility] ([place] Comment on above: Performed By: #### T ROPHS, DIMER, TSHR, A1C, LIPID #### [address] [address] Potassium [Moles/Vol] 4.0 mmol/L Normal 3.5-5.0 [facility] ([place] Comment on above: Performed By: #### T ROPHS, DIMER, TSHR, A1C, LIPID #### [address] [address] Sodium [Moles/Vol] 141 mmol/L Normal 136-145 [facility] ([place] Comment on above: Performed By: #### T ROPHS, DIMER, TSHR, A1C, LIPID #### [place] [address] Urea nitrogen [Mass/Vol] 10.0 mg/dL Normal 8.0-22.0 [facility] ([place] Comment on above: Performed By: #### T ROPHS, DIMER, TSHR, A1C, LIPID #### [address] [address] CBCon 10-01-2023 Erythrocyte distribution width (RBC) [Ratio] 13.4 % Normal 11.5-15.5 [facility] ([place] Comment on above: Performed By: #### T ROPHS, DIMER, TSHR, A1C, LIPID #### [place] [id number] Hematocrit (Bld) [Volume fraction] 39.6 % Normal 34.0-46.0 [facility] ([place] Comment on above: Performed By: #### T ROPHS, DIMER, TSHR, A1C, LIPID #### [place] [id number] Hgb 13.5 G/dL Normal 12.0-16.0 [facility] ([place] Comment on above: Performed By: #### T ROPHS, DIMER, TSHR, A1C, LIPID #### [place] [address] MCH (RBC) [Entitic mass] 30.6 pg Normal 27.0-33.0 [facility] ([place] Comment on above: Performed By: #### T ROPHS, DIMER, TSHR, A1C, LIPID #### [place] [address] MCHC 34.2 G/dL Normal 32.0-36.0 [facility] ([place] Comment on above: Performed By: #### T ROPHS, DIMER, TSHR, A1C, LIPID #### [place] [address] MCV (RBC) [Entitic vol] 89.4 fL Normal 80.0-99.0 [facility] ([place] Comment on above: Performed By: #### T ROPHS, DIMER, TSHR, A1C, LIPID #### [place] [address] Platelet 400 10 3/mcL Normal 150-450 [facility] ([place] Comment on above: Performed By: #### T ROPHS, DIMER, TSHR, A1C, LIPID #### [place] [address] Platelet mean volume (Bld) [Entitic vol] 8.2 fL Normal 6.6-10.5 [facility] ([place] Comment on above: Performed By: #### T ROPHS, DIMER, TSHR, A1C, LIPID #### [place] [address] RBC 4.43 10 6/mcL Normal 4.10-5.30 [facility] ([place] Comment on above: Performed By: #### T ROPHS, DIMER, TSHR, A1C, LIPID #### [place] [address] WBC 10.5 10 3/mcL Normal 4.5-10.8 [facility] ([place] Comment on above: Performed By: #### T ROPHS, DIMER, TSHR, A1C, LIPID #### [place] [address] LABORATORYOrdered By: SYSTEM SYSTEM on 10-01-2023 Basophils [...] 10-01-2023 Magnesium [Mass/Vol] 1.9 mg/dL Normal 1.6-2.4 [facility] ([place] Comment on above: Performed By: #### T CHICO, DIMER, TSHR, A1C, LIPID #### [address] [address] .Auto Diffon 09-30-2023 Basophil, Absolute 0.0 10 3/mcL Normal 0.0-0.3 [facility] ([place]) Comment on above: Performed By: #### T KATELIN GOLDEN ANEU, MDW, CBC, ADIFF, GFR, CMP #### [address] [address] Basophils/100 WBC (Bld) 0.3 % Normal 0.0-2.5 [facility] ([place]) Comment on above: Performed By: #### T KATELIN GOLDEN ANEU, MDW, CBC, ADIFF, GFR, CMP #### [address] [address] Eosinophil, Absolute 0.7 10 3/mcL Normal 0.0-0.7 [facility] ([place] Comment on above: Performed By: #### T ROPHS, PBNP, ANEU, MDW, CBC, ADIFF, GFR, CMP #### [address] [address] Eosinophils/100 WBC (Bld) 6.0 % Normal 0.0-6.0 [facility] ([place] Comment on above: Performed By: #### T CHICO, PBNP, ANEU, MDW, CBC, ADIFF, GFR, CMP #### [address] [address] Lymphocyte, Absolute 3.1 10 3/mcL Normal 0.9-4.3 [facility] ([place]) Comment on above: Performed By: #### T CHICO, PBNP, ANEU, MDW, CBC, ADIFF, GFR, CMP #### [address] [address] Lymphocytes/100 WBC (Bld) 27.9 % Normal 20.0-40.0 [facility] ([place] Comment on above: Performed By: #### T CHICO, PBNP, ANEU, MDW, CBC, ADIFF, GFR, CMP #### [address] [address] Monocyte, Absolute 1.1 10 3/mcL Normal 0.1-1.4 [facility] ([place] Comment on above: Performed By: #### T CHICO, PBNP, ANEU, MDW, CBC, ADIFF, GFR, CMP #### [address] [address] Monocytes/100 WBC (Bld) 9.7 % Normal 2.0-13.0 [facility] ([place] Comment on above: Performed By: #### T CHICO, PBNP, ANEU, MDW, CBC, ADIFF, GFR, CMP #### [address] [address] Neutrophils/100 WBC (Bld) 56.1 % Normal 50.0-75.0 [facility] ([place] Comment on above: Performed By: #### T CHICO, PBNP, ANEU, MDW, CBC, ADIFF, GFR, CMP #### [address] [address] .GFRon 09-30-2023 GFR >60 Normal [facility] ([place] Comment on above: Result Comment: GFR Population [...] T ROPHS, DIMER, TSHR, A1C, LIPID #### [address] [address] GFR Non- >60 Normal [facility] ([place] Comment on above: Result Comment: GFR Population [...] T ROPHS, DIMER, TSHR, A1C, LIPID #### [address] [address] .MDWon 09-30-2023 Monocyte Distribution Width 18.98 Normal 0.00-20.00 [facility] ([place] Comment on above: Result Comment: For ED adult patients suspected of sepsis, MDW<=20.0 does not rule out sepsis or risk of sepsis Performed By: #### T ROPHS, DIMER, TSHR, A1C, LIPID #### [address] [address] .NEUABSon 09-30-2023 Neutrophil, Absolute 6.2 10 3/mcL Normal 2.3-8.1 [facility] ([place] Comment on above: Performed By: #### T CHICO, DIMER, TSHR, A1C, LIPID #### [address] [address] CBCon 09-30-2023 Erythrocyte distribution width (RBC) [Ratio] 13.8 % Normal 11.5-15.5 [facility] ([place] Comment on above: Performed By: #### T CHICO, KATELIN, ANEU, MDW, CBC, ADIFF, GFR, CMP #### [place] [address] Hematocrit (Bld) [Volume fraction] 41.8 % Normal 34.0-46.0 [facility] ([place] Comment on above: Performed By: #### T CHICO, KATELIN, ANEU, MDW, CBC, ADIFF, GFR, CMP #### [place] [address] Hgb 14.1 G/dL Normal 12.0-16.0 [facility] ([place] Comment on above: Performed By: #### T CHICO, KATELIN, ANEU, MDW, CBC, ADIFF, GFR, CMP #### [place] [address] MCH (RBC) [Entitic mass] 30.5 pg Normal 27.0-33.0 [facility] ([place] Comment on above: Performed By: #### T CHICO, KATELIN, ANEU, MDW, CBC, ADIFF, GFR, CMP #### [place] [id number] MCHC 33.7 G/dL Normal 32.0-36.0 [facility] ([place] Comment on above: Performed By: #### T CHICO, PBNP, ANEU, MDW, CBC, ADIFF, GFR, CMP #### [place] [id number] MCV (RBC) [Entitic vol] 90.6 fL Normal 80.0-99.0 [facility] ([place] Comment on above: Performed By: #### T CHICO, KATELIN, SUSY, MDW, CBC, ADIFF, GFR, CMP #### [place] [address] Platelet 433 10 3/mcL Normal 150-450 [facility] ([place] Comment on above: Performed By: #### T CHICO, KATELIN, ANEU, MDW, CBC, ADIFF, GFR, CMP #### [place] [address] Platelet mean volume (Bld) [Entitic vol] 8.6 fL Normal 6.6-10.5 [facility] ([place] Comment on above: Performed By: #### T CHICO, KATELIN, ANEU, MDW, CBC, ADIFF, GFR, CMP #### [place] [address] RBC 4.62 10 6/mcL Normal 4.10-5.30 [facility] ([place] Comment on above: Performed By: #### T CHICO, KATELIN, ANEU, MDW, CBC, ADIFF, GFR, CMP #### [place] [id number] WBC 11.0 10 3/mcL High 4.5-10.8 [facility] ([place] Comment on above: Performed By: #### T CHICO, KATELIN, ANEU, MDW, CBC, ADIFF, GFR, CMP #### [place] [address] CMPon 09-30-2023 Albumin Level 3.8 G/dL Normal 3.2-4.8 [facility] ([place] Comment on above: Performed By: #### T CHICO, DIMER, TSHR, A1C, LIPID #### [place] [address] Albumin/Globulin [Mass ratio] 1.2 {ratio} Normal 0.9-1.6 [facility] ([place] Comment on above: Performed By: #### T CHICO, DIMER, TSHR, A1C, LIPID #### [id number] [id number] ALP [Catalytic activity/Vol] 125 U/L Normal 38-126 [facility] ([place] Comment on above: Performed By: #### T ROPHS, DIMER, TSHR, A1C, LIPID #### [address] [address] ALT [Catalytic activity/Vol] 24 U/L Normal 10-49 [facility] ([place] Comment on above: Performed By: #### T ROPHS, DIMER, TSHR, A1C, LIPID #### [address] [address] AST [Catalytic activity/Vol] 25 U/L Normal 8-34 [facility] ([place] Comment on above: Performed By: #### T RICHHS, DIMER, TSHR, A1C, LIPID #### [place] [id number] Bili Total 0.20 mg/dL Normal 0.20-1.20 [facility] ([place]) Comment on above: Result Comment: Use of this assay is not recommended for patients undergoing treatment with eltrombopag due to the potential for falsely elevated results. Performed By: #### T CHICO, DIMER, TSHR, A1C, LIPID #### [place] [id number] BUN/Creatinine Ratio 16.7 ratio Normal 10.0-22.0 [facility] ([place]) Comment on above: Performed By: #### T CHICO, DIMER, TSHR, A1C, LIPID #### [address] [address] Calcium [Mass/Vol] 8.9 mg/dL Normal 8.7-10.4 [facility] ([place]) Comment on above: Performed By: #### T ROPHS, DIMER, TSHR, A1C, LIPID #### [address] [address] Chloride [Moles/Vol] 103 mmol/L Normal 98-110 [facility] ([place] Comment on above: Performed By: #### T ROPHS, DIMER, TSHR, A1C, LIPID #### [address] [address] CO2 [Moles/Vol] 30 mmol/L Normal 22-32 [facility] ([place] Comment on above: Performed By: #### T CHICO, DIMER, TSHR, A1C, LIPID #### [address] [address] Creatinine [Mass/Vol] 0.78 mg/dL Normal 0.50-1.20 [facility] ([place] Comment on above: Performed By: #### T ROPHS, DIMER, TSHR, A1C, LIPID #### [address] [address] Electrolyte Balance 4.0 mEq/L Normal 4.0-15.0 [facility] ([place]) Comment on above: Performed By: #### T CHICO, DIMER, TSHR, A1C, LIPID #### [address] [address] Globulin 3.1 G/dL Normal 1.5-3.8 [facility] ([place] Comment on above: Performed By: #### T CHICO, DIMER, TSHR, A1C, LIPID #### [address] [address] Glucose [Mass/Vol] 138 mg/dL High 70-110 [facility] ([place]) Comment on above: Performed By: #### T ROPSTEPHEN, DIMER, TSHR, A1C, LIPID #### [address] [address] Potassium [Moles/Vol] 4.0 mmol/L Normal 3.5-5.0 [facility] ([place] Comment on above: Performed By: #### T ROPHS, DIMER, TSHR, A1C, LIPID #### [address] [address] Sodium [Moles/Vol] 137 mmol/L Normal 136-145 [facility] ([place]) Comment on above: Performed By: #### T ROPHS, DIMER, TSHR, A1C, LIPID #### [address] [address] Total Protein 6.9 G/dL Normal 5.7-8.2 [facility] ([place]) Comment on above: Result Comment: No te - New Reference Range in effect 19 Performed By: #### T CHICO, DIMER, TSHR, A1C, LIPID #### [place] [id number] [place] [address] Urea nitrogen [Mass/Vol] 13.0 mg/dL Normal 8.0-22.0 [facility] ([place]) Comment on above: Performed By: #### T CHICO, DIMER, TSHR, A1C, LIPID #### [place] [id number] [place] [address] DIMERon 09-30-2023 D-Dimer <200 Normal 0-230 [facility] ([place]) Comment on above: Order Comment: Blue top [...] T CHICO, DIMER, TSHR, A1C, LIPID #### [address] [address] LABORATORYOrdered By: Rene Randall on 09-30-2023 Cholesterol [...] tests should be performed accordingly. LABORATORYOrdered By: [employer] SYSTEM on 09-30-2023 HbA1c (Bld) [Mass fraction] [...] (S/P/Bld) [Vol rate/Area] ml/min/1.73sqm Invalid Interpretation Code [facility] Comment on above: Interpretive Data: GFR Population [...] (S/P/Bld) [Vol rate/Area] ml/min/1.73sqm Invalid Interpretation Code [facility] Comment on above: Interpretive Data: GFR Population [...] 3.1 G/dL Normal 1.5 - 3.8 G/dL [facility] Glucose [Mass/Vol] 138 mg/dL High 70 - [...] ng/L Male: 0-54 ng/L Testing performed on [employer] analyzer using direct chemiluminescent technology. Urea nitrogen [Mass/Vol] 13.0 mg/dL Normal 8.0 - 22.0 mg/dL ADM SS Urea nitrogen/Creatinine [Mass ratio] 16.7 ratio Normal 10.0 - 22.0 ratio AH ADM SS WBC (Bld) [#/Vol] 11.0 103/mcL High 4.5 - 10.8 10^3/mcL AH Workflow SS LIPIDon 09-30-2023 Cholesterol [Mass/Vol] 218 mg/dL High 50-199 [facility] ([place]) Comment on above: Result Comment: Chol esterol Reference Interval: Less than 200 Desirable 200-239 Borderline high risk 240 and above High risk Performed By: #### Fredrick GOLDEN, DIMER, TSHR, A1C, LIPID #### [address] [address] Cholesterol in HDL [Mass/Vol] 61 mg/dL High 40-59 [facility] ([place]) Comment on above: Performed By: #### Fredrick GOLDEN, DIMER, TSHR, A1C, LIPID #### [address] [address] Cholesterol in LDL [Mass/Vol] 132 mg/dL High 0-129 [facility] ([place]) Comment on above: Performed By: #### Fredrick GOLDEN, DIMER, TSHR, A1C, LIPID #### [address] [address] Triglyceride [Mass/Vol] 127 mg/dL Normal 3-149 [facility] ([place]) Comment on above: Performed By: #### Fredrick GOLDEN, DIMER, TSHR, A1C, LIPID #### [address] [address] PBNPon 09-30-2023 Natriuretic peptide B (Bld) [Mass/Vol] 354 pg/mL Normal 0-900 [facility] ([place]) Comment on above: Performed By: #### T CHICO, DIMER, TSHR, A1C, LIPID #### [place] [id number] TROPHSon 09-30-2023 High Sensitivity Troponin I <3 Normal 0-34 [facility] ([place]) Comment on above: Order Comment: Blue top hemolyzed; please recollect; spoke with Nabeel in ER:18:54 Result Comment: High Sensitive Troponin I Reference Ranges: Female: 0-34 ng/L Male: 0-54 ng/L Testing performed on [employer] IM analyzer using direct chemiluminescent technology. Performed By: #### T CHICO, DIMER, TSHR, A1C, LIPID #### [place] [address] High Sensitivity Troponin I <3 Normal 0-34 [facility] ([place] Comment on above: Result Comment: High Sensitive Troponin I Reference Ranges: Female: 0-34 ng/L Male: 0-54 ng/L Testing performed on [employer] IM analyzer using direct chemiluminescent technology. Performed By: #### T CHICO, DIMER, TSHR, A1C, LIPID #### [place] [address] High Sensitivity Troponin I <3 Normal 0-34 [facility] ([place]) Comment on above: Result Comment: High Sensitive Troponin I Reference Ranges: Female: 0-34 ng/L Male: 0-54 ng/L Testing performed on [employer] IM analyzer using direct chemiluminescent technology. Performed By: #### T ROPHS #### [place] [address] TSHRon 09-30-2023 TSH 2.780 mIU/mL Normal 0.550-4.780 [facility] ([place]) Comment on above: Result Comment: No te - New Reference Range in effect 19 Performed By: #### T RICHHS, DIMER, TSHR, A1C, LIPID #### [place] [id number] UAon 09-30-2023 Color (U) Yellow Normal [facility] ([place]) Comment on above: Performed By: #### U A #### [place] [address] Glucose (U) [Mass/Vol] Negative Normal Negative [facility] ([place]) Comment on above: Performed By: #### U A #### [place] [id number] Ketones Ql (U) Negative Normal Neg-Trace [facility] ([place]) Comment on above: Performed By: #### U A #### [place] [address] UA Appear Clear Normal Clear [facility] ([place]) Comment on above: Performed By: #### U A #### [place] [address] UA Blood Negative Normal Neg-Trace [facility] ([place]) Comment on above: Performed By: #### U A #### [place] [address] UA Leuk Est Negative Normal Negative [facility] ([place]) Comment on above: Performed By: #### U A #### [place] [address] UA Nitrite Negative Normal Negative [facility] ([place]) Comment on above: Performed By: #### U A #### [place] [address] UA pH 5.5 Normal 5.0 - 8.0 [facility] ([place]) Comment on above: Performed By: #### U A #### [place] [address] UA Protein Negative Normal Negative [facility] ([place]) Comment on above: Performed By: #### U A #### [place] [address] UA Spec Grav <=1.005 Abnormal 1.006-1.029 [facility] ([place]) Comment on above: Performed By: #### U A #### [place] [address] UA Specimen Type Void Normal [facility] ([place]) Comment on above: Performed By: #### U A #### [facility] [address] [place] [address] UA Urobilinogen 0.2 E.U./dL Normal 0.2-1.0 [facility] ([place]) Comment on above: Performed By: #### U A #### [facility] [address] [place] [address] Urobilinogen (U) [Mass/Vol] Negative Normal Neg-Trace [facility] ([place]) Comment on above: Performed By: #### U A #### [facility] [address] [place] [address] XR CHEST 1 VIEWon 09-30-2023 XR CHEST [...] 09/30/2023 2:49:27 PM Ordering Provider: DONIS Tao [facility] ([place]) No Panel Informationon 01-31 Table formatting fro [...] of bowel preparation was evaluated using the Eek Bowel Preparation Scale with scores of: right [...] AM Specimens No specimens collected Procedure Location [facility] External Facility [facility] [address] [employer] [facility] [id number] Ref[place] [address] [employer] [facility] Department Of [place] [address] Procedure Provider Ángel Vicente DO [facility] Work Phone: [facility] Work Phone: Radiology Study observation (narrative) [facility] Work Phone: ANTI-DNA [DS]on 11-01-2022 ANTI-DNA [DS] <1.0 Normal [facility] Comment on above: Result Comment: REF VALUES NEGATIVE: <= 4 IU/ML EQUIVOCAL: 5- 9 IU/ML POSITIVE: >=10 IU/ML Performed By: #### D NADS #### [facility] [address] [place] [address] Anti-dsDNA (Double Stranded) Antibodieson 11-01-2022 DNA double strand Ab Qn (S) [IU]/mL -[facility] Work Phone: Comment on above: REF VALUESNEGATIVE: <= 4 IU/MLEQUIVOCAL: 5- 9 IU/MLPOSITIVE: >=10 IU/ML C Reactive Protein, Serumon 11-01-2022 CRP [Mass/Vol] 1.78 mg/dL Abnormal [facility] Work Phone: Comment on above: REF VALUE< 1.00 C-REACTIVE PROTEINon 023 C-REACTIVE PROTEIN 1.78 mg/dL Abnormal [facility] Comment on above: Result Comment: REF VALUE < 1.00 Performed By: #### C RP #### [facility] [address] [place] [address] C3 COMPLEMENTon 11-01-2022 C3 COMPLEMENT 158 mg/dL Normal 87 - 200 [facility] Comment on above: Performed By: #### V TDOH #### [place] [address] [place] [address] C3 Complement, Serumon 11-01 Complement C3 [Mass/Vol] 158 mg/dL 87 - 200 [facility] Work Phone: C4 COMPLEMENTon 11-01-2022 C4 COMPLEMENT 71 mg/dL High 10 - 50 [facility] Comment on above: Performed By: #### C 4 #### [facility] [address] [place] [address] C4 Complement, Serumon 11-01 Complement C4 [Mass/Vol] 71 mg/dL above high threshold 10 - 50 [facility] Work Phone: CBC AND DIFFERENTIALon 11-01 % AUTOMATED IMMATURE GRAN 0.2 % Normal 0.0 - 0.9 [facility] Comment on above: Result Comment: Jahaira ture Granulocyte Count (IG) includes promyelocytes, myelocytes and metamyelocytes but does not include bands. Percent differential counts (%) should be interpreted in the context of the absolute cell counts (cells/L). Performed By: #### V TDOH #### [facility] [address] [place] [address] Basophils (Bld) [#/Vol] 0.16 10*3/uL High 0.00 - 0.10 [facility] Comment on above: Performed By: #### V TDOH #### [place] [address] [place] [address] Basophils/100 WBC (Bld) 1.5 % Normal 0.0 - 2.0 [facility] Comment on above: Performed By: #### V TDOH #### [facility] [address] [place] [address] Eosinophils (Bld) [#/Vol] 0.42 10*3/uL Normal 0.00 - 0.70 [facility] Comment on above: Performed By: #### V TDOH #### [place] [address] [place] [address] Eosinophils/100 WBC (Bld) 3.9 % Normal 0.0 - 6.0 [facility] Comment on above: Performed By: #### V TDOH #### [facility] [address] [place] [address] Erythrocyte distribution width (RBC) [Ratio] 14.1 % Normal 11.5 - 14.5 [facility] Comment on above: Performed By: #### V TDOH #### [place] [address] [place] [address] Hematocrit (Bld) [Volume fraction] 44.6 % Normal 36.0 - 46.0 [facility] Comment on above: Performed By: #### V TDOH #### [place] [address] [place] [address] Hemoglobin (Bld) [Mass/Vol] 13.8 g/dL Normal 12.0 - 16.0 [facility] Comment on above: Performed By: #### V TDOH #### [facility] [address] [place] [address] Lymphocytes (Bld) [#/Vol] 2.81 10*3/uL Normal 1.20 - 4.80 [facility] Comment on above: Performed By: #### V TDOH #### [facility] [address] [place] [address] Lymphocytes/100 WBC (Bld) 26.3 % Normal 13.0 - 44.0 [facility] Comment on above: Performed By: #### V TDOH #### [facility] [address] [place] [address] MCHC (RBC) [Mass/Vol] 30.9 g/dL Low 32.0 - 36.0 [facility] Comment on above: Performed By: #### V TDOH #### [facility] [address] [place] [address] MCV (RBC) [Entitic vol] 93 fL Normal 80 - 100 [facility] Comment on above: Performed By: #### V TDOH #### [facility] [address] [place] [address] Monocytes (Bld) [#/Vol] 1.25 10*3/uL High 0.10 - 1.00 [facility] Comment on above: Performed By: #### V TDOH #### [facility] [address] [place] [address] Monocytes/100 WBC (Bld) 11.7 % Normal 2.0 - 10.0 [facility] Comment on above: Performed By: #### V TDOH #### [facility] [address] [place] [address] Neutrophils (Bld) [#/Vol] 6.03 10*3/uL Normal 1.20 - 7.70 [facility] Comment on above: Performed By: #### V TDOH #### [facility] [address] [place] [address] Neutrophils/100 WBC (Bld) 56.4 % Normal 40.0 - 80.0 [facility] Comment on above: Performed By: #### V TDOH #### [facility] [address] [place] [address] NUCLEATED RBC 0.0 /100 WBC Normal 0.0-0.0 [facility] Comment on above: Performed By: #### V TDOH #### [facility] [address] [place] [address] Platelets (Bld) [#/Vol] 465 10*3/uL High 150 - 450 [facility] Comment on above: Performed By: #### V TDOH #### [facility] [address] [place] [address] RBC 4.78 x10E12/L Normal 4.00 - 5.20 [facility] Comment on above: Performed By: #### V TDOH #### [facility] [address] [place] [address] WBC (Bld) [#/Vol] 10.7 10*3/uL Normal 4.4 - 11.3 [facility] Comment on above: Performed By: #### V TDOH #### [facility] [address] [place] [address] COMPREHENSIVE PANELon 2022 Albumin [Mass/Vol] 4.2 g/dL Normal 3.4 - 5.0 [facility] Comment on above: Performed By: #### C MP #### [facility] [address] [place] [address] ALP [Catalytic activity/Vol] 89 U/L Normal 33 - 110 [facility] Comment on above: Performed By: #### C MP #### [facility] [address] [place] [address] ALT [Catalytic activity/Vol] 13 U/L Normal 7 - 45 [facility] Comment on above: Result Comment: Loretta ents treated with Sulfasalazine may generate falsely decreased results for ALT. Performed By: #### C MP #### [facility] [address] [place] [address] Anion gap [Moles/Vol] 14 mmol/L Normal 10 - 20 [facility] Comment on above: Performed By: #### C MP #### [facility] [address] [place] [address] AST [Catalytic activity/Vol] 16 U/L Normal 9 - 39 [facility] Comment on above: Performed By: #### C MP #### [facility] [address] [place] [address] Bilirubin [Mass/Vol] 0.5 mg/dL Normal 0.0 - 1.2 [facility] Comment on above: Performed By: #### C MP #### [facility] [address] [place] [address] Calcium [Mass/Vol] 9.9 mg/dL Normal 8.6 - 10.6 [facility] Comment on above: Performed By: #### C MP #### [facility] [address] [place] [address] Chloride [Moles/Vol] 99 mmol/L Normal 98 - 107 [facility] Comment on above: Performed By: #### C MP #### [facility] [address] [place] [address] Creatinine [Mass/Vol] 0.91 mg/dL Normal 0.50 - 1.05 [facility] Comment on above: Performed By: #### C MP #### [facility] [address] [place] [address] GFR/1.73 sq M.predicted among non-blacks MDRD (S/P/Bld) [Vol rate/Area] 77 mL/min/{1.73_m2} Normal >90 [facility] Comment on above: Result Comment: CALC ULATIONS OF ESTIMATED GFR ARE PERFORMED USING THE 2020 CKD-EPI STUDY REFIT EQUATION WITHOUT THE RACE VARIABLE FOR THE IDMS-TRACEABLE CREATININE METHODS. https://jasn.asnjournals.org/content/early/ASN.25975842 88 Performed By: #### C MP #### [facility] [address] [place] [address] Glucose [Mass/Vol] 102 mg/dL High 74 - 99 [facility] Comment on above: Performed By: #### C MP #### [facility] [address] [place] [address] HCO3 (Bld) [Moles/Vol] 30 mmol/L Normal 21 - 32 [facility] Comment on above: Performed By: #### C MP #### [facility] [address] [place] [address] Potassium [Moles/Vol] 4.8 mmol/L Normal 3.5 - 5.3 [facility] Comment on above: Performed By: #### C MP #### [facility] [address] [place] [address] Protein [Mass/Vol] 7.0 g/dL Normal 6.4 - 8.2 [facility] Comment on above: Performed By: #### C MP #### [facility] [address] [place] [address] Sodium [Moles/Vol] 138 mmol/L Normal 136 - 145 [facility] Comment on above: Performed By: #### C MP #### [facility] [address] [place] [address] Urea nitrogen [Mass/Vol] 16 mg/dL Normal 6 - 23 [facility] Comment on above: Performed By: #### C MP #### [facility] [address] [place] [address] Complete Blood Count + Diffe julieton 11-01-2022 Basophils/100 WBC (Bld) 1.5 % 0.0 - 2.0 -[employer] Work Phone: [phone] Erythrocyte distribution width (RBC) [Ratio] 14.1 % See Below [facility] Work Phone: [phone] Comment on above: Reference Range: 11. 5 - 14.5 Hematocrit (Bld) [Volume fraction] 44.6 % See Below [facility] Work Phone: [phone] Comment on above: Reference Range: 36. 0 - 46.0 Hemoglobin (Bld) [Mass/Vol] 13.8 g/dL See Below [facility] Work Phone: [phone] Comment on above: Reference Range: 12. 0 - 16.0 Lymphocytes/100 WBC (Bld) 26.3 % See Below [facility] Work Phone: [phone] Comment on above: Reference Range: 13. 0 - 44.0 MCHC (RBC) [Mass/Vol] 30.9 g/dL below low threshold See Below [facility] Work Phone: [phone] Comment on above: Reference Range: 32. 0 - 36.0 MCV (RBC) [Entitic vol] 93 fL 80 - 100 -[facility] Work Phone: [phone] Monocytes/100 WBC (Bld) 11.7 % 2.0 - 10.0 -[facility] Work Phone: [phone] Neutrophils/100 WBC (Bld) 56.4 % See Below [facility] Work Phone: [phone] Comment on above: Reference Range: 40. 0 - 80.0 Platelets (Bld) [#/Vol] 465 10*3/uL above high threshold 150 - 450 -[facility] Work Phone: [phone] RBC (Bld) [#/Vol] 4.78 {x10E12/L} See Below [facility] Work Phone: [phone] Comment on above: Reference Range: 4.0 0 - 5.20 WBC (Bld) [#/Vol] 10.7 10*3/uL 4.4 - 11.3 -[facility] Work Phone: [phone] Complete Blood Count + Differential 0.16 {x10E9/L} above high threshold See Below [facility] Work Phone: [phone] Comment on above: Reference Range: 0.0 0 - 0.10 Complete Blood Count + Differential 0.42 {x10E9/L} See Below [facility] Work Phone: [phone] Comment on above: Reference Range: 0.0 0 - 0.70 Complete Blood Count + Differential 1.25 {x10E9/L} above high threshold See Below [facility] Work Phone: [phone] Comment on above: Reference Range: 0.1 0 - 1.00 Complete Blood Count + Differential 2.81 {x10E9/L} See Below [facility] Work Phone: [phone] Comment on above: Reference Range: 1.2 0 - 4.80 Complete Blood Count + Differential 6.03 {x10E9/L} See Below [facility] Work Phone: [phone] Comment on above: Reference Range: 1.2 0 - 7.70 Complete Blood Count + Differential 3.9 % 0.0 - 6.0 [facility] Work Phone: [phone] Complete Blood Count + Differential 0.2 % 0.0 - 0.9 [facility] Work Phone: [phone] Comment on above: Immature Granulocyte Count (IG) includes promyelocytes, myelocytes and metamyelocytes but does not include bands. Percent differential counts (%) should be interpreted in the context of the absolute cell counts (cells/L). Complete Blood Count + Differential 0.0 {/100_WBC} 0.0-0.0 [facility] Work Phone: Follow Up (Rheumatology)on 11-01-2022 Follow [...] (M32.9) Vitamin (more content not included)... Normal [facility] - Chemistry and C hemistry - challengeon 11-01-2022 Albumin BCP dye [Mass/Vol] 4.2 g/dL 3.4 - 5.0 -[facility] Work Phone: [phone] ALP [Catalytic activity/Vol] 89 U/L 33 - 110 [facility] Work Phone: [phone] ALT With P-5'-P [Catalytic activity/Vol] 13 U/L 7 - 45 -[facility] Work Phone: [phone] Comment on above: Patients treated wit h Sulfasalazine may generate falsely decreased results for ALT. Anion gap [Moles/Vol] 14 mmol/L 10 - 20 -[facility] Work Phone: [phone] AST With P-5'-P [Catalytic activity/Vol] 16 U/L 9 - 39 -[facility] Work Phone: [phone] Bilirubin [Mass/Vol] 0.5 mg/dL 0.0 - 1.2 -[facility] Work Phone: [phone] Calcium [Mass/Vol] 9.9 mg/dL 8.6 - 10.6 -[facility] Work Phone: [phone] Chloride [Moles/Vol] 99 mmol/L 98 - 107 -[facility] Work Phone: [phone] CO2 [Moles/Vol] 30 mmol/L 21 - 32 -[facility] Work Phone: [phone] Creatinine [Mass/Vol] 0.91 mg/dL See Below -[facility] Work Phone: [phone] Comment on above: Reference Range: 0.5 0 - 1.05 Glucose [Mass/Vol] 102 mg/dL above high threshold 74 - 99 -[facility] Work Phone: [phone] Potassium [Moles/Vol] 4.8 mmol/L 3.5 - 5.3 -[facility] Work Phone: [phone] Protein [Mass/Vol] 7.0 g/dL 6.4 - 8.2 MP-Eliza [facility] Work Phone: [phone] Sodium [Moles/Vol] 138 mmol/L 136 - 145 MP-Eliza ect [facility] Work Phone: [phone] Urea nitrogen [Mass/Vol] 16 mg/dL 6 - 23 -[facility] Work Phone: [phone] Panel Informationon 11-01 77 {mL/min/1.73m2} >90 MP-Eliza ect [facility] Work Phone: [phone] Comment on above: CALCULATIONS OF BRANDON MATED GFR ARE PERFORMED USING THE 2020 CKD-EPI STUDY REFIT EQUATION WITHOUT THE RACE VARIABLE FOR THE IDMS-TRACEABLE CREATININE METHODS.https://jasn.asnjournals.org/content/early/ASN. 3308674807 SEDIMENTATION RATE, ERYTHROC YTEon 11-01-2022 SEDIMENTATION RATE, ERYTHROCYTE 35 mm/h High 0 - 20 [facility] Comment on above: Performed By: #### E SRWS #### [facility] [address] [place] [address] Sedimentation Rate, Erythroc yteon 11-01-2022 ESR (Bld) [Velocity] 35 mm/h above high threshold 0 - 20 [facility] Work Phone: [phone] Tobacco Screening.on 023 Adult depression screening assessment No -[facility] Work Phone: [phone] Fall risk assessment a) No falls within the last year -[facility] Work Phone: [phone] Tobacco use status CPHS b) No -[facility] Work Phone: [phone] Office Visit (Internal Medic ine)on 10-10-2022 [...] hypertension; JONN = N; Verified Transmission to [place] [address]; Last Updated By: Playrcart; 10/10/2022 11:03:52 AM Chest pressure IO EKG Electrocardiogram- 12 Lead; Status:Active - Perform Order; Requested for:[id number]; Perform:In Office; Due:[id number];Ordered; For:Chest pressure; Ordered By:Giselle Boykin; DM2 (diabetes mellitus, type 2) Start: Ozempic (0.25 or 0.5 MG/DOSE) 2 MG/3ML Subcutaneous Solution Pen-injector; Inject 0.25 mg weekly for 4 weeks, then increase to 0.5 mg dose Rx By: Giselle Boykin; Dispense: 0 Days ; #:1 X 3 ML Pen; Refill: 1;For: DM2 (diabetes mellitus, type 2); JONN = N; Verified Transmission to [place] [address]; Last Updated By: Playrcart; 10/10/2022 11:03:54 AM; COUPON: Available Hand dermatitis Start: Clobetasol Propionate 0.05 % External Cream; APPLY SPARINGLY TO AFFECTED AREA(S) TWICE DAILY Rx By: Giselle Boykin; Dispense: 0 Days ; #:1 X 30 GM Tube; Refill: 0;For: Hand dermatitis; JONN = N; Verified Transmission to [place] [id number]; Last Updated By: Playrcart; 10/10/2022 11:03:53 AM Situational anxiety Renew: hydrOXYzine HCl - 25 MG Oral Tablet; TAKE 1 TABLET BY MOUTH TWICE DAILY NEEDED FOR ANXIETY Rx By: Giselle Boykin; Dispense: 0 Days ; #:30 Tablet; Refill: 1;For: Situational anxiety; JONN = N; Verified Transmission to [facility]; Last Updated By: System, [employer]; 10/10/2022 11:03:52 AM Provider Impressions Chest pressure [...] 2020 History (more content not included)... Normal [facility] Tobacco Screening.on 023 Fall risk assessment a) No falls within the last year -[facility] Work Phone: Tobacco use status CPHS b) No -[facility] Work Phone: CORONAVIRUS 2019 BY PCRon SARS-CoV-2 (COVID-19) RNA CARLY+probe Ql (Unsp spec) Not detected Normal Not Detected [facility] Comment on above: Result Comment: . This assay is designed to detect the ORF1a/b and E genes of SARS-CoV-2 via nucleic acid amplification. A Not Detected result does not preclude 2019-nCoV infection since the adequacy of sample collection and/or low viral burden may result in presence of viral nucleic acids below the clinical sensitivity of this test method. Fact sheet for providers: https://www.fda.gov/media/234321/download Fact sheet for patients: https://www.fda.gov/media/321058/download This test has received FDA Emergency Use Authorization (EUA) and has been verified for use by [facility] ([facility]). This test is only authorized for the duration of time that circumstances exist to justify the authorization of the emergency use of in vitro diagnostic tests for the detection of SARS-CoV-2 virus and/or diagnosis of COVID-19 infection under section 564(b)(1) of the Act, 21 U.S.C. 360bbb-3(b)(1), unless the authorization is terminated or revoked sooner. [facility] is certified under CLIA-88 as qualified to perform high complexity testing. Testing is performed in the [facility] laboratories located at [address] [place] [address]. Performed By: #### V TDOH #### [address] [place] [address] Covid 19 Resultson 3 SARS-CoV-2 (COVID-19) RNA [...] You may also be contacted by the [place] Department of Health to see if any [...] or Naproxen (Aleve) can also be used. Paph-hdk-hiwezvs cough and cold medicines can be used according to the instructions on the package. Some rlto-zag-qxzxatr medicines also contain acetaminophen. Make sure you [...] water are not available, use alcohol-based hand stereoptic projection topographer. Avoid touching your eyes, nose, and mouth [...] 24 opal (more content not included)... Normal [facility] CORONAVIRUS 2019 BY PCRon Lab Specimen Source Nasal, Nasopharyngeal Normal [facility] Comment on above: Performed By: #### V TDOH #### [facility] [address] [place] [address] Coronavirus 2019 RNA by PCR, Symptomaticon 08-30-2022 Coronavirus 2019 RNA by PCR, Symptomatic Not detected Normal See Below -[facility] Work Phone: Comment on above: SOURCE: [...] this test method. Fact sheet for providers: https://www.fda.gov/media/435771/download Fact sheet for patients: https://www.fda.gov/media/305205/download This test has received FDA Emergency Use Authorization (EUA) and has been verified for use by [facility] ([facility]). This test is only authorized for the duration of time that circumstances exist to justify the authorization of the emergency use of in vitro diagnostic tests for the detection of SARS-CoV-2 virus and/or diagnosis of COVID-19 infection under section 564(b)(1) of the Act, 21 U.S.C. 360bbb-3(b)(1), unless the authorization is terminated or revoked sooner.[facility] is certified under CLIA-88 as qualified to perform high complexity testing. Testing is performed in the [facility] laboratories located at [address] [place] [address] Rapid Strepon 08-30-2022 S. pyogenes Ag Ql (Throat) Negative [facility] Work Phone: Office Visit (Internal Medic ine)on 08-30-2022 Follow-up visit Diagnoses/Problems Assessed Sinobronchitis (473.9,490) (J32.9,J40) Sore throat (462) (J02.9) Orders Sinobronchitis Start: Amoxicillin-Pot Clavulanate 875-125 MG Oral Tablet; Take 1 tablet twice daily Rx By: Yasmine Lopez; Dispense: 10 Days ; #:20 Tablet; Refill: 0;For: Sinobronchitis; JONN = N; Verified Transmission to [facility] 1945; Last Updated By: Rosy Lora; 08/30/2022 3:15:32 PM Start: Promethazine-DM 6.25-15 MG/5ML Oral Syrup (Promethazine-DM); TAKE 5 ML EVERY 4 TO 6 HOURS NEEDED FOR COUGH Rx By: Yasmine Lopez; Dispense: 4 Days ; #:1 X 118 ML Bottle; Refill: 0;For: Sinobronchitis; JONN = N; Verified Transmission to [facility]; Last Updated By: Rosy Lora; 08/30/2022 3:15:32 PM Sore throat Coronavirus 2019 RNA by PCR, Symptomatic; Status:Active - Retrospective Authorization; Requested for:30Aug2022; Perform:Lab Services - Lab To Draw (Non-Blood Test); Due:[id number]; Last Updated By:Graciela Clarke; 08/30/2022 3:37:49 PM;Ordered; For:Sore throat; Ordered By:Yasmine Lopez; IO Rapid Strep; Status:Resulted - Requires Verification,Retrospectiv e Authorization; Done: 30Aug2022 03:14PM Performed:In Office; Due:[id number]; Last Updated By:Lyn Lambert; 08/30/2022 3:15:09 PM;Ordered; [...] if you want to find out about social worker masters available to you dial 211 24 hour hot line telephone numbers: Suicide or Mental Health Mobile Crisis Help Line 9963212039 Child Abuse or Neglect [id number] Elder Abuse or Neglect [phone] Rape Crisis [phone] Domestic Violence [phone] Narcotics Anonymous [phone] Mobile crisis hotline [phone] ( frontline health service ) This medical [...] strep, coughing up mucous History of Present Ccirmrb42-jwqg-pxc female presents today with sore throat and [...] diarrhea (chronic (more content not included)... Normal [facility] Tobacco Screening.on 023 Adult depression screening assessment No [facility] Work Phone: Fall risk assessment a) No falls within the last year [facility] Work Phone: Tobacco use status CPHS b) No [facility] Work Phone: DIGITAL MAMM SCREENING W/ TO [place] 05-11-2022 DIGITAL MAMM SCREENING W/ D[place]TON Patient Name: CHINA ORTIZ STUDY: DIGITAL MAMM SCREENING W/ DALTON; 05/11/2022 10:02 am ACCESSION NUMBER(S): [id number] ORDERING CLINICIAN: GISELLE BOYKIN INDICATION: Screening. COMPARISON: 04/15/2020 FINDINGS: 2D and tomosynthesis images were reviewed at 1 mm slice thickness. There are areas of scattered fibroglandular tissue. No suspicious masses or calcifications are identified. IMPRESSION: No mammographic evidence of malignancy. BI-RADS CATEGORY: Category: 1 - Negative. Recommendation: 1 Year Screening. For any future breast imaging appointments, please call [phone]). Patient letter sent SNORM Electronically signed by: CELIO HAUSER MD Normal [facility] Mamm - Screening Mammogram w / Tomosynthesison 05-11-2022 MG Breast Screening Normal [facility] Work Phone: Office Visit (Internal Medic ine)on [...] hemangioma MRI Liver w/wo Contrast; Status:Active; Requested for:[id number]; Perform: Radiology Services Imaging;Ordered; For:Liver hemangioma; Ordered By:Giselle Boykin; Radiologist to Determine Optimal Study : Y Does the patient have a Cochlear Implant, Pacemaker, Defibrilator, Pacing Wire, Brain Aneurysm Clip, Implanted Nerve or Bone Graft Simulator, Implanted Breast Tissue Bath Steward/Stewardess, Glucose Monitor, or Neulasta Device? : No [...] vomiting; JONN = N; Verified Transmission to [facility]; Last Updated By: SystemFlagr; 05/08/2022 10:12:38 AM PSH: Pancreatectomy distal subtotal, PMH: Splenectomy Gastroenterology Referral Evaluation and Treatment Evaluate AND Treat Status: Hold For - Scheduling Requested for: [id number] Ordered;For: PSH: Pancreatectomy distal subtotal, PMH: Splenectomy; Ordered By: Giselle Boykin Performed: Due: [id number] Provider Impressions Recurrent RUQ pain with nausea, [...] upper abdominal pain. 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 Made her way home and then daughter drove her to ER at [place]. Given IV fluids, had CT scan, concerned [...] of Sec (more content not included)... Normal [facility] Tobacco Screening.on 023 Fall risk assessment a) No falls within the last year [facility] Work Phone: [phone] Tobacco use status CPHS b) No [facility] Work Phone: ANTI-DNA [DS]on 05-03-2022 ANTI-DNA [DS] <1.0 Normal [facility] Comment on above: Result Comment: REF VALUES NEGATIVE: <= 4 IU/ML EQUIVOCAL: 5- 9 IU/ML POSITIVE: >=10 IU/ML Performed By: #### V TDOH #### [facility] [address] [place] [address] Anti-dsDNA (Double Stranded) Antibodieson 05-03-2022 DNA double strand Ab Qn (S) [IU]/mL [facility] Work Phone: Comment on above: REF VALUESNEGATIVE: <= 4 IU/MLEQUIVOCAL: 5- 9 IU/MLPOSITIVE: >=10 IU/ML C Reactive Protein, Serumon 05-03-2022 CRP [Mass/Vol] 0.67 mg/dL [facility] Work Phone: Comment on above: REF VALUE< 1.00 C-REACTIVE PROTEINon 023 C-REACTIVE PROTEIN 0.67 mg/dL Normal [facility] Comment on above: Result Comment: REF VALUE < 1.00 Performed By: #### V TDOH #### [facility] [address] [place] [address] C3 COMPLEMENTon 05-03-2022 C3 COMPLEMENT 139 mg/dL Normal 87 - 200 [facility] Comment on above: Performed By: #### C 3 #### [facility] [address] [place] [address] C3 Complement, Serumon 05-03 Complement C3 [Mass/Vol] 139 mg/dL 87 - 200 [facility] Work Phone: C4 COMPLEMENTon 05-03-2022 C4 COMPLEMENT 74 mg/dL High 10 - 50 [facility] Comment on above: Performed By: #### V TDOH #### [facility] [address] [place] [address] C4 Complement, Serumon 05-03 Complement C4 [Mass/Vol] 74 mg/dL above high threshold 10 - 50 magnify360 [facility] Work Phone: Follow Up (Rheumatology)on 0 05-03-2022 [...] ERYTHROCYTE 35 mm/h High 0 - 20 [facility] Comment on above: Performed By: #### E SRWS #### [facility] [address] [place] [address] Sedimentation Rate, Erythroc yteon 05-03-2022 ESR (Bld) [Velocity] 35 mm/h above high threshold 0 - 20 [facility] Work Phone: Tobacco Screening.on 023 Fall risk assessment b) One or more falls in the last year -[facility] Work Phone: Tobacco use status CPHS b) No [employer] Work Phone: HEMOGLOBIN A1Con 04-05-2022 Glucose [Mass/Vol] 143 mg/dL Normal [facility] Comment on above: Performed By: #### V TDOH #### [facility] [address] [place] [address] HbA1c (Bld) [Mass fraction] 6.6 % Abnormal [facility] Comment on above: Result Comment: Diag nosis of Diabetes-Adults Non-Diabetic: < or = 5.6% Increased risk for developing diabetes: 5.7-6.4% Diagnostic of diabetes: > or = 6.5% . Monitoring of Diabetes Age (y) Therapeutic Goal (%) Adults: >18 <7.0 Pediatrics: 13-18 <7.5 7-12 <8.0 0- 6 7.5-8.5 English Diabetes Association. Diabetes Care 33(S1), Apr 2009. Performed By: #### V TDOH #### [facility] [address] [place] [address] COMPREHENSIVE PANELon 2022 Albumin [Mass/Vol] 4.2 g/dL Normal 3.4 - 5.0 [facility] Comment on above: Performed By: #### C MP #### [facility] [address] [place] [address] ALP [Catalytic activity/Vol] 101 U/L Normal 33 - 110 [facility] Comment on above: Performed By: #### C MP #### [facility] [address] [place] [address] ALT [Catalytic activity/Vol] 10 U/L Normal 7 - 45 [facility] Comment on above: Result Comment: Loretta ents treated with Sulfasalazine may generate falsely decreased results for ALT. Performed By: #### C MP #### [facility] [address] [place] [address] Anion gap [Moles/Vol] 14 mmol/L Normal 10 - 20 [facility] Comment on above: Performed By: #### C MP #### [facility] [address] [place] [address] AST [Catalytic activity/Vol] 15 U/L Normal 9 - 39 [facility] Comment on above: Performed By: #### C MP #### [facility] [address] [place] [address] Bilirubin [Mass/Vol] 0.4 mg/dL Normal 0.0 - 1.2 [facility] Comment on above: Performed By: #### C MP #### [facility] [address] [place] [address] Calcium [Mass/Vol] 9.7 mg/dL Normal 8.6 - 10.6 [facility] Comment on above: Performed By: #### C MP #### [facility] [address] [place] [address] Chloride [Moles/Vol] 104 mmol/L Normal 98 - 107 [facility] Comment on above: Performed By: #### C MP #### [facility] [address] [place] [address] Creatinine [Mass/Vol] 0.93 mg/dL Normal 0.50 - 1.05 [facility] Comment on above: Performed By: #### C MP #### [facility] [address] [place] [address] GFR/1.73 sq M.predicted among non-blacks MDRD (S/P/Bld) [Vol rate/Area] 75 mL/min/{1.73_m2} Normal >90 [facility] Comment on above: Result Comment: CALC ULATIONS OF ESTIMATED GFR ARE PERFORMED USING THE 2020 CKD-EPI STUDY REFIT EQUATION WITHOUT THE RACE VARIABLE FOR THE IDMS-TRACEABLE CREATININE METHODS. https://jasn.asnjournals.org/content//ASN.45718190 88 Performed By: #### C MP #### [facility] [address] [place] [address] Glucose [Mass/Vol] 115 mg/dL High 74 - 99 [facility] Comment on above: Performed By: #### C MP #### [facility] [address] [place] [address] HCO3 (Bld) [Moles/Vol] 27 mmol/L Normal 21 - 32 [facility] Comment on above: Performed By: #### C MP #### [facility] [address] [place] [address] Potassium [Moles/Vol] 5.1 mmol/L Normal 3.5 - 5.3 [facility] Comment on above: Performed By: #### C MP #### [facility] [address] [place] [address] Protein [Mass/Vol] 6.7 g/dL Normal 6.4 - 8.2 [facility] Comment on above: Performed By: #### C MP #### [facility] [address] [place] [address] Sodium [Moles/Vol] 140 mmol/L Normal 136 - 145 [facility] Comment on above: Performed By: #### C MP #### [facility] [address] [place] [address] Urea nitrogen [Mass/Vol] 17 mg/dL Normal 6 - 23 [facility] Comment on above: Performed By: #### C MP #### [facility] [address] [place] [address] Hemoglobin A1Con 04-04-2022 Glucose [Mass/Vol] 143 mg/dL -[facility] Work Phone: HbA1c (Bld) [Mass fraction] 6.6 % Abnormal -[facility] Work Phone: Comment on above: Diagnosis of Diabete s-Adults Non-Diabetic: < or = 5.6% Increased risk for developing diabetes: 5.7-6.4% Diagnostic of diabetes: > or = 6.5%. Monitoring of Diabetes Age (y) Therapeutic Goal (%) Adults: >18 <7.0 Pediatrics: 13-18 <7.5 7-12 <8.0 0- 6 7.5-8.5 English Diabetes Association. Diabetes Care 33(S1), Apr 2009. LIPID PANEL (CORONARY RISK 2 )on 04-04-2022 Cholesterol [Mass/Vol] 182 mg/dL Normal 0 - 199 [facility] Comment on above: Result Comment: . AGE [...] Performed By: #### L IPID #### [facility] [address] [place] [address] Cholesterol in HDL [Mass/Vol] 56.7 mg/dL Normal [facility] Comment on above: Result Comment: . AGE VERY LOW LOW NORMAL HIGH 0-19 Y < 35 < 40 40-45 ---- 20-24 Y ---- < 40 >45 ---- >24 Y ---- < 40 40-60 >60 . Performed By: #### L IPID #### [facility] [address] [place] [address] Cholesterol in LDL [Mass/Vol] 104 mg/dL High 0 - 99 [facility] Comment on above: Result Comment: . NEAR BORD AGE DESIRABLE OPTIMAL HIGH HIGH VERY HIGH 0-19 Y 0 - 109 --- 110-129 >/= 130 ---- 20-24 Y 0 - 119 --- 120-159 >/= 160 ---- >24 Y 0 - 99 100-129 130-159 160-189 >/=190 . Performed By: #### L IPID #### [facility] [address] [place] [address] Cholesterol in VLDL [Mass/Vol] 21 mg/dL Normal 0 - 40 [facility] Comment on above: Performed By: #### L IPID #### [facility] [address] [place] [address] Cholesterol.total/C holesterol in HDL [Mass ratio] 3.2 {ratio} Normal [facility] Comment on above: Result Comment: REF VALUES DESIRABLE < 3.4 HIGH RISK > 5.0 Performed By: #### L IPID #### [facility] [address] [place] [address] Triglyceride [Mass/Vol] 106 mg/dL Normal 0 - 149 [facility] Comment on above: Result Comment: . AGE [...] Performed By: #### L IPID #### [facility] [address] [place] [address] Laboratory - Chemistry and C hemistry - challengeon 04-04-2022 Albumin BCP dye [Mass/Vol] 4.2 g/dL 3.4 - 5.0 [facility] Work Phone: ALP [Catalytic activity/Vol] 101 U/L 33 - 110 [facility] Work Phone: ALT With P-5'-P [Catalytic activity/Vol] 10 U/L 7 - 45 magnify360 [facility] Work Phone: Comment on above: Patients treated wit h Sulfasalazine may generate falsely decreased results for ALT. Anion gap [Moles/Vol] 14 mmol/L 10 - 20 [facility] Work Phone: [phone] AST With P-5'-P [Catalytic activity/Vol] 15 U/L 9 - 39 -[facility] [employer] Work Phone: [phone] Bilirubin [Mass/Vol] 0.4 mg/dL 0.0 - 1.2 -[facility] Work Phone: [phone] Calcium [Mass/Vol] 9.7 mg/dL 8.6 - 10.6 -Eliza ect [facility] Work Phone: [phone] Chloride [Moles/Vol] 104 mmol/L 98 - 107 -[facility] Work Phone: [phone] CO2 [Moles/Vol] 27 mmol/L 21 - 32 -[facility] Work Phone: [phone] Creatinine [Mass/Vol] 0.93 mg/dL See Below -[facility] Work Phone: [phone] Comment on above: Reference Range: 0.5 0 - 1.05 Glucose [Mass/Vol] 115 mg/dL above high threshold 74 - 99 -[facility] Work Phone: [phone] Potassium [Moles/Vol] 5.1 mmol/L 3.5 - 5.3 -[facility] Work Phone: [phone] Protein [Mass/Vol] 6.7 g/dL 6.4 - 8.2 -Eliza ect [facility] Work Phone: [phone] Sodium [Moles/Vol] 140 mmol/L 136 - 145 -Eliza ect [facility] Work Phone: [phone] Urea nitrogen [Mass/Vol] 17 mg/dL 6 - 23 [facility] Work Phone: [phone] Lipid Panelon 04-04-2022 Cholesterol [Mass/Vol] 182 mg/dL 0 - 199 -[facility] Work Phone: Comment on above: . AGE [...] dosing. Cholesterol in HDL [Mass/Vol] 56.7 mg/dL [facility] Work Phone: [phone] Comment on above: . AGE VERY LOW LOW N ORMAL HIGH 0-19 Y < 35 < 40 40-45 ---- 20- 24 Y ---- < 40 >45 ---- >24 Y ---- < 40 40-60 >60. Cholesterol in LDL [Mass/Vol] 104 mg/dL above high threshold 0 - 99 [facility] Work Phone: [phone] Comment on above: . NEAR BORD AGE JOHNATHON RABLE OPTIMAL HIGH HIGH VERY HIGH 0-19 Y 0 - 109 --- 110-129 >/= 130 ---- 20-24 Y 0 - 119 --- 120-159 >/= 160 ---- >24 Y 0 - 99 100-129 130-159 160-189 >/=190. Cholesterol.total/C holesterol in HDL [Mass ratio] 3.2 {ratio} [facility] Work Phone: Comment on above: REF VALUESDESIRABLE < 3.4HIGH RISK > 5.0 Triglyceride [Mass/Vol] 106 mg/dL 0 - 149 [facility] Work Phone: Comment on above: . AGE [...] Panel 21 mg/dL 0 - 40 [facility] Work Phone: No Panel Informationon 04-04 75 {mL/min/1.73m2} >90 MP-Eliza ect [facility] Work Phone: Comment on above: CALCULATIONS OF BRANDON MATED GFR ARE PERFORMED USING THE 2020 CKD-EPI STUDY REFIT EQUATION WITHOUT THE RACE VARIABLE FOR THE IDMS-TRACEABLE CREATININE METHODS.https://jasn.asnjournals.org/content//ASN. 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 I tried searching [place] [employer]'s website regarding coverage of these vaccines, [...] Medical History (more content not included)... Normal [facility] Tobacco Screening.on 023 Fall risk assessment b) One or more falls in the last year [facility] Work Phone: Tobacco use status CPHS b) No [facility] Work Phone: VITAMIN D, 25-HYDROXYon VITAMIN D, 25-HYDROXY 22 ng/mL Abnormal [facility] Comment on above: Result Comment: . DEFICIENCY: < 20 NG/ML INSUFFICIENCY: 20-29 NG/ML SUFFICIENCY: 30-100 NG/ML THIS ASSAY ACCURATELY QUANTIFIES THE SUM OF VITAMIN D3, 25-HYDROXY AND VIT D2,25-HYDROXY. Performed By: #### V TDOH #### [facility] [address] [place] [address] Vitamin D 25-Hydroxyon 04-04 25-hydroxyvitamin D3 [Mass/Vol] 22 ng/mL Abnormal [facility] [facility] Work Phone: Comment on above: .DEFICIENCY: < 20 NG /MLINSUFFICIENCY: 20-29 NG/MLSUFFICIENCY: 30-100 NG/MLTHIS ASSAY ACCURATELY QUANTIFIES THE SUM OFVITAMIN D3, 25-HYDROXY AND VIT D2,25-HYDROXY. Rogelio 01-02-2022 ANASTASIIA Telephone (WALKWA) ----- CHINA ORTIZ ([id number]) 1970 F Date Time Provider Department 01/02/22 [...] what she can do? Thank you, Aurelia Aclsaulo Ren Ma 01/02/2022 5:51 PM Signed Patient is asking for something else for her cough and nausea. Please send to [facility] in [place]. Shama Irizarry APRN.MIGUELNIA 01/02/2022 5:57 PM Signed Zofran interacts with [...] Date Reviewed: 12/31/2021 Reviewed by: Koby Braun APRN.FURNITURE PACKER - Fully Assessed Reason for Visit: Patient Question [5513] Order(s):benzonatate (TESSALON PERLES) 100 mg capsuleTake 2 [...] Encounter Status:Closed by AURELIA VILCHIS on 01/02/22 [facility] CNOVon 12-31-2021 CNOV Office Visit (WALKWA ) ----- CHINA ORTIZ ([id number]) 1970 F Date Time Provider Department 12/31/21 12:45 PM KOBY BRAUN During your visit today, we recorded the following information about you: Temperature Pulse Respiration Blood pressure 98.7 degrees 99/minute 18/minute 130/85 Weight 91.2 kg Koby Braun APRN.CNP 12/31/2021 2:26 PM Signed This note was created using PhatNoiseriter. Subjective China Ortiz is a 51 year old female with pmh of PAST MEDICAL HISTORY Diagnosis Date Acute pancreatitis 09/2002 3 previous bouts Cyst and pseudocyst of pancreas 2002 Family history of diabetes mellitus Lupus (HCC) Migraine without aura Presents to [facility] of cough and congestion Patient complains of [...] TABLET, EXTENDED RELEASE 12 HR Koby Braun APRN.FURNITURE PACKER Referring Provider: SELF [[id number]] Allergies As of Date: 12/31/2021 Noted Allergy Reaction OPIOIDS - MORPHINE ANALOGUES 03/30/2004 2 - Rash 11 - Vomiting Comments: dilaudid SULFAMETHOXAZOLE-TRIMETHO PRIM 05/20/2016 14 - Other: See Comments Comments: blisters HYDROMORPHONE HCL 10/21/2015 11 - Vomiting 2 - Rash Date Reviewed: 12/31/2021 Reviewed by: Koby Braun APRN.FURNITURE PACKER - Fully Assessed Primary Visit Diagnosis:Acute cough [R05.1] Other Visit Diagnoses:Sore throat [J02.9] Viral URI with cough [J06.9] Order(s):RAPID STREP TEST B/O [9660680] Order #: [id number] COVID WITH FLUA+B, ROUTINE [SQCOVFLU] Order #: [id number]. #:[id number] STREP A MOLECULAR (POC) [[id number]] Order #: [id number]. #:[id number] 64-LAB guaiFENesin (MUCINEX) 600 mg 12 hr [...] by mouth. (more content not included)... Normal [facility] STREP A MOLECULAR (POC)on Procedural Control Valid [facility] Strep A (POCT) Negative Negative [facility] ALT - Alanine Aminotransfera se, Serumon 10-27-2021 ALT With P-5'-P [Catalytic activity/Vol] 10 U/L 7 - 45 [facility] Work Phone: Comment on above: Patients treated wit h Sulfasalazine may generate falsely decreased results for ALT. Anti-dsDNA (Double Stranded) Antibodieson 10-27-2021 DNA double strand Ab Qn (S) [IU]/mL [employer] Work Phone: [phone] Comment on above: REF VALUESNEGATIVE: <= 4 IU/MLEQUIVOCAL: 5- 9 IU/MLPOSITIVE: >=10 IU/ML Blood Urea Nitrogen, Serumon 10-27-2021 Urea nitrogen [Mass/Vol] 14 mg/dL 6 - 23 -[facility] Work Phone: [phone] C Reactive Protein, Serumon 10-27-2021 CRP [Mass/Vol] 0.60 mg/dL [employer] Work Phone: [phone] Comment on above: REF VALUE< 1.00 C3 Complement, Serumon 10-27 Complement C3 [Mass/Vol] 160 mg/dL 87 - 200 [employer] Work Phone: [phone] C4 Complement, Serumon 10-27 Complement C4 [Mass/Vol] 71 mg/dL above high threshold 10 - 50 -[facility] Work Phone: [phone] Complete Blood Count + Diffe rentialon 10-27-2021 Basophils/100 WBC (Bld) 1.8 % 0.0 - 2.0 [employer] Work Phone: [phone] Erythrocyte distribution width (RBC) [Ratio] 14.6 % above high threshold See Below [facility] Work Phone: [phone] Comment on above: Reference Range: 11. 5 - 14.5 Hematocrit (Bld) [Volume fraction] 45.5 % See Below [employer] [facility] Work Phone: [phone] Comment on above: Reference Range: 36. 0 - 46.0 Hemoglobin (Bld) [Mass/Vol] 14.1 g/dL See Below [employer] [facility] Work Phone: [phone] Comment on above: Reference Range: 12. 0 - 16.0 Lymphocytes/100 WBC (Bld) 26.8 % See Below [employer] [facility] Work Phone: [phone] Comment on above: Reference Range: 13. 0 - 44.0 MCHC (RBC) [Mass/Vol] 31.0 g/dL below low threshold See Below [facility] Work Phone: [phone] Comment on above: Reference Range: 32. 0 - 36.0 MCV (RBC) [Entitic vol] 97 fL 80 - 100 -[facility] Work Phone: [phone] Monocytes/100 WBC (Bld) 11.1 % 2.0 - 10.0 -[facility] Work Phone: [phone] Neutrophils/100 WBC (Bld) 55.8 % See Below -[facility] Work Phone: [phone] Comment on above: Reference Range: 40. 0 - 80.0 Platelets (Bld) [#/Vol] 486 10*3/uL above high threshold 150 - 450 -[facility] Work Phone: [phone] RBC (Bld) [#/Vol] 4.70 {x10E12/L} See Below [facility] Work Phone: [phone] Comment on above: Reference Range: 4.0 0 - 5.20 WBC (Bld) [#/Vol] 10.1 10*3/uL 4.4 - 11.3 -[facility] Work Phone: [phone] Complete Blood Count + Differential 0.18 {x10E9/L} above high threshold See Below [facility] Work Phone: [phone] Comment on above: Reference Range: 0.0 0 - 0.10 Complete Blood Count + Differential 0.38 {x10E9/L} See Below [facility] Work Phone: [phone] Comment on above: Reference Range: 0.0 0 - 0.70 Complete Blood Count + Differential 1.12 {x10E9/L} above high threshold See Below [facility] Work Phone: [phone] Comment on above: Reference Range: 0.1 0 - 1.00 Complete Blood Count + Differential 2.70 {x10E9/L} See Below [employer] [facility] Work Phone: [phone] Comment on above: Reference Range: 1.2 0 - 4.80 Complete Blood Count + Differential 5.63 {x10E9/L} See Below [facility] Work Phone: [phone] Comment on above: Reference Range: 1.2 0 - 7.70 Complete Blood Count + Differential 3.8 % 0.0 - 6.0 [facility] Work Phone: [phone] Complete Blood Count + Differential 0.7 % 0.0 - 0.9 [facility] Work Phone: [phone] Comment on above: Immature Granulocyte Count (IG) includes promyelocytes, myelocytes and metamyelocytes but does not include bands. Percent differential counts (%) should be interpreted in the context of the absolute cell counts (cells/L). Complete Blood Count + Differential 0.0 {/100_WBC} 0.0-0.0 [facility] Work Phone: [phone] Creatinine, Serumon 10-28-19 22 Creatinine [Mass/Vol] 1.00 mg/dL See Below [facility] Work Phone: [phone] Comment on above: Reference Range: 0.5 0 - 1.05 Creatinine, Serum 69 {mL/min/1.73m2} >90 [facility] Work Phone: [phone] Comment on above: CALCULATIONS OF BRANDON MATED GFR ARE PERFORMED USING THE 2020 CKD-EPI STUDY REFIT EQUATION WITHOUT THE RACE VARIABLE FOR THE IDMS-TRACEABLE CREATININE METHODS.https://jasn.asnjournals.org/content//ASN. 3544094106 Laboratory - Chemistry and C hemistry - challengeon 10-27-2021 AST With P-5'-P [Catalytic activity/Vol] 16 U/L 9 - 39 -[facility] Work Phone: [phone] Sedimentation Rate, Erythroc yteon 10-27-2021 ESR (Bld) [Velocity] 20 mm/h 0 - 20 -[facility] Work Phone: [phone] Tobacco Screening.on 022 Adult depression screening assessment No -[facility] Work Phone: [phone] Fall risk assessment a) No falls within the last year -[facility] Work Phone: [phone] Tobacco use status CPHS b) No -[facility] Work Phone: [phone] Hemoglobin A1Con 09-14-2021 Glucose [Mass/Vol] 140 mg/dL -[facility] Work Phone: [phone] HbA1c (Bld) [Mass fraction] 6.5 % Abnormal -[facility] Work Phone: [phone] Comment on above: Diagnosis of Diabete s-Adults Non-Diabetic: < or = 5.6% Increased risk for developing diabetes: 5.7-6.4% Diagnostic of diabetes: > or = 6.5%. Monitoring of Diabetes Age (y) Therapeutic Goal (%) Adults: >18 <7.0 Pediatrics: 13-18 <7.5 7-12 <8.0 0- 6 7.5-8.5 [employer]. Diabetes Care 33(S1), Apr 2009. Laboratory - Chemistry and C hemistry - challengeon 09-14-2021 Albumin BCP dye [Mass/Vol] 4.5 g/dL 3.4 - 5.0 -[facility] Work Phone: [phone] Albumin Ql (U) 47.7 mg/L See Below -[facility] Work Phone: [phone] Comment on above: Reference Range: Not Established Albumin/Creatinine DL <= 20 mg/L (U) [Mass ratio] 9.3 {ug/mg_crt} 0.0 - 30.0 -[facility] Work Phone: [phone] ALP [Catalytic activity/Vol] 115 U/L above high threshold 33 - 110 -[facility] Work Phone: [phone] ALT With P-5'-P [Catalytic activity/Vol] 14 U/L 7 - 45 -[facility] Work Phone: [phone] Comment on above: Patients treated wit h Sulfasalazine may generate falsely decreased results for ALT. Anion gap [Moles/Vol] 15 mmol/L 10 - 20 -[facility] Work Phone: [phone] AST With P-5'-P [Catalytic activity/Vol] 16 U/L 9 - 39 -[facility] Work Phone: [phone] Bilirubin [Mass/Vol] 0.5 mg/dL 0.0 - 1.2 -[facility] Work Phone: [phone] Calcium [Mass/Vol] 10.2 mg/dL 8.6 - 10.6 -[facility] Work Phone: [phone] Chloride [Moles/Vol] 106 mmol/L 98 - 107 -[facility] Work Phone: [phone] CO2 [Moles/Vol] 24 mmol/L 21 - 32 -[facility] Work Phone: [phone] Creatinine (U) [Mass/Vol] 512.0 mg/dL above high threshold See Below -[facility] Work Phone: [phone] Comment on above: Reference Range: 20. 0 - 320.0 Creatinine [Mass/Vol] 1.19 mg/dL above high threshold See Below -[facility] Work Phone: [phone] Comment on above: Reference Range: 0.5 0 - 1.05 Glucose [Mass/Vol] 102 mg/dL above high threshold 74 - 99 -[facility] Work Phone: [phone] Potassium [Moles/Vol] 4.8 mmol/L 3.5 - 5.3 -[facility] Work Phone: [phone] Protein [Mass/Vol] 7.2 g/dL 6.4 - 8.2 -[facility] Work Phone: [phone] Sodium [Moles/Vol] 140 mmol/L 136 - 145 -[facility] Work Phone: [phone] Urea nitrogen [Mass/Vol] 19 mg/dL 6 - 23 [facility] Work Phone: [phone] Lipid Panelon 09-14-2021 Cholesterol [Mass/Vol] 173 mg/dL 0 - 199 [facility] Work Phone: [phone] Comment on above: . AGE DESIRABLE [...] dosing. Cholesterol in HDL [Mass/Vol] 53.2 mg/dL [facility] Work Phone: [phone] Comment on above: . AGE VERY LOW LOW N ORMAL HIGH 0-19 Y < 35 < 40 40-45 ---- 20- 24 Y ---- < 40 >45 ---- >24 Y ---- < 40 40-60 >60. Cholesterol in LDL [Mass/Vol] 86 mg/dL 0 - 99 [facility] Work Phone: [phone] Comment on above: . NEAR BORD AGE JOHNATHON RABLE OPTIMAL HIGH HIGH VERY HIGH 0-19 Y 0 - 109 --- 110-129 >/= 130 ---- 20-24 Y 0 - 119 --- 120-159 >/= 160 ---- >24 Y 0 - 99 100-129 130-159 160-189 >/=190. Cholesterol.total/C holesterol in HDL [Mass ratio] 3.3 {ratio} -[facility] Work Phone: [phone] Comment on above: REF VALUESDESIRABLE < 3.4HIGH RISK > 5.0 Triglyceride [Mass/Vol] 170 mg/dL above high threshold 0 - 149 -[facility] Work Phone: [phone] Comment on above: . AGE DESIRABLE BORD LBIAN HIGH HIGH VERY HIGH 0 D-90 D [...] Lipid Panel 34 mg/dL 0 - 40 -[facility] Work Phone: [phone] No Panel Informationon 09-14 56 {mL/min/1.73m2} Abnormal >90 -[facility] Work Phone: [phone] Comment on above: CALCULATIONS OF BRANDON MATED GFR ARE PERFORMED USING THE 2020 CKD-EPI STUDY REFIT EQUATION WITHOUT THE RACE VARIABLE FOR THE IDMS-TRACEABLE CREATININE METHODS.https://jasn.asnjournals.org/content//ASN. 6471279988 Tobacco Screening.on 022 Adult depression screening assessment No [facility] Work Phone: Fall risk assessment a) No falls within the last year [facility] Work Phone: Tobacco use status CPHS b) No -[facility] Work Phone: Respirationon 08-31-2021 Heart Rate Regular [facility] -Franco 170 DO Work Phone: Respiration Normal [facility] -[facility] 170 DO Work Phone: No Panel Informationon 05-02 63 mg/dL above high threshold 10-40 -[facility] Work Phone: [phone] Comment on above: REFERENCE INTERVAL: Complement Component 4 Access complete set of age- and/or gender-specific reference intervals for this test in the [facility] Test Directory (SeeOn).Performed By: [employer] [place] [id number] Director: Le Underwood MD 150 mg/dL Normal 88-201 [facility] Work Phone: [phone] Comment on above: REFERENCE INTERVAL: Complement Component 3 Access complete set of age- and/or gender-specific reference intervals for this test in the [employer] [facility] Test Directory (SeeOn).Performed By: [employer] [place] [id number] Director: Le Underwood MD Negative Normal [facility] Work Phone: [phone] Comment on above: This test is a scree n, if positive refer to the quantitative test. Laboratory - Hematology and Cell countson 04-29-2021 Eosinophils/100 WBC (Bld) 4.6 % Normal [facility] Work Phone: [phone] Lymphocytes/100 WBC (Bld) 17.5 % Normal -[facility] Work Phone: [phone] Neutrophils/100 WBC (Bld) 68.2 % Normal [facility] Work Phone: [phone] WBC (Bld) [#/Vol] 10.6 10*3/uL Normal -[facility] ick Work Phone: [phone] Panel Informationon 04-29 11 {mm/hr} Normal 0-20 -[facility] Work Phone: [phone] 90.1 fL Normal 80.0-100.0 [facility] Work Phone: [phone] {/100WBC} Normal [facility] Work Phone: [phone] 33.5 g/dL Normal 32.0-37.0 [facility] [employer] Work Phone: [phone] {x1000} above high threshold 150-450 [facility] [employer] Work Phone: [phone] 4.71 {x10} Normal 4.20-5.40 [facility] [employer] Work Phone: [phone] Comment on above: Note: RBC morphology is normal unless otherwise stated. Evaluation performed only if differential is requested. No Normal [facility] Work Phone: [phone] 14.2 g/dL Normal 12.0-16.0 [facility] [employer] Work Phone: [phone] 8.8 fL Normal 7.4-10.4 [facility] [employer] Work Phone: [phone] 42.4 % Normal 36.0-46.0 [facility] [employer] Work Phone: [phone] 30.2 pg Normal 27.0-34.0 [facility] [employer] Work Phone: [phone] 14.1 1 Normal 11.5-14.5 [facility] [employer] Work Phone: [phone] 10.6 {x10} Normal 4.5-11.0 [facility] [employer] Work Phone: [phone] 0.89 {x1000} Normal 0.10-1.00 [facility] [employer] Work Phone: [phone] 7.24 {x1000} Normal 1.40-8.80 [facility] [employer] Work Phone: [phone] 0.48 {x1000} Normal 0.00-0.50 [facility] Work Phone: [phone] 8.4 % Normal -[facility] Work Phone: [phone] 1.86 {x1000} Normal 1.20-4.80 -[facility] Work Phone: [phone] 1.3 % Normal [facility] Work Phone: [phone] 0.14 {x1000} Normal 0.00-0.20 -[facility] Work Phone: [phone] 1.0 mg/dL Normal 0.6-1.0 [facility] Work Phone: [phone] 56 {mL/min/1.73m?} Normal [facility] Work Phone: [phone] Comment on above: Non GFR CalcMedical [...] be used for drug dosing. >60 Normal [facility] Work Phone: [phone] Comment on above: GFR CalcMedical judgement [...] for drug dosing. 12 mg/dL Normal 10-20 [facility] Work Phone: [phone] 15 {unit/L} Normal 15-37 [facility] Work Phone: [phone] Comment on above: Venipuncture should occur prior to sulfasalazine and/or sulfapyridine administration due to the potential for falsely depressed results.Baseline assay values before administration of sulfasalazine and sulfapyridine therapy would not be affected. 20 {unit/L} Normal 13-56 [employer] Work Phone: Comment on above: Venipuncture should occur prior to sulfasalazine and/or sulfapyridine administration due to the potential for falsely depressed results.Baseline assay values before administration of sulfasalazine and sulfapyridine therapy would not be affected. <0.3 Normal 0.0-0.3 [employer] Work Phone: Tobacco Screening.on 022 Fall risk assessment a) No falls within the last year [facility] Work Phone: Tobacco use status CPHS b) No [facility] Work Phone: IO Hgb A1Con 03-15-2021 HbA1c (Bld) [Mass fraction] 6.3 % 4.4-6.4% [facility] [facility] Work Phone: Tobacco Screening.on 021 Fall risk assessment a) No falls within the last year [facility] Work Phone: Tobacco use status CPHS b) No [facility] Work Phone: Respirationon 11-15-2020 Heart Rate Regular [facility] 170 DO Work Phone: Respiration Normal [facility] 170 DO Work Phone: ALT - Alanine Aminotransfera se, Serumon 10-29-2020 ALT With P-5'-P [Catalytic activity/Vol] 12 U/L 7 - 45 [facility] Work Phone: Comment on above: Patients treated wit h Sulfasalazine may generate falsely decreased results for ALT. Anti-dsDNA (Double Stranded) Antibodieson 10-29-2020 DNA double strand Ab Qn (S) [IU]/mL [facility] Work Phone: Comment on above: REF VALUESNEGATIVE: <= 4 IU/MLEQUIVOCAL: 5- 9 IU/MLPOSITIVE: >=10 IU/ML Blood Urea Nitrogen, Serumon 10-29-2020 Urea nitrogen [Mass/Vol] 14 mg/dL 6 - 23 -[facility] Work Phone: [phone] C Reactive Protein, Serumon 10-29-2020 CRP [Mass/Vol] 0.63 mg/dL -[facility] Work Phone: [phone] Comment on above: REF VALUE< 1.00 C3 Complement, Serumon 10-29 Complement C3 [Mass/Vol] 134 mg/dL 87 - 200 -[facility] Work Phone: [phone] C4 Complement, Serumon 10-29 Complement C4 [Mass/Vol] 66 mg/dL above high threshold 10 - 50 -[facility] Work Phone: [phone] Complete Blood Count + Diffe rentialon 10-29-2020 Basophils/100 WBC (Bld) 1.5 % 0.0 - 2.0 -[facility] Work Phone: [phone] Erythrocyte distribution width (RBC) [Ratio] 14.2 % See Below [facility] Work Phone: [phone] Comment on above: Reference Range: 11. 5 - 14.5 Hematocrit (Bld) [Volume fraction] 46.7 % above high threshold See Below [facility] Work Phone: [phone] Comment on above: Reference Range: 36. 0 - 46.0 Hemoglobin (Bld) [Mass/Vol] 14.2 g/dL See Below [facility] Work Phone: [phone] Comment on above: Reference Range: 12. 0 - 16.0 Lymphocytes/100 WBC (Bld) 19.3 % See Below [facility] Work Phone: [phone] Comment on above: Reference Range: 13. 0 - 44.0 MCHC (RBC) [Mass/Vol] 30.4 g/dL below low threshold See Below [facility] Work Phone: [phone] Comment on above: Reference Range: 32. 0 - 36.0 MCV (RBC) [Entitic vol] 97 fL 80 - 100 -[facility] Work Phone: [phone] Monocytes/100 WBC (Bld) 9.3 % 2.0 - 10.0 -[facility] Work Phone: [phone] Neutrophils/100 WBC (Bld) 65.5 % See Below [facility] Work Phone: [phone] Comment on above: Reference Range: 40. 0 - 80.0 Platelets (Bld) [#/Vol] 352 10*3/uL 150 - 450 [facility] Work Phone: [phone] RBC (Bld) [#/Vol] 4.80 {x10E12/L} See Below [facility] Work Phone: [phone] Comment on above: Reference Range: 4.0 0 - 5.20 WBC (Bld) [#/Vol] 10.5 10*3/uL 4.4 - 11.3 [facility] Work Phone: [phone] Complete Blood Count + Differential 0.16 {x10E9/L} above high threshold See Below [facility] Work Phone: [phone] Comment on above: Reference Range: 0.0 0 - 0.10 Complete Blood Count + Differential 0.35 {x10E9/L} See Below [facility] Work Phone: [phone] Comment on above: Reference Range: 0.0 0 - 0.70 Complete Blood Count + Differential 0.97 {x10E9/L} See Below [facility] Work Phone: [phone] Comment on above: Reference Range: 0.1 0 - 1.00 Complete Blood Count + Differential 2.02 {x10E9/L} See Below [facility] Work Phone: [phone] Comment on above: Reference Range: 1.2 0 - 4.80 Complete Blood Count + Differential 6.84 {x10E9/L} See Below [facility] Work Phone: [phone] Comment on above: Reference Range: 1.2 0 - 7.70 Complete Blood Count + Differential 3.3 % 0.0 - 6.0 [facility] Work Phone: [phone] Complete Blood Count + Differential 1.1 % above high threshold 0.0 - 0.9 [facility] Work Phone: [phone] Comment on above: Immature Granulocyte Count (IG) includes promyelocytes, myelocytes and metamyelocytes but does not include bands. Percent differential counts (%) should be interpreted in the context of the absolute cell counts (cells/L). Complete Blood Count + Differential 0.0 {/100_WBC} 0.0-0.0 [facility] Work Phone: [phone] Creatinine, Serumon 10-30-19 21 Creatinine [Mass/Vol] 0.93 mg/dL See Below [facility] Work Phone: [phone] Comment on above: Reference Range: 0.5 0 - 1.05 Creatinine, Serum >60 >60 [facility] Work Phone: [phone] Comment on above: CALCULATIONS OF BRANDON MATED GFR ARE PERFORMED USING THE MDRD STUDY EQUATION FOR THE IDMS-TRACEABLE CREATININE METHODS. CLIN CHEM 2007;53:766-72 Laboratory - Chemistry and C hemistry - challengeon 10-29-2020 AST With P-5'-P [Catalytic activity/Vol] 15 U/L 9 - 39 [facility] Work Phone: [phone] Sedimentation Rate, Erythroc yteon 10-29-2020 ESR (Bld) [Velocity] Canceled [facility] Work Phone: [phone] Tobacco Screening.on 021 Fall risk assessment a) No falls within the last year -[facility] Work Phone: [phone] Tobacco use status CP b) No -[facility] Work Phone: [phone] Laboratory - Chemistry and C hemistry - challengeon 08-31-2020 Anion gap [Moles/Vol] 13 mmol/L 10 - 20 -[facility] Work Phone: [phone] Calcium [Mass/Vol] 9.8 mg/dL 8.6 - 10.6 -[facility] Work Phone: [phone] Chloride [Moles/Vol] 106 mmol/L 98 - 107 -[facility] Work Phone: [phone] CO2 [Moles/Vol] 28 mmol/L 21 - 32 -[facility] Work Phone: [phone] Creatinine [Mass/Vol] 1.06 mg/dL above high threshold See Below -[facility] Work Phone: [phone] Comment on above: Reference Range: 0.5 0 - 1.05 Glucose [Mass/Vol] 171 mg/dL above high threshold 74 - 99 -[facility] Work Phone: [phone] Potassium [Moles/Vol] 5.1 mmol/L 3.5 - 5.3 -[facility] Work Phone: [phone] Sodium [Moles/Vol] 142 mmol/L 136 - 145 -[facility] Work Phone: [phone] Urea nitrogen [Mass/Vol] 17 mg/dL 6 - 23 -[facility] Work Phone: [phone] Panel Informationon 08-31 67 {mL/min/1.73m2} >60 -[facility] Work Phone: [phone] Comment on above: CALCULATIONS OF BRANDON MATED GFR ARE PERFORMED USING THE MDRD STUDY EQUATION FOR THE IDMS-TRACEABLE CREATININE METHODS. CLIN CHEM 2007;53:766-72 55 {mL/min/1.73m2} Abnormal >60 [facility] Work Phone: Hemoglobin A1Con 08-24-2020 Glucose [Mass/Vol] 134 mg/dL -Mildred rology -[place] [address] Work Phone: HbA1c (Bld) [Mass fraction] 6.3 % -Neurology [place] [address] Work Phone: Comment on above: Diagnosis of Diabete s-Adults Non-Diabetic: < or = 5.6% Increased risk for developing diabetes: 5.7-6.4% Diagnostic of diabetes: > or = 6.5%. Monitoring of Diabetes Age (y) Therapeutic Goal (%) Adults: >18 <7.0 Pediatrics: 13-18 <7.5 7-12 <8.0 0- 6 7.5-8.5 [employer]. Diabetes Care 33(S1), Apr 2009. Laboratory - Chemistry and C hemistry - challengeon 08-24-2020 Albumin BCP dye [Mass/Vol] 4.1 g/dL 3.4 - 5.0 -[facility] [place] [address] Work Phone: Albumin Ql (U) <7.0 See Below -Neurolo gy -[place] [address] Work Phone: Comment on above: Reference Range: Not Established Albumin/Creatinine DL <= 20 mg/L (U) [Mass ratio] SEE COMMENT 0.0 - 30.0 -[facility] [place] [address] Work Phone: Comment on above: One or more analytes used in this calculation is outside of the analytical measurement range.Calculation cannot be performed. ALP [Catalytic activity/Vol] 101 U/L 33 - 110 [facility] [address] Work Phone: ALT With P-5'-P [Catalytic activity/Vol] 12 U/L 7 - 45 [facility] [address] Work Phone: Comment on above: Patients treated wit h Sulfasalazine may generate falsely decreased results for ALT. Anion gap [Moles/Vol] 13 mmol/L 10 - 20 [facility] [place] [address] Work Phone: [phone] AST With P-5'-P [Catalytic activity/Vol] 15 U/L 9 - 39 [facility] -[place] [address] Work Phone: [phone] Bilirubin [Mass/Vol] 0.3 mg/dL 0.0 - 1.2 [facility] -[place] [address] Work Phone: [phone] Calcium [Mass/Vol] 9.9 mg/dL 8.6 - 10.6 [facility] -[place] [address] Work Phone: [phone] Chloride [Moles/Vol] 105 mmol/L 98 - 107 [facility] [place] [address] Work Phone: [phone] CO2 [Moles/Vol] 28 mmol/L 21 - 32 [facility]-Neurol ogy [place] [address] Work Phone: [phone] Creatinine (U) [Mass/Vol] 104.0 mg/dL See Below [place] [address] Work Phone: [phone] Comment on above: Reference Range: 20. 0 - 320.0 Creatinine [Mass/Vol] 1.18 mg/dL above high threshold See Below -[facility] [place] [address] Work Phone: [phone] Comment on above: Reference Range: 0.5 0 - 1.05 Glucose [Mass/Vol] 163 mg/dL above high threshold 74 - 99 [facility] [place] [address] Work Phone: [phone] Potassium [Moles/Vol] 5.5 mmol/L above high threshold 3.5 - 5.3 [facility] [place] [address] Work Phone: [phone] Protein [Mass/Vol] 6.6 g/dL 6.4 - 8.2 [facility] [place] [address] Work Phone: [phone] Sodium [Moles/Vol] 140 mmol/L 136 - 145 MG-Mildred rology -[facility] Work Phone: Urea nitrogen [Mass/Vol] 19 mg/dL 6 - 23 [facility] [address] Work Phone: Lipid Panelon 08-24-2020 Cholesterol [Mass/Vol] 171 mg/dL 0 - 199 MG-[facility] Work Phone: Comment on above: . [...] guidelines reference: NCEP ATPIII Guidelines, RICK 2001, 258:8026-97. Venipuncture immediately after or during the administration of Metamizole may lead to falsely low results. Testing should be performed immediately prior to Metamizole dosing. Cholesterol in HDL [Mass/Vol] 49.8 mg/dL MG-[facility] [employer] Work Phone: Comment on above: . AGE VERY LOW LOW N ORMAL HIGH 0-19 Y < 35 < 40 40-45 ---- 20- 24 Y ---- < 40 >45 ---- >24 Y ---- < 40 40-60 >60. Cholesterol in LDL [Mass/Vol] 95 mg/dL 0 - 99 [facility] [address] Work Phone: Comment on above: . NEAR BORD AGE JOHNATHON RABLE OPTIMAL HIGH HIGH VERY HIGH 0-19 Y 0 - 109 --- 110-129 >/= 130 ---- 20-24 Y 0 - 119 --- 120-159 >/= 160 ---- >24 Y 0 - 99 100-129 130-159 160-189 >/=190. Cholesterol.total/C holesterol in HDL [Mass ratio] 3.4 {ratio} [facility] [address] Work Phone: Comment on above: REF VALUESDESIRABLE < 3.4HIGH RISK > 5.0 Triglyceride [Mass/Vol] 132 mg/dL 0 - 149 [place] [address] Work Phone: Comment on above: . AGE [...] Lipid Panel 26 mg/dL 0 - 40 [place] [address] Work Phone: No Panel Informationon 08-24 59 {mL/min/1.73m2} Abnormal >60 [facility] [place] [address] Work Phone: Comment on above: CALCULATIONS OF BRANDON MATED GFR ARE PERFORMED USING THE MDRD STUDY EQUATION FOR THE IDMS-TRACEABLE CREATININE METHODS. CLIN CHEM 2007;53:766-72 49 {mL/min/1.73m2} Abnormal >60 [facility] [address] Work Phone: Vitamin D 25-Hydroxyon 08-24 25-hydroxyvitamin D3 [Mass/Vol] 11 ng/mL Abnormal [place] [address] Work Phone: Comment on above: .DEFICIENCY: < 20 NG /MLINSUFFICIENCY: 20-29 NG/MLSUFFICIENCY: 30-100 NG/MLTHIS ASSAY ACCURATELY QUANTIFIES THE SUM OFVITAMIN D3, 25-HYDROXY AND VIT D2,25-HYDROXY. Falls Risk Screeningon 08-05 Fall risk assessment a) No falls within the last year [place] [address] Work Phone: DIGITAL DIAG MAMM RIGHT UNIL W/ TOMOon 05-11-2020 DIGITAL DIAG MAMM RIGHT UNIL W/ DALTON Patient Name: CHINA ORTIZ STUDY: DIGITAL DIAG MAMM RIGHT UNIL W/ DALTON; 05/11/2020 10:07 am ACCESSION NUMBER(S): [id number] ORDERING CLINICIAN: GISELLE BOYKIN INDICATION: right breast [...] any future breast imaging appointments, please call [phone] Patient letter sent SNORM Electronically signed by: ABDULLAHI HILL MD [facility] 05-11-2020 MG Breast screening Interpreted by: MOE HILL05/11/20 10:42MRN: [id number] Name: CHINA ORTIZ STUDY:DIGITAL DIAG MAMM RIGHT [...] any future breast imaging appointments, please call [phone]). Patient letter sent SNORM Electronically signed by: ABDULLAHI HILL 05/11/20 10:42 Normal [employer] [facility] Work Phone: Comment on above: ORDER REVISED TO A D IGITAL DIAG MAMM RIGHT UNIL W/ DALTON BY RADIOLOGIST; Original Order Number: [id number] Otheron 05-02-2020 EXAMINATION:X-ray bilateral feet.INDICATION: Bilateral foot [...] by: Vasile Lim MD 05/02/2020 12:51 PM PHOTOGRAPH DEVELOPER [id number]: ALDictated By: Isha LIM MDed By: Maria Victoria LIM MD Out: 05/02/20 13:51:12 Normal [facility] [facility] Work Phone: Comment on above: Ordering Provider: [...] by: Vasile Lim MD 05/02/2020 12:51 PM PHOTOGRAPH DEVELOPER [id number]: ALDictated By: Cheyanne LIM MDgned By: Maria Victoria LIM MD Out: 05/02/20 13:51:12 Normal [facility] [facility] Work Phone: Comment on above: Ordering Provider: Kayden Lange ALT - Alanine Aminotransfera se, Serumon 04-30-2020 ALT With P-5'-P [Catalytic activity/Vol] 10 U/L 7 - 45 [facility] [facility] Work Phone: [phone] Comment on above: Patients treated wit h Sulfasalazine may generate falsely decreased results for ALT. Anti-dsDNA (Double Stranded) Antibodieson 04-30-2020 DNA double strand Ab Qn (S) [IU]/mL -[facility] Work Phone: [phone] Comment on above: REF VALUESNEGATIVE: <= 4 IU/MLEQUIVOCAL: 5- 9 IU/MLPOSITIVE: >=10 IU/ML Blood Urea Nitrogen, Serumon 04-30-2020 Urea nitrogen [Mass/Vol] 13 mg/dL 6 - 23 -[facility] Work Phone: [phone] Reactive Protein, Serumon 04-30-2020 CRP [Mass/Vol] 0.49 mg/dL -[facility] Work Phone: [phone] Comment on above: REF VALUE< 1.00 C3 Complement, Serumon 04-30 Complement C3 [Mass/Vol] 144 mg/dL 87 - 200 -[facility] Work Phone: [phone] C4 Complement, Serumon 04-30 Complement C4 [Mass/Vol] 69 mg/dL above high threshold 10 - 50 -[facility] Work Phone: [phone] Complete Blood Count + Diffe rentialon 04-30-2020 Basophils/100 WBC (Bld) 1.3 % 0.0 - 2.0 -[facility] Work Phone: [phone] Eosinophils (Bld) [#/Vol] 0.31 {x10E9/L} See Below [employer] [facility] Work Phone: [phone] Comment on above: Reference Range: 0.0 0 - 0.70 Eosinophils/100 WBC (Bld) 2.9 % 0.0 - 6.0 -[facility] Work Phone: [phone] Erythrocyte distribution width (RBC) [Ratio] 14.4 % See Below -[facility] Work Phone: [phone] Comment on above: Reference Range: 11. 5 - 14.5 Hematocrit (Bld) [Volume fraction] 42.3 % See Below -[facility] Work Phone: [phone] Comment on above: Reference Range: 36. 0 - 46.0 Hemoglobin (Bld) [Mass/Vol] 13.6 g/dL See Below -[facility] Work Phone: [phone] Comment on above: Reference Range: 12. 0 - 16.0 Lymphocytes (Bld) [#/Vol] 2.41 {x10E9/L} See Below [employer] [facility] Work Phone: [phone] Comment on above: Reference Range: 1.2 0 - 4.80 Lymphocytes/100 WBC (Bld) 22.9 % See Below -[facility] Work Phone: [phone] Comment on above: Reference Range: 13. 0 - 44.0 MCHC (RBC) [Mass/Vol] 32.2 g/dL See Below -[facility] Work Phone: [phone] Comment on above: Reference Range: 32. 0 - 36.0 MCV (RBC) [Entitic vol] 95 fL 80 - 100 [facility] Work Phone: [phone] Monocytes (Bld) [#/Vol] 1.13 {x10E9/L} above high threshold See Below -[facility] Work Phone: [phone] Comment on above: Reference Range: 0.1 0 - 1.00 Monocytes/100 WBC (Bld) 10.7 % 2.0 - 10.0 [employer] Work Phone: [phone] Neutrophils (Bld) [#/Vol] 6.47 {x10E9/L} See Below -[facility] Work Phone: [phone] Comment on above: Reference Range: 1.2 0 - 7.70 Neutrophils/100 WBC (Bld) 61.5 % See Below [employer] [facility] Work Phone: [phone] Comment on above: Reference Range: 40. 0 - 80.0 Platelets (Bld) [#/Vol] 501 {x10E9/L} above high threshold 150 - 450 [employer] Work Phone: [phone] RBC (Bld) [#/Vol] 4.47 {x10E12/L} See Below [employer] [facility] Work Phone: [phone] Comment on above: Reference Range: 4.0 0 - 5.20 WBC (Bld) [#/Vol] 0.0 {/100_WBC} 0.0-0.0 [employer] [facility] Work Phone: [phone] WBC (Bld) [#/Vol] 10.5 {x10E9/L} 4.4 - 11.3 [employer] [facility] Work Phone: [phone] Complete Blood Count + Differential 0.14 {x10E9/L} above high threshold See Below [employer] [facility] Work Phone: [phone] Comment on above: Reference Range: 0.0 0 - 0.10 Complete Blood Count + Differential 0.7 % 0.0 - 0.9 [employer] [facility] Work Phone: [phone] Comment on above: Immature Granulocyte Count (IG) includes promyelocytes, myelocytes and metamyelocytes but does not include bands. Percent differential counts (%) should be interpreted in the context of the absolute cell counts (cells/L). Creatinine, Serumon 04-30-19 21 Creatinine [Mass/Vol] 0.89 mg/dL See Below [employer] [facility] Work Phone: [phone] Comment on above: Reference Range: 0.5 0 - 1.05 Creatinine [Mass/Vol] mg/dL >60 -[facility] Work Phone: Comment on above: CALCULATIONS OF BRANDON MATED GFR ARE PERFORMED USING THE MDRD STUDY EQUATION FOR THE IDMS-TRACEABLE CREATININE METHODS. CLIN CHEM 2007;53:766-72 Otheron 04-30-2020 AST With P-5'-P [Catalytic activity/Vol] 13 U/L 9 - 39 -[facility] Work Phone: Sedimentation Rate, Erythroc yteon 04-30-2020 ESR (Bld) [Velocity] 7 mm/h 0 - 20 -[facility] Work Phone: DIGITAL MAMM SCREENING W/ TO [place] 04-15-2020 DIGITAL MAMM SCREENING W/ DALTON Patient Name: CHINA ORTIZ STUDY: DIGITAL MAMM SCREENING W/ DALTON; 04/15/2020 11:32 am ACCESSION NUMBER(S): [id number] ORDERING CLINICIAN: GISELLE BOYKIN INDICATION: Screening. New [...] any future breast imaging appointments, please call [phone] Patient letter sent SADEVAL Electronically signed by: ZAMZAM HUMPHREY MD Normal [facility] Mamm - Screening Mammogram w / Tomosynthesison 04-15-2020 MG Breast screening Interpreted by: ZAMZAM HUMPHREY04/16/20 13:23MRN: [id number] Name: CHINA ORTIZ STUDY:DIGITAL MAMM SCREENING W/ [...] any future breast imaging appointments, please call [phone] Patient letter sent SADEVAL Electronically signed by: ZAMZAM HUMPHREY 04/16/20 13:23 Normal [facility] Work Phone: Comment on above: ORDER REVISED TO A D IGITAL MAMM SCREENING W/ DALTON BY RADIOLOGIST; Original Order Number: [id number] Glucose,Bedsideon 12-04-2019 Glucose [Mass/Vol] 155 mg/dL High 70-100 [facility] Comment on above: Result Comment: Test performed by glucose meter. Results may be 10%-15% lower than serum/plasma values. (CLIA ID [id number]) Performed By: #### B GLU #### [facility] [address] [place] [address] Glucose [Mass/Vol] 106 mg/dL High 70-100 [facility] Comment on above: Result Comment: Test performed by glucose meter. Results may be 10%-15% lower than serum/plasma values. (CLIA ID [id number]) Performed By: #### B GLU #### [facility] [address] [place] [address] POCT Glucoseon 12-04-2019 Glucose [Mass/Vol] 155 mg/dL High 70 - 100 mg/dL [place], [place] Comment on above: Test performed by gl ucose meter. Results may be 10%-15% lower than serum/plasma values. (CLIA ID [id number]) Interpretation and review of laboratory results Abnormal [facility] [place], [place] Test Performed by [facility], [address] [place], [place], [place] [address] [place], [place] Glucose [Mass/Vol] 106 mg/dL High 70 - 100 mg/dL [place] Comment on above: Test performed by gl ucose meter. Results may be 10%-15% lower than serum/plasma values. (CLIA ID [id number]) Interpretation and review of laboratory results Abnormal [place], [place] Test Performed by [facility], [address] [place], [place] [address] [place] Glucose,Bedsideon 12-03-2019 Glucose [Mass/Vol] 135 mg/dL High 70-100 [facility] Comment on above: Result Comment: Test performed by glucose meter. Results may be 10%-15% lower than serum/plasma values. (CLIA ID [id number]) Performed By: #### B GLU #### [facility] [address] [place] [address] Glucose [Mass/Vol] 140 mg/dL High 70-100 [facility] Comment on above: Result Comment: Test performed by glucose meter. Results may be 10%-15% lower than serum/plasma values. (CLIA ID [id number]) Performed By: #### B GLU #### [facility] [address] [place] [address] Glucose [Mass/Vol] 107 mg/dL High 70-100 [facility] Comment on above: Result Comment: Test performed by glucose meter. Results may be 10%-15% lower than serum/plasma values. (CLIA ID [id number]) Performed By: #### B GLU #### [facility] [address] [place] [address] HCG,Urine Qualon 12-03-2019 Beta HCG ( test) Ql (U) Negative Normal Negative [facility] Comment on above: Result Comment: Preg padmaja is the most common reason for HCG in urine, although choriocarcinoma, hydatidiform mole, and certain nontropho- blastic malignancies also result in detectable urinary HCG levels. Sensitivity = 20mIU/mL. Performed By: #### H CGUR #### [facility] [address] [place] [address] Op Noteon 12-03-2019 Op Note PATIENT: LUZIER, [...] did receive antibiotics preoperatively. Diskriter Job ID: [id number] Rene Gaines MD DOD:12/03/2019 05:19 P NIR/michelle DOT:12/03/2019 07:51 P Job Number: [id number] Document Number: [id number] [facility] Op Note Date: 12/03/2019 PreOp Dx: Abnormal [...] as planned. The remainder of the laparoscopic PHARMACOLOGIST procedure was completed by the gynecology team and is documented elsewhere. Please see Dr. Gaines's note. [facility] POCT Glucoseon 12-03-2019 Glucose [Mass/Vol] 135 mg/dL High 70 - 100 mg/dL [facility] [place], [place] Comment on above: Test performed by [employer] ucose meter. Results may be 10%-15% lower than serum/plasma values. (CLIA ID [id number]) Interpretation and review of laboratory results Abnormal [place], [place] Test Performed by [facility], [address] [place], [place] [address] [place] [address] [place], [place] Glucose [Mass/Vol] 140 mg/dL High 70 - 100 mg/dL [facility] [employer] [place], [place] Comment on above: Test performed by gl ucose meter. Results may be 10%-15% lower than serum/plasma values. (CLIA ID [id number]) Interpretation and review of laboratory results Abnormal [facility] [place] Test Performed by [facility], [address] [place] [address] [facility] [place], [place] Glucose [Mass/Vol] 107 mg/dL High 70 - 100 mg/dL [facility] [employer] [place], [place] Comment on above: Test performed by gl ucose meter. Results may be 10%-15% lower than serum/plasma values. (CLIA ID [id number]) Interpretation and review of laboratory results Abnormal [place], [place] Test Performed by [facility], [address] [place], [place] [address] [place] [address] , urineon 0 Beta HCG ( test) Ql (U) Negative Negative NA [facility] [place] Comment on above: is the mos t common reason for HCG in urine, although choriocarcinoma, hydatidiform mole, and certain nontropho- blastic malignancies also result in detectable urinary HCG levels. Sensitivity = 20mIU/mL. Test Performed by [facility], [address] [place], [place] [address] [place] [address] Surgical Pathologyon 020 Surgical Pathology [id number] [facility] PATHOLOGY AND LABORATORY MEDICINE [address] [place] [address] Fax - FINAL SURGICAL PATHOLOGY REPORT NAME: CHINA ORTIZ : 1970 49 Y Colby AQUINO NO.: [id number] LOCATION: [id number] PROCEDURE 12/03/2019 DATE: [...] transection a pinpoint lumen is identified. Multiple wire rope sales representative sections are submitted in ten cassettes [...] characteristics determined by the clinical laboratories of [facility]. They have not been cleared by [...] negativity on decalcified specimens. Case reviewed at [address] [address]. DEPARTMENT OF PATHOLOGY AND LABORATORY MEDICINE [place], [place] [address] Normal [facility] Basic Metabolic Panelon 08-2 6-2020 Anion gap [Moles/Vol] 8 Normal [facility] Comment on above: Performed By: #### Jassi FRANKLIN BMP3 #### [facility] [address] [place] [address] Calcium [Mass/Vol] 9.1 mg/dL Normal 8.4-10.4 [facility] Comment on above: Performed By: #### Jassi FRANKLIN BMP3 #### [facility] [address] [place] [address] CO2 [Moles/Vol] 23 mmol/L Normal 22-30 [facility] Comment on above: Performed By: #### Jassi FRANKLIN BMP3 #### [facility] [address] [place] [address] Glucose [Mass/Vol] 95 mg/dL Normal 70-100 [facility] Comment on above: Performed By: #### Jassi FRANKLIN BMP3 #### [facility] [address] [place] [address] Urea nitrogen [Mass/Vol] 12 mg/dL Normal 7-20 [facility] Comment on above: Performed By: #### Jassi FRANKLIN BMP3 #### [facility] [address] [place] [address] Creatinine [Mass/Vol] 0.88 mg/dL Normal 0.52-1.25 [facility] Comment on above: Performed By: #### Jassi FRANKLIN BMP3 #### [facility] [address] [place] [address] GFR/1.73 sq M predicted among blacks MDRD (S/P/Bld) [Vol rate/Area] mL/min/{1.73_m2} Normal >60 [facility] Comment on above: Performed By: #### H NOEMI BMP3 #### [facility] [address] [place] [address] GFR/1.73 sq M predicted among non-blacks MDRD (S/P/Bld) [Vol rate/Area] 77.8 mL/min/{1.73_m2} Normal >60 [facility] Comment on above: Result Comment: KDIG O [...] Performed By: #### H NOEMI BMP3 #### [facility] [address] [place] [address] Chloride [Moles/Vol] 107 mmol/L Normal 98-107 [facility] Comment on above: Performed By: #### H NOEMI BMP3 #### [facility] [address] [place] [address] Potassium [Moles/Vol] 5.0 mmol/L Normal 3.5-5.1 [facility] Comment on above: Performed By: #### H NOEMI BMP3 #### [facility] [address] [place] [address] Sodium [Moles/Vol] 138 mmol/L Normal 135-145 [facility] Comment on above: Performed By: #### H EMOG, BMP3 #### [facility] [address] [place] [address] Anion gap [Moles/Vol] 8 mmol/L [place] Calcium [Mass/Vol] 9.1 mg/dL 8.4 - 10. 4 mg/dL [place] Chloride [Moles/Vol] 107 mmol/L 98 - 107 mmol/L [place] CO2 [Moles/Vol] 23 mmol/L 22 - 30 mmol/L [place] Creatinine [Mass/Vol] 0.88 mg/dL 0.52 - 1.25 mg/dL [place] EGFR IF NonAfrican English 77.8 mL/min >60 [place] Comment on above: KDIGO guidelines pro [...] MDRD (S/P/Bld) [Vol rate/Area] mL/min/{1.73_m2} >60 mL/min [place] Glucose [Mass/Vol] 95 mg/dL 70 - 100 mg/dL [place] Potassium [Moles/Vol] 5.0 mmol/L 3.5 - 5.1 mmol/L [place] Sodium [Moles/Vol] 138 mmol/L 135 - 145 mmol/L [place] Urea nitrogen [Mass/Vol] 12 mg/dL 7 - 20 mg/dL [place] Test Performed by [facility], [address] [place], [place] [address] [place] CBCon 11-26-2019 Erythrocyte distribution width (RBC) [Ratio] 16.4 % High 11.5 - 14.5 % [place] Hematocrit (Bld) [Volume fraction] 41.5 % 35 - 47 % [place] Hemoglobin (Bld) [Mass/Vol] 13.2 g/dL 11.7 - 16 g/dL [place] Interpretation and review of laboratory results Abnormal [place] MCH (RBC) [Entitic mass] 28.2 pg 26 - 34 pg [place] MCHC (RBC) [Mass/Vol] 31.9 % Low 32 - 36 % [place] MCV (RBC) [Entitic vol] 88.3 fL 79 - 98 fL [place] Platelet mean volume (Bld) [Entitic vol] 8.4 fL 7.4 - 10.4 fL [place] Platelets (Bld) [#/Vol] 490 10*3/uL High 140 - 440 10*3/uL [place] RBC (Bld) [#/Vol] 4.69 10*6/uL 3.8 - 5.2 10*6/uL [place] WBC (Bld) [#/Vol] 10.5 10*3/uL 3.6 - 10.7 10*3/uL [place] Test Performed by [facility], [address] [place], [place] [address] [place], [place] Hemogramon 11-26-2019 Erythrocyte distribution width (RBC) [Ratio] 16.4 % High 11.5-14.5 [facility] Comment on above: Performed By: #### H BRANDON FRANKLIN3 #### [facility] [address] [place] [address] Hematocrit (Bld) [Volume fraction] 41.5 % Normal 35.0-47.0 [facility] Comment on above: Performed By: #### H BRANDON FRANKLIN3 #### [facility] [address] [place] [address] Hemoglobin (Bld) [Mass/Vol] 13.2 g/dL Normal 11.7-16.0 [facility] Comment on above: Performed By: #### Jassi FRANKLIN BMP3 #### [facility] [address] [place] [address] MCH (RBC) [Entitic mass] 28.2 pg Normal 26.0-34.0 [facility] Comment on above: Performed By: #### Jassi FRANKLIN BMP3 #### [facility] [address] [place] [address] MCHC (RBC) [Mass/Vol] 31.9 % Low 32.0-36.0 [facility] Comment on above: Performed By: #### Jassi FRANKLIN BMP3 #### [facility] [address] [place] [address] MCV (RBC) [Entitic vol] 88.3 fL Normal 79.0-98.0 [facility] Comment on above: Performed By: #### Jassi FRANKLIN BMP3 #### [facility] [address] [place] [address] Platelet mean volume (Bld) [Entitic vol] 8.4 fL Normal 7.4-10.4 [facility] Comment on above: Performed By: #### Jassi FRANKLIN BMP3 #### [facility] [address] [place] [address] Platelets (Bld) [#/Vol] 490 10*3/uL High 140-440 [facility] Comment on above: Performed By: #### Jassi FRANKLIN BMP3 #### [facility] [address] [place] [address] RBC (Bld) [#/Vol] 4.69 10*6/uL Normal 3.80-5.20 [facility] Comment on above: Performed By: #### Jassi FRANKLIN BMP3 #### [facility] [address] [place] [address] WBC (Bld) [#/Vol] 10.5 10*3/uL Normal 3.6-10.7 [facility] Comment on above: Performed By: #### Jassi FRANKLIN BMP3 #### [facility] [address] [place] [address] TS GELon 11-26-2019 TS GEL ABO Group: O Rh, Gel: POS Antibody Screen Gel: NEG Normal [facility] Comment on above: Performed By: #### T SGL #### [facility] [address] [place] [address] [facility] TYPE AND SCREENon 11-26-2019 Sodium [Moles/Vol] Positive [facility] [place] Sodium [Moles/Vol] O [facility] [place] Sodium [Moles/Vol] Negative [facility] [place] Test Performed by [facility], [address], [place] [address] [facility] [place], [place] Glucose,Bedsideon 12-24-2018 Glucose [Mass/Vol] 151 mg/dL High 70-100 [facility] Comment on above: Result Comment: Test performed by glucose meter. Results may be 10%-15% lower than serum/plasma values. (CLIA ID [id number]) Performed By: #### B GLU #### [facility] [address] [place] [address] Glucose [Mass/Vol] 128 mg/dL High 70-100 [facility] Comment on above: Result Comment: Test performed by glucose meter. Results may be 10%-15% lower than serum/plasma values. (CLIA ID [id number]) Performed By: #### B GLU #### [facility] [address] [place] [address] HCG,Urine Qualon 12-24-2018 Beta HCG ( test) Ql (U) Negative Normal Negative [facility] Comment on above: Result Comment: Preg padmaja is the most common reason for HCG in urine, although choriocarcinoma, hydatidiform mole, and certain nontropho- blastic malignancies also result in detectable urinary HCG levels. Sensitivity = 20mIU/mL. Performed By: #### H CGUR #### [facility] [address] [place] [place] [address] POCT Glucoseon 12-24-2018 Glucose [Mass/Vol] 151 mg/dL High 70 - 100 mg/dL [place] Comment on above: Test performed by gl ucose meter. Results may be 10%-15% lower than serum/plasma values. (CLIA ID [id number]) Interpretation and review of laboratory results Abnormal [place], [place] Test Performed by [facility], [address] , [address] Glucose [Mass/Vol] 128 mg/dL High 70 - 100 mg/dL [place] Comment on above: Test performed by gl ucose meter. Results may be 10%-15% lower than serum/plasma values. (CLIA ID [id number]) Interpretation and review of laboratory results Abnormal [place] Test Performed by [facility], [address] , [address] , urineon 9 Beta HCG ( test) Ql (U) Negative Negative NA [place] Comment on above: is the mos t common reason for HCG in urine, although choriocarcinoma, hydatidiform mole, and certain nontropho- blastic malignancies also result in detectable urinary HCG levels. Sensitivity = 20mIU/mL. Test Performed by [facility], [address] , [address] Surgical Pathologyon 019 Surgical Pathology [id number] [facility] PATHOLOGY AND LABORATORY MEDICINE [address] [place] [address] [phone] Fax - FINAL SURGICAL PATHOLOGY REPORT NAME: CHINA ORTIZ : 1970 48 Y F BILLING NO.: [id number] LOCATION: [place] [address] PROCEDURE 12/24/2018 DATE: SURGEON: LUCRECIA REICH M.D. [...] areas of hemorrhage or friability are identified. Community Relations Advisor sections are submitted in a single cassette. (bits ss, 1) JCK/MILVIA Disclaimer: The following statement applies to all immunohistochemistry, in situ hybridization, molecular studies, and immunofluorescence testing. The use of one or more reagents in the above tests is regulated as an analyte specific reagent (ASR). These tests were developed and their performance characteristics determined by the clinical laboratories of [facility]. They have not been cleared by [...] negativity on decalcified specimens. Case reviewed at [facility] [address] [place] [address]. DEPARTMENT OF PATHOLOGY AND LABORATORY MEDICINE [place], [place] [address] Normal [facility] Basic Metabolic Panelon 12-01 Anion gap [Moles/Vol] 7 mmol/L [place] Calcium [Mass/Vol] 8.8 mg/dL 8.4 - 10. 4 mg/dL [place] Chloride [Moles/Vol] 106 mmol/L 98 - 107 mmol/L [place] CO2 [Moles/Vol] 24 mmol/L 22 - 30 mmol/L [place] Creatinine [Mass/Vol] 0.76 mg/dL 0.52 - 1.25 mg/dL [place] EGFR IF NonAfrican English >60.0 >60 mL/min [place] Comment on above: Source- MDRD equatio n with creatinine calibration to IDMS(NKDEP) eGFR not recommended for drug dose adjustment GFR/1.73 sq M predicted among blacks MDRD (S/P/Bld) [Vol rate/Area] mL/min/{1.73_m2} >60 mL/min [place] Glucose [Mass/Vol] 108 mg/dL High 70 - 100 mg/dL [place] Interpretation and review of laboratory results Abnormal [place], [place] Potassium [Moles/Vol] 5.0 mmol/L 3.5 - 5.1 mmol/L [place] Sodium [Moles/Vol] 137 mmol/L 135 - 145 mmol/L [place] Urea nitrogen [Mass/Vol] 14 mg/dL 7 - 20 mg/dL [place], [place] Test Performed by [facility], [address], [place], [place] [address] specimen slighltly hemolyzed [place], [place] CBCon 12-16-2018 Erythrocyte distribution width (RBC) [Ratio] 14.2 % 11.5 - 14.5 % [place] Hematocrit (Bld) [Volume fraction] 40.0 % 35 - 47 % [place] Hemoglobin (Bld) [Mass/Vol] 13.2 g/dL 11.7 - 16 g/dL [place] Interpretation and review of laboratory results Abnormal [place] MCH (RBC) [Entitic mass] 30.2 pg 26 - 34 pg [place] MCHC (RBC) [Mass/Vol] 33.0 % 32 - 36 % [place] MCV (RBC) [Entitic vol] 91.3 fL 79 - 98 fL [place] Platelet mean volume (Bld) [Entitic vol] 8.1 fL 7.4 - 10.4 fL [place] Platelets (Bld) [#/Vol] 591 10*3/uL High 140 - 440 10*3/uL [place] RBC (Bld) [#/Vol] 4.38 10*6/uL 3.8 - 5.2 10*6/uL [place] WBC (Bld) [#/Vol] 14.1 10*3/uL High 3.6 - 10.7 10*3/uL [place] Test Performed by [facility], [address] Abdomen Pelvis W Contrast on 11-14-2018 Patient Name: CHINA ORTIZ ---CT--- Exam Date/Time 11/14/2018 11:30:[address] Abdomen/Pelvis w/ IV Contrast (IV Onl Ordering Physician PARAS WEAVER RYAN C Accession Number [id number] CPT4 Codes 52729 (CT Abdomen/Pelvis w/ IV Contrast (IV Onl), Q9967 (CT ISOVUE 370MG/ML&[id number]&ML&1 ) Reason For Exam recurrent incisional hernia [...] R Transcribed Date and Time: 11/14/2018 2:54 [facility] [place], [place], [facility] Incoming Radiology Results From [facility] - 11/14/2018 2:55 PM EDT Patient Name: CHINA ORTIZ ---CT--- Exam Date/Time 11/14/2018 11:30:[address] Abdomen/Pelvis w/ IV Contrast (IV Onl Ordering Physician PARAS WEAVER RYAN C Accession Number [id number] CPT4 Codes 90217 (CT Abdomen/Pelvis w/ IV Contrast (IV Onl), Q9967 (CT ISOVUE 370MG/ML&[id number]&ML&1 ) Reason For Exam recurrent incisional hernia [...] R Transcribed Date and Time: 11/14/2018 2:54 [place], [place] Creatinine, Serumon 11-12-19 19 Creatinine [Mass/Vol] 0.85 mg/dL 0.52 - 1.25 mg/dL [facility] [place] [place] EGFR IF NonAfrican English >60.0 >60 mL/min [place] Comment on above: Source- MDRD equatio n with creatinine calibration to IDMS(NKDEP) eGFR not recommended for drug dose adjustment GFR/1.73 sq M predicted among blacks MDRD (S/P/Bld) [Vol rate/Area] mL/min/{1.73_m2} >60 mL/min [facility] [place] [place] Test Performed by [facility], [address] [place], [place] [address] , [address] Vital Signs Date Time Vital Sign Value Performing Clinician Facility 10-09-2024 09:44-0400 Body height 157.[address] 10-09-2024 09:44-0400 Body mass index (BMI) [Ratio] 34.75 kg/m2 [address] 10-09-2024 09:44-0400 Body weight 86.[address] 08-19-2024 14:18-0400 Body height 157.5 cm Giselle Boykin MD Work Phone: [facility] 08-19-2024 14:18-0400 Body mass index (BMI) [Ratio] 34.88 kg/m2 Giselle Boykin MD Work Phone: [facility] 08-19-2024 14:18-0400 Body temperature 97 [degF] Giselle Boykin MD Work Phone: [facility] 08-19-2024 14:18-0400 Body weight 86.5 kg Giselle Boykin MD Work Phone: [facility] 08-19-2024 14:18-0400 Diastolic blood pressure 90 mm[Hg] Giselle Boykin MD Work Phone: [facility] 08-19-2024 14:18-0400 Heart rate 68 /min Giselle Boykin MD Work Phone: [facility] 08-19-2024 14:18-0400 SaO2% (BldA) [Mass fraction] 97 % Giselle Boykin MD Work Phone: [facility] 08-19-2024 14:18-0400 Systolic blood pressure 111 mm[Hg] Giselle Boykin MD Work Phone: [phone] [place] [address] 05-07-2024 10:49-0500 Body height 157.5 cm Giselle Boykin MD Work Phone: [phone] [place] [address] 05-07-2024 10:49-0500 Body mass index (BMI) [Ratio] 35.12 kg/m2 Giselle Boykin MD Work Phone: [phone] [place] [address] 05-07-2024 10:49-0500 Body temperature 97.3 [degF] Giselle Boykin MD Work Phone: [phone] [place] [address] 05-07-2024 10:49-0500 Body weight 87.1 kg Giselle Boykin MD Work Phone: [facility] 05-07-2024 10:49-0500 Diastolic blood pressure 81 mm[Hg] Giselle Boykin MD Work Phone: [facility] 05-07-2024 10:49-0500 Heart rate 78 /min Giselle Boykin MD Work Phone: [facility] 05-07-2024 10:49-0500 SaO2% (BldA) [Mass fraction] 99 % Giselle Boykin MD Work Phone: [facility] 05-07-2024 10:49-0500 Systolic blood pressure 102 mm[Hg] Giselle Boykin MD Work Phone: [phone])539-093351 [place] [address] 05-07-2024 10:44-0500 Body height 157.5 cm Maura Lange MD Work Phone: [phone])357-170551 [place] [address] 05-07-2024 10:44-0500 Body mass index (BMI) [Ratio] 35.14 kg/m2 Maura Lange MD Work Phone: [facility] 05-07-2024 10:44-0500 Body temperature 97.3 [degF] Maura Lange MD Work Phone: [facility] 05-07-2024 10:44-0500 Body weight 87.14 kg Maura Lange MD Work Phone: [facility] 05-07-2024 10:44-0500 Diastolic blood pressure 81 mm[Hg] Maura Lange MD Work Phone: [facility] 05-07-2024 10:44-0500 Heart rate 78 /min Maura Lange MD Work Phone: [facility] 05-07-2024 10:44-0500 SaO2% (BldA) [Mass fraction] 99 % Maura Lange MD Work Phone: [facility] 05-07-2024 10:44-0500 Systolic blood pressure 102 mm[Hg] Maura Lange MD Work Phone: [facility] 04-29-2024 14:27-0500 Body mass index (BMI) [Ratio] 36.58 kg/m2 Stephanie Wilder REGISTERED ASSOCIATE.FURNITURE PACKER Work Phone: [facility] 04-29-2024 14:27-0500 Body temperature 98.6 [degF] Stephanie Wilder REGISTERED ASSOCIATE.FURNITURE PACKER Work Phone: [facility] 04-29-2024 14:27-0500 Body weight 90.72 kg Stephanie Wilder REGISTERED ASSOCIATE.FURNITURE PACKER Work Phone: [facility] 04-29-2024 14:27-0500 Diastolic blood pressure 80 mm[Hg] Stephanie Wilder REGISTERED ASSOCIATE.FURNITURE PACKER Work Phone: [facility] 04-29-2024 14:27-0500 Heart rate 95 /min Stephanie Wilder REGISTERED ASSOCIATE.FURNITURE PACKER Work Phone: [facility] 04-29-2024 14:27-0500 Respiratory rate 18 /min Stephanie Wilder REGISTERED ASSOCIATE.FURNITURE PACKER Work Phone: [facility] 04-29-2024 14:27-0500 SaO2% (BldA) [Mass fraction] 97 % Stephanie Wilder REGISTERED ASSOCIATE.FURNITURE PACKER Work Phone: [facility] 04-29-2024 14:27-0500 Systolic blood pressure 112 mm[Hg] Stephanie Wilder REGISTERED ASSOCIATE.FURNITURE PACKER Work Phone: [facility] 03-20-2024 10:26-0500 Body height 157.5 cm Giselle Boykin MD Work Phone: [facility] 03-20-2024 10:26-0500 Body mass index (BMI) [Ratio] 36.85 kg/m2 Giselle Boykin MD Work Phone: [facility] 03-20-2024 10:26-0500 Body temperature 97.2 [degF] Giselle Boykin MD Work Phone: [facility] 03-20-2024 10:26-0500 Body weight 91.4 kg Giselle Boykin MD Work Phone: [facility] 03-20-2024 10:26-0500 Diastolic blood pressure 99 mm[Hg] Giselle Boykin MD Work Phone: [facility] 03-20-2024 10:26-0500 Heart rate 74 /min Giselle Boykin MD Work Phone: [facility] 03-20-2024 10:26-0500 SaO2% (BldA) [Mass fraction] 98 % Giselle Boykin MD Work Phone: [facility] 03-20-2024 10:26-0500 Systolic blood pressure 143 mm[Hg] Giselle Boykin MD Work Phone: [facility] 11-27-2023 11:28-0400 Body height 157.5 cm Yasmine Lopez REGISTERED ASSOCIATE-FURNITURE PACKER Work Phone: [facility] 11-27-2023 11:28-0400 Body mass index (BMI) [Ratio] 36.62 kg/m2 Yasmine Lopez REGISTERED ASSOCIATE-FURNITURE PACKER Work Phone: [facility] 11-27-2023 11:28-040 Body temperature 97.2 [degF] Yasmine Lopez REGISTERED ASSOCIATE-FURNITURE PACKER Work Phone: [facility] 11-27-2023 11:28-040 Body weight 90.81 kg Yasmine Lopez REGISTERED ASSOCIATE-FURNITURE PACKER Work Phone: [facility] 11-27-2023 11:28-0400 Diastolic blood pressure 111 mm[Hg] Yasmine Lopez REGISTERED ASSOCIATE-FURNITURE PACKER Work Phone: [facility] 11-27-2023 11:28-0400 Heart rate 81 /min Yasmine Lopez REGISTERED ASSOCIATE-FURNITURE PACKER Work Phone: [facility] 11-27-2023 11:28-0400 SaO2% (BldA) [Mass fraction] 95 % Yasmine Lopez REGISTERED ASSOCIATE-FURNITURE PACKER Work Phone: [facility] 11-27-2023 11:28-0400 Systolic blood pressure 152 mm[Hg] Yasmine Lopez REGISTERED ASSOCIATE-FURNITURE PACKER Work Phone: [facility] 11-15-2023 00:46-0400 Diastolic Blood Pressure Non-Invasive 90 mm[Hg] HARSH CEDILLO DO [facility] 11-15-2023 00:46-0400 Heart rate 76 /min HARSH CEDILLO DO [facility] 11-15-2023 00:46-0400 Respiratory rate 20 /min HARSH CEDILLO DO [facility] 11-15-2023 00:46-0400 Systolic Blood Pressure Non-Invasive 143 mm[Hg] HARSH CEDILLO DO [facility] 11-14-2023 21:48-0400 Diastolic Blood Pressure Non-Invasive 99 mm[Hg] HARSH CEDILLO DO [facility] 11-14-2023 21:48-0400 Heart rate 72 /min HARSH CEDILLO DO [facility] 11-14-2023 21:48-0400 Respiratory rate 18 /min HARSH CEDILOL DO [facility] 11-14-2023 21:48-0400 Systolic Blood Pressure Non-Invasive 179 mm[Hg] HARSH CEDILLO DO [facility] 11-14-2023 20:18-0400 Diastolic Blood Pressure Non-Invasive 92 mm[Hg] HARSH CEDILLO DO [facility] 11-14-2023 20:18-0400 Heart rate 70 /min HARSH CEDILLO DO [facility] 11-14-2023 20:18-0400 Respiratory rate 16 /min HARSH CEDILLO DO [facility] 11-14-2023 20:18-0400 Systolic Blood Pressure Non-Invasive 158 mm[Hg] HARSH CEDILLO DO [facility] 11-14-2023 18:42-0400 Body temperature 98.06 [degF] HARSH CEDILLO DO [facility] 11-14-2023 18:42-0400 Body weight 89.4 kg HARSH CEDILLO DO [facility] 11-14-2023 18:42-0400 Heart rate 80 /min HARSH CEDILLO DO [facility] 10-02-2023 16:00-0400 Heart rate 65 /min MAXINE BLAIR MD [facility] 10-02-2023 15:42-0400 Blood Pressure Cuff Size MAXINE BLAIR MD [facility] 10-02-2023 15:42-0400 Blood Pressure Location MAXINE BLAIR MD [address] 10-02-2023 15:42-0400 Blood Pressure Method MAXINE BLAIR MD [address] [place] [address] 10-02-2023 15:42-0400 Body temperature 97.88 [degF] MAXINE BLAIR MD [address] [place] [address] 10-02-2023 15:42-0400 Diastolic Blood Pressure Non-Invasive 80 mm[Hg] MAXINE BLAIR MD [address] [place] [address] 10-02-2023 15:42-0400 Heart rate 67 /min MAXINE BLAIR MD [address] [place] [address] 10-02-2023 15:42-0400 Reason For Taking VItal Signs MAXINE BLAIR MD [address] [place] [address] 10-02-2023 15:42-0400 Respiratory rate 16 /min MAXINE BLAIR MD [address] [place] [address] 10-02-2023 15:42-0400 Systolic Blood Pressure Non-Invasive 138 mm[Hg] MAXINE BLAIR MD [address] [place] [address] 10-02-2023 14:59-0400 Heart rate 66 /min MAXINE BLAIR MD [address] [place] [address] 10-02-2023 10:24-0400 Heart rate 67 /min MAXINE BLAIR MD [address] [place] [address] 10-02-2023 09:47-0400 Blood Pressure Cuff Size MAXINE BLAIR MD [address] [place] [address] 10-02-2023 09:47-0400 Blood Pressure Location MAXINE BLAIR MD [address] [place] [address] 10-02-2023 09:47-0400 Blood Pressure Method MAXNIE BLAIR MD [address] [place] [address] 10-02-2023 09:47-0400 Body temperature 98.06 [degF] MAXINE BLAIR MD [address] [place] [address] 10-02-2023 09:47-0400 Diastolic Blood Pressure Non-Invasive 89 mm[Hg] MAXINE BLAIR MD [address] [place] [address] 10-02-2023 09:47-0400 Mean blood pressure 100 mm[Hg] MAXINE BLAIR MD [address] [place] [address] 10-02-2023 09:47-0400 Respiratory rate 18 /min MAXINE BLAIR MD [address] [place] [address] 10-02-2023 09:47-0400 Systolic Blood Pressure Non-Invasive 138 mm[Hg] MAXINE BLAIR MD [address] [place] [address] 10-02-2023 04:50-0400 Body weight 90.2 kg MAXINE BLAIR MD [address] [place] [address] 10-02-2023 04:39-0400 Blood Pressure Cuff Size MAXINE BLAIR MD [address] [place] [address] 10-02-2023 04:39-0400 Blood Pressure Location MAXINE BLAIR MD [address] [place] [address] 10-02-2023 04:39-0400 Blood Pressure Method MAXINE BLAIR MD [address] [place] [address] 10-02-2023 04:39-0400 Body temperature 98.24 [degF] MAXINE BLAIR MD [address] [place] [address] 10-02-2023 04:39-0400 Diastolic Blood Pressure Non-Invasive 78 mm[Hg] MAXINE BLAIR MD [address] [place] [address] 10-02-2023 04:39-0400 Respiratory rate 17 /min MAXINE BLAIR MD [address] [place] [address] 10-02-2023 04:39-0400 Systolic Blood Pressure Non-Invasive 139 mm[Hg] MAXINE BLAIR MD [address] [place] [address] 10-01-2023 22:11-0400 Heart rate 68 /min MAXINE BLAIR MD [address] [place] [address] 10-01-2023 22:11-0400 Heart rate 77 /min MAXINE BLAIR MD [address] [place] [address] 10-01-2023 08:51-0400 Heart rate 71 /min MAXINE BLAIR MD [address] [place] [address] 09-30-2023 22:00-0400 Heart rate 72 /min MAXINE BLAIR MD [facility] 09-30-2023 19:38-0400 Body height 157.5 cm MAXINE BLAIR MD [facility] 09-30-2023 19:38-0400 Body weight 91.1 kg MAXINE BLAIR MD [address] [place] [address] 09-30-2023 19:38-0400 Body weight 36.72 kg/m2 MAXINE BLAIR MD [address] [place] [address] 09-30-2023 19:16-0400 Mean blood pressure 110 mm[Hg] MAXINE BLAIR MD [address] 09-30-2023 18:37-0400 Mean blood pressure 116 mm[Hg] MAXINE BLAIR MD [address] 09-30-2023 14:11-0400 Body weight 91.2 kg MAXINE BLAIR MD [facility] 09-30-2023 14:11-0400 Heart rate 71 /min MAXINE BLAIR MD [facility] 09-19-2023 10:45-0400 Diastolic blood pressure 88 mm[Hg] Giselle Boykin MD Work Phone: [facility] 09-19-2023 10:45-0400 Systolic blood pressure 138 mm[Hg] Giselle Boykin MD Work Phone: [facility] 09-19-2023 10:30-0400 Body height 157.5 cm Giselle Boykin MD Work Phone: [facility] 09-19-2023 10:30-0400 Body mass index (BMI) [Ratio] 36.71 kg/m2 Giselle Boykin MD Work Phone: [facility] 09-19-2023 10:30-0400 Body temperature 96.4 [degF] Giselle Boykin MD Work Phone: [facility] 09-19-2023 10:30-0400 Body weight 91.04 kg Giselle Boykin MD Work Phone: [facility] 09-19-2023 10:30-0400 Heart rate 70 /min Giselle Boykin MD Work Phone: [facility] 09-19-2023 10:30-0400 SaO2% (BldA) [Mass fraction] 95 % Giselle Boykin MD Work Phone: [facility] 05-03-2023 10:42-0500 Body mass index (BMI) [Ratio] 35.81 kg/m2 Maura Lange MD Work Phone: [facility] 05-03-2023 10:42-0500 Body temperature 97.3 [degF] Maura Lange MD Work Phone: [facility] 05-03-2023 10:42-0500 Body weight 88.81 kg Maura Lange MD Work Phone: [facility] 05-03-2023 10:42-0500 Diastolic blood pressure 95 mm[Hg] Maura Lange MD Work Phone: [facility] 05-03-2023 10:42-0500 Heart rate 70 /min Maura Lange MD Work Phone: [facility] 05-03-2023 10:42-0500 SaO2% (BldA) [Mass fraction] 98 % Maura Lange MD Work Phone: [facility] 05-03-2023 10:42-0500 Systolic blood pressure 125 mm[Hg] Maura Lange MD Work Phone: [facility] 03-20-2023 14:46-0500 Body height 157.5 cm Giselle Boykin MD Work Phone: [facility] 03-20-2023 14:46-0500 Body mass index (BMI) [Ratio] 36.03 kg/m2 Giselle Boykin MD Work Phone: [facility] 03-20-2023 14:46-0500 Body temperature 97.11 [degF] Giselle Boykin MD Work Phone: [facility] 03-20-2023 14:46-0500 Body weight 89.36 kg Giselle Boykin MD Work Phone: [facility] 03-20-2023 14:46-0500 Diastolic blood pressure 92 mm[Hg] Giselle Boykin MD Work Phone: [facility] 03-20-2023 14:46-0500 Heart rate 85 /min Giselle Boykin MD Work Phone: [facility] [facility] 03-20-2023 14:46-0500 SaO2% (BldA) [Mass fraction] 99 % Giselle Boykin MD Work Phone: [facility] 03-20-2023 14:46-0500 Systolic blood pressure 125 mm[Hg] Giselle Boykin MD Work Phone: [facility] 01-31-2023 10:11-0400 Diastolic blood pressure 75 mm[Hg] Christopher Pluskota DO Work Phone: [facility] 01-31-2023 10:11-0400 Heart rate 81 /min Christopher Pluskota DO Work Phone: [facility] 01-31-2023 10:11-0400 Respiratory rate 17 /min Christopher Pluskota DO Work Phone: [facility] 01-31-2023 10:11-0400 SaO2% (BldA) [Mass fraction] 100 % Christopher Pluskota DO Work Phone: [facility] 01-31-2023 10:11-0400 Systolic blood pressure 121 mm[Hg] Christopher Pluskota DO Work Phone: [facility] 01-31-2023 09:57-0400 Body temperature 97.9 [degF] Christopher Pluskota DO Work Phone: [facility] 01-31-2023 [id number] Body height 157.5 cm Christopher Pluskota DO Work Phone: [facility] 01-31-2023 [id number] Body mass index (BMI) [Ratio] 35.85 kg/m2 Christopher Pluskota DO Work Phone: [facility] 01-31-2023 09:[id number] Body weight 88.91 kg Christopher Pluskota DO Work Phone: [facility] 11-01-2022 10:51-0400 Body height 160.02 cm Giselle Boykin Work Phone: [facility] [facility] Work Phone: 11-01-2022 10:51-0400 Body mass index (BMI) [Ratio] 34.72 kg/m2 Giselle Boykin Work Phone: [facility] Work Phone: 11-01-2022 10:51-0400 Body surface area Derived from formula 1.92 m2 Giselle Boykin Work Phone: [facility] Work Phone: 11-01-2022 10:51-0400 Body temperature 96.8 [degF] Giselle Boykin Work Phone: [facility] Work Phone: 11-01-2022 10:51-0400 Body weight 88.91 kg Giselle Boykin Work Phone: [facility] Work Phone: 11-01-2022 10:51-0400 Diastolic blood pressure 91 mm[Hg] Giselle Boykin Work Phone: [facility] Work Phone: 11-01-2022 10:51-0400 Heart rate 74 /min Giselle E Boykin Work Phone: [facility] Work Phone: 11-01-2022 10:51-0400 SaO2% (BldA) [Mass fraction] 98 % Giselle Guoers Work Phone: [facility] Work Phone: 11-01-2022 10:51-0400 Systolic blood pressure 131 mm[Hg] Giselle Guoers Work Phone: [facility] Work Phone: 11-01-2022 10:51-0400 3 1 Gisellejesusita Guoers Work Phone: [facility] Work Phone: Comment on above: [facility] 10-10-2022 10:36-0400 Body mass index (BMI) [Ratio] 36 kg/m2 Giselle Guoers Work Phone: [facility] Work Phone: 10-10-2022 10:36-0400 Body surface area Derived from formula 1.95 m2 Giselle Guoers Work Phone: [facility] Work Phone: 10-10-2022 10:36-0400 Body temperature 79.2 [degF] Giselle Guoers Work Phone: [facility] Work Phone: 10-10-2022 10:36-0400 Body weight 92.19 kg Giselle Guoers Work Phone: [facility] Work Phone: 10-10-2022 10:36-0400 Diastolic blood pressure 96 mm[Hg] Giselle Boykin Work Phone: [facility] Work Phone: 10-10-2022 10:36-0400 Heart rate 70 /min Giselle Boykin Work Phone: [facility] Work Phone: 10-10-2022 10:36-0400 SaO2% (BldA) [Mass fraction] 94 % Giselle Boykin Work Phone: [facility] Work Phone: 10-10-2022 10:36-0400 Systolic blood pressure 154 mm[Hg] Giselle Boykin Work Phone: [facility] Work Phone: 08-30-2022 14:46-0400 Body height 160.02 cm Giselle Boykin Work Phone: [facility] Work Phone: 08-30-2022 14:46-0400 Body mass index (BMI) [Ratio] 35.43 kg/m2 Giselle Boykin Work Phone: [facility] Work Phone: 08-30-2022 14:46-0400 Body surface area Derived from formula 1.93 m2 Giselle Laya Boykin Work Phone: [facility] Work Phone: 08-30-2022 14:46-0400 Body temperature 97.2 [degF] Giselle Laya Boykin Work Phone: [facility] Work Phone: 08-30-2022 14:46-0400 Body weight 90.72 kg Giselle Laya Boykin Work Phone: [facility] Work Phone: 08-30-2022 14:46-0400 Diastolic blood pressure 112 mm[Hg] Giselle Boykin Work Phone: [facility] Work Phone: 08-30-2022 14:46-0400 Heart rate 72 /min Giselle Boykin Work Phone: [email or web address] [facility] Work Phone: 08-30-2022 14:46-0400 SaO2% (BldA) [Mass fraction] 96 % Giselle Boykin Work Phone: [facility] Work Phone: 08-30-2022 14:46-0400 Systolic blood pressure 162 mm[Hg] Giselle Laya Boykin Work Phone: [facility] Work Phone: 05-08-2022 09:53-0500 Body mass index (BMI) [Ratio] 34.92 kg/m2 Giselle Boykin Work Phone: [facility] Work Phone: 05-08-2022 09:53-0500 Body surface area Derived from formula 1.92 m2 Giselle Boykin Work Phone: [facility] Work Phone: 05-08-2022 09:53-0500 Body temperature 97 [degF] Giselle Laya Boykin Work Phone: [facility] Work Phone: 05-08-2022 09:53-0500 Body weight 89.42 kg Giselle Laya Boykin Work Phone: [facility] Work Phone: 05-08-2022 09:53-0500 Diastolic blood pressure 89 mm[Hg] Giselle Guoers Work Phone: [facility] Work Phone: 05-08-2022 09:53-0500 Heart rate 70 /min Giselle Guoers Work Phone: [facility] Work Phone: 05-08-2022 09:53-0500 SaO2% (BldA) [Mass fraction] 95 % Giselle Guoers Work Phone: [facility] Work Phone: 05-08-2022 09:53-0500 Systolic blood pressure 131 mm[Hg] Giselle Boykin Work Phone: [facility] Work Phone: 05-03-2022 10:50-0500 Body height 160.02 cm Giselle Boykin Work Phone: [facility] Work Phone: 05-03-2022 10:50-0500 Body mass index (BMI) [Ratio] 34.93 kg/m2 Giselle Boykin Work Phone: [facility] Work Phone: 05-03-2022 10:50-0500 Body surface area Derived from formula 1.92 m2 Giselle Boykin Work Phone: [facility] Work Phone: 05-03-2022 10:50-0500 Body temperature 97.3 [degF] Giselle Boykin Work Phone: [facility] Work Phone: 05-03-2022 10:50-0500 Body weight 89.45 kg Giselle Boykin Work Phone: [facility] Work Phone: 05-03-2022 10:50-0500 Diastolic blood pressure 90 mm[Hg] Giselle Boykin Work Phone: [facility] Work Phone: 05-03-2022 10:50-0500 Heart rate 73 /min Giselle Boykin Work Phone: [facility] Work Phone: 05-03-2022 10:50-0500 Respiratory rate 18 /min Giselle Boykin Work Phone: [facility] Work Phone: 05-03-2022 10:50-0500 SaO2% (BldA) [Mass fraction] 98 % Giselle Boykin Work Phone: [facility] Work Phone: 05-03-2022 10:50-0500 Systolic blood pressure 122 mm[Hg] Giselle Boykin Work Phone: [facility] Work Phone: 04-04-2022 10:55-0500 Body mass index (BMI) [Ratio] 35.51 kg/m2 Giselle Boykin Work Phone: [facility] Work Phone: 04-04-2022 10:55-0500 Body surface area Derived from formula 1.94 m2 Giselle Boykin Work Phone: [facility] Work Phone: 04-04-2022 10:55-0500 Body temperature 96.6 [degF] Giselle Laya Boykin Work Phone: [facility] Work Phone: 04-04-2022 10:55-0500 Body weight 90.92 kg Giselle Laya Boykin Work Phone: [facility] Work Phone: 04-04-2022 10:55-0500 Diastolic blood pressure 87 mm[Hg] Giselle Boykin Work Phone: [facility] Work Phone: 04-04-2022 10:55-0500 Heart rate 59 /min Giselle Boykin Work Phone: [facility] Work Phone: 04-04-2022 10:55-0500 SaO2% (BldA) [Mass fraction] 98 % Giselle Boykin Work Phone: [facility] Work Phone: 04-04-2022 10:55-0500 Systolic blood pressure 132 mm[Hg] Giselle Boykin Work Phone: [facility] Work Phone: 12-31-2021 12:54-0400 Body temperature 98.71 [degF] Koby Braun REGISTERED ASSOCIATE.FURNITURE PACKER Work Phone: [facility] 12-31-2021 12:54-0400 Body weight 91.17 kg Kobylaya Braun REGISTERED ASSOCIATE.FURNITURE PACKER Work Phone: [facility] 12-31-2021 12:54-0400 Diastolic blood pressure 85 mm[Hg] Koby Yahir REGISTERED ASSOCIATE.FURNITURE PACKER Work Phone: [facility] 12-31-2021 12:54-0400 Heart rate 99 /min Koby Yahir REGISTERED ASSOCIATE.FURNITURE PACKER Work Phone: [facility] 12-31-2021 12:54-0400 Respiratory rate 18 /min Koby Yahir REGISTERED ASSOCIATE.FURNITURE PACKER Work Phone: [facility] 12-31-2021 12:54-0400 SaO2% (BldA) [Mass fraction] 97 % Kobylaya Braun REGISTERED ASSOCIATE.FURNITURE PACKER Work Phone: [facility] 12-31-2021 12:54-0400 Systolic blood pressure 130 mm[Hg] Koby Braun APRN.CNP Work Phone: [facility] 10-27-2021 11:41-0400 Body height 160.02 cm Giselle Boykin Work Phone: [facility] Work Phone: 10-27-2021 11:41-0400 Body mass index (BMI) [Ratio] 35.43 kg/m2 Giselle Laya Alejandro Work Phone: [facility] Work Phone: 10-27-2021 11:41-0400 Body surface area Derived from formula 1.93 m2 Giselle E Boykin Work Phone: [facility] Work Phone: 10-27-2021 11:41-0400 Body temperature 97.2 [degF] Giselle Boykin Work Phone: [facility] Work Phone: 10-27-2021 11:41-0400 Body weight 90.72 kg Giselle Boykin Work Phone: [facility] Work Phone: 10-27-2021 11:41-0400 Diastolic blood pressure 85 mm[Hg] Giselle Guoers Work Phone: [facility] [facility] Work Phone: 10-27-2021 11:41-0400 Heart rate 75 /min Giselle Guoers Work Phone: [facility] [facility] Work Phone: 10-27-2021 11:41-0400 SaO2% (BldA) [Mass fraction] 97 % Giselle Guoers Work Phone: [facility] Work Phone: 10-27-2021 11:41-0400 Systolic blood pressure 130 mm[Hg] Giselle Guoers Work Phone: [facility] Work Phone: 09-14-2021 15:15-0400 Body mass index (BMI) [Ratio] 35.09 kg/m2 Giselle Guoers Work Phone: [email or web address] [facility] Work Phone: 09-14-2021 15:15-0400 Body surface area Derived from formula 1.93 m2 Giselle Boykin Work Phone: [facility] Work Phone: 09-14-2021 15:15-0400 Body temperature 97.5 [degF] Giselle Guoers Work Phone: [facility] Work Phone: 09-14-2021 15:15-0400 Body weight 89.84 kg Giselle Guoers Work Phone: [facility] Work Phone: 09-14-2021 15:15-0400 Diastolic blood pressure 64 mm[Hg] Giselle Guoers Work Phone: [facility] Work Phone: 09-14-2021 15:15-0400 Heart rate 85 /min Giselle Guoers Work Phone: [facility] Work Phone: 09-14-2021 15:15-0400 SaO2% (BldA) [Mass fraction] 98 % Giselle Boykin Work Phone: [facility] Work Phone: 09-14-2021 15:15-0400 Systolic blood pressure 84 mm[Hg] iGselle Boykin Work Phone: [facility] Work Phone: 08-31-2021 13:49-0400 Body temperature 97.6 [degF] Giselle Guoers Work Phone: UD-Mlyjxurck-Jurla a 170 DO Work Phone: 08-31-2021 13:49-0400 Diastolic blood pressure 86 mm[Hg] Giselle Guoers Work Phone: WW-Gcwcirvoz-Uvqns a 170 DO Work Phone: 08-31-2021 13:49-0400 Heart rate 80 /min Giselle Guoers Work Phone: CV-Kdpuzbbiu-Wluba a 170 DO Work Phone: 08-31-2021 13:49-0400 Respiratory rate 16 /min Giselle Guoers Work Phone: QJ-Rjpqhxlfs-Twpvu a 170 DO Work Phone: 08-31-2021 13:49-0400 Systolic blood pressure 150 mm[Hg] Giselle Guoers Work Phone: KF-Cutduokgs-Kyryt a 170 DO Work Phone: 04-29-2021 11:09-0500 Body height 160.02 cm Giselle Guoers Work Phone: [facility] Work Phone: 04-29-2021 11:09-0500 Body mass index (BMI) [Ratio] 35.46 kg/m2 Giselle Guoers Work Phone: [facility] Work Phone: 04-29-2021 11:09-0500 Body surface area Derived from formula 1.93 m2 Giselle Boykin Work Phone: [facility] Work Phone: 04-29-2021 11:09-0500 Body temperature 97.1 [degF] Giselle Boykin Work Phone: [facility] [facility] Work Phone: 04-29-2021 11:09-0500 Body weight 90.81 kg Giselle Boykin Work Phone: [facility] [facility] Work Phone: 04-29-2021 11:09-0500 Diastolic blood pressure 69 mm[Hg] Giselle Boykin Work Phone: [facility] [facility] Work Phone: 04-29-2021 11:09-0500 Heart rate 71 /min Giselle Boykin Work Phone: [facility] [facility] Work Phone: 04-29-2021 11:09-0500 Respiratory rate 16 /min Giselle Boykin Work Phone: [facility] [facility] Work Phone: 04-29-2021 11:09-0500 SaO2% (BldA) [Mass fraction] 97 % Giselle Boykin Work Phone: [facility] [facility] Work Phone: 04-29-2021 11:09-0500 Systolic blood pressure 100 mm[Hg] Giselle Boykin Work Phone: [facility] Work Phone: 04-29-2021 11:09-0500 4 1 Giselle Boykin Work Phone: [facility] [facility] Work Phone: Comment on above: Jennyfer 03-15-2021 13:03-0500 Body mass index (BMI) [Ratio] 36.05 kg/m2 Giselle Laya Boykin Work Phone: [facility] [facility] Work Phone: 03-15-2021 13:03-0500 Body surface area Derived from formula 1.95 m2 Giselle Laya Alejandro Work Phone: [facility] Work Phone: 03-15-2021 13:03-0500 Body temperature 96.6 [degF] Giselle E Boykin Work Phone: [facility] Work Phone: 03-15-2021 13:03-0500 Body weight 92.31 kg Giselle E Boykin Work Phone: [facility] Work Phone: 03-15-2021 13:03-0500 Diastolic blood pressure 89 mm[Hg] Gisellejesusita Guoers Work Phone: [facility] Work Phone: 03-15-2021 13:03-0500 Heart rate 75 /min Giselle Laya Alejandro Work Phone: [facility] Work Phone: 03-15-2021 13:03-0500 SaO2% (BldA) [Mass fraction] 95 % Giselle Laya Boykin Work Phone: [facility] Work Phone: 03-15-2021 13:03-0500 Systolic blood pressure 116 mm[Hg] Giselle Guoers Work Phone: [facility] Work Phone: 11-15-2020 13:49-0400 Body temperature 96 [degF] Giselle Guoers Work Phone: RF-Pdjvnvhuc-Ghhqy a 170 DO Work Phone: 11-15-2020 13:49-0400 Diastolic blood pressure 90 mm[Hg] Giselle Guoers Work Phone: [facility] a 170 DO Work Phone: 11-15-2020 13:49-0400 Heart rate 84 /min Giselle Guoers Work Phone: PD-Twmpmvzpy-Vxtna a 170 DO Work Phone: 11-15-2020 13:49-0400 Respiratory rate 16 /min Giselle Guoers Work Phone: JS-Uvxcdmlfb-Zzcha a 170 DO Work Phone: 11-15-2020 13:49-0400 Systolic blood pressure 130 mm[Hg] Giselle Guoers Work Phone: [facility] a 170 DO Work Phone: 10-29-2020 11:29-0400 Body height 160.02 cm Giselle Guoers Work Phone: [facility] Work Phone: 10-29-2020 11:29-0400 Body mass index (BMI) [Ratio] 36.19 kg/m2 Giselle Guoers Work Phone: [facility] Work Phone: 10-29-2020 11:29-0400 Body surface area Derived from formula 1.95 m2 Giselle Guoers Work Phone: [facility] Work Phone: 10-29-2020 11:29-0400 Body temperature 97.5 [degF] Giselle Guoers Work Phone: [facility] Work Phone: 10-29-2020 11:29-0400 Body weight 92.68 kg Giselle Guoers Work Phone: [facility] Work Phone: 10-29-2020 11:29-0400 Diastolic blood pressure 82 mm[Hg] Giselle Boykin Work Phone: [facility] Work Phone: 10-29-2020 11:29-0400 Heart rate 74 /min Giselle Boykin Work Phone: [facility] Work Phone: 10-29-2020 11:29-0400 Respiratory rate 18 /min Giselle Boykin Work Phone: [facility] Work Phone: 10-29-2020 11:29-0400 SaO2% (BldA) [Mass fraction] 97 % Giselle Boykin Work Phone: [facility] Work Phone: 10-29-2020 11:29-0400 Systolic blood pressure 113 mm[Hg] Giselle Boykin Work Phone: [facility] Work Phone: 10-29-2020 11:29-0400 5 1 Giselle Boykin Work Phone: [facility] Work Phone: Comment on above: [employer] 08-05-2020 13:00-0400 Body mass index (BMI) [Ratio] 36.35 kg/m2 Giselle Laya Boykin Work Phone: [facility] [employer] Work Phone: 08-05-2020 13:00-0400 Body surface area Derived from formula 1.95 m2 Giselle Laya Boykin Work Phone: [facility] [employer] Work Phone: 08-05-2020 13:00-0400 Body temperature 96.8 [degF] Giselle Guoers Work Phone: [facility] [employer] Work Phone: 08-05-2020 13:00-0400 Body weight 93.07 kg Giselle Asif Boykin Work Phone: PE-Owapwnzte-GZRUB [employer] Work Phone: 08-05-2020 13:00-0400 Diastolic blood pressure 96 mm[Hg] Giselle Asif Boykin Work Phone: NX-Kwwyratzo-JFMZE [employer] Work Phone: 08-05-2020 13:00-0400 Heart rate 67 /min Giselle Asif Boykin Work Phone: DZ-Rpddqppmr-XUXDZ [employer] Work Phone: 08-05-2020 13:00-0400 Systolic blood pressure 122 mm[Hg] Giselle Laya Boykin Work Phone: UZ-Ikeiaeezo-TBMKF [employer] Work Phone: 04-30-2020 12:53-0500 BMI (Body Mass Index) 34.37 kg/m2 Maura Lange [facility] Work Phone: 04-30-2020 12:53-0500 Body Temperature 97.4 [degF] Maura Lange [facility] Work Phone: 04-30-2020 12:53-0500 Body weight 88 kg Maura Lange [facility] Work Phone: 04-30-2020 12:53-0500 BP Diastolic 76 mm[Hg] Maura Lange [facility] Work Phone: 04-30-2020 12:53-0500 BP Systolic 110 mm[Hg] Maura Lange [facility] Work Phone: 04-30-2020 12:53-0500 BSA (Body Surface Area) 1.91 m2 Maura Lange [facility] Work Phone: 04-30-2020 12:53-0500 Pulse (Heart Rate) 67 /min Maura Lange [facility] Work Phone: 04-30-2020 12:53-0500 Pulse Oximetry 99 % Maura Lange [facility] Work Phone: 04-30-2020 12:53-0500 Respiratory Rate 16 /min Maura Lange [facility] Work Phone: 04-30-2020 12:53-0500 3 1 Maura Lange [facility] Work Phone: Comment on above: [facility] 12-04-2019 08:21-0400 Body Temperature 98.2 [degF] [facility] 12-04-2019 08:21-0400 BP Diastolic 68 mm[Hg] [place], [place] 12-04-2019 08:21-0400 BP Systolic 112 mm[Hg] [place], [place] 12-04-2019 08:21-0400 Pulse (Heart Rate) 95 /min [facility], [place] 12-04-2019 08:21-0400 Pulse Oximetry 98 % [place], [place] 12-04-2019 08:21-0400 Respiratory Rate 16 /min [facility] 12-03-2019 11:22-0400 BMI (Body Mass Index) 36.4 kg/m2 [facility] 12-03-2019 11:22-0400 Body weight 90.27 kg [place], [place] 12-03-2019 11:22-0400 Height 157.5 cm [place] 11-26-2019 10:43-0400 Body Temperature 97.2 [degF] [facility] [place] 11-26-2019 10:43-0400 BP Diastolic 87 mm[Hg] [facility] , [place] 11-26-2019 10:43-0400 BP Systolic 126 mm[Hg] [facility] , [place] 11-26-2019 10:43-0400 Pulse (Heart Rate) 72 /min [facility] 11-26-2019 10:43-0400 Pulse Oximetry 98 % [facility] [place] 11-26-2019 10:43-0400 Respiratory Rate 16 /min [facility] 11-26-2019 10:39-0400 BMI (Body Mass Index) 36.4 kg/m2 [facility] 11-26-2019 10:39-0400 Body weight 90.27 kg [facility] [place] 11-26-2019 10:39-0400 Height 157.5 cm [facility] [place] 12-24-2018 10:50-0400 Body Temperature 97.39 [degF] [facility], [place] 12-24-2018 10:50-0400 BP Diastolic 81 mm[Hg] [facility] [place] 12-24-2018 10:50-0400 BP Systolic 125 mm[Hg] [facility] [place] 12-24-2018 10:50-0400 Pulse (Heart Rate) 82 /min [facility] [place] 12-24-2018 10:50-0400 Pulse Oximetry 99 % [facility] [place] 12-24-2018 10:50-0400 Respiratory Rate 18 /min [facility] 12-24-2018 06:46-0400 BMI (Body Mass Index) 35.3 kg/m2 [facility] [place] 12-24-2018 06:46-0400 Body weight 87.54 kg Lucrecia [facility] , [place] 12-24-2018 06:46-0400 [facility] [place] 12-16-2018 09:20-0400 Body Temperature 97.59 [degF] Lucrecia [facility], [place] 12-16-2018 09:20-0400 BP Diastolic 86 mm[Hg] [facility] , [place] 12-16-2018 09:20-0400 BP Systolic 120 mm[Hg] [facility] , [place] 12-16-2018 09:20-0400 Pulse (Heart Rate) 74 /min [facility] [place] 12-16-2018 09:20-0400 Pulse Oximetry 99 % [facility] [place] 12-16-2018 09:20-0400 Respiratory Rate 16 /min [facility], [place] 12-16-2018 09:09-0400 BMI (Body Mass Index) 35.85 kg/m2 [facility], [place] 12-16-2018 09:09-0400 Body weight 88.91 kg [facility] , [place] 12-16-2018 09:09-0400 Height 157.5 cm [facility] [place] Encounters Encounter Date Encounter Type Care Provider Facility Start: 10-09-2024 End: 10-09-2024 Subsequent hospital visit by physician Antoine Acevedo [facility] Comment on above: Visit for screening mammogram Start: 10-09-2024 End: 10-09-2024 ambulatory GISELLE BOYKIN [facility] Start: 08-19-2024 End: 08-19-2024 Office outpatient visit 25 minutes Giselle Boykin MD Work Phone: [facility] Comment on above: Type 2 diabetes dorie itus with hyperglycemia, without long-term current use of insulin (Primary Dx); Stage 3b chronic kidney disease (Multi); Leukocytosis, unspecified type Start: 08-19-2024 End: 08-19-2024 ambulatory GISELLE BOYKIN [facility] Start: 05-07-2024 End: 05-07-2024 ambulatory MAURA LANGE MD Facility:[id number] Start: 05-07-2024 End: 05-07-2024 ambulatory [facility] Start: 05-07-2024 End: 05-07-2024 Office outpatient visit 25 minutes Maura Lange MD Work Phone: [facility] Comment on above: Systemic lupus eryth ematosus, [...] type Start: 04-29-2024 ambulatory STEPHANIE WILDER Facilit y:[id number] Start: 04-29-2024 End: 04-29-2024 Subsequent hospital visit by physician Xr Tony Du Work Phone: [facility] Comment on above: Bronchitis [J40] Start: 04-29-2024 End: 04-29-2024 ambulatory STEPHANIE WILDER Facility:[id number] Start: 04-29-2024 End: 04-29-2024 Patient encounter procedure Stephanie Wilder REGISTERED ASSOCIATE.FURNITURE PACKER [facility] Comment on above: Bacterial sinusitis (Primary Dx); Bronchitis Start: 03-20-2024 End: 03-20-2024 Office outpatient visit 25 minutes Giselle Boykin MD Work Phone: [facility] Comment on above: Mixed hyperlipidemia (Primary Dx); Benign essential hypertension; Type 2 diabetes mellitus with hyperglycemia, without long-term current use of insulin; Situational depression; Anxiety Start: 03-20-2024 End: 03-20-2024 ambulatory GISELLE BOYKIN [facility] Start: 01-29-2024 End: 01-29-2024 ambulatory Mo Johnson Facility:[facility] Start: 11-27-2023 End: 11-27-2023 Office outpatient visit 15 minutes [facility] REGISTERED ASSOCIATE-FURNITURE PACKER Work Phone: [facility] Comment on above: Acute otitis media, unspecified otitis media type (Primary Dx) Start: 11-27-2023 End: 11-27-2023 ambulatory [facility] Start: 11-14-2023 End: 11-15-2023 Emergency department patient visit HARSH Monique MAMADOU SEVILLA [facility] Start: 11-01-2023 End: 11-01-2023 ambulatory [facility] Ambulatory Start: 09-30-2023 End: 10-02-2023 Emergency department patient visit VICKY HERNANDEZ MD Facility: Start: 09-30-2023 End: 10-02-2023 Observation MAXINE BLAIR MD [facility] Start: 09-19-2023 End: 09-19-2023 Office outpatient visit 25 minutes Giselle Boykin MD Work Phone: [facility] Comment on above: Benign essential hyp ertension (Primary Dx); Skin lesion of chest wall; Screening for skin cancer; Type 2 diabetes mellitus with hyperglycemia, without long-term current use of insulin (Multi); Left anterior knee pain Start: 09-19-2023 End: 09-19-2023 ambulatory GISELLE BOYKIN [facility] Start: 05-03-2023 End: 05-03-2023 Office outpatient visit 25 minutes Maura Lange MD Work Phone: [facility] Comment on above: Systemic lupus eryth ematosus, [...] (BMI) of 35.0 to 35.9 in adult ([facility] Start: 03-20-2023 End: 03-20-2023 Office outpatient visit 25 minutes Giselle Boykin MD Work Phone: [facility] Comment on above: Benign essential hyp ertension (Primary Dx); Mixed hyperlipidemia; Type 2 diabetes mellitus with hyperglycemia, without long-term current use of insulin ([facility] Anemia, unspecified type; Systemic lupus erythematosus, unspecified SLE type, unspecified organ involvement status ([facility] Start: 01-31-2023 End: 01-31-2023 Subsequent hospital visit by physician Ángel Vicente DO Work Phone: [facility] Comment on above: Encounter for screen ing for malignant neoplasm of colon Start: 01-18-2023 End: 01-18-2023 Emergency department patient visit TOMAS GOLDEN MD Facility:A Start: 01-11-2023 FUV, Provider: Giselle Boykin, Status: Pen, Time: 10:30 AM Giselle Boykin Work Phone: [facility] Work Phone: Start: 12-07-2022 AUDIT Giselle pratt Work Phone: [facility] Work Phone: Start: 11-13-2022 Rx Renewal Giselle pratt Work Phone: [facility] Work Phone: Start: 11-02-2022 Chart Update Giselle pratt Work Phone: [facility] Work Phone: Start: 11-01-2022 FUV, Provider: Maura Lange, Status: Pen, Time: 10:45 AM Giselle Boykin Work Phone: [facility] Work Phone: Start: 11-01-2022 Office outpatient vi sit 25 minutes Giselle Boykin Work Phone: [employer] Work Phone: Start: 11-01-[address] Giselle Boykin Facility:[id number] Start: 10-30-2022 AUDIT Giselle Guo ers Work Phone: [facility] Work Phone: Start: 10-26-2022 Image Encounter Giselle Guo ers Work Phone: [facility] Work Phone: Start: 10-25-2022 AUDIT Giselle Guo ers Work Phone: [facility] Work Phone: Start: 10-10-[address] Giselle Boykin Facility:[id number] Start: 08-31-2022 Chart Update Giselle pratt Work Phone: [facility] Work Phone: Start: 08-30-2022 Office outpatient vi sit 15 minutes Giselle Boykin Work Phone: [facility] Work Phone: Start: 08-30-[address] Giselle Boykin Facility:[id number] Start: 05-26-[address] Giselle Boykin Facility:[id number] Start: 05-13-2022 Chart Update Giselle pratt Work Phone: [facility] Work Phone: Start: 05-11-[address] Giselle Boykin Facility:[id number] Start: 05-08-[address] Giselle Boykin Facility:[id number] Start: 05-08-2022 Office outpatient vi sit 25 minutes Giselle Boykin Work Phone: -[facility] Work Phone: Start: 05-04-2022 Chart Update Giselle Guo ers Work Phone: [facility] Work Phone: Start: 05-03-2022 Office outpatient vi sit 25 minutes Giselle Boykin Work Phone: [facility] Work Phone: Start: 05-03-[address] Maura Lange Fac ility:[id number] Start: 04-30-2022 AUDIT Giselle Guo ers Work Phone: [facility] Work Phone: Start: 04-07-2022 Chart Update Giselle Guo ers Work Phone: [facility] Work Phone: Start: 04-05-2022 AUDIT Giselle Guo ers Work Phone: [facility] Work Phone: Start: 04-04-2022 FUV, Provider: Giselle Boykin, Status: Pen, Time: 11:00 AM Giselle Boykin Work Phone: [employer] Work Phone: Start: 04-04-2022 Office outpatient vi sit 25 minutes Giselle Boykin Work Phone: [facility] Work Phone: Start: 04-04-[address] Giselle Boykin Facility:[id number] Start: 04-03-2022 AUDIT Giselle Guo ers Work Phone: [facility] Work Phone: Start: 01-09-2022 AUDIT Giselle Guo ers Work Phone: [facility] Work Phone: Start: 12-31-2021 End: 12-31-2021 ambulatory Facility:[facility] Start: 12-31-2021 End: 12-31-2021 Patient encounter procedure Koby Braun APRNLopezFURNITURE PACKER Work Phone: [facility] Comment on above: Acute cough (Primary Dx); Sore throat; Viral URI with cough Start: 11-07-2021 AUDIT Giselle Asif Ay ers Work Phone: [facility] Work Phone: Start: 10-28-2021 Chart Update Giselle Asif Ay ers Work Phone: -[facility] Work Phone: Start: 10-27-2021 FUV, Provider: Maura Lange, Status: Pen, Time: 11:45 AM Giselle Boykin Work Phone: -[facility] Work Phone: Start: 10-27-2021 Office outpatient vi sit 25 minutes Giselle Guoers Work Phone: -[employer] [facility] Work Phone: Start: 10-26-2021 AUDIT Giselle Asif Ay ers Work Phone: -[facility] Work Phone: Start: 09-18-2021 Chart Update Giselle Asif Ay ers Work Phone: -[facility] Work Phone: Start: 09-14-2021 Office outpatient vi sit 25 minutes Giselle Asif Boykin Work Phone: -[facility] Work Phone: Start: 08-31-2021 Office outpatient vi sit 15 minutes Giselle Asif Boykin Work Phone: DN-Cvmlhnlzh-Phqjfo 170 DO Work Phone: Start: 07-29-2021 AUDIT Giselle Laya Ay ers Work Phone: TT-Thpyfemtz-Udtlqv 170 DO Work Phone: Start: 05-03-2021 Chart Update Giselle Asif Ay ers Work Phone: [facility] Work Phone: Start: 05-02-2021 Chart Update Giselle Aisf Ay ers Work Phone: [facility] Work Phone: Start: 04-30-2021 Chart Update Giselle Asif Ay ers Work Phone: [employer] Work Phone: Start: 04-29-2021 Office outpatient vi sit 25 minutes Giselle Laya GuoBoykin Work Phone: [employer] Work Phone: Start: 03-15-2021 Patient encounter procedure Giselle Guoers Work Phone: [employer] Work Phone: Start: 03-03-2021 Rx Renewal Giselle Asif Ay ers Work Phone: QT-Jpozujrgd-Wivcer 170 DO Work Phone: Start: 01-05-2021 AUDIT Giselle Asif Ay ers Work Phone: -[facility] Work Phone: Start: 11-15-2020 Office outpatient vi sit 25 minutes Giselle Laya Boykin Work Phone: HY-Qohrqazip-Eddatj 170 DO Work Phone: Start: 10-31-2020 Chart Update Giselle Asif Ay ers Work Phone: [facility] Work Phone: Start: 10-29-2020 FUV, Provider: Maura Lange, Status: Pen, Time: 11:30 AM Giselle Boykin Work Phone: [employer] [facility] Work Phone: Start: 10-29-2020 Office outpatient vi sit 25 minutes Giselle Boykin Work Phone: [employer] [facility] Work Phone: Start: 10-28-2020 AUDIT Giselle Guo ers Work Phone: [facility] [facility] Work Phone: Start: 09-30-2020 AUDIT Giselle Guo ers Work Phone: [employer] [facility] Work Phone: Start: 09-03-2020 Chart Update Giselle pratt Work Phone: [employer] [facility] Work Phone: Start: 08-27-2020 Patient encounter procedure Giselle Boykin Work Phone: [facility] Work Phone: Start: 04-30-2020 Patient encounter procedure Maura Lange [employer] [facility] Work Phone: Start: 02-05-2020 Patient encounter procedure Maura Lange [employer] [facility] Work Phone: Start: 12-03-2019 End: 12-04-2019 Subsequent hospital visit by physician Luis Enrique Ventura Work Phone: [facility] Comment on above: Abnormal uterine ble eding (Primary Dx) Start: 11-26-2019 End: 11-26-2019 Subsequent hospital visit by physician Luis Enrique Ventura Work Phone: [facility]mit [facility] Comment on above: Arrived Start: 10-31-2019 Patient encounter procedure Maura Lange [employer] [facility] Work Phone: Start: 08-07-2019 Patient encounter procedure Maura Lange [facility] Work Phone: Start: 07-07-2019 Patient encounter procedure Maura Lange KQ-Sixdsvldz-Ncotgb 170 DO Work Phone: Start: 04-11-2019 Patient encounter procedure Maura Lange JV-Spzbhugqn-Dkjycy 170 DO Work Phone: Start: 02-17-2019 Patient encounter procedure Maura Lange JC-Otcadzoay-Dukytt 170 DO Work Phone: Start: 01-08-2019 Patient encounter procedure Maura Lange PV-Pmbsvdlde-Igpghr 170 DO Work Phone: Start: 12-24-2018 End: 12-24-2018 Subsequent hospital visit by physician Lucrecia Reich Work Phone: N[facility]EL[facility] Comment on above: Recurrent incisional hernia (Primary Dx) Start: 12-16-2018 End: 12-16-2018 Subsequent hospital visit by physician Lucrecia DamonSkwibl Work Phone: [facility] Comment on above: Arrived Start: 11-18-2018 Patient encounter procedure Maura Lange HV-Mdlzdkfkn-Mycqem 170 DO Work Phone: Start: 11-15-2018 Patient encounter procedure Maura Lange MW-Idtvxsqpo-Vcklik 170 DO Work Phone: Start: 11-14-2018 End: 11-14-2018 Subsequent hospital visit by physician Lenin Weaver Work Phone: [facility] Comment on above: Recurrent incisional hernia Start: 11-11-2018 End: 11-11-2018 Subsequent hospital visit by physician Lenin Weaver Work Phone: [facility] Comment on above: Recurrent incisional hernia Start: 08-19-2018 Patient encounter procedure Maura Lange JU-Eygynbvyd-Kxdjlv 170 DO Work Phone: Start: 08-15-2018 Patient encounter procedure Maura Lange XI-Sseforzfj-Lxnvgp 170 DO Work Phone: Start: 07-17-2018 Patient encounter procedure Maura Lange XE-Mpbquelgt-Gdomlj 170 DO Work Phone: Start: 07-11-2018 Patient encounter procedure Maura Lange AI-Vnnmyhils-Bclfst 170 DO Work Phone: Start: 05-22-2018 Patient encounter procedure Maura Lange JH-Askrhelny-Akyluc 170 DO Work Phone: Start: 04-25-2018 Patient encounter procedure Maura Lange RX-Shxomvtxq-Crfbtx 170 DO Work Phone: Start: 03-13-2018 Patient encounter procedure Maura Lange AQ-Vgaomoglr-Hqesfi 170 DO Work Phone: Start: 02-11-2018 Patient encounter procedure Maura Lange CV-Vsjuzmkjw-Hqbjos 170 DO Work Phone: Start: 11-14-2017 Patient encounter procedure Maura Lange XM-Cmczkgqvz-Cyxmcq 170 DO Work Phone: Start: 10-16-2017 Patient encounter procedure Maura Lange QG-Yweymoidc-Twylhc 170 DO Work Phone: Start: 10-09-2017 Patient encounter procedure Maura Lange HU-Urwtwwzyf-Rojdeu 170 DO Work Phone: Start: 09-26-2017 Patient encounter procedure Maura Lange HG-Sfglgtrnj-Cphqmp 170 DO Work Phone: Start: 08-30-2017 Patient encounter procedure Maura Lange GP-Sbirhdmja-Mcvlye 170 DO Work Phone: Start: 08-13-2017 Patient encounter procedure Maura Lange ZU-Osvpdgkln-Ezlhwu 170 DO Work Phone: Start: 08-08-2017 Patient encounter procedure Maura Lange VZ-Szabgiuoo-Uvjcdi 170 DO Work Phone: Start: 07-18-2017 Patient encounter procedure Maura Lange JI-Pftjbrtod-Tohvyi 170 DO Work Phone: Start: 07-16-2017 Patient encounter procedure Maura Lange VH-Twalndwjk-Jurtxq 170 DO Work Phone: End: 03-15-2016 Cancer cervix - screening done Giselle Boykin Work Phone: [facility] Work Phone: End: 03-15-2016 Encounter for gynecological examination (general) (routine) without abnormal findings Giselle Boykin Work Phone: [facility] Work Phone: Procedures Date Procedure [...] use Rene Liana Work Phone: Start: 12-03-2019 OPERATIVE REPORT [...] metabolic pane l calcium total Lucrecia Matheus [employer] Work Phone: Start: 11-26-2019 Blood count complete automated Lucrecia Matheus [employer] Work Phone: Start: 11-26-2019 Blood typing serologic abo Lucrecia Matheus [employer] Work Phone: Start: 11-26-2019 Ecg routine ecg w/le ast 12 lds w/i&r Lucrecia Matheus [employer] Work Phone: Start: 07-07-2019 Blood count complete [...] metabolic pane l calcium total Lucrecia Jarvis [employer] Work Phone: Start: 12-16-2018 Blood count complete automated Lucrecia [employer] Work Phone: Start: 12-16-2018 Ecg routine ecg w/le ast 12 lds w/i&r Lucrecia Jarvis [employer] Work Phone: Start: 11-14-2018 CT ABDOMEN PELVIS [...] Screening for malign ant neoplasm of colon [facility] Start: 05-03-2028 Lipid panel Lipid Screening [facility] Start: 10-31-2026 [facility] Start: 12-15-2025 DTaP/Tdap/Td vaccine (3 - Td) DTaP/Tdap/Td vaccine (3 - Td) [place], [place] Start: 12-15-2025 DTaP/Tdap/Td Vaccine s (3 - Td or Tdap) DTaP/Tdap/Td Vaccines (3 - Td or Tdap) [facility] Start: 12-15-2025 Urine microalbumin profile DTa P,Tdap,Td Vaccine (3 - Td or Tdap) [facility] Start: 05-07-2025 Urine screening for protein Diabetes: Urine Protein Screening [facility] Start: 05-05-2025 Lipid panel Lipid Panel [facility] Start: 12-01-2024 Influenza vaccination Influenz a Vaccine (#1) [facility] Start: 11-20-2024 End: 11-20-2024 Patient encounter procedure 11/20/2024 10:15 AM EDT Office Visit [facility] [address] [place] [phone] Giselle Boykin MD [address] [place] [address] [facility] Start: 11-19-2024 Hemoglobin A1c measurement Devi betes: Hemoglobin A1C [facility] Start: 11-06-2024 End: 11-06-2024 Patient encounter procedure 11/06/2024 10:30 AM EDT Office Visit [address] [phone] Maura Lange MD [address] [place] [address] [facility] Start: 08-19-2024 End: 08-19-2025 Basic metabolic 2000 panel - Serum or Plasma Basic metabolic panel Lab Routine Stage 3b chronic kidney disease (Multi) Expected: 08/19/2024 (Approximate), Expires: 08/19/2025 [facility] Work Phone: Comment on above: Expected: 08/19/2024 (Approximate), Expires: 08/19/2025 Start: 08-19-2024 End: 08-19-2025 CBC W Auto Differential panel - Blood CBC and Auto Differential Lab Routine Leukocytosis, unspecified type Expected: 08/19/2024 (Approximate), Expires: 08/19/2025 [facility] Service Area Work Phone: Comment on above: Expected: 08/19/2024 (Approximate), Expires: 08/19/2025 Start: 08-19-2024 End: 08-19-2025 Hemoglobin A1c/Hemoglobin.total in Blood Hemoglobin A1c Lab Routine Type 2 diabetes mellitus with hyperglycemia, without long-term current use of insulin Expected: 08/19/2024 (Approximate), Expires: 08/19/2025 [facility] Work Phone: Comment on above: Expected: 08/19/2024 (Approximate), Expires: 08/19/2025 Start: 08-11-2024 End: 08-11-2024 Patient encounter procedure 08/11/2024 10:15 AM EDT Office Visit [facility] [address] [place] [phone] Giselle Boykin MD [address] [place] [id number] [facility] Start: 08-04-2024 Hemoglobin A1c measurement Devi betes: Hemoglobin A1C [facility] Start: 08-02-2024 Hemoglobin A1c measurement Devi betes: Hemoglobin A1C [facility] Start: 05-07-2024 End: 05-07-2025 C reactive protein [Mass/volume] in Serum or Plasma C-Reactive Protein Lab Routine Systemic lupus erythematosus, unspecified SLE type, unspecified organ involvement status (Multi) Expected: 05/07/2024, Expires: 05/07/2025 [facility] Work Phone: Comment on above: Expected: 05/07/2024 , Expires: 05/07/2025 Start: 05-07-2024 End: 05-07-2025 Complement C3 [Mass/volume] in Serum or Plasma C3 Complement Lab Routine Systemic lupus erythematosus, unspecified SLE type, unspecified organ involvement status (Multi) Expected: 05/07/2024 (Approximate), Expires: 05/07/2025 [facility] Work Phone: Comment on above: Expected: 05/07/2024 (Approximate), Expires: 05/07/2025 Start: 05-07-2024 End: 05-07-2025 Complement C4 [Mass/volume] in Serum or Plasma C4 Complement Lab Routine Systemic lupus erythematosus, unspecified SLE type, unspecified organ involvement status (Multi) Expected: 05/07/2024 (Approximate), Expires: 05/07/2025 [facility] Work Phone: Comment on above: Expected: 05/07/2024 (Approximate), Expires: 05/07/2025 Start: 05-07-2024 End: 05-07-2025 DNA double strand Ab [Units/volume] in Serum Anti-DNA Antibody, Double-Stranded Lab Routine Systemic lupus erythematosus, unspecified SLE type, unspecified organ involvement status (Multi) Expected: 05/07/2024 (Approximate), Expires: 05/07/2025 [facility] Service Area Work Phone: Comment on above: Expected: 05/07/2024 (Approximate), Expires: 05/07/2025 Start: 05-07-2024 End: 02-05-2026 Erythrocyte sedimentation rate Sedimentation Rate Lab Routine Systemic lupus erythematosus, unspecified SLE type, unspecified organ involvement status (Multi) Expected: 05/07/2024, Expires: 05/07/2025 [facility] Work Phone: Comment on above: Expected: 05/07/2024 , Expires: 05/07/2025 Start: 05-07-2024 End: 05-07-2024 Patient encounter procedure [facility] Start: 05-04-2024 End: 05-04-2025 Microalbumin/Creatinine [Mass Ratio] in Urine Albumin-Creatinine Ratio, Urine Random Lab Routine Type 2 diabetes mellitus with hyperglycemia, without long-term current use of insulin Expected: 05/04/2024 (Approximate), Expires: 05/04/2025 [facility] Service Area Work Phone: Comment on above: Expected: 05/04/2024 (Approximate), Expires: 05/04/2025 Start: 05-03-2024 Lipid panel Lipid Panel [facility] Start: 03-20-2024 End: 03-20-2025 CBC W Auto Differential panel - Blood CBC and Auto Differential Lab Routine Benign essential hypertension Expected: 03/20/2024 (Approximate), Expires: 03/20/2025 [facility] Work Phone: Comment on above: Expected: 03/20/2024 (Approximate), Expires: 03/20/2025 Start: 03-20-2024 End: 03-20-2025 Comprehensive metabolic 2000 panel - Serum or Plasma Comprehensive Metabolic Panel Lab Routine Benign essential hypertension Expected: 03/20/2024 (Approximate), Expires: 03/20/2025 [facility] Work Phone: Comment on above: Expected: 03/20/2024 (Approximate), Expires: 03/20/2025 Start: 03-20-2024 End: 03-20-2025 Hemoglobin A1c/Hemoglobin.total in Blood Hemoglobin A1c Lab Routine Type 2 diabetes mellitus with hyperglycemia, without long-term current use of insulin Expected: 03/20/2024 (Approximate), Expires: 03/20/2025 [facility] Work Phone: Comment on above: Expected: 03/20/2024 (Approximate), Expires: 03/20/2025 Start: 03-20-2024 End: 03-20-2025 Lipid 1996 panel - Serum or Plasma Lipid Panel Lab Routine Mixed hyperlipidemia Expected: 03/20/2024 (Approximate), Expires: 03/20/2025 [facility] Service Area Work Phone: Comment on above: Expected: 03/20/2024 (Approximate), Expires: 03/20/2025 Start: 03-20-2024 End: 03-20-2024 Patient encounter procedure 03/20/2024 10:30 AM EST Office Visit [facility] [place] [place] [phone] Giselle Boykin MD [address] [place] [id number] [facility] Start: 02-29-2024 End: 02-29-2024 Patient encounter procedure 02/29/2024 3:30 PM EST Office Visit [facility] [id number] [address] [facility] [address] [place] [id number] [place] [address] [address] [place] [address] [facility] Start: 02-01-2024 Hemoglobin A1c measurement Devi betes: Hemoglobin A1C [facility] Start: 02-01-2024 Screening for malign ant neoplasm of colon [facility] Start: 12-02-2023 COVID-19 Vaccine ( season) COVID-19 Vaccine () [facility] Start: 12-02-2023 Covid-19 Vaccine ( season) Covid-19 Vaccine ( season) [facility] Start: 12-02-2023 Influenza vaccination Influenz a Vaccine (#1) [facility] Start: 11-09-2023 Cervical cancer screen Cervica l cancer screen [place], [place] Start: 11-09-2023 Screening for malign ant neoplasm of cervix Cervical cancer screen [facility] Start: 11-01-2023 End: 11-01-2023 Patient encounter procedure 11/01/2023 10:30 AM EDT Office Visit [address] [place] [phone] Maura Lange MD [address] [place] [address] [address] [place] [address] [facility] Start: 09-19-2023 End: 09-18-2024 Hemoglobin A1c/Hemoglobin.total in Blood Hemoglobin A1c Lab Routine Type 2 diabetes mellitus with hyperglycemia, without long-term current use of insulin (Multi) Expected: 09/19/2023 (Approximate), Expires: 09/18/2024 [facility] Service Area Work Phone: Comment on above: Expected: 09/19/2023 (Approximate), Expires: 09/18/2024 Start: 09-19-2023 End: 09-19-2023 Patient encounter procedure 09/19/2023 10:30 AM EDT Office Visit [facility] [address] [place] [phone] Giselle Boykin MD [address] [place] [address] [address] [place] [address] [facility] Start: 08-01-2023 Hemoglobin A1c measurement Devi betes: Hemoglobin A1C [facility] Start: 05-11-2023 Screening for malign ant neoplasm of breast Mammogram [facility] Start: 05-03-2023 End: 05-03-2024 C reactive protein [Mass/volume] in Serum or Plasma [facility] Work Phone: Comment on above: Expected: 05/03/2023 , Expires: 05/03/2024 Start: 05-03-2023 End: 05-03-2024 CBC W Auto Differential panel - Blood [facility] Work Phone: Comment on above: Expected: 05/03/2023 (Approximate), Expires: 05/03/2024 Start: 05-03-2023 End: 05-03-2024 Complement C3 [Mass/volume] in Serum or Plasma [facility] Work Phone: Comment on above: Expected: 05/03/2023 (Approximate), Expires: 05/03/2024 Start: 05-03-2023 End: 05-03-2024 Complement C4 [Mass/volume] in Serum or Plasma [facility] Work Phone: Comment on above: Expected: 05/03/2023 (Approximate), Expires: 05/03/2024 Start: 05-03-2023 End: 05-03-2024 Comprehensive metabolic 2000 panel - Serum or Plasma [facility] [facility] Work Phone: Comment on above: Expected: 05/03/2023 (Approximate), Expires: 05/03/2024 Start: 05-03-2023 End: 05-03-2024 DNA double strand Ab [Units/volume] in Serum [facility] Service Area Work Phone: Comment on above: Expected: 05/03/2023 (Approximate), Expires: 05/03/2024 Start: 05-03-2023 End: 05-03-2024 Erythrocyte sedimentation rate [facility] Work Phone: Comment on above: Expected: 05/03/2023 , Expires: 05/03/2024 Start: 05-03-2023 FUV, Provider: Maura Lange, Status: Pen, Time: 10:45 AM FUV, Provider: Maura Lange, Status: Pen, Time: 10:45 AM [facility] Work Phone: Start: 05-03-2023 End: 05-03-2023 Patient encounter procedure 05/03/2023 10:45 AM EST Office Visit [address] [facility] [address] [place] [address] Maura Lange MD [address] [place] [address] [address] [place] [address] [facility] Start: 04-04-2023 Lipid panel Lipid Panel [facility] Start: 03-20-2023 End: 03-20-2024 Hemoglobin A1c/Hemoglobin.total in Blood Hemoglobin A1c Lab Routine Type 2 diabetes mellitus with hyperglycemia, without long-term current use of insulin ([facility]) Expected: 03/20/2023 (Approximate), Expires: 03/20/2024 [facility] Work Phone: Comment on above: Expected: 03/20/2023 (Approximate), Expires: 03/20/2024 Start: 03-20-2023 End: 03-20-2024 Lipid 1996 panel - Serum or Plasma Lipid Panel Lab Routine Mixed hyperlipidemia Expected: 03/20/2023 (Approximate), Expires: 03/20/2024 [facility] Service Area Work Phone: Comment on above: Expected: 03/20/2023 (Approximate), Expires: 03/20/2024 Start: 01-11-2023 FUV, Provider: Giselle Boykin, Status: Pen, Time: 10:30 AM FUV, Provider: Giselle Boykin, Status: Pen, Time: 10:30 AM [facility] Work Phone: Start: 12-01-2022 COVID-19 Vaccine ( season) COVID-19 Vaccine ( season) [facility] Start: 12-01-2022 Influenza vaccination Influenz a Vaccine (#1) [facility] Start: 11-01-2022 FUV, Provider: Maura Lange, Status: Pen, Time: 10:45 AM FUV, Provider: Maura Lange, Status: Pen, Time: 10:45 AM [facility] Work Phone: Start: 10-10-2022 FUV, Provider: Giselle Boykin, Status: Pen, Time: 10:30 AM FUV, Provider: Giselle Boykin, Status: Pen, Time: 10:30 AM [facility] Work Phone: Start: 09-14-2022 Urine screening for protein Diabetes: Urine Protein Screening [facility] Start: 07-03-2022 Hemoglobin A1c measurement Devi betes: Hemoglobin A1C [facility] Start: 05-08-2022 FUVHOSP, Provider: Giselle Boykin, Status: Pen, Time: 9:30 AM FUVHOSP, Provider: Giselle Boykin, Status: Pen, Time: 9:30 AM [facility] Work Phone: Start: 05-03-2022 FUV, Provider: Maura Lange, Status: Pen, Time: 10:45 AM FUV, Provider: Maura Lange, Status: Pen, Time: 10:45 AM [facility] Work Phone: Start: 03-16-2022 FUV, Provider: Giselle Boykin, Status: Pen, Time: 2:30 PM FUV, Provider: Giselle Boykin, Status: Pen, Time: 2:30 PM [facility] Work Phone: Start: 2022 Pneumococcal Vaccine : 50+ (1 of 1 - PCV) Pneumococcal Vaccine: 50+ (1 of 1 - PCV) [facility] Start: 2022 Shingrix Vaccine (1 of 2) Bella grix Vaccine (1 of 2) [facility] Start: 2022 Zoster Vaccines (1 of 2) Zoste r Vaccines (1 of 2) [facility] Start: 12-25-2021 Yearly Adult Physical Yearly Adult P hysical [facility] Start: 12-01-2021 Influenza vaccination INFLUENZA (#1) [facility] Start: 10-27-2021 FUV, Provider: Maura Lange, Status: Pen, Time: 11:45 AM FUV, Provider: Maura Lange, Status: Pen, Time: 11:45 AM [facility] Work Phone: Start: 09-14-2021 FUV, Provider: Giselle Boykin, Status: Pen, Time: 3:15 PM FUV, Provider: Giselle Boykin, Status: Pen, Time: 3:15 PM [facility] Work Phone: Start: 08-31-2021 FUVGENERAL, Provider : Olivia Schmitz, Status: Pen, Time: 2:00 PM FUVGENERAL, Provider: Olivia Schmitz, Status: Pen, Time: 2:00 PM EN-Doqvabxsk-Fajswr 170 DO Work Phone: Start: 06-02-2021 COVID-19 VACCINE (4 - Booster for Pfizer series) COVID-19 VACCINE (4 - Booster for Pfizer series) [facility] Start: 06-02-2021 COVID-19 Vaccine (4 - Pfizer series) COVID-19 Vaccine (4 - Pfizer series) [facility] Start: 05-16-2021 FUVGENERAL, Provider : Olivia Schmitz, Status: Pen, Time: 2:00 PM FUVGENERAL, Provider: Olivia Schmitz, Status: Pen, Time: 2:00 PM MV-Rzyeomopn-Bcuczk 170 DO Work Phone: Start: 04-29-2021 FUV, Provider: Maura Lange, Status: Pen, Time: 11:15 AM FUV, Provider: Maura Lange, Status: Pen, Time: 11:15 AM [facility] Work Phone: Start: 04-02-2021 DEPRESSION ASSESSMENT DEPRESSION ASS ESSMENT [facility] Start: 2021 FUV, Provider: Giselle Boykin, Status: Pen, Time: 10:00 AM FUV, Provider: Giselle Boykin, Status: Pen, Time: 10:00 AM MC-Nxziftdsj-Oyynbe 170 DO Work Phone: Start: 02-03-2021 FUV, Provider: Giselle Boykin, Status: Pen, Time: 1:00 PM FUV, Provider: Giselle Boykin, Status: Pen, Time: 1:00 PM IY-Zziagcetk-XNYGO [facility] Work Phone: Start: 11-25-2020 Creatinine measurement Creatinine mo dax [facility] [place] Start: 11-25-2020 Potassium monitoring Potassium monit [facility] Start: 11-15-2020 FUVGENERAL, Provider : Olivia Schmitz, Status: Pen, Time: 1:30 PM FUVGENERAL, Provider: Olivia Schmitz, Status: Pen, Time: 1:30 PM [facility] Work Phone: Start: 10-29-2020 FUV, Provider: Maura Lange, Status: Pen, Time: 11:30 AM FUV, Provider: Maura Lange, Status: Pen, Time: 11:30 AM AB-Zmeocogls-NBWEH [facility] Work Phone: Start: 12-19-2019 End: 12-19-2019 Office Visit 12/19/2019 Office Visit Obstetrics and Gynecology Rene Gaines MD [address] [place], [place] [id number] [facility] Start: 12-17-2019 Creatinine measurement [facility] Start: 12-17-2019 Creatinine monitoring Creatinine mon itoring [facility] Start: 12-17-2019 Potassium monitoring Potassium monit [place], [place] Start: 12-03-2019 End: 12-03-2019 Appointment 12/03/2019 Appointment General Surgery Rene Gaines MD [address] [place] [id number] Luis Enrique Ventura MD [address] [place] [address] [address] [place] [address] [phone] Surgery Start: 12-02-2019 Influenza vaccination Flu vaccine (# 1) [place], [place] Start: 11-12-2019 [facility] Start: 01-31-2019 Potassium monitoring Potassium monit oring [facility] Start: 12-24-2018 End: 12-24-2018 Appointment 12/24/2018 Appointment General Surgery Lucrecia Reich MD [address] [place] [id number] [facility] Start: 12-01-2018 Influenza vaccination Flu vaccine (# 1) [facility] Start: 11-29-2018 End: 11-29-2018 Procedure visit 11/29/2018 Procedure visit Obstetrics and Gynecology Rene Gaines MD [address] [place] [place] [place], [place] [id number] [facility] Start: 11-22-2018 Screening for malign ant neoplasm of cervix [facility] Start: 11-19-2018 End: 11-19-2018 Office Visit 11/19/2018 Office Visit General Surgery Lucrecia Reich MD [address] [place], [place] [id number] Gen Surg - [facility] Start: 11-14-2018 Hospital Encounter [facility] Start: 11-10-2018 DIABETES SCREEN DIABETES SCREEN [facility] Start: 08-09-2018 Screening for malign ant neoplasm of colon FIT [facility] Start: 01-06-2018 Urine microalbumin profile DTA P,TDAP,TD (2 - Td or Tdap) [facility] Start: 2017 COLOGUARD (FIT-DNA) COLOGUARD (FIT-D NA) [facility] Start: 2017 Colonoscopy COLONOSCOPY [facility] Start: 2017 COLORECTAL CANCER SCREENING COLORECTAL CANCER SCREENING [facility] Start: [address] COLONOGRAPHY [facility] Start: 2017 FECAL OCCULT BLOOD FECAL OCCULT BLOO D [facility] Start: 2017 LIPID SCREEN LIPID SCREEN [facility] Start: 2017 Screening for malign ant neoplasm of colon [facility] Start: 2017 SIGMOIDOSCOPY SIGMOIDOSCOPY [facility] Start: 02-10-2016 Meningococcal (ACWY) vaccine (2 - Risk 2-dose series) [facility] Start: 12-08-2014 PAP TESTING PAP TESTING [facility] Start: 12-08-2012 Screening for malign ant neoplasm of cervix Cervical Cancer Screening [facility] Start: 2012 Diabetes screen Diabetes screen [place], [place] Start: 2012 Lipid screen Lipid screen [place], [place] Start: 2012 Mammography MAMMOGRAM [facility] Start: 2012 Screening for malign ant neoplasm of breast Mammogram Screening [facility] Start: 03-09-2008 SHINGRIX VACCINE (1 of 2) BELLA GRIX VACCINE (1 of 2) [facility] Start: 2002 Cervical cancer screen Cervica l cancer screen [place], [place] Start: 2002 HPV TESTING HPV TESTING [facility] Start: 1993 Cervical cancer screen Cervica l cancer screen [place], [place] Start: 1993 Screening for malign ant neoplasm of cervix HPV/Cotest [facility] Start: 1991 Hepatitis A Vaccines (1 of 2 - Risk 2-dose series) Hepatitis A Vaccines (1 of 2 - Risk 2-dose series) [facility] Start: 1991 Hepatitis B Vaccine (1 of 3 - 19+ 3-dose series) Hepatitis B Vaccine (1 of 3 - 19+ 3-dose series) [facility] Start: 1991 Hepatitis B Vaccines (1 of 3 - 19+ 3-dose series) Hepatitis B Vaccines (1 of 3 - 19+ 3-dose series) [facility] Start: 1991 Pneumococcal vaccination Pneum ococcal Vaccine (1 of 2 - PCV) [facility] Start: 1990 ANNUAL PCP TEAM 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 ELIZA DISEASE VISIT ANNUAL PCP TEAM CHRONIC DISEASE VISIT [facility] Start: 1990 Anxiety Screening Anxiety Screening [facility] Start: 1990 BP CONTROLLED (<130/80) BP CON TROLLED (<130/80) [facility] Start: 1990 Depression Screening Depression Scre ening [facility] Start: 1990 HEPATITIS C SCREENING HEPATITIS C SC REENING [facility] Start: 1990 Hepatitis C screening Hepatitis C [facility] Start: 1990 HIV SCREENING [facility] Start: 1990 HIV screening HIV Screening [facility] Start: 1987 HIV screen HIV screen [place], [place] Start: 1987 [facility] screening [facility] [place] [place] Start: 1982 Diabetic foot examination Diabetes: Foot Exam [facility] Start: 1982 Glaucoma screening Diabetes: R etinopathy Screening [facility] Start: 1982 Lipid panel Lipid screen [place], [place] Start: 1982 Meningococcal B vacc ine (1 of 4 - Increased Risk Bexsero 2-dose series) Meningococcal B vaccine (1 of 4 - Increased Risk Bexsero 2-dose series) [place], [place] Start: 1982 Meningococcal B Vacc ine (1 of 4 - Increased Risk) Meningococcal B Vaccine (1 of 4 - Increased Risk) [facility] Start: 1978 PNEUMOCOCCAL (1 - PCV) PNEUMOC OCCAL (1 - PCV) [facility] Start: 1978 Pneumococcal 0-64 ye ars Vaccine (1 of 3 - PCV13) Pneumococcal 0-64 years Vaccine (1 of 3 - PCV13) [place], [place] Start: 1978 Pneumococcal Vaccine : Pediatrics (0 to 5 Years) and At-Risk Patients (6 to 64 Years) (1 - PCV) Pneumococcal Vaccine: Pediatrics (0 to 5 Years) and At-Risk Patients (6 to 64 Years) (1 - PCV) [facility] Start: 1978 Pneumococcal Vaccine : Pediatrics (0 to 5 Years) and At-Risk Patients (6 to 64 Years) (1 of 2 - PCV) Pneumococcal Vaccine: Pediatrics (0 to 5 Years) and At-Risk Patients (6 to 64 Years) (1 of 2 - PCV) [facility] Start: 1974 Meningococcal Vaccin e (1 - Risk 2-dose series) Meningococcal Vaccine (1 - Risk 2-dose series) [facility] Start: 06-05-1973 Hib vaccine (1 of 1 - Risk 1-dose series) Hib vaccine (1 of 1 - Risk 1-dose series) [facility] Start: 06-[facility]1973 HIB Vaccines (1 of 1 - Risk 1-dose series) HIB Vaccines (1 of 1 - Risk 1-dose series) [facility] Start: 1972 HEPATITIS B (1 of 3 - 3-dose series) HEPATITIS B (1 of 3 - 3-dose series) [facility] Start: 1972 Hepatitis B Vaccines (1 of 3 - 3-dose series) Hepatitis B Vaccines (1 of 3 - 3-dose series) [facility] Start: 1972 HIV screening HIV Screening [facility] Start: 1972 Screening for malign ant neoplasm of colon [facility] Start: 1972 Yearly Adult Physical Yearly Adult P hysical [facility] End: 12-24-2018 Blood glucose - POCT Blood glucose - POCT Point of Care Testing STAT One Time for 1 Occurrences starting 12/24/2018 until 12/24/2018 [facility] [place] Comment on above: One Time for 1 Occur rences starting 12/24/2018 until 12/24/2018 End: 01-31-2023 Choriogonadotropin ( test) [Presence] in Urine POCT , urine manually resulted Point of Care Testing Routine Once (Lab) for 1 Occurrences starting 01/31/2023 until 01/31/2023 [facility] Work Phone: Comment on above: Once (Lab) for 1 Occ urrences starting 01/31/2023 until 01/31/2023 End: 11-14-2018 CT Abdomen Pelvis W Contrast CT Abdomen Pelvis W Contrast Imaging Routine Recurrent incisional hernia 1 Occurrences starting 11/14/2018 until 11/14/2018 [facility] Comment on above: 1 Occurrences starti ng 11/14/2018 until 11/14/2018 End: 10-09-2024 DBT Breast - bilateral [facility] Service Area Work Phone: Comment on above: Once for 1 Occurrenc es starting 10/09/2024 until 10/09/2024 EKG 12 [facility] End: 01-31-2023 Glucose [Mass/volume] in Serum or Plasma POCT Glucose Point of Care Testing - Docked Device Routine Once (Lab) for 1 Occurrences starting 01/31/2023 until 01/31/2023 [facility] Work Phone: Comment on above: Once (Lab) for 1 Occ urrences starting 01/31/2023 until 01/31/2023 Incentive spirometry Incentive s pirometry Respiratory Care Routine Q1H PRN until discontinued starting 12/24/2018 [facility] Comment on above: Q1H PRN until discon tinued starting 12/24/2018 Influenza virus A an d B RNA and SARS-CoV-2 (COVID-19) N gene panel - Respiratory specimen by CARLY with probe detection COVID WITH FLUA+B, ROUTINE Microbiology Routine Acute cough 12/31/2021 1:34 PM EDT [facility] Work Phone: Initiate Oxygen Ther apy Protocol Initiate Oxygen Therapy Protocol Respiratory Care Routine Daily until discontinued starting 12/24/2018 [facility] Comment on above: Daily until disconti nued starting 12/24/2018 End: 01-31-2023 Moderate Sedation Moderate Sedation Procedures Routine Once for 1 Occurrences starting 01/31/2023 until 01/31/2023 [facility] Service Area Work Phone: Comment on above: Once for 1 Occurrenc es starting 01/31/2023 until 01/31/2023 Oxygen therapy [[facility] Data Set] Initiate Oxygen Therapy Protocol Respiratory Care Routine Daily until discontinued starting 12/03/2019 [facility] Comment on above: Daily until disconti nued starting 12/03/2019 POCT GLUCOSE POCT GLUCOSE Poi nt of Care Testing Routine 4X Daily (AC & HS) until discontinued starting 12/03/2019 [facility] Comment on above: 4X Daily (AC & HS) u ntil discontinued starting 12/03/2019 End: 12-24-2018 Pulse Oximetry Spot Check Pulse Oximetry Spot Check Respiratory Care Routine One Time for 1 Occurrences starting 12/24/2018 until 12/24/2018 [facility] Comment on above: One Time for 1 Occur rences starting 12/24/2018 until 12/24/2018 RAPID STREP TEST B/O RAPID STREP TEST B/O Lab Routine Sore throat Ordered: 12/31/2021 [facility] Work Phone: Comment on above: Ordered: 12/31/2021 Spirometry panel Incentive [employer] Respiratory Care Routine Every 2hr while awake until discontinued starting 12/03/2019 [facility] Comment on above: Every 2hr while awak e until discontinued starting 12/03/2019 End: 12-03-2019 Surgical Pathology Surgical Pathology Lab Routine Once for 1 Occurrences starting 12/03/2019 until 12/03/2019 [facility] Comment on above: Once for 1 Occurrenc es starting 12/03/2019 until 12/03/2019 Surgical Pathology Surgical Path ology Lab Routine 12/03/2019 2:34 PM EDT [facility] [place] XR Chest PA and Lateral XR CHEST 2V FRONTAL/LAT Radiology Routine Bronchitis 04/29/2024 3:37 PM EST [facility] Work Phone: End: 05-30-2025 XR Chest PA and Lateral XR CHEST 2V FRONTAL/LAT Radiology Routine Bronchitis 1 Occurrences starting 04/29/2024 until 05/30/2025 [facility] Work Phone: Comment on above: 1 Occurrences starti ng 04/29/2024 until 05/30/2025 NEGATED: Highlighted row has been ruled out! Planned Goals not documented QT-Gtpelxydu-Sgihoj 170 DO Work Phone: Immunizations Immunization Date Immunization Notes Care Provider [facility] 03-20-2024 influenza, seasonal, injectable, preservative free Giselle Boykin MD Work Phone: [facility] Work Phone: 03-20-2024 influenza virus vaccine, unspecified formulation [facility] 1 [facility] Work Phone: 03-20-2023 influenza virus vaccine, unspecified formulation MAXINE BLAIR MD [facility] 03-20-2023 influenza, injectabl e, quadrivalent, preservative free Giselle Boykin MD Work Phone: [facility] Work Phone: 04-07-2021 Pfizer-BioNTech COVID-19 Vacc 30 MCG/0.3ML Intramuscular Suspension Giselle E Boykin Work Phone: [facility] 12-25-2020 influenza, seasonal, injectable Carteropher Pluskota DO Work Phone: [facility] Work Phone: 12-25-2020 Seasonal, quadrivale nt, recombinant, injectable influenza vaccine, preservative free Giselle E Boykin Work Phone: PC-Dwuulhowx-Lrvsm a 170 DO Work Phone: 12-25-2020 influenza virus vaccine, unspecified formulation Ángel Pluskota DO Work Phone: [facility] 09-08-2020 Pfizer-BioNTech COVID-19 Vacc 30 MCG/0.3ML Intramuscular Suspension Giselle Boykin Work Phone: [facility] 08-18-2020 Pfizer-BioNTech COVID-19 Vacc 30 MCG/0.3ML Intramuscular Suspension Gisellesaleem Boykin Work Phone: [facility] 04-11-2019 influenza virus vaccine, unspecified formulation MAXINE BLAIR MD [facility] 04-11-2019 influenza, high dose seasonal, preservative-free; Translations: [Fluzone High-Dose 0.5 ML Intramuscular Suspension Prefilled Syringe] Maura Lange FW-Fayzbctju-Mfhks a 170 DO Work Phone: Comment on above: Series: 02-11-2018 influenza virus vaccine, unspecified formulation MAXINE BLAIR MD [facility] 02-11-2018 influenza, injectabl e, quadrivalent, preservative free; Translations: [Fluzone Quadrivalent 0.5 ML Intramuscular Suspension] Maura Lange KM-Wpfkvzpsz-Ujxvy a 170 DO Work Phone: Comment on above: Series: 12-14-2016 influenza virus vaccine, unspecified formulation MAXINE BLAIR MD [facility] 12-14-2016 influenza, seasonal, injectable Ángel Vicente DO Work Phone: [facility] Work Phone: 12-14-2016 influenza, injectabl e, quadrivalent, preservative free; Translations: [Fluzone Quadrivalent 0.5 ML Intramuscular Suspension Prefilled Syringe] Maura Lange DP-Wnzaiqvte-Bieyq a 170 DO Work Phone: Comment on above: Series: 12-30-2015 Flu vaccine, quadrivalent, high-dose, preservative free, age 65y+ (FLUZONE) Maura Lange MD Work Phone: [facility] Work Phone: 12-30-2015 Influenza Vaccine, unspecified formulation [facility] [place] 12-16-2015 meningococcal polysaccharide (groups A, C, Y and W-135) diphtheria toxoid conjugate vaccine (MCV4P) Giselle Boykin Work Phone: [facility] Work Phone: 12-16-2015 tetanus toxoid, redu geovanna diphtheria toxoid, and acellular pertussis vaccine, adsorbed Giselle Boykin Work Phone: [facility] Work Phone: 12-16-2015 meningococcal vaccin e of unknown formulation and unknown serogroups [facility] [place] 11-26-2015 influenza, seasonal, injectable, preservative free Maura Lange TN-Sruswzgst-Cvfxx a 170 DO Work Phone: Comment on above: Series: 02-18-2015 influenza virus vaccine, unspecified formulation MAXINE BLAIR MD [facility] 02-18-2015 influenza, seasonal, injectable, preservative free; Translations: [Fluarix] Maura Lange XO-Fcmizrgmz-Kma in a 170 DO Work Phone: Comment on above: Series: 01-13-2008 measles, mumps and rubella virus vaccine Koby Braun REGISTERED ASSOCIATE.FURNITURE PACKER Work Phone: [facility] 01-13-2008 varicella virus vaccine Rick nilo Braun REGISTERED ASSOCIATE.FURNITURE PACKER Work Phone: [facility] 01-07-2008 tetanus toxoid, redu geovanna diphtheria toxoid, and acellular pertussis vaccine, adsorbed Koby Braun REGISTERED ASSOCIATE.FURNITURE PACKER Work Phone: [facility] 12-15-2007 tuberculin skin test ; purified protein derivative solution, intradermal Stephanie Tina REGISTERED ASSOCIATE.FURNITURE PACKER Work Phone: [facility] 11-30-2007 tuberculin skin test ; purified protein derivative solution, intradermal Stephanie Tina REGISTERED ASSOCIATE.FURNITURE PACKER Work Phone: [facility] 09-15-1998 measles, mumps and rubella virus vaccine Giselle Boykin Work Phone: [facility] Work Phone: 09-15-1998 measles/mumps/rubell a virus vaccine MAXINE BLAIR MD [facility] Payers Date Payer Category Payer Self-pay 2022 Medicaid (Managed Care) [id number] 2022 Unknown [address] [facility] xxxxxxxxxxxx 2015-Present [phone] [address] [place] [address] xxxxxxxxxxxx [id number] 2002 Medicaid [id number] 2002 Unknown [id number] [id number]. [id number] 1972 Unknown [id number] 2.16.840.1.167813.3.579.2. 356 1972 Unknown [id number] 2.16.840.1.933500.3.579.2. 356 1972 Unknown [id number] 2.16.840.1.760338.3.579.2. 356 1972 Unknown [id number] 2.16.840.1.242146.3.579.2. 356 1972 Unknown [id number] 2.16.840.1.527600.3.579.2. 356 1972 Unknown [id number] 2.16.840.1.693092.3.579.2. 356 1972 Unknown [id number] 2.16.840.1.637722.3.579.2. 356 1972 Unknown [id number] 2.16.840.1.104287.3.579.2. 356 1972 Unknown [id number] 2.16.840.1.672090.3.579.2. 627 1972 Unknown [id number] 2.16.840.1.487535.3.579.2. 627 1972 Unknown [id number] 2.16.840.1.426114.3.579.2. 627 1972 Unknown [id number] 2.16.840.1.366871.3.579.2. 159 1972 Unknown [id number] 2.16.840.1.164403.3.579.2. 1244 1972 Unknown [id number] 2.16.840.1.010899.3.579.2. 1244 1972 Unknown [id number] 2.16.840.1.333156.3.579.2. 1244 1972 Unknown [id number] 2.16.840.1.776023.3.579.2. 1244 1972 Unknown [id number] 2.16.840.1.796279.3.579.2. 1244 1972 Unknown [id number] 2.16.840.1.468501.3.579.2. 1244 1972 Unknown [id number] 2.16.840.1.817566.3.579.2. 1244 1972 Unknown [id number] 2.16.840.1.964820.3.579.2. 1245 1972 Unknown [id number] 2.16.840.1.805813.3.579.2. 124 Unknown [id number] 2.16.840.1.422498.3.579.2. 462 Social History Date Type Detail Facility Start: 11-08-2018 End: 01-31-2023 Tobacco smoking status VAIS Never smoker [facility] Start: 11-08-2018 End: 08-19-2024 Alcohol intake No [place], [place] Start: 1970 Sex Assigned At Not on file [place], [place] Start: 12-03-2019 End: 01-31-2023 Tobacco use and exposure Never used [place] Start: 12-03-2019 End: 11-17-2021 Alcohol intake Current non-drinker of alcohol (finding) [place] Start: 12-21-2021 End: 08-19-2024 Exposure to SARS-CoV-2 (event) Not sure [place] Start: 01-31-2023 End: 08-19-2024 No alcohol use No alcohol use KT-Krkvhpkup-MK[facility]BV [facility] Work 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; Start: 01-31-2023 End: 10-09-2024 Alcohol intake Ex-drinker (finding) [facility] Work Phone: Start: 1970 Sex Assigned At Female U [facility] Start: 06-08-2022 Gender identity Identifies as female gender (finding) [facility] Work Phone: Start: 06-08-2022 Sexual orientation Heterosexual (vonnie michelle) [facility] Work Phone: Adult Depression Screening Assessment 0 [facility] NEGATED: Highlighted row - - DJ-Aussuopkv-Rhngfb 170 DO Work Phone: NEGATED: Highlighted rowStart: LINUSF History of tobacco use Passive smoker [facility] Medical Equipment Procedure Code Equipment Code Equipment Origin al Text Equipment Identifier Dates Start: 12-14-[address] In Vitro Strip TEST TWICE DAILY. Quantity: 100 Refills: 3 [place] REGISTERED ASSOCIATE-FURNITURE PACKER Emili Start : 14-Dec-2015 Active Start: 12-14-2015 [...] sugar once daily. Record in log book. [id number] Start: 02-05-2020 Use to check fas ting glucose once daily. [id number] Start: 11-05-2023 Use to check fas ting glucose once daily. [id number] Start: 11-05-2023 Use to check fas ting glucose once daily. [id number] Start: 12-04-2023 Functional Status Date Assessment Result Facility 08-19-2024 Patient Health Questionnaire 2 item (PHQ-2) [Reported] [facility] Work Phone: 11-15-2023 Functional Status Independent [facility] 10-02-2023 Functional Status Door open [facility] 10-02-2023 Functional Status [facility] 10-02-2023 Functional Status Done [facility] 10-02-2023 Functional Status [facility] 10-01-2023 Functional Status [facility] 10-01-2023 Functional Status Multilevel home [facility] 10-01-2023 Functional Status [facility] 10-01-2023 Functional Status Maintained [facility] 10-01-2023 Functional Status [facility] 09-30-2023 Functional Status Sensory Deficits None [facility] NEGATED: Highlighted row Functional performance Functional status health issues are not documented Disease DL-Xuuaovpqp-Dnvhun 170 DO Work Phone: Mental Status Date Assessment Result Facility 11-15-2023 Mental Status Orientation Orie nted x 4 [facility] 11-14-2023 Mental Status [facility] 10-02-2023 Mental Status [facility] NE[facility]ATED: Highlighted row Cognitive function [Interpretation] Cognitive status health issues are not documented Disease CB-Qwbztllvl-Eszwto 170 DO Work Phone: Clinical Notes 09-16-2020 [...] 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 REVIEW OF SYSTEMS Review of Systems Constitutional: [...] Smokeless Tobacco Never documented in this encounter [facility] Work Phone: 05-07-2024 History of Present illness [...] Follow-up 3 months. documented in this encounter [facility] Work Phone: 05-07-2024 Evaluation + Plan note [...] Future C-Reactive Protein; Future Sedimentation Rate; Future [facility] Work Phone: 05-07-2024 Evaluation + Plan note [...] below the maximum daily dose of 5mg/kg [facility] Work Phone: 05-07-2024 History of Present illness Narrative Images from the original note were not included. [facility] RHEUMATOLOGY AND INTERNAL MEDICINE RHEUMATOLOGY PROGRESS NOTE [...] symptoms Records since last seen reviewed in 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 Manjinder LONDON et al. RICK. 2013;310(19): 7696-8293 (http://education.[employer].com/faq/EST393) CHOL/HDLC RATIO 05/05/2024 2.7 <5.0 (calc) Final [...] 8.2 mmol/L Final documented in this encounter [facility] Work Phone: 05-07-2024 Instructions Maura Lange MD - 05/07/2024 10:30 AM EST It was a pleasure to see you today Please call if your symptoms worsen Please review your summary for education and reminders. Follow up at your next appointment. If you had labs/xrays done today, you will be able to view on Sentient. We will contact you when the results [...] here for you documented in this encounter [facility] Work Phone: 05-07-2024 Miscellaneous Notes Associated Problem(s): [...] dose of 5mg/kg documented in this encounter [facility] Work Phone: 04-29-2024 History of Present illness [...] PATIENT PRESENTS WITH AN IMPLANTABLE OR ATTACHED FINISHED CLOTH CHECKER: No RADIOLOGY DEPARTMENT: General X-ray: Exam(s) Completed: Chest X-Ray PERIPHERAL IV DATA: Not applicable SIGNED BY: RT Karan(R) April 29, 2024 3:32 PM documented in this encounter [facility] 04-29-2024 Note HNO ID: [id number] Author: ANIRUDH TIDWELL RT(Randolph) Service: ? Author [...] PATIENT PRESENTS WITH AN IMPLANTABLE OR ATTACHED FINISHED CLOTH CHECKER: No RADIOLOGY DEPARTMENT: General X-ray: Exam(s) Completed: Chest X-Ray PERIPHERAL IV DATA: Not applicable SIGNED BY: Anirudh Tidwell, RT(R) April 29, 2024 3:32 PM [facility] 04-29-2024 Instructions Stephanie Wilder APRN.FURNITURE PACKER - 04/29/2024 2:52 PM EST Images from the original note were not included. - Follow up with PCP in 3-5 days , sooner should any other issues arise. Emergency room if symptoms change or worsen. [facility] [place] [address] [place] [address] Emergency Department Diagnosis: Assessment ACUTE BRONCHITIS: You [...] Sinusitis Patient Education What is Sinusitis? Sinusitis [mjjr-tzc-ejen-tis] is inflammation of the sinuses or swelling [...] help. You may be instructed to take fdgf-kcr-rwbayby medications for symptoms. including fever reducers acetaminophen or ibuprofen, nasal saline spray, cough and cold preparations and decongestants as prescribed by the physician, nurse practitioner or physician fitter's assistant. Self-Care and Prevention: Rest Fluids for hydration Good hand washing Humidifier Avoid smoking and exposure to second hand smoke Avoid sick contacts documented in this encounter [facility] 04-29-2024 Note HNO ID: [id number] Author: STEPHANIE WILDER APRN.MIGUELINA Service: ? Author [...] Normal heart soun (more content not included)... [facility] 04-29-2024 History of Present illness Narrative [place] [...] if symptoms change or worsen. Stephanie Wilder APRN.FURNITURE PACKER documented in this encounter [facility] 03-20-2024 History of Present illness Narrative CHIEF [...] Follow-up 2-3 months. 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 These include apple sauce, toast, [...] increase stomach acid. Don't use aspirin or heqe-zyn-uswspsw pain and fever medicines, if possible. This includes nonsteroidal anti-inflammatory drugs (NSAIDs). Lose excess weight. Finish eating at least 2 hours before you go to bed or lie down. Raise the head of your bed. [phone] [employer]. [address] [place] [address]693. All rights reserved. This information is not intended as a substitute for professional medical care. Always follow your healthcare professional's instructions. Follow Up Care 11/14/2023 18:40:52 With:GISELLE BOYKIN MD Address: [address] [place] [address] [address] [place] [address]- [phone] When:2-4 days [facility] 11-15-2023 Emergency department Discharge summary Discharge Instructions Thank you for allowing [facility] to assist you with your healthcare needs. The following is important discharge information regarding your hospital visit. Diagnosis from Today's Visit Abdominal pain What to Do Next Instructions from Your Care Team No qualifying data available. Post Acute Orders No qualifying data available. You Need to Schedule the Following Appointments Follow Up with GISELLE BOYKIN MD When:Within 2-4 days Where:[address] [place] [address] [address] [place] [address] [phone] Allergies Artificial sweetners Migraine Dilaudid Medications Please [...] foods again, start with small amounts of vksl-ru-atupvk, low-fat foods. These include apple sauce, toast, [...] increase stomach acid. Don't use aspirin or uswb-axd-aermovs pain and fever medicines, if possible. This includes nonsteroidal anti-inflammatory drugs (NSAIDs). Lose excess weight. Finish eating at least 2 hours before you go to bed or lie down. Raise the head of your bed. [id number] [employer]. [address] [place] [address] 11578. All rights reserved. This information is not intended as a substitute for professional medical care. Always follow your healthcare professional's instructions. Additional Information VACCINATE! IT SAVES LIVES! Members of the community who have not yet received the COVID-19 vaccine and would like to receive it can visit one of [facility] vaccine clinics. There are many vaccine clinic locations within the [facility]. For locations and available times, please visit www.[email or web address].[place].g ov/. It is important to note that some COVID mobile vaccine clinics are held outdoors and may be canceled in rainy or stormy conditions. To learn more about pediatric vaccinations (ages 5-11), we invite you to visit the [employer] [facility] webpage. https://www.Medicine in Practices.org/pa ges/2221-Ojadk-Nxosfgqpssi-Freque xzsy-Rulwm-Fvgvuwvyr.html To learn more about the COVID-19 vaccine, we invite you to visit the CDC website for a list of frequently asked questions. https://www.cdc.gov/coronavirus/2 019-ncov/vaccines/faq.html [facility] Patient Portal Access Instructions: Stay connected with your healthcare team and access your personal medical information anytime with the [employer] Patient Portal. If you would like a full copy of your medical records please contact the [facility] Medical Records Department Sunday through Sunday between 8a.m. and 4:30p.m. Please follow the directions below to access the portal: 1.Access the email account you provided upon registration to the [facility].2.Look for an invitation email from [facility].3.Open the email and access the invitation link: Accept Invitation to [facility]4.Fill in the required locke to create your account. Sign into [email or web address] with your username and password that you [...] you will allow to register on the [employer] Patient Portal for access to your information. You can also access the [employer] Patient Portal on the Rizzoma rosi. Simply click on "Health Records" under "Health Data" and then click on the [employer] logo. HOW TO SAFELY DISPOSE OF PRESCRIPTION [...] Call your local pharmacy or go to [email or web address] [email or web address]/[email or web address] to find one close to you.3.Make use of household items: Use cat litter or old coffee grounds to dispose medications if other options are not available. Mix your drugs with these household products, seal them in an airtight container and throw it into the garbage. Call [facility]: [phone] to be sure your drugs can be [...] aware that I should contact my doctor. Patient/Community Relations Advisor Signature: Date/Time: Relationship to Patient: ____ Witness Name/Signature: Date/Time: [facility] 11-14-2023 Note ORIGINAL EXAMINATION: CT OF THE [...] Sign Date: 11/14/2023 9:52:35 PM Ordering Provider: [facility] 10-02-2023 Hospital Discharge instructions Patient Education 10/02/2023 [...] Follow these instructions at home: Medicines Take mqkx-rmb-ziyuvjo and prescription medicines only as told by [...] 12/27/2005 Document Revised: 09/19/2018 Document Reviewed: 09/19/2018 [employer] Patient Education 2020 [employer]. Follow Up Care 09/30/2023 14:05:24 With:VICKY HERNANDEZ MD Address: [address] [facility] [address] [facility] [place] [address]- When:5 to 7 days Comments:Follow up with general cardiology within 1 week. With:Follow up with primary care provider Address: When:5 to 7 days Comments:Follow-up with your PCP within 1 week With:PINEDA ROSSI Address: [address] [facility] [address] [place] [address]- When:10/29/2023 13:00:00 With:GISELLE BOYKIN MD Address: [address] [place] [address]- When:1-2 days Comments:Please call the office to schedule a hospital follow-up appointment. [facility] 10-02-2023 Note Discharge Instructions Thank you for allowing [facility] to assist you with your healthcare needs. The following is important discharge information regarding your hospital visit. Your Care Team GISELLE BOYKIN MD What to do next Scheduled Follow-Up Appointments Appointment Type When With Where Contact Information StatusCV OV 10/29/2023 01:00 PM EDT PINEDA ROSSI [facility] Confirmed Follow Up Appointments Follow Up with VICKY HERNANDEZ MD When:Within 5 to 7 days Where:[address] [facility] [address] [place] [address]- Additional Information: Follow up with general cardiology within 1 week. Follow Up with Follow up with primary care provider When:Within 5 to 7 days Additional Information: Follow-up with your PCP within 1 week Follow Up with GISELLE BOYKIN MD When:Within 1-2 days Where:[address] [place] [address]- Additional Information: Please call the office to schedule a hospital follow-up appointment. Follow Up with PINEDA ROSSI When:10/29/2023 01:00 PM EDT Where:[address] [facility] [address] [place] [address]- The Following Activity and Diet [...] Follow these instructions at home: Medicines Take gmgs-aju-sztdurg and prescription medicines only as told by [...] 12/27/2005 Document Revised: 09/19/2018 Document Reviewed: 09/19/2018 [employer] Patient Education 2020 [employer]. Additional Information VACCINATE! IT SAVES LIVES! Members of the community who have not yet received the COVID-19 vaccine and would like to receive it can visit one of [facility] vaccine clinics. There are many vaccine clinic locations within the [facility]. For locations and available times, please visit https://gettheshot.coronavirus.[place].gov/. It is important to note that some COVID mobile vaccine clinics are held outdoors and may be canceled in rainy or stormy conditions. To learn more about pediatric vaccinations (ages 5-11), we invite you to visit the [employer] webpage. https://www.Medicine in Practices.org/pa ges/6315-Oftpp-Zzbmjhlromk-Freque evlt-Amufp-Torvqynmv.html To learn more about the COVID-19 vaccine, we invite you to visit the CDC website for a list of frequently asked questions.https://www.cdc.gov/cor onavirus/2019-ncov/vaccines/faq.h tml [employer] Patient Portal Access Instructions: Stay connected with your healthcare team and access your personal medical information anytime with the [employer] Patient Portal. Please follow the directions below to create your [facility] account: 1.Access the email account you provided upon registration to the hospital/physician office.2.Look for an invitation email from [facility].3.Open the email and access the invitation link: Accept Invitation to [employer].4.Fill in the required locke to create your account. To access your account, visit [email or web address]. Click the blue button labeled "Access Patient [...] you will allow to register on the [employer] Patient Portal for access to your information. You can also access the [employer] Patient Portal on the [employer] Anywhere rosi. Simply click on "Patient Portal" and then log into your account. If you would like to receive a full copy of your medical records, please contact the [facility] Medical Records Department by calling [phone], Sunday through Sunday between 8 a.m. and [...] Call your local pharmacy or go to [email or web address] Orange.Flexion/7Q6Gi1n to find one close to you.3.Make use of household items: Use cat litter or old coffee grounds to dispose medications if other options are not available. Mix your drugs with these household products, seal them in an airtight container and throw it into the garbage. Call [facility]: [phone] to be sure your drugs can be [...] aware that I should contact my doctor. Patient/Community Relations Advisor Signature: Date/Time: Relationship to Patient: ____ Witness Name/Signature: Date/Time: [facility] 10-02-2023 Discharge summary Date of Service 10/02/23 Discharge Diagnosis Arm pain-intermittent ([id number] - PNED) Back pain ([id number] - PNED) Chest pain ([id number] - PNED) Nausea ([id number] - PNED) Hospital Course Chest pain, ACS [...] 7 days Where:[address] [facility] [place] [address] Additional Information: Follow up with general cardiology within 1 week. Follow Up with Follow up with primary care provider When:Within 5 to 7 days Additional Information: Follow-up with your PCP within 1 week Follow Up with GISELLE BOYKIN MD When:Within 1-2 days Where:[address] [place] [address]- Additional Information: Please call the office to schedule a hospital follow-up appointment. Follow Up with PINEDA ROSSI When:10/29/2023 01:00 PM EDT Where:[address] [facility] [place], [place] [address]- Follow Up Appointments No qualifying data available. [...] PM Digitally Signed by VICKY HERNANDEZ MD [facility] 10-02-2023 Note Date of Service 10/02/2023 Procedure: [...] AM Digitally Signed by ROBBIE LIVINGSTON MD [facility] 10-02-2023 Note ORIGINAL NM MYOCARDIAL SPECT STRESS/REST [...] PM Sign Date: 10/02/2023 8:31:57 PM Ordering Provider:[facility] 10-01-2023 History and physical note Date [...] ROBERT MONCADA MD on 10/01/2023 09:01 AM [facility] 09-30-2023 History and physical note Date of [...] ROBERT MONCADA MD on 10/01/2023 09:01 AM [facility] 09-30-2023 Note SINUS RHYTHM Electronic Signature: ROBBIE LIVINGSTON MD 10/02/2023 14:46:31 [facility] 09-30-2023 Note SINUS RHYTHM Electronic Signature: ROBBIE LIVINGSTON MD 10/02/2023 14:46:27 [facility] 09-30-2023 Note ORIGINAL EXAMINATION: ONE XRAY VIEW [...] Date: 09/30/2023 2:49:27 PM [facility] Note SINUS RHYTHM Electronic Signature: MD MARCY VERONICA MD 09/30/2023 16:24:27 [facility] 09-30-2023 Evaluation + Plan note Extrac elena [...] Provider:PINEDA ROSSI Location:[facility] Appointment Type:CV OV [facility] 06-19-2024 History of Present illness Narrative* Giselle [...] Wt 91 kg (200 lb 11.2 oz) VyC762% BMI 36.71 kg/m BMI: Estimated body mass [...] referral. Follow-up 6 months. documented in this [facility] Work Phone: 1(275) 581-353502-01-2024 Evaluation + Plan note* Assessment & Plan Note - Maura Lange MD - 05/03/2023 12:00 PM ESTAssociated Problem(s): Systemic lupus erythematosus (CMS/HCC) Lupus on plaquenil therapy. More musculoskeletal complaints in the setting of situational depression. Labs ordered today to monitor for increased disease activity, end organ manifestations and to monitor for any drug toxicities due to chronic medications [facility] Work Phone: 1(571) 670-410002-01-2024 Miscellaneous Notes* Assessment & Plan Note - [...] yearly. Managed by PCP [facility]: 1(950) 993-250202-01-2024 Evaluation + Plan note* Assessment & Plan [...] below the maximum daily dose of 5mg/kg [facility] Work Phone: 1(438) 416-674402-01-2024 Evaluation + Plan note* Assessment & Plan Note - Maura Lange MD - 05/03/2023 11:54 AM ESTAssociated Problem(s): Situational depression Under stress --dad has prostate cancer. Counselling done [facility] Work Phone: 1(822) 139-165402-01-2024 Evaluation + Plan note* Assessment & Plan Note - Maura Lange MD - 05/03/2023 11:53 AM ESTAssociated Problem(s): DM2 (diabetes mellitus, type 2) (CMS/HCC) Chronic Condition Documentation: Stable based on symptoms and exam. Continue established treatment plan and follow-up at least yearly. Managed by PCP [facility] Work Phone: 1(386) 668-553002-01-2024 History of Present illness Narrative* Maura Lange [...] index (BMI) of35.0 to 35.9 in adult ([facility]) 05/03/2023 Encounter for monitoring of hydroxychloroquine therapy 04/29/2023 Abnormal mammogram 12/07/2022 Anemia 12/07/2022 Asplenia 12/07/2022 Benign essential hypertension 12/07/2022 Chronic diarrhea 12/07/2022 Chronic migraine without aura, with intractable migraine, so stated, with status migrainosus 12/07/2022 DM2 (diabetes mellitus, type 2) ([facility]) 12/07/2022 GERD (gastroesophageal reflux disease) 12/07/2022 Mixed hyperlipidemia 12/07/2022 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 Situational anxiety 12/07/2022 Situational depression 12/07/2022 Systemic lupus erythematosus ([facility]) 12/07/2022 Vitamin D deficiency 12/07/2022 Liver hemangioma 12/07/2022 Past Medical History: Diagnosis Date Acute pancreatitis 01/22/2003 Anxiety Benign intracranial hypertension 05/22/2018 Pseudotumor cerebri Caffeine use Cyst and pseudocyst of pancreas 01/22/2003 Dental infection 04/18/2023 Diabetes 1.5, managed as type 2 ([facility]) Herpes simplex 08/07/2019 History of herpes simplex infection Hyperkalemia 08/26/2020 History of hyperkalemia 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 Continue established treatment plan and follow-up at least yearly. Managed by PCP GERD (gastroesophageal reflux disease) Relevant Medications omeprazole (PriLOSEC) [address] capsule Situational depression Current Assessment & Plan Under stress --dad has prostate cancer. Counselling done Systemic lupus erythematosus ([facility]) - Primary Current Assessment & Plan Lupus [...] index (BMI) of35.0 to 35.9 in adult ([facility]) Follow up: ___6__months [facility] Work Phone: 1(794) 784-599902-01-2024 Instructions* Patient Instructions* Maura Lange MD - [...] exams Get your immunizations documented in this [facility] Work Phone: [phone]) 596-782112-19-2023 History of Present illness Narrative* Giselle Boykin [...] 6 months and PRN. documented in this [facility] Work Phone: 1(375) 211-899211-01-2023 Note* Significant Event - Jennifer Melo RN - 01/31/2023 10:[address] Vicente at bedside speaking with pt and niece Pt katie PO [facility]11-01-2023 Note* Significant Event - Jennifer Melo RN - 01/31/2023 10:[address] Vicente at bedside speaking with pt and niece Pt katie PO [facility]11-01-2023 Miscellaneous Notes* Significant Event - Jennifer Melo RN - 01/31/2023 10:[address] Vicnete at bedside speaking with pt and navjot wilson PO documented in this [facility] Work Phone: 1(693) 807-917211-01-2023 Hospital Discharge instructions* Discharge Instructions* Jennifer Melo [...] ofhaving your procedure, call the [facility] to be advised whether a visit to [...] discharge from the GI Lab, please call: [phone] from 7 am- 4:30 pm. In the event of an emergency please go to the closest Emergency Department or call Dr. Vicente [phone] documented in this [facility] Work Phone: 1(207) 884-664311-01-2023 History and physical note* Ángel Vicente, - 01/31/2023 9:00 AM EDT Outpatient Hospital Procedure H&P Patient Profile-Procedures Name China Ortiz Date of 1970 Address [address] [facility] [id number] [facility] [address] Primary Secondary Phone Number Giselle Ramos Procedure(s): Colonoscopy Primary contact name and number Extended Emergency Contact Information Primary Emergency Contact: Lizeth Hood Address: [address] [place] [address] [place] Relation: Sibling General Health Weight Vitals: 01/31/23 0911 Weight: 88.9 kg (196 lb) BMI Body mass index is 35.85 kg/m . Allergies Allergies Allergen Reactions Bacitracin Other Hydromorphone Hives and Other Sulfamethoxazole-Trimethoprim Other Past Medical History Past Medical History: Diagnosis Date Anxiety Benign intracranial hypertension 05/22/2018 Pseudotumor cerebri Diabetes 1.5, managed as type 2 ([facility]) Encounter for gynecological examination (general) (routine) without abnormal findings 11/23/2015 Pap smear, as part of routine gynecological examination Hypertension care home (current) use of non-steroidal anti-inflammatories (nsaid) 09/26/2017 [...] met Ángel Vicente DO 01/31/2023 9:24 AM [facility] Work Phone: 1(104) 130-275111-01-2023 History and physical note* Ángel Vicente DO - 01/31/2023 9:00 AM EDT Outpatient Hospital Procedure H&P Patient Profile-Procedures Name China Ortiz Date of 1970 Address [address] [facility] [id number] [place], [place] [id number] Primary Secondary Phone Number PCP Giselle Boykin Procedure(s): Colonoscopy Primary contact name and number Extended Emergency Contact Information Primary Emergency Contact: Lizeth Hood Address: [address] [place], [place] [address] [place] [address] of [facility] Relation: Sibling General Health Weight Vitals: 01/31/23 0911 Weight: 88.9 kg (196 lb) BMI Body mass index is 35.85 kg/m . 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 * On 04/18, was driving home and started having severe right upper abdominal pain. 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 * Made her way home and then daughter drove her to ER at [place]. * Given IV fluids, had CT scan, [...] See above re: CT. * Labs unremarkable. [facility] Work Phone: [phone]) 325-309301-17-2023 History of Present illness Narrative* Here today for hospital follow-up. * On 04/18, was driving home and started having severe right upper abdominal pain. 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 * Made her way home and then daughter drove her to ER at [place]. * Given IV fluids, had CT scan, [...] See above re: CT. * Labs unremarkable. [facility] Work Phone: 1([phone]) 292-800010-01-2022 Influenza virus A and B RNA and SARS-CoV-2 (COVID-19) N gene panel CARLY+probe (Resp)COVID 19 RESULT: SARS-CoV-2 (Agent of COVID-19) Not Detected by RT-PCR or equivalent method. antoni [employer]ZaM[employer] (CB)_EUA This test was developed and its performance characteristics determined by [facility]. This test has been authorized by FDA under an Emergency Use Authorization (EUA). This test has been validated in accordance with the FDA's Guidance Document Policy for DiagnosticsTesting in Laboratories Certified to Perform High Complexity Testing under CLIA prior to Emergency use Authorization for Coronavirus Disease 2019 during the Public Health Emergency" issued on May 31, 2019. Test performed by [facility], [facility] [place], [address] [place] [address]. INFLUENZA A PCR: Negative for Influenza A by RT-PCR INFLUENZA B PCR: Negative for Influenza B by RT-PCRMagruder HospitalComment on above: Performed By: #### [id number] #### [facility] CLIA [id number] [address] [place], [place] [address] [address] [place] [id number] NoteHNO ID: [id number] Author: Koby Braun APRN.FURNITURE PACKER Service: ? Author Type: Nurse Practitioner Type: Progress Notes Filed: 12/31/2021 2:26 PM Note Text: This note was created using NoteWriter. Subjective China Ortiz is a 51 year old female with pmh of PAST MEDICAL HISTORY Diagnosis Date Acute pancreatitis 09/2002 3 previous bouts Cyst and pseudocyst of pancreas 2002 Family history of diabetes mellitus Lupus (HCC) Migraine without aura Presents to [facility] of cough and congestion Patient complains of [...] TABLET, EXTENDED RELEASE 12 HR Koby Braun APRN.CNPMagruder Hospital10-01-2022 History of Present illness Narrative* Koby Braun APRN.FURNITURE PACKER - 12/31/2021 1:12 PM EDT This note was created using LoveByteter. Subjective China Ortiz is a 51 year old female with pmh of PAST MEDICAL HISTORY Diagnosis Date Acute pancreatitis 09/2002 3 previous bouts Cyst and pseudocyst of pancreas 2002 Family history of diabetes mellitus Lupus (HCC) Migraine without aura Presents to [facility] of cough and congestion Patient complains of [...] TABLET, EXTENDED RELEASE 12 HR Koby Braun APRN.FURNITURE PACKER documented [facility] this [facility] History of Present illness Narrative* Doing well on current medications. * Fasting for labs. * States fasting blood sugar 120-130. * Checks BP infrequently at home, not currently dizzy. [facility] [facility] [employer] Phone: [phone]) 553-107006-01-2022 History of Present illness Narrative* Current migraine [...] her out. * Endorses trouble staying asleep. TL-Tycaex[employer]kl[facility] [address] DO Work Phone: 1([phone]) 341-215906-17-2021 History of Present illness Narrative* Migraines have increased in frequency in past 1.5 months. * Had not had a migraine in several months prior to that. * Past 1.5 months has been 2-3 per week. * Endorses many changes and stress over this time period. Niece moved home [facility] home and is due fordelivery of [...] lupus. * Vaccine 2nd dose in august [place] [address] DO Work Phone: Chipr complaint Narrative - Reported* Neurologic Evaluation. * Yearly follow up migraine management [place] [address] DO Work Phone: Chiqe complaint Narrative - Reported* Neurologic Evaluation. * Follow up migraine management [place] [address] DO Work Phone: Evaluation note* Diagnosis Acute cough- Primary Sore throat Acute pharyngitis Viral URI with cough Acute upper respiratory infections of unspecified site [facility]* Diagnosis Encounter for screening for malignant neoplasm of colon documented in this encounter [facility] Work Phone: Evaluation note* Diagnosis Encounter for screening for malignant neoplasm of colon documented in this encounter [facility] Work Phone: Evaluation note* Diagnosis Benign essential hypertension- Primary Essential hypertension, benign Mixed hyperlipidemia Type 2 diabetes mellitus with hyperglycemia, without long-term current use of insulin ([facility]) Anemia, unspecified type Systemic lupus erythematosus, unspecified SLE type, unspecified organ involvement status ([facility]) documented in this encounter [facility] Work Phone: Evaluation note* Diagnosis Systemic lupus erythematosus, unspecified SLE type, unspecified organ involvement status ([facility]/HCC)- Primary Encounter for monitoring of hydroxychloroquine therapy Gastroesophageal reflux disease without esophagitis Esophageal reflux Type 2 diabetes mellitus with hyperglycemia, without long-term current use of insulin ([facility]) Situational depression Class 2 severe obesity due to excess calories with serious comorbidity and body mass index (BMI) of 35.0 to 35.9 in adult ([facility]) documented in this encounter [facility] Work Phone: Evaluation note* Diagnosis Benign essential hypertension- Primary Essential hypertension, benign Skin lesion of chest wall Screening for skin cancer Screening for malignant neoplasm of the skin Type 2 diabetes mellitus with hyperglycemia, without long-term current use of insulin (Multi) Left anterior knee pain documented in this encounter [facility] Work Phone: Evaluation note* Diagnosis Systemic lupus [...] media type- Primary documented in this encounter [facility] Work Phone: Evaluation note* Diagnosis Systemic lupus [...] Anxiety state, unspecified documented in this encounter [facility] Work Phone: Evaluation note* Diagnosis Bronchitis Bronchitis, not specified as acute or chronic [facility]* Diagnosis Bacterial sinusitis- Primary Unspecified sinusitis (chronic) Bronchitis Bronchitis, not specified as acute or chronic [facility]* Diagnosis Systemic lupus erythematosus, unspecified SLE [...] of hydroxychloroquine therapy documented in this encounter [facility] Work Phone: Evaluation note* Diagnosis Systemic lupus [...] Leukocytosis, unspecified type documented in this encounter [facility] Work Phone: Evaluation note* Diagnosis Systemic lupus [...] Leukocytosis, unspecified type documented in this encounter [facility] Work Phone: Evaluation note* Diagnosis Systemic lupus [...] for screening mammogram documented in this encounter [facility] Work Phone: History of Present illness [...] regimen, but she denies medication side effects. [facility] Work Phone: History of Present illness Narrative* The patient is being seen for follow-up of systemic lupus erythematosus. * Interval Events: lupus has been stable. Pt is looking to buy a new house No new symptoms . * Associated symptoms: myalgia. * Medications: the patient is adherent to her medication regimen, but she denies medication side effects. [facility] Work Phone: History of Present illness Narrative* The patient is being seen for follow-up of systemic lupus erythematosus. * Interval Events: some stress--notes more of a rash. Overall is doing ok . * Associated symptoms: myalgia. * Medications: the patient is adherent to her medication regimen, but she denies medication side effects. [facility] Work Phone: history of Present illness Narrative* Doing well on current medications. * Fasting for labs. * Does not check her blood sugar at home. * She would like to get Prevnar and Shingrix vaccines. [facility] Work Phone: history of Present illness Narrative* [...] regimen, but she denies medication side effects. [facility] Work Phone: history of Present illness Narrative* [...] At home taking tylenol without much relief. [facility] Work Phone: history of Present illness Narrative* The patient is being seen for follow-up of systemic lupus erythematosus. * Interval Events: pt reports symptoms are stable Notes some wrist pain but hasn't noted any other symptoms . * Associated symptoms: myalgia. * Medications: the patient is adherent to her medication regimen, but she denies medication side effects. -[facility] Work Phone: Hospital course Narrative No data available for this section [facility] Reason for referral (narrative)* Consultation (Routine) - Authorized Specialty Diagnoses / Procedures Referred By Javier messina Referred To Contact Dermatology Diagnoses Skin lesion of chest wall Screening for skin cancer Giselle Boykin MD [address] [place] [address] Referral ID Status Reason Start Date Expiration Date Visits Requested Visits Authorized [id number] Authorized Specialty Services Required 09/19/2023 09/18/2024 1 1 [facility] Work Phone: Reason for visit Narrative* Imaging (Routine) - Authorized Specialty Diagnoses / Procedures Referred By Javier messina Referred To Contact Radiology Diagnoses Visit for screening mammogram Procedures BI mammo bilateral [place] [address] [place] [address] [address] [place] [phone] Phone: tel: Referral ID Status Reason Start Date Expiration Date Visits Requested Visits Authorized [id number] Authorized Perform Procedure 02/04/2024 02/03/2025 1 1 [facility] Work Phone: Assessments Diagnosis Recurrent incisional hernia Diagnosis Recurrent incisional hernia- Primary Diagnosis Abnormal uterine bleeding Unspecified disorder of menstruation and other abnormal bleeding from female genital tract Diagnosis Recurrent incisional hernia Advance Directives No Advanced Directives Records FoundDocuments on File Type Date Recorded Patient Community Relations Advisor Expl anation Advance Directives and Living Will Power of It Specialist Latest Code Status on File Code Status Date Activated Date Inactivated Comments Full Code 02/18/2016 8:18 PM 02/19/2016 4:42 PM Full Code 02/18/2016 9:54 AM 02/18/2016 8:00 PM Latest Code Status on File Code Status Date Activated Date Inactivated Comments Full Code 12/24/2018 6:03 AM Full Code 02/18/2016 8:18 PM 02/19/2016 4:42 PM Documents on File Type Date Recorded Patient Community Relations Advisor Expl anation ACP-Advance Directive ACP-Power of It Specialist Latest Code Status on File Code Status Date Activated Date Inactivated Comments Full Code 12/03/2019 5:23 PM Full Code 12/03/2019 10:45 AM 12/03/2019 4:40 PM Full Code 12/24/2018 6:03 AM 12/24/2018 1:43 PM Documents on File Type Date Recorded Patient Community Relations Advisor Expl anation Advance Directives and Living Will Power of It Specialist Latest Code Status on File Code Status [...] your doctor if you can take an dgyt-vrt-wizztyd medicine. If your doctor prescribed antibiotics, take [...] take. When should you call for help? [email or web address] anytime you think you may need emergency [...] Where can you learn more? Go to [email or web address] and sign in to your Sentient account. Enter Q131 in the Search Health Information box to learn more about Laparoscopic Hysterectomy: What to Expect at Home. If you do not have an account, please click on the "Sign Up Now" link. Current as of: February 07, 2019 Content Version: 12. ItsMy[employer]s. Care instructions adapted under license by [employer]. If you have questions about a medical condition or this instruction, always ask your healthcare professional. [employer] disclaims any warranty or liability for your [...] through Care Everywhere. * Laparoscopic Hysterectomy: Post-op (Turkmen) * Laparoscopic Hysterectomy: Pre-op (Turkmen) documented in this encounter* Instructions* Zully Mccoy [...] FROM OR VIA CART. SPONT RESP. WITH DATA COMMUNICATIONS TECHNICIAN IN ATTENDANCE. PLACED ON MONITOR. MONITOR ALARMS ON IN PACU. DFR=[id number] documented in this encounter* Rene Gaines MD [...] CT Abdomen Pelvis W Contrast Lenin Weaver, REGISTERED ASSOCIATE - FURNITURE PACKER [address] [place] [address] Specialty Diagnoses / Procedures Referred By Javier messina Referred To Contact Gastroenterology Diagnoses Encounter for screening for malignant neoplasm of colon Procedures Colonoscopy Screening WI COLONOSCOPY FLX DX W/COLLJ SPEC WHEN PFRMD WI COLON CA SCRN NOT HI RSK IND WI COLORECTAL SCRN; HI RISK IND WI COLONOSCOPY W/BIOPSY SINGLE/MULTIPLE WI COLSC FLX W/RMVL OF TUMOR POLYP LESION SNARE TQ WI COLSC FLX W/REMOVAL LESION [place] [id number] [address] [facility] Department of Medicine-Gastroenterol [place] [phone] Referral ID Status Reason Start Date Expiration Date V isits Requested Visits Authorized [id number] Authorized 01/10/2023 07/09/2023 1 1 Chief Complaint [...] section and content) DATE CREATED AUTHOR 12/24/2019 [facility]ul [facility] DATE CREATED AUTHOR AUTHOR'S ORGANIZ ATION 05/14/2020 [facility] DATE CREATED AUTHOR AUTHOR'S ORGANIZ ATION 01/03/2022 [facility] DATE CREATED AUTHOR AUTHOR'S ORGANIZ ATION 11/02/2022 [facility] DATE CREATED AUTHOR AUTHOR'S ORGANIZ ATION 11/02/2022 [facility] DATE CREATED AUTHOR AUTHOR'S ORGANIZ ATION 11/30/[address] [facility] ([place]) DATE CREATED AUTHOR AUTHOR'S ORGANIZ ATION 01/30/2024 [facility] DATE CREATED AUTHOR AUTHOR'S ORGANIZ ATION 05/01/2024 [facility] DATE CREATED AUTHOR AUTHOR'S ORGANIZ ATION 05/13/2024 [facility] DATE CREATED AUTHOR AUTHOR'S ORGANIZ ATION 08/26/2024 [facility] DATE CREATED AUTHOR AUTHOR'S ORGANIZ ATION 08/26/2024 [facility] DATE CREATED AUTHOR AUTHOR'S ORGANIZ ATION 10/13/2024 [facility] Reason for Visit (unrecogniz ed section and content) Status Reason Specialty Diagnoses / Procedures Referre d By Contact Referred To Contact Open Radiology Diagnoses Recurrent incisional hernia Procedures CT Abdomen Pelvis W Contrast Lenin Weaver, SWATI - FURNITURE PACKER [address] [place] [address] Specialty Diagnoses / Procedures Referred By Contac t Referred To Contact Gastroenterology Diagnoses Encounter for screening for malignant neoplasm of colon Procedures Colonoscopy Screening WI COLONOSCOPY FLX DX W/COLLJ SPEC WHEN PFRMD WI COLON CA SCRN NOT HI RSK IND WI COLORECTAL SCRN; HI RISK IND WI COLONOSCOPY W/BIOPSY SINGLE/MULTIPLE WI COLSC FLX W/RMVL OF TUMOR POLYP LESION SNARE TQ WI COLSC FLX W/REMOVAL LESION BY [place] [address] [address] [facility] [place] [address] Referral ID Status Reason Start Date Expiration Date V isits Requested Visits Authorized [id number] Authorized 01/10/2023 07/09/2023 1 1 Reason Comments [...] or prosecute any alcohol or drug abuse patient.[facility] the event this information is protected by the Federal Confidentiality of Alcohol and Drug Abuse Patient Records regulations: The Federal rules restrict any use of the information to criminally investigate or prosecute any alcohol or drug abuse patient.[facility] the event this information is protected by the Federal Confidentiality of Alcohol and Drug Abuse Patient Records regulations: The Federal rules restrict any use of the information to criminally investigate or prosecute any alcohol or drug abuse patient.[facility] Care Teams (unrecognized sec tion and content) It Applications Analyst Relationship Specialty Start Date End Date Giselle Boykin MD [address] [place] [id number] PCP - General 03/24/19 Giselle Boykin MD [address] [place] [address] [address] [place], [place] [phone] PCP - [place] PCP 04/02/22 It Applications Analyst Relationship Specialty Start Date End Date Giselle Boykin MD PCP - General 03/24/19 Giselle Boykin MD PCP - [place] [employer] PCP 04/02/22 It Applications Analyst Relationship Specialty Start Date End Date Giselle Boykin MD [facility] [address] [place] [address] [phone] PCP - [place] [employer] PCP 04/02/22 Giselle Boykin MD [address] [place] [address] [address] [place] [phone] PCP - General Internal Medicine 03/20/23 It Applications Analyst Relationship Specialty Start Date End Date Giselle Boykin MD [facility] [address] [place] [address] [phone] PCP - [place] PCP 04/02/22 Giselle Boykin MD [address] [place] [address] [address] [place] [address] [phone] PCP - General Internal Medicine 03/20/23 Maura Lange MD [address] [place] [address] [address] [place] [address] [phone] Referring Physician Rheumatology 05/03/23 It Applications Analyst Relationship Specialty Start Date End Date Giselle Boykin MD [facility] [address] [place] [phone] PCP - [place] [employer] PCP 04/02/22 Giselle Boykin MD [facility] [address] [place] [address] [phone] PCP - General Internal Medicine 03/20/23 Maura Lange MD [address] [place] [phone] Referring Physician Rheumatology 05/03/23 It Applications Analyst Relationship Specialty Start Date End Date Giselle Boykin MD [address] [place] [address] [address] [place] [phone] PCP - [place] [employer] PCP 04/02/22 Giselle Boykin MD [address] [place] [address] [address] [place] [phone] PCP - General Internal Medicine 03/20/23 Maura Lange MD [address] [place] [address] Referring Physician Rheumatology 05/03/23 It Applications Analyst Relationship Specialty Start Date End Date Giselle Boykin MD [address] [place] [address] PCP - [employer] PCP 04/02/22 Giselle Boykin MD [address] [place] [address] [address] [place] [address] PCP - General Internal Medicine 03/20/23 Maura Lange MD [address] [place] [id number] Referring Physician Rheumatology 05/03/23 It Applications Analyst Relationship Specialty Start Date End Date Giselle Boykin MD [address] [place] [address] [id number] PCP - General Internal Medicine 04/29/24 It Applications Analyst Relationship Specialty [place] [address] [place] [address] [id number] PCP - General Internal Medicine 04/29/24 It Applications Analyst Relationship Specialty Start Date End Date Giselle Boykin MD [address] [place] [address] [id number] PCP - [employer] PCP 04/02/22 Giselle Boykin MD [address] [place] [address] [address] [place] [id number] PCP - General Internal Medicine 03/20/23 Maura Lange MD [address] [place] [address] Referring Physician Rheumatology 05/03/23 It Applications Analyst Relationship Specialty Start Date End Date Giselle Boykin MD [address] [place] [address] PCP - [employer] PCP 04/02/22 Giselle Boykin MD [address] [place] [address] [address] [place] [address] [id number] PCP - General Internal Medicine 03/20/23 Maura Lange MD [address] [place] [id number] Referring Physician Rheumatology 05/03/23 It Applications Analyst Relationship Specialty Start Date End Date Giselle Boykin MD [address] [place] [address] [id number] PCP - [employer] PCP 04/02/22 Giselle Boykin MD [address] [place] [address] [address] [place] [address] [id number] PCP - General Internal Medicine 03/20/23 Maura Lange MD [address] [place] [address] Referring Physician Rheumatology 05/03/23 It Applications Analyst Relationship Specialty Start Date End Date Giselle Boykin MD [address] [place] [address] PCP - [employer] PCP 04/02/22 Giselle Boykin MD [address] [place] [address] PCP - General Internal Medicine 03/20/23 Maura Lange MD [address] [place] [address] Referring Physician Rheumatology 05/03/23 FOR RECORDS PERTAINING [...] BE BASED ON THE PRIMARY CLINICAL RECORDS. [employer] provides no warranty or guarantee of the accuracy or completeness of information in this document.
[2024-10-19 18:35] VITALS: BP 140/88; PULSE 93; RESP 25; TEMP 37.3; O2SAT 97
[2024-10-19] MEDS: Azithromycin 500 MG in 0.9% Normal Saline (250mL Bag) 250 ML 255 MG IV (18:52)
[2024-10-19 19:00] VITALS: BP 118/72; PULSE 92; RESP 24; TEMP 37.4; O2SAT 97
--- NOTE | 2024-10-19 19:18 | PCM.HP.STD ---
HPI - General General Date of Admission: 10/19/24 Date of Service: 10/19/24 Chief Complaint: Aches HPI Narrative CHINA ORTIZ, is a 54-year-old female history of multiple abdominal surgeries, diabetes, GERD, high cholesterol, depression and anxiety presented [facility] ED 10/19/2024 with fever, chills, nausea and vomiting since Sunday. She has chronic abdominal pain but has been having some right flank pain which is abnormal for her. Patient was concerned as she felt similar to when she had been septic in the past so she came to the ED. In the ED temp 101.2, heart rate 121, blood pressure 165/79, respiratory rate 26 and pulse ox 94% on room air. CBC with white blood cell count of 27.8 with left shift. CMP with sodium 132, bicarb 19.8, BUN 12 with a creatinine of 1.57. Lactic acid 2. UA does not appear infectious. CXR appears to have a right lower lobe pneumonia. CT of the abdomen and pelvis redemonstrated patchy consolidation and groundglass opacity in right lower lobe likely infection with no acute intra-abdominal abnormality Patient given IV fluids and antibiotics and hospitalist contacted for admission. Patient evaluated at bedside. She reports she began to have fevers and chills and feel achy on Sunday to the point she could barely stand. She has had some cough but reports it is chronic and also has chronic abdominal pain with nausea but feels that has been at her baseline. Aside from the fever and chills and a slight headache she did not have any other localizing complaints aside from her chronic complaints [facility] Medical History Physical exam, pre-employment Home Medications Medication Instructions Recorded Last Taken Type acetaminophen 500 mg capsule 1,000 mg PO Q4H PRN fever or pain 10/19/24 10/19/24 History bupropion HCl 150 mg 24 hr tablet, 150 mg PO DAILY 10/19/24 10/19/24 History extended release escitalopram oxalate 20 mg tablet 20 mg PO DAILY 10/19/24 10/18/24 History ferrous sulfate 325 mg (65 mg 325 mg PO BID 10/19/24 10/19/24 History iron) tablet,delayed release hydroxychloroquine 200 mg tablet 200 mg PO BID 10/19/24 10/19/24 History hydroxyzine HCl 25 mg tablet 25 mg PO BID PRN anxiety 10/19/24 10/19/24 History lisinopril 40 mg tablet 40 mg PO DAILY 10/19/24 10/18/24 History metformin 500 mg tablet 1,000 mg PO BID 10/19/24 10/19/24 History metoprolol succinate 50 mg 50 mg PO DAILY 10/19/24 10/19/24 History tablet,extended release 24 hr omeprazole 40 mg capsule,delayed 40 mg PO DAILY 10/19/24 10/19/24 History release rosuvastatin 5 mg tablet 5 mg PO QHS 10/19/24 10/18/24 History Allergy/AdvReac Type Severity Reaction Status Date / Time hydromorphone (From Dilaudid) Allergy Intermediate Rash Verified 10/19/24 15:36 Social History Smoking Status: Never smoker ROS ROS Narrative General: Fevers and chills HENT: Reports headache, denies stuffy nose, denies sore throat EYES: Denies changes in vision Resp: Chronic cough, denies shortness of breath Cardiac: Denies chest pain GI: Denies diarrhea, chronic nausea and chronic abdominal pain : Denies changes in urination Extremity: Denies swelling MSK: Denies weakness Neuro: Denies any numbness/tingling Heme: Denies any bleeding or bruising Skin: Denies rashes Psychiatric: No complaints voiced Vital Signs Vital Signs Vital Signs: 10/19/24 15:34 10/19/24 15:56 10/19/24 15:56 Temperature 101.2 F H 101.2 F H Temperature Source Oral Oral Pulse Rate 121 H 111 H Respiratory Rate 26 H 26 H Respiratory Effort Respiratory Pattern Blood Pressure 165/79 H 165/79 H Blood Pressure Mean 107 107 Pulse Ox 94 94 Oxygen Delivery Method Room Air Room Air 10/19/24 15:57 10/19/24 16:46 10/19/24 18:35 Temperature 101.7 F H Temperature Source Oral Pulse Rate 101 H 93 Respiratory Rate 18 25 H Respiratory Effort Labored Respiratory Pattern Tachypnea Blood Pressure 133/88 H 140/88 H Blood Pressure Mean 103 105 Pulse Ox 92 97 Oxygen Delivery Method Room Air 10/19/24 18:35 10/19/24 19:00 Temperature 99.2 F H 99.3 F H Temperature Source Oral Pulse Rate 93 92 Respiratory Rate 25 H 24 H Respiratory Effort Respiratory Pattern Blood Pressure 140/88 H 118/72 Blood Pressure Mean 105 87 Pulse Ox 97 97 Oxygen Delivery Method Room Air Weight Weight: 92 kg Body Mass Index (BMI) 34.8 Physical Exam Narrative General: Alert, oriented, HEENT: Atraumatic, normocephalic Eyes: Anicteric, normal conjunctiva, extraocular movements grossly intact Neck: Supple Respiratory: Clear to auscultation bilaterally, normal respiratory effort Cardiovascular: As noted DIMINISHED at right lung base GI: Soft, no specific areas of tenderness, no rebound, guarding, rigidity nondistended Extremities: No edema Musculoskeletal: Moving all extremities Neuro: No overt focal neurological deficits Skin: No rashes appreciated Psych: Cooperative Results Lab / Micro Data 10/19/24 15:46 10/19/24 15:46 Labs: Laboratory Results - last 24 hr 10/19/24 15:46: WBC 27.8 H, RBC 4.24, Hgb 12.6, Hct 36.9 L, MCV 87.0, MCH 29.7, MCHC 34.1, RDW Std Deviation 43.6, RDW Coeff of [place] 13.8, Plt Count 430, MPV 10.0, Immature Gran % (Auto) 1.400 H, Neut % (Auto) 84.7 H, Lymph % (Auto) 6.3 L, [place] % (Auto) 7.0, Eos % (Auto) 0.0, Baso % (Auto) 0.6, Absolute Neuts (auto) 23.6 H, Absolute Lymphs (auto) 1.76, Nucleated RBC % 0.1, PT 14.1, INR 1.1, APTT 31.3, Sodium 132 L, Potassium 5.1, Chloride 98, Carbon Dioxide 19.8 L, Anion Gap 15, BUN 12, Creatinine 1.57 H, Estim Creat Clear Calc 46.07 L, Est GFR (MDRD) Non-Af 39 L, BUN/Creatinine Ratio 7.7 L, Glucose 171 H, Lactic Acid 2.0, Calcium 9.3, Total Bilirubin 0.21, AST 40 H, ALT 13, Alkaline Phosphatase 150 H, Total Protein 7.3, Albumin 3.5, Globulin 3.8, Albumin/Globulin Ratio 0.9 10/19/24 16:18: Urine Color Yellow, Urine Clarity Sl. Cloudy, Urine pH 5.0, Ur Specific [place] 1.020, Urine Protein 100 H, Urine Glucose (UA) Normal, Urine Ketones Negative, Urine Occult Blood 10 H, Urine Nitrite Negative, Urine Bilirubin Negative, Urine Urobilinogen Normal, Ur Leukocyte Esterase Negative, Urine RBC 0-5 SEEN, Urine WBC 0-5 SEEN, Ur Squamous Epith Cells 0-5 SEEN, Urine Bacteria 2+, Fine Granular Casts > 100 SEEN, Coarse Granular Casts 0 SEEN, Urine Mucus 0 SEEN Micro: Microbiology 10/19/24 15:52 Mucosa - Nose SARS-CoV-2, Influenza & RSV (PCR) - Final Rhythm Strip Rhythm Strip: Sinus Tach Rate: 107 Ectopy: None Imaging Radiology Impression Chest X-Ray 10/19/24 15:40 IMPRESSION: Right base pneumonia Reading [facility] Abdomen/Pelvis CT 10/19/24 15:47 IMPRESSION: 1. Patchy consolidation and ground-glass opacity in the right lower lobe, likely representing infection. Recommend repeat imaging in 8-12 weeks to ensure resolution. 2. No acute intra-abdominal abnormality. 3. 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 Correlate with surgical history. If patient had prior splenectomy, recommend further imaging of the structure posterior to the stomach. 4. Numerous splenic hypodensities, majority of which are subcentimeter in size. Consider dedicated liver MRI or CT if patient has risk factors for hepatic malignancy. Reading Location: [id number] Assessment & Plan Assessment/Plan (1) Fever: (2) Right lower lobe pneumonia: PLAN: Plan # Right lower lobe pneumonia - Patient presented with temperature of 101.2, respiratory rate of 26 and heart rate of 121. Creatinine is 1.57 however no baseline available in our system. Patient does not have low platelets, low blood pressure, respiratory distress, decreased GCS score or other findings that would meet step 3 criteria for sepsis will be admitted to PCU to treat for pneumonia -Chest x-ray suspicious for right lower lobe pneumonia -UA does not appear infectious -CT abdomen pelvis redemonstrated the right lower lobe patchy consolidation suspicious for infection, it recommended repeating imaging in 8 to 12 weeks to ensure resolution -DuoNebs and as needed albuterol -Sputum culture if able, COVID [], respiratory panel [] -Urine antigens -Mucinex, I/S -Rocephin and doxycycline, doxycycline over azithromycin due to patient being on multiple QTc prolonging medicines, QTc in the ED 440 # Hypodense hepatic lesions -Multiple hypodense lesions most of which are subcentimeter so evaluation is limited, there is 1 this 2.3 cm in the right hepatic lobe that is likely a simple cyst -No imaging in our system available for previous comparison -Can consider further imaging if there is risk for malignancy # QUANG versus CKD -No previous available results in our system so unclear the chronicity -IV fluids repeat in the a.m. -Can consider further workup if no improvement - Will hold lisinopril pending repeat kidney function in the a.m. #Hyponatremia - Unclear chronicity, sodium mildly low at 132 -Patient to be hydrated with IV fluids, repeat in the a.m., if any worsening may need to consider further workup #Type 2 diabetes mellitus -Glucose checks and sliding scale insulin #GERD -Continue PPI #Depression/anxiety -Continue home medications # Hypercholesterolemia - Continue with statin #DVT ppx: Heparin subcu Joycelyn Crowley MD Charges/Coding Visit Charges Inpatient E&M: 50532 Init Hosp L2
[2024-10-19 20:00] LABS: Reflex Lactate? Y
[2024-10-19 20:37] VITALS: BMI 34.7
--- OUTSIDE RECORDS SUMMARY | 2024-10-19 20:41 | XMS RPT_ITS | CCD ---
Author Organization [facility] Team Providers Care Web Design Intern Name Role Phone Giselle Boykin Primary Care Provider Maura Lange Unavailable Unavailable Boykin, Giselle Unavailable Unavailable Nadir, Olivia Unavailable Unavailable Fenohr, Emili Unavailable Unavailable Boykin, Giselle E Unavailable Unavailable Fenohr, Emili M Unavailable Unavailable Boykin, Giselle E Primary Care Provider [phone] Alejandro, Giselle E Unavailable Unavailable Unavailable Unavailable [...] U navailable Nazario, Dr. Lorenzo Attending Unavailable Boykin, Dr. Giselle Hendricks Referring U navailable Boykin, Dr. Giselle Hendricks Primary Care U navailable Boykin, Dr. Giselle Hendricks Referring U navailable Boykin, Dr. Giselle Hendricks Primary Care U navailable Boykin, Dr. Giselle Hendricks Attending U navailable Boykin, Dr. Giselle Hendricks Attending U navailable Boykin, Dr. Giselle Hnedricks Referring U navailable Boykin, Dr. Giselle Hendricks Primary Care U navailable Boykin, Dr. Giselle Hendricks Referring U navailable Boykin, Dr. Giselle Hendricks Primary Care U navailable JESSICA, MIGUELINA SAULITA Attending Unavailable Boykin, Dr. Giselle Hendricks Referring [...] Care Unavailable VICKY HERNANDEZ MD Attending U eulalia JAMIL MD, JACKIE Consulting Unavailable GISELLE BOYKIN MD Primary [...] Unavailable BOYKIN, GISELLE E Primary Care Unavailable KUCHYNARTIS ASHTONE Attending Unavailable BOYKIN, GISELLE E Primary Care Unavailable YASMINE LOPEZ Attending Unavailable BOYKIN, GISELLE E Primary Care Unavailable BOYKIN, GISELLE E Attending Unavailable BOYKIN, GISELLE E Primary Care Unavailable KUCHYNSKClair, MAURA Attending Unavailable BOYKIN, GISELLE E Primary Care Unavailable BOYKIN, GISELLE E Attending Unavailable BOYKIN, GISELLE E Attending Unavailable BOYKIN, GISELLE E Primary Care Unavailable BOYKIN, GISELLE E Primary Care Unavailable BOYKIN, GISELLE E Referring Unavailable BOYKIN, GISELLE E Primary Care Unavailable Alejandro PATRICK, Dr. Giselle Asif Primary Care Provider Montez PATRICK, Dr. Maza Emergency Provider Keo PATRICK, Dr. Hirsch Admit Provider Keo PATRICK, Dr. Hirsch Attending Provider Keo PATRICK, Dr. Hirsch Other Provider [phone] Allergies Allergy Classification Reported Allergen(s) Allergy Type Date of Onset Reaction(s) Facility Bacitracin (7 sources) Bacitracin; Translations: [bacitracin] Drug Allergy Other [place] [address] Work Phone: Opioid Agonists (8 sources) HYDROmorphone; Translations: [Dilaudid TABS] Drug Allergy Vomiting, Hives [facility] Sulfamethoxazole / Trimethoprim (7 sources) Sulfamethoxazole / Trimethoprim; Translations: [Bactrim] Drug Allergy Other [place] [address] Work Phone: Unclassified (2 sources) Artificial sweetners Food allergy Migraine (disorder) [facility] (10 sources) HYDROmorphone; Translations: [HYDROMORPHONE HCL] Drug Allergy 10-21-19 16 Nausea And Vomiting, Rash, Vomiting [place] (20 sources) Sulfamethoxazole / Trimethoprim; Translations: [Bactrim] Drug Allergy 05-20-19 17 Other (See Comments), Other: See Comments, Other [place] (20 sources) Bacitracin; Translations: [bacitracin] Drug Allergy 12-08-19 23 Other, Other: See Comments [facility] (20 sources) HYDROmorphone; Translations: [Dilaudid TABS] Drug Allergy 12-08-19 23 Vomiting, Hives, Other [facility] DO Work Phone: (5 sources) Sulfamethoxazole / Trimethoprim Drug Allergy Other [facility] DO Work Phone: (16 sources) Morphinan opioid; Translations: [OPIOIDS - MORPHINE ANALOGUES] Propensity to adverse reactions 03-30-20 04 Rash, Vomiting, Nausea And Vomiting, Nausea/vomitin g [facility] (14 sources) liraglutide; Translations: [LIRAGLUTIDE] Drug Allergy 03-20-20 23 [facility] Work Phone: (2 sources) HYDROmorphone; Translations: [HYDROMORPHONE] Drug Allergy 12-08-19 [facility] 3 Repository Medications Current Medications Medication Drug Class(es) Dates Sig (Normalized) Sig (Original) acetaminophen 500 mg oral capsule (4 sources) Start: 10-19-2024 take 2 capsules by mouth every four hours as needed for pain Acetaminophen 500 mg capsule Active 1000 mg PO Q4H as needed for fever or pain October 19, 2024 12:00am Start: 12-03-2019 acetaminophen (TYLENOL) tablet 650 mg [...] (PERCOCET) 5-325 MG per tablet 1 tablet [id number] actuat albuterol 0.09 mg/actuat metered dose [...] Start: 08-30-2022 take 1 tablet by kayley th twice daily Amoxicillin-Pot Clavulanate 875-125 MG Oral Tablet Take 1 tablet twice daily Quantity: 20 Refills: 0 Ordered: 30-Aug-2022 Yasmine Mitchell Start : 30-Aug-2022 Active ascorbic acid 500 [...] hydrochloride 150 mg extended release oral tablet (8 sources) Aminoketone Start: 07-08-2024 End: 07-08-2025 take 1 tablet by mouth once daily Bupropion Hcl 150 mg tablet extended release 24 hr Active 150 mg PO DAILY October 19, 2024 12:00am Start: 03-20-2024 End: 06-18-2024 take 1 tablet [...] Active Start: 12-24-2018 take 1 tablet by [facility] twice daily doxycycline hyclate (VIBRA-TABS) 100 MG tablet Take 1 tablet by mouth 2 times daily 14 tablet 1 12/24/2018 Active escitalopram 20 mg oral tablet (20 sources) Serotonin Reuptake Inhibitor Start: 04-23-2017 End: 04-08-2025 take 1 tablet by mouth once daily Escitalopram Oxalate 20 mg tablet Active 20 mg PO DAILY October 19, 2024 12:00am Start: 04-23-2017 take 8 tablets by [facility] once daily Escitalopram Oxalate 20 MG Oral Tablet Once daily Quantity: 90 Refills: 3 Ordered: 07-Nov-2021 Giselle Boykin MD Start : 23-Apr-2017 Active Start: 04-23-2017 take 7 tablets by [facility] once daily Escitalopram Oxalate 20 MG Oral [...] 09/30/23 Status: Ordered ferrous sulfate 325 mg delayed release oral tablet (20 sources) Start: 10-19-2024 take 1 tablet by mouth twice daily Ferrous Sulfate 325 mg (65 mg iron) tablet,delayed release (DR/EC) Active 325 mg PO TWICE A DAY October 19, 2024 12:00am Start: 05-30-2024 End: 05-30-2025 take 1 tablet by mouth twice daily ferrous sulfate tablet Indications: Anemia, unspecified type Take 1 tablet (325 mg) by mouth 2 times daily (morning and late afternoon). 180 tablet 3 05/30/2024 05/30/2025 Active Start: 03-16-2024 take 1 tablet by kayley th twice daily at mealtime FEROSUL 325 mg [...] nasal spray Indications: Bacterial sinusitis Use 1 [place] in each nostril two times a day. [...] take 1 tablet by mouth twice daily Hydroxychloroquine 200 mg tablet Active 200 mg PO TWICE A DAY October 19, 2024 12:00am Start: 09-16-2012 End: 05-31-2024 take 1 tablet [...] mg oral tablet (20 sources) Antihistamine Start: 10-20-19 take 1 tablet by mouth twice daily as needed for anxiety Hydroxyzine Hcl 25 mg tablet Active 25 mg PO TWICE A DAY as needed for anxiety October 19, 2024 12:00am Start: 07-08-2024 take 1 tablet by kayley th twice [...] Start: 12-05-2023 lancing [facility]raw [facility] Indications: Type 2 diabetes mellitus with hyperglycemia, without long-term current use of insulin Use to check fasting glucose once daily. 100 each 3 12/05/2023 Active levonorgestrel 0.088580 mg/hr intrauterine system (1 source) Progestin, Progestin-containin g Intrauterine Device Start: 01-17-2019 Levonorgestrel (KYLEENA) IUD 19.5 mg 1 each 10 ml lidocaine hydrochloride 10 mg/ml injection (1 source) Antiarrhythmic, Amide Local Anesthetic Start: 12-24-2018 End: 12-24-2018 lidocaine PF 1 % injection 1 mL lisinopril 40 mg oral tablet (20 sources) Angiotensin Converting Enzyme Inhibitor Start: 10-19-2024 take 1 tablet by mouth once daily Lisinopril 40 mg tablet Active 40 mg PO DAILY October 19, 2024 12:00am Start: 08-29-2023 End: 08-28-2024 take 1 tablet [...] Active Start: 10-21-2014 take 2 tablets by mo neh once daily Lisinopril 20 MG Oral Tablet TAKE 2 TABLETS BY MOUTH ONCE DAILY Quantity: 180 Refills: 3 Ordered: 10-Oct-2022 Giselle oBykin MD Start : 21-Oct-2014 Active lisinopril (PRIN IVIL;ZESTRIL) 2.5 MG tablet Take 20 mg by mouth every morning 0 Active Comment on above: Take 20 mg by mouth once daily. 1 ml meperidine hydrochloride 50 mg/ml injection (1 source) Opioid Agonist Start: 9 meperidine (DEMEROL) injection 12.5 mg metFORMIN hydrochloride 500 mg oral tablet (20 sources) Biguanide Start: End: take 2 tablets by mouth twice daily Metformin 500 mg tablet Active 1000 mg PO TWICE A DAY October 19, 2024 12:00am Start: 12-14-2015 End: 05-21-2024 take 1 tablet by mouth twice daily metFORMIN (GLUCOPHAGE) 500 mg tablet Take 500 mg by mouth twice daily. 10/27/2021 Active Comment on above: Take 500 mg by mouth twice daily. 24 hr metoprolol succinate 50 mg extended release oral tablet (20 sources) beta-Adrenergic Maikel Start: 10-19-2024 take 1 tablet by mouth once daily Metoprolol Succinate 50 mg tablet extended release 24 hr Active 50 mg PO DAILY October 19, 2024 12:00am Start: 09-30-2023 End: 07-02-2024 metoprolol succinate 50 mg o ral TABLET extended release Start: 10/02/23 8:00:00 AM [...] Take 50 mg by mouth once daily. morphine (PF) injection 2 mg (1 source) Start: 12-03-2019 morphine (PF) injection 2 mg omeprazole 40 mg delayed release oral capsule (20 sources) Proton Pump Inhibitor Start: 05-30-2024 End: 05-30-2025 take 1 capsule by mouth once daily Omeprazole 40 mg capsule,delayed release(DR/EC) Active 40 mg PO DAILY October 19, 2024 12:00am Start: 07-16-2017 End: 05-02-2024 take 1 capsule [...] tablet (20 sources) Serotonin-3 Receptor Antagonist Start: 5 End: take 1 tablet by mouth every [...] End: 04-08-2025 take 1 tablet by mouth at bedtime Rosuvastatin 5 mg tablet Active 5 mg PO AT BEDTIME October 19, 2024 12:00am Start: 12-03-2019 take 5 mg by mouth [...] mg/ml oral solution (2 sources) Phenothiazine, Uncompetitive M-sxbwjx-D-aspartat e Receptor Antagonist, Sigma-1 Agonist Start: 08-30-2022 take 5 mL by mouth every four to six hours as needed for cough Promethazine-DM 6.25-15 MG/5ML Oral Syrup TAKE 5 ML EVERY 4 TO 6 HOURS NEEDED FOR COUGH. Quantity: 1 Refills: 0 Ordered: 30-Aug-2022 Yasmine Mitchell Start : 30-Aug-2022 Active dimenhyDRINATE 50 mg oral tablet (1 source) Start: 12-03-2019 End: 12-03-2019 dimenhyDRINATE (DRAMAMINE) tablet 100 mg Start: 12-03-2019 End: 12-03-2019 dimenhyDRINATE (DRAMAMINE) t ablet 100 mg ergocalciferol 1.25 mg oral capsule (16 sources) Provitamin D2 Compound Start: 08-26-2020 End: 08-31-2021 take 1 capsule by mouth every week Vitamin D (Ergocalciferol) 1.25 MG (00693 UT) Oral Capsule TAKE 1 CAPSULE WEEKLY. [...] Giselle Boykin MD Start : 27-Oct-2022 Active oseltamivir 75 mg oral capsule (2 sources) Neuraminidase Inhibitor Start: 04-05-2022 take 1 capsule by mouth twice daily Oseltamivir Phosphate 75 MG Oral Capsule TAKE 1 CAPSULE TWICE DAILY. Quantity: 10 Refills: 0 Ordered: 05-Apr-2022 Giselle Boykin MD Start : 05-Apr-2022 Active PENICILLIN V POTASSIUM ORAL (2 sources) End: 04-29-2024 take 500 mg by mouth four times [...] Problem Date Documented Date Episodic/Chronic Abdominal pain (9 sources) Recurrent abdominal pain; Translations: [Abdominal pain, [...] 12-07-2022 Chronic Diseases of white blood cells (9 sources) Leukocytosis; Translations: [Elevated white blood cell count, unspecified] Onset: 5 05-07-2024 Chronic Disorders of lipid metabolism (20 sources) Mixed hyperlipidemia; Translations: [Mixed hyperlipidemia] Onset: 3 12-07-2022 Chronic Esophageal disorders (20 sources) Gastroesophageal reflux disease; Translations: [Esophageal reflux] Onset: 3 12-07-2022 Chronic Essential hypertension (20 sources) Benign essential hypertension; Translations: [Benign essential hypertension] Onset: 6 11-10-2015 Chronic Fever of unknown origin (2 sources) Fever; Translations: [Fever, unspecified] 10-19-2024 Episodic Fluid and electrolyte disorders (10 sources) Hyperkalemia; Translations: [Hyperpotassemia] Episodic Headache; including migraine (20 sources) Refractory migraine without aura; Translations: [Chronic migraine without aura, with intractable migraine, so stated, with status migrainosus] Onset: 3 07-27-2003 Chronic Immunizations and screening for infectious disease (20 sources) Exposure to streptococcal pharyngitis; Translations: [Needs influenza immunization] Resolved: Episodic Influenza (2 sources) Influenza-like illness; Translations: [...] D deficiency] Onset: 3 12-07-2022 Chronic Other aftercare (20 sources) Patient encounter status; Translations: [Encounter for therapeutic drug monitoring] Onset: 4 Resolved: 8 05-03-2023 Episodic Comment on above: initiated med 2010; Other congenital anomalies (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) Asplenia; Translations: [...] lower extremity; Translations: [Lower extremity weakness] Chronic Pneumonia (except that caused by tuberculosis or sexually transmitted disease) (2 sources) Right lower zone pneumonia; Translations: [Pneumonia, unspecified organism] 10-19-2024 Episodic Residual codes; unclassified (16 sources) Increased body [...] source) Other thrombocytosis; Translations: [Other thrombocytosis] Onset: 3 Past or Other Problems Problem Classification Problem [...] 12-07-2022 Episodic Comment on above: video endoscopy 2018 ; Nonmalignant breast conditions (20 sources) Breast lump; Translations: [Lump or mass in breast] Resolved: 10-07-2014 Episodic Nonspecific chest pain (8 sources) Chest discomfort; Translations: [Other chest pain] Onset: 11-01-2023 10-29-2023 Episodic Other aftercare (18 sources) Surgical follow-up; Translations: [Follow-up examination, following other surgery] Onset: 02-29-2016 Resolved: 12-27-2017 12-27-2017 Episodic Other aftercare (6 sources) Long-term current use of hydroxychloroquine; Translations: [Encounter for therapeutic drug level monitoring] Onset: 04-29-2023 04-29-2023 Episodic Other aftercare (2 sources) Encounter for therapeutic drug level monitoring; Translations: [Encounter for therapeutic drug level monitoring] Onset: 04-29-2023 Episodic Other aftercare (2 sources) Other mcc (current) drug therapy; Translations: [Other supervisor intermediates (current) drug therapy] Onset: 04-29-2023 Episodic Other [...] Episodic Comment on above: Added by Problem Lis t Migration; 2013-03-05; Other lower respiratory disease [...] Test Name Value Interpretation Reference Range Facility Absolute lymphocyte countOrd ered By: Link Herrmann on 10-19-2024 Lymphocytes Auto (Unsp spec) [#/Vol] 1.76 10*3/uL 0.83-4.51 [facility] Absolute neutrophil countOrd ered By: Link Herrmann on 10-19-2024 Neutrophils (Bld) [#/Vol] 23.6 10*3/uL High 2.0-7.7 [facility] Activated partial thrombopla stin time (aPTT) in platelet poor plasma by coagulation aOrdered By: Link Herrmann on 10-19-2024 aPTT Coag (PPP) [Time] 31.3 s 24.1-36.2 [facility] Anion gap in Serum or Plasma Ordered By: Link Herrmann on 10-19-2024 Anion gap [Moles/Vol] 15 mmol/L 5-15 [facility] Automated lymphocyte count a s percentage of total leukocytesOrdered By: Link Herrmann on 10-19-2024 Lymphocytes/100 WBC Auto (Unsp spec) 6.3 % Low 19-41 [facility] BUN/creatinine ratioOrdered By: Link Herrmann on 10-19-2024 Urea nitrogen/Creatinine [Mass ratio] 7.7 mg/mg Low 10-20 [facility] Basophil percentageOrdered B y: Link Herrmann on 10-19-2024 Basophils/100 WBC (Bld) 0.6 % 0-1 [facility] Bilirubin Test strip Ql (U)O rdered By: Link Herrmann on 10-19-2024 Bilirubin Ql (U) Negative Negative [facility] Bilirubin, totalOrdered By: Link Herrmann on 10-19-2024 Bilirubin [Mass/Vol] 0.21 mg/dL 0.00-1.30 [facility] Carbon dioxide, total [Moles /volume] in Central venous bloodOrdered By: Link Herrmann on 10-19-2024 CO2 [Moles/Vol] 19.8 mmol/L Low 21.0-32.0 [facility] Chloride assayOrdered By: Mandeep Herrmann on 10-19-2024 Chloride [Moles/Vol] 98 mmol/L 98-108 [facility] Eosinophil percentageOrdered By: Link Herrmann on 10-19-2024 Eosinophils/100 WBC (Bld) 0.0 % 0-5 [facility] Erythrocyte distribution wid th ratioOrdered By: Link Herrmann on 10-19-2024 Erythrocyte distribution width (RBC) [Ratio] 13.8 % 11.6-14.6 [facility] Erythrocyte distribution wid th standard deviationOrdered By: Link Herrmann on 10-19-2024 Erythrocyte distribution width (RBC) [Ratio] 43.6 fl 35.1-43.9 [facility] Glomerular filtration rate ( GFR) estimation/1.73 sq m using serum, plasma, or whole bOrdered By: Link Herrmann on 10-19-2024 GFR/1.73 sq M.predicted among non-blacks MDRD (S/P/Bld) [Vol rate/Area] 39 mL/min/{1.73_m2} Low >60 [facility] Comment on above: mL/min/1.73m2 CKD-EP I Creatinine Equation (2020) Hematocrit Auto (Bld) [Volum e fraction]Ordered By: Link Herrmann on 10-19-2024 Hematocrit (Bld) [Volume fraction] 36.9 % Low 37-47 [facility] Hemoglobin measurementOrdere d By: Link Herrmann on 10-19-2024 Hemoglobin (Bld) [Mass/Vol] 12.6 g/dL 12.0-15.0 [facility] Immature granulocytes/100 WB C Auto (Bld)Ordered By: Link Herrmann on 10-19-2024 Immature granulocytes/100 WBC (Bld) 1.400 % High 0.0-0.9 [facility] Comment on above: IG% - Immature Granu locytes (promyelocytes, myelocytes and metamyelocytes) > 1% indicates that a LEFT SHIFT is Present. Influenza virus A and B and SARS-CoV-2 (COVID-19) and Respiratory syncytial virus RNAOrdered By: Link Herrmann on 10-19-2024 SARS-CoV-2 (COVID-19) RNA CARLY+probe Ql (Unsp spec) [facility] International normalized rat io (INR) calculationOrdered By: Link Herrmann on 10-19-2024 INR Coag (Bld) [Relative time] 1.1 {INR} [facility] Ketones Test strip Ql (U)Ord ered By: Link Herrmann on 10-19-2024 Ketones Ql (U) Negative Negative [facility] - Chemistry and C hemistry - challengeOrdered By: Link Herrmann on 10-19-2024 AST [Catalytic activity/Vol] 40 U/L High <32 [facility] Comment on above: Hemolysis present, R esults could be affected. Lactic acid measurementOrder ed By: Link Herrmann on 10-19-2024 Lactate [Moles/Vol] 2.0 mmol/L 0.0-2.0 [facility] Comment on above: Critical Result(s) C alled at: 10/19/2024-16:44 by: Juan J Poe to Valerie Brown. Results read back by same. MCV (mean corpuscular volume ) determinationOrdered By: Link Herrmann on 10-19-2024 MCV (RBC) [Entitic vol] 87.0 fL 81-99 [facility] Mean corpuscular hemoglobin (MCH) determinationOrdered By: Link Herrmann on 10-19-2024 MCH (RBC) [Entitic mass] 29.7 pg 27.0-32.0 [facility] Mean corpuscular hemoglobin concentration (MCHC) determinationOrdered By: Link Herrmann on 10-19-2024 MCHC (RBC) [Mass/Vol] 34.1 g/dL 32-36 [facility] Mean platelet volume determi nationOrdered By: Link Herrmann on 10-19-2024 Platelet mean volume (Bld) [Entitic vol] 10.0 fL 6.2-12.0 [facility] Microscopic analysis of urin e for red blood cells (RBC)Ordered By: Link Herrmann on 10-19-2024 Microscopic analysis of urine for red blood cells (RBC) 0-5 SEEN /hpf 0-5 [facility] Monocyte percentageOrdered B y: Link Herrmann on 10-19-2024 Monocytes/100 WBC (Bld) 7.0 % 0-10 [facility] Mucus LM Ql (Urine sed)Order ed By: Link Herrmann on 10-19-2024 Mucus Ql (Urine sed) 0 SEEN /hpf [facility] Neutrophil percentageOrdered By: Link Herrmann on 10-19-2024 Neutrophils/100 WBC (Bld) 84.7 % High 47-70 [facility] Nitrite Test strip Ql (U)Ord ered By: Link Herrmann on 10-19-2024 Nitrite Ql (U) Negative Negative [facility] Nucleated red blood cell per centageOrdered By: Link Herrmann on 10-19-2024 Nucleated RBC/100 WBC (Bld) [Ratio] 0.1 % 0-5 [facility] Platelet countOrdered By: Mandeep Herrmann on 10-19-2024 Platelets (Bld) [#/Vol] 430 10*3/uL 150-450 [facility] Potassium measurement (mass/ volume)Ordered By: Link Herrmann on 10-19-2024 Potassium (Unsp spec) [Mass/Vol] 5.1 mmol/L 3.3-5.1 [facility] Comment on above: Hemolysis present, R esults could be affected. Protein Test strip Ql (U)Ord ered By: Link Herrmann on 10-19-2024 Protein Ql (U) 100 mg/dl High Negative [facility] Prothrombin timeOrdered By: Link Herrmann on 10-19-2024 PT Coag (PPP) [Time] 14.1 s 11.7-14.9 [facility] RBC Auto (Bld) [#/Vol]Ordere d By: Link Herrmann on 10-19-2024 RBC (Bld) [#/Vol] 4.24 10*6/uL 4.2-5.4 [facility] Serum creatinine measurement (mass/volume)Ordered By: Link Herrmann on 10-19-2024 Creatinine [Mass/Vol] 1.57 mg/dL High 0.70-1.20 [facility] Serum globulin measurementOr dered By: Link Herrmann on 10-19-2024 Globulin (S) [Mass/Vol] 3.8 g/dL 2.2-4.2 [facility] Serum glucose measurement (m ass/volume)Ordered By: Link Herrmann on 10-19-2024 Glucose [Mass/Vol] 171 mg/dL High 70-99 [facility] Serum or plasma alanine frank otransferase (ALT) measurementOrdered By: Link Herrmann on 10-19-2024 ALT [Catalytic activity/Vol] 13 U/L <35 [facility] Comment on above: Hemolysis present, R esults could be affected. Serum or plasma albumin brianne urement (mass/volume)Ordered By: Link Herrmann on 10-19-2024 Albumin [Mass/Vol] 3.5 g/dL 3.5-5.0 [facility] Serum or plasma albumin/glob ulin mass ratioOrdered By: Link Herrmann on 10-19-2024 Albumin/Globulin [Mass ratio] 0.9 {ratio} 0.9-2.4 [facility] Serum or plasma alkaline mic sphatase measurementOrdered By: Link Herrmann on 10-19-2024 ALP [Catalytic activity/Vol] 150 U/L High 35-104 [facility] Serum or plasma calcium brianne urement (mass/volume)Ordered By: Link Herrmann on 10-19-2024 Calcium [Mass/Vol] 9.3 mg/dL 7.6-11.0 [facility] Serum or plasma urea nitroge n measurement (mass/volume)Ordered By: Link Herrmann on 10-19-2024 Urea nitrogen [Mass/Vol] 12 mg/dL 4-19 [facility] Sodium levelOrdered By: Link Herrmann on 10-19-2024 Sodium [Moles/Vol] 132 mmol/L Low 133-145 [facility] Squamous epithelial cells de tection in urine sediment by light microscopyOrdered By: Link Herrmann on 10-19-2024 Epithelial cells.squamous LM Ql (Urine sed) 0-5 SEEN /hpf 5-10 [facility] Total proteinOrdered By: Kahlil Herrmann on 10-19-2024 Protein [Mass/Vol] 7.3 g/dL 5.9-8.4 [facility] Urine clarityOrdered By: Kahlil Herrmann on 10-19-2024 Clarity (U) Sl. Cloudy Clear [facility] Urine coarse granular cast d etectionOrdered By: Link Herrmann on 10-19-2024 Coarse Granular Casts LM Ql (Urine sed) 0 SEEN /lpf 0-5 /lpf [facility] Urine color determinationOrd ered By: Link Herrmann on 10-19-2024 Color (U) Yellow Yellow [facility] Urine glucose detectionOrder ed By: Link Herrmann on 10-19-2024 Glucose Ql (U) Normal mg/dl Normal [facility] Urine leukocyte esterase det ection by dipstickOrdered By: Link Herrmann on 10-19-2024 Leukocyte esterase Test strip Ql (U) Negative Negative [facility] Urine pHOrdered By: Link luciano on 10-19-2024 pH (U) 5.0 [pH] 5.0 - 8.0 [facility] Urine sediment bacteria coun t by microscopy (number/high power field)Ordered By: Link Herrmann on 10-19-2024 Bacteria LM.HPF (Urine sed) [#/Area] 2 /[HPF] None Seen [facility] Urine sediment fine granular cast count by microscopy (number/low power field)Ordered By: Link Herrmann on 10-19-2024 Fine Granular Casts LM.LPF (Urine sed) [#/Area] > 100 SEEN /lpf 0-5 [facility] Urine specific gravity measu rementOrdered By: Link Herrmann on 10-19-2024 Specific gravity (U) [Rel density] 1.020 1.002-1.030 [facility] Urine urobilinogen measureme ntOrdered By: Link Herrmann on 10-19-2024 Urobilinogen Ql (U) Normal mg/dl Normal [facility] White blood cell (WBC) count Ordered By: Link Herrmann on 10-19-2024 WBC (Bld) [#/Vol] 27.8 10*3/uL High 4.4-11.0 [facility] White blood cell countOrdere d By: Link Herrmann on 10-19-2024 White blood cell count 0-5 SEEN /hpf 0-5 [facility] BI MAMMO BILATERAL SCREENING TOMOSYNTHESISon 10-09-2024 BI MAMMO BILATERAL SCREENING TOMOSYNTHESIS Interpreted By: Aranza Carter and Shah Love STUDY: BI MAMMO BILATERAL SCREENING TOMOSYNTHESIS; 10/09/2024 10:11 am ACCESSION NUMBER(S): [id number] ORDERING CLINICIAN: GISELLE BOYKIN INDICATION: Screening. COMPARISON: [...] any future breast imaging appointments, please call [phone]). MACRO: None Signed by: Aranza Carter 10/10/2024 3:41 PM Dictation workstation: [id number] [facility] BASIC METABOLIC PANEL WITH A NION GAPon 08-20-2024 Calcium [Mass/Vol] 9.5 mg/dL Normal 8.6-10.4 [facility] Comment on above: Order Comment: FASTI NG:YES FASTING: YES Performed By: #### 6 399, 07193 #### [facility] [address], [address] [place], [place] [id number] Legislative Analyst: Giovanni Rubio MD Chloride [Moles/Vol] 102 mmol/L Normal 98-110 [facility] Comment on above: Order Comment: FASTI NG:YES FASTING: YES Performed By: #### 6 399, 39265 #### [facility] [address], [address] [place], [place] [address] Legislative Analyst: Giovanni Rubio MD CO2 [Moles/Vol] 25 mmol/L Normal 20-32 [facility] Comment on above: Order Comment: FASTI NG:YES FASTING: YES Performed By: #### 6 399, 07124 #### [facility] [address], [address] [place] [address] Legislative Analyst: Giovanni Rubio MD Creatinine [Mass/Vol] 1.12 mg/dL High 0.50-1.03 [facility] Comment on above: Order Comment: FASTI NG:YES FASTING: YES Performed By: #### 6 399, 62349 #### [facility] [place] [address] Legislative Analyst: Giovanni Rbuio MD ELECTROLYTE BALANCE 11 mmol/L (calc) Normal 7-17 [facility] Comment on above: Order Comment: FASTI NG:YES FASTING: YES Performed By: #### 6 399, 30294 #### [facility] [place] [address] Legislative Analyst: Giovanni Rubio MD GFR/1.73 sq M.predicted among non-blacks MDRD (S/P/Bld) [Vol rate/Area] 59 mL/min/{1.73_m2} Low > OR = 60 [facility] Comment on above: Order Comment: FASTI NG:YES FASTING: YES Performed By: #### 6 399, 25512 #### [facility] [place] [address] Legislative Analyst: Giovanni Rubio MD Glucose [Mass/Vol] 81 mg/dL Normal 65-99 [facility] Comment on above: Order Comment: FASTI NG:YES FASTING: YES Result Comment: Fasting reference interval Performed By: #### 6 399, 08441 #### [facility] [place] [address] Legislative Analyst: Giovanni Rubio MD Potassium [Moles/Vol] 5.2 mmol/L Normal 3.5-5.3 [facility] Comment on above: Order Comment: FASTI NG:YES FASTING: YES Performed By: #### 6 399, 72547 #### [facility] [place] [address] Legislative Analyst: Giovanni Rubio MD Sodium [Moles/Vol] 138 mmol/L Normal 135-146 [facility] Comment on above: Order Comment: FASTI NG:YES FASTING: YES Performed By: #### 6 399, 39533 #### [facility] [place] [address] Legislative Analyst: Giovanni Rubio MD Urea nitrogen [Mass/Vol] 14 mg/dL Normal 7-25 [facility] Comment on above: Order Comment: FASTI NG:YES FASTING: YES Performed By: #### 6 399, 25148 #### [facility] [place] [address] Legislative Analyst: Giovanni Rubio MD Urea nitrogen/Creatinine [Mass ratio] 13 mg/mg Normal 6-22 [facility] Comment on above: Order Comment: FASTI NG:YES FASTING: YES Performed By: #### 6 399, 23863 #### [facility] [place] [address] Legislative Analyst: Giovanni Rubio MD CBC (INCLUDES DIFF/PLT)on Basophils (Bld) [#/Vol] 0.17 10*3/uL Normal 0-200 [facility] Comment on above: Performed By: #### 6 399, 95902 #### [facility] [place] [address] Legislative Analyst: Giovanni Rubio MD Basophils/100 WBC (Bld) 1.7 % Normal [facility] Comment on above: Performed By: #### 6 399, 13147 #### [facility] [place] [address] Legislative Analyst: Giovanni Rubio MD Eosinophils (Bld) [#/Vol] 0.55 10*3/uL High 15-500 [facility] Comment on above: Performed By: #### 6 399, 19081 #### [facility] [place] [address] Legislative Analyst: Giovanni Rubio MD Eosinophils/100 WBC (Bld) 5.5 % Normal [facility] Comment on above: Performed By: #### 6 399, 09491 #### [facility] of [address], [address] [place] [address] Legislative Analyst: Giovanni Rubio MD Erythrocyte distribution width (RBC) [Ratio] 14.7 % Normal 11.0-15.0 [facility] Comment on above: Performed By: #### 6 399, 48478 #### [facility] of [address], [address] [place] [address] Legislative Analyst: Giovanni Rubio MD Hematocrit (Bld) [Volume fraction] 42.6 % Normal 35.0-45.0 [facility] Comment on above: Performed By: #### 6 399, 41378 #### [facility] of [address], [address] [place] [address] Legislative Analyst: Giovanni Rubio MD Hemoglobin (Bld) [Mass/Vol] 13.5 g/dL Normal 11.7-15.5 [facility] Comment on above: Performed By: #### 6 399, 66570 #### [facility] of [address], [address] [place] [address] Legislative Analyst: Giovanni Rubio MD Lymphocytes (Bld) [#/Vol] 2.28 10*3/uL Normal 850-3900 [facility] Comment on above: Performed By: #### 6 399, 19728 #### [facility] of [address], [address] [place] [address] Legislative Analyst: Giovanni Rubio MD Lymphocytes/100 WBC (Bld) 22.8 % Normal [facility] Comment on above: Performed By: #### 6 399, 97871 #### [facility] of [address], [address] [place] [address] Legislative Analyst: Giovanni Rubio MD MCH (RBC) [Entitic mass] 29.3 pg Normal 27.0-33.0 [facility] Comment on above: Performed By: #### 6 399, 15684 #### [facility] [place] [address] Legislative Analyst: Giovanni Rubio MD MCHC (RBC) [Mass/Vol] 31.7 g/dL Low 32.0-36.[address] [facility] Comment on above: Result Comment: For adults, a slight decrease in the calculated MCHC value (in the range of 30 to 32 g/dL) is most likely not clinically significant; however, it should be interpreted with caution in correlation with other red cell parameters and the patient's clinical condition. Performed By: #### 6 399, 66445 #### [facility] [place] [address] Legislative Analyst: Giovanni Rubio MD MCV (RBC) [Entitic vol] 92.6 fL Normal 80.0-100.0 [facility] Comment on above: Performed By: #### 6 399, 23575 #### [facility] [place] [address] Legislative Analyst: Giovanni Rubio MD Monocytes (Bld) [#/Vol] 0.89 10*3/uL Normal 200-950 [facility] Comment on above: Performed By: #### 6 399, 79907 #### [facility] [place] [address] Legislative Analyst: Giovanni Rubio MD Monocytes/100 WBC (Bld) 8.9 % Normal [facility] Comment on above: Performed By: #### 6 399, 31642 #### [facility] [place] [address] Legislative Analyst: Giovanni Rubio MD Neutrophils (Bld) [#/Vol] 6.11 10*3/uL Normal 3421-3772 [facility] Comment on above: Performed By: #### 6 399, 89756 #### [facility] [place] [address] Legislative Analyst: Giovanni Rubio MD Neutrophils/100 WBC (Bld) 61.1 % Normal [facility] Comment on above: Performed By: #### 6 399, 55318 #### [facility] [address] [place] [address] Legislative Analyst: Giovanni Ruibo MD Platelet mean volume (Bld) [Entitic vol] 10.7 fL Normal 7.5-12.5 [facility] Comment on above: Performed By: #### 6 399, 81271 #### [facility] [place] [address] Legislative Analyst: Giovanni Rubio MD Platelets (Bld) [#/Vol] 481 10*3/uL High 140-400 [facility] Comment on above: Performed By: #### 6 399, 49046 #### [facility] [place] [address] Legislative Analyst: Giovanni Rubio MD RBC (Bld) [#/Vol] 4.60 10*6/uL Normal 3.80-5.10 [facility] Comment on above: Performed By: #### 6 399, 65301 #### [facility] [place] [address] Legislative Analyst: Giovanni Rubio MD WBC (Bld) [#/Vol] 10.0 10*3/uL Normal 3.8-10.8 [facility] Comment on above: Performed By: #### 6 399, 43962 #### [facility] [place] [address] Legislative Analyst: Giovanni Rubio MD HEMOGLOBIN A1c WITH eAGon eAG (mmol/L) 7.0 mmol/L Normal [facility] Comment on above: Performed By: #### 6 399, 25840 #### [facility] [place] [address] Legislative Analyst: Giovanni Rubio MD HbA1c (Bld) [Mass fraction] [...] for children. Performed By: #### 6 399, 59237 #### [facility] [address] [place] [address], [address] [place] [address] Legislative Analyst: Giovanni Rubio MD Magnesium [Mass/Vol] 126 mg/dL Normal [facility] Comment on above: Performed By: #### 6 399, 71046 #### [facility] [address], [address] Legislative Analyst: Giovanni Rubio MD ANTI DNAon 05-12-2024 ANTI-DNA Negative Normal [facility] Comment on above: Result Comment: This test is a screen, if positive refer to the quantitative test. Performed By: #### 1 42260 #### [facility] [address] [place], [place] [id number] Legislative Analyst: Manjinder Butler MD COMP C3on 05-09-2024 Complement C3 138 mg/dL Normal 90-180 [facility] Comment on above: Result Comment: REFE RENCE INTERVAL: Complement Component 3 Access complete set of age- and/or gender-specific reference intervals for this test in the [employer] [facility] Test Directory ([employer]). Performed By: [facility] [address] [place] [address] Environment Artist: Yair Gallego MD, PhD CLIA Number: [id number] Performed By: #### 1 68808, [id number] #### [facility] [address] [place], [place] [id number] Legislative Analyst: Manjinder Butler MD COMP C4on 05-09-2024 Complement C4 46 mg/dL High 10-40 [facility] Comment on above: Result Comment: REFE RENCE INTERVAL: Complement Component 4 Access complete set of age- and/or gender-specific reference intervals for this test in the [employer] [facility] Test Directory ([employer]). Performed By: [facility] [address] [place] [address] Environment Artist: Yair Gallego MD, PhD CLIA Number: [id number] Performed By: #### 1 30394, 975796 #### [facility] [address] [place] [address] Legislative Analyst: Manjinder Butler MD ALBUMIN, RANDOM URINE W/CREA TININEon 05-08-2024 ALBUMIN, URINE <0.2 Normal See Note: [facility] Comment on above: Result Comment: Refe rence Range: Reference Range Not established Performed By: #### 6 517 #### [facility] [address], [address] [place] [address] Legislative Analyst: Giovanni Rubio MD ALBUMIN/CREATININE RATIO, RANDOM URINE [...] By: #### 6 517 #### [facility] [address], [address] [place] [address] Legislative Analyst: Giovanni Rubio MD Creatinine (U) [Mass/Vol] 143 mg/dL Normal 20-275 [facility] Comment on above: Performed By: #### 6 517 #### [facility] [address], [address] [place], [place] [id number] Legislative Analyst: Giovanni Rubio MD CRP QUANTon 05-07-2024 C-Reactive Protein, Quantitative <0.5 Normal 0.0-0.5 [facility] Comment on above: Result Comment: ?- C RP testing for cardiovascular risk assessment should not be performed while there is an indication of active infection, systemic inflammation, or trauma. Performed By: #### 6 [id number], [id number] #### [facility] [address] [place] [address] Legislative Analyst: Manjinder Butler MD POCT glycosylated hemoglobin (Hb A1C) manually resultedon 05-07-2024 HbA1c (Bld) [Mass fraction] 6.3 % 4.2 - 6.5 % [facility] Work Phone: [facility] Work Phone: SED RATEon 05-07-2024 Sed Rate Westergren 28 mm/hr Normal 0-30 [facility] Comment on above: Performed By: #### 6 256370, [id number] #### [facility] [address] [place] [address] Legislative Analyst: Manjinder Butler MD CBC (INCLUDES DIFF/PLT)on Basophils (Bld) [#/Vol] 0.156 10*3/uL Normal 0-200 [facility] Comment on above: Performed By: #### 9 2665, 32959, 6399, 7600 #### [facility] [address], [address] [place] [address] Legislative Analyst: Giovanni Rubio MD Basophils/100 WBC (Bld) 1.1 % Normal [facility] Comment on above: Performed By: #### 9 2665, 26230, 6399, 7600 #### [facility] [place] [address] Legislative Analyst: Giovanni Rubio MD COMMENT(S) Normal [facility] Comment on above: Result Comment: Revi ew of peripheral smear confirms automated results. Performed By: #### 9 2665, 94213, 6399, 7600 #### [facility] [place] [address] Legislative Analyst: Giovanni Rubio MD Eosinophils (Bld) [#/Vol] 0.227 10*3/uL Normal 15-500 [facility] Comment on above: Performed By: #### 9 2665, 32498, 6399, 7600 #### [facility] of [address], [address] [place] [address] Legislative Analyst: iGovanni Rubio MD Eosinophils/100 WBC (Bld) 1.6 % Normal [facility] Comment on above: Performed By: #### 9 2665, 65139, 6399, 7600 #### [facility] of [address], [address] [place] [address] Legislative Analyst: Giovanni Rubio MD Erythrocyte distribution width (RBC) [Ratio] 13.5 % Normal 11.0-15.0 [facility] Comment on above: Performed By: #### 9 2665, 34707, 6399, 7600 #### [facility] [place] [address] Legislative Analyst: Giovanni Rubio MD Hematocrit (Bld) [Volume fraction] 40.5 % Normal 35.0-45.0 [facility] Comment on above: Performed By: #### 9 2665, 72100, 6399, 7600 #### [facility] [place] [address] Legislative Analyst: Giovanni Rubio MD Hemoglobin (Bld) [Mass/Vol] 13.4 g/dL Normal 11.7-15.5 [facility] Comment on above: Performed By: #### 9 2665, 42939, 6399, 7600 #### [facility] [place] [address] Legislative Analyst: Giovanni Rubio MD Lymphocytes (Bld) [#/Vol] 3.649 10*3/uL Normal 850-3900 [facility] Comment on above: Performed By: #### 9 2665, 91521, 6399, 7600 #### [facility] [place] [address] Legislative Analyst: Giovanni Rubio MD Lymphocytes/100 WBC (Bld) 25.7 % Normal [facility] Comment on above: Performed By: #### 9 2665, 02579, 6399, 7600 #### [facility] [place] [address] Legislative Analyst: Giovanni Rubio MD MCH (RBC) [Entitic mass] 29.1 pg Normal 27.0-33.0 [facility] Comment on above: Performed By: #### 9 2665, 27862, 6399, 7600 #### [facility] [place] [address] Legislative Analyst: Giovanni Rubio MD MCHC (RBC) [Mass/Vol] 33.1 g/dL Normal 32.0-36.[address] [facility] Comment on above: Result Comment: For adults, a slight decrease in the calculated MCHC value (in the range of 30 to 32 g/dL) is most likely not clinically significant; however, it should be interpreted with caution in correlation with other red cell parameters and the patient's clinical condition. Performed By: #### 9 170, 96038, 6399, 7600 #### [facility] [place] [address] Legislative Analyst: Giovanni Rubio MD MCV (RBC) [Entitic vol] 87.9 fL Normal 80.0-100.0 [facility] Comment on above: Performed By: #### 9 894, 33001, 6399, 7600 #### [facility] [place] [address] Legislative Analyst: Giovanni Rubio MD Monocytes (Bld) [#/Vol] 1.448 10*3/uL High 200-950 [facility] Comment on above: Performed By: #### 9 266, 04412, 6399, 7600 #### [facility] [place] [address] Legislative Analyst: Giovanni Rubio MD Monocytes/100 WBC (Bld) 10.2 % Normal [facility] Comment on above: Performed By: #### 9 266, 41747, 6399, 7600 #### [facility] [place] [address] Legislative Analyst: Giovanni Rubio MD Neutrophils (Bld) [#/Vol] 8.719 10*3/uL High 6734-2708 [facility] Comment on above: Performed By: #### 9 2665, 96351, 6399, 7600 #### [facility] [address], [address] [place] [address] Legislative Analyst: Giovanni Rubio MD Neutrophils/100 WBC (Bld) 61.4 % Normal [facility] Comment on above: Performed By: #### 9 2665, 74327, 6399, 7600 #### [facility] [address], [address] [place] [address] Legislative Analyst: Giovanni Rubio MD Platelet mean volume (Bld) [Entitic vol] 9.2 fL Normal 7.5-12.5 [facility] Comment on above: Performed By: #### 9 2665, 17085, 6399, 7600 #### [facility] [address], [address] [place] [address] Legislative Analyst: Giovanni Rubio MD Platelets (Bld) [#/Vol] 663 10*3/uL High 140-400 [facility] Comment on above: Performed By: #### 9 2665, 26613, 6399, 7600 #### [facility] [address], [address] [place] [address] Legislative Analyst: Giovanni Rubio MD RBC (Bld) [#/Vol] 4.61 10*6/uL Normal 3.80-5.10 [facility] Comment on above: Performed By: #### 9 2665, 19451, 6399, 7600 #### [facility] [address], [address] [place] [address] Legislative Analyst: Giovanni Rubio MD WBC (Bld) [#/Vol] 14.2 10*3/uL High 3.8-10.8 [facility] Comment on above: Performed By: #### 9 2665, 01885, 6399, 7600 #### [facility] [address], [address] [place] [address] Legislative Analyst: Giovanni Rubio MD COMPREHENSIVE METABOLIC PANE L W/ANION GAPon 05-06-2024 Albumin [Mass/Vol] 3.9 g/dL Normal 3.6-5.1 [facility] Comment on above: Performed By: #### 9 2665, 80962, 6399, 7600 #### [facility] [address], [address] [place] [address] Legislative Analyst: Giovanni Rubio MD ALP [Catalytic activity/Vol] 116 U/L Normal 37-153 [facility] Comment on above: Performed By: #### 9 2665, 83442, 6399, 7600 #### [facility] [address], [address] [place] [address] Legislative Analyst: Giovanni Rubio MD ALT [Catalytic activity/Vol] 9 U/L Normal 6-29 [facility] Comment on above: Performed By: #### 9 2665, 78823, 6399, 7600 #### [facility] [address], [address] [place] [address] Legislative Analyst: Giovanni Rubio MD AST [Catalytic activity/Vol] 15 U/L Normal 10-35 [facility] Comment on above: Performed By: #### 9 2665, 58773, 6399, 7600 #### [facility] [place] [address] Legislative Analyst: Giovanni Rubio MD Bilirubin [Mass/Vol] 0.5 mg/dL Normal 0.2-1.2 [facility] Comment on above: Performed By: #### 9 2665, 02427, 6399, 7600 #### [facility] [address], [address] [place] [address] Legislative Analyst: Giovanni Rubio MD Calcium [Mass/Vol] 9.4 mg/dL Normal 8.6-10.4 [facility] Comment on above: Performed By: #### 9 2665, 46478, 6399, 7600 #### [facility] [address], [address] [place] [address] Legislative Analyst: Giovanni Rubio MD Chloride [Moles/Vol] 97 mmol/L Low 98-110 [facility] Comment on above: Performed By: #### 9 5925, 03553, 6399, 7600 #### [facility] [address], [address] [place] [address] Legislative Analyst: Giovanni Rubio MD CO2 [Moles/Vol] 26 mmol/L Normal 20-32 [facility] Comment on above: Performed By: #### 9 1675, 65695, 6399, 7600 #### [facility] [place] [address] Legislative Analyst: Giovanni Rubio MD Creatinine [Mass/Vol] 1.59 mg/dL High 0.50-1.[address] [facility] Comment on above: Performed By: #### 9 7645, 60101, 6399, 7600 #### [facility] [address], [address] [place] [address] Legislative Analyst: Giovanni Rubio MD ELECTROLYTE BALANCE 11 mmol/L (calc) Normal 7-17 [facility] Comment on above: Performed By: #### 9 5735, 48358, 6399, 7600 #### [facility] [place] [address] Legislative Analyst: Giovanni Rubio MD GFR/1.73 sq M.predicted among non-blacks MDRD (S/P/Bld) [Vol rate/Area] 39 mL/min/{1.73_m2} Low > OR = 60 [facility] Comment on above: Performed By: #### 9 5, 52447, 6399, 7600 #### [facility] [place] [address] Legislative Analyst: Giovanni Rubio MD Glucose [Mass/Vol] 98 mg/dL Normal 65-99 [facility] Comment on above: Result Comment: Fasting reference interval Performed By: #### 9 4355, 83464, 6399, 7600 #### [facility] of [address] [place] [address] Legislative Analyst: Giovanni Rubio MD Potassium [Moles/Vol] 5.2 mmol/L Normal 3.5-5.[address] [facility] Comment on above: Performed By: #### 9 2665, 53258, 6399, 7600 #### [facility] [address], [address] [place] [address] Legislative Analyst: Giovanni Rubio MD Protein [Mass/Vol] 6.5 g/dL Normal 6.1-8.1 [facility] Comment on above: Performed By: #### 9 2665, 54642, 6399, 7600 #### [facility] [place] [address] Legislative Analyst: Giovanni Rubio MD Sodium [Moles/Vol] 134 mmol/L Low 135-146 [facility] Comment on above: Performed By: #### 9 2665, 58989, 6399, 7600 #### [facility] [place] [address] Legislative Analyst: Giovanni Rubio MD Urea nitrogen [Mass/Vol] 26 mg/dL High 7-25 [facility] Comment on above: Performed By: #### 9 2665, 49994, 6399, 7600 #### [facility] [place] [address] Legislative Analyst: Giovanni Rubio MD HEMOGLOBIN A1c WITH eAGon eAG (mmol/L) 8.2 mmol/L Normal [facility] Comment on above: Performed By: #### 9 2665, 13608, 6399, 7600 #### [facility] [place] [address] Legislative Analyst: Giovanni Rubio MD HEMOGLOBIN A1c 6.8 % [...] for children. Performed By: #### 9 2665, 16675, 6399, 7600 #### [facility] [address], [address] [place] [address] Legislative Analyst: Giovanni Rubio MD Magnesium [Mass/Vol] 148 mg/dL Normal [facility] Comment on above: Performed By: #### 9 2665, 21874, 6399, 7600 #### [facility] [address], [address] [place] [address] Legislative Analyst: Giovanni Rubio MD LIPID PANEL, [facility] 0 Cholesterol [Mass/Vol] 127 mg/dL Normal <200 [facility] Comment on above: Order Comment: FASTI NG:YES FASTING: YES Performed By: #### 9 9315, 14535, 6399, 7600 #### [facility] [address], [address] [place] [address] Legislative Analyst: Giovanni Rubio MD Cholesterol in HDL [Mass/Vol] 47 mg/dL Low > OR = 50 [facility] Comment on above: Order Comment: FASTI NG:YES FASTING: YES Performed By: #### 9 6875, 17994, 6399, 7600 #### [facility] [address], [address] [place] [address] Legislative Analyst: Giovanni Rubio MD Cholesterol in LDL [Mass/Vol] 57 mg/dL Normal [facility] Comment on above: Order Comment: FASTI NG:YES FASTING: YES Result Comment: Refe rence range: <100 Desirable range <100 mg/dL for primary prevention; <70 mg/dL for patients with CHD or diabetic patients with > or = 2 CHD risk factors. LDL-C is now calculated using the Lanie calculation, which is a validated novel method providing better accuracy than the Friedewald equation in the estimation of LDL-C. Manjinder LONDON et al. RICK. 2013;310(19): 0310-6827 (http://education.Babybe.[employer]/faq/GJI179) Performed By: #### 9 2665, 66651, 6399, 7600 #### [facility] [address], [address] [place] [address] Legislative Analyst: Giovanni Rubio MD Cholesterol.total/Chol esterol in HDL [Mass ratio] 2.7 {ratio} Normal <5.0 [facility] Comment on above: Order Comment: FASTI NG:YES FASTING: YES Performed By: #### 9 2665, 84549, 6399, 7600 #### [facility] [address], [address] [place] [address] Legislative Analyst: Giovanni Rubio MD NON HDL CHOLESTEROL 80 mg/dL (calc) Normal <130 [facility] Comment on above: Order Comment: FASTI NG:YES FASTING: YES Result Comment: For patients with diabetes plus 1 major ASCVD risk factor, treating to a non-HDL-C goal of <100 mg/dL (LDL-C of <70 mg/dL) is considered a therapeutic option. Performed By: #### 9 2665, 08244, 6399, 7600 #### [facility] [place] [address] Legislative Analyst: Giovanni Rubio MD Triglyceride [Mass/Vol] 151 mg/dL High <150 [facility] Comment on above: Order Comment: FASTI NG:YES FASTING: YES Performed By: #### 9 2665, 60596, 6399, 7600 #### [facility] [address], [address] [place] [address] Legislative Analyst: Giovanni Oakley 04-29-2024 CNOV Office Visit ([facility] ) -------- CHINA ORTIZ ([id number]) 1970 F Date Time Provider Department 04/29/24 1:55 PM [facility] [facility] During your visit today, we recorded the following information about you: Temperature Pulse Respiration Blood pressure 98.6 degrees 95/minute 18/minute 112/80 Weight 90.7 kg Stephanie Wilder APRN.[employer] 04/29/2024 3:35 PM Signed China Ortiz is [...] or uvula swelling (more content not included)... [facility] XR CHEST 2V FRONTAL/LATon XR CHEST 2V [...] the right hemidiaphragm. IMPRESSION: No acute abnormalities. Health Information Management Director: PSCB Transcribe Date/Time: Apr 30 2024 8:44A Dictated by : WERNER KENNEDY MD This examination was interpreted and the report reviewed and electronically signed by: WERNER KENNEDY MD on Apr 30 2024 8:45AM EST [id number] [facility] Urgent Care Visit Reporton [address] [facility] [address], [address] [place] [address] OFFICE VISIT Date of Service: 01/29/24 MR#: [id number] Acct: [id number] Name: CHINA ORTIZ Rep #: [id number] : 1970 Provider: PREMA Munoz Age/Sex: 53/F Location: [facility] [place] Status: Signed Intake Intake Visit Reasons: PRE EMP/NON DOT/PHYSICAL/[facility] Medical History (Updated 01/29/24 @ 13:01 by Mo LLOYD, PREMA) Physical exam, pre-employment HPI HPI Details: CHINA ORTIZ, is a 53 F who presents to the office today for Office Procedures Physical Exam Coding PE Coding Pre-employment PE: Yes Coding Level of Care Code No Charge Diagnoses Physical exam, pre-employment Z02.1 Assessment and Plan Assessment and Plan (1) Physical exam, pre-employment: Status: Acute 01/29/24 1301 Date Mo Portillo Signature: Date (if applicable) CC: Normal [facility] .Auto Diffon 11-14-2023 Basophil, Absolute 0.1 10 3/mcL Normal 0.0-0.3 [facility] ([place]) Comment on above: Performed By: #### T CHICO, DIMER, TSHR, A1C, LIPID #### [address] [address] Basophils/100 WBC (Bld) 0.6 % Normal 0.0-2.5 [facility] ([place]) Comment on above: Performed By: #### T CHICO, DIMER, TSHR, A1C, LIPID #### [address] [address] Eosinophil, Absolute 0.0 10 3/mcL Normal 0.0-0.7 [facility] ([place]) Comment on above: Performed By: #### T CHICO, DIMER, TSHR, A1C, LIPID #### [address] [address] Eosinophils/100 WBC (Bld) 0.2 % Normal 0.0-6.0 [facility] ([place]) Comment on above: Performed By: #### T CHICO, DIMER, TSHR, A1C, LIPID #### [address] [address] Lymphocyte, Absolute 3.6 10 3/mcL Normal 0.9-4.3 [facility] ([place]) Comment on above: Performed By: #### T ROPHS, DIMER, TSHR, A1C, LIPID #### [address] [address] Lymphocytes/100 WBC (Bld) 19.6 % Low 20.0-40.0 [facility] ([place]) Comment on above: Performed By: #### T ROPHS, DIMER, TSHR, A1C, LIPID #### [address] [address] Monocyte, Absolute 1.3 10 3/mcL Normal 0.1-1.4 [facility] ([place]) Comment on above: Performed By: #### T ROPHS, DIMER, TSHR, A1C, LIPID #### [address] [address] Monocytes/100 WBC (Bld) 7.2 % Normal 2.0-13.0 [facility] ([place]) Comment on above: Performed By: #### T ROPHS, DIMER, TSHR, A1C, LIPID #### [address] [address] Neutrophils/100 WBC (Bld) 72.4 % Normal 50.0-75.0 [facility] ([place]) Comment on above: Performed By: #### T ROPHS, DIMER, TSHR, A1C, LIPID #### [address] [address] .GFRon 11-14-2023 GFR >60 Normal [facility] ([place]) Comment on above: Result Comment: GFR Population [...] T ROPHS, DIMER, TSHR, A1C, LIPID #### [place] [id number] GFR Non- >60 Normal [facility] ([place]) Comment on above: Result Comment: GFR Population [...] T ROPHS, DIMER, TSHR, A1C, LIPID #### [place] [address] .MDWon 11-14-2023 Monocyte Distribution Width 17.46 Normal 0.00-20.00 [facility] ([place]) Comment on above: Result Comment: For ED adult patients suspected of sepsis, MDW<=20.0 does not rule out sepsis or risk of sepsis Performed By: #### T ROPHS, DIMER, TSHR, A1C, LIPID #### [place] [address] .NEUABSon 11-14-2023 Neutrophil, Absolute 13.3 10 3/mcL High 2.3-8.1 A [facility] ([place]) Comment on above: Performed By: #### T ROPHS, DIMER, TSHR, A1C, LIPID #### [place] [id number] CBCon 11-14-2023 Erythrocyte distribution width (RBC) [Ratio] 14.3 % Normal 11.5-15.5 [facility] ([place]) Comment on above: Performed By: #### T ROPHS, DIMER, TSHR, A1C, LIPID #### [place] [address] Hematocrit (Bld) [Volume fraction] 42.3 % Normal 34.0-46.0 [facility] ([place]) Comment on above: Performed By: #### T ROPHS, DIMER, TSHR, A1C, LIPID #### [place] [address] Hgb 14.2 G/dL Normal 12.0-16.0 [facility] ([place]) Comment on above: Performed By: #### T ROPHS, DIMER, TSHR, A1C, LIPID #### [place] [address] MCH (RBC) [Entitic mass] 30.1 pg Normal 27.0-33.0 [facility] ([place]) Comment on above: Performed By: #### T ROPHS, DIMER, TSHR, A1C, LIPID #### [place] [address] MCHC 33.7 G/dL Normal 32.0-36.0 [facility] ([place]) Comment on above: Performed By: #### T ROPHS, DIMER, TSHR, A1C, LIPID #### [place] [address] MCV (RBC) [Entitic vol] 89.3 fL Normal 80.0-99.0 [facility] ([place]) Comment on above: Performed By: #### T ROPHS, DIMER, TSHR, A1C, LIPID #### [place] [address] Platelet 431 10 3/mcL Normal 150-450 [facility] ([place]) Comment on above: Performed By: #### T ROPHS, DIMER, TSHR, A1C, LIPID #### [place] [address] Platelet mean volume (Bld) [Entitic vol] 8.7 fL Normal 6.6-10.5 [facility] ([place]) Comment on above: Performed By: #### T ROPHS, DIMER, TSHR, A1C, LIPID #### [place] [address] RBC 4.73 10 6/mcL Normal 4.10-5.30 [facility] ([place]) Comment on above: Performed By: #### T ROPHS, DIMER, TSHR, A1C, LIPID #### [address] [address] WBC 18.4 10 3/mcL High 4.5-10.8 [facility] ([place]) Comment on above: Performed By: #### T ROPHS, DIMER, TSHR, A1C, LIPID #### [address] [address] CMPon 11-14-2023 Albumin Level 3.8 G/dL Normal 3.2-4.8 [facility] ([place]) Comment on above: Performed By: #### T ROPHS, DIMER, TSHR, A1C, LIPID #### [address] [address] Albumin/Globulin [Mass ratio] 1.2 {ratio} Normal 0.9-1.6 [facility] ([place]) Comment on above: Performed By: #### T ROPHS, DIMER, TSHR, A1C, LIPID #### [address] [address] ALP [Catalytic activity/Vol] 107 U/L Normal 38-126 [facility] ([place]) Comment on above: Performed By: #### T ROPHS, DIMER, TSHR, A1C, LIPID #### [address] [address] ALT [Catalytic activity/Vol] 13 U/L Normal 10-49 [facility] ([place]) Comment on above: Performed By: #### T ROPHS, DIMER, TSHR, A1C, LIPID #### [address] [address] AST [Catalytic activity/Vol] 17 U/L Normal 8-34 [facility] ([place]) Comment on above: Performed By: #### T ROPHS, DIMER, TSHR, A1C, LIPID #### [address] [address] Bili Total 0.40 mg/dL Normal 0.20-1.20 [facility] ([place]) Comment on above: Result Comment: Use of this assay is not recommended for patients undergoing treatment with eltrombopag due to the potential for falsely elevated results. Performed By: #### T ROPHS, DIMER, TSHR, A1C, LIPID #### [address] [address] BUN/Creatinine Ratio 17.5 ratio Normal 10.0-22.0 [facility] ([place]) Comment on above: Performed By: #### T RICHHS, DIMER, TSHR, A1C, LIPID #### [address] [address] Calcium [Mass/Vol] 9.6 mg/dL Normal 8.7-10.4 [facility] ([place]) Comment on above: Performed By: #### T ROPHS, DIMER, TSHR, A1C, LIPID #### [place] [phone] Chloride [Moles/Vol] 104 mmol/L Normal 98-110 [facility] ([place]) Comment on above: Performed By: #### T RICHHS, DIMER, TSHR, A1C, LIPID #### [address] [address] CO2 [Moles/Vol] 30 mmol/L Normal 22-32 [facility] ([place]) Comment on above: Performed By: #### T ROPHS, DIMER, TSHR, A1C, LIPID #### [address] [address] Creatinine [Mass/Vol] 0.97 mg/dL Normal 0.50-1.20 [facility] ([place]) Comment on above: Performed By: #### T ROPHS, DIMER, TSHR, A1C, LIPID #### [address] [address] Electrolyte Balance 7.0 mEq/L Normal 4.0-15.0 [facility] ([place]) Comment on above: Performed By: #### T ROPHS, DIMER, TSHR, A1C, LIPID #### [address] [address] Globulin 3.2 G/dL Normal 1.5-3.8 [facility] ([place]) Comment on above: Performed By: #### T ROPHS, DIMER, TSHR, A1C, LIPID #### [address] [address] Glucose [Mass/Vol] 198 mg/dL High 70-110 [facility] ([place]) Comment on above: Performed By: #### T ROPHS, DIMER, TSHR, A1C, LIPID #### [address] [address] Potassium [Moles/Vol] 4.1 mmol/L Normal 3.5-5.0 [facility] ([place]) Comment on above: Performed By: #### T ROPHS, DIMER, TSHR, A1C, LIPID #### [address] [address] Sodium [Moles/Vol] 141 mmol/L Normal 136-145 [facility] ([place]) Comment on above: Performed By: #### T RICHHS, DIMER, TSHR, A1C, LIPID #### [address] [address] Total Protein 7.0 G/dL Normal 5.7-8.2 [facility] ([place]) Comment on above: Result Comment: No te - New Reference Range in effect 19 Performed By: #### T RICHHS, DIMER, TSHR, A1C, LIPID #### [address] [address] Urea nitrogen [Mass/Vol] 17.0 mg/dL Normal 8.0-22.0 [facility] ([place]) Comment on above: Performed By: #### T ROPHS, DIMER, TSHR, A1C, LIPID #### [address] [address] [address] ABD/PELVIS W/ IV CONTRAST ONLYon 11-14-2023 [...] 11/14/2023 9:52:35 PM Ordering Provider: TOMMY BONILLA [facility] ([place]) LABORATORYOrdered By: SYSTEM SYSTEM on 11-14-2023 Albumin [...] Chloride [Moles/Vol] 104 mmol/L Normal 98 - 11 0 mEq/L ADM SS CO2 [Moles/Vol] 30 mmol/L [...] (S/P/Bld) [Vol rate/Area] ml/min/1.73sqm Invalid Interpretation Code [facility] Comment on above: Interpretive Data: GFR Population [...] - 46.0 % Workflow Hemoglobin (Bld) [Mass/Vol] 14.2 G/dL Normal 12.0 - 16.0 G/dL Workflow Lipase [Catalytic activity/Vol] 37 U/L Normal 12 - 53 U/L [facility] Comment on above: Interpretive Data: * *Note [...] 11-14-2023 Lipase Level 37 U/L Normal 12-53 [facility] ([place]) Comment on above: Result Comment: No te - New Reference Range in effect 19 Performed By: #### T ROPHS, DIMER, TSHR, A1C, LIPID #### [address] [address] UAon 11-14-2023 Color (U) Yellow Normal [facility] ([place]) Comment on above: Performed By: #### U A #### [address] [address] Glucose (U) [Mass/Vol] Negative Normal Negative [facility] ([place]) Comment on above: Performed By: #### U A #### [address] [address] Ketones Ql (U) Negative Normal Neg-Trace [facility] ([place]) Comment on above: Performed By: #### U A #### [place] [address] UA Appear Clear Normal Clear [facility] ([place]) Comment on above: Performed By: #### U A #### [place] [address] UA Blood Negative Normal Neg-Trace [facility] ([place]) Comment on above: Performed By: #### U A #### [place] [address] UA Leuk Est Negative Normal Negative [facility] ([place]) Comment on above: Performed By: #### U A #### [place] [address] UA Nitrite Negative Normal Negative [facility] ([place]) Comment on above: Performed By: #### U A #### [place] [address] UA pH 5.0 Normal 5.0 - 8.0 [facility] ([place]) Comment on above: Performed By: #### U A #### [place] [address] UA Protein Trace Normal Negative [facility] ([place]) Comment on above: Performed By: #### U A #### [place] [address] UA Spec Grav 1.020 Normal 1.006-1.029 [facility] ([place]) Comment on above: Performed By: #### U A #### [place] [address] UA Specimen Type Clean Catch Normal [facility] ([place]) Comment on above: Performed By: #### U A #### [place] [address] UA Urobilinogen 0.2 E.U./dL Normal 0.2-1.0 [facility] ([place]) Comment on above: Performed By: #### U A #### [address] [address] Urobilinogen (U) [Mass/Vol] Negative Normal Neg-Trace [facility] ([place]) Comment on above: Performed By: #### U A #### [address] [address] C reactive proteinon 024 CRP [Mass/Vol] 1.35 mg/dL High <1.00 [facility] Comment on above: Performed By: #### 1 988-5 #### GRACIELA Lang ([id number]) [facility] ([facility]) [address] [place] [address] CBC W Auto Differential pane l (Bld)on 11-01-2023 Basophils (Bld) [#/Vol] 0.18 x10*3/uL High 0.00-0.10 [facility] Comment on above: Performed By: #### 5 7021-8 #### GRACIELA RASCON L ([id number]) [facility] ([facility]) [address] [place] [address] Basophils/100 WBC (Bld) 1.5 % Normal 0.0-2.0 [facility] Comment on above: Performed By: #### 5 7021-8 #### GRACIELA TAYLORMORAVI L ([id number]) [facility] ([facility]) [address] [place] [address] Eosinophils (Bld) [#/Vol] 0.79 x10*3/uL High 0.00-0.70 [facility] Comment on above: Performed By: #### 5 7021-8 #### GRACIELA TAYLORMORAVI L ([id number]) [facility] ([facility]) [address] [place] [address] Eosinophils/100 WBC (Bld) 6.4 % Normal 0.0-6.0 [facility] Comment on above: Performed By: #### 5 7021-8 #### GRACIELA TAYLORMORAVI L ([id number]) [facility] ([facility]) [address] [place] [address] Erythrocyte distribution width (RBC) [Ratio] 13.8 % Normal 11.5-14.5 [facility] Comment on above: Performed By: #### 5 7021-8 #### GRACIELA Lang ([id number]) [facility] ([facility]) [address] [place] [address] Hematocrit (Bld) [Volume fraction] 43.6 % Normal 36.0-46.0 [facility] Comment on above: Performed By: #### 5 7021-8 #### GRACIELA Lang ([id number]) [facility] ([facility]) [address] [place] [address] Hemoglobin (Bld) [Mass/Vol] 14.1 g/dL Normal 12.0-16.0 [facility] Comment on above: Performed By: #### 5 7021-8 #### GRACIELA Lang ([id number]) [facility] ([facility]) [address] [place] [address] Immature granulocytes (Bld) [#/Vol] 0.09 x10*3/uL Normal 0.00-0.70 [facility] Comment on above: Performed By: #### 5 7021-8 #### GRACIELA Lang ([id number]) [facility] ([facility]) [address] [place] [address] Immature granulocytes/100 WBC (Bld) 0.7 % Normal 0.0-0.9 [facility] Comment on above: Result Comment: Jahaira ture Granulocyte Count (IG) includes promyelocytes, myelocytes and metamyelocytes but does not include bands. Percent differential counts (%) should be interpreted in the context of the absolute cell counts (cells/UL). Performed By: #### 5 7021-8 #### GRACIELA Lang ([id number]) [facility] ([facility]) [address] [place] [address] Lymphocytes (Bld) [#/Vol] 2.50 x10*3/uL Normal 1.20-4.80 [facility] Comment on above: Performed By: #### 5 7021-8 #### GRACIELA Lang ([id number]) [facility] ([facility]) [address] [place] [address] Lymphocytes/100 WBC (Bld) 20.3 % Normal 13.0-44.0 [facility] Comment on above: Performed By: #### 5 7021-8 #### GRACIELA RASCON L ([id number]) [facility] ([facility]) [address] [place] [address] MCH (RBC) [Entitic mass] 29.3 pg Normal 26.0-34.0 [facility] Comment on above: Performed By: #### 5 7021-8 #### GRACIELA Lang ([id number]) [facility] ([facility]) [address] [place] [address] MCHC (RBC) [Mass/Vol] 32.3 g/dL Normal 32.0-36.0 [facility] Comment on above: Performed By: #### 5 7021-8 #### GRACIELA Lang ([id number]) [facility] ([facility]) [address] [place] [address] MCV (RBC) [Entitic vol] 91 fL Normal 80-100 [facility] Comment on above: Performed By: #### 5 7021-8 #### GRACIELA RASCON L ([id number]) [facility] ([facility]) [address] [place] [address] Monocytes (Bld) [#/Vol] 1.18 x10*3/uL High 0.10-1.00 [facility] Comment on above: Performed By: #### 5 7021-8 #### GRACIELA RASCON L ([id number]) [facility] ([facility]) [address] [place] [address] Monocytes/100 WBC (Bld) 9.6 % Normal 2.0-10.0 [facility] Comment on above: Performed By: #### 5 7021-8 #### GRACIELA Lang ([id number]) [facility] ([facility]) [address] [place] [address] Neutrophils (Bld) [#/Vol] 7.58 x10*3/uL Normal 1.20-7.70 [facility] Comment on above: Result Comment: Perc ent differential counts (%) should be interpreted in the context of the absolute cell counts (cells/uL). Performed By: #### 5 7021-8 #### GRACIELA Lang ([id number]) [facility] ([facility]) [address] [place] [address] Neutrophils/100 WBC (Bld) 61.5 % Normal 40.0-80.0 [facility] Comment on above: Performed By: #### 5 7021-8 #### GRACIELA Lang ([id number]) [facility] ([facility]) [address] [place] [address] Nucleated RBC/100 WBC (Bld) [Ratio] 0.0 /100 WBCs Normal 0.0-0.0 [facility] Comment on above: Performed By: #### 5 7021-8 #### GRACIELA Lang ([id number]) [facility] ([facility]) [address] [place] [address] Platelets (Bld) [#/Vol] 489 x10*3/uL High 150-450 [facility] Comment on above: Performed By: #### 5 7021-8 #### GRACIELA Lang ([id number]) [facility] ([facility]) [address] [place] [address] RBC (Bld) [#/Vol] 4.81 x10*6/uL Normal 4.00-5.20 [facility] Comment on above: Performed By: #### 5 7021-8 #### GRACIELA RASCON L ([id number]) [facility] ([facility]) [address] [place] [address] WBC (Bld) [#/Vol] 12.3 x10*3/uL High 4.4-11.3 [facility] Comment on above: Performed By: #### 5 7021-8 #### GRACIELA Lang ([id number]) [facility] ([facility]) [address] [place] [address] Complement C3on 11-01-2023 Complement C3 [Mass/Vol] 159 mg/dL Normal 87-200 [facility] Comment on above: Performed By: #### 4 485-9 #### GRACIELA Lang ([id number]) [facility] ([facility]) [address] [place] [address] Complement C4on 11-01-2023 Complement C4 [Mass/Vol] 75 mg/dL High 10-50 [facility] Comment on above: Performed By: #### 4 498-2 #### GRACIELA Lang ([id number]) [facility] ([facility]) [address] [place] [address] Comprehensive metabolic 2000 panelon 11-01-2023 Albumin BCP dye [Mass/Vol] 4.3 g/dL Normal 3.4-5.0 [facility] Comment on above: Performed By: #### 2 4323-8 #### GRACIELA Lang ([id number]) [facility] ([facility]) [address] [place] [address] ALP [Catalytic activity/Vol] 126 U/L High 33-110 [facility] Comment on above: Performed By: #### 2 4323-8 #### GRACIELA Lang ([id number]) [facility] ([facility]) [address] [place] [address] ALT With P-5'-P [Catalytic activity/Vol] 14 U/L Normal 7-45 [facility] Comment on above: Result Comment: Loretta ents treated with Sulfasalazine may generate falsely decreased results for ALT. Performed By: #### 2 4323-8 #### GRACIELA Lang ([id number]) [facility] ([facility]) [address] [place] [address] Anion gap [Moles/Vol] 15 mmol/L Normal 10-20 [facility] Comment on above: Performed By: #### 2 4323-8 #### GRACIELA Lang ([id number]) [facility] ([facility]) [address] [place] [address] AST With P-5'-P [Catalytic activity/Vol] 17 U/L Normal 9-39 [facility] Comment on above: Performed By: #### 2 4323-8 #### GRACIELA Lang ([id number]) [facility] ([facility]) [address] [place] [address] Bilirubin [Mass/Vol] 0.5 mg/dL Normal 0.0-1.2 [facility] Comment on above: Performed By: #### 2 4323-8 #### RGACIELA Lang ([id number]) [facility] ([facility]) [address] [place] [address] Calcium [Mass/Vol] 9.9 mg/dL Normal 8.6-10.6 [facility] Comment on above: Performed By: #### 2 4323-8 #### GRACIELA Lang ([id number]) [facility] ([facility]) [address] [place] [address] Chloride [Moles/Vol] 102 mmol/L Normal 98-107 [facility] Comment on above: Performed By: #### 2 4323-8 #### GRACIELA RASCON L ([id number]) [facility] ([facility]) [address] [place] [address] CO2 [Moles/Vol] 28 mmol/L Normal 21-32 [facility] Comment on above: Performed By: #### 2 4323-8 #### GRACIELA RASCON L ([id number]) [facility] ([facility]) [address] [place] [address] Creatinine [Mass/Vol] 1.00 mg/dL Normal 0.50-1.05 [facility] Comment on above: Performed By: #### 2 4323-8 #### GRACIELA RASCON L ([id number]) [facility] ([facility]) [address] [place] [address] Glomerular filtration rate/1.73 sq M.predicted 68 mL/min/1.73m*2 Normal >60 [facility] Comment on above: Result Comment: Calc ulations of estimated GFR are performed using the 2020 CKD-EPI Study Refit equation without the race variable for the IDMS-Traceable creatinine methods. https://jasn.asnjournals.org/content//ASN.62889 04615 Performed By: #### 2 4323-8 #### GRACIELA Lang ([id number]) [facility] ([facility]) [address] [place] [address] Glucose [Mass/Vol] 145 mg/dL High 74-99 [facility] Comment on above: Performed By: #### 2 4323-8 #### GRACIELA Lang ([id number]) [facility] ([facility]) [address] [place] [address] Potassium [Moles/Vol] 5.1 mmol/L Normal 3.5-5.3 [facility] Comment on above: Performed By: #### 2 4323-8 #### GRACIELA Lang ([id number]) [facility] ([facility]) [address] [place] [address] Protein [Mass/Vol] 7.0 g/dL Normal 6.4-8.2 [facility] Comment on above: Performed By: #### 2 4323-8 #### GRACIELA RASCON L ([id number]) [facility] ([facility]) [address] [place] [address] Sodium [Moles/Vol] 140 mmol/L Normal 136-145 [facility] Comment on above: Performed By: #### 2 4323-8 #### GRACIELA Lang ([id number]) [facility] ([facility]) [address] [place] [address] Urea nitrogen [Mass/Vol] 15 mg/dL Normal 6-23 [facility] Comment on above: Performed By: #### 2 4323-8 #### GRACIELA Lang ([id number]) [facility] ([facility]) [address] [place] [id number] DNA double strand Abon 10-31 DNA double strand Ab Qn (S) [IU]/mL Normal <5.0 [facility] Comment on above: Result Comment: NEGA TIVE: <= 4 IU/ML EQUIVOCAL: 5- 9 IU/ML POSITIVE: >=10 IU/ML Performed By: #### 5 130-0 #### GRACIELA Lang ([id number]) [facility] ([facility]) [address] [place], [place] [id number] ESR Westergren method (Bld) [Velocity]on 11-01-2023 ESR (Bld) [Velocity] 34 mm/h High 0-30 [facility] Comment on above: Performed By: #### 4 537-7 #### GRACIELA Lang ([id number]) [facility] ([facility]) [address] [place] [address] HbA1c (Bld) [Mass fraction]o n 11-01-2023 Average glucose Estimated from glycated hemoglobin (Bld) [Mass/Vol] 160 mg/dL Normal Not Established [facility] Comment on above: Order Comment: Diagn osis of Diabetes-Adults Non-Diabetic: < or = 5.6% Increased risk for developing diabetes: 5.7-6.4% Diagnostic of diabetes: > or = 6.5% Performed By: #### 4 548-4 #### GRACIELA Lang ([id number]) [facility] ([facility]) [address] [place] [id number] Hemoglobin A1c/Hemoglobin.to flavio 11-01-2023 HbA1c (Bld) [Mass fraction] 7.2 % High see below [facility] Comment on above: Order Comment: Diagn osis of Diabetes-Adults Non-Diabetic: < or = 5.6% Increased risk for developing diabetes: 5.7-6.4% Diagnostic of diabetes: > or = 6.5% Performed By: #### 4 [id number] #### GRACIELA Lang ([id number]) [facility] ([facility]) [address] [place] [address] .Auto Diffon 10-02-2023 Basophil, Absolute 0.0 10 3/mcL Normal 0.0-0.3 [facility] ([place]) Comment on above: Performed By: #### T ROPHS, DIMER, TSHR, A1C, LIPID #### [address] [address] Basophils/100 WBC (Bld) 0.3 % Normal 0.0-2.5 [facility] ([place]) Comment on above: Performed By: #### T ROPHS, DIMER, TSHR, A1C, LIPID #### [address] [address] Eosinophil, Absolute 0.7 10 3/mcL Normal 0.0-0.7 [facility] ([place]) Comment on above: Performed By: #### T ROPHS, DIMER, TSHR, A1C, LIPID #### [address] [address] Eosinophils/100 WBC (Bld) 5.6 % Normal 0.0-6.0 [facility] ([place]) Comment on above: Performed By: #### T ROPHS, DIMER, TSHR, A1C, LIPID #### [address] [address] Lymphocyte, Absolute 3.7 10 3/mcL Normal 0.9-4.3 [facility] ([place]) Comment on above: Performed By: #### T ROPHS, DIMER, TSHR, A1C, LIPID #### [address] [address] Lymphocytes/100 WBC (Bld) 29.8 % Normal 20.0-40.0 [facility] ([place]) Comment on above: Performed By: #### T ROPHS, DIMER, TSHR, A1C, LIPID #### [address] [address] Monocyte, Absolute 1.6 10 3/mcL High 0.1-1.4 [facility] ([place]) Comment on above: Performed By: #### T ROPHS, DIMER, TSHR, A1C, LIPID #### [address] [address] Monocytes/100 WBC (Bld) 12.8 % Normal 2.0-13.0 [facility] ([place]) Comment on above: Performed By: #### T ROPHS, DIMER, TSHR, A1C, LIPID #### [address] [address] Neutrophils/100 WBC (Bld) 51.5 % Normal 50.0-75.0 [facility] ([place]) Comment on above: Performed By: #### T ROPHS, DIMER, TSHR, A1C, LIPID #### [address] [address] .GFRon 10-02-2023 GFR >60 Normal [facility] ([place]) Comment on above: Result Comment: GFR Population [...] mL/min/1.73 square meters Performed By: #### T ROPSTEPHEN, DIMER, TSHR, A1C, LIPID #### [address] [address] GFR Non- >60 Normal [facility] ([place]) Comment on above: Result Comment: GFR Population [...] T ROPHS, DIMER, TSHR, A1C, LIPID #### [address] [id number] .NEUABSon 10-02-2023 Neutrophil, Absolute 6.4 10 3/mcL Normal 2.3-8.1 [facility] ([place]) Comment on above: Performed By: #### T ROPHS, DIMER, TSHR, A1C, LIPID #### [address] [address] BMPon 10-02-2023 BUN/Creatinine Ratio 18.1 ratio Normal 10.0-22.0 [facility] ([place]) Comment on above: Performed By: #### T ROPHS, DIMER, TSHR, A1C, LIPID #### [place] [id number] Calcium [Mass/Vol] 9.4 mg/dL Normal 8.7-10.4 [facility] ([place]) Comment on above: Performed By: #### T ROPHS, DIMER, TSHR, A1C, LIPID #### [place] [address] Chloride [Moles/Vol] 105 mmol/L Normal 98-110 [facility] ([place]) Comment on above: Performed By: #### T ROPHS, DIMER, TSHR, A1C, LIPID #### [place] [id number] CO2 [Moles/Vol] 27 mmol/L Normal 22-32 [facility] ([place]) Comment on above: Performed By: #### T ROPHS, DIMER, TSHR, A1C, LIPID #### [address] [address] Creatinine [Mass/Vol] 0.83 mg/dL Normal 0.50-1.20 [facility] ([place]) Comment on above: Performed By: #### T ROPHS, DIMER, TSHR, A1C, LIPID #### [place] [address] Electrolyte Balance 8.0 mEq/L Normal 4.0-15.0 [facility] ([place]) Comment on above: Performed By: #### T CHICO, DIMER, TSHR, A1C, LIPID #### [address] [address] Glucose [Mass/Vol] 132 mg/dL High 70-110 [facility] ([place]) Comment on above: Performed By: #### T CHICO, DIMER, TSHR, A1C, LIPID #### [address] [address] Potassium [Moles/Vol] 4.3 mmol/L Normal 3.5-5.0 [facility] ([place]) Comment on above: Performed By: #### T CHICO, DIMER, TSHR, A1C, LIPID #### [address] [address] Sodium [Moles/Vol] 140 mmol/L Normal 136-145 [facility] ([place]) Comment on above: Performed By: #### T CHICO, DIMER, TSHR, A1C, LIPID #### [address] [address] Urea nitrogen [Mass/Vol] 15.0 mg/dL Normal 8.0-22.0 [facility] ([place]) Comment on above: Performed By: #### T CHICO, DIMER, TSHR, A1C, LIPID #### [address] [address] CBCon 10-02-2023 Erythrocyte distribution width (RBC) [Ratio] 13.3 % Normal 11.5-15.5 [facility] ([place]) Comment on above: Performed By: #### T CHICO, DIMER, TSHR, A1C, LIPID #### [address] [address] Hematocrit (Bld) [Volume fraction] 40.4 % Normal 34.0-46.0 [facility] ([place]) Comment on above: Performed By: #### T CHICO, DIMER, TSHR, A1C, LIPID #### [address] [address] Hgb 13.7 G/dL Normal 12.0-16.0 [facility] ([place]) Comment on above: Performed By: #### T ROPHS, DIMER, TSHR, A1C, LIPID #### [place] [address] MCH (RBC) [Entitic mass] 30.5 pg Normal 27.0-33.0 [facility] ([place]) Comment on above: Performed By: #### T ROPHS, DIMER, TSHR, A1C, LIPID #### [place] [address] MCHC 33.9 G/dL Normal 32.0-36.0 [facility] ([place]) Comment on above: Performed By: #### T ROPHS, DIMER, TSHR, A1C, LIPID #### [place] [address] MCV (RBC) [Entitic vol] 90.0 fL Normal 80.0-99.0 [facility] ([place]) Comment on above: Performed By: #### T ROPHS, DIMER, TSHR, A1C, LIPID #### [place] [address] Platelet 404 10 3/mcL Normal 150-450 [facility] ([place]) Comment on above: Performed By: #### T ROPHS, DIMER, TSHR, A1C, LIPID #### [place] [address] Platelet mean volume (Bld) [Entitic vol] 8.2 fL Normal 6.6-10.5 [facility] ([place]) Comment on above: Performed By: #### T ROPHS, DIMER, TSHR, A1C, LIPID #### [place] [address] RBC 4.49 10 6/mcL Normal 4.10-5.30 [facility] ([place]) Comment on above: Performed By: #### T ROPHS, DIMER, TSHR, A1C, LIPID #### [place] [address] WBC 12.4 10 3/mcL High 4.5-10.8 [facility] ([place]) Comment on above: Performed By: #### T ROPHS, DIMER, TSHR, A1C, LIPID #### [facility] [address] [place] [address] LABORATORYOrdered By: Mallika Guerrero on 10-02-2023 Blood Glucose Testing Reason Routine (10/02/23 4:29 PM) [facility] Work Phone: Glucose [Mass/Vol] 96 mg/dL Normal 70 - 110 mg/dL [facility] Work Phone: LABORATORYOrdered By: Jose Carlos Irwin on 10-02-2023 Blood Glucose Testing Reason Routine (10/02/23 12:06 PM) [facility] Work Phone: Glucose [Mass/Vol] 120 mg/dL High 70 - 110 mg/dL [facility] Work Phone: LABORATORYOrdered By: Bela Rodriguez on 10-02-2023 Blood Glucose Testing Reason Routine (10/02/23 10:15 AM) [facility] Work Phone: Glucose [Mass/Vol] 184 mg/dL High 70 - 110 mg/dL [facility] Work Phone: LABORATORYOrdered By: SYSTEM SYSTEM on 10-02-2023 Basophils (Bld) [#/Vol] 0.0 103/mcL Normal 0.0 - 0.3 10^3/mcL Workflow SS Basophils/100 WBC (Bld) 0.3 % Normal 0.0 - 2.5 % AH Workflow SS Calcium [Mass/Vol] 9.4 mg/dL Normal 8.7 - 10. 4 mg/dL AH ADM SS Chloride [Moles/Vol] 105 mmol/L Normal 98 - 11 0 mEq/L AH ADM SS CO2 [Moles/Vol] 27 mmol/L Normal 22 - 32 mEq/L AH ADM SS Creatinine [Mass/Vol] 0.83 mg/dL Normal 0.50 - 1.20 mg/dL AH ADM SS Electrolyte Balance 8.0 mEq/L Normal 4.0 - 15 .0 mEq/L ADM SS Eosinophils (Bld) [#/Vol] 0.7 103/mcL Normal 0.0 - 0.7 10^3/mcL AH Workflow SS Eosinophils/100 WBC (Bld) 5.6 % Normal 0.0 - 6.0 % Workflow SS Erythrocyte distribution width (RBC) [Ratio] 13.3 % Normal 11.5 - 15.5 % Workflow SS GFR/1.73 sq M.predicted among blacks MDRD (S/P/Bld) [Vol rate/Area] ml/min/1.73sqm Invalid Interpretation Code [facility] Comment on above: Interpretive Data: GFR Population [...] (S/P/Bld) [Vol rate/Area] ml/min/1.73sqm Invalid Interpretation Code [facility] Comment on above: Interpretive Data: GFR Population [...] 110 mg/dL ADM Hematocrit (Bld) [Volume fraction] 40.4 % Normal 34.0 - 46.0 % Workflow SS Hemoglobin (Bld) [Mass/Vol] 13.7 G/dL Normal 12.0 - 16.0 G/dL AH Workflow SS Lymphocytes (Bld) [#/Vol] 3.7 103/mcL Normal 0.9 - 4.3 10^3/mcL AH Workflow SS Lymphocytes/100 WBC (Bld) 29.8 % Normal 20.0 - 40.0 % AH Workflow SS Magnesium [Mass/Vol] 2.0 mg/dL Normal 1.6 - 2 .4 mg/dL AH ADM SS MCH (RBC) [Entitic [...] 4.3 mmol/L Normal 3.5 - 5.0 mEq/L ADM SS RBC (Bld) [#/Vol] 4.49 106/mcL Normal 4.10 - 5.3 0 10^6/mcL AH Workflow SS Sodium [Moles/Vol] 140 mmol/L Normal 136 - 145 mEq/L AH ADM SS Urea nitrogen [Mass/Vol] 15.0 mg/dL Normal 8.0 - 22.0 mg/dL ADM SS Urea nitrogen/Creatinine [Mass ratio] 18.1 ratio Normal 10.0 - 22.0 ratio ADM SS WBC (Bld) [#/Vol] 12.4 103/mcL High 4.5 - 10.8 10^3/mcL Workflow SS MGon 10-02-2023 Magnesium [Mass/Vol] 2.0 mg/dL Normal 1.6-2.4 [facility] ([place]) Comment on above: Performed By: #### T CHICO, DIMER, TSHR, A1C, LIPID #### [address] [address] [place] MYOCARDIAL SPECT STRESS/R ESTon 10-02-2023 NM [...] Date: 10/02/2023 8:31:57 PM Ordering Provider:Robert Tao [facility] ([place]) .Auto Diffon 10-01-2023 Basophil, Absolute 0.0 10 3/mcL Normal 0.0-0.3 [facility] ([place]) Comment on above: Performed By: #### T CHICO, DIMER, TSHR, A1C, LIPID #### [place] [id number] [place] [address] Basophils/100 WBC (Bld) 0.2 % Normal 0.0-2.5 [facility] ([place]) Comment on above: Performed By: #### T ROPHS, DIMER, TSHR, A1C, LIPID #### [address] [address] Eosinophil, Absolute 0.7 10 3/mcL Normal 0.0-0.7 [facility] ([place]) Comment on above: Performed By: #### T ROPHS, DIMER, TSHR, A1C, LIPID #### [address] [address] Eosinophils/100 WBC (Bld) 6.3 % High 0.0-6.0 [facility] ([place]) Comment on above: Performed By: #### T ROPHS, DIMER, TSHR, A1C, LIPID #### [address] [address] Lymphocyte, Absolute 3.0 10 3/mcL Normal 0.9-4.3 [facility] ([place]) Comment on above: Performed By: #### T ROPHS, DIMER, TSHR, A1C, LIPID #### [address] [address] Lymphocytes/100 WBC (Bld) 28.3 % Normal 20.0-40.0 [facility] ([place]) Comment on above: Performed By: #### T ROPHS, DIMER, TSHR, A1C, LIPID #### [address] [address] Monocyte, Absolute 1.3 10 3/mcL Normal 0.1-1.4 [facility] ([place]) Comment on above: Performed By: #### T ROPHS, DIMER, TSHR, A1C, LIPID #### [address] [address] Monocytes/100 WBC (Bld) 12.0 % Normal 2.0-13.0 [facility] ([place]) Comment on above: Performed By: #### T ROPHS, DIMER, TSHR, A1C, LIPID #### [address] [address] Neutrophils/100 WBC (Bld) 53.2 % Normal 50.0-75.0 [facility] ([place]) Comment on above: Performed By: #### T CHICO, DIMER, TSHR, A1C, LIPID #### [address] [address] .GFRon 10-01-2023 GFR >60 Normal [facility] ([place]) Comment on above: Result Comment: GFR Population [...] T CHICO, DIMER, TSHR, A1C, LIPID #### [place] [address] GFR Non- >60 Normal [facility] ([place]) Comment on above: Result Comment: GFR Population [...] T CHICO, DIMER, TSHR, A1C, LIPID #### [address] [address] .NEUABSon 10-01-2023 Neutrophil, Absolute 5.6 10 3/mcL Normal 2.3-8.1 [facility] ([place]) Comment on above: Performed By: #### T RICHHS, DIMER, TSHR, A1C, LIPID #### [address] [address] A1Con 10-01-2023 HbA1c (Bld) [Mass fraction] 7.0 % High 4.0-6.0 [facility] ([place]) Comment on above: Performed By: #### T RICHHS, DIMER, TSHR, A1C, LIPID #### [address] [address] BMPon 10-01-2023 BUN/Creatinine Ratio 13.0 ratio Normal 10.0-22.0 [facility] ([place]) Comment on above: Performed By: #### T CHICO, DIMER, TSHR, A1C, LIPID #### [address] [address] Calcium [Mass/Vol] 8.8 mg/dL Normal 8.7-10.4 [facility] ([place]) Comment on above: Performed By: #### T CHICO, DIMER, TSHR, A1C, LIPID #### [address] [address] Chloride [Moles/Vol] 109 mmol/L Normal 98-110 [facility] ([place]) Comment on above: Performed By: #### T CHICO, DIMER, TSHR, A1C, LIPID #### [address] [address] CO2 [Moles/Vol] 24 mmol/L Normal 22-32 [facility] ([place]) Comment on above: Performed By: #### T CHICO, DIMER, TSHR, A1C, LIPID #### [address] [address] Creatinine [Mass/Vol] 0.77 mg/dL Normal 0.50-1.20 [facility] ([place]) Comment on above: Performed By: #### T ROPHS, DIMER, TSHR, A1C, LIPID #### [address] [address] Electrolyte Balance 8.0 mEq/L Normal 4.0-15.0 [facility] ([place]) Comment on above: Performed By: #### T ROPHS, DIMER, TSHR, A1C, LIPID #### [address] [address] Glucose [Mass/Vol] 132 mg/dL High 70-110 [facility] ([place]) Comment on above: Performed By: #### T ROPHS, DIMER, TSHR, A1C, LIPID #### [address] [address] Potassium [Moles/Vol] 4.0 mmol/L Normal 3.5-5.0 [facility] ([place]) Comment on above: Performed By: #### T ROPHS, DIMER, TSHR, A1C, LIPID #### [place] [id number] Sodium [Moles/Vol] 141 mmol/L Normal 136-145 [facility] ([place] Comment on above: Performed By: #### T ROPHS, DIMER, TSHR, A1C, LIPID #### [place] [id number] Urea nitrogen [Mass/Vol] 10.0 mg/dL Normal 8.0-22.0 [facility] ([place]) Comment on above: Performed By: #### T ROPHS, DIMER, TSHR, A1C, LIPID #### [address] [address] CBCon 10-01-2023 Erythrocyte distribution width (RBC) [Ratio] 13.4 % Normal 11.5-15.5 [facility] ([place]) Comment on above: Performed By: #### T ROPHS, DIMER, TSHR, A1C, LIPID #### [place] [phone] Hematocrit (Bld) [Volume fraction] 39.6 % Normal 34.0-46.0 [facility] ([place]) Comment on above: Performed By: #### T ROPHS, DIMER, TSHR, A1C, LIPID #### [place] [id number] Hgb 13.5 G/dL Normal 12.0-16.0 [facility] ([place]) Comment on above: Performed By: #### T ROPHS, DIMER, TSHR, A1C, LIPID #### [place] [address] MCH (RBC) [Entitic mass] 30.6 pg Normal 27.0-33.0 [facility] ([place]) Comment on above: Performed By: #### T ROPHS, DIMER, TSHR, A1C, LIPID #### [place] [address] MCHC 34.2 G/dL Normal 32.0-36.0 [facility] ([place]) Comment on above: Performed By: #### T ROPHS, DIMER, TSHR, A1C, LIPID #### [place] [address] MCV (RBC) [Entitic vol] 89.4 fL Normal 80.0-99.0 [facility] ([place]) Comment on above: Performed By: #### T ROPHS, DIMER, TSHR, A1C, LIPID #### [place] [address] Platelet 400 10 3/mcL Normal 150-450 [facility] ([place]) Comment on above: Performed By: #### T ROPHS, DIMER, TSHR, A1C, LIPID #### [place] [address] Platelet mean volume (Bld) [Entitic vol] 8.2 fL Normal 6.6-10.5 [facility] ([place]) Comment on above: Performed By: #### T ROPHS, DIMER, TSHR, A1C, LIPID #### [place] [address] RBC 4.43 10 6/mcL Normal 4.10-5.30 [facility] ([place]) Comment on above: Performed By: #### T ROPHS, DIMER, TSHR, A1C, LIPID #### [place] [address] WBC 10.5 10 3/mcL Normal 4.5-10.8 [facility] ([place]) Comment on above: Performed By: #### T ROPHS, DIMER, TSHR, A1C, LIPID #### [place] [address] LABORATORYOrdered By: SYSTEM SYSTEM on 10-01-2023 Basophils (Bld) [#/Vol] 0.0 103/mcL Normal 0.0 - 0.3 10^3/mcL Workflow SS Basophils/100 WBC (Bld) 0.2 % Normal 0.0 - 2.5 % AH Workflow SS Calcium [Mass/Vol] 8.8 mg/dL Normal 8.7 - 10. 4 mg/dL AH ADM SS Chloride [Moles/Vol] 109 mmol/L Normal 98 - 11 0 mEq/L ADM SS CO2 [Moles/Vol] 24 mmol/L Normal 22 - 32 mEq/L ADM SS Creatinine [Mass/Vol] 0.77 mg/dL Normal 0.50 - 1.20 mg/dL ADM SS Electrolyte Balance 8.0 mEq/L Normal 4.0 - 15 .0 mEq/L ADM SS Eosinophils (Bld) [#/Vol] 0.7 103/mcL Normal 0.0 - 0.7 10^3/mcL Workflow SS Eosinophils/100 WBC (Bld) 6.3 % [...] Magnesium [Mass/Vol] 1.9 mg/dL Normal 1.6 - 2 .4 mg/dL ADM SS MCH (RBC) [Entitic mass] [...] 13.0 ratio Normal 10.0 - 22.0 ratio AH ADM SS WBC (Bld) [#/Vol] 10.5 103/mcL Normal 4.5 - 10.8 10^3/mcL Workflow SS MGon 10-01-2023 Magnesium [Mass/Vol] 1.9 mg/dL Normal 1.6-2.4 [facility] ([place]) Comment on above: Performed By: #### T CHICO, DIMER, TSHR, A1C, LIPID #### [address] [id number] .Auto Diffon 09-30-2023 Basophil, Absolute 0.0 10 3/mcL Normal 0.0-0.3 [facility] ([place]) Comment on above: Performed By: #### T KATELIN GOLDEN ANEU, MDW, CBC, ADIFF, GFR, CMP #### [address] [address] Basophils/100 WBC (Bld) 0.3 % Normal 0.0-2.5 [facility] ([place]) Comment on above: Performed By: #### T KATELIN GOLDEN ANEU, MDW, CBC, ADIFF, GFR, CMP #### [address] [address] Eosinophil, Absolute 0.7 10 3/mcL Normal 0.0-0.7 [facility] ([place]) Comment on above: Performed By: #### T ROPHS, PBNP, ANEU, MDW, CBC, ADIFF, GFR, CMP #### [address] [address] Eosinophils/100 WBC (Bld) 6.0 % Normal 0.0-6.0 [facility] ([place]) Comment on above: Performed By: #### T CHICO, PBNP, ANEU, MDW, CBC, ADIFF, GFR, CMP #### [address] [address] Lymphocyte, Absolute 3.1 10 3/mcL Normal 0.9-4.3 [facility] ([place]) Comment on above: Performed By: #### T CHICO, PBNP, ANEU, MDW, CBC, ADIFF, GFR, CMP #### [address] [address] Lymphocytes/100 WBC (Bld) 27.9 % Normal 20.0-40.0 [facility] ([place]) Comment on above: Performed By: #### T CHICO, PBNP, ANEU, MDW, CBC, ADIFF, GFR, CMP #### [address] [address] Monocyte, Absolute 1.1 10 3/mcL Normal 0.1-1.4 [facility] ([place]) Comment on above: Performed By: #### T CHICO, PBNP, ANEU, MDW, CBC, ADIFF, GFR, CMP #### [address] [address] Monocytes/100 WBC (Bld) 9.7 % Normal 2.0-13.0 [facility] ([place]) Comment on above: Performed By: #### T CHICO, PBNP, ANEU, MDW, CBC, ADIFF, GFR, CMP #### [address] [address] Neutrophils/100 WBC (Bld) 56.1 % Normal 50.0-75.0 [facility] ([place]) Comment on above: Performed By: #### T CHICO, PBNP, ANEU, MDW, CBC, ADIFF, GFR, CMP #### [address] [address] .GFRon 09-30-2023 GFR >60 Normal [facility] ([place]) Comment on above: Result Comment: GFR Population [...] T ROPHS, DIMER, TSHR, A1C, LIPID #### [address] [address] GFR Non- >60 Normal [facility] ([place]) Comment on above: Result Comment: GFR Population [...] T ROPHS, DIMER, TSHR, A1C, LIPID #### [address] [id number] .MDWon 09-30-2023 Monocyte Distribution Width 18.98 Normal 0.00-20.00 [facility] ([place]) Comment on above: Result Comment: For ED adult patients suspected of sepsis, MDW<=20.0 does not rule out sepsis or risk of sepsis Performed By: #### T ROPHS, DIMER, TSHR, A1C, LIPID #### [address] [address] .NEUABSon 09-30-2023 Neutrophil, Absolute 6.2 10 3/mcL Normal 2.3-8.1 [facility] ([place]) Comment on above: Performed By: #### T CHICO, DIMER, TSHR, A1C, LIPID #### [address] [address] CBCon 09-30-2023 Erythrocyte distribution width (RBC) [Ratio] 13.8 % Normal 11.5-15.5 [facility] ([place]) Comment on above: Performed By: #### T CHICO, KATELIN, ANEU, MDW, CBC, ADIFF, GFR, CMP #### [place] [address] Hematocrit (Bld) [Volume fraction] 41.8 % Normal 34.0-46.0 [facility] ([place] Comment on above: Performed By: #### T CHICO, PBASHLEY, ANEU, MDW, CBC, ADIFF, GFR, CMP #### [place] [address] Hgb 14.1 G/dL Normal 12.0-16.0 [facility] ([place]) Comment on above: Performed By: #### T CHICO, KATELIN, ANEU, MDW, CBC, ADIFF, GFR, CMP #### [place] [address] MCH (RBC) [Entitic mass] 30.5 pg Normal 27.0-33.0 [facility] ([place]) Comment on above: Performed By: #### T CHICO, PBNP, ANEU, MDW, CBC, ADIFF, GFR, CMP #### [place] [address] MCHC 33.7 G/dL Normal 32.0-36.0 [facility] ([place]) Comment on above: Performed By: #### T CHICO, PBNP, ANEU, MDW, CBC, ADIFF, GFR, CMP #### [place] [id number] MCV (RBC) [Entitic vol] 90.6 fL Normal 80.0-99.0 [facility] ([place] Comment on above: Performed By: #### T CHICO, KATELIN, ANEU, MDW, CBC, ADIFF, GFR, CMP #### [address] [address] Platelet 433 10 3/mcL Normal 150-450 [facility] ([place]) Comment on above: Performed By: #### T CHICO, KATELIN, ANEU, MDW, CBC, ADIFF, GFR, CMP #### [place] [address] Platelet mean volume (Bld) [Entitic vol] 8.6 fL Normal 6.6-10.5 [facility] ([place] Comment on above: Performed By: #### T CHICO, KATELIN, ANEU, MDW, CBC, ADIFF, GFR, CMP #### [place] [id number] RBC 4.62 10 6/mcL Normal 4.10-5.30 [facility] ([place]) Comment on above: Performed By: #### T CHICO, KATELIN, ANEU, MDW, CBC, ADIFF, GFR, CMP #### [place] [id number] WBC 11.0 10 3/mcL High 4.5-10.8 [facility] ([place]) Comment on above: Performed By: #### T CHICO, KATELIN, ANEU, MDW, CBC, ADIFF, GFR, CMP #### [place] [phone] CMPon 09-30-2023 Albumin Level 3.8 G/dL Normal 3.2-4.8 [facility] ([place] Comment on above: Performed By: #### T CHICO, DIMER, TSHR, A1C, LIPID #### [place] [address] Albumin/Globulin [Mass ratio] 1.2 {ratio} Normal 0.9-1.6 [facility] ([place]) Comment on above: Performed By: #### T CHICO, DIMER, TSHR, A1C, LIPID #### [address] [address] ALP [Catalytic activity/Vol] 125 U/L Normal 38-126 [facility] ([place]) Comment on above: Performed By: #### T ROPHS, DIMER, TSHR, A1C, LIPID #### [address] [address] ALT [Catalytic activity/Vol] 24 U/L Normal 10-49 [facility] ([place] Comment on above: Performed By: #### T ROPHS, DIMER, TSHR, A1C, LIPID #### [address] [address] AST [Catalytic activity/Vol] 25 U/L Normal 8-34 [facility] ([place]) Comment on above: Performed By: #### T ROPHS, DIMER, TSHR, A1C, LIPID #### [place] [id number] Bili Total 0.20 mg/dL Normal 0.20-1.20 [facility] ([place]) Comment on above: Result Comment: Use of this assay is not recommended for patients undergoing treatment with eltrombopag due to the potential for falsely elevated results. Performed By: #### T CHICO, DIMER, TSHR, A1C, LIPID #### [place] [id number] BUN/Creatinine Ratio 16.7 ratio Normal 10.0-22.0 [facility] ([place]) Comment on above: Performed By: #### T CHICO, DIMER, TSHR, A1C, LIPID #### [address] [id number] Calcium [Mass/Vol] 8.9 mg/dL Normal 8.7-10.4 [facility] ([place]) Comment on above: Performed By: #### T ROPHS, DIMER, TSHR, A1C, LIPID #### [address] [id number] Chloride [Moles/Vol] 103 mmol/L Normal 98-110 [facility] ([place]) Comment on above: Performed By: #### T ROPHS, DIMER, TSHR, A1C, LIPID #### [address] [id number] CO2 [Moles/Vol] 30 mmol/L Normal 22-32 [facility] ([place]) Comment on above: Performed By: #### T ROPSTEPHEN, DIMER, TSHR, A1C, LIPID #### [address] [id number] Creatinine [Mass/Vol] 0.78 mg/dL Normal 0.50-1.20 [facility] ([place]) Comment on above: Performed By: #### T ROPHS, DIMER, TSHR, A1C, LIPID #### [address] [address] Electrolyte Balance 4.0 mEq/L Normal 4.0-15.0 [facility] ([place]) Comment on above: Performed By: #### T RICHHS, DIMER, TSHR, A1C, LIPID #### [address] [id number] Globulin 3.1 G/dL Normal 1.5-3.8 [facility] ([place]) Comment on above: Performed By: #### T ROPHS, DIMER, TSHR, A1C, LIPID #### [place] [id number] Glucose [Mass/Vol] 138 mg/dL High 70-110 [facility] ([place]) Comment on above: Performed By: #### T ROPHS, DIMER, TSHR, A1C, LIPID #### [address] [address] Potassium [Moles/Vol] 4.0 mmol/L Normal 3.5-5.0 [facility] ([place]) Comment on above: Performed By: #### T ROPHS, DIMER, TSHR, A1C, LIPID #### [address] [address] Sodium [Moles/Vol] 137 mmol/L Normal 136-145 [facility] ([place]) Comment on above: Performed By: #### T ROPHS, DIMER, TSHR, A1C, LIPID #### [place] [id number] Total Protein 6.9 G/dL Normal 5.7-8.2 [facility] ([place]) Comment on above: Result Comment: No te - New Reference Range in effect 19 Performed By: #### T CHICO, DIMER, TSHR, A1C, LIPID #### [address] [address] Urea nitrogen [Mass/Vol] 13.0 mg/dL Normal 8.0-22.0 [facility] ([place]) Comment on above: Performed By: #### T CHICO, DIMER, TSHR, A1C, LIPID #### [address] [id number] DIMERon 09-30-2023 D-Dimer <200 Normal 0-230 [facility] ([place]) Comment on above: Order Comment: Blue top [...] T CHICO, DIMER, TSHR, A1C, LIPID #### [address] [id number] LABORATORYOrdered By: Rene Randall on 09-30-2023 Cholesterol [...] tests should be performed accordingly. LABORATORYOrdered By: [employer] on 09-30-2023 HbA1c (Bld) [Mass fraction] [...] 4 mg/dL AH ADM SS Chloride [Moles/Vol] 103 mmol/L Normal 98 - 11 0 mEq/L ADM SS CO2 [Moles/Vol] 30 mmol/L Normal 22 - 32 mEq/L AH ADM SS Creatinine [Mass/Vol] 0.78 mg/dL Normal [...] (S/P/Bld) [Vol rate/Area] ml/min/1.73sqm Invalid Interpretation Code [facility] Comment on above: Interpretive Data: GFR Population [...] (S/P/Bld) [Vol rate/Area] ml/min/1.73sqm Invalid Interpretation Code [facility] Comment on above: Interpretive Data: GFR Population [...] 3.1 G/dL Normal 1.5 - 3.8 G/dL AH ADM SS Glucose [Mass/Vol] 138 mg/dL High 70 - 110 mg/dL ADM SS Hematocrit (Bld) [Volume fraction] 41.8 [...] 6.9 G/dL Normal 5.7 - 8.2 G/dL ADM SS Comment on above: Interpretive Data: [...] ng/L Male: 0-54 ng/L Testing performed on Memrise analyzer using direct chemiluminescent technology. Urea nitrogen [Mass/Vol] 13.0 mg/dL Normal 8.0 - 22.0 mg/dL ADM SS Urea nitrogen/Creatinine [Mass ratio] 16.7 ratio Normal 10.0 - 22.0 ratio AH ADM SS WBC (Bld) [#/Vol] 11.0 103/mcL High 4.5 - 10.8 10^3/mcL Workflow SS LIPIDon 09-30-2023 Cholesterol [Mass/Vol] 218 mg/dL High 50-199 [facility] ([place]) Comment on above: Result Comment: Chol esterol Reference Interval: Less than 200 Desirable 200-239 Borderline high risk 240 and above High risk Performed By: #### Fredrick GOLDEN, DIMER, TSHR, A1C, LIPID #### [address] [address] Cholesterol in HDL [Mass/Vol] 61 mg/dL High 40-59 [facility] ([place]) Comment on above: Performed By: #### Fredrick GOLDEN, DIMER, TSHR, A1C, LIPID #### [address] [address] Cholesterol in LDL [Mass/Vol] 132 mg/dL High 0-129 [facility] ([place]) Comment on above: Performed By: #### Fredrick GOLDEN, DIMER, TSHR, A1C, LIPID #### [address] [address] Triglyceride [Mass/Vol] 127 mg/dL Normal 3-149 [facility] ([place]) Comment on above: Performed By: #### Fredrick GOLDEN, DIMER, TSHR, A1C, LIPID #### [address] [address] PBNPon 09-30-2023 Natriuretic peptide B (Bld) [Mass/Vol] 354 pg/mL Normal 0-900 [facility] ([place]) Comment on above: Performed By: #### T CHICO, DIMER, TSHR, A1C, LIPID #### [address] [address] TROPHSon 09-30-2023 High Sensitivity Troponin I <3 Normal 0-34 [facility] ([place]) Comment on above: Order Comment: Blue top hemolyzed; please recollect; spoke with Nabeel in ER:18:54 Result Comment: High Sensitive Troponin I Reference Ranges: Female: 0-34 ng/L Male: 0-54 ng/L Testing performed on Atellica IM analyzer using direct chemiluminescent technology. Performed By: #### T CHICO, DIMER, TSHR, A1C, LIPID #### [place] [address] High Sensitivity Troponin I <3 Normal 0-34 [facility] ([place]) Comment on above: Result Comment: High Sensitive Troponin I Reference Ranges: Female: 0-34 ng/L Male: 0-54 ng/L Testing performed on Atellica IM analyzer using direct chemiluminescent technology. Performed By: #### T CHICO, DIMER, TSHR, A1C, LIPID #### [place] [address] High Sensitivity Troponin I <3 Normal 0-34 [facility] ([place]) Comment on above: Result Comment: High Sensitive Troponin I Reference Ranges: Female: 0-34 ng/L Male: 0-54 ng/L Testing performed on Atellica IM analyzer using direct chemiluminescent technology. Performed By: #### T ROPHS #### [place] [address] TSHRon 09-30-2023 TSH 2.780 mIU/mL Normal 0.550-4.780 [facility] ([place]) Comment on above: Result Comment: No te - New Reference Range in effect 19 Performed By: #### T RICHHS, DIMER, TSHR, A1C, LIPID #### [place] [id number] UAon 09-30-2023 Color (U) Yellow Normal [facility] ([place]) Comment on above: Performed By: #### U A #### [address] [address] Glucose (U) [Mass/Vol] Negative Normal Negative [facility] ([place]) Comment on above: Performed By: #### U A #### [address] [address] Ketones Ql (U) Negative Normal Neg-Trace [facility] ([place]) Comment on above: Performed By: #### U A #### [address] [address] UA Appear Clear Normal Clear [facility] ([place]) Comment on above: Performed By: #### U A #### [place] [address] UA Blood Negative Normal Neg-Trace [facility] ([place]) Comment on above: Performed By: #### U A #### [place] [address] UA Leuk Est Negative Normal Negative [facility] ([place]) Comment on above: Performed By: #### U A #### [place] [address] UA Nitrite Negative Normal Negative [facility] ([place]) Comment on above: Performed By: #### U A #### [place] [address] UA pH 5.5 Normal 5.0 - 8.0 [facility] ([place]) Comment on above: Performed By: #### U A #### [address] [address] UA Protein Negative Normal Negative [facility] ([place]) Comment on above: Performed By: #### U A #### [place] [address] UA Spec Grav <=1.005 Abnormal 1.006-1.029 [facility] ([place]) Comment on above: Performed By: #### U A #### [place] [address] UA Specimen Type Void Normal [facility] ([place]) Comment on above: Performed By: #### U A #### [facility] [address] [place] [address] UA Urobilinogen 0.2 E.U./dL Normal 0.2-1.0 [facility] ([place]) Comment on above: Performed By: #### U A #### [facility] [address] [place] [address] Urobilinogen (U) [Mass/Vol] Negative Normal Neg-Trace [facility] ([place]) Comment on above: Performed By: #### U A #### [facility] [address] [place] [address] XR CHEST 1 VIEWon 09-30-2023 XR CHEST [...] by: Rustam Soto MD Preliminary Report By: Mika Verde Electronically signed By Rustam Soto MD Dictated Date: 09/30/2023 2:27:47 PM Prelim Date: 09/30/2023 2:29:28 PM Sign Date: 09/30/2023 2:49:27 PM Ordering Provider: DONIS TADEO [facility] ([place]) No Panel Informationon 01-31 Table formatting fro [...] of bowel preparation was evaluated using the Shannon Bowel Preparation Scale with scores of: right [...] AM Specimens No specimens collected Procedure Location [facility] External Facility [facility] [address] [address] [facility] [id number] Ref[place] [address] [facility] [place] [address] Procedure Provider Ángel Vicente DO [facility] Work Phone: [facility] Work Phone: Radiology Study observation (narrative) [facility] Work Phone: ANTI-DNA [DS]on 11-01-2022 ANTI-DNA [DS] <1.0 Normal [facility] Comment on above: Result Comment: REF VALUES NEGATIVE: <= 4 IU/ML EQUIVOCAL: 5- 9 IU/ML POSITIVE: >=10 IU/ML Performed By: #### D NADS #### [facility] [address] [address] Anti-dsDNA (Double Stranded) Antibodieson 11-01-2022 DNA double strand Ab Qn (S) [IU]/mL [facility] Work Phone: Comment on above: REF VALUESNEGATIVE: <= 4 IU/MLEQUIVOCAL: 5- 9 IU/MLPOSITIVE: >=10 IU/ML C Reactive Protein, Serumon 11-01-2022 CRP [Mass/Vol] 1.78 mg/dL Abnormal [facility] [employer] Work Phone: Comment on above: REF VALUE< 1.00 C-REACTIVE PROTEINon 023 C-REACTIVE PROTEIN 1.78 mg/dL Abnormal [facility] Comment on above: Result Comment: REF VALUE < 1.00 Performed By: #### C RP #### [facility] [address] [place] [address] C3 COMPLEMENTon 11-01-2022 C3 COMPLEMENT 158 mg/dL Normal 87 - 200 [facility] Comment on above: Performed By: #### V TDOH #### [facility] [address] [place] [address] C3 Complement, Serumon 11-01 Complement C3 [Mass/Vol] 158 mg/dL 87 - 200 [facility] [employer] Work Phone: C4 COMPLEMENTon 11-01-2022 C4 COMPLEMENT 71 mg/dL High 10 - 50 [facility] Comment on above: Performed By: #### C 4 #### [facility] [address] [place] [address] C4 Complement, Serumon 11-01 Complement C4 [Mass/Vol] 71 mg/dL above high threshold 10 - 50 [facility] [employer] Work Phone: CBC AND DIFFERENTIALon 11-01 % AUTOMATED IMMATURE GRAN 0.2 % Normal 0.0 - 0.9 [facility] Comment on above: Result Comment: Jahaira ture Granulocyte Count (IG) includes promyelocytes, myelocytes and metamyelocytes but does not include bands. Percent differential counts (%) should be interpreted in the context of the absolute cell counts (cells/L). Performed By: #### V TDOH #### [place] [address] [place] [address] Basophils (Bld) [#/Vol] 0.16 10*3/uL High 0.00 - 0.10 [facility] Comment on above: Performed By: #### V TDOH #### [facility] [address] [place] [address] Basophils/100 WBC (Bld) 1.5 % Normal 0.0 - 2.0 [facility] Comment on above: Performed By: #### V TDOH #### [facility] [address] [place] [address] Eosinophils (Bld) [#/Vol] 0.42 10*3/uL Normal 0.00 - 0.70 [facility] Comment on above: Performed By: #### V TDOH #### [facility] [address] [place] [address] Eosinophils/100 WBC (Bld) 3.9 % Normal 0.0 - 6.0 [facility] Comment on above: Performed By: #### V TDOH #### [facility] [address] [place] [address] Erythrocyte distribution width (RBC) [Ratio] 14.1 % Normal 11.5 - 14.5 [facility] Comment on above: Performed By: #### V TDOH #### [facility] [address] [place] [address] Hematocrit (Bld) [Volume fraction] 44.6 % Normal 36.0 - 46.0 [facility] Comment on above: Performed By: #### V TDOH #### [facility] [address] [place] [address] Hemoglobin (Bld) [Mass/Vol] 13.8 g/dL Normal 12.0 - 16.0 [facility] Comment on above: Performed By: #### V TDOH #### [facility] [address] [place] [address] Lymphocytes (Bld) [#/Vol] 2.81 10*3/uL Normal 1.20 - 4.80 [facility] Comment on above: Performed By: #### V TDOH #### [facility] [address] [place] [address] Lymphocytes/100 WBC (Bld) 26.3 % Normal 13.0 - 44.0 [facility] Comment on above: Performed By: #### V TDOH #### [facility] [address] [place] [address] MCHC (RBC) [Mass/Vol] 30.9 g/dL Low 32.0 - 36.0 [facility] Comment on above: Performed By: #### V TDOH #### [facility] [address] [place] [address] MCV (RBC) [Entitic vol] 93 fL Normal 80 - 100 [facility] Comment on above: Performed By: #### V TDOH #### [facility] [address] [place] [address] Monocytes (Bld) [#/Vol] 1.25 10*3/uL High 0.10 - 1.00 [facility] Comment on above: Performed By: #### V TDOH #### [facility] [address] [place] [address] Monocytes/100 WBC (Bld) 11.7 % Normal 2.0 - 10.0 [facility] Comment on above: Performed By: #### V TDOH #### [facility] [address] [place] [address] Neutrophils (Bld) [#/Vol] 6.03 10*3/uL Normal 1.20 - 7.70 [facility] Comment on above: Performed By: #### V TDOH #### [facility] [address] [place] [address] Neutrophils/100 WBC (Bld) 56.4 % Normal 40.0 - 80.0 [facility] Comment on above: Performed By: #### V TDOH #### [facility] [address] [place] [address] NUCLEATED RBC 0.0 /100 WBC Normal 0.0-0.0 [facility] Comment on above: Performed By: #### V TDOH #### [facility] [address] [place] [address] Platelets (Bld) [#/Vol] 465 10*3/uL High 150 - 450 [facility] Comment on above: Performed By: #### V TDOH #### [facility] [address] [place] [address] RBC 4.78 x10E12/L Normal 4.00 - 5.20 [facility] Comment on above: Performed By: #### V TDOH #### [facility] [address] [place] [address] WBC (Bld) [#/Vol] 10.7 10*3/uL Normal 4.4 - 11.3 [facility] Comment on above: Performed By: #### V TDOH #### [facility] [address] [place] [address] COMPREHENSIVE PANELon 2022 Albumin [Mass/Vol] 4.2 g/dL Normal 3.4 - 5.0 [facility] Comment on above: Performed By: #### C MP #### [facility] [address] [place] [address] ALP [Catalytic activity/Vol] 89 U/L Normal 33 - 110 [facility] Comment on above: Performed By: #### C MP #### [facility] [address] [place] [address] ALT [Catalytic activity/Vol] 13 U/L Normal 7 - 45 [facility] Comment on above: Result Comment: Loretta ents treated with Sulfasalazine may generate falsely decreased results for ALT. Performed By: #### C MP #### [facility] [address] [place] [address] Anion gap [Moles/Vol] 14 mmol/L Normal 10 - 20 [facility] Comment on above: Performed By: #### C MP #### [facility] [address] [place] [address] AST [Catalytic activity/Vol] 16 U/L Normal 9 - 39 [facility] Comment on above: Performed By: #### C MP #### [facility] [address] [place] [address] Bilirubin [Mass/Vol] 0.5 mg/dL Normal 0.0 - 1.2 [facility] Comment on above: Performed By: #### C MP #### [facility] [address] [place] [address] Calcium [Mass/Vol] 9.9 mg/dL Normal 8.6 - 10.6 [facility] Comment on above: Performed By: #### C MP #### [facility] [address] [place] [address] Chloride [Moles/Vol] 99 mmol/L Normal 98 - 107 [facility] Comment on above: Performed By: #### C MP #### [facility] [address] [place] [address] Creatinine [Mass/Vol] 0.91 mg/dL Normal 0.50 - 1.05 [facility] Comment on above: Performed By: #### C MP #### [facility] [address] [place] [address] GFR/1.73 sq M.predicted among non-blacks MDRD (S/P/Bld) [Vol rate/Area] 77 mL/min/{1.73_m2} Normal >90 [facility] Comment on above: Result Comment: CALC ULATIONS OF ESTIMATED GFR ARE PERFORMED USING THE 2020 CKD-EPI STUDY REFIT EQUATION WITHOUT THE RACE VARIABLE FOR THE IDMS-TRACEABLE CREATININE METHODS. https://jasn.asnjournals.org/content/early//ASN.23592 24058 Performed By: #### C MP #### [facility] [address] [place] [address] Glucose [Mass/Vol] 102 mg/dL High 74 - 99 [facility] Comment on above: Performed By: #### C MP #### [facility] [address] [place] [address] HCO3 (Bld) [Moles/Vol] 30 mmol/L Normal 21 - 32 [facility] Comment on above: Performed By: #### C MP #### [facility] [address] [place] [address] Potassium [Moles/Vol] 4.8 mmol/L Normal 3.5 - 5.3 [facility] Comment on above: Performed By: #### C MP #### [facility] [address] [place] [address] Protein [Mass/Vol] 7.0 g/dL Normal 6.4 - 8.2 [facility] Comment on above: Performed By: #### C MP #### [facility] [address] [place] [address] Sodium [Moles/Vol] 138 mmol/L Normal 136 - 145 [facility] Comment on above: Performed By: #### C MP #### [facility] [address] [place] [address] Urea nitrogen [Mass/Vol] 16 mg/dL Normal 6 - 23 [facility] Comment on above: Performed By: #### C MP #### [facility] [address] [place] [address] Complete Blood Count + Diffe rentialon 11-01-2022 Basophils/100 WBC (Bld) 1.5 % 0.0 - 2.0 [facility] [employer] Work Phone: [phone] Erythrocyte distribution width (RBC) [Ratio] 14.1 % See Below [facility] Work Phone: [phone] Comment on above: Reference Range: 11. 5 - 14.5 Hematocrit (Bld) [Volume fraction] 44.6 % See Below [facility] [employer] Work Phone: [phone] Comment on above: Reference Range: 36. 0 - 46.0 Hemoglobin (Bld) [Mass/Vol] 13.8 g/dL See Below [facility] Work Phone: [phone] Comment on above: Reference Range: 12. 0 - 16.0 Lymphocytes/100 WBC (Bld) 26.3 % See Below [facility] Work Phone: [phone] Comment on above: Reference Range: 13. 0 - 44.0 MCHC (RBC) [Mass/Vol] 30.9 g/dL below low threshold See Below [facility] [employer] Work Phone: [phone] Comment on above: Reference Range: 32. 0 - 36.0 MCV (RBC) [Entitic vol] 93 fL 80 - 100 [facility] [employer] Work Phone: [phone] Monocytes/100 WBC (Bld) 11.7 % 2.0 - 10.0 -[facility] Work Phone: [phone] Neutrophils/100 WBC (Bld) 56.4 % See Below -[facility] Work Phone: [phone] Comment on above: Reference Range: 40. 0 - 80.0 Platelets (Bld) [#/Vol] 465 10*3/uL above high threshold 150 - 450 -[facility] Work Phone: [phone] RBC (Bld) [#/Vol] 4.78 {x10E12/L} See Below -[facility] Work Phone: [phone] Comment on above: Reference Range: 4.0 0 - 5.20 WBC (Bld) [#/Vol] 10.7 10*3/uL 4.4 - 11.3 -[facility] [employer] Work Phone: [phone] Complete Blood Count + Differential 0.16 {x10E9/L} above high threshold See Below -[facility] Work Phone: [phone] Comment on above: Reference Range: 0.0 0 - 0.10 Complete Blood Count + Differential 0.42 {x10E9/L} See Below -[facility] Work Phone: [phone] Comment on above: Reference Range: 0.0 0 - 0.70 Complete Blood Count + Differential 1.25 {x10E9/L} above high threshold See Below -[facility] Work Phone: [phone] Comment on above: Reference Range: 0.1 0 - 1.00 Complete Blood Count + Differential 2.81 {x10E9/L} See Below [facility] [employer] Work Phone: [phone] Comment on above: Reference Range: 1.2 0 - 4.80 Complete Blood Count + Differential 6.03 {x10E9/L} See Below [employer] [facility] [employer] Work Phone: Comment on above: Reference Range: 1.2 0 - 7.70 Complete Blood Count + Differential 3.9 % 0.0 - 6.0 [facility] [employer] Work Phone: [phone] Complete Blood Count + Differential 0.2 % 0.0 - 0.9 [facility] Work Phone: [phone] Comment on above: Immature Granulocyte Count (IG) includes promyelocytes, myelocytes and metamyelocytes but does not include bands. Percent differential counts (%) should be interpreted in the context of the absolute cell counts (cells/L). Complete Blood Count + Differential 0.0 {/100_WBC} 0.0-0.0 [facility] Work Phone: Follow Up (Rheumatology)on 11-01-2022 Follow [...] By:Maura Lange; Sedimentation Rate, Erythrocyte; Status:Active; Requested for:[id number]; Perform:Lab Services - Lab To Draw (Blood [...] (M32.9) Vitamin (more content not included)... Normal [facility] - Chemistry and C hemistry - challengeon 08-02-2023 Albumin BCP dye [Mass/Vol] 4.2 g/dL 3.4 - 5.0 -[facility] Work Phone: [phone] ALP [Catalytic activity/Vol] 89 U/L 33 - 110 [facility] Phone: [phone] ALT With P-5'-P [Catalytic activity/Vol] 13 U/L 7 - 45 -[facility] Work Phone: [phone] Comment on above: Patients treated wit h Sulfasalazine may generate falsely decreased results for ALT. Anion gap [Moles/Vol] 14 mmol/L 10 - 20 - [facility] Work Phone: [phone] AST With P-5'-P [Catalytic activity/Vol] 16 U/L 9 - 39 -[facility] Work Phone: [phone] Bilirubin [Mass/Vol] 0.5 mg/dL 0.0 - 1.2 -[facility] [employer] Work Phone: [phone] Calcium [Mass/Vol] 9.9 mg/dL 8.6 - 10.6 -[facility] [employer] Work Phone: [phone] Chloride [Moles/Vol] 99 mmol/L 98 - 107 [facility] Work Phone: [phone] CO2 [Moles/Vol] 30 mmol/L 21 - 32 -[facility] Work Phone: [phone] Creatinine [Mass/Vol] 0.91 mg/dL See Below - [facility] Work Phone: [phone] Comment on above: Reference Range: 0.5 0 - 1.05 Glucose [Mass/Vol] 102 mg/dL above high threshold 74 - 99 -[facility] Work Phone: [phone] Potassium [Moles/Vol] 4.8 mmol/L 3.5 - 5.3 - [facility] Work Phone: [phone] Protein [Mass/Vol] 7.0 g/dL 6.4 - 8.2 [facility] [employer] Work Phone: [phone] Sodium [Moles/Vol] 138 mmol/L 136 - 145 [facility] [employer] Work Phone: [phone] Urea nitrogen [Mass/Vol] 16 mg/dL 6 - 23 -[facility] [employer] Work Phone: [phone] Panel Informationon 11-01 77 {mL/min/1.73m2} >90 [facility] [employer] Work Phone: [phone] Comment on above: CALCULATIONS OF BRANDON MATED GFR ARE PERFORMED USING THE 2020 CKD-EPI STUDY REFIT EQUATION WITHOUT THE RACE VARIABLE FOR THE IDMS-TRACEABLE CREATININE METHODS.https://jasn.asnjournals.org/content/early/A SN.0130781195 SEDIMENTATION RATE, ERYTHROC YTEon 11-01-2022 SEDIMENTATION RATE, ERYTHROCYTE 35 mm/h High 0 - 20 [facility] Comment on above: Performed By: #### E SRWS #### [facility] [address] [place] [address] Sedimentation Rate, Erythroc yteon 11-01-2022 ESR (Bld) [Velocity] 35 mm/h above high threshold 0 - 20 -[facility] Work Phone: [phone] Tobacco Screening.on 023 Adult depression screening assessment No -[facility] Work Phone: [phone] Fall risk assessment a) No falls within the last year -[facility] Work Phone: [phone] Tobacco use status CPHS b) No -[facility] Work Phone: [phone] Office Visit (Internal Medic ine)on 10-10-2022 [...] hypertension; JONN = N; Verified Transmission to [place] [address]; Last Updated By: [employer]; 10/10/2022 11:03:52 AM Chest pressure IO EKG Electrocardiogram- 12 Lead; Status:Active - Perform Order; Requested for:[id number]; Perform:In Office; Due:[id number];Ordered; For:Chest pressure; Ordered By:Giselle Boykin; DM2 (diabetes mellitus, type 2) Start: Ozempic (0.25 or 0.5 MG/DOSE) 2 MG/3ML Subcutaneous Solution Pen-injector; Inject 0.25 mg weekly for 4 weeks, then increase to 0.5 mg dose Rx By: Giselle Boykin; Dispense: 0 Days ; #:1 X 3 ML Pen; Refill: 1;For: DM2 (diabetes mellitus, type 2); JONN = N; Verified Transmission to [place] [address]; Last Updated By: [employer]; 10/10/2022 11:03:54 AM; COUPON: Available Hand dermatitis Start: Clobetasol Propionate 0.05 % External Cream; APPLY SPARINGLY TO AFFECTED AREA(S) TWICE DAILY Rx By: Giselle Boykin; Dispense: 0 Days ; #:1 X 30 GM Tube; Refill: 0;For: Hand dermatitis; JONN = N; [facility] [place] [address]; Last Updated By: [employer]; 10/10/2022 11:03:53 AM Situational anxiety Renew: hydrOXYzine HCl - 25 MG Oral Tablet; TAKE 1 TABLET BY MOUTH TWICE DAILY NEEDED FOR ANXIETY Rx By: Giselle oBykin; Dispense: 0 Days ; #:30 Tablet; Refill: 1;For: Situational anxiety; JONN = N; [facility]; Last Updated By: System, Cleartrip; 10/10/2022 11:03:52 AM Provider Impressions Chest pressure [...] 2020 History (more content not included)... Normal [facility] Tobacco Screening.on 023 Fall risk assessment a) No falls within the last year [facility] Work Phone: Tobacco use status CPHS b) No [facility] Work Phone: CORONAVIRUS 2019 BY PCRon SARS-CoV-2 (COVID-19) RNA CARLY+probe Ql (Unsp spec) Not detected Normal Not Detected [facility] Comment on above: Result Comment: . This assay is designed to detect the ORF1a/b and E genes of SARS-CoV-2 via nucleic acid amplification. A Not Detected result does not preclude 2019-nCoV infection since the adequacy of sample collection and/or low viral burden may result in presence of viral nucleic acids below the clinical sensitivity of this test method. Fact sheet for providers: https://www.fda.gov/media/775663/download Fact sheet for patients: https://www.fda.gov/media/066219/download This test has received FDA Emergency Use Authorization (EUA) and has been verified for use by [facility] ([facility]). This test is only authorized for the duration of time that circumstances exist to justify the authorization of the emergency use of in vitro diagnostic tests for the detection of SARS-CoV-2 virus and/or diagnosis of COVID-19 infection under section 564(b)(1) of the Act, 21 U.S.C. 360bbb-3(b)(1), unless the authorization is terminated or revoked sooner. [facility] is certified under CLIA-88 as qualified to perform high complexity testing. Testing is performed in the [facility] laboratories located at [address] [place] [address]. Performed By: #### V TDKS #### [address] [place] [address] Covid 19 Resultson 3 SARS-CoV-2 (COVID-19) RNA [...] You may also be contacted by the [facility] to see if any of your close [...] or Naproxen (Aleve) can also be used. Oopf-ugr-viltgyc cough and cold medicines can be used according to the instructions on the package. Some rxkt-knj-jhjhhnn medicines also contain acetaminophen. Make sure you [...] water are not available, use alcohol-based hand ebay reseller. Avoid touching your eyes, nose, and mouth [...] 24 opal (more content not included)... Normal [facility] CORONAVIRUS 2019 BY PCRon Lab Specimen Source Nasal, Nasopharyngeal Normal [facility] Comment on above: Performed By: #### V TDOH #### [facility] [address] [address] Coronavirus 2019 RNA by PCR, Symptomaticon 08-30-2022 Coronavirus 2019 RNA by PCR, Symptomatic Not detected Normal See Below -[facility] Work Phone: Comment on above: SOURCE: [...] this test method. Fact sheet for providers: https://www.fda.gov/media/403052/download Fact sheet for patients: https://www.fda.gov/media/477566/download This test has received FDA Emergency Use Authorization (EUA) and has been verified for use by [facility] ([facility]). This test is only authorized for the duration of time that circumstances exist to justify the authorization of the emergency use of in vitro diagnostic tests for the detection of SARS-CoV-2 virus and/or diagnosis of COVID-19 infection under section 564(b)(1) of the Act, 21 U.S.C. 360bbb-3(b)(1), unless the authorization is terminated or revoked sooner.[facility] is certified under CLIA-88 as qualified to perform high complexity testing. Testing is performed in the [facility] laboratories located at [address] [place] [address] Rapid Strepon 08-30-2022 S. pyogenes Ag Ql (Throat) Negative [facility] Work Phone: Office Visit (Internal Medic ine)on 08-30-2022 Follow-up visit Diagnoses/Problems Assessed Sinobronchitis (473.9,490) (J32.9,J40) Sore throat (462) (J02.9) Orders Sinobronchitis Start: Amoxicillin-Pot Clavulanate 875-125 MG Oral Tablet; Take 1 tablet twice daily Rx By: Yasmine Lopez; Dispense: 10 Days ; #:20 Tablet; Refill: 0;For: Sinobronchitis; JONN = N; Verified Transmission to [facility]; Last Updated By: Rosy Lora; 08/30/2022 3:15:32 PM Start: Promethazine-DM 6.25-15 MG/5ML Oral Syrup (Promethazine-DM); TAKE 5 ML EVERY 4 TO 6 HOURS NEEDED FOR COUGH Rx By: Yasmine Lopez; Dispense: 4 Days ; #:1 X 118 ML Bottle; Refill: 0;For: Sinobronchitis; JONN = N; Verified Transmission to [facility]; Last Updated By: Rosy Lora; 08/30/2022 3:15:32 PM Sore throat Coronavirus 2019 RNA by PCR, Symptomatic; Status:Active - Retrospective Authorization; Requested for:30Aug2022; Perform:Lab Services - Lab To Draw (Non-Blood Test); Due:28Nov2022; Last Updated By:Graciela Clarke; 08/30/2022 3:37:49 PM;Ordered; For:Sore throat; Ordered By:Yasmine Lopez; IO Rapid Strep; Status:Resulted - Requires Verification,Retrospecti ve Authorization; Done: 30Aug2022 03:14PM Performed:In Office; Due:28Nov2022; Last Updated By:Lyn Lambert; 08/30/2022 3:15:09 PM;Ordered; [...] if you want to find out about director social welfare available to you dial 211 24 hour hot line telephone numbers: Suicide or Mental Health Mobile Crisis Help Line [phone] Child Abuse or Neglect [phone] Elder Abuse or Neglect [phone] Rape Crisis [phone] Domestic Violence [phone] Narcotics Anonymous [phone] Mobile crisis hotline [phone] ( frontline health service ) This medical [...] strep, coughing up mucous History of Present Gnmrbbl05-ywfh-gvu female presents today with sore throat and [...] diarrhea (chronic (more content not included)... Normal [facility] Tobacco Screening.on 023 Adult depression screening assessment No [facility] Work Phone: Fall risk assessment a) No falls within the last year [facility] Work Phone: Tobacco use status CPHS b) No -[facility] Work Phone: DIGITAL MAMM SCREENING W/ TO [place]avera 05-11-2022 DIGITAL MAMM SCREENING W/ DALTON Patient Name: CHINA ORTIZ STUDY: DIGITAL MAMM SCREENING W/ DALTON; 05/11/2022 10:02 am ACCESSION NUMBER(S): [id number] ORDERING CLINICIAN: GISELLE BOYKIN INDICATION: Screening. COMPARISON: 04/15/2020 FINDINGS: 2D and tomosynthesis images were reviewed at 1 mm slice thickness. There are areas of scattered fibroglandular tissue. No suspicious masses or calcifications are identified. IMPRESSION: No mammographic evidence of malignancy. BI-RADS CATEGORY: Category: 1 - Negative. Recommendation: 1 Year Screening. For any future breast imaging appointments, please call [phone]). Patient letter sent SNORM Electronically signed by: CELIO HAUSER MD Normal [facility] Mamm - Screening Mammogram w / Tomosynthesison 05-11-2022 MG Breast Screening Normal -[facility] Work Phone: Office Visit (Internal Medic ine)on [...] hemangioma MRI Liver w/wo Contrast; Status:Active; Requested for:[id number]; Perform: Radiology Services Imaging;Ordered; For:Liver hemangioma; Ordered By:Giselle Boykin; Radiologist to Determine Optimal Study : Y Does the patient have a Cochlear Implant, Pacemaker, Defibrilator, Pacing Wire, Brain Aneurysm Clip, Implanted Nerve or Bone Graft Simulator, Implanted Breast Tissue Sandblast Or Shotblast Equipment Tender, Glucose Monitor, or Neulasta Device? : No [...] vomiting; JONN = N; Verified Transmission to [facility]79; Last Updated By: easyfolio; 05/08/2022 10:12:38 AM PSH: Pancreatectomy distal subtotal, PMH: Splenectomy Gastroenterology Referral Evaluation and Treatment Evaluate AND Treat Status: Hold For - Scheduling Requested for: [id number] Ordered;For: PSH: Pancreatectomy distal subtotal, PMH: Splenectomy; Ordered By: Giselle Boykin Performed: Due: [id number] Provider Impressions Recurrent RUQ pain with nausea, [...] upper abdominal pain. Acutely nauseated, had to plant puller to throw up. Made her way home and then daughter drove her to ER at [place]. Given IV fluids, had CT scan, concerned [...] of Sec (more content not included)... Normal [employer] Tobacco Screening.on Fall risk assessment a) No falls within the last year [facility] Work Phone: [phone] Tobacco use status CPHS b) No [facility] Work Phone: [phone] ANTI-DNA [DS]on 05-03-2022 ANTI-DNA [DS] <1.0 Normal [facility] Comment on above: Result Comment: REF VALUES NEGATIVE: <= 4 IU/ML EQUIVOCAL: 5- 9 IU/ML POSITIVE: >=10 IU/ML Performed By: #### V TDOH #### [facility] [address] [address] Anti-dsDNA (Double Stranded) Antibodieson 05-03-2022 DNA double strand Ab Qn (S) [IU]/mL [facility] Work Phone: Comment on above: REF VALUESNEGATIVE: <= 4 IU/MLEQUIVOCAL: 5- 9 IU/MLPOSITIVE: >=10 IU/ML C Reactive Protein, Serumon 05-03-2022 CRP [Mass/Vol] 0.67 mg/dL [facility] Work Phone: Comment on above: REF VALUE< 1.00 C-REACTIVE PROTEINon 023 C-REACTIVE PROTEIN 0.67 mg/dL Normal [facility] Comment on above: Result Comment: REF VALUE < 1.00 Performed By: #### V TDOH #### [facility] [address] [place] [address] C3 COMPLEMENTon 05-03-2022 C3 COMPLEMENT 139 mg/dL Normal 87 - 200 [facility] Comment on above: Performed By: #### C 3 #### [facility] [address] [place] [address] C3 Complement, Serumon 05-03 Complement C3 [Mass/Vol] 139 mg/dL 87 - 200 [facility] Work Phone: [phone] COMPLEMENTon 05-03-2022 C4 COMPLEMENT 74 mg/dL High 10 - 50 [facility] Comment on above: Performed By: #### V TDOH #### [facility] [address] [place] [address] C4 Complement, Serumon 05-03 Complement C4 [Mass/Vol] 74 mg/dL above high threshold 10 - 50 [facility] Work Phone: Follow Up (Rheumatology)on 0 05-03-2022 [...] ERYTHROCYTE 35 mm/h High 0 - 20 [facility] Comment on above: Performed By: #### E SRWS #### [facility] [address] [place] [address] Sedimentation Rate, Erythroc yteon 05-03-2022 ESR (Bld) [Velocity] 35 mm/h above high threshold 0 - 20 [facility] Work Phone: Tobacco Screening.on 023 Fall risk assessment b) One or more fall s in the last year [email or web address] Work Phone: Tobacco use status CPHS b) No [facility] Work Phone: HEMOGLOBIN A1Con 04-05-2022 Glucose [Mass/Vol] 143 mg/dL Normal [facility] Comment on above: Performed By: #### V TDOH #### [facility] [address] [place] [address] HbA1c (Bld) [Mass fraction] 6.6 % Abnormal [facility] Comment on above: Result Comment: Diag nosis of Diabetes-Adults Non-Diabetic: < or = 5.6% Increased risk for developing diabetes: 5.7-6.4% Diagnostic of diabetes: > or = 6.5% . Monitoring of Diabetes Age (y) Therapeutic Goal (%) Adults: >18 <7.0 Pediatrics: 13-18 <7.5 7-12 <8.0 0- 6 7.5-8.5 [employer]. Diabetes Care 33(S1), Apr 2009. Performed By: #### V TDOH #### [facility] [address] [place] [address] COMPREHENSIVE PANELon 2022 Albumin [Mass/Vol] 4.2 g/dL Normal 3.4 - 5.0 [facility] Comment on above: Performed By: #### C MP #### [facility] [address] [place] [address] ALP [Catalytic activity/Vol] 101 U/L Normal 33 - 110 [facility] Comment on above: Performed By: #### C MP #### [facility] [address] [place] [address] ALT [Catalytic activity/Vol] 10 U/L Normal 7 - 45 [facility] Comment on above: Result Comment: Loretta ents treated with Sulfasalazine may generate falsely decreased results for ALT. Performed By: #### C MP #### [facility] [address] [place] [address] Anion gap [Moles/Vol] 14 mmol/L Normal 10 - 20 [facility] Comment on above: Performed By: #### C MP #### [facility] [address] [place] [address] AST [Catalytic activity/Vol] 15 U/L Normal 9 - 39 [facility] Comment on above: Performed By: #### C MP #### [facility] [address] [place] [address] Bilirubin [Mass/Vol] 0.4 mg/dL Normal 0.0 - 1.2 [facility] Comment on above: Performed By: #### C MP #### [facility] [address] [place] [address] Calcium [Mass/Vol] 9.7 mg/dL Normal 8.6 - 10.6 [facility] Comment on above: Performed By: #### C MP #### [facility] [address] [place] [address] Chloride [Moles/Vol] 104 mmol/L Normal 98 - 107 [facility] Comment on above: Performed By: #### C MP #### [facility] [address] [place] [address] Creatinine [Mass/Vol] 0.93 mg/dL Normal 0.50 - 1.05 [facility] Comment on above: Performed By: #### C MP #### [facility] [address] [place] [address] GFR/1.73 sq M.predicted among non-blacks MDRD (S/P/Bld) [Vol rate/Area] 75 mL/min/{1.73_m2} Normal >90 [facility] Comment on above: Result Comment: CALC ULATIONS OF ESTIMATED GFR ARE PERFORMED USING THE 2020 CKD-EPI STUDY REFIT EQUATION WITHOUT THE RACE VARIABLE FOR THE IDMS-TRACEABLE CREATININE METHODS. https://jasn.asnjournals.org/content//ASN.83518 39845 Performed By: #### C MP #### [facility] [address] [place] [address] Glucose [Mass/Vol] 115 mg/dL High 74 - 99 [facility] Comment on above: Performed By: #### C MP #### [facility] [address] [address] HCO3 (Bld) [Moles/Vol] 27 mmol/L Normal 21 - 32 [facility] Comment on above: Performed By: #### C MP #### [facility] [address] [place] [address] Potassium [Moles/Vol] 5.1 mmol/L Normal 3.5 - 5.3 [facility] Comment on above: Performed By: #### C MP #### [facility] [address] [place] [address] Protein [Mass/Vol] 6.7 g/dL Normal 6.4 - 8.2 [facility] Comment on above: Performed By: #### C MP #### [facility] [address] [place] [address] Sodium [Moles/Vol] 140 mmol/L Normal 136 - 145 [facility] Comment on above: Performed By: #### C MP #### [facility] [address] [place] [address] Urea nitrogen [Mass/Vol] 17 mg/dL Normal 6 - 23 [facility] Comment on above: Performed By: #### C MP #### [facility] [address] [place] [address] Hemoglobin A1Con 04-04-2022 Glucose [Mass/Vol] 143 mg/dL [facility] [employer] Work Phone: HbA1c (Bld) [Mass fraction] 6.6 % Abnormal [facility] [employer] Work Phone: Comment on above: Diagnosis of Diabete s-Adults Non-Diabetic: < or = 5.6% Increased risk for developing diabetes: 5.7-6.4% Diagnostic of diabetes: > or = 6.5%. Monitoring of Diabetes Age (y) Therapeutic Goal (%) Adults: >18 <7.0 Pediatrics: 13-18 <7.5 7-12 <8.0 0- 6 7.5-8.5 [employer]. Diabetes Care 33(S1), Apr 2009. LIPID PANEL (CORONARY RISK 2 )on 04-04-2022 Cholesterol [Mass/Vol] 182 mg/dL Normal 0 - 199 [facility] Comment on above: Result Comment: . AGE [...] Performed By: #### L IPID #### [facility] [address] [place] [address] Cholesterol in HDL [Mass/Vol] 56.7 mg/dL Normal [facility] Comment on above: Result Comment: . AGE VERY LOW LOW NORMAL HIGH 0-19 Y < 35 < 40 40-45 ---- 20-24 Y ---- < 40 >45 ---- >24 Y ---- < 40 40-60 >60 . Performed By: #### L IPID #### [facility] [address] [place] [address] Cholesterol in LDL [Mass/Vol] 104 mg/dL High 0 - 99 [facility] Comment on above: Result Comment: . NEAR BORD AGE DESIRABLE OPTIMAL HIGH HIGH VERY HIGH 0-19 Y 0 - 109 --- 110-129 >/= 130 ---- 20-24 Y 0 - 119 --- 120-159 >/= 160 ---- >24 Y 0 - 99 100-129 130-159 160-189 >/=190 . Performed By: #### L IPID #### [facility] [address] [place] [address] Cholesterol in VLDL [Mass/Vol] 21 mg/dL Normal 0 - 40 [facility] Comment on above: Performed By: #### L IPID #### [facility] [address] [place] [address] Cholesterol.total/Chol esterol in HDL [Mass ratio] 3.2 {ratio} Normal [facility] Comment on above: Result Comment: REF VALUES DESIRABLE < 3.4 HIGH RISK > 5.0 Performed By: #### L IPID #### [facility] [address] [place] [address] Triglyceride [Mass/Vol] 106 mg/dL Normal 0 - 149 [facility] Comment on above: Result Comment: . AGE [...] Performed By: #### L IPID #### [facility] [address] [place] [address] Laboratory - Chemistry and C hemistry - challengeon 04-04-2022 Albumin BCP dye [Mass/Vol] 4.2 g/dL 3.4 - 5.0 [facility] Work Phone: ALP [Catalytic activity/Vol] 101 U/L 33 - 110 -[facility] Work Phone: ALT With P-5'-P [Catalytic activity/Vol] 10 U/L 7 - 45 -[facility] Work Phone: Comment on above: Patients treated wit h Sulfasalazine may generate falsely decreased results for ALT. Anion gap [Moles/Vol] 14 mmol/L 10 - 20 - [facility] Work Phone: [phone] AST With P-5'-P [Catalytic activity/Vol] 15 U/L 9 - 39 -[facility] Work Phone: [phone] Bilirubin [Mass/Vol] 0.4 mg/dL 0.0 - 1.2 [facility] Work Phone: [phone] Calcium [Mass/Vol] 9.7 mg/dL 8.6 - 10.6 [facility] Work Phone: [phone] Chloride [Moles/Vol] 104 mmol/L 98 - 107 [facility] Work Phone: [phone] CO2 [Moles/Vol] 27 mmol/L 21 - 32 -[facility] Work Phone: [phone] Creatinine [Mass/Vol] 0.93 mg/dL See Below - [facility] Work Phone: [phone] Comment on above: Reference Range: 0.5 0 - 1.05 Glucose [Mass/Vol] 115 mg/dL above high threshold 74 - 99 [facility] Work Phone: [phone] Potassium [Moles/Vol] 5.1 mmol/L 3.5 - 5.3 - [facility] Work Phone: [phone] Protein [Mass/Vol] 6.7 g/dL 6.4 - 8.2 -[facility] Work Phone: [phone] Sodium [Moles/Vol] 140 mmol/L 136 - 145 -[facility] Work Phone: [phone] Urea nitrogen [Mass/Vol] 17 mg/dL 6 - 23 [facility] Work Phone: [phone] Lipid Panelon 04-04-2022 Cholesterol [Mass/Vol] 182 mg/dL 0 - 199 [email or web address] [facility] [email or web address] Work Phone: Comment on above: . AGE [...] dosing. Cholesterol in HDL [Mass/Vol] 56.7 mg/dL [facility] Work Phone: [phone] Comment on above: . AGE VERY LOW LOW N ORMAL HIGH 0-19 Y < 35 < 40 40-45 ---- 20-24 Y ---- < 40 >45 ---- >24 Y ---- < 40 40-60 >60. Cholesterol in LDL [Mass/Vol] 104 mg/dL above high threshold 0 - 99 [facility] ElectricDr. [facility] Hospital[facility] Work Phone: [phone] Comment on above: . NEAR BORD AGE JOHNATHON RABLE OPTIMAL HIGH HIGH VERY HIGH 0-19 Y 0 - 109 --- 110-129 >/= 130 ---- 20-24 Y 0 - 119 --- 120-159 >/= 160 ---- >24 Y 0 - 99 100-129 130-159 160-189 >/=190. Cholesterol.total/Chol esterol in HDL [Mass ratio] 3.2 {ratio} [facility] Work Phone: Comment on above: REF VALUESDESIRABLE < 3.4HIGH RISK > 5.0 Triglyceride [Mass/Vol] 106 mg/dL 0 - 149 [facility] Work Phone: Comment on above: . 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 I tried searching [place] [employer]'s website regarding coverage of these vaccines, [...] Medical History (more content not included)... Normal [employer] Tobacco Screening.on 023 Fall risk assessment b) One or more fall s in the last year [facility] [employer] Work Phone: [phone] Tobacco use status CPHS b) No [facility] [employer] Work Phone: [phone] VITAMIN D, 25-HYDROXYon VITAMIN D, 25-HYDROXY 22 ng/mL Abnormal [facility] Comment on above: Result Comment: . DEFICIENCY: < 20 NG/ML INSUFFICIENCY: 20-29 NG/ML SUFFICIENCY: 30-100 NG/ML THIS ASSAY ACCURATELY QUANTIFIES THE SUM OF VITAMIN D3, 25-HYDROXY AND VIT D2,25-HYDROXY. Performed By: #### V TDOH #### [facility] [address] [place] [address] Vitamin D 25-Hydroxyon 04-04 25-hydroxyvitamin D3 [Mass/Vol] 22 ng/mL Abnormal [facility] [employer] Work Phone: [phone] Comment on above: .DEFICIENCY: < 20 NG /MLINSUFFICIENCY: 20-29 NG/MLSUFFICIENCY: 30-100 NG/MLTHIS ASSAY ACCURATELY QUANTIFIES THE SUM OFVITAMIN D3, 25-HYDROXY AND VIT D2,25-HYDROXY. Rogelio 01-02-2022 ANASTASIIA Telephone ([place]ALKWA) -------- CHINA ORTIZ ([id number]) 1970 F Date Time Provider Department 01/02/22 KOBY BRAUN During your visit today, we recorded the following information about you: Aurelia Vilchis 01/02/2022 5:45 PM Signed Crystal called and she asked about her test [...] what she can do? Thank you, Aurelia Vilchis Cassy Ren Ma 01/02/2022 5:51 PM Signed Patient is asking for something else for her cough and nausea. Please send to [facility] in [place]. Shama Irizarry APRN.MIGUELINA 01/02/2022 5:57 PM Signed Zofran interacts with lexapro and hydroxychloroquine. Rx phenergan and tessalon to pharmacy. Shama Irizarry APRN.MIGUELINA 01/02/2022 5:58 PM Signed Addended by: SHAMA IRIZARRY on: 01/02/2022 05:58 PM Modules accepted: Orders Allergies As of Date: 01/02/2022 Noted Allergy Reaction OPIOIDS - MORPHINE ANALOGUES 03/30/2004 2 - Rash 11 - Vomiting Comments: dilaudid SULFAMETHOXAZOLE-TRIMETH OPRIM 05/20/2016 14 - Other: See Comments Comments: blisters HYDROMORPHONE HCL 10/21/2015 11 - Vomiting 2 - Rash Date Reviewed: 12/31/2021 Reviewed by: Koby Braun APRN.[employer] - Fully Assessed Reason for Visit: Patient Question [4911] Order(s):benzonatate (TESSALON PERLES) 100 mg capsuleTake 2 [...] Encounter Status:Closed by AURELIA VILCHIS on 01/02/22 [facility] CNOVon 12-31-2021 CNOV Office Visit (CHENTEWA ) -------- CHINA ORTIZ ([id number]) 1970 F Date Time Provider Department 12/31/21 12:45 PM KOBY BRAUN During your visit today, we recorded the following information about you: Temperature Pulse Respiration Blood pressure 98.7 degrees 99/minute 18/minute 130/85 Weight 91.2 kg Koby Braun APRN.CNP 12/31/2021 2:26 PM Signed This note was created using [employer]. Subjective China Ortiz is a 51 year old female with pmh of PAST MEDICAL HISTORY Diagnosis Date Acute pancreatitis 09/2002 3 previous bouts Cyst and pseudocyst of pancreas 2002 Family history of diabetes mellitus Lupus (HCC) Migraine without aura Presents to [facility] of cough and congestion Patient complains [...] TABLET, EXTENDED RELEASE 12 HR Koby Braun APRN.[employer] Referring Provider: SELF [[id number]] Allergies As of Date: 12/31/2021 Noted Allergy Reaction OPIOIDS - MORPHINE ANALOGUES 03/30/2004 2 - Rash 11 - Vomiting Comments: dilaudid SULFAMETHOXAZOLE-TRIMETH OPRIM 05/20/2016 14 - Other: See Comments Comments: blisters HYDROMORPHONE HCL 10/21/2015 11 - Vomiting 2 - Rash Date Reviewed: 12/31/2021 Reviewed by: Koby Braun APRN.[employer] - Fully Assessed Primary Visit Diagnosis:Acute cough [R05.1] Other Visit Diagnoses:Sore throat [J02.9] Viral URI with cough [J06.9] Order(s):RAPID STREP TEST B/O [0445701] Order #: [id number] COVID WITH FLUA+B, ROUTINE [SQCOVFLU] Order #: [id number]. #:[id number] STREP A MOLECULAR (POC) [[id number]] Order #: [id number]. #:[id number] guaiFENesin (MUCINEX) 600 mg 12 hr tabletTake [...] by mouth. (more content not included)... Normal [facility] STREP A MOLECULAR (POC)on Procedural Control Valid [facility] Strep A (POCT) Negative Negative [facility] ALT - Alanine Aminotransfera se, Serumon 10-27-2021 ALT With P-5'-P [Catalytic activity/Vol] 10 U/L 7 - 45 -[facility] Work Phone: Comment on above: Patients treated wit h Sulfasalazine may generate falsely decreased results for ALT. Anti-dsDNA (Double Stranded) Antibodieson 10-27-2021 DNA double strand Ab Qn (S) [IU]/mL [employer] [facility] Vo[facility] Work Phone: [phone] Comment on above: REF VALUESNEGATIVE: <= 4 IU/MLEQUIVOCAL: 5- 9 IU/MLPOSITIVE: >=10 IU/ML Blood Urea Nitrogen, Serumon 10-27-2021 Urea nitrogen [Mass/Vol] 14 mg/dL 6 - 23 -[facility] Work Phone: [phone] Reactive Protein, Serumon 10-27-2021 CRP [Mass/Vol] 0.60 mg/dL [employer] [facility] Work Phone: [phone] Comment on above: REF VALUE< 1.00 C3 Complement, Serumon 10-27 Complement C3 [Mass/Vol] 160 mg/dL 87 - 200 [employer] [facility] Work Phone: [phone] C4 Complement, Serumon 10-27 Complement C4 [Mass/Vol] 71 mg/dL above high threshold 10 - 50 [employer] [facility] Work Phone: [phone] Complete Blood Count + Diffe rentialon 10-27-2021 Basophils/100 WBC (Bld) 1.8 % 0.0 - 2.0 [employer] [facility] Work Phone: [phone] Erythrocyte distribution width (RBC) [Ratio] 14.6 % above high threshold See Below [facility] Work Phone: [phone] Comment on above: Reference Range: 11. 5 - 14.5 Hematocrit (Bld) [Volume fraction] 45.5 % See Below [facility] Work Phone: [phone] Comment on above: Reference Range: 36. 0 - 46.0 Hemoglobin (Bld) [Mass/Vol] 14.1 g/dL See Below [facility] Work Phone: [phone] Comment on above: Reference Range: 12. 0 - 16.0 Lymphocytes/100 WBC (Bld) 26.8 % See Below [employer] [facility] Work Phone: [phone] Comment on above: Reference Range: 13. 0 - 44.0 MCHC (RBC) [Mass/Vol] 31.0 g/dL below low threshold See Below [facility] Work Phone: [phone] Comment on above: Reference Range: 32. 0 - 36.0 MCV (RBC) [Entitic vol] 97 fL 80 - 100 -[facility] Work Phone: [phone] Monocytes/100 WBC (Bld) 11.1 % 2.0 - 10.0 -[facility] Work Phone: [phone] Neutrophils/100 WBC (Bld) 55.8 % See Below [facility] Work Phone: [phone] Comment on above: Reference Range: 40. 0 - 80.0 Platelets (Bld) [#/Vol] 486 10*3/uL above high threshold 150 - 450 [facility] Work Phone: [phone] RBC (Bld) [#/Vol] 4.70 {x10E12/L} See Below [facility] Voices Work Phone: [phone] Comment on above: Reference Range: 4.0 0 - 5.20 WBC (Bld) [#/Vol] 10.1 10*3/uL 4.4 - 11.3 -[facility] Vo[facility] Work Phone: [phone] Complete Blood Count + Differential 0.18 {x10E9/L} above high threshold See Below [facility] Work Phone: [phone] Comment on above: Reference Range: 0.0 0 - 0.10 Complete Blood Count + Differential 0.38 {x10E9/L} See Below [facility] Work Phone: [phone] Comment on above: Reference Range: 0.0 0 - 0.70 Complete Blood Count + Differential 1.12 {x10E9/L} above high threshold See Below [facility] Work Phone: [phone] Comment on above: Reference Range: 0.1 0 - 1.00 Complete Blood Count + Differential 2.70 {x10E9/L} See Below [employer] [facility] Work Phone: [phone] Comment on above: Reference Range: 1.2 0 - 4.80 Complete Blood Count + Differential 5.63 {x10E9/L} See Below [facility] Work Phone: [phone] Comment on above: Reference Range: 1.2 0 - 7.70 Complete Blood Count + Differential 3.8 % 0.0 - 6.0 [facility] Work Phone: [phone] Complete Blood Count + Differential 0.7 % 0.0 - 0.9 [facility] Work Phone: [phone] Comment on above: Immature Granulocyte Count (IG) includes promyelocytes, myelocytes and metamyelocytes but does not include bands. Percent differential counts (%) should be interpreted in the context of the absolute cell counts (cells/L). Complete Blood Count + Differential 0.0 {/100_WBC} 0.0-0.0 [facility] Work Phone: [phone] Creatinine, Serumon 10-28-19 Creatinine [Mass/Vol] 1.00 mg/dL See Below [employer] [facility] Work Phone: [phone] Comment on above: Reference Range: 0.5 0 - 1.05 Creatinine, Serum 69 {mL/min/1.73m2} >90 [facility] Work Phone: [phone] Comment on above: CALCULATIONS OF BRANDON MATED GFR ARE PERFORMED USING THE 2020 CKD-EPI STUDY REFIT EQUATION WITHOUT THE RACE VARIABLE FOR THE IDMS-TRACEABLE CREATININE METHODS.https://jasn.asnjournals.org/content/early/A SN.5215057701 Laboratory - Chemistry and C hemistry - challengeon 10-27-2021 AST With P-5'-P [Catalytic activity/Vol] 16 U/L 9 - 39 [facility] Work [facility]: [phone] Sedimentation Rate, Erythroc yteon 10-27-2021 ESR (Bld) [Velocity] 20 mm/h 0 - 20 -[facility] Vo[facility] Work Phone: [phone] Tobacco Screening.on 022 Adult depression screening assessment No -[facility] Work Phone: [phone] Fall risk assessment a) No falls within the last year -[facility] Work Phone: [phone] Tobacco use status CPHS b) No -[facility] Work Phone: [phone] Hemoglobin A1Con 09-14-2021 Glucose [Mass/Vol] 140 mg/dL -[facility] Vo[facility] Work Phone: [phone] HbA1c (Bld) [Mass fraction] 6.5 % Abnormal -[facility] Work Phone: [phone] Comment on above: Diagnosis of Diabete s-Adults Non-Diabetic: < or = 5.6% Increased risk for developing diabetes: 5.7-6.4% Diagnostic of diabetes: > or = 6.5%. Monitoring of Diabetes Age (y) Therapeutic Goal (%) Adults: >18 <7.0 Pediatrics: 13-18 <7.5 7-12 <8.0 0- 6 7.5-8.5 [employer]. Diabetes Care 33(S1), Apr 2009. Laboratory - Chemistry and C hemistry - challengeon 09-14-2021 Albumin BCP dye [Mass/Vol] 4.5 g/dL 3.4 - 5.0 -[facility] Work Phone: [phone] Albumin Ql (U) 47.7 mg/L See Below -[facility] Work Phone: [phone] Comment on above: Reference Range: Not Established Albumin/Creatinine DL <= 20 mg/L (U) [Mass ratio] 9.3 {ug/mg_crt} 0.0 - 30.0 -[facility] Work Phone: [phone] ALP [Catalytic activity/Vol] 115 U/L above high threshold 33 - 110 [facility] Work Phone: [phone] ALT With P-5'-P [Catalytic activity/Vol] 14 U/L 7 - 45 -[facility] Work Phone: [phone] Comment on above: Patients treated wit h Sulfasalazine may generate falsely decreased results for ALT. Anion gap [Moles/Vol] 15 mmol/L 10 - 20 - [facility] Work Phone: [phone] AST With P-5'-P [Catalytic activity/Vol] 16 U/L 9 - 39 -[facility] Work Phone: [phone] Bilirubin [Mass/Vol] 0.5 mg/dL 0.0 - 1.2 [facility] Work Phone: [phone] Calcium [Mass/Vol] 10.2 mg/dL 8.6 - 10.6 -[facility] Work Phone: [phone] Chloride [Moles/Vol] 106 mmol/L 98 - 107 [facility] Work Phone: [phone] CO2 [Moles/Vol] 24 mmol/L 21 - 32 [facility] Work Phone: [phone] Creatinine (U) [Mass/Vol] 512.0 mg/dL above high threshold See Below [facility] Work Phone: [phone] Comment on above: Reference Range: 20. 0 - 320.0 Creatinine [Mass/Vol] 1.19 mg/dL above high threshold See Below [facility] Work Phone: [phone] Comment on above: Reference Range: 0.5 0 - 1.05 Glucose [Mass/Vol] 102 mg/dL above high threshold 74 - 99 [facility] Work Phone: [phone] Potassium [Moles/Vol] 4.8 mmol/L 3.5 - 5.3 - [facility] Work Phone: [phone] Protein [Mass/Vol] 7.2 g/dL 6.4 - 8.2 -[facility] Work Phone: [phone] Sodium [Moles/Vol] 140 mmol/L 136 - 145 -[facility] Work Phone: [phone] Urea nitrogen [Mass/Vol] 19 mg/dL 6 - 23 -[facility] Work Phone: [phone] Lipid Panelon 09-14-2021 Cholesterol [Mass/Vol] 173 mg/dL 0 - 199 [facility] Work Phone: [phone] Comment on above: . AGE DESIRABLE [...] dosing. Cholesterol in HDL [Mass/Vol] 53.2 mg/dL [facility] Work Phone: [phone] Comment on above: . AGE VERY LOW LOW N ORMAL HIGH 0-19 Y < 35 < 40 40-45 ---- 20-24 Y ---- < 40 >45 ---- >24 Y ---- < 40 40-60 >60. Cholesterol in LDL [Mass/Vol] 86 mg/dL 0 - 99 [facility] Work Phone: [phone] Comment on above: . NEAR BORD AGE JOHNATHON RABLE OPTIMAL HIGH HIGH VERY HIGH 0-19 Y 0 - 109 --- 110-129 >/= 130 ---- 20-24 Y 0 - 119 --- 120-159 >/= 160 ---- >24 Y 0 - 99 100-129 130-159 160-189 >/=190. Cholesterol.total/Chol esterol in HDL [Mass ratio] 3.3 {ratio} [facility] Work Phone: [phone] Comment on above: REF VALUESDESIRABLE < 3.4HIGH RISK > 5.0 Triglyceride [Mass/Vol] 170 mg/dL above high threshold 0 - 149 [facility] Work Phone: [phone] Comment on above: . AGE DESIRABLE [...] Lipid Panel 34 mg/dL 0 - 40 [facility] Work Phone: [phone] No Panel Informationon 09-14 56 {mL/min/1.73m2} Abnormal >90 [facility] Work Phone: [phone] Comment on above: CALCULATIONS OF BRANDON MATED GFR ARE PERFORMED USING THE 2020 CKD-EPI STUDY REFIT EQUATION WITHOUT THE RACE VARIABLE FOR THE IDMS-TRACEABLE CREATININE METHODS.https://jasn.asnjournals.org/content//A SN.2149409265 Tobacco Screening.on 022 Adult depression screening assessment No [facility] Work Phone: [phone] Fall risk assessment a) No falls within the last year [facility] Work Phone: [phone] Tobacco use status CP b) No [facility] Work Phone: [phone] Respirationon 08-31-2021 Heart Rate Regular [facility] -Franco 170 DO Work Phone: Respiration Normal [facility] -[facility]anco 170 DO Work Phone: No Panel Informationon 05-02 63 mg/dL above high threshold 10-40 [facility] Work Phone: [phone] Comment on above: REFERENCE INTERVAL: Complement Component 4 Access complete set of age- and/or gender-specific reference intervals for this test in the [employer] [facility] Test Directory ([employer]).Performed By: [address] [place] [id number] Director: Le Underwood MD 150 mg/dL Normal 88-201 -[facility] Work Phone: [phone] Comment on above: REFERENCE INTERVAL: Complement Component 3 Access complete set of age- and/or gender-specific reference intervals for this test in the [employer] [facility] Test Directory ([employer]).Performed By: [address] [place], [place] [address]Gzmaaarhad Director: Le Underwood MD Negative Normal -[facility] Work Phone: [phone] Comment on above: This test is a scree n, if positive refer to the quantitative test. Laboratory - Hematology and Cell countson 04-29-2021 Eosinophils/100 WBC (Bld) 4.6 % Normal -[facility] Work Phone: [phone] Lymphocytes/100 WBC (Bld) 17.5 % Normal -[facility] Work Phone: [phone] Neutrophils/100 WBC (Bld) 68.2 % Normal -[facility] Work Phone: [phone] WBC (Bld) [#/Vol] 10.6 10*3/uL Normal [facility] ick Work Phone: [phone] No Panel Informationon 04-29 11 {mm/hr} Normal 0-20 [facility] [employer] Work Phone: [phone] 90.1 fL Normal 80.0-100.0 [facility] Work Phone: [phone] 0 {/100WBC} Normal [facility] Work Phone: [phone] 33.5 g/dL Normal 32.0-37.0 [facility] Work Phone: [phone] {x1000} above high threshold 150-450 [facility] Work Phone: [phone] 4.71 {x10} Normal 4.20-5.40 -[facility] Work Phone: [phone] Comment on above: Note: RBC morphology is normal unless otherwise stated. Evaluation performed only if differential is requested. No Normal -[facility] Work Phone: [phone] 14.2 g/dL Normal 12.0-16.0 [facility] Work Phone: [phone] 8.8 fL Normal 7.4-10.4 [facility] Work Phone: [phone] 42.4 % Normal 36.0-46.0 -[facility] Work Phone: [phone] 30.2 pg Normal 27.0-34.0 [facility] Work Phone: [phone] 14.1 1 Normal 11.5-14.5 -[facility] Work Phone: [phone] 10.6 {x10} Normal 4.5-11.0 -[facility] Work Phone: [phone] 0.89 {x1000} Normal 0.10-1.00 -[facility] Work Phone: [phone] 7.24 {x1000} Normal 1.40-8.80 -[facility] Work Phone: [phone] {x1000} Normal 0.00-0.50 -[facility] Work Phone: [phone] 8.4 % Normal -[facility] Work Phone: [phone] 1.86 {x1000} Normal 1.20-4.80 -[facility] Work Phone: [phone] 1.3 % Normal -[facility] Work Phone: [phone] 0.14 {x1000} Normal 0.00-0.20 -[facility] Work Phone: [phone] 1.0 mg/dL Normal 0.6-1.0 -[facility] Work Phone: [phone] 56 {mL/min/1.73m?} Normal -[facility] Work Phone: [phone] Comment on above: Non GFR CalcMedical [...] be used for drug dosing. >60 Normal [facility] Work Phone: [phone] Comment on above: GFR CalcMedical judgement [...] for drug dosing. 12 mg/dL Normal 10-20 -[facility] Work Phone: [phone] 15 {unit/L} Normal 15-37 -[facility] Work Phone: [phone] Comment on above: Venipuncture should occur prior to sulfasalazine and/or sulfapyridine administration due to the potential for falsely depressed results.Baseline assay values before administration of sulfasalazine and sulfapyridine therapy would not be affected. 20 {unit/L} Normal 13-56 [facility] Work Phone: [phone] Comment on above: Venipuncture should occur prior to sulfasalazine and/or sulfapyridine administration due to the potential for falsely depressed results.Baseline assay values before administration of sulfasalazine and sulfapyridine therapy would not be affected. <0.3 Normal 0.0-0.3 [facility] Work Phone: [phone] Tobacco Screening.on 022 Fall risk assessment a) No falls within the last year [facility] Work Phone: [phone] Tobacco use status CP b) No [facility] Work Phone: [phone] IO Hgb A1Con 03-15-2021 HbA1c (Bld) [Mass fraction] 6.3 % 4.4-6.4% [facility] Vo[facility] Work Phone: [phone] Tobacco Screening.on 021 Fall risk assessment a) No falls within the last year [facility] Work Phone: Tobacco use status [facility] b) No [facility] Work Phone: Respirationon 11-15-2020 Heart Rate Regular [facility] DO Work Phone: Respiration Normal [facility] 170 DO Work Phone: ALT - Alanine Aminotransfera se, Serumon 10-29-2020 ALT With P-5'-P [Catalytic activity/Vol] 12 U/L 7 - 45 [facility] Work Phone: Comment on above: Patients treated wit h Sulfasalazine may generate falsely decreased results for ALT. Anti-dsDNA (Double Stranded) Antibodieson 10-29-2020 DNA double strand Ab Qn (S) [IU]/mL [employer] [facility] Work Phone: [phone] Comment on above: REF VALUESNEGATIVE: <= 4 IU/MLEQUIVOCAL: 5- 9 IU/MLPOSITIVE: >=10 IU/ML Blood Urea Nitrogen, Serumon 10-29-2020 Urea nitrogen [Mass/Vol] 14 mg/dL 6 - 23 [employer] Work Phone: [phone] Reactive Protein, Serumon 10-29-2020 CRP [Mass/Vol] 0.63 mg/dL [employer] [facility] Work Phone: [phone] Comment on above: REF VALUE< 1.00 C3 Complement, Serumon 10-29 Complement C3 [Mass/Vol] 134 mg/dL 87 - 200 [facility] Work Phone: [phone] C4 Complement, Serumon 10-29 Complement C4 [Mass/Vol] 66 mg/dL above high threshold 10 - 50 [employer] [facility] Work Phone: [phone] Complete Blood Count + Diffe rentialon 10-29-2020 Basophils/100 WBC (Bld) 1.5 % 0.0 - 2.0 [employer] [facility] Work Phone: [phone] Erythrocyte distribution width (RBC) [Ratio] 14.2 % See Below [facility] Work Phone: [phone] Comment on above: Reference Range: 11. 5 - 14.5 Hematocrit (Bld) [Volume fraction] 46.7 % above high threshold See Below [facility] Work Phone: [phone] Comment on above: Reference Range: 36. 0 - 46.0 Hemoglobin (Bld) [Mass/Vol] 14.2 g/dL See Below [facility] Work Phone: [phone] Comment on above: Reference Range: 12. 0 - 16.0 Lymphocytes/100 WBC (Bld) 19.3 % See Below [employer] [facility] Work Phone: [phone] Comment on above: Reference Range: 13. 0 - 44.0 MCHC (RBC) [Mass/Vol] 30.4 g/dL below low threshold See Below [facility] Work Phone: [phone] Comment on above: Reference Range: 32. 0 - 36.0 MCV (RBC) [Entitic vol] 97 fL 80 - 100 -[facility] Work Phone: [phone] Monocytes/100 WBC (Bld) 9.3 % 2.0 - 10.0 -[facility] Work Phone: [phone] Neutrophils/100 WBC (Bld) 65.5 % See Below [facility] Work Phone: [phone] Comment on above: Reference Range: 40. 0 - 80.0 Platelets (Bld) [#/Vol] 352 10*3/uL 150 - 450 -[facility] Work Phone: [phone] RBC (Bld) [#/Vol] 4.80 {x10E12/L} See Below [facility] Work Phone: [phone] Comment on above: Reference Range: 4.0 0 - 5.20 WBC (Bld) [#/Vol] 10.5 10*3/uL 4.4 - 11.3 -[facility] Work Phone: [phone] Complete Blood Count + Differential 0.16 {x10E9/L} above high threshold See Below [facility] Work Phone: [phone] Comment on above: Reference Range: 0.0 0 - 0.10 Complete Blood Count + Differential 0.35 {x10E9/L} See Below [facility] Work Phone: [phone] Comment on above: Reference Range: 0.0 0 - 0.70 Complete Blood Count + Differential 0.97 {x10E9/L} See Below [facility] Work Phone: [phone] Comment on above: Reference Range: 0.1 0 - 1.00 Complete Blood Count + Differential 2.02 {x10E9/L} See Below [facility] Work Phone: [phone] Comment on above: Reference Range: 1.2 0 - 4.80 Complete Blood Count + Differential 6.84 {x10E9/L} See Below [facility] Work Phone: [phone] Comment on above: Reference Range: 1.2 0 - 7.70 Complete Blood Count + Differential 3.3 % 0.0 - 6.0 [facility] Work Phone: [phone] Complete Blood Count + Differential 1.1 % above high threshold 0.0 - 0.9 [facility] Work Phone: [phone] Comment on above: Immature Granulocyte Count (IG) includes promyelocytes, myelocytes and metamyelocytes but does not include bands. Percent differential counts (%) should be interpreted in the context of the absolute cell counts (cells/L). Complete Blood Count + Differential 0.0 {/100_WBC} 0.0-0.0 [facility] Work Phone: [phone] Creatinine, Serumon 10-30-19 21 Creatinine [Mass/Vol] 0.93 mg/dL See Below [facility] Work Phone: [phone] Comment on above: Reference Range: 0.5 0 - 1.05 Creatinine, Serum >60 >60 [facility] Work Phone: [phone] Comment on above: CALCULATIONS OF BRANDON MATED GFR ARE PERFORMED USING THE MDRD STUDY EQUATION FOR THE IDMS-TRACEABLE CREATININE METHODS. CLIN CHEM 2007;53:766-72 Laboratory - Chemistry and C hemistry - challengeon 10-29-2020 AST With P-5'-P [Catalytic activity/Vol] 15 U/L 9 - 39 [facility] Work Phone: [phone] Sedimentation Rate, Erythroc yteon 10-29-2020 ESR (Bld) [Velocity] Canceled [facility] Work Phone: [phone] Tobacco Screening.on 021 Fall risk assessment a) No falls within the last year -[facility] Work Phone: [phone] Tobacco use status CPHS b) No [facility] Work Phone: [phone] Laboratory - Chemistry and C hemistry - challengeon 08-31-2020 Anion gap [Moles/Vol] 13 mmol/L 10 - 20 - [facility] Work Phone: [phone] Calcium [Mass/Vol] 9.8 mg/dL 8.6 - 10.6 -[facility] Work Phone: [phone] Chloride [Moles/Vol] 106 mmol/L 98 - 107 [facility] Work Phone: [phone] CO2 [Moles/Vol] 28 mmol/L 21 - 32 -[facility] Work Phone: [phone] Creatinine [Mass/Vol] 1.06 mg/dL above high threshold See Below -[facility] Work Phone: [phone] Comment on above: Reference Range: 0.5 0 - 1.05 Glucose [Mass/Vol] 171 mg/dL above high threshold 74 - 99 -[facility] Work Phone: [phone] Potassium [Moles/Vol] 5.1 mmol/L 3.5 - 5.3 - [facility] Work Phone: [phone] Sodium [Moles/Vol] 142 mmol/L 136 - 145 -[facility] [employer] Work Phone: [phone] Urea nitrogen [Mass/Vol] 17 mg/dL 6 - 23 -[facility] [employer] Work Phone: [phone] Panel Informationon 08-31 67 {mL/min/1.73m2} >60 -[facility] [employer] Work Phone: Comment on above: CALCULATIONS OF BRANDON MATED GFR ARE PERFORMED USING THE MDRD STUDY EQUATION FOR THE IDMS-TRACEABLE CREATININE METHODS. CLIN CHEM 2007;53:766-72 55 {mL/min/1.73m2} Abnormal >60 -[facility] Work Phone: Hemoglobin A1Con 08-24-2020 Glucose [Mass/Vol] 134 mg/dL -Mildred rology -[facility] 5 Work Phone: HbA1c (Bld) [Mass fraction] 6.3 % -Neurology [place] [address] Work Phone: Comment on above: Diagnosis of Diabete s-Adults Non-Diabetic: < or = 5.6% Increased risk for developing diabetes: 5.7-6.4% Diagnostic of diabetes: > or = 6.5%. Monitoring of Diabetes Age (y) Therapeutic Goal (%) Adults: >18 <7.0 Pediatrics: 13-18 <7.5 7-12 <8.0 0- 6 7.5-8.5 [employer] [employer]. Diabetes Care 33(S1), Apr 2009. Laboratory - Chemistry and C hemistry - challengeon 08-24-2020 Albumin BCP dye [Mass/Vol] 4.1 g/dL 3.4 - 5.0 -[facility] 5 Work Phone: Albumin Ql (U) <7.0 See Below -Neurolo -[place] [address] Work Phone: Comment on above: Reference Range: Not Established Albumin/Creatinine DL <= 20 mg/L (U) [Mass ratio] SEE COMMENT 0.0 - 30.0 -[place] [address] Work Phone: Comment on above: One or more analytes used in this calculation is outside of the analytical measurement range.Calculation cannot be performed. ALP [Catalytic activity/Vol] 101 U/L 33 - 110 MG-[place] [address] Work Phone: ALT With P-5'-P [Catalytic activity/Vol] 12 U/L 7 - 45 [facility] [place] [facility] Work Phone: [phone] Comment on above: Patients treated wit h Sulfasalazine may generate falsely decreased results for ALT. Anion gap [Moles/Vol] 13 mmol/L 10 - 20 MG- Neurology -[facility] 5 Work Phone: [phone] AST With P-5'-P [Catalytic activity/Vol] 15 U/L 9 - 39 MG-Neurology -[place] [address] Work Phone: [phone] Bilirubin [Mass/Vol] 0.3 mg/dL 0.0 - 1.2 [facility] [address] Work Phone: [phone] Calcium [Mass/Vol] 9.9 mg/dL 8.6 - 10.6 MG-[place]ildred [place] [address] Work Phone: [phone] Chloride [Moles/Vol] 105 mmol/L 98 - 107 MG-N eurology -[place] [address] Work Phone: [phone] CO2 [Moles/Vol] 28 mmol/L 21 - 32 MG-Neurol ogy -[place] [address] Work Phone: [phone] Creatinine (U) [Mass/Vol] 104.0 mg/dL See Below -Neurology -[place] [address] Work Phone: [phone] Comment on above: Reference Range: 20. 0 - 320.0 Creatinine [Mass/Vol] 1.18 mg/dL above high threshold See Below MG-Neurology -[place] [address] Work Phone: [phone] Comment on above: Reference Range: 0.5 0 - 1.05 Glucose [Mass/Vol] 163 mg/dL above high threshold 74 - 99 MG-Neurology -[place] [address] Work Phone: [phone] Potassium [Moles/Vol] 5.5 mmol/L above high threshold 3.5 - 5.3 MG-Neurology -[place] [address] Work Phone: [phone] Protein [Mass/Vol] 6.6 g/dL 6.4 - 8.2 MG-Mildred [facility] [employer] 5 Work Phone: Sodium [Moles/Vol] 140 mmol/L 136 - 145 MG-Mildred [place] [address] Work Phone: Urea nitrogen [Mass/Vol] 19 mg/dL 6 - 23 MG-[place] [address] Work Phone: Lipid Panelon 08-24-2020 Cholesterol [Mass/Vol] 171 mg/dL 0 - 199 MG -[place] [address] Work Phone: Comment on above: . AGE [...] dosing. Cholesterol in HDL [Mass/Vol] 49.8 mg/dL MG-[facility] [employer] Work Phone: Comment on above: . AGE VERY LOW LOW N ORMAL HIGH 0-19 Y < 35 < 40 40-45 ---- 20-24 Y ---- < 40 >45 ---- >24 Y ---- < 40 40-60 >60. Cholesterol in LDL [Mass/Vol] 95 mg/dL 0 - 99 MG-[facility] [employer] Work Phone: Comment on above: . NEAR BORD AGE JOHNATHON RABLE OPTIMAL HIGH HIGH VERY HIGH 0-19 Y 0 - 109 --- 110-129 >/= 130 ---- 20-24 Y 0 - 119 --- 120-159 >/= 160 ---- >24 Y 0 - 99 100-129 130-159 160-189 >/=190. Cholesterol.total/Chol esterol in HDL [Mass ratio] 3.4 {ratio} [place] [address] Work Phone: Comment on above: REF VALUESDESIRABLE < 3.4HIGH RISK > 5.0 Triglyceride [Mass/Vol] 132 mg/dL 0 - 149 [place] [address] Work Phone: Comment on above: . AGE [...] Lipid Panel 26 mg/dL 0 - 40 [place] [address] Work Phone: No Panel Informationon 08-24 59 {mL/min/1.73m2} Abnormal >60 MG-[place] [address] Work Phone: Comment on above: CALCULATIONS OF BRANDON MATED GFR ARE PERFORMED USING THE MDRD STUDY EQUATION FOR THE IDMS-TRACEABLE CREATININE METHODS. CLIN CHEM 2007;53:766-72 49 {mL/min/1.73m2} Abnormal >60 MG-[place] [address] Work Phone: Vitamin D 25-Hydroxyon 08-24 25-hydroxyvitamin D3 [Mass/Vol] 11 ng/mL Abnormal [place] [address] Work Phone: Comment on above: .DEFICIENCY: < 20 NG /MLINSUFFICIENCY: 20-29 NG/MLSUFFICIENCY: 30-100 NG/MLTHIS ASSAY ACCURATELY QUANTIFIES THE SUM OFVITAMIN D3, 25-HYDROXY AND VIT D2,25-HYDROXY. Falls Risk Screeningon 08-05 Fall risk assessment a) No falls within the last year -Neurology -[facility] [place] Work Phone: DIGITAL DIAG MAMM RIGHT UNIL W/ TOMOon 05-11-2020 DIGITAL DIAG MAMM RIGHT UNIL W/ DALTON Patient Name: CHINA ORTIZ STUDY: DIGITAL DIAG MAMM RIGHT UNIL W/ DALTON; 05/11/2020 10:07 am ACCESSION NUMBER(S): [id number] ORDERING CLINICIAN: GISELLE BOYKIN INDICATION: right breast [...] any future breast imaging appointments, please call [phone] Patient letter sent SNORM Electronically signed by: ABDULLAHI HILL MD [facility] 05-11-2020 Breast screening Interpreted by: MOE HILL05/11/20 10:42MRN: [id number] Name: CHINA ORTIZ STUDY:DIGITAL DIAG MAMM RIGHT [...] any future breast imaging appointments, please call [phone]). Patient letter sent SNORM Electronically signed by: ABDULLAHI HILL 05/11/20 10:42 Normal [facility] [employer] Work Phone: Comment on above: ORDER REVISED TO A D IGITAL DIAG MAMM RIGHT UNIL W/ DALTON BY RADIOLOGIST; Original Order Number: [id number] Otheron 05-02-2020 EXAMINATION:X-ray bilateral feet.INDICATION: Bilateral foot pain.COMPARISON: NoneTECHNIQUE: 3 views bilateral feet.FINDINGS: Right Foot:Dorsal and plantar calcaneal spur formation. No fracture or dislocation.Soft tissues intact.Joint spaces are maintained. No radiopaque foreign body.Left Foot:Dorsal and plantar calcaneal spur formation. No fracture or dislocation.Soft tissues intact.Joint spaces are maintained. No radiopaque foreign body.IMPRESSION: No fracture or dislocation.Electronical ly signed by: Vasile Lim MD 05/02/2020 12:51 PM [employer] [id number]: ALDictated By: Maria Victoria LIM MD By: Maria Victoria LIM MD Out: 05/02/20 13:51:12 Normal [facility] [employer] Work Phone: Comment on above: Ordering Provider: Kayden Lange EXAMINATION:X-ray bilateral feet.INDICATION: Bilateral foot pain.COMPARISON: NoneTECHNIQUE: 3 views bilateral feet.FINDINGS: Right Foot:Dorsal and plantar calcaneal spur formation. No fracture or dislocation.Soft tissues intact.Joint spaces are maintained. No radiopaque foreign body.Left Foot:Dorsal and plantar calcaneal spur formation. No fracture or dislocation.Soft tissues intact.Joint spaces are maintained. No radiopaque foreign body.IMPRESSION: No fracture or dislocation.Electronical ly signed by: Vasile Lim MD 05/02/2020 12:51 PM CONSERVATION PLANNER [id number]: ALDictated By: Maria Victoria LIM MD By: Maria Victoria LIM MD Out: 05/02/20 13:51:12 Normal -[facility] [employer] Work Phone: [phone] Comment on above: Ordering Provider: Kayden Lange ALT - Alanine Aminotransfera se, Serumon 04-30-2020 ALT With P-5'-P [Catalytic activity/Vol] 10 U/L 7 - 45 -[facility] [employer] Work Phone: [phone] Comment on above: Patients treated wit h Sulfasalazine may generate falsely decreased results for ALT. Anti-dsDNA (Double Stranded) Antibodieson 04-30-2020 DNA double strand Ab Qn (S) [IU]/mL -[facility] [employer] Work Phone: [phone] Comment on above: REF VALUESNEGATIVE: <= 4 IU/MLEQUIVOCAL: 5- 9 IU/MLPOSITIVE: >=10 IU/ML Blood Urea Nitrogen, Serumon 04-30-2020 Urea nitrogen [Mass/Vol] 13 mg/dL 6 - 23 -[facility] [employer] Work Phone: [phone] Reactive Protein, Serumon 04-30-2020 CRP [Mass/Vol] 0.49 mg/dL -[facility] [employer] Work Phone: [phone] Comment on above: REF VALUE< 1.00 C3 Complement, Serumon 04-30 Complement C3 [Mass/Vol] 144 mg/dL 87 - 200 -[facility] [employer] Work Phone: [phone] C4 Complement, Serumon 04-30 Complement C4 [Mass/Vol] 69 mg/dL above high threshold 10 - 50 -[facility] [employer] Work Phone: [phone] Complete Blood Count + Diffe rentialon 04-30-2020 Basophils/100 WBC (Bld) 1.3 % 0.0 - 2.0 -[facility] [employer] Work Phone: [phone] Eosinophils (Bld) [#/Vol] 0.31 {x10E9/L} See Below -[facility] [employer] Work Phone: [phone] Comment on above: Reference Range: 0.0 0 - 0.70 Eosinophils/100 WBC (Bld) 2.9 % 0.0 - 6.0 [employer] [facility] [employer] Work Phone: [phone] Erythrocyte distribution width (RBC) [Ratio] 14.4 % See Below [employer] [facility] [employer] Work Phone: [phone] Comment on above: Reference Range: 11. 5 - 14.5 Hematocrit (Bld) [Volume fraction] 42.3 % See Below [employer] [facility] [employer] Work Phone: [phone] Comment on above: Reference Range: 36. 0 - 46.0 Hemoglobin (Bld) [Mass/Vol] 13.6 g/dL See Below [employer] [facility] [employer] Work Phone: [phone] Comment on above: Reference Range: 12. 0 - 16.0 Lymphocytes (Bld) [#/Vol] 2.41 {x10E9/L} See Below [employer] [facility] [employer] Work Phone: [phone] Comment on above: Reference Range: 1.2 0 - 4.80 Lymphocytes/100 WBC (Bld) 22.9 % See Below [employer] [facility] [employer] Work Phone: [phone] Comment on above: Reference Range: 13. 0 - 44.0 MCHC (RBC) [Mass/Vol] 32.2 g/dL See Below [employer] [facility] Work Phone: [phone] Comment on above: Reference Range: 32. 0 - 36.0 MCV (RBC) [Entitic vol] 95 fL 80 - 100 [employer] [facility] [employer] Work Phone: [phone] Monocytes (Bld) [#/Vol] 1.13 {x10E9/L} above high threshold See Below [employer] [facility] [employer] Work Phone: [phone] Comment on above: Reference Range: 0.1 0 - 1.00 Monocytes/100 WBC (Bld) 10.7 % 2.0 - 10.0 [employer] [facility] [employer] Work Phone: [phone] Neutrophils (Bld) [#/Vol] 6.47 {x10E9/L} See Below [employer] [facility] [employer] Work Phone: [phone] Comment on above: Reference Range: 1.2 0 - 7.70 Neutrophils/100 WBC (Bld) 61.5 % See Below [employer] [facility] [employer] Work Phone: [phone] Comment on above: Reference Range: 40. 0 - 80.0 Platelets (Bld) [#/Vol] 501 {x10E9/L} above high threshold 150 - 450 -[employer] [facility] [employer] Work Phone: [phone] RBC (Bld) [#/Vol] 4.47 {x10E12/L} See Below [employer] [facility] [employer] Work Phone: [phone] Comment on above: Reference Range: 4.0 0 - 5.20 WBC (Bld) [#/Vol] 0.0 {/100_WBC} 0.0-0.0 - [employer] [facility] [employer] Work Phone: [phone] WBC (Bld) [#/Vol] 10.5 {x10E9/L} 4.4 - 11.3 - [employer] [facility] [employer] Work Phone: [phone] Complete Blood Count + Differential 0.14 {x10E9/L} above high threshold See Below [employer] [facility] [employer] Work Phone: [phone] Comment on above: Reference Range: 0.0 0 - 0.10 Complete Blood Count + Differential 0.7 % 0.0 - 0.9 -[employer] [facility] [employer] Work Phone: [phone] Comment on above: Immature Granulocyte Count (IG) includes promyelocytes, myelocytes and metamyelocytes but does not include bands. Percent differential counts (%) should be interpreted in the context of the absolute cell counts (cells/L). Creatinine, Serumon 04-30-19 21 Creatinine [Mass/Vol] 0.89 mg/dL See Below [employer] [facility] [employer] Work Phone: Comment on above: Reference Range: 0.5 0 - 1.05 Creatinine [Mass/Vol] mg/dL >60 MP- [facility] [employer] Work Phone: Comment on above: CALCULATIONS OF BRANDON MATED GFR ARE PERFORMED USING THE MDRD STUDY EQUATION FOR THE IDMS-TRACEABLE CREATININE METHODS. CLIN CHEM 2007;53:766-72 Otheron 04-30-2020 AST With P-5'-P [Catalytic activity/Vol] 13 U/L 9 - 39 MP-[facility] [employer] Work Phone: Sedimentation Rate, Erythroc yteon 04-30-2020 ESR (Bld) [Velocity] 7 mm/h 0 - 20 MP-S [facility] [employer] Work Phone: DIGITAL MAMM SCREENING W/ TO [place] 04-15-2020 DIGITAL MAMM SCREENING W/ DALTON Patient Name: CHINA ORTIZ STUDY: DIGITAL MAMM SCREENING W/ DALTON; 04/15/2020 11:32 am ACCESSION NUMBER(S): [id number] ORDERING CLINICIAN: GISELLE BOYKIN INDICATION: Screening. New [...] any future breast imaging appointments, please call [phone] Patient letter sent SADEVAL Electronically signed by: ZAMZAM HUMPHREY MD [facility] Mamm - Screening Mammogram w / Tomosynthesison 04-15-2020 MG Breast screening Interpreted by: ZAMZAM HUMPHREY04/16/20 13:23MRN: [id number] Name: CHINA ORTIZ STUDY:DIGITAL MAMM SCREENING W/ [...] Need Additional Imaging Evaluation and/orPrior Mammograms for Comparison.Recommendatio n: Additional views and possible ultrasound. For any future breast imaging appointments, please call [phone]). Patient letter sent SADEVAL Electronically signed by: ZAMZAM HUMPHREY 04/16/20 13:23 [facility] Work Phone: Comment on above: ORDER REVISED TO A D IGITAL MAMM SCREENING W/ DALTON BY RADIOLOGIST; Original Order Number: [id number] Glucose,Bedsideon 12-04-2019 Glucose [Mass/Vol] 155 mg/dL High 70-100 [facility] Comment on above: Result Comment: Test performed by glucose meter. Results may be 10%-15% lower than serum/plasma values. (CLIA ID [id number]) Performed By: #### B GLU #### [facility] [employer] [facility] [address] [place] [address] Glucose [Mass/Vol] 106 mg/dL High 70-100 [facility] Comment on above: Result Comment: Test performed by glucose meter. Results may be 10%-15% lower than serum/plasma values. (CLIA ID [id number]) Performed By: #### B GLU #### [facility] [employer] [facility] [address] [place] [address] POCT Glucoseon 12-04-2019 Glucose [Mass/Vol] 155 mg/dL High 70 - 100 mg/dL [facility], [place] Comment on above: Test performed by gl ucose meter. Results may be 10%-15% lower than serum/plasma values. (CLIA ID [id number]) Interpretation and review of laboratory results Abnormal [facility], [place] Test Performed by [facility], [address] [place], [place] [address] [facility], [place] Glucose [Mass/Vol] 106 mg/dL High 70 - 100 mg/dL [facility], [place] Comment on above: Test performed by gl ucose meter. Results may be 10%-15% lower than serum/plasma values. (CLIA ID [id number]) Interpretation and review of laboratory results Abnormal [facility] [place], [place] Test Performed by [facility], [address] [place], [place] [address] [facility], [place] Glucose,Bedsideon 12-03-2019 Glucose [Mass/Vol] 135 mg/dL High 70-100 [facility] Comment on above: Result Comment: Test performed by glucose meter. Results may be 10%-15% lower than serum/plasma values. (CLIA ID [id number]) Performed By: #### B GLU #### [facility] [address] [place] [address] Glucose [Mass/Vol] 140 mg/dL High 70-100 [facility] Comment on above: Result Comment: Test performed by glucose meter. Results may be 10%-15% lower than serum/plasma values. (CLIA ID [id number]) Performed By: #### B GLU #### [facility] [address] [place] [address] Glucose [Mass/Vol] 107 mg/dL High 70-100 [facility] Comment on above: Result Comment: Test performed by glucose meter. Results may be 10%-15% lower than serum/plasma values. (CLIA ID [id number]) Performed By: #### B GLU #### [employer] [facility] [address] [place] [address] HCG,Urine Qualon 12-03-2019 Beta HCG ( test) Ql (U) Negative Normal Negative [facility] Comment on above: Result Comment: Preg padmaja is the most common reason for HCG in urine, although choriocarcinoma, hydatidiform mole, and certain nontropho- blastic malignancies also result in detectable urinary HCG levels. Sensitivity = 20mIU/mL. Performed By: #### H CGUR #### [facility] [address] [place] [address] Op Noteon 12-03-2019 Op Note PATIENT: SHELBY ORTIZ ADMISSION DATE: 12/03/2019 SURGERY DATE: 12/03/2019 DATE [...] did receive antibiotics preoperatively. [employer] Job ID: [id number] Rene Gaines MD DOD:12/03/2019 05:19 P LILYW/michelle DOT:12/03/2019 07:51 P Job Number: [id number] Document Number: [id number] [facility] Op Note Date: 12/03/2019 PreOp Dx: [...] as planned. 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 Please see Dr. Ganies's note. [facility] POCT Glucoseon 12-03-2019 Glucose [Mass/Vol] 135 mg/dL High 70 - 100 mg/dL [facility] [employer] [place], [place] Comment on above: Test performed by gl ucose meter. Results may be 10%-15% lower than serum/plasma values. (CLIA ID [id number]) Interpretation and review of laboratory results Abnormal [facility] [place] Test Performed by [facility], [address] [place], [place] [address] [facility] [employer] [place], [place] Glucose [Mass/Vol] 140 mg/dL High 70 - 100 mg/dL [facility] [employer] [place], [place] Comment on above: Test performed by gl ucose meter. Results may be 10%-15% lower than serum/plasma values. (CLIA ID [id number]) Interpretation and review of laboratory results Abnormal [facility] [place] Test Performed by [facility], [address], [place], [place] [address] [place] [address] [employer] [place], [place] Glucose [Mass/Vol] 107 mg/dL High 70 - 100 mg/dL [facility] [employer] [place], [place] Comment on above: Test performed by gl ucose meter. Results may be 10%-15% lower than serum/plasma values. (CLIA ID [id number]) Interpretation and review of laboratory results Abnormal [facility] [place] Test Performed by [facility], [address] [place], [place], [place] [address] [place] [address] , urineon 0 Beta HCG ( test) Ql (U) Negative Negative NA [facility] [employer] [place], [place] Comment on above: is the mos t common reason for HCG in urine, although choriocarcinoma, hydatidiform mole, and certain nontropho- blastic malignancies also result in detectable urinary HCG levels. Sensitivity = 20mIU/mL. Test Performed by [facility], [address] [place], [place] [address] [place], [place] Surgical Pathologyon 020 Surgical Pathology [id number] [facility] PATHOLOGY AND LABORATORY MEDICINE [address] [place] [address] Fax - FINAL SURGICAL PATHOLOGY REPORT NAME: CHINA ORTIZ : 1970 49 Y F KENIA NO.: [id number] LOCATION: [facility] 156 1 PROCEDURE 12/03/2019 DATE: SURGEON: LUIS [...] SIMPLE CYSTS AND CYSTIC FOLLICLES. SMT/SMT Signature> Hira REECE M.D. CLINICAL INFORMATION: Abnormal uterine bleeding [...] transection a pinpoint lumen is identified. Multiple contracts representative sections are submitted in ten cassettes [...] characteristics determined by the clinical laboratories of [facility]. They have not been cleared by [...] negativity on decalcified specimens. Case reviewed at [place] [address] [place] [address]. DEPARTMENT OF PATHOLOGY AND LABORATORY MEDICINE [place], [place] [address] Normal [facility] Basic Metabolic Panelon 11-01 Anion gap [Moles/Vol] 8 Normal [facility] Comment on above: Performed By: #### BRANDON GARCIA3 #### [facility] [address] [place] [address] Calcium [Mass/Vol] 9.1 mg/dL Normal 8.4-10.4 [facility] Comment on above: Performed By: #### BRANDON GARCIA3 #### [facility] [address] [place] [address] CO2 [Moles/Vol] 23 mmol/L Normal 22-30 [facility] Comment on above: Performed By: #### BRANDON GARCIA3 #### [facility] [address] [place] [address] Glucose [Mass/Vol] 95 mg/dL Normal 70-100 [facility] Comment on above: Performed By: #### BRANDON GARCIA3 #### [facility] [address] [place] [address] Urea nitrogen [Mass/Vol] 12 mg/dL Normal 7-20 [facility] Comment on above: Performed By: #### Jassi FRANKLIN BMP3 #### [facility] [address] [place] [address] Creatinine [Mass/Vol] 0.88 mg/dL Normal 0.52-1.25 [facility] Comment on above: Performed By: #### H BRANDON FRANKLIN3 #### [facility] [address] [place] [address] GFR/1.73 sq M predicted among blacks MDRD (S/P/Bld) [Vol rate/Area] mL/min/{1.73_m2} Normal >60 [facility] Comment on above: Performed By: #### H NOEMI BMP3 #### [facility] [address] [place] [address] GFR/1.73 sq M predicted among non-blacks MDRD (S/P/Bld) [Vol rate/Area] 77.8 mL/min/{1.73_m2} Normal >60 [facility] Comment on above: Result Comment: KDIG [...] renal tubular creatinine secretion. Performed By: #### BRANDON GARCIA3 #### [facility] [address] [place] [address] Chloride [Moles/Vol] 107 mmol/L Normal 98-107 [facility] Comment on above: Performed By: #### H NOEMI BMP3 #### [facility] [address] [place] [address] Potassium [Moles/Vol] 5.0 mmol/L Normal 3.5-5.1 [facility] Comment on above: Performed By: #### H NOEMI BMP3 #### [facility] [address] [place] [address] Sodium [Moles/Vol] 138 mmol/L Normal 135-145 [facility] Comment on above: Performed By: #### H JUDD, BMP3 #### [facility] [address] [place] [address] Anion gap [Moles/Vol] 8 mmol/L [place], [place] Calcium [Mass/Vol] 9.1 mg/dL 8.4 - 10. 4 mg/dL [place], [place] Chloride [Moles/Vol] 107 mmol/L 98 - 10 7 mmol/L [place] CO2 [Moles/Vol] 23 mmol/L 22 - 30 mmol/L [place] Creatinine [Mass/Vol] 0.88 mg/dL 0.52 - 1.25 mg/dL [place], [place] EGFR IF NonAfrican Filipino 77.8 mL/min >60 [place], [place] Comment on above: KDIGO guidelines pro [...] MDRD (S/P/Bld) [Vol rate/Area] mL/min/{1.73_m2} >60 mL/min [place] Glucose [Mass/Vol] 95 mg/dL 70 - 100 mg/dL [place] Potassium [Moles/Vol] 5.0 mmol/L 3.5 - 5.1 mmol/L [place] Sodium [Moles/Vol] 138 mmol/L 135 - 145 mmol/L [place] Urea nitrogen [Mass/Vol] 12 mg/dL 7 - 20 mg/dL [place], [place] Test Performed by [facility], [address] [place] [address] [place], [place] CBCon 11-26-2019 Erythrocyte distribution width (RBC) [Ratio] 16.4 % High 11.5 - 14.5 % [place], [place] Hematocrit (Bld) [Volume fraction] 41.5 % 35 - 47 % [place], [place] Hemoglobin (Bld) [Mass/Vol] 13.2 g/dL 11.7 - 16 g/dL [place], [place] Interpretation and review of laboratory results Abnormal [place] MCH (RBC) [Entitic mass] 28.2 pg 26 - 34 pg [place], [place] MCHC (RBC) [Mass/Vol] 31.9 % Low 32 - 36 % [place] MCV (RBC) [Entitic vol] 88.3 fL 79 - 98 fL [place] Platelet mean volume (Bld) [Entitic vol] 8.4 fL 7.4 - 10.4 fL [place] Platelets (Bld) [#/Vol] 490 10*3/uL High 140 - 440 10*3/uL [place] RBC (Bld) [#/Vol] 4.69 10*6/uL 3.8 - 5.2 10*6/uL [place] WBC (Bld) [#/Vol] 10.5 10*3/uL 3.6 - 10.7 10*3/uL [place] Test Performed by [facility], [address] [place], [place] [address] [place] Hemogramon 11-26-2019 Erythrocyte distribution width (RBC) [Ratio] 16.4 % High 11.5-14.5 [facility] Comment on above: Performed By: #### H KACY FRANKLIN #### [facility] [address] [place] [address] Hematocrit (Bld) [Volume fraction] 41.5 % Normal 35.0-47.0 [facility] Comment on above: Performed By: #### H EMOG, BMP3 #### [facility] [address] [place] [address] Hemoglobin (Bld) [Mass/Vol] 13.2 g/dL Normal 11.7-16.0 [facility] Comment on above: Performed By: #### H EMOG, BMP3 #### [facility] [address] [place] [address] MCH (RBC) [Entitic mass] 28.2 pg Normal 26.0-34.0 [facility] Comment on above: Performed By: #### H EMOG, BMP3 #### [facility] [address] [place] [address] MCHC (RBC) [Mass/Vol] 31.9 % Low 32.0-36.0 [facility] Comment on above: Performed By: #### H EMOG, BMP3 #### [facility] [address] [place] [address] MCV (RBC) [Entitic vol] 88.3 fL Normal 79.0-98.0 [facility] Comment on above: Performed By: #### H EMOG, BMP3 #### [facility] [address] [place] [address] Platelet mean volume (Bld) [Entitic vol] 8.4 fL Normal 7.4-10.4 [facility] Comment on above: Performed By: #### H EMOG, BMP3 #### [facility] [address] [place] [address] Platelets (Bld) [#/Vol] 490 10*3/uL High 140-440 [facility] Comment on above: Performed By: #### H EMOG, BMP3 #### [facility] [address] [place] [address] RBC (Bld) [#/Vol] 4.69 10*6/uL Normal 3.80-5.20 [facility] Comment on above: Performed By: #### H EMOG, BMP3 #### [facility] [address] [place] [address] WBC (Bld) [#/Vol] 10.5 10*3/uL Normal 3.6-10.7 [facility] Comment on above: Performed By: #### H EMOG, BMP3 #### [facility] [address] [place] [address] TS GELon 11-26-2019 TS GEL ABO Group: O Rh, Gel: POS Antibody Screen Gel: NEG Normal [facility] Comment on above: Performed By: #### T SGL #### [facility] [address] [place] [address] [facility] TYPE AND SCREENon 11-26-2019 Sodium [Moles/Vol] Positive [facility] [place], [place] Sodium [Moles/Vol] O [facility] [place] Sodium [Moles/Vol] Negative [facility] [place] Test Performed by [facility], [address] [place], [place] [address] [facility] [place] Glucose,Bedsideon 12-24-2018 Glucose [Mass/Vol] 151 mg/dL High 70-100 [facility] Comment on above: Result Comment: Test performed by glucose meter. Results may be 10%-15% lower than serum/plasma values. (CLIA ID [id number]) Performed By: #### B GLU #### [facility] [address] [place] [address] Glucose [Mass/Vol] 128 mg/dL High 70-100 [facility] Comment on above: Result Comment: Test performed by glucose meter. Results may be 10%-15% lower than serum/plasma values. (CLIA ID [id number]) Performed By: #### B GLU #### [facility] [address] [place] [address] HCG,Urine Qualon 12-24-2018 Beta HCG ( test) Ql (U) Negative Normal Negative [facility] Comment on above: Result Comment: Preg padmaja is the most common reason for HCG in urine, although choriocarcinoma, hydatidiform mole, and certain nontropho- blastic malignancies also result in detectable urinary HCG levels. Sensitivity = 20mIU/mL. Performed By: #### H CGUR #### [facility] [address] [place] [address] POCT Glucoseon 12-24-2018 Glucose [Mass/Vol] 151 mg/dL High 70 - 100 mg/dL [place] Comment on above: Test performed by ucose meter. Results may be 10%-15% lower than serum/plasma values. (CLIA ID [id number]) Interpretation and review of laboratory results Abnormal [place] Test Performed by [facility], [address] , [address] Glucose [Mass/Vol] 128 mg/dL High 70 - 100 mg/dL [place] Comment on above: Test performed by ucose meter. Results may be 10%-15% lower than serum/plasma values. (CLIA ID [id number]) Interpretation and review of laboratory results Abnormal [place] Test Performed by [facility], [address] , [address] , urineon 9 Beta HCG ( test) Ql (U) Negative Negative NA [place] Comment on above: is the mos t common reason for HCG in urine, although choriocarcinoma, hydatidiform mole, and certain nontropho- blastic malignancies also result in detectable urinary HCG levels. Sensitivity = 20mIU/mL. Test Performed by [facility], [address] , [address] Surgical Pathologyon 019 Surgical Pathology [id number] [facility] PATHOLOGY AND LABORATORY MEDICINE [address] [place] [address] [phone] Fax - FINAL SURGICAL PATHOLOGY REPORT NAME: FRANCISCOCHINA BRICEÑO Kayden : 1970 48 Y F BILLING NO.: [id number] LOCATION: [facility] SDS 01 PROCEDURE 12/24/2018 DATE: SURGEON: LUCRECIA REICH M.D. [...] areas of hemorrhage or friability are identified. Plaster Molder sections are submitted in a single cassette. (bits ss, 1) JCK/JAF Disclaimer: The following statement applies to all immunohistochemistry, in situ hybridization, molecular studies, and immunofluorescence testing. The use of one or more reagents in the above tests is regulated as an analyte specific reagent (ASR). These tests were developed and their performance characteristics determined by the clinical laboratories of [facility]. They have not been cleared by [...] negativity on decalcified specimens. Case reviewed at [place] [address] [place] [address]. DEPARTMENT OF PATHOLOGY AND LABORATORY MEDICINE [place], [place] [address] Normal [facility] Basic Metabolic Panelon 12-01 Anion gap [Moles/Vol] 7 mmol/L [place] Calcium [Mass/Vol] 8.8 mg/dL 8.4 - 10. 4 mg/dL [place] Chloride [Moles/Vol] 106 mmol/L 98 - 10 7 mmol/L [place] CO2 [Moles/Vol] 24 mmol/L 22 - 30 mmol/L [place] Creatinine [Mass/Vol] 0.76 mg/dL 0.52 - 1.25 mg/dL [place] EGFR IF NonAfrican Filipino >60.0 >60 mL/min [place] Comment on above: Source- MDRD equatio n with creatinine calibration to IDMS(NKDEP) eGFR not recommended for drug dose adjustment GFR/1.73 sq M predicted among blacks MDRD (S/P/Bld) [Vol rate/Area] mL/min/{1.73_m2} >60 mL/min [place] Glucose [Mass/Vol] 108 mg/dL High 70 - 100 mg/dL [place] Interpretation and review of laboratory results Abnormal [place] Potassium [Moles/Vol] 5.0 mmol/L 3.5 - 5.1 mmol/L [place] Sodium [Moles/Vol] 137 mmol/L 135 - 145 mmol/L [place] Urea nitrogen [Mass/Vol] 14 mg/dL 7 - 20 mg/dL [place] Test Performed by [facility], [address], [place], [place] [address] specimen slighltly hemolyzed [place] CBCon 12-16-2018 Erythrocyte distribution width (RBC) [Ratio] 14.2 % 11.5 - 14.5 % [place] Hematocrit (Bld) [Volume fraction] 40.0 % 35 - 47 % [place] Hemoglobin (Bld) [Mass/Vol] 13.2 g/dL 11.7 - 16 g/dL [place] Interpretation and review of laboratory results Abnormal [place] MCH (RBC) [Entitic mass] 30.2 pg 26 - 34 pg [place] MCHC (RBC) [Mass/Vol] 33.0 % 32 - 36 % [place] MCV (RBC) [Entitic vol] 91.3 fL 79 - 98 fL [place] Platelet mean volume (Bld) [Entitic vol] 8.1 fL 7.4 - 10.4 fL [place] Platelets (Bld) [#/Vol] 591 10*3/uL High 140 - 440 10*3/uL [place] RBC (Bld) [#/Vol] 4.38 10*6/uL 3.8 - 5.2 10*6/uL [place] WBC (Bld) [#/Vol] 14.1 10*3/uL High 3.6 - 10.7 10*3/uL [place] Test Performed by [facility], [address] [place] [id number] [place] [address] CT Abdomen Pelvis W Contrast on 11-14-2018 Patient Name: CHINA ORTIZ ---CT--- Exam Date/Time 11/14/2018 11:30:[address] Abdomen/Pelvis w/ IV Contrast (IV Onl Ordering Physician PARAS WEAVER RYAN C Accession Number [id number] CPT4 Codes 78609 (CT Abdomen/Pelvis w/ IV Contrast (IV Onl), Q9967 (CT ISOVUE 370MG/ML&[id number]&ML& 1) Reason For Exam recurrent incisional hernia Report [...] R Transcribed Date and Time: 11/14/2018 2:54 [place], [place], [facility] - 11/14/2018 2:55 PM EDT Patient Name: CHINA ORTIZ ---CT--- Exam Date/Time 11/14/2018 11:30:[address] Abdomen/Pelvis w/ IV Contrast (IV Onl Ordering Physician PARAS WEAVERROXANNA Accession Number [id number] CPT4 Codes 61141 (CT Abdomen/Pelvis w/ IV Contrast (IV Onl), Q9967 (CT ISOVUE 370MG/ML&[id number]&ML& 1) Reason For Exam recurrent incisional hernia Report [...] These appear similar to the study from 2016. The gallbladder has been removed. The pancreatic tail and spleen have been resected. There are lobulated enhancing soft tissue densities within the left upper quadrant of the abdomen which are similar to the study from 2016 likely representing residual splenules. The adrenal glands [...] R Transcribed Date and Time: 11/14/2018 2:54 [place] Creatinine, Serumon 11-12-19 Creatinine [Mass/Vol] 0.85 mg/dL 0.52 - 1.25 mg/dL [place] EGFR IF NonAfrican Filipino >60.0 >60 mL/min [place] Comment on above: Source- MDRD equatio n with creatinine calibration to IDMS(NKDEP) eGFR not recommended for drug dose adjustment GFR/1.73 sq M predicted among blacks MDRD (S/P/Bld) [Vol rate/Area] mL/min/{1.73_m2} >60 mL/min [place] Test Performed by [facility], [address] [place] [address] , [address] Vital Signs Date Time Vital Sign Value Performing Clinician Facility 10-19-2024 19:00-0400 Body temperature 99.3 [degF] Dr. Giselle Boykin MD Work Phone: [facility] 10-19-2024 19:00-0400 Diastolic blood pressure 72 mm[Hg] Dr. Giselle Boykin MD Work Phone: [facility] 10-19-2024 19:00-0400 Heart rate 92 /min Dr. Giselle Boykin MD Work Phone: [facility] 10-19-2024 19:00-0400 Respiratory rate 24 /min Dr. Giselle Boykin MD Work Phone: [facility] 10-19-2024 19:00-0400 SaO2% (BldA) [Mass fraction] 97 % Dr. Giselle Boykin MD Work Phone: [facility] 10-19-2024 19:00-0400 Systolic blood pressure 118 mm[Hg] Dr. Giselle Boykin MD Work Phone: [facility] 10-19-2024 15:56-0400 Body mass index (BMI) [Ratio] 34.8 kg/m2 Dr. Giselle Boykin MD Work Phone: [facility] 10-19-2024 15:56-0400 Body weight [address] Giselle Boykin MD Work Phone: [facility] 10-19-2024 15:34-0400 Body height 162.[address] Giselle Boykin MD Work Phone: [facility] 10-09-2024 09:44-0400 Body height 157.[address] 10-09-2024 09:44-0400 Body mass index (BMI) [Ratio] 34.75 kg/m2 [address] 10-09-2024 09:44-0400 Body weight 86.[address] 08-19-2024 14:18-0400 Body height 157.5 cm Giselle Boykin MD Work Phone: [facility] 08-19-2024 14:18-0400 Body mass index (BMI) [Ratio] 34.88 kg/m2 Giselle Boykin MD Work Phone: [facility] 08-19-2024 14:18-0400 Body temperature 97 [degF] Giselle Boykin MD Work Phone: [facility] 08-19-2024 14:18-0400 Body weight 86.5 kg Giselle Boykin MD Work Phone: [facility] 08-19-2024 14:18-0400 Diastolic blood pressure 90 mm[Hg] Giselle Boykin MD Work Phone: [facility] 08-19-2024 14:18-0400 Heart rate 68 /min Giselle Boykin MD Work Phone: [facility] 08-19-2024 14:18-0400 SaO2% (BldA) [Mass fraction] 97 % Giselle Boykin MD Work Phone: [facility] 08-19-2024 14:18-0400 Systolic blood pressure 111 mm[Hg] Giselle Boykin MD Work Phone: [facility] 05-07-2024 10:49-0500 Body height 157.5 cm Giselle Boykin MD Work Phone: [facility] 05-07-2024 10:49-0500 Body mass index (BMI) [Ratio] 35.12 kg/m2 Giselle Boykin MD Work Phone: [facility] 05-07-2024 10:49-0500 Body temperature 97.3 [degF] Giselle Boykin MD Work Phone: [facility] 05-07-2024 10:49-0500 Body weight 87.1 kg Giselle Boykin MD Work Phone: [facility] 05-07-2024 10:49-0500 Diastolic blood pressure 81 mm[Hg] Giselle Boykin MD Work Phone: [facility] 05-07-2024 10:49-0500 Heart rate 78 /min Giselle Boykin MD Work Phone: [facility] 05-07-2024 10:49-0500 SaO2% (BldA) [Mass fraction] 99 % Giselle Boykin MD Work Phone: [facility] 05-07-2024 10:49-0500 Systolic blood pressure 102 mm[Hg] Giselle Boykin MD Work Phone: [facility] 05-07-2024 10:44-0500 Body height 157.5 cm Maura Lange MD Work Phone: [facility] 05-07-2024 10:44-0500 Body mass index (BMI) [Ratio] 35.14 kg/m2 Maura Lange MD Work Phone: [facility] 05-07-2024 10:44-0500 Body temperature 97.3 [degF] Maura Lange MD Work Phone: [facility] 05-07-2024 10:44-0500 Body weight 87.14 kg Maura Lange MD Work Phone: [facility] 05-07-2024 10:44-0500 Diastolic blood pressure 81 mm[Hg] Maura Lange MD Work Phone: [facility] 05-07-2024 10:44-0500 Heart rate 78 /min Maura Lange MD Work Phone: [facility] 05-07-2024 10:44-0500 SaO2% (BldA) [Mass fraction] 99 % Marua Lange MD Work Phone: [facility] 05-07-2024 10:44-0500 Systolic blood pressure 102 mm[Hg] Maura Lange MD Work Phone: [facility] 04-29-2024 14:27-0500 Body mass index (BMI) [Ratio] 36.58 kg/m2 Stephanie Wilder [employer] Work Phone: [facility] 04-29-2024 14:27-0500 Body temperature 98.6 [degF] Stephanie Wilder [employer] Work Phone: [facility] 04-29-2024 14:27-0500 Body weight 90.72 kg Stephanie Wilder [employer] Work Phone: [facility] 04-29-2024 14:27-0500 Diastolic blood pressure 80 mm[Hg] Stephanie Monsivaiser [employer] Work Phone: [facility] 04-29-2024 14:27-0500 Heart rate 95 /min Stephanie Tina [employer] Work Phone: [facility] 04-29-2024 14:27-0500 Respiratory rate 18 /min Stephanie Wilder [employer] Work Phone: [facility] 04-29-2024 14:27-0500 SaO2% (BldA) [Mass fraction] 97 % Stephanie Tina [employer] Work Phone: [facility] 04-29-2024 14:27-0500 Systolic blood pressure 112 mm[Hg] Stephanie Tina [employer] Work Phone: [facility] 03-20-2024 10:26-0500 Body height 157.5 cm Giselle Boykin MD Work Phone: [facility] 03-20-2024 10:26-0500 Body mass index (BMI) [Ratio] 36.85 kg/m2 Giselle Boykin MD Work Phone: [facility] 03-20-2024 10:26-0500 Body temperature 97.2 [degF] Giselle Boykin MD Work Phone: [facility] 03-20-2024 10:26-0500 Body weight 91.4 kg Giselle Boykin MD Work Phone: [facility] 03-20-2024 10:26-0500 Diastolic blood pressure 99 mm[Hg] Giselle Boykin MD Work Phone: [facility] 03-20-2024 10:26-0500 Heart rate 74 /min Giselle Boykin MD Work Phone: [facility] 03-20-2024 10:26-0500 SaO2% (BldA) [Mass fraction] 98 % Giselle Boykin MD Work Phone: [facility] 03-20-2024 10:26-0500 Systolic blood pressure 143 mm[Hg] Giselle Boykin MD Work Phone: [facility] 11-27-2023 11:28-0400 Body height 157.5 cm Yasmine Lopez [employer] Work Phone: [facility] 11-27-2023 11:28-0400 Body mass index (BMI) [Ratio] 36.62 kg/m2 Yasmine Lopez [employer] Work Phone: [facility] 11-27-2023 11:28-0400 Body temperature 97.2 [degF] Yasmine Lopez [employer] Work Phone: [facility] 11-27-2023 11:28-0400 Body weight 90.81 kg Yasmine Lopez [employer] Work Phone: [facility] 11-27-2023 11:28-0400 Diastolic blood pressure 111 mm[Hg] Yasmine Lopez [employer] Work Phone: [facility] 11-27-2023 11:28-0400 Heart rate 81 /min Yasmine Lopez [employer] Work Phone: [facility] 11-27-2023 11:28-0400 SaO2% (BldA) [Mass fraction] 95 % Yasmine Lopez [employer] Work Phone: [facility] 11-27-2023 11:28-0400 Systolic blood pressure 152 mm[Hg] Yasmine Lopez [employer] Work Phone: [facility] 11-15-2023 00:46-0400 Diastolic Blood Pressure Non-Invasive 90 mm[Hg] HARSH CEDILLO DO [facility] 11-15-2023 00:46-0400 Heart rate 76 /min HARSH CEDILLO DO [facility] 11-15-2023 00:46-0400 Respiratory rate 20 /min HARSH CEDILLO DO [facility] 11-15-2023 00:46-0400 Systolic Blood Pressure Non-Invasive 143 mm[Hg] HARSH CEDILLO DO [facility] 11-14-2023 21:48-0400 Diastolic Blood Pressure Non-Invasive 99 mm[Hg] HARSH CEDILLO DO [facility] 11-14-2023 21:48-0400 Heart rate 72 /min HARSH CEDILLO DO [facility] 11-14-2023 21:48-0400 Respiratory rate 18 /min HARSH CEDILLO DO [facility] 11-14-2023 21:48-0400 Systolic Blood Pressure Non-Invasive 179 mm[Hg] HARSH CEDILLO DO [facility] 11-14-2023 20:18-0400 Diastolic Blood Pressure Non-Invasive 92 mm[Hg] HARSH CEDILLO DO [facility] 11-14-2023 20:18-0400 Heart rate 70 /min HARSH CEDILLO DO [facility] 11-14-2023 20:18-0400 Respiratory rate 16 /min HARSH CEDILLO DO [facility] 11-14-2023 20:18-0400 Systolic Blood Pressure Non-Invasive 158 mm[Hg] HARSH CEDILLO DO [facility] 11-14-2023 18:42-0400 Body temperature 98.06 [degF] HARSH CEDILLO DO [facility] 11-14-2023 18:42-0400 Body weight 89.4 kg HARSH CEDILLO DO [facility] 11-14-2023 18:42-0400 Heart rate 80 /min HARSH CEDILLO DO [facility] 10-02-2023 16:00-0400 Heart rate 65 /min MAXINE BLAIR MD [facility] 10-02-2023 15:42-0400 Blood Pressure Cuff Size MAXINE BLAIR MD [facility] 10-02-2023 15:42-0400 Blood Pressure Location MAXINE BLAIR MD [facility] 10-02-2023 15:42-0400 Blood Pressure Method MAXINE BLAIR MD [facility] 10-02-2023 15:42-0400 Body temperature 97.88 [degF] MAXINE BLAIR MD [facility] 10-02-2023 15:42-0400 Diastolic Blood Pressure Non-Invasive 80 mm[Hg] MAXINE BLAIR MD [address] 10-02-2023 15:42-0400 Heart rate 67 /min MAXINE BLAIR MD [address] [place] [id number] 10-02-2023 15:42-0400 Reason For Taking VItal Signs MAXINE BLAIR MD [address] [place] [address] 10-02-2023 15:42-0400 Respiratory rate 16 /min MAXINE BLAIR MD [address] [place] [address] 10-02-2023 15:42-0400 Systolic Blood Pressure Non-Invasive 138 mm[Hg] MAXINE BLAIR MD [address] [place] [address] 10-02-2023 14:59-0400 Heart rate 66 /min MAXINE BLAIR MD [address] [place] [address] 10-02-2023 10:24-0400 Heart rate 67 /min MAXINE BLAIR MD [address] [place] [address] 10-02-2023 09:47-0400 Blood Pressure Cuff Size MAXINE BLAIR MD [address] [place] [address] 10-02-2023 09:47-0400 Blood Pressure Location MAXINE BLAIR MD [address] [place] [address] 10-02-2023 09:47-0400 Blood Pressure Method MAXINE BLAIR MD [address] [place] [address] 10-02-2023 09:47-0400 Body temperature 98.06 [degF] MAXINE BLAIR MD [address] [place] [address] 10-02-2023 09:47-0400 Diastolic Blood Pressure Non-Invasive 89 mm[Hg] MAXINE BLAIR MD [address] [place] [address] 10-02-2023 09:47-0400 Mean blood pressure 100 mm[Hg] MAXINE BLAIR MD [address] [place] [address] 10-02-2023 09:47-0400 Respiratory rate 18 /min MAXINE BLAIR MD [address] [place] [address] 10-02-2023 09:47-0400 Systolic Blood Pressure Non-Invasive 138 mm[Hg] MAXINE BLAIR MD [address] [place] [address] 10-02-2023 04:50-0400 Body weight 90.2 kg MAXINE BLAIR MD [address] 10-02-2023 04:39-0400 Blood Pressure Cuff Size MAXINE BLAIR MD [address] [place] [address] 10-02-2023 04:39-0400 Blood Pressure Location MAXINE BLAIR MD [address] [place] [address] 10-02-2023 04:39-0400 Blood Pressure Method MAXINE BLAIR MD [address] [place] [address] 10-02-2023 04:39-0400 Body temperature 98.24 [degF] MAXINE BLAIR MD [address] [place] [address] 10-02-2023 04:39-0400 Diastolic Blood Pressure Non-Invasive 78 mm[Hg] MAXINE BLAIR MD [address] [place] [address] 10-02-2023 04:39-0400 Respiratory rate 17 /min MAXINE BLAIR MD [address] [place] [address] 10-02-2023 04:39-0400 Systolic Blood Pressure Non-Invasive 139 mm[Hg] MAXINE BLAIR MD [address] [place] [address] 10-01-2023 22:11-0400 Heart rate 68 /min MAXINE BLAIR MD [address] [place] [address] 10-01-2023 22:11-0400 Heart rate 77 /min MAXINE BLAIR MD [address] [place] [address] 10-01-2023 08:51-0400 Heart rate 71 /min MAXINE BLAIR MD [address] [place] [address] 09-30-2023 22:00-0400 Heart rate 72 /min MAXINE BLAIR MD [address] [place] [address] 09-30-2023 19:38-0400 Body height 157.5 cm MAXINE BLAIR MD [address] [place] [address] 09-30-2023 19:38-0400 Body weight 91.1 kg MAXINE BLAIR MD [facility] 09-30-2023 19:38-0400 Body weight 36.72 kg/m2 MAXINE BLAIR MD [facility] 09-30-2023 19:16-0400 Mean blood pressure 110 mm[Hg] MAXINE BLAIR MD [facility] 09-30-2023 18:37-0400 Mean blood pressure 116 mm[Hg] MAXINE BLAIR MD [facility] 09-30-2023 14:11-0400 Body weight 91.2 kg MAXINE BLAIR MD [facility] 09-30-2023 14:11-0400 Heart rate 71 /min MAXINE BLAIR MD [facility] 09-19-2023 10:45-0400 Diastolic blood pressure 88 mm[Hg] Giselle Boykin MD Work Phone: [facility] 09-19-2023 10:45-0400 Systolic blood pressure 138 mm[Hg] Giselle Boykin MD Work Phone: [facility] 09-19-2023 10:30-0400 Body height 157.5 cm Giselle Boykin MD Work Phone: [facility] 09-19-2023 10:30-0400 Body mass index (BMI) [Ratio] 36.71 kg/m2 Giselle Boykin MD Work Phone: [facility] 09-19-2023 10:30-0400 Body temperature 96.4 [degF] Giselle Boykin MD Work Phone: [facility] 09-19-2023 10:30-0400 Body weight 91.04 kg Giselle Boykin MD Work Phone: [facility] 09-19-2023 10:30-0400 Heart rate 70 /min Giselle Boykin MD Work Phone: [facility] 09-19-2023 10:30-0400 SaO2% (BldA) [Mass fraction] 95 % Giselle Boykin MD Work Phone: [facility] 05-03-2023 10:42-0500 Body mass index (BMI) [Ratio] 35.81 kg/m2 Maura Lange MD Work Phone: [facility] 05-03-2023 10:42-0500 Body temperature 97.3 [degF] Maura Lange MD Work Phone: [facility] 05-03-2023 10:42-0500 Body weight 88.81 kg Maura Lange MD Work Phone: [phone] [place] [address] 05-03-2023 10:42-0500 Diastolic blood pressure 95 mm[Hg] Maura Lange MD Work Phone: [facility] 05-03-2023 10:42-0500 Heart rate 70 /min Maura Lange MD Work Phone: [facility] 05-03-2023 10:42-0500 SaO2% (BldA) [Mass fraction] 98 % Maura Lange MD Work Phone: [facility] 05-03-2023 10:42-0500 Systolic blood pressure 125 mm[Hg] Maura Lange MD Work Phone: [facility] 03-20-2023 14:46-0500 Body height 157.5 cm Giselle Boykin MD Work Phone: [facility] 03-20-2023 14:46-0500 Body mass index (BMI) [Ratio] 36.03 kg/m2 Giselle Boykin MD Work Phone: [facility] 03-20-2023 14:46-0500 Body temperature 97.11 [degF] Giselle Boykin MD Work Phone: [facility] 03-20-2023 14:46-0500 Body weight 89.36 kg Giselle Boykin MD Work Phone: [facility] 03-20-2023 14:46-0500 Diastolic blood pressure 92 mm[Hg] Giselle Boykin MD Work Phone: [facility] 03-20-2023 14:46-0500 Heart rate 85 /min Giselle Boykin MD Work Phone: [facility] 03-20-2023 14:46-0500 SaO2% (BldA) [Mass fraction] 99 % Giselle Boykin MD Work Phone: [facility] 03-20-2023 14:46-0500 Systolic blood pressure 125 mm[Hg] Giselle Boykin MD Work Phone: [facility] 01-31-2023 10:11-0400 Diastolic blood pressure 75 mm[Hg] Christopher Pluskota DO Work Phone: [facility] 01-31-2023 10:11-0400 Heart rate 81 /min Christopher Pluskota DO Work Phone: [facility] 01-31-2023 10:11-0400 Respiratory rate 17 /min Christopher Pluskota DO Work Phone: [facility] 01-31-2023 10:11-0400 SaO2% (BldA) [Mass fraction] 100 % Christopher Pluskota DO Work Phone: [facility] 01-31-2023 10:11-0400 Systolic blood pressure 121 mm[Hg] Christopher Pluskota DO Work Phone: [facility] 01-31-2023 09:57-0400 Body temperature 97.9 [degF] Christopher Pluskota DO Work Phone: [facility] 01-31-2023 09:11-0400 Body height 157.5 cm Christopher Pluskota DO Work Phone: [facility] 01-31-2023 09:11-0400 Body mass index (BMI) [Ratio] 35.85 kg/m2 Ángel Pluskota DO Work Phone: [facility] 01-31-2023 [id number] Body weight 88.91 kg Vasileer Pluskota DO Work Phone: [facility] 11-01-2022 10:51-0400 Body height 160.02 cm Giselle Boykin Work Phone: [facility] Work Phone: 11-01-2022 10:51-0400 Body mass index (BMI) [Ratio] 34.72 kg/m2 Giselle Boykin Work Phone: [facility] Work Phone: 11-01-2022 10:51-0400 Body surface area Derived from formula 1.92 m2 Giselle Boykin Work Phone: [facility] Work Phone: 11-01-2022 10:51-0400 Body temperature 96.8 [degF] Giselle Boykin Work Phone: [facility] Work Phone: 11-01-2022 10:51-0400 Body weight 88.91 kg Giselle Boykin Work Phone: [facility] Work Phone: 11-01-2022 10:51-0400 Diastolic blood pressure 91 mm[Hg] Giselle Boykin Work Phone: [facility] Work Phone: 11-01-2022 10:51-0400 Heart rate 74 /min Giselle Boykin Work Phone: [facility] Work Phone: 11-01-2022 10:51-0400 SaO2% (BldA) [Mass fraction] 98 % Giselle Boykin Work Phone: [facility] Work Phone: 11-01-2022 10:51-0400 Systolic blood pressure 131 mm[Hg] Giselle Boykin Work Phone: [facility] Work Phone: 11-01-2022 10:51-0400 3 1 Giselle Boykin Work Phone: [facility] Work Phone: Comment on above: [employer] 10-10-2022 10:36-0400 Body mass index (BMI) [Ratio] 36 kg/m2 Giselle Boykin [facility] Work Phone: 10-10-2022 10:36-0400 Body surface area Derived from formula 1.95 m2 Giselle Boykin Work Phone: [facility] Work Phone: 10-10-2022 10:36-0400 Body temperature 79.2 [degF] Giselle Boykin [facility]: [facility] Work Phone: 10-10-2022 10:36-0400 Body weight 92.19 kg Giselle Boykin Work Phone: [facility] Work Phone: 10-10-2022 10:36-0400 Diastolic blood pressure 96 mm[Hg] Giselle Laya Boykin Work Phone: [facility] Work Phone: 10-10-2022 10:36-0400 Heart rate 70 /min Giselle Laya Boykin Work Phone: [facility] Work Phone: 10-10-2022 10:36-0400 SaO2% (BldA) [Mass fraction] 94 % Giselle Guoers Work Phone: [facility] Work Phone: 10-10-2022 10:36-0400 Systolic blood pressure 154 mm[Hg] Giselle Guoers Work Phone: [facility] Work Phone: 08-30-2022 14:46-0400 Body height 160.02 cm Giselle Guoers Work Phone: [facility] Work Phone: 08-30-2022 14:46-0400 Body mass index (BMI) [Ratio] 35.43 kg/m2 Giselle Guoers Work Phone: [facility] Work Phone: 08-30-2022 14:46-0400 Body surface area Derived from formula 1.93 m2 Giselle Guoers Work Phone: [facility] Work Phone: 08-30-2022 14:46-0400 Body temperature 97.2 [degF] Giselle Guoers Work Phone: [facility] Work Phone: 08-30-2022 14:46-0400 Body weight 90.72 kg Giselle Guoers Work Phone: [facility] Work Phone: 08-30-2022 14:46-0400 Diastolic blood pressure 112 mm[Hg] Giselle Boykin Work Phone: [facility] Work Phone: 08-30-2022 14:46-0400 Heart rate 72 /min Giselle Boykin Work Phone: [facility] Work Phone: 08-30-2022 14:46-0400 SaO2% (BldA) [Mass fraction] 96 % Giselle Boykin Work Phone: [facility] Work Phone: 08-30-2022 14:46-0400 Systolic blood pressure 162 mm[Hg] Giselle Boykin Work Phone: [facility] Work Phone: 05-08-2022 09:53-0500 Body mass index (BMI) [Ratio] 34.92 kg/m2 Giselle Boykin Work Phone: [facility] Work Phone: 05-08-2022 09:53-0500 Body surface area Derived from formula 1.92 m2 Giselle Boykin Work Phone: [facility] Work Phone: 05-08-2022 09:53-0500 Body temperature 97 [degF] Giselle Boykin Work Phone: [facility] Work Phone: 05-08-2022 09:53-0500 Body weight 89.42 kg Giselle Boykin Work Phone: [facility] Work Phone: 05-08-2022 09:53-0500 Diastolic blood pressure 89 mm[Hg] Giselle Laya Boykin Work Phone: [facility] Work Phone: 05-08-2022 09:53-0500 Heart rate 70 /min Giselle Laya Boykin Work Phone: [facility] Work Phone: 05-08-2022 09:53-0500 SaO2% (BldA) [Mass fraction] 95 % Giselle Laya Boykin Work Phone: [facility] Work Phone: 05-08-2022 09:53-0500 Systolic blood pressure 131 mm[Hg] Giselle E Boykin Work Phone: [facility] Work Phone: 05-03-2022 10:50-0500 Body height 160.02 cm Giselle Laya Alejandro Work Phone: [facility] Work Phone: 05-03-2022 10:50-0500 Body mass index (BMI) [Ratio] 34.93 kg/m2 Giselle E Alejandro Work Phone: [facility] Work Phone: 05-03-2022 10:50-0500 Body surface area Derived from formula 1.92 m2 Giselle E Alejandro Work Phone: [facility] Work Phone: 05-03-2022 10:50-0500 Body temperature 97.3 [degF] Giselle E Alejandro Work Phone: [facility] Work Phone: 05-03-2022 10:50-0500 Body weight 89.45 kg Giselle Guoers Work Phone: [facility] Work Phone: 05-03-2022 10:50-0500 Diastolic blood pressure 90 mm[Hg] Giselle Guoers Work Phone: [facility] Work Phone: 05-03-2022 10:50-0500 Heart rate 73 /min Giselle Guoers Work Phone: [facility] Work Phone: 05-03-2022 10:50-0500 Respiratory rate 18 /min Giselle Guoers Work Phone: [facility] Work Phone: 05-03-2022 10:50-0500 SaO2% (BldA) [Mass fraction] 98 % Giselle Boykin Work Phone: [facility] Work Phone: 05-03-2022 10:50-0500 Systolic blood pressure 122 mm[Hg] Giselle Boykin Work Phone: [facility] Work Phone: 04-04-2022 10:55-0500 Body mass index (BMI) [Ratio] 35.51 kg/m2 Giselle Boykin Work Phone: [facility] Work Phone: 04-04-2022 10:55-0500 Body surface area Derived from formula 1.94 m2 Giselle Boykin Work Phone: [facility] Work Phone: 04-04-2022 10:55-0500 Body temperature 96.6 [degF] Giselle Boykin Work Phone: [facility] Work Phone: 04-04-2022 10:55-0500 Body weight 90.92 kg Giselle Boykin Work Phone: [facility] Work Phone: 04-04-2022 10:55-0500 Diastolic blood pressure 87 mm[Hg] Giselle Boykin Work Phone: [facility] Work Phone: 01-03-2023 10:55-0500 Heart rate 59 /min Giselle Boykin Work Phone: [facility] Work Phone: 04-04-2022 10:55-0500 SaO2% (BldA) [Mass fraction] 98 % Giselle E Boykin Work Phone: [facility] Work Phone: 04-04-2022 10:55-0500 Systolic blood pressure 132 mm[Hg] Giselle Boykin Work Phone: [facility] Work Phone: 12-31-2021 12:54-0400 Body temperature 98.71 [degF] Koby Braun [employer] Work Phone: [facility] 12-31-2021 12:54-0400 Body weight 91.17 kg Koby Yahir [employer] Work Phone: [facility] 12-31-2021 12:54-0400 Diastolic blood pressure 85 mm[Hg] Koby Princeton [employer] Work Phone: [facility] 12-31-2021 12:54-0400 Heart rate 99 /min Koby Princeton [employer] Work Phone: [facility] 12-31-2021 12:54-0400 Respiratory rate 18 /min Koby Yahir [employer] Work Phone: [facility] 12-31-2021 12:54-0400 SaO2% (BldA) [Mass fraction] 97 % Koby Princeton [employer] Work Phone: [facility] 12-31-2021 12:54-0400 Systolic blood pressure 130 mm[Hg] Koby Yahir [employer] Work Phone: [facility] 10-27-2021 11:41-0400 Body height 160.02 cm Giselle Boykin Work Phone: [facility] Work Phone: 10-27-2021 11:41-0400 Body mass index (BMI) [Ratio] 35.43 kg/m2 Giselle Boykin Work Phone: [facility] Work Phone: 10-27-2021 11:41-0400 Body surface area Derived from formula 1.93 m2 Giselle Boyikn Work Phone: [facility] Work Phone: 10-27-2021 11:41-0400 Body temperature 97.2 [degF] Giselle Boykin Work Phone: [facility] Work Phone: 10-27-2021 11:41-0400 Body weight 90.72 kg Giselle Boykin Work Phone: [facility] Work Phone: 10-27-2021 11:41-0400 Diastolic blood pressure 85 mm[Hg] Giselle Boykin Work Phone: [facility] Work Phone: 10-27-2021 11:41-0400 Heart rate 75 /min Giselle Boykin Work Phone: [facility] Work Phone: 10-27-2021 11:41-0400 SaO2% (BldA) [Mass fraction] 97 % Giselle Boykin Work Phone: [facility] Work Phone: 10-27-2021 11:41-0400 Systolic blood pressure 130 mm[Hg] Giselle Boykin Work Phone: [facility] Work Phone: 09-14-2021 15:15-0400 Body mass index (BMI) [Ratio] 35.09 kg/m2 Giselle Boykin Work Phone: [facility] Work Phone: 09-14-2021 15:15-0400 Body surface area Derived from formula 1.93 m2 Giselle Boykin Work Phone: [facility] Work Phone: 09-14-2021 15:15-0400 Body temperature 97.5 [degF] Giselle Boykin Work Phone: [facility] Work Phone: 09-14-2021 15:15-0400 Body weight 89.84 kg Giselle Boykin Work Phone: [facility] Work Phone: 09-14-2021 15:15-0400 Diastolic blood pressure 64 mm[Hg] Giselle Boykin Work Phone: [facility] Work Phone: 09-14-2021 15:15-0400 Heart rate 85 /min Giselle Boykin Work Phone: [facility] Work Phone: 09-14-2021 15:15-0400 SaO2% (BldA) [Mass fraction] 98 % Giselle Boykin Work Phone: [facility] Work Phone: 09-14-2021 15:15-0400 Systolic blood pressure 84 mm[Hg] Giselle Boykin Work Phone: [facility] Work Phone: 08-31-2021 13:49-0400 Body temperature 97.6 [degF] Giselle Laya Boykin Work Phone: OI-Hdrhwtzgb-Fxcrv a 170 DO Work Phone: 08-31-2021 13:49-0400 Diastolic blood pressure 86 mm[Hg] Giselle Laya Alejandro Work Phone: WS-Owblqljhy-Dcecf a 170 DO Work Phone: 08-31-2021 13:49-0400 Heart rate 80 /min Giselle E Boykin Work Phone: TT-Giiyqdjgq-Dciaz a 170 DO Work Phone: 08-31-2021 13:49-0400 Respiratory rate 16 /min Giselle Laya Alejandro Work Phone: GH-Ldtolvvyt-Uwvpl a 170 DO Work Phone: 08-31-2021 13:49-0400 Systolic blood pressure 150 mm[Hg] Giselle E Alejandro Work Phone: ED-Jobxhslkn-Fretw a 170 DO Work Phone: 04-29-2021 11:09-0500 Body height 160.02 cm Giselle E Alejandro Work Phone: [facility] Work Phone: 04-29-2021 11:09-0500 Body mass index (BMI) [Ratio] 35.46 kg/m2 Giselle E Alejandro Work Phone: [facility] Work Phone: 04-29-2021 11:09-0500 Body surface area Derived from formula 1.93 m2 Giselle Asif Alejandro Work Phone: [facility] Work Phone: 04-29-2021 11:09-0500 Body temperature 97.1 [degF] Giselle Guoers Work Phone: [facility] Work Phone: 04-29-2021 11:09-0500 Body weight 90.81 kg Giselle Boykin Work Phone: [facility] Work Phone: 04-29-2021 11:09-0500 Diastolic blood pressure 69 mm[Hg] Giselle Boykin Work Phone: [facility] Work Phone: 04-29-2021 11:09-0500 Heart rate 71 /min Giselle Boykin Work Phone: [facility] Work Phone: 04-29-2021 11:09-0500 Respiratory rate 16 /min Giselle Boykin Work Phone: [facility] Work Phone: 04-29-2021 11:09-0500 SaO2% (BldA) [Mass fraction] 97 % Giselle Boykin Work Phone: [facility] Work Phone: 04-29-2021 11:09-0500 Systolic blood pressure 100 mm[Hg] Giselle Boykin Work Phone: [facility] Work Phone: 04-29-2021 11:09-0500 4 1 Giselle Boykin Work Phone: [facility] Work Phone: Comment on above: [employer] 03-15-2021 13:03-0500 Body mass index (BMI) [Ratio] 36.05 kg/m2 iGselle Boykin Work Phone: [facility] Work Phone: 03-15-2021 13:03-0500 Body surface area Derived from formula 1.95 m2 Giselle Laya Boykin Work Phone: [facility] Work Phone: 03-15-2021 13:03-0500 Body temperature 96.6 [degF] Giselle Boykin Work Phone: [facility] Work Phone: 03-15-2021 13:03-0500 Body weight 92.31 kg Giselle Boykin Work Phone: [facility] Work Phone: 03-15-2021 13:03-0500 Diastolic blood pressure 89 mm[Hg] Giselle Boykin Work Phone: [facility] Work Phone: 03-15-2021 13:03-0500 Heart rate 75 /min Giselle Boyikn Work Phone: [facility] Work Phone: 03-15-2021 13:03-0500 SaO2% (BldA) [Mass fraction] 95 % Giselle Boykin Work Phone: [facility] Work Phone: 03-15-2021 13:03-0500 Systolic blood pressure 116 mm[Hg] Giselle Laya Boykin Work Phone: [facility] Work Phone: 11-15-2020 13:49-0400 Body temperature 96 [degF] Giselle Boykin Work Phone: CQ-Ohfpwxung-Ctrzt a 170 DO Work Phone: 11-15-2020 13:49-0400 Diastolic blood pressure 90 mm[Hg] Giselle Laya Boykin Work Phone: EI-Nqrojmbit-Jmdvz a 170 DO Work Phone: 11-15-2020 13:49-0400 Heart rate 84 /min Giselle Laya GuoBoykin Work Phone: PE-Urmtyxgty-Kgixb a 170 DO Work Phone: 11-15-2020 13:49-0400 Respiratory rate 16 /min Giselle E Boykin Work Phone: [facility] a 170 DO Work Phone: 11-15-2020 13:49-0400 Systolic blood pressure 130 mm[Hg] Giselle E Boykin Work Phone: [facility] a 170 DO Work Phone: 10-29-2020 11:29-0400 Body height 160.02 cm Giselle E Boykin Work Phone: [facility] Work Phone: 10-29-2020 11:29-0400 Body mass index (BMI) [Ratio] 36.19 kg/m2 Giselle E Boykin Work Phone: [facility] Work Phone: 10-29-2020 11:29-0400 Body surface area Derived from formula 1.95 m2 Giselle E Alejandro Work Phone: [facility] Work Phone: 10-29-2020 11:29-0400 Body temperature 97.5 [degF] Giselle E Alejandro Work Phone: [facility] Work Phone: 10-29-2020 11:29-0400 Body weight 92.68 kg Giselle E Boykin Work Phone: [facility] Work Phone: 10-29-2020 11:29-0400 Diastolic blood pressure 82 mm[Hg] Giselle Guoers Work Phone: [facility] Work Phone: 10-29-2020 11:29-0400 Heart rate 74 /min Giselle Guoers Work Phone: [facility] Work Phone: 10-29-2020 11:29-0400 Respiratory rate 18 /min Giselle Guoers Work Phone: [facility] Work Phone: 10-29-2020 11:29-0400 SaO2% (BldA) [Mass fraction] 97 % Giselle Boykin Work Phone: [facility] Work Phone: 10-29-2020 11:29-0400 Systolic blood pressure 113 mm[Hg] Giselle Boykin Work Phone: [facility] Work Phone: 10-29-2020 11:29-0400 5 1 Giselle Boykin Work Phone: [facility] Work Phone: Comment on above: [employer] 08-05-2020 13:00-0400 Body mass index (BMI) [Ratio] 36.35 kg/m2 Giselle Boykin Work Phone: MX-Dirhhzozx-FSFYL [employer] Work Phone: 08-05-2020 13:00-0400 Body surface area Derived from formula 1.95 m2 Giselle Boykin Work Phone: JO-Aacxgjgtb-WBUEH [employer] Work Phone: 08-05-2020 13:00-0400 Body temperature 96.8 [degF] Giselle Boykin Work Phone: VY-Atxzlvqiz-AKVNA [employer] Work Phone: 08-05-2020 13:00-0400 Body weight 93.07 kg Giselle Boykin Work Phone: PS-Krhpbptug-INIQH [employer] Work Phone: 08-05-2020 13:00-0400 Diastolic blood pressure 96 mm[Hg] Giselle Boykin Work Phone: CE-Agtwhrqki-OIXSJ [employer] Work Phone: 08-05-2020 13:00-0400 Heart rate 67 /min Giselle Boykin Work Phone: RH-Wnpwidfwl-STQTP [employer] Work Phone: 08-05-2020 13:00-0400 Systolic blood pressure 122 mm[Hg] Giselle Boykin Work Phone: CD-Fandtjoki-VCPKI [employer] Work Phone: 04-30-2020 12:53-0500 BMI (Body Mass Index) 34.37 kg/m2 Maura Lange MP-[facility] Work Phone: 04-30-2020 12:53-0500 Body Temperature 97.4 [degF] Maura Lange [facility] Work Phone: 04-30-2020 12:53-0500 Body weight 88 kg Maura Lange [facility] Work Phone: 04-30-2020 12:53-0500 BP Diastolic 76 mm[Hg] Maura Lange [facility] Work Phone: 04-30-2020 12:53-0500 BP Systolic 110 mm[Hg] Maura Lange [facility] Work Phone: 04-30-2020 12:53-0500 BSA (Body Surface Area) 1.91 m2 Maura Lange MP-[facility] Work Phone: 04-30-2020 12:53-0500 Pulse (Heart Rate) 67 /min Maura Lange [facility] Work Phone: 04-30-2020 12:53-0500 Pulse Oximetry 99 % Maura Lange [facility] Work Phone: 04-30-2020 12:53-0500 Respiratory Rate 16 /min Maura Lange [facility] Work Phone: 04-30-2020 12:53-0500 3 1 Maura Lange [facility] Work Phone: Comment on above: [employer] 12-04-2019 08:21-0400 Body Temperature 98.2 [degF] [facility], [place] 12-04-2019 08:21-0400 BP Diastolic 68 mm[Hg] [place], [place] 12-04-2019 08:21-0400 BP Systolic 112 mm[Hg] [place], [place] 12-04-2019 08:21-0400 Pulse (Heart Rate) 95 /min [facility], [place] 12-04-2019 08:21-0400 Pulse Oximetry 98 % [facility] , [place] 12-04-2019 08:21-0400 Respiratory Rate 16 /min [facility], [place] 12-03-2019 11:22-0400 BMI (Body Mass Index) 36.4 kg/m2 [facility], [place] 12-03-2019 11:22-0400 Body weight 90.27 kg [facility] , [place] 12-03-2019 11:22-0400 Height 157.5 cm [place], [place] 11-26-2019 10:43-0400 Body Temperature 97.2 [degF] [facility], [place] 11-26-2019 10:43-0400 BP Diastolic 87 mm[Hg] [facility] , [place] 11-26-2019 10:43-0400 BP Systolic 126 mm[Hg] [facility] , [place] 11-26-2019 10:43-0400 Pulse (Heart Rate) 72 /min [facility], [place] 11-26-2019 10:43-0400 Pulse Oximetry 98 % [facility] , [place] 11-26-2019 10:43-0400 Respiratory Rate 16 /min [facility], [place] 11-26-2019 10:39-0400 BMI (Body Mass Index) 36.4 kg/m2 [facility], [place] 11-26-2019 10:39-0400 Body weight 90.27 kg [facility] , [place] 11-26-2019 10:39-0400 Height 157.5 cm [facility] , [place] 12-24-2018 10:50-0400 Body Temperature 97.39 [degF] [facility], [place] 12-24-2018 10:50-0400 BP Diastolic 81 mm[Hg] [facility] , [place] 12-24-2018 10:50-0400 BP Systolic 125 mm[Hg] [facility] , [place] 12-24-2018 10:50-0400 Pulse (Heart Rate) 82 /min [facility], [place] 12-24-2018 10:50-0400 Pulse Oximetry 99 % [facility] , [place] 12-24-2018 10:50-0400 Respiratory Rate 18 /min [facility], [place] 12-24-2018 06:46-0400 BMI (Body Mass Index) 35.3 kg/m2 [facility], [place] 12-24-2018 06:46-0400 Body weight 87.54 kg [facility] , [place] 12-24-2018 06:46-0400 Height 157.5 cm [facility] , [place] 12-16-2018 09:20-0400 Body Temperature 97.59 [degF] [facility], [place] 12-16-2018 09:20-0400 BP Diastolic 86 mm[Hg] [facility] [place] , [place] 12-16-2018 09:20-0400 BP [facility]olic 120 mm[facility]Hg[facility] [place] [facility] [place] 12-16-2018 09:20-0400 Pulse (Heart Rate) 74 /min Lucrecia [facility], [place] 12-16-2018 09:20-0400 Pulse [facility]ximetry 99 % [facility] [place] [facility] [place] 12-16-2018 09:20-0400 Respiratory Rate 16 /min [facility], [place] 12-16-2018 09:09-0400 BMI (Body Mass Index) 35.85 kg/m2 [facility], [place] 12-16-2018 09:09-0400 Body weight 88.91 kg [facility] , [place] 12-16-2018 09:09-0400 Height 157.5 cm [place] Encounters Encounter Date Encounter Type Care Provider Facility Start: 10-19-2024 Non-patient / Non-visit Dr. Joycelyn pinzon MD -[facility] Work Phone: Start: 10-19-2024 Evaluation and manag ement of inpatient Dr. Joycelyn Crowley MD -Progressive Care Unit Work Phone: Start: 10-09-2024 End: 10-09-2024 Subsequent hospital visit by physician [facility] Oryfer290 Mam 1 [facility] Comment on above: Visit for screening mammogram Start: 10-09-2024 End: 10-09-2024 ambulatory GISELLE BOYKIN [facility] Start: 08-19-2024 End: 08-19-2024 Office outpatient visit 25 minutes Giselle Boykin MD Work Phone: [facility] Comment on above: Type 2 diabetes dorie itus with hyperglycemia, without long-term current use of insulin (Primary Dx); Stage 3b chronic kidney disease (Multi); Leukocytosis, unspecified type Start: 08-19-2024 End: 08-19-2024 ambulatory GISELLE BOYKIN [facility] Start: 05-07-2024 End: 05-07-2024 ambulatory MAURA LANGE MD Facility:[id number] Start: 05-07-2024 End: 05-07-2024 ambulatory [facility] Start: 05-07-2024 End: 05-07-2024 Office outpatient visit 25 minutes Maura Lange MD Work Phone: [facility] Comment on above: Systemic lupus eryth [...] type Start: 04-29-2024 ambulatory STEPHANIE WILDER Facilit y:[id number] Start: 04-29-2024 End: 04-29-2024 Subsequent hospital visit by physician Xr Tony Du Work Phone: [facility] Comment on above: Bronchitis [J40] Start: 04-29-2024 End: 04-29-2024 ambulatory STEPHANIE WILDER Facility:[id number] Start: 04-29-2024 End: 04-29-2024 Patient encounter procedure Stephanie Wilder [employer] Work Phone: [facility] Comment on above: Bacterial sinusitis (Primary Dx); Bronchitis Start: 03-20-2024 End: 03-20-2024 Office outpatient visit 25 minutes Giselle Boykin MD Work Phone: [facility] Comment on above: Mixed hyperlipidemia (Primary Dx); Benign essential hypertension; Type 2 diabetes mellitus with hyperglycemia, without long-term current use of insulin; Situational depression; Anxiety Start: 03-20-2024 End: 03-20-2024 ambulatory GISELLE BOYKIN [facility] Start: 01-29-2024 End: 01-29-2024 ambulatory Mo Johnson Facility:[facility] Start: 11-27-2023 End: 11-27-2023 Office outpatient visit 15 minutes [facility] [employer] Work Phone: [facility] Comment on above: Acute otitis media, unspecified otitis media type (Primary Dx) Start: 11-27-2023 End: 11-27-2023 ambulatory [facility] Start: 11-14-2023 End: 11-15-2023 Emergency department patient visit HARSH Monique MAMADOU SEVILLA [facility] Start: 11-01-2023 End: 11-01-2023 ambulatory [facility] Start: 09-30-2023 End: 10-02-2023 Emergency department patient visit VICKY HERNANDEZ MD Facility:A Start: 09-30-2023 End: 10-02-2023 Observation MAXINE BLAIR MD [facility] Start: 09-19-2023 End: 09-19-2023 Office outpatient visit 25 minutes Giselle Boykin MD Work Phone: [facility] Comment on above: Benign essential hyp ertension (Primary Dx); Skin lesion of chest wall; Screening for skin cancer; Type 2 diabetes mellitus with hyperglycemia, without long-term current use of insulin (Multi); Left anterior knee pain Start: 09-19-2023 End: 09-19-2023 ambulatory GISELLE BOYKIN [facility] Start: 05-03-2023 End: 05-03-2023 Office outpatient visit 25 minutes Maura Lange MD Work Phone: [facility] Comment on above: Systemic lupus eryth [...] (BMI) of 35.0 to 35.9 in adult ([facility]) Start: 03-20-2023 End: 03-20-2023 Office outpatient visit 25 minutes Giselle Boykin MD Work Phone: [facility] Comment on above: Benign essential hyp ertension (Primary Dx); Mixed hyperlipidemia; Type 2 diabetes mellitus with hyperglycemia, without long-term current use of insulin ([facility]); Anemia, unspecified type; Systemic lupus erythematosus, unspecified SLE type, unspecified organ involvement status ([facility]) Start: 01-31-2023 End: 01-31-2023 Subsequent hospital visit by physician Ángel Vicente DO Work Phone: [facility] Comment on above: Encounter for screen ing for malignant neoplasm of colon Start: 01-18-2023 End: 01-18-2023 Emergency department patient visit TOMAS GOLDEN MD Facility:A Start: 01-11-2023 FUV, Provider: Giselle Boykin, Status: Pen, Time: 10:30 AM Giselle Boykin Work Phone: [facility] Work Phone: Start: 12-07-2022 AUDIT Giselle pratt Work Phone: [facility] Work Phone: Start: 11-13-2022 Rx Renewal Giselle pratt Work Phone: [facility] Work Phone: Start: 11-02-2022 Chart Update Giselle pratt Work Phone: [facility] Work Phone: Start: 11-01-2022 FUV, Provider: Maura Lange, Status: Pen, Time: 10:45 AM Giselle Boykin Work Phone: [facility] Work Phone: Start: 11-01-2022 Office outpatient vi sit 25 minutes Giselle Boykin Work Phone: [employer] Work Phone: Start: 11-01-[address] Giselle Boykin Facility:[id number] Start: 10-30-2022 AUDIT Giselle Guo ers Work Phone: -[facility] Work Phone: Start: 10-26-2022 Image Encounter Giselle Guo ers Work Phone: [facility] Work Phone: Start: 10-25-2022 AUDIT Giselle Guo ers Work Phone: [facility] Work Phone: Start: 10-10-[address] Giselle Boykin Facility:[id number] Start: 08-31-2022 Chart Update Giselle pratt Work Phone: [facility] Work Phone: Start: 08-30-2022 Office outpatient vi sit 15 minutes Giselle Boykin Work Phone: [facility] Work Phone: Start: 08-30-[address] Giselle Boykin Facility:[id number] Start: 05-26-[address] Giselle Boykin Facility:[id number] Start: 05-13-2022 Chart Update Giselle pratt Work Phone: [facility] Work Phone: Start: 05-11-[address] Giselle Boykin Facility:[id number] Start: 05-08-[address] Giselle Boyikn Facility:[id number] Start: 05-08-2022 Office outpatient vi sit 25 minutes Giselle Boykin Work Phone: -[facility] Work Phone: Start: 05-04-2022 Chart Update Giselle Guo ers Work Phone: [facility] Work Phone: Start: 05-03-2022 Office outpatient vi sit 25 minutes Giselle Boykin Work Phone: [facility] Work Phone: Start: 05-03-[address] Maura Lange Fac ility:[id number] Start: 04-30-2022 AUDIT Giselle Guo ers Work Phone: [facility] Work Phone: Start: 04-07-2022 Chart Update Giselle Guo ers Work Phone: [facility] Work Phone: Start: 04-05-2022 AUDIT Giselle Guo ers Work Phone: [facility] Work Phone: Start: 04-04-2022 FUV, Provider: Giselle Boykin, Status: Pen, Time: 11:00 AM Giselle Boykin Work Phone: [facility] Work Phone: Start: 04-04-2022 Office outpatient vi sit 25 minutes Giselle Boykin Work Phone: [facility] Work Phone: Start: 04-04-[address] 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 Comment on above: Acute cough (Primary Dx); Sore throat; Viral URI with cough Start: 11-07-2021 AUDIT Giselle Guo ers Work Phone: [facility] Work Phone: Start: 10-28-2021 Chart Update Giselle Guo ers Work Phone: -[facility] Work Phone: Start: 10-27-2021 FUV, Provider: Maura Lange, Status: Pen, Time: 11:45 AM Giselle Boykin Work Phone: [facility] Work Phone: Start: 10-27-2021 Office outpatient vi sit 25 minutes Giselle Guoers Work Phone: -[employer] [facility] Work Phone: Start: 10-26-2021 AUDIT Giselle Asif Ay ers Work Phone: -[facility] Work Phone: Start: 09-18-2021 Chart Update Giselle Asif Ay ers Work Phone: -[facility] Work Phone: Start: 09-14-2021 Office outpatient vi sit 25 minutes Giselle Guoers Work Phone: [facility] Work Phone: Start: 08-31-2021 Office outpatient vi sit 15 minutes Giselle Guoers Work Phone: ME-Hfwftrntb-Gqhmtt 170 DO Work Phone: Start: 07-29-2021 AUDIT Giselle Asif Ay ers Work Phone: DP-Tgiaqbqud-Nscgko 170 DO Work Phone: Start: 05-03-2021 Chart Update Giselle Asif Ay ers Work Phone: [facility] Work Phone: Start: 05-02-2021 Chart Update Giselle Asif Ay ers Work Phone: [facility] Work Phone: Start: 04-30-2021 Chart Update Giselle Asif Ay ers Work Phone: [employer] Work Phone: Start: 04-29-2021 Office outpatient vi sit 25 minutes Giselle Laya GuoBoykin Work Phone: -[facility] Work Phone: Start: 03-15-2021 Patient encounter procedure Giselle Guoers Work Phone: [employer] Work Phone: Start: 03-03-2021 Rx Renewal Giselle Asif Ay ers Work Phone: [facility]-Tacokezcl-Qahkxh 170 DO Work Phone: Start: 01-05-2021 AUDIT Giselle Asif Ay ers Work Phone: -[facility] Work Phone: Start: 11-15-2020 Office outpatient vi sit 25 minutes Giselle Laya Boykin Work Phone: ZP-Fhnxdyyxw-Sjlkzn 170 DO Work Phone: Start: 10-31-2020 Chart Update Giselle Laya Ay ers Work Phone: [facility] Work Phone: Start: 10-29-2020 FUV, Provider: Kuchynski,Maura, Status: Pen, Time: 11:30 AM Giselle Boykin Work Phone: [facility] [facility] Work Phone: Start: 10-29-2020 Office outpatient vi sit 25 minutes Giselle Boykin Work Phone: [employer] Work Phone: Start: 10-28-2020 AUDIT Giselle Guo ers Work Phone: [facility] Work Phone: Start: 09-30-2020 AUDIT Giselle Guo ers Work Phone: [employer] Work Phone: Start: 09-03-2020 Chart Update Giselle Guo ers Work Phone: [facility] Work Phone: Start: 08-27-2020 Patient encounter procedure Giselle Boykin Work Phone: XP-Qbwoyudym-OLGLR [place] [facility] Work Phone: Start: 04-30-2020 Patient encounter procedure Maura Lange [facility] Work Phone: Start: 02-05-2020 Patient encounter procedure Maura Nazario [facility] Work Phone: Start: 12-03-2019 End: 12-04-2019 Subsequent hospital visit by physician Luis Enrique Ventura Work Phone: [facility] Comment on above: Abnormal uterine ble eding (Primary Dx) Start: 11-26-2019 End: 11-26-2019 Subsequent hospital visit by physician Luis Enrique Ventura Work Phone: [facility] Pre-Admit [facility] Comment on above: Arrived Start: 10-31-2019 Patient encounter procedure Maura Lange [facility] Work Phone: Start: 08-07-2019 Patient encounter procedure Maura Lange [facility] Work Phone: Start: 07-07-2019 Patient encounter procedure Maura Lange MPZD-Llpvvpqyw-Ntirqg 170 DO Work Phone: Start: 04-11-2019 Patient encounter procedure Maura Lange OG-Wjmanqppf-Dvnabd 170 DO Work Phone: Start: 02-17-2019 Patient encounter procedure Maura Lange EM-Jeydxdjqw-Xtznwf 170 DO Work Phone: Start: 01-08-2019 Patient encounter procedure Maura Lange CM-Tnpismgyk-Gwgzrz 170 DO Work Phone: Start: 12-24-2018 End: 12-24-2018 Subsequent hospital visit by physician Lucrecia Reich Work Phone: [facility] Comment on above: Recurrent incisional hernia (Primary Dx) Start: 12-16-2018 End: 12-16-2018 Subsequent hospital visit by physician Lucrecia [employer] Work Phone: [facility] Comment on above: Arrived Start: 11-18-2018 Patient encounter procedure Maura Lange BW-Rwqtcjsgf-Msgmoa 170 DO Work Phone: Start: 11-15-2018 Patient encounter procedure Maura Lange RC-Accjouxdx-Jeldjw 170 DO Work Phone: Start: 11-14-2018 End: 11-14-2018 Subsequent hospital visit by physician Roxanna Weaver Work Phone: [facility] [place] Comment on above: Recurrent incisional hernia Start: 11-11-2018 End: 11-11-2018 Subsequent hospital visit by physician Roxanna Weaver Work Phone: [facility] Comment on above: Recurrent incisional hernia Start: 08-19-2018 Patient encounter procedure Maura Lange ZN-Ejhegpnrp-Ahhsuz 170 DO Work Phone: Start: 08-15-2018 Patient encounter procedure Maura Kuchynski AQ-Zqtgdzsin-Xqvwny 170 DO Work Phone: Start: 07-17-2018 Patient encounter procedure Maura Lange DY-Gnrdjxjrn-Ozwwna 170 DO Work Phone: Start: 07-11-2018 Patient encounter procedure Maura Lange ID-Eocvuygiz-Osclux 170 DO Work Phone: Start: 05-22-2018 Patient encounter procedure Maura Lange BQ-Ijpwnpyhs-Fsdzvr 170 DO Work Phone: Start: 04-25-2018 Patient encounter procedure Maura Lange AF-Rmwyvvrkv-Adcezm 170 DO Work Phone: Start: 03-13-2018 Patient encounter procedure Maura Lange OR-Lzbrmgqzp-Cosavy 170 DO Work Phone: Start: 02-11-2018 Patient encounter procedure Maura Lange PY-Rcvzcbgjz-Aguxrk 170 DO Work Phone: Start: 11-14-2017 Patient encounter procedure Maura Lange MV-Vekmilnln-Wtyibf 170 DO Work Phone: Start: 10-16-2017 Patient encounter procedure Maura Lange CK-Lxeluqmti-Wpgdtk 170 DO Work Phone: Start: 10-09-2017 Patient encounter procedure Maura Lange OB-Ygbptxixc-Wnfkuu 170 DO Work Phone: Start: 09-26-2017 Patient encounter procedure Maura Lange KH-Wdhkfcdli-Zivtnt 170 DO Work Phone: Start: 08-30-2017 Patient encounter procedure Maura Lange NB-Asqovakhv-Cmkxui 170 DO Work Phone: Start: 08-13-2017 Patient encounter procedure Maura Lange EI-Rlpzkerkn-Njizwm 170 DO Work Phone: Start: 08-08-2017 Patient encounter procedure Maura Lange BJ-Phgpgkqro-Nepkfj 170 DO Work Phone: Start: 07-18-2017 Patient encounter procedure Maura Zhengfrancisco RV-Muxdrclsa-Ewgzlz 170 DO Work Phone: Start: 07-16-2017 Patient encounter procedure Maura Lange EZ-Wnggtdfdb-Ljvabq 170 DO Work Phone: End: 03-15-2016 Cancer cervix - screening done Giselle Boykin Work Phone: JC-Wgicylhzh-[facility] [place] [facility] Work Phone: End: 03-15-2016 Encounter for gynecological examination (general) (routine) without abnormal findings Giselle Boykin Work Phone: [facility] Work Phone: Procedures Date Procedure Procedure Detail Performing Clinician Start: 10-19-2024 Urnls dip stick/tabl et reagent auto microscopy Dr. Giselle Boykin MD Work Phone: Start: 10-19-2024 Computed tomography of abdomen and pelvis with intravenous contrast Dr. Giselle Boykin MD Work Phone: Start: 10-19-[address] Giselle Boykin MD Work Phone: Start: 10-19-2024 X-ray of chest, PA a nd lateral views Dr. Giselle Boykin MD Work Phone: Start: 10-19-2024 SARS-CoV-2, Influenz a & RSV (PCR) Dr. Giselle Boykin MD Work Phone: Start: 05-07-2024 Hemoglobin glycosylated a1c Giselle Boykin [...] DO Work Phone: Start: 01-31-2023 Colonoscopy Omar dickson Pluskota DO Work Phone: Start: 05-11-2022 Mammography Omar dickson Pluskota DO Work Phone: Start: 04-04-2022 Lipid 1996 panel - S kandy or Plasma Ángel Pluskota DO Work Phone: Start: 12-31-2021 STREP A MOLECULAR (POC) [facility] Provider Start: 04-30-2020 Xray Foot Bilateral, Complete, Min 3 Views Maura Calzadafrancisco Start: 04-16-2020 [facility] mammogram Breast screening Maura Nazario Start: 04-16-2020 MG Breast screening Iman Lange [...] Basic metabolic pane l calcium total Lucrecia Connor Work Phone: Start: 11-26-2019 Blood count complete automated Lucrecia Connor Work Phone: Start: 11-26-2019 Blood typing serologic abo Lucrecia Connor Work Phone: Start: 11-26-2019 Ecg routine ecg w/le ast 12 lds w/i&r Lucrecia Connor Work Phone: Start: 07-07-2019 Blood count complete auto&auto difrntl wbc Maura Nazario Start: 07-07-2019 Comprehensive metabo lic 2000 panel Maura Nazario Start: 12-24-2018 OPERATIVE REPORT 3m Sca nning Start: 12-24-2018 Gluc bld gluc mntr d ev cleared fda spec home use Lucrecia Antonio Reich Work Phone: Start: 12-24-2018 Gluc bld gluc mntr d ev cleared fda spec home use Lucrecia Reich Work Phone: Start: 12-24-2018 Urine test visual color cmprsn meths Inderjit Dickson Herrmann Work Phone: Start: 12-24-2018 Repair of ventral hernia Giselle Boykin Work Phone: Start: 12-16-2018 Basic metabolic pane l calcium total Lucrecia Connor Work Phone: Start: 12-16-2018 Blood count complete automated Lucrecia Connor Work Phone: Start: 12-16-2018 Ecg routine ecg w/le ast 12 lds w/i&r Lucrecia Connor Work Phone: Start: 11-14-2018 CT ABDOMEN PELVIS W CONTRAST Roxanna Weaver Work Phone: Start: 11-11-2018 Creatinine blood Roxanna B lack Work Phone: Start: 11-23-2015 Microscopic observat ion [Identifier] in Cervix by Cyto stain Ángel Vicente DO Work Phone: section Maura Calzadasabiloi nski section MAXINE Dickens MD Cholecystectomy Maura Ibarra ski Cholecystectomy MAXINE BLAIR MD Distal subtotal pancreatectomy Giselle Asif Boykin Work Phone: Comment on above: partial for phlegmon ; History of Pancreatectomy Fide espinoza Nazario Comment on above: partial for phlegmon ; History of Splenectomy Maura Nazario History of Ventral H ernia Repair Maura Nazario Comment on above: due to dehiscence ; Hysterectomy MAXINE BLAIR MD End: 12-24-2018 Repair of ventral hernia Maura Lange Screening colonoscopy Mauralaya Lange Splenectomy MAXINE BLAIR MD Stress test treadmil l (physical object) MAXINE BLAIR MD End: 12-03-2019 Total hysterectomy with removal of both tubes and ovaries Maura Nazario Plan of Treatment Date Care Activity Detail Author Start: 01-28-2033 Screening for malign ant neoplasm of colon [facility] Start: 05-03-2028 Lipid panel Lipid Screening [facility] Start: 10-31-2026 Diabetes Screening Diabetes Screenin g [facility] Start: 12-15-2025 DTaP/Tdap/Td vaccine (3 - Td) DTaP/Tdap/Td vaccine (3 - Td) [place], [place] Start: 12-15-2025 DTaP/Tdap/Td Vaccine s (3 - Td or Tdap) DTaP/Tdap/Td Vaccines (3 - Td or Tdap) [facility] Start: 12-15-2025 Urine microalbumin profile DTa P,Tdap,Td Vaccine (3 - Td or Tdap) [facility] Start: 05-07-2025 Urine screening for protein Diabetes: Urine Protein Screening [facility] Start: 05-05-2025 Lipid panel Lipid Panel [facility] Start: 12-01-2024 Influenza vaccination Influenz a Vaccine (#1) [facility] Start: 11-20-2024 End: 11-20-2024 Patient encounter procedure 11/20/2024 10:15 AM EDT Office Visit [facility] [address] [place] [address] [address] [place] [phone] Giselle Boykin MD [address] [place] [address] [phone] [facility] Start: 11-19-2024 Hemoglobin A1c measurement Devi betes: Hemoglobin A1C [facility] Start: 11-06-2024 End: 11-06-2024 Patient encounter procedure 11/06/2024 10:30 AM EDT Office Visit [address] [phone] Maura Lange MD [address] [place] [address] [phone] [facility] Start: 10-19-2024 Verification routine [facility] Start: 10-19-2024 Admission procedure [facility] Start: 10-19-2024 Hospital admission, emergency, from emergency room, medical nature [facility] Start: 10-19-2024 End: 10-19-2024 [facility] Start: 10-19-2024 Bacteria identified in Blood by Culture Blood Culture [facility] Start: 10-19-2024 Bacteria identified in Urine by Culture Urine Culture [facility] Start: 08-19-2024 End: 08-19-2025 Basic metabolic 2000 panel - Serum or Plasma Basic metabolic panel Lab Routine Stage 3b chronic kidney disease (Multi) Expected: 08/19/2024 (Approximate), Expires: 08/19/2025 [facility] Work Phone: Comment on above: Expected: 08/19/2024 (Approximate), Expires: 08/19/2025 Start: 08-19-2024 End: 08-19-2025 CBC W Auto Differential panel - Blood CBC and Auto Differential Lab Routine Leukocytosis, unspecified type Expected: 08/19/2024 (Approximate), Expires: 08/19/2025 [facility] Service Area Work Phone: Comment on above: Expected: 08/19/2024 (Approximate), Expires: 08/19/2025 Start: 08-19-2024 End: 08-19-2025 Hemoglobin A1c/Hemoglobin.total in Blood Hemoglobin A1c Lab Routine Type 2 diabetes mellitus with hyperglycemia, without long-term current use of insulin Expected: 08/19/2024 (Approximate), Expires: 08/19/2025 [facility] Work Phone: Comment on above: Expected: 08/19/2024 (Approximate), Expires: 08/19/2025 Start: 08-11-2024 End: 08-11-2024 Patient encounter procedure 08/11/2024 10:15 AM EDT Office Visit [facility] [address] [place] [phone] Giselle Boykin MD [address] [place] [address] [phone] [facility] Start: 08-04-2024 Hemoglobin A1c measurement Devi betes: Hemoglobin A1C [facility] Start: 08-02-2024 Hemoglobin A1c measurement Devi betes: Hemoglobin A1C [facility] Start: 05-07-2024 End: 05-07-2025 C reactive protein [Mass/volume] in Serum or Plasma C-Reactive Protein Lab Routine Systemic lupus erythematosus, unspecified SLE type, unspecified organ involvement status (Multi) Expected: 05/07/2024, Expires: 05/07/2025 [facility] Work Phone: Comment on above: Expected: 05/07/2024 , Expires: 05/07/2025 Start: 05-07-2024 End: 05-07-2025 Complement C3 [Mass/volume] in Serum or Plasma C3 Complement Lab Routine Systemic lupus erythematosus, unspecified SLE type, unspecified organ involvement status (Multi) Expected: 05/07/2024 (Approximate), Expires: 05/07/2025 [facility] Work Phone: Comment on above: Expected: 05/07/2024 (Approximate), Expires: 05/07/2025 Start: 05-07-2024 End: 05-07-2025 Complement C4 [Mass/volume] in Serum or Plasma C4 Complement Lab Routine Systemic lupus erythematosus, unspecified SLE type, unspecified organ involvement status (Multi) Expected: 05/07/2024 (Approximate), Expires: 05/07/2025 [facility] Work Phone: Comment on above: Expected: 05/07/2024 (Approximate), Expires: 05/07/2025 Start: 05-07-2024 End: 05-07-2025 DNA double strand Ab [Units/volume] in Serum Anti-DNA Antibody, Double-Stranded Lab Routine Systemic lupus erythematosus, unspecified SLE type, unspecified organ involvement status (Multi) Expected: 05/07/2024 (Approximate), Expires: 05/07/2025 [facility] Service Area Work Phone: Comment on above: Expected: 05/07/2024 (Approximate), Expires: 05/07/2025 Start: 05-07-2024 End: 05-07-2025 Erythrocyte sedimentation rate Sedimentation Rate Lab Routine Systemic lupus erythematosus, unspecified SLE type, unspecified organ involvement status (Multi) Expected: 05/07/2024, Expires: 05/07/2025 [facility] Work Phone: Comment on above: Expected: 05/07/2024 , Expires: 05/07/2025 Start: 05-07-2024 End: 05-07-2024 Patient encounter procedure [facility] Start: 05-04-2024 End: 05-04-2025 Microalbumin/Creatinine [Mass Ratio] in Urine Albumin-Creatinine Ratio, Urine Random Lab Routine Type 2 diabetes mellitus with hyperglycemia, without long-term current use of insulin Expected: 05/04/2024 (Approximate), Expires: 05/04/2025 [facility] Service Area Work Phone: Comment on above: Expected: 05/04/2024 (Approximate), Expires: 05/04/2025 Start: 05-03-2024 Lipid panel Lipid Panel [facility] Start: 03-20-2024 End: 03-20-2025 CBC W Auto Differential panel - Blood CBC and Auto Differential Lab Routine Benign essential hypertension Expected: 03/20/2024 (Approximate), Expires: 03/20/2025 [facility] Work Phone: Comment on above: Expected: 03/20/2024 (Approximate), Expires: 03/20/2025 Start: 03-20-2024 End: 03-20-2025 Comprehensive metabolic 2000 panel - Serum or Plasma Comprehensive Metabolic Panel Lab Routine Benign essential hypertension Expected: 03/20/2024 (Approximate), Expires: 03/20/2025 [facility] Work Phone: Comment on above: Expected: 03/20/2024 (Approximate), Expires: 03/20/2025 Start: 03-20-2024 End: 03-20-2025 Hemoglobin A1c/Hemoglobin.total in Blood Hemoglobin A1c Lab Routine Type 2 diabetes mellitus with hyperglycemia, without long-term current use of insulin Expected: 03/20/2024 (Approximate), Expires: 03/20/2025 [facility] Work Phone: Comment on above: Expected: 03/20/2024 (Approximate), Expires: 03/20/2025 Start: 03-20-2024 End: 03-20-2025 Lipid 1996 panel - Serum or Plasma Lipid Panel Lab Routine Mixed hyperlipidemia Expected: 03/20/2024 (Approximate), Expires: 03/20/2025 [facility] Service Area Work Phone: Comment on above: Expected: 03/20/2024 (Approximate), Expires: 03/20/2025 Start: 03-20-2024 End: 03-20-2024 Patient encounter procedure 03/20/2024 10:30 AM EST Office Visit [facility] Medicine [address] [place] [address] Rd [address] [place] [phone] Giselle Boykin MD [address] [place] [id number] [facility] Start: 02-29-2024 End: 02-29-2024 Patient encounter procedure 02/29/2024 3:30 PM EST Office Visit [facility] [id number] [address] Valentino [facility] 5th [place] [address] [place] [address] [address] [place] [address] [facility] Start: 02-01-2024 Hemoglobin A1c measurement Devi betes: Hemoglobin A1C [facility] Start: 02-01-2024 Screening for malign ant neoplasm of colon [facility] Start: 12-02-2023 COVID-19 Vaccine ( season) COVID-19 Vaccine () [facility] Start: 12-02-2023 Covid-19 Vaccine () Covid-19 Vaccine () [facility] Start: 12-02-2023 Influenza vaccination Influenz a Vaccine (#1) [facility] Start: 11-09-2023 Cervical cancer screen Cervica l cancer screen [place], [place] Start: 11-09-2023 Screening for malign ant neoplasm of cervix Cervical cancer screen [place], [place] Start: 11-01-2023 End: 11-01-2023 Patient encounter procedure 11/01/2023 10:30 AM EDT Office Visit [address] [place] [address] Maura Lange MD [address] [place] [address] [address] [place], [place] [phone] [facility] Start: 09-19-2023 End: 09-18-2024 Hemoglobin A1c/Hemoglobin.total in Blood Hemoglobin A1c Lab Routine Type 2 diabetes mellitus with hyperglycemia, without long-term current use of insulin (Multi) Expected: 09/19/2023 (Approximate), Expires: 09/18/2024 [facility] Service Area Work Phone: Comment on above: Expected: 09/19/2023 (Approximate), Expires: 09/18/2024 Start: 09-19-2023 End: 09-19-2023 Patient encounter procedure 09/19/2023 10:30 AM EDT Office Visit [facility]ology [facility] Internal Medicine [address] [place] [phone] Giselle Boykin MD [address] [place] [id number] [facility] Start: 08-01-2023 Hemoglobin A1c measurement Devi betes: Hemoglobin A1C [facility] Start: 05-11-2023 Screening for malign ant neoplasm of breast Mammogram [facility] Start: 05-03-2023 End: 05-03-2024 C reactive protein [Mass/volume] in Serum or Plasma [facility] Work Phone: Comment on above: Expected: 05/03/2023 , Expires: 05/03/2024 Start: 05-03-2023 End: 05-03-2024 CBC W Auto Differential panel - Blood [facility] Work Phone: Comment on above: Expected: 05/03/2023 (Approximate), Expires: 05/03/2024 Start: 05-03-2023 End: 05-03-2024 Complement C3 [Mass/volume] in Serum or Plasma [facility] Work Phone: Comment on above: Expected: 05/03/2023 (Approximate), Expires: 05/03/2024 Start: 05-03-2023 End: 05-03-2024 Complement C4 [Mass/volume] in Serum or Plasma [facility] Work Phone: Comment on above: Expected: 05/03/2023 (Approximate), Expires: 05/03/2024 Start: 05-03-2023 End: 05-03-2024 Comprehensive metabolic 2000 panel - Serum or Plasma [facility] Work Phone: Comment on above: Expected: 05/03/2023 (Approximate), Expires: 05/03/2024 Start: 05-03-2023 End: 05-03-2024 DNA double strand Ab [Units/volume] in Serum [facility] Work Phone: Comment on above: Expected: 05/03/2023 (Approximate), Expires: 05/03/2024 Start: 05-03-2023 End: 05-03-2024 Erythrocyte sedimentation rate [facility] Work Phone: Comment on above: Expected: 05/03/2023 , Expires: 05/03/2024 Start: 05-03-2023 FUV, Provider: Maura Lange, Status: Pen, Time: 10:45 AM FUV, Provider: Maura Lange, Status: Pen, Time: 10:45 AM [facility] Work Phone: Start: 05-03-2023 End: 05-03-2023 Patient encounter procedure 05/03/2023 10:45 AM EST Office Visit [address] [phone] Maura Lange MD [address] [place] [address] [facility] Start: 04-04-2023 Lipid panel Lipid Panel [facility] Start: 03-20-2023 End: 03-20-2024 Hemoglobin A1c/Hemoglobin.total in Blood Hemoglobin A1c Lab Routine Type 2 diabetes mellitus with hyperglycemia, without long-term current use of insulin ([facility]) Expected: 03/20/2023 (Approximate), Expires: 03/20/2024 [facility] Work Phone: Comment on above: Expected: 03/20/2023 (Approximate), Expires: 03/20/2024 Start: 03-20-2023 End: 03-20-2024 Lipid 1996 panel - Serum or Plasma Lipid Panel Lab Routine Mixed hyperlipidemia Expected: 03/20/2023 (Approximate), Expires: 03/20/2024 [facility] Service Area Work Phone: Comment on above: Expected: 03/20/2023 (Approximate), Expires: 03/20/2024 Start: 01-11-2023 FUV, Provider: Giselle Boykin, Status: Pen, Time: 10:30 AM FUV, Provider: Giselle Boykin, Status: Pen, Time: 10:30 AM [facility] Work Phone: Start: 12-01-2022 COVID-19 Vaccine () COVID-19 Vaccine () [facility] Start: 12-01-2022 Influenza vaccination Influenz a Vaccine (#1) [facility] Start: 11-01-2022 FUV, Provider: Maura Lange, Status: Pen, Time: 10:45 AM FUV, Provider: Maura Lange, Status: Pen, Time: 10:45 AM [facility] Work Phone: Start: 10-10-2022 FUV, Provider: Giselle Boykin, Status: Pen, Time: 10:30 AM FUV, Provider: Giselle Boykin, Status: Pen, Time: 10:30 AM [facility] Work Phone: Start: 09-14-2022 Urine screening for protein Diabetes: Urine Protein Screening [facility] Start: 07-03-2022 Hemoglobin A1c measurement Devi betes: Hemoglobin A1C [facility] Start: 05-08-2022 FUVHOSP, Provider: Giselle Boykin, Status: Pen, Time: 9:30 AM FUVHOSP, Provider: Giselle Boykin, Status: Pen, Time: 9:30 AM [facility] Work Phone: Start: 05-03-2022 FUV, Provider: Maura Lange, Status: Pen, Time: 10:45 AM FUV, Provider: Maura Lange, Status: Pen, Time: 10:45 AM [employer] Work Phone: Start: 03-16-2022 FUV, Provider: Giselle Boykin, Status: Pen, Time: 2:30 PM FUV, Provider: Giselle Boykin, Status: Pen, Time: 2:30 PM [facility] Work Phone: Start: 2022 Pneumococcal Vaccine : 50+ (1 of 1 - PCV) Pneumococcal Vaccine: 50+ (1 of 1 - PCV) [facility] Start: 2022 Shingrix Vaccine (1 of 2) Bella grix Vaccine (1 of 2) [facility] Start: 2022 Zoster Vaccines (1 of 2) Zoste r Vaccines (1 of 2) [facility] Start: 12-25-2021 Yearly Adult Physical Yearly Adult P [facility] Start: 12-01-2021 Influenza vaccination INFLUENZA (#1) [facility] Start: 10-27-2021 FUV, Provider: Maura Lange, Status: Pen, Time: 11:45 AM FUV, Provider: Maura Lange, Status: Pen, Time: 11:45 AM [facility] Work Phone: Start: 09-14-2021 FUV, Provider: Giselle Boykin, Status: Pen, Time: 3:15 PM FUV, Provider: Giselle Boykin, Status: Pen, Time: 3:15 PM [facility] Work Phone: Start: 08-31-2021 FUVGENERAL, Provider : Olivia Schmitz, Status: Pen, Time: 2:00 PM FUVGENERAL, Provider: Olivia Schmitz, Status: Pen, Time: 2:[address] Work Phone: Start: 06-02-2021 COVID-19 VACCINE (4 - Booster for Pfizer series) COVID-19 VACCINE (4 - Booster for Pfizer series) [facility] Start: 06-02-2021 COVID-19 Vaccine (4 - Pfizer series) COVID-19 Vaccine (4 - Pfizer series) [facility] Start: 05-16-2021 FUVGENERAL, Provider : Olivia Schmitz, Status: Pen, Time: 2:00 PM FUVGENERAL, Provider: Olivia Schmitz, Status: Pen, Time: 2:00 PM CO-Hmgnncfod-Adunwp 170 DO Work Phone: Start: 04-29-2021 FUV, Provider: Maura Lange, Status: Pen, Time: 11:15 AM FUV, Provider: Maura Lange, Status: Pen, Time: 11:15 AM [facility] Work Phone: Start: 04-02-2021 DEPRESSION ASSESSMENT DEPRESSION [facility] Start: 2021 FUV, Provider: Giselle Boykin, Status: Pen, Time: 10:00 AM FUV, Provider: Giselle Boykin, Status: Pen, Time: 10:00 AM UI-Ijfcmrmlc-Nszmna 170 DO Work Phone: Start: 02-03-2021 FUV, Provider: Giselle Boykin, Status: Pen, Time: 1:00 PM FUV, Provider: Giselle Boykin, Status: Pen, Time: 1:00 PM ZC-Beyhlfrag-XJTJT [place] [address] Work Phone: Start: 11-25-2020 Creatinine measurement Creatinine mo [place], [place] Start: 11-25-2020 Potassium monitoring Potassium monit [place], [place] Start: 11-15-2020 FUVGENERAL, Provider : Olivia Schmitz, Status: Pen, Time: 1:30 PM FUVGENERAL, Provider: Olivia Schmitz, Status: Pen, Time: 1:30 PM [facility] Work Phone: Start: 10-29-2020 FUV, Provider: Maura Lange, Status: Pen, Time: 11:30 AM FUV, Provider: Maura Lange, Status: Pen, Time: 11:30 AM TH-Wybwueegt-BOPQI [place] 5 Work Phone: Start: 12-19-2019 End: 12-19-2019 Office Visit 12/19/2019 Office Visit Obstetrics and Gynecology Rene Gaines MD [address] [place] [address] [phone] [facility] Start: 12-17-2019 Creatinine measurement Creatinine mo nitoring [place], [place] Start: 12-17-2019 Creatinine monitoring Creatinine mon [place], [place] Start: 12-17-2019 Potassium monitoring Potassium monit [place], [place] Start: 12-03-2019 End: 12-03-2019 Appointment 12/03/2019 Appointment General Surgery Rene Gaines MD [address] [place] [address] [phone] Luis Enrique Ventura MD [address] [place] [address] [address] [place] [address] [phone] [facility] General Surgery Start: 12-02-2019 Influenza vaccination Flu vaccine (# 1) [place], [place] Start: 11-12-2019 Creatinine monitoring Creatinine mon [place], [place] Start: 01-31-2019 Potassium monitoring Potassium monit [place], [place] Start: 12-24-2018 End: 12-24-2018 Appointment 12/24/2018 Appointment General Surgery Lucrecia Reich MD [address] [place] [address] [phone] [facility] Surgery Start: 12-01-2018 Influenza vaccination Flu vaccine (# 1) [place], [place] Start: 11-29-2018 End: 11-29-2018 Procedure visit 11/29/2018 Procedure visit Obstetrics and Gynecology Rene Gaines MD [address] [place], [place] [phone] [facility] Start: 11-22-2018 Screening for malign ant neoplasm of cervix [facility] Start: 11-19-2018 End: 11-19-2018 Office Visit 11/19/2018 Office Visit General Surgery Lucrecia Reich MD [address] [place] [address], [address] [place] [address] [phone] Gen Surg - [facility] Start: 11-14-2018 Hospital Encounter [facility] CT Start: 11-10-2018 DIABETES SCREEN DIABETES SCREEN [facility] Start: 08-09-2018 Screening for malign ant neoplasm of colon FIT [facility] Start: 01-06-2018 Urine microalbumin profile DTA P,TDAP,TD (2 - Td or Tdap) [facility] Start: 2017 COLOGUARD (FIT-DNA) COLOGUARD (FIT-D NA) [facility] Start: 2017 Colonoscopy COLONOSCOPY [facility] Start: 2017 COLORECTAL CANCER SCREENING COLORECTAL CANCER SCREENING [facility] Start: [address] COLONOGRAPHY [facility] Start: 2017 FECAL OCCULT BLOOD FECAL OCCULT BLOO D [facility] Start: 2017 LIPID SCREEN LIPID SCREEN [facility] Start: 2017 Screening for malign ant neoplasm of colon [facility] Start: 2017 SIGMOIDOSCOPY SIGMOIDOSCOPY [facility] Start: 02-10-2016 Meningococcal (ACWY) vaccine (2 - Risk 2-dose series) [facility] Start: 12-08-2014 PAP TESTING PAP TESTING [facility] Start: 12-08-2012 Screening for malign ant neoplasm of cervix Cervical Cancer Screening [facility] Start: 2012 Diabetes screen Diabetes screen [facility] Start: 2012 Lipid screen Lipid screen [facility] [place] Start: 2012 Mammography MAMMOGRAM [facility] Start: 2012 Screening for malign ant neoplasm of breast Mammogram Screening [facility] Start: 03-09-2008 SHINGRIX VACCINE (1 of 2) BELLA GRIX VACCINE (1 of 2) [facility] Start: 2002 Cervical cancer screen Cerv[place] Start: 2002 HPV TESTING HPV TESTING [facility] Start: 1993 Cervical cancer screen Cervica l cancer screen [place], [place] Start: 1993 Screening for malign ant neoplasm of cervix HPV/Cotest [facility] Start: 1991 Hepatitis A Vaccines (1 of 2 - Risk 2-dose series) Hepatitis A Vaccines (1 of 2 - Risk 2-dose series) [facility] Start: 1991 Hepatitis B Vaccine (1 of 3 - 19+ 3-dose series) Hepatitis B Vaccine (1 of 3 - 19+ 3-dose series) [facility] Start: 1991 Hepatitis B Vaccines (1 of 3 - 19+ 3-dose series) Hepatitis B Vaccines (1 of 3 - 19+ 3-dose series) [facility] Start: 1991 Pneumococcal vaccination Pneum ococcal Vaccine (1 of 2 - PCV) [facility] Start: 1990 ANNUAL PCP TEAM SERVICE CENTER REPRESENTATIVE ELIZA DISEASE VISIT ANNUAL PCP TEAM CHRONIC DISEASE VISIT [facility] Start: 1990 Anxiety Screening Anxiety Screening [facility] Start: 1990 BP CONTROLLED (<130/80) BP CON TROLLED (<130/80) [facility] Start: 1990 Depression Screening Depression Scre ening [facility] Start: 1990 HEPATITIS C SCREENING HEPATITIS C [facility] Start: 1990 Hepatitis C screening Hepatitis C [facility] Start: 1990 HIV SCREENING HIV SCREENING [facility] Start: 1990 HIV screening HIV Screening [facility] Start: 1987 HIV screen HIV screen [place], [place] Start: 1987 HIV screening HIV screen Rukhsana James [place], [place] Start: 1982 Diabetic foot examination Diabetes: Foot Exam [facility] Start: 1982 Glaucoma screening Diabetes: R etinopathy Screening [facility] Start: 1982 Lipid panel Lipid screen [place], [place] Start: 1982 Meningococcal B vacc ine (1 of 4 - Increased Risk Bexsero 2-dose series) Meningococcal B vaccine (1 of 4 - Increased Risk Bexsero 2-dose series) [place], [place] Start: 1982 Meningococcal B Vacc ine (1 of 4 - Increased Risk) Meningococcal B Vaccine (1 of 4 - Increased Risk) [facility] Start: 1978 PNEUMOCOCCAL (1 - PCV) PNEUMOC OCCAL (1 - PCV) [facility] Start: 1978 Pneumococcal 0-64 ye ars Vaccine (1 of 3 - PCV13) Pneumococcal 0-64 years Vaccine (1 of 3 - PCV13) [place], [place] Start: 1978 Pneumococcal Vaccine : Pediatrics (0 to 5 Years) and At-Risk Patients (6 to 64 Years) (1 - PCV) Pneumococcal Vaccine: Pediatrics (0 to 5 Years) and At-Risk Patients (6 to 64 Years) (1 - PCV) [facility] Start: 1978 Pneumococcal Vaccine : Pediatrics (0 to 5 Years) and At-Risk Patients (6 to 64 Years) (1 of 2 - PCV) Pneumococcal Vaccine: Pediatrics (0 to 5 Years) and At-Risk Patients (6 to 64 Years) (1 of 2 - PCV) [facility] Start: 1974 Meningococcal Vaccin e (1 - Risk 2-dose series) Meningococcal Vaccine (1 - Risk 2-dose series) [facility] Start: 06-05-1973 Hib vaccine (1 of 1 - Risk 1-dose series) Hib vaccine (1 of 1 - Risk 1-dose series) [place] Start: 06-05-1973 HIB Vaccines (1 of 1 - Risk 1-dose series) HIB Vaccines (1 of 1 - Risk 1-dose series) [facility] Start: 1972 HEPATITIS B (1 of 3 - 3-dose series) HEPATITIS B (1 of 3 - 3-dose series) [facility] Start: 1972 Hepatitis B Vaccines (1 of 3 - 3-dose series) Hepatitis B Vaccines (1 of 3 - 3-dose series) [facility] Start: 1972 HIV screening HIV Screening [facility] Start: 1972 Screening for malign ant neoplasm of colon [facility] Start: 1972 Yearly Adult Physical Yearly Adult P hysical [facility] End: 12-24-2018 Blood glucose - POCT Blood glucose - POCT Point of Care Testing STAT One Time for 1 Occurrences starting 12/24/2018 until 12/24/2018 [facility] on above: One Time for 1 Occur rences starting 12/24/2018 until 12/24/2018 End: 01-31-2023 Choriogonadotropin ( test) [Presence] in Urine POCT , urine manually resulted Point of Care Testing Routine Once (Lab) for 1 Occurrences starting 01/31/2023 until 01/31/2023 [facility] Work Phone: Comment on above: Once (Lab) for 1 Occ urrences starting 01/31/2023 until 01/31/2023 End: 11-14-2018 CT Abdomen Pelvis W Contrast CT Abdomen Pelvis W Contrast Imaging Routine Recurrent incisional hernia 1 Occurrences starting 11/14/2018 until 11/14/2018 [facility] on above: 1 Occurrences starti ng 11/14/2018 until 11/14/2018 End: 10-09-2024 DBT Breast - bilateral [facility] Service Area Work Phone: Comment on above: Once for 1 Occurrenc es starting 10/09/2024 until 10/09/2024 [address] [facility] eKene End: 01-31-2023 Glucose [Mass/volume] in Serum or Plasma POCT Glucose Point of Care Testing - Docked Device Routine Once (Lab) for 1 Occurrences starting 01/31/2023 until 01/31/2023 [facility] Work Phone: Comment on above: Once (Lab) for 1 Occ urrences starting 01/31/2023 until 01/31/2023 Incentive spirometry Incentive s pirometry Respiratory Care Routine Q1H PRN until discontinued starting 12/24/2018 [facility] on above: Q1H PRN until discon tinued starting 12/24/2018 Influenza virus A an d B RNA and SARS-CoV-2 (COVID-19) N gene panel - Respiratory specimen by CARLY with probe detection COVID WITH FLUA+B, ROUTINE Microbiology Routine Acute cough 12/31/2021 1:34 PM EDT [facility] Work Phone: Initiate Oxygen Ther apy Protocol Initiate Oxygen Therapy Protocol Respiratory Care Routine Daily until discontinued starting 12/24/2018 [facility] Comment on above: Daily until disconti nued starting 12/24/2018 Lactic acid measurement [facility] End: 01-31-2023 Moderate Sedation Moderate Sedation Procedures Routine Once for 1 Occurrences starting 01/31/2023 until 01/31/2023 [facility] Service Area Work Phone: Comment on above: Once for 1 Occurrenc es starting 01/31/2023 until 01/31/2023 Oxygen therapy [[facility] Data Set] Initiate Oxygen Therapy Protocol Respiratory Care Routine Daily until discontinued starting 12/03/2019 [facility] Comment on above: Daily until disconti nued starting 12/03/2019 POCT GLUCOSE POCT GLUCOSE Poi nt of Care Testing Routine 4X Daily (AC & HS) until discontinued starting 12/03/2019 [facility] Comment on above: 4X Daily (AC & HS) u ntil discontinued starting 12/03/2019 End: 12-24-2018 Pulse Oximetry Spot Check Pulse Oximetry Spot Check Respiratory Care Routine One Time for 1 Occurrences starting 12/24/2018 until 12/24/2018 [facility] Comment on above: One Time for 1 Occur rences starting 12/24/2018 until 12/24/2018 RAPID STREP TEST B/O RAPID STREP TEST B/O Lab Routine Sore throat Ordered: 12/31/2021 [facility] Work Phone: Comment on above: Ordered: 12/31/2021 Spirometry panel Incentive [employer] Respiratory Care Routine Every 2hr while awake until discontinued starting 12/03/2019 [facility] Comment on above: Every 2hr while awak e until discontinued starting 12/03/2019 End: 12-03-2019 Surgical Pathology Surgical Pathology Lab Routine Once for 1 Occurrences starting 12/03/2019 until 12/03/2019 [facility] Comment on above: Once for 1 Occurrenc es starting 12/03/2019 until 12/03/2019 Surgical Pathology Surgical Path ology Lab Routine 12/03/2019 2:34 PM EDT [facility] XR Chest PA and Lateral XR CHEST 2V FRONTAL/LAT Radiology Routine Bronchitis 04/29/2024 3:37 PM EST [facility] Work Phone: End: 05-30-2025 XR Chest PA and Lateral XR CHEST 2V FRONTAL/LAT Radiology Routine Bronchitis 1 Occurrences starting 04/29/2024 until 05/30/2025 [facility] Work Phone: Comment on above: 1 Occurrences starti ng 04/29/2024 until 05/30/2025 NEGATED: Highlighted row has been ruled out! Planned Goals not documented HI-Yfjjjrrtx-Gqmgwy 170 DO Work Phone: Immunizations Immunization Date Immunization Notes Care Provider Fa [facility] 03-20-2024 influenza, seasonal, injectable, preservative free Giselle Boykin MD Work Phone: [facility] Work Phone: 03-20-2024 influenza virus vaccine, unspecified formulation [facility] 1 [facility] Work Phone: 03-20-2023 influenza virus vaccine, unspecified formulation MAXINE BLAIR MD [facility] 03-20-2023 influenza, injectabl e, quadrivalent, preservative free Giselle Boykin MD Work Phone: [facility] Work Phone: 04-07-2021 Pfizer-BioNTCalmSea COVID-19 Vacc 30 MCG/0.3ML Intramuscular Suspension Giselle Boykin Work Phone: [facility] 12-25-2020 influenza, seasonal, injectable Christopher Pluskota DO Work Phone: [facility] Work Phone: 12-25-2020 Seasonal, quadrivale nt, recombinant, injectable influenza vaccine, preservative free Giselle Boykin Work Phone: SA-Drbgkniin-Jgylg a 170 DO Work Phone: 12-25-2020 influenza virus vaccine, unspecified formulation Christopher Pluskota DO Work Phone: [facility] 09-08-2020 Pfizer-BioNTech COVID-19 Vacc 30 MCG/0.3ML Intramuscular Suspension Giselle Boykin Work Phone: [facility] 08-18-2020 Pfizer-BioNTech COVID-19 Vacc 30 MCG/0.3ML Intramuscular Suspension Giselle Boykin Work Phone: [facility] 04-11-2019 influenza virus vaccine, unspecified formulation MAXINE BLAIR MD [facility] 04-11-2019 influenza, high dose seasonal, preservative-free; Translations: [Fluzone High-Dose 0.5 ML Intramuscular Suspension Prefilled Syringe] Maura Lange ON-Mqywybczy-Ibnqt a 170 DO Work Phone: Comment on above: Series: 02-11-2018 influenza virus vaccine, unspecified formulation MAXINE BLAIR MD [facility] 02-11-2018 influenza, injectabl e, quadrivalent, preservative free; Translations: [Fluzone Quadrivalent 0.5 ML Intramuscular Suspension] Maura Lange PP-Jzxnnifte-Tivao a 170 DO Work Phone: Comment on above: Series: 12-14-2016 influenza virus vaccine, unspecified formulation MAXINE BLAIR MD [facility] 12-14-2016 influenza, seasonal, injectable Ángel Vicente DO Work Phone: [facility] Work Phone: 12-14-2016 influenza, injectabl e, quadrivalent, preservative free; Translations: [Fluzone Quadrivalent 0.5 ML Intramuscular Suspension Prefilled Syringe] Maura Lange PO-Pqknztzdf-Ytxoz a 170 DO Work Phone: Comment on above: Series: 12-30-2015 Flu vaccine, quadrivalent, high-dose, preservative free, age 65y+ (FLUZONE) Maura Lange MD Work Phone: [facility] Work Phone: 12-30-2015 Influenza Vaccine, unspecified formulation Roxanna Weaver [facility] [facility] , [place] 12-16-2015 meningococcal polysaccharide (groups A, C, Y and W-135) diphtheria toxoid conjugate vaccine (MCV4P) Giselle Boykin Work Phone: [facility] Work Phone: 12-16-2015 tetanus toxoid, redu geovanna diphtheria toxoid, and acellular pertussis vaccine, adsorbed Giselle E Boykin Work Phone: [facility] Work Phone: 12-16-2015 meningococcal vaccin e of unknown formulation and unknown serogroups Luis Enrique Ventura [facility], [place] 11-26-2015 influenza, seasonal, injectable, preservative free Maura Lange CY-Idlsgftei-Rbbfr a 170 DO Work Phone: Comment on above: Series: 02-18-2015 influenza virus vaccine, unspecified formulation MAXINE BLAIR MD [facility] 02-18-2015 influenza, seasonal, injectable, preservative free; Translations: [Fluarix] Maura Lange ZM-Ljlcoedpe-Njx in a 170 DO Work Phone: Comment on above: Series: 01-13-2008 measles, mumps and rubella virus vaccine Koby Braun [employer] Work Phone: [facility] 01-13-2008 varicella virus vaccine Rick Braun [employer] Work Phone: [facility] 01-07-2008 tetanus toxoid, redu geovanna diphtheria toxoid, and acellular pertussis vaccine, adsorbed Koby Groverfield [employer] Work Phone: [facility] 12-15-2007 tuberculin skin test ; purified protein derivative solution, intradermal Stephanie Wilder [employer] Work Phone: [facility] 11-30-2007 tuberculin skin test ; purified protein derivative solution, intradermal Stephanie Tina [employer] Work Phone: [facility] 09-15-1998 measles, mumps and rubella virus vaccine Giselle Boykin Work Phone: [facility] Work Phone: 09-15-1998 measles/mumps/rubell a virus vaccine MAXINE BLAIR MD [facility] Payers Date Payer Category Payer Self-pay 2022 Medicaid (Managed Care) [id number] 2022 Unknown 2015 Unknown [facility] xxxxxxxxxxxx 2015-Present [phone] [place] [id number] xxxxxxxxxxxx [id number]. [id number] 2002 Medicaid [id number] 1.13.159.2. [id number] 2002 Unknown [id number] 1.2.840.908215.1.13.239.2. 7.3.441987.315 1972 Unknown [id number] 05.18.830.1.754694.3.579.2. 356 1972 Unknown [id number] 2.16840.1.429770.3.579.2. 356 1972 Unknown [id number] 2.16840.1.612842.3.579.2. 356 1972 Unknown [id number] 2.840.1.527075.3.579.2. 356 1972 Unknown [id number] 2.840.1.837571.3.579.2. 356 1972 Unknown [id number] 2.16.840.1.961689.3.579.2. 356 1972 Unknown [id number] 2.16.840.1.999080.3.579.2. 356 1972 Unknown [id number] 2.16.840.1.348759.3.579.2. 356 1972 Unknown [id number] 2.16.840.1.658508.3.579.2. 627 1972 Unknown [id number] 2.16.840.1.294623.3.579.2. 627 1972 Unknown [id number] 2.16.840.1.406788.3.579.2. 627 1972 Unknown [id number] 2.16.840.1.470666.3.579.2. 159 1972 Unknown [id number] 2.16.840.1.211048.3.579.2. 1244 1972 Unknown [id number] 2.16.840.1.461675.3.579.2. 1244 1972 Unknown [id number] 2.16.840.1.474292.3.579.2. 1244 1972 Unknown [id number] 2.16.840.1.120671.3.579.2. 1244 1972 Unknown [id number] 2.16.840.1.062385.3.579.2. 1244 1972 Unknown [id number] 2.16.840.1.352125.3.579.2. 1244 1972 Unknown [id number] 2.16.840.1.051422.3.579.2. 1244 1972 Unknown [id number] 2.16.840.1.118478.3.579.2. 1245 1972 Unknown [id number] 2.16.840.1.838501.3.579.2. 1245 Unknown [id number] 2.16.840.1.155841.3.579.2. 462 Social History Date Type Detail Facility Start: 11-08-2018 End: 10-19-2024 Tobacco smoking status NHIS Never smoker [facility] Start: 11-08-2018 End: 08-19-2024 Alcohol intake No [facility] EDOUARD Start: 1970 Sex Assigned At Not on file M [place], [place] Start: 12-03-2019 End: 01-31-2023 Tobacco use and exposure Never used [place], [place] Start: 12-03-2019 End: 11-17-2021 Alcohol intake Current non-drinker of alcohol (finding) [place] Start: 12-21-2021 End: 08-19-2024 Exposure to SARS-CoV-2 (event) Not sure [place] Start: 01-31-2023 End: 08-19-2024 No alcohol use No alcohol use GG-Dgqszkvwc-JTYLB [place] [facility] Work Phone: 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 Start: 06-08-2022 Gender identity Identifies as female gender (finding) [facility] Work Phone: Start: 06-08-2022 Sexual orientation Heterosexual (fin ding) [facility] Work Phone: Adult Depression Screening Assessment 0 [facility] NEGATED: Highlighted row - - GW-Kkulyzsie-Hhsgor 170 DO Work Phone: NEGATED: Highlighted rowStart: HANNAH History of tobacco use Passive smoker [facility] Medical Equipment Procedure Code Equipment Code Equipment Origin al Text Equipment Identifier Dates Start: 12-14-[address] In Vitro Strip TEST TWICE DAILY. Quantity: 100 Refills: 3 [employer], Emili Start : 14-Dec-2015 Active Start: 12-14-2015 [...] sugar once daily. Record in log book. [id number] Start: 02-05-2020 Use to check fas ting glucose once daily. [id number] Start: 11-05-2023 Use to check fas ting glucose once daily. [id number] Start: 11-05-2023 Use to check fas ting glucose once daily. [id number] Start: 12-04-2023 Functional Status Date Assessment Result Facility 08-19-2024 Patient Health Questionnaire 2 item (PHQ-2) [Reported] [facility] Work Phone: 11-15-2023 Functional Status Independent [facility] 10-02-2023 Functional Status Door open [facility] 10-02-2023 [facility] Functional Status Done [facility] 10-02-2023 Functional Status [facility] 10-01-2023 Functional Status [facility] 10-01-2023 Functional Status Multilevel home [facility] 10-01-2023 Functional Status [facility] 10-01-2023 Functional Status Maintained [facility] 10-01-2023 Functional Status [facility] 09-30-2023 Functional Status Sensory Deficits None [facility] NEGATED: Highlighted row Functional performance Functional status health issues are not documented Disease LJ-Kamkefbth-Tdvogi 170 DO Work Phone: Mental Status Date Assessment Result Facility 10-19-2024 Cognitive function Level Of Cons ciousness Awake;Alert;Appropriate ;Follows Commands [facility] Work Phone: 11-15-2023 Mental Status Orientation Orie nted x 4 [facility] 11-14-2023 Mental Status [facility] 10-02-2023 Mental Status Oriented x 4 [facility] NEGATED: Highlighted row Cognitive function [Interpretation] Cognitive status health issues are not documented Disease [place] 170 DO Work Phone: Clinical Notes 09-16-2020 to 10-19-2024 Note Date & Type Note Facility 10-19-2024 History and physi chandra note [facility] 10-19-2024 Radiology Diagnostic study note [facility] Imaging Services [address] [place] [address] Abdomen/Pelvis W IV Cont ONLY MR#: [id number] Acct: [id number] Name: CHINA ORTIZ Rep #: [id number] : 1970 F 54 From: Kaylyn Stevens MD PCP: Dr. Giselle Boykin MD Status: REG ER Study:Abdomen/Pelvis W IV Cont ONLY Date of E xam: 10/19/24 Exam# [id number] Ordering Dr: Antonio Herrmann MD PROCEDURE: ABDOMEN/PELVIS W IV CONT ONLY 10/19/2024 REASON FOR EXAM: ABD PAIN AND FEVER TECHNIQUE: ABDOMEN/PELVIS W IV CONT ONLY Coronal and Sagittal reconstruction series were provided. CONTRAST: Isovue 370 VOLUME: 98 mL One or more dose reduction techniques were used (e.g., Automated exposure control, adjustment of the mA and/or kV according to patient size, use of iterative reconstruction technique. RADIATION DOSE SUMMARY: CTDlvol: 21.5 mGy DLP: 1237 mGycm COMPARISON: None FINDINGS: Lung bases: There is patchy consolidation and ground-glass opacity in the right lower lobe. Liver: Numerous hypodense lesions throughout the liver, the majority of which are subcentimeter which limits evaluation. A lesion measuring 2.3 cm in the right hepatic lobe is simple fluid density, likely a simple cyst.. Gallbladder: Surgically absent. Spleen: Nodular structure posterior to the stomach measuring 3.6 cm is favored to represent the spleen. Pancreas: The distal pancreatic body and tail appear surgically absent, with a surgical clip near the margin. Pancreatic head is unremarkable. Adrenals: Unremarkable Kidneys: No hydronephrosis or stone. Subcentimeter hypodensities in both kidneys are too small to characterize. Bladder: Collapsed, limiting evaluation Reproductive Organs: Prior hysterectomy. Adnexal regions are unremarkable. Bowel: No obstruction or inflammation. Appendix not well-visualized and may be surgically absent. Lymph nodes: No significant lymphadenopathy. Vasculature: Unremarkable Bones: Degenerative changes of the spine. Soft tissues: Postoperative changes of the midline abdominal wall in keeping with history of prior hernia repairs. CT/Abdomen/Pelvis W IV Cont ONLY IMPRESSION: 1. Patchy consolidation and ground-glass opacity in the right lower lobe, likely representing infection. Recommend repeat imaging in 8-12 weeks to ensure resolution. 2. No acute intra-abdominal abnormality. 3. 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 Correlate with surgical history. If patient had prior splenectomy, recommend further imaging of the structure posterior to the stomach. 4. Numerous splenic hypodensities, majority of which are subcentimeter in size. Consider dedicated liver MRI or CT if patient has risk factors for hepatic malignancy. Reading Location: [facility] CC: Dr. Link Herrmann MD; Dr. Giselle Boykin MD ~ Health Information Management Director: Signed [facility] 10-19-2024 Radiology Diagnostic study note [facility] Imaging Services [address] [place] [address] Chest PA and Lateral MR#: [id number] Acct: [id number] Name: CHINA ORTIZ Rep #: [id number] : 1970 F 54 From: Pet er Peer DO PCP: Dr. Giselle Boykin MD Status: REG ER Study:Chest PA and Lateral Date of Exam: 10/19/24 Exam# [id number] Ordering Dr: Antonio Herrmann MD PROCEDURE: CHEST PA AND LATERAL 10/19/2024 REASON FOR EXAM: FEVER TECHNIQUE: CHEST PA AND LATERAL FINDINGS: Hardware: None Heart: Normal size Mediastinum: Right perihilar adenopathy/infiltrate Lungs: Right lower lobe airspace disease Bones: Negative RAD/Chest PA and Lateral IMPRESSION: Right base pneumonia Reading Location: [facility] CC: Dr. Link Herrmann MD; Dr. 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 REVIEW OF SYSTEMS Review of Systems Constitutional: [...] Wt 86.5 kg (190 lb 11.2 oz) HfB423% BMI 34.88 kg/m BMI: Estimated body mass [...] hypotension. Diastolic BP is a little high today.Continue current meds and healthy habits. Continue to hold hydrochlorothiazide. - repeat BMP. Nausea, vomiting - symptoms for several months. Since last visit, the vomiting resolved. Continues to have nausea, takes Zofran for it about 3 times per week. No new meds or supplements. Needs to seeGI. 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 Recent WBC 14, but also recovering from bronchitis. Repeat CBC today. Follow-up 3 months. [1] Social History Tobacco Use Smoking Status Never Smokeless Tobacco Never documented in this [facility] Work Phone: 1(365) 611-449502-05-2025 History of Present illness Narrative* Giselle Boykin MD - 05/07/2024 11:00 AM EST CHIEF COMPLAINT Diabetes HISTORY OF PRESENT ILLNESS [...] TRIG 106 04/04/2022 No components found for: "CHOLHDL" Lab Results Component Value Date HGBA1C 6.3 [...] triggered. Started prior to 2 stressful events -unexpected of nephew and a bout of bronchitis. [...] try. Follow-up 3 months. [facility] Phone: 1(762) 359-543002-05-2025 Evaluation + Plan note* Assessment & Plan Note - Maura Lange MD - 05/07/2024 10:30 AM ESTAssociated Problem(s): Systemic lupus erythematosus (Multi) No signs of increased disease activity on exam. Pt to continue on plaquenil. Recent labs do show a high wbc which may be due to infection but also worsening renal function and will need to monitor. Lupus labs ordered to evaluate Orders: Anti-DNA Antibody, Double-Stranded; Future C3 Complement; Future C4 Complement; Future C-Reactive Protein; Future Sedimentation Rate; Future [facility] Work Phone: 1(176) 457-645802-05-2025 Evaluation + Plan note* Assessment & Plan Note - Maura Lange MD - 05/07/2024 10:30 AM ESTAssociated Problem(s): Encounter for monitoring of hydroxychloroquine therapy You are on chronic plaquenil. Make sure you see your eye doctor yearly. If you need an eye doctor, let me know and I can place a referral Plaquenil is dosed based on your weight. We will make sure your dose is below the maximum daily dose of 5mg/kg [facility] Work Phone: 1(356) 964-479602-05-2025 History of Present illness Narrative* Maura Lange MD - 05/07/2024 10:30 AM EST Images from the original note were not included. [facility] RHEUMATOLOGY AND INTERNAL MEDICINE RHEUMATOLOGY [...] symptoms Records since last seen reviewed in [facility] Record Patient Active Problem List Diagnosis Date Noted Stage 3b chronic kidney disease (Multi) 05/07/2024 Atypical chest pain 11/01/2023 Memory loss 11/01/2023 Class 2 severe obesity due to excess calories with serious comorbidity and body mass index (BMI) of36.0 to 36.9 in adult 05/03/2023 Encounter for [...] Caffeine use Cyst and pseudocyst of pancreas ([facility]) 01/22/2003 Dental infection 04/18/2023 Diabetes 1.5, managed as type 2 (Multi) Herpes simplex 08/07/2019 History of herpes simplex infection Hyperkalemia 08/26/2020 History of hyperkalemia Hypertension Left anterior knee pain 09/19/2023 emt intermediate (current) use of non-steroidal anti-inflammatories (nsaid) 09/26/2017 [...] (25 mg) by mouth once daily. 90 tablet3 omeprazole (PriLOSEC) [address] capsule Take [...] for back pain, gait problem, joint swelling andmyalgias. Skin: Negative for color change and rash. [...] Protein Screening 09/14/2022 Mammogram 05/11/2023 COVID-19 Vaccine ( season) Never done Assessment/plan Assessment & Plan [...] LDL-C. Manjinder SS et al. RICK. 2013;310(19): 6713-8165 (http://education.Babybe.[employer]/faq/NFY762) CHOL/HDLC RATIO 05/05/2024 2.7 <5.0 (calc) Final [...] 05/05/2024 8.2 mmol/L Final documented in this [facility] Work Phone: 1(854) 783-374602-05-2025 Instructions* Patient Instructions* Maura Lange MD - 05/07/2024 10:30 AM EST It was a pleasure to see you today Please call if your symptoms worsen Please review your summary for education and reminders. Follow up at your next appointment. If you had labs/xrays done today, you will be able to view on larkt. We will contact you when theresults are reviewed for further discussion. Please note that you may receive your results before ave had a chance to review. Please know [...] a diagnosis of lupus cause depression but lupusitself can be the cause of mental health issues. If you feel you need help, please call me or your primary care doctor. We are here for you documented in this [facility] Work Phone: 1(718) 506-131902-05-2025 Miscellaneous Notes* Assessment & Plan Note - Maura Lange MD - 05/07/2024 10:30 AM ESTAssociated Problem(s): Systemic lupus erythematosus (Multi) No signs of increased disease activity on exam. Pt to continue on plaquenil. Recent labs do show a high wbc which may be due to infection but also worsening renal function and will need to monitor. Lupus labs ordered to evaluate Orders: Anti-DNA Antibody, Double-Stranded; Future C3 Complement; Future C4 Complement; Future C-Reactive Protein; Future Sedimentation Rate; Future * Assessment & Plan Note - Maura Lange MD - 05/07/2024 10:30 AM EST Associated Problem(s): Encounter for monitoring of hydroxychloroquine therapy You are on chronic plaquenil. Make sure you see your eye doctor yearly. If you need an eye doctor, let me know and I can place a referral Plaquenil is dosed based on your weight. We will make sure your dose is below the maximum daily dose of 5mg/kg [facility] Work Phone: 1(351) 869-717601-28-2025 History of Present illness Narrative* Anirudh Tidwell RT(R) - 04/29/2024 3:20 PM EST Radiology Service Progress Note PATIENT NAME: China Ortiz DATE OF SERVICE: April 29, 2024 TIME: 3:32 PM PATIENT IDENTITY VERIFICATION COMPLETED USING TWO (2) IDENTIFIERS: Name and Date of confirmedby patient verbally. FALL SCREENING: Has the patient had 2 falls in the last year or 1 fall with injury or currently using an Ambulatory Assistive Device (Walker, Cane, Wheelchair, Crutches, etc.)? No PATIENT GENDER DATA: Assigned female at . status: : No status:NO. PATIENT RELEVANT IMPLANT DATA REVIEWED: Not Applicable PATIENT PRESENTS WITH AN IMPLANTABLE OR ATTACHED PARCEL CONTRACTOR: No RADIOLOGY DEPARTMENT: General X-ray: Exam(s) Completed: Chest X-Ray PERIPHERAL IV DATA: Not applicable SIGNED BY: RT Karan(R) April 29, 2024 3:32 PM documented in [facility]-2025 NoteHNO ID: [id number] Author: ANIRUDH TIDWELL RT(Randolph) Service: ? Author [...] PATIENT PRESENTS WITH AN IMPLANTABLE OR ATTACHED PARCEL CONTRACTOR: No RADIOLOGY DEPARTMENT: General X-ray: Exam(s) Completed: Chest X-Ray PERIPHERAL IV DATA: Not applicable SIGNED BY: RT Karan(R) April 29, 2024 3:32 [facility] Instructions* Patient Instructions* Stephanie Wilder APRN.[employer] - 04/29/2024 2:52 PM EST Images from the original note were not included. - Follow up with PCP in 3-5 days , sooner should any other issues arise. Emergency room if symptoms change or worsen. [facility] [place] [id number] [place] [address] Emergency Department Diagnosis: Assessment ACUTE BRONCHITIS: You [...] Sinusitis Patient Education What is Sinusitis? Sinusitis [ziyu-pit-zpec-tis] is inflammation of the sinuses or swelling [...] humidity and outdoor temperature changes, andstructural changes inthe nose may contribute to sinus pain, pressure [...] help. You may be instructed to take rzjs-lbn-fereffn medications for symptoms. including fever reducers acetaminophen or ibuprofen, nasal saline spray, cough and cold preparations and decongestants as prescribed by the physician, nurse practitioner or physician computer assistant. Self-Care and Prevention: Rest Fluids for hydration Good hand washing Humidifier Avoid smoking and exposure to second hand smoke Avoid sick contacts documented in this [facility]01-28-2025 NoteHNO ID: [id number] Author: STEPHANIE WILDER APRN.CNP Service: ? Author Type: Nurse Practitioner Type: [...] sounds: Normal heart soun (more content not included)...[facility]01-28-[facility] History of Present illness Narrative* Stephanie Wilder APRN.[facility] - 04/29/2024 2:51 PM EST China Ortiz is a 54 year old female who presents with Cough (Cough x 1 week/Vomiting, diarrheaand sore throat x 2-3 days ) China [...] or decreased air movement. Examination of the right- lower field reveals decreased breath sounds. Examination of [...] water gargles, throat lozenges and/or OTC throat sprayas needed and nasal saline gtts and suction [...] if symptoms change or worsen. Stephanie Wilder APRN.MIGUELINA documented in this encounterD[facility]12-19-2024 History of Present illness Narrative* Giselle Boykin MD - 03/20/2024 10:30 AM EST CHIEF COMPLAINT Diabetes and Hypertension HISTORY OF [...] referred her to behavioral medicine, however she wasunable to get an appointment. Would like flu [...] today. Follow-up 2-3 months. documented in this [facility] Work Phone: 1([phone]) 298-358108-27-2024 History of Present illness Narrative* Yasmine Lopez APRN-MIGUELINA - 11/27/2023 11:30 AM EDT Chief Complaint Earache (Left ear pain X-started yesterday morning. Pt states her ear is sore- feels like there is "water" in it-just aches). [...] mouth sores, nosebleeds, postnasal drip, rhinorrhea, sinus pressure,sinus pain, sneezing and sore throat. Respiratory: Positive for cough (dry). Gastrointestinal: Positive for diarrhea (loose stools at baseline). Negative for constipation, nausea, rectal pain and vomiting. Neurological: Positive for dizziness and headaches. Psychiatric/Behavioral: Negative for agitation. The patient is not nervous/anxious. Past Medical History She has a past medical history of Abnormal mammogram (12/07/2022), Acute pancreatitis ([facility]) (01/22/2003), Anxiety, Benign intracranial hypertension (05/22/2018), Caffeine use, Cyst and pseudocystof pancreas ([facility]) (01/22/2003), Dental infection (04/18/2023), Diabetes 1.5, managed as type 2 ( Multi), Herpes simplex (08/07/2019), Hyperkalemia (08/26/2020), Hypertension, Left anterior knee pain (09/19/2023), FPC (current) use of non-steroidal anti-inflammatories (nsaid) (09/26/2017), [...] (Augmentin) 875-125 mg tablet [facility] Work Phone: 1([phone]) 964-845408-15-2024 Hospital Discharge instructions Patient Education 11/14/2023 23:21:01 [...] find the cause of your pain. If needed,you will have tests. Belly pain has many [...] foods again, start with small amounts of ggnr-lw-bmtkne, low- fat foods. These include apple sauce, toast, or [...] increase stomach acid. Don't use aspirin or lvat-mdz-cowfioh pain and fever medicines, if possible. This includes nonsteroidal anti-inflammatory drugs (NSAIDs). Lose excess weight. Finish eating at least 2 hours before you go to bed or lie down. Raise the head of your bed. 7416-6301 [employer]. [address] [place] [address]. All rights reserved. This information is not intended as a substitute for professional medical care. Always follow yourhealthcare professional's instructions. Follow Up Care 11/14/2023 18:40:52 With:GISELLE BOYKIN MD Address: [address] [place] [address] [address] [place] [address]- [phone] When:2-4 days [facility] 08-15-2024 Emergency department Discharge summary Discharge Instructions Thank you for allowing [place] to assist you with your healthcare needs. The following is importantdischarge information regarding your hospital visit. Diagnosis from Today's Visit Abdominal pain What to Do Next Instructions from Your Care Team No qualifying data available. Post Acute Orders No qualifying data available. You Need to Schedule the Following Appointments Follow Up with GISELLE BOYKIN MD When:Within 2-4 days Where:[address] [place] [address] [address] [place] [address]- [phone] Allergies Artificial sweetners Migraine Dilaudid Medications Please ask your primary doctor or pharmacist before taking any other medication not listed, including over the counter drugs, herbal medications, vitamins and or supplements as they may interact withur home medications. What How Much When Why [...] find the cause of your pain. If needed,you will have tests. Belly pain has many [...] foods again, start with small amounts of bmdj-va-gjvrdq, low- fat foods. These include apple sauce, toast, or [...] increase stomach acid. Don't use aspirin or zqzb-bwd-fsecilr pain and fever medicines, if possible. This includes nonsteroidal anti-inflammatory drugs (NSAIDs). Lose excess weight. Finish eating at least 2 hours before you go to bed or lie down. Raise the head of your bed. 6716-1589 [employer]. [address] [place] [address]. All rights reserved. This information is not intended as a substitute for professional medical care. Always follow yourhealthcare professional's instructions. Additional Information VACCINATE! IT SAVES LIVES! Members of the community who have not yet received the COVID-19 vaccine and would like to receive it can visit one of [facility] vaccine clinics. There are many vaccine clinic locations within the [facility]. For locations and available times, please visit www.gettheshot.coronavirus.[place].gov/. It is important to note that some COVID mobile vaccine clinics are held outdoors and may be canceled in rainy or stormy conditions. To learn more about pediatric vaccinations (ages 5-11), we invite you to visit the [facility] webpage. https://www.[facility].org/pages/1371-Zjmvz-Beqnatpzdlm-Irmsxfmhkc-Lpyhy-Sul stions.htmlTo learn more about the COVID-19 vaccine, we invite you to visit the CDC website for a list of frequently asked questions. https://www.cdc.gov/coronavirus/2019-ncov/vaccines/faq.html [facility] Patient Portal Access Instructions: Stay connected with your healthcare team and access your personal medical information anytime with the [facility] Patient Portal. If you would like a full copy of your medical records please contact the [facility] Medical Records Department Sunday through Sunday between 8a.m. and 4:30p.m. Please follow the directions below to access the portal: 1.Access the email account you provided upon registration to the [facility].2.Look for an invitation email from [facility].3.Open the email and access the invitation link: Accept Invitation to [facility]4.Fill in the required locke to create your account. Sign into [email or web address] with your username and password that you [...] you will allow to register on the [employer] Patient Portal for access to your information. You can also access the [employer] Patient Portal on the Playmysong. Simply click on "Health Records" under "HealthData" and then click on the Bill logo. HOW TO SAFELY DISPOSE OF PRESCRIPTION MEDICATIONS Please use one of the following methods to safely dispose of your unused medications. 1.Use a drug disposal kit: the drug disposal pouch allows you to safely discard your old and unuseddrugs. Ask your nurse to give you one when you are discharged.2.Visit a local take-back location: Many local pharmacies and police departments have programs that collect old and unwanted prescriptiondrugs. Call your local pharmacy or go to http://[employer]/9Y4Pa5e to find one close to you.3.Make use of household items: Use cat litter or old coffee grounds to dispose medications if other options arenot available. Mix your drugs with these household products, seal them in an airtight container andthrow it into the garbage. Call [facility]: [phone] to be sure your drugs can be [...] drowsiness, such as benzodiazepines, also known as benzos,including diazepam and alprazolam, muscle relaxants or sleep aids. Never sell or share prescriptionopioids. This is illegal. Store opioids in a [...] questions, I am aware that I should contactmy doctor. 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 Avoid any activities that cause chest pain. [...] 12/27/2005 Document Revised: 09/19/2018 Document Reviewed: 09/19/2018 [employer] Patient Education 2020 [employer]. Follow Up Care 09/30/2023 14:05:24 With:VICKY HERNANDEZ MD Address: [address] [facility] [address] [place] [address]- When:5 to 7 days Comments:Follow up with general cardiology within 1 week. With:Follow up with primary care provider Address: When:5 to 7 days Comments:Follow-up with your PCP within 1 week With:PINEDA ROSSI Address: [address] [facility] [address] [place] [address]- When:10/29/2023 13:00:00 With:GISELLE BOYKIN MD Address: [address] [place] [address]- When:1-2 days Comments:Please call the office to schedule a hospital follow-up appointment. [facility] 07-02-2024 Note Discharge Instructions Thank you for allowing [facility] to assist you with your healthcare needs. The following is importantdischarge information regarding your hospital visit. Your Care Team GISELLE BOYKIN MD What to do next Scheduled Follow-Up Appointments Appointment Type When With Where Contact Information StatusCV OV 10/29/2023 01:00 PM EDT PINEDA ROSSI [facility] Confirmed Follow Up Appointments Follow Up with VICKY HERNANDEZ MD When:Within 5 to 7 days Where:[address] [facility] [address] [place] [address]- Additional Information: Follow up with general cardiology within 1 week. Follow Up with Follow up with primary care provider When:Within 5 to 7 days Additional Information: Follow-up with your PCP within 1 week Follow Up with GISELLE BOYKIN MD When:Within 1-2 days Where:[address] [place] [address] [address] [place] [address]- Additional Information: Please call the office to schedule a hospital follow-up appointment. Follow Up with PINEDA ROSSI When:10/29/2023 01:00 PM EDT Where:[address] [facility] [place] [address]- The Following Activity and Diet Have Been [...] and or supplements as they may interact withyour home medications. What How Much When Instructions [...] Follow these instructions at home: Medicines Take uqqd-vbo-mnonwft and prescription medicines only as told by [...] health care provider about them or any newsymptoms. Avoid any activities that cause chest pain. [...] 12/27/2005 Document Revised: 09/19/2018 Document Reviewed: 09/19/2018 [employer] Patient Education 2020 [employer] Additional Information VACCINATE! IT SAVES LIVES! Members of the community who have not yet received the COVID-19 vaccine and would like to receive it can visit one of [facility] vaccine clinics. There are many vaccine clinic locations within the [facility]. For locations and available times, please visit https://[email or web address].[place].gov/. It is important to note that some COVID mobile vaccine clinics are held outdoors and may be canceled in rainy or stormy conditions. To learn more about pediatric vaccinations (ages 5-11), we invite you to visit the [facility] webpage. https://www.[employer].org/pages/9706-Yhtnm-Jhzzzylmslq-Oteivabddw-Glxjz-Rtw stions.htmlTo learn more about the COVID-19 vaccine, we invite you to visit the CDC website for a list of frequently asked questions.https://www.cdc.gov/coronavirus/2019-ncov/vaccines/faq.html [employer] Patient Portal Access Instructions: Stay connected with your healthcare team and access your personal medical information anytime with the [employer] Patient Portal. Please follow the directions below to create your [employer] account: 1.Access the email account you provided upon registration to the hospital/physician office.2.Look for an invitation email from [facility].3.Open the email and access the invitation link: AcceptInvitation to [employer].4.Fill in the required locke to create your account. To access your account, visit [employer]. Click the blue button labeled "Access Patient Portal" and then log in with the username and password that you created in the steps above. You will be able to view your test results, lab results, a summary of your visits, upcoming appointments and more. There is also a convenient messaging option where you can send secure messages to your p rovider. In addition, you will have the ability to download any documents or summaries to your computer and/or send the information securely to a physician. Remember that your healthcare information is confidential, so carefully consider who you will allowto register on the [facility] Patient Portal for access to your information. You can also access the [facility] on the [facility]. Simply click on "Patient Portal" and then log into your account. If you would like to receive a full copy of your medical records, please contact the [facility] Medical Records Department by calling [phone], Sunday through Sunday between 8 a.m. and 4:30 p.m. HOW TO SAFELY DISPOSE OF PRESCRIPTION MEDICATIONS Please use one of the following methods to safely dispose of your unused medications. 1.Use a drug disposal kit: the drug disposal pouch allows you to safely discard your old and unuseddrugs. Ask your nurse to give you one when you are discharged.2.Visit a local take-back location: Many local pharmacies and police departments have programs that collect old and unwanted prescriptiondrugs. Call your local pharmacy or go to http://[employer]/2W2Hp6y to find one close to you.3.Make use of household items: Use cat litter or old coffee grounds to dispose medications if other options arenot available. Mix your drugs with these household products, seal them in an airtight container andthrow it into the garbage. Call [facility]: [phone] to be sure your drugs can be [...] questions, I am aware that I should contactmy doctor. 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 Signature: Date/Time: Relationship to Patient: Witness Name/Signature: Date/Time: [facility] [id number] Discharge summary Date of Service 10/02/23 Discharge Diagnosis Arm pain-intermittent ([id number] - PNED) Back pain ([id number] - PNED) Chest pain ([id number] - PNED) Nausea ([id number] - PNED) Hospital Course Chest pain, ACS rule out Unstable angina Hypertension Anemia History of SLE Type 2 diabetes GERD Anxiety Plan Patient is a 53-year-old female who presented with chest pain concerning for cardiac in nature and underwent pharmacological stress test which is pending formal read. Preliminary read is negative forany inducible ischemia with evidence of scaling artifact and apical thinning, EF 60%. Surface echo was not able to completed prior to discharge and this can be done upon follow-up with cardiology outpatient.She is being discharged home with instructions to follow- up with cardiology as well as PCP outpatient. Allergies Artificial sweetners Migraine Dilaudid Procedures stress test Consults Consult to Case Management/Social Service (Case Management/Social Service Consult) (Consult to CaseManagement) - Ordered -- 09/30/23 17:18:00 EDT, Discharge [...] When:Within 5 to 7 days Where:[address] [facility] [address] [place] [address]- Additional Information: Follow up with general cardiology within 1 week. Follow Up with Follow up with primary care provider When:Within 5 to 7 days Additional Information: Follow-up with your PCP within 1 week Follow Up with GISELLE BOYKIN MD When:Within 1-2 days Where:[address] [place] [address]- Additional Information: Please call the office to schedule a hospital follow-up appointment. Follow Up with PINEDA ROSSI When:10/29/2023 01:00 PM EDT Where:[address] [place] [address] [address] [place] [address]- Follow Up Appointments No qualifying data available. [...] PM Digitally Signed by VICKY HERNANDEZ MD [facility] [id number] Note Date of Service 10/02/2023 Procedure: Regadenoson [...] negative for inducible ischemia. The results of thenuclear portion of the stress test will be reported separately. See addendum to this note by the attending physician for additional comments. Digitally Signed by JACKIE JAMIL MD on 10/02/2023 09:50 AM Digitally Signed by ROBBIE LIVINGSTON MD [facility] HospitalSaqlfkyb18-15-2049 Note ORIGINAL NM MYOCARDIAL SPECT STRESS/REST CLINICAL STATEMENT: chest pain TECHNIQUE: Lexiscan dose: 0.4 mg Radiopharmaceutical (stress): Tc-99m Sestamibi Dose:27 mCi Radiopharmaceutical (rest): Tc-99m Sestamibi Dose:8 mCi SPECT acquisition and processing Reconstruction and reorientation of SPECT images into short axis, vertical and horizontal long axisplanes Quantitative LVEF assessment COMPARISON:None REPORT: Overall image [...] PM Sign Date: 10/02/2023 8:31:57 PM Ordering Provider:[facility]07-01-2024 History and physical note Date of Service [...] in onset, non-progressive, near multiple episodes throughout theday, waxes and waning in severity, dull aching type, severity at max of 4/10, radiating to the leftupper arm and to the back. Today morning the pain lasted for more than 40 minutes that prompted herto come to the ED. Denies shortness of breath, cough, PND, palpitations Denies abdominal pain Denies bowel respiratory disturbances ED course: In ED, the patient was vitally stable. Her initial labs were suggestive of normal CBC, BMP, hepaticpanel, negative troponins x 2 and an elevated [...] HR: 65 (Monitored) RR: 17 BP: 136/70 SpO2:98% HT: 157.5 cm WT: 91.1 kg BMI: [...] that is worsening and today morning episode wassevere enough to come to the ED. EKG: [...] ROBERT MONCADA MD on 10/01/2023 09:01 AM [facility] [id number] History and physical note Date of Service [...] in onset, non-progressive, near multiple episodes throughout theday, waxes and waning in severity, dull aching type, severity at max of 4/10, radiating to the leftupper arm and to the back. Today morning the pain lasted for more than 40 minutes that prompted herto come to the ED. Denies shortness of breath, cough, PND, palpitations Denies abdominal pain Denies bowel respiratory disturbances ED course: In ED, the patient was vitally stable. Her initial labs were suggestive of normal CBC, BMP, hepaticpanel, negative troponins x 2 and an elevated [...] HR: 65 (Monitored) RR: 17 BP: 136/70 SpO2:98% HT: 157.5 cm WT: 91.1 kg BMI: [...] that is worsening and today morning episode wassevere enough to come to the ED. EKG: [...] ROBERT MONCADA MD on 10/01/2023 09:01 AM [facility] [id number] NoteSINUS RHYTHM Electronic Signature: ROBBIE LIVINGSTON MD 10/02/2023 14:46:31[facility] 06-30-2024 NoteSINUS RHYTHM Electronic Signature: ROBBIE LIVINGSTON MD 10/02/2023 14:46:27[facility] 06-30-2024 Note ORIGINAL EXAMINATION: ONE XRAY VIEW OF [...] by: Rustam Soto MD Preliminary Report By: Mika Verde Electronically signed By Rustam Soto MD Dictated Date: 09/30/2023 2:27:47 PM Prelim Date: 09/30/2023 2:29:28 PM Sign Date: 09/30/2023 2:49:27 PM Ordering Provider: [facility]06-30-2024 NoteSINUS RHYTHM Electronic Signature: MD MARCY VERONICA MD 09/30/2023 16:24:27[facility] 06-30-2024 Evaluation + Plan noteExtracted from: Title:History and Physical Author:ROBERT MONCADA MD [...] Appointment Date:10/29/2023 01:00:00 PM Scheduled Provider:PINEDA ROSSI Location:CV CAN Appointment Type:CV [facility] 06-19-2024 History of Present illness Narrative* Giselle [...] Wt 91 kg (200 lb 11.2 oz) KiH928% BMI 36.71 kg/m BMI: Estimated body mass [...] fibrous papule, will refer to derm to lex for possible BCC and for full skin check. Left knee pain - possible mild patellar arthritis or strain. I encouraged quad strengthening exercises, can try [employer] on YouTube. Rest, ice, brace when in flare-up. If home exercises failto help, I encouraged her to contact me for formal PT referral. Follow-up 6 months. [facility]: 1(622) 855-277502-01-2024 Evaluation + Plan note* Assessment & Plan Note - Maura Lange MD - 05/03/2023 12:00 PM ESTAssociated Problem(s): Systemic lupus erythematosus (CMS/HCC) Lupus on plaquenil therapy. More musculoskeletal complaints in the setting of situational depression. Labs ordered today to monitor for increased disease activity, end organ manifestations and to monitor for any drug toxicities due to chronic medications [facility] Work Phone: 1(296) 270-119902-01-2024 Miscellaneous Notes* Assessment & Plan Note - [...] yearly. Managed by PCP [facility] Phone: 1(762) 600-913002-01-2024 Evaluation + Plan note* Assessment & Plan [...] below the maximum daily dose of 5mg/kg [facility] Work Phone: 1(656) 970-679302-01-2024 Evaluation + Plan note* Assessment & Plan Note - Maura Lange MD - 05/03/2023 11:54 AM ESTAssociated Problem(s): Situational depression Under stress --dad has prostate cancer. Counselling done [facility] Work Phone: 1(279) 742-251002-01-2024 Evaluation + Plan note* Assessment & Plan Note - Maura Lange MD - 05/03/2023 11:53 AM ESTAssociated Problem(s): DM2 (diabetes mellitus, type 2) ([facility]) Chronic Condition Documentation: Stable based on symptoms and exam. Continue established treatment plan and follow-up at least yearly. Managed by PCP [facility] Work Phone: 1(249) 622-992702-01-2024 History of Present illness Narrative* Maura Lange [...] index (BMI) of35.0 to 35.9 in adult ([facility]) 05/03/2023 Encounter for monitoring of hydroxychloroquine therapy 04/29/2023 Abnormal mammogram 12/07/2022 Anemia 12/07/2022 Asplenia 12/07/2022 Benign essential hypertension 12/07/2022 Chronic diarrhea 12/07/2022 Chronic migraine without aura, with intractable migraine, so stated, with status migrainosus 12/07/2022 DM2 (diabetes mellitus, type 2) ([facility]) 12/07/2022 GERD (gastroesophageal reflux disease) 12/07/2022 Mixed hyperlipidemia 12/07/2022 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 Situational anxiety 12/07/2022 Situational depression 12/07/2022 Systemic lupus erythematosus ([facility]/HCC) 12/07/2022 Vitamin D deficiency 12/07/2022 Liver hemangioma 12/07/2022 Past Medical History: Diagnosis Date Acute pancreatitis 01/22/2003 Anxiety Benign intracranial hypertension 05/22/2018 Pseudotumor cerebri Caffeine use Cyst and pseudocyst of pancreas 01/22/2003 Dental infection 04/18/2023 Diabetes 1.5, managed as type 2 (CMS/HCC) Herpes simplex 08/07/2019 History of herpes simplex infection Hyperkalemia 08/26/2020 History of hyperkalemia Hypertension FPC (current) use of non-steroidal anti-inflammatories (nsaid) 09/26/2017 [...] This Visit DM2 (diabetes mellitus, type 2) ([facility]) Current Assessment & Plan Chronic Condition Documentation: Stable based on symptoms and exam. Continue established treatment plan and follow-up at least yearly. Managed by PCP GERD (gastroesophageal reflux disease) Relevant Medications omeprazole (PriLOSEC) [address] ariadna Situational depression Current Assessment & Plan Under stress --dad has prostate cancer. Counselling done Systemic lupus erythematosus ([facility]) - Primary Current Assessment & Plan Lupus [...] index (BMI) of35.0 to 35.9 in adult ([facility]) Follow up: ___6__months [facility] Work Phone: 1(777) 177-611502-01-2024 Instructions* Patient Instructions* Maura Lange MD - 05/03/2023 10:45 AM EST It was a pleasure to see you today Please call if your symptoms worsen Please review your summary for education and reminders. Follow up at your next appointment. If you had labs/xrays done today, you will be able to view on knowNormal. We will contact you when theresults are reviewed for further discussion. Please note that you may receive your results before [facility] had a chance to review. Please know [...] exams Get your immunizations documented in [facility] Work Phone: 1(354) 506-673812-19-2023 History of Present illness Narrative* Giselle Boykin [...] 6 months and PRN. documented in this [facility] Work Phone: 1(241) 644-989211-01-2023 Note* Significant Event - Jennifer Melo RN - 01/31/2023 10:[address] Vicente at bedside speaking with pt and niece Pt katie PO [facility]11-01-2023 Note* Significant Event - Jennifer Melo RN - 01/31/2023 10:[address] Vicente at bedside speaking with pt and niece Pt katie PO [facility]11-01-2023 Miscellaneous Notes* Significant Event - Jennifer Melo RN - 01/31/2023 10:[address] Vicente at bedside speaking with pt and niece Pt katie PO documented in this [facility] Work Phone: 1([phone]) 528-327911-01-2023 Hospital Discharge instructions* Discharge Instructions* Jennifer Melo [...] ofhaving your procedure, call the [facility] to be advised whether a visit to [...] discharge from the GI Lab, please call: [phone] from 7 am- 4:30 pm. In the event of an emergency please go to the closest Emergency Department or call Dr. Vicente [phone] documented in this [facility] Work Phone: 1(807) 947-868911-01-2023 History and physical note* Ángel Vicente, - 01/31/2023 9:00 AM EDT Outpatient Hospital Procedure H&P Patient Profile-Procedures Name China Ortiz Date of 1970 [address] [place] [id number] [place] [id number] Primary Secondary Phone Number PCP Giselle Boykin Procedure(s): Colonoscopy Primary contact name and number Extended Emergency Contact Information Primary Emergency Contact: Lizeth Hood Address: [address] [place], [place] [id number] [facility] Relation: Sibling General Health Weight Vitals: 01/31/23 0911 Weight: 88.9 kg (196 lb) BMI Body mass index is 35.85 kg/m . Allergies Allergies Allergen Reactions Bacitracin Other Hydromorphone Hives and Other Sulfamethoxazole-Trimethoprim Other Past Medical History Past Medical History: Diagnosis Date Anxiety Benign intracranial hypertension 05/22/2018 Pseudotumor cerebri Diabetes 1.5, managed as type 2 ([facility]) Encounter for gynecological examination (general) (routine) without abnormal findings 11/23/2015 Pap smear, as part of routine gynecological examination Hypertension FPC (current) use of non-steroidal anti-inflammatories (nsaid) 09/26/2017 [...] met Ángel Vicente DO 01/31/2023 9:24 AM [facility] Work Phone: 1([phone]) 498-596411-01-2023 History and physical note* Ángel Vicente DO - 01/31/2023 9:00 AM EDT Outpatient Hospital Procedure H&P Patient Profile-Procedures Name China Ortiz Date of [address] [place] [id number] [place] [id number] Primary Secondary Phone Number Giselle Ramos Procedure(s): Colonoscopy Primary contact name and number Extended Emergency Contact Information Primary Emergency Contact: Lizeth Hood Address: [address] [place] [address] of Gabriella Relation: Sibling General Health Weight Vitals: 01/31/23 0911 Weight: 88.9 kg (196 lb) BMI Body mass index is 35.85 kg/m . Allergies Allergies Allergen Reactions Bacitracin Other Hydromorphone Hives and Other Sulfamethoxazole-Trimethoprim Other Past Medical History Past Medical History: Diagnosis Date Anxiety Benign intracranial hypertension 05/22/2018 Pseudotumor cerebri Diabetes 1.5, managed as type 2 ([facility]) Encounter for gynecological examination (general) (routine) without abnormal findings 11/23/2015 Pap smear, as part of routine gynecological examination Hypertension emt intermediate (current) use of non-steroidal anti-inflammatories (nsaid) 09/26/2017 [...] DO 01/31/2023 9:24 AM documented in this [facility] Work Phone: 1([phone]) 234-234501-17-2023 History of Present illness Narrative* Here today for hospital follow-up. * On 04/18, was driving home and started having severe right upper abdominal pain. * Acutely nauseated, had to plant puller to throw up. * Made her way home and then daughter drove her to ER at [place]. * Given IV fluids, had CT scan, [...] See above re: CT. * Labs unremarkable. [facility] Work Phone: [phone]) 498-942101-17-2023 History of Present illness Narrative* Here today for hospital follow-up. * On 04/18, was driving home and started having severe right upper abdominal pain. * Acutely nauseated, had to plant puller to throw up. * Made her way home and then daughter drove her to ER at [place]. * Given IV fluids, had CT scan, [...] See above re: CT. * Labs unremarkable. [facility] Work Phone: 1(705) 839-740010-01-2022 Influenza virus A and B RNA and SARS-CoV-2 (COVID-19) N gene panel CARLY+probe (Resp)COVID 19 RESULT: SARS-CoV-2 (Agent of COVID-19) Not Detected by RT-PCR or equivalent method. antoni WTOH-GpI-[employer] (CB)_EUA This test was developed and its performance characteristics determined by [facility] [place]. This test has been authorized by FDA under an Emergency Use Authorization (EUA). This test has been validated in accordance with the FDA's Guidance Document Policy for DiagnosticsTesting in Laboratories Certified to Perform High Complexity Testing under CLIA prior to Emergency use Authorization for Coronavirus Disease 2019 during the Public Health Emergency" issued on May 31, 2019. Test performed by [facility], Erick Knapp [facility] [place], [facility] [place] [address]. INFLUENZA A PCR: Negative for Influenza A by RT-PCR INFLUENZA B PCR: Negative for Influenza B by RT-PCRWestern Reserve HospitalComment on above: Performed By: #### [id number] #### [facility] CLIA [id number] [address] [place] [address] [place] [id number] NoteHNO ID: [id number] Author: Koby Braun APRN.[employer] Service: ? Author Type: Nurse Practitioner Type: Progress Notes Filed: 12/31/2021 2:26 PM Note Text: This note was created using Systems Maintenance Servicesriter. Subjective China Ortiz is a 51 year old female with pmh of PAST MEDICAL HISTORY Diagnosis Date Acute pancreatitis 09/2002 3 previous bouts Cyst and pseudocyst of pancreas 2002 Family history of diabetes mellitus Lupus (HCC) Migraine without aura Presents to [facility] of cough and congestion Patient complains [...] TABLET, EXTENDED RELEASE 12 HR Koby Braun APRN.[facility]IGUELINAWestern Reserve Hospital10-01-2022 History of Present illness Narrative* Koby Braun APRN.[employer] - 12/31/2021 1:12 PM EDT This note was created using NoteWriter. Subjective China Ortiz is a 51 year old female with pmh of PAST MEDICAL HISTORY Diagnosis Date Acute pancreatitis 09/2002 3 previous bouts Cyst and pseudocyst of pancreas 2002 Family history of diabetes mellitus Lupus (HCC) Migraine without aura Presents to [facility] of cough and congestion Patient complains [...] TABLET, EXTENDED RELEASE 12 HR Koby Braun APRN.[employer] [facility] History of Present illness Narrative* Doing well on current medications. * Fasting for labs. * States fasting blood sugar 120-130. * Checks BP infrequently at home, not currently dizzy. -[facility] Work Phone: [phone] 110-299206-01-2022 History of Present illness Narrative* Current migraine [...] her out. * Endorses trouble staying asleep. [id number] 170 DO Work Phone: 1([phone]) 215-965806-17-2021 History of Present illness Narrative* Migraines have increased in frequency in past 1.5 months. * Had not had a migraine in several months prior to that. * Past 1.5 months has been 2-3 per week. * Endorses many changes and stress over this time period. Niece moved home to [facility] and is due fordelivery of baby any [...] lupus. * Vaccine 2nd dose in august [place] [address] DO Work Phone: Chief complaint Narrative - Reported* Neurologic Evaluation. * Yearly follow up migraine management [place] 170 DO Work Phone: [place] complaint Narrative - Reported* Neurologic Evaluation. * Follow up migraine management [place] [address] DO Work Phone: Evaluation note* Diagnosis Acute cough- Primary Sore throat Acute pharyngitis Viral URI with cough Acute upper respiratory infections of unspecified site [facility] Diagnosis Encounter for screening for malignant neoplasm of colon documented in this encounter [facility] Work Phone: Evaluation note* Diagnosis Encounter for screening for malignant neoplasm of colon documented in this encounter [facility] Work Phone: Evaluation note* Diagnosis Benign essential hypertension- Primary Essential hypertension, benign Mixed hyperlipidemia Type 2 diabetes mellitus with hyperglycemia, without long-term current use of insulin ([facility]) Anemia, unspecified type Systemic lupus erythematosus, unspecified SLE type, unspecified organ involvement status ([facility]) documented in this encounter [facility] Work Phone: Evaluation note* Diagnosis Systemic lupus erythematosus, unspecified SLE type, unspecified organ involvement status ([facility])- Primary Encounter for monitoring of hydroxychloroquine therapy Gastroesophageal reflux disease without esophagitis Esophageal reflux Type 2 diabetes mellitus with hyperglycemia, without long-term current use of insulin ([facility]) Situational depression Class 2 severe obesity due to excess calories with serious comorbidity and body mass index (BMI) of 35.0 to 35.9 in adult ([facility]) documented in this encounter [facility] Work Phone: Evaluation note* Diagnosis Benign essential hypertension- Primary Essential hypertension, benign Skin lesion of chest wall Screening for skin cancer Screening for malignant neoplasm of the skin Type 2 diabetes mellitus with hyperglycemia, without long-term current use of insulin (Multi) Left anterior knee pain documented in this encounter [facility] Work Phone: Evaluation note* Diagnosis Systemic lupus [...] media type- Primary documented in this encounter [facility] Work Phone: Evaluation note* Diagnosis Systemic lupus [...] Anxiety state, unspecified documented in this encounter [facility] Work Phone: Evaluation note* Diagnosis Bronchitis Bronchitis, not specified as acute or chronic documented in this encounter [facility] note* Diagnosis Bacterial sinusitis- Primary Unspecified sinusitis (chronic) Bronchitis Bronchitis, not specified as acute or chronic [facility]* Diagnosis Systemic lupus erythematosus, unspecified SLE [...] of hydroxychloroquine therapy documented in this encounter [facility] Work Phone: Evaluation note* Diagnosis Systemic lupus [...] Leukocytosis, unspecified type documented in this encounter [facility] Work Phone: Evaluation note* Diagnosis Systemic lupus [...] Leukocytosis, unspecified type documented in this encounter [facility] Work Phone: Evaluation note* Diagnosis Systemic lupus [...] for screening mammogram documented in this encounter [facility] Work Phone: History and physical note Author Joycelyn Crowley [facility] Note Date/Time October 19, 2024 7:45 pm [facility] System Medical Records Department [address] [place] [address] H&P Exam - Hospitalist 10/19/241917 MR#: [id number] Acct: [id number] Name: CHINA ORTIZ Rep #:[id number] : 1970 54 From: Joycelyn Crowley MD PCP: Dr. Giselle Boykin MD Status: ADM IN Location: U EAB101- 1 HPI - General General Date of Admission: 10/19/24 Date of Service: 10/19/24 Chief Complaint: Aches HPI Narrative CHINA ORTIZ, is a 54-year-old female history of multiple abdominal surgeries,diabetes, GERD, high cholesterol, depression and anxiety presented [facility] ED 10/19/2024 with fever, chills, nausea and vomiting since Sunday. She has chronic abdominal pain but has been having some right flank pain which is abnormal for her. Patient was concerned as she felt similar to when she had been septic in the past so she came to the ED. In the ED temp 101.2, heart rate 121, blood pressure 165/79, respiratory rate 26 and pulse ox 94% on room air. CBC with white blood cell count of 27.8 with left shift. CMP with sodium 132, bicarb 19.8, BUN 12 with a creatinine of 1.57. Lactic acid 2. UA does not appear infectious. CXR appears to have a right lower lobe pneumonia.CT of the abdomen and pelvis redemonstrated patchy consolidation and groundglassopacity in right lower lobe likely infection with no acute intra-abdominal abnormality Patient given IV fluids and antibiotics and hospitalist contacted for admission. Patient evaluated at bedside. She reports she began to have fevers and chills and feel achy on Sunday to the point she could barely stand. She has had some cough but reports it is chronic and also has chronic abdominal pain with nausea but feels that has been at her baseline. Aside from the fever and chills and a slight headache she did not have any other localizing complaints aside from her chronic complaints [facility] Medical History Physical exam, pre-employment Home Medications ?Medication ?Instructions ?Recorded ?Last Taken ?Type acetaminophen 500 mg capsule 1,000 mg PO Q4H PRN fever or pain 10/19/24 10/19/24 History bupropion HCl 150 mg 24 hr tablet, 150 mg PO DAILY 10/19/24 History extended release escitalopram oxalate 20 mg tablet 20 mg PO DAILY 10/1910/18/24 History ferrous sulfate 325 mg (65 mg 325 mg PO BID 10/19/24 0 10/19/24 History iron) tablet,delayed release hydroxychloroquine 200 mg tablet 200 mg PO BID 5 10/19/24 History hydroxyzine HCl 25 mg tablet 25 mg PO BID PRN anxiety 10/19/24 10/19/24 History lisinopril 40 mg tablet 40 mg PO DAILY 10/19/2409/30 History metformin 500 mg tablet 1,000 mg PO BID 10/19/24 History metoprolol succinate 50 mg 50 mg PO DAILY 10/19/24 History tablet,extended release 24 hr omeprazole 40 mg capsule,delayed 40 mg PO DAILY 10/19/24 History release rosuvastatin 5 mg tablet 5 mg PO QHS 10/19/24 5 History Allergy/AdvReac Type Severity Reaction Status Date / Time hydromorphone (From Dilaudid) Allergy Intermediate Rash Verified 10/19/24 15:36 Social History Smoking Status: Never smoker ROS ROS Narrative General: Fevers and chills HENT: Reports headache, denies stuffy nose, denies sore throat EYES: Denies changes in vision Resp: Chronic cough, denies shortness of breath Cardiac: Denies chest pain GI: Denies diarrhea, chronic nausea and chronic abdominal pain : Denies changes in urination Extremity: Denies swelling MSK: Denies weakness Neuro: Denies any numbness/tingling Heme: Denies any bleeding or bruising Skin: Denies rashes Psychiatric: No complaints voiced Vital Signs Vital Signs Vital Signs: 10/19/24 15:34 10/19/24 15:56 10/19/24 15:56 Temperature 101.2 F H 101.2 F H Temperature Source Oral Oral Pulse Rate 121 H 111 H Respiratory Rate 26 H 26 H Respiratory Effort Respiratory Pattern Blood Pressure 165/79 H 165/79 H Blood Pressure Mean 107 107 Pulse Ox 94 94 Oxygen Delivery Method Room Air Room Air 10/19/24 15:57 10/19/24 16:46 10/19/24 18:35 Temperature 101.7 F H Temperature Source Oral Pulse Rate 101 H 93 Respiratory Rate 18 25 H Respiratory Effort Labored Respiratory Pattern Tachypnea Blood Pressure 133/88 H 140/88 H Blood Pressure Mean 103 105 Pulse Ox 92 97 Oxygen Delivery Method Room Air 10/19/24 18:35 10/19/24 19:00 Temperature 99.2 F H 99.3 F H Temperature Source Oral Pulse Rate 93 92 Respiratory Rate 25 H 24 H Respiratory Effort Respiratory Pattern Blood Pressure 140/88 H 118/72 Blood Pressure Mean 105 87 Pulse Ox 97 97 Oxygen Delivery Method Room Air Weight Weight: 92 kg Body Mass Index (BMI) 34.8 Physical Exam Narrative General: Alert, oriented, HEENT: Atraumatic, normocephalic Eyes: Anicteric, normal conjunctiva, extraocular movements grossly intact Neck: Supple Respiratory: Clear to auscultation bilaterally, normal respiratory effort Cardiovascular: As noted DIMINISHED at right lung base GI: Soft, no specific areas of tenderness, no rebound, guarding, rigidity nondistended Extremities: No edema Musculoskeletal: Moving all extremities Neuro: No overt focal neurological deficits Skin: No rashes appreciated Psych: Cooperative Results Lab / Micro Data 10/19/24 15:46 10/19/24 15:46 Labs: Laboratory Results - last 24 hr 10/19/24 15:46: WBC 27.8 H, RBC 4.24, Hgb 12.6, Hct 36.9 L, MCV 87.0, MCH 29.7, MCHC 34.1, RDW Std Deviation 43.6, RDW Coeff of [place] 13.8, Plt Count 430, MPV 10.0, Immature Gran % (Auto) 1.400 H, Neut % (Auto) 84.7 H, Lymph % (Auto) 6.3 L, [place] % (Auto) 7.0, Eos % (Auto) 0.0, Baso % (Auto) 0.6, Absolute Neuts (auto) 23.6 H, Absolute Lymphs (auto) 1.76, Nucleated RBC % 0.1, PT 14.1, INR 1.1, APTT31.3, Sodium 132 L, Potassium 5.1, Chloride 98, Carbon Dioxide 19.8 L, Anion Gap15, BUN 12, Creatinine 1.57 H, Estim Creat Clear Calc 46.07 L, Est GFR (MDRD) Non-Af 39 L, BUN/Creatinine Ratio 7.7 L, Glucose 171 H, Lactic Acid 2.0, Calcium9.3, Total Bilirubin 0.21, AST 40 H, ALT 13, Alkaline Phosphatase 150 H, Total Protein 7.3, Albumin 3.5, Globulin 3.8, Albumin/Globulin Ratio 0.9 10/19/24 16:18: Urine Color Yellow, Urine Clarity Sl. Cloudy, Urine pH 5.0, Ur Specific [place] 1.020, Urine Protein 100 H, Urine Glucose (UA) Normal, Urine Ketones Negative, Urine Occult Blood 10 H, Urine Nitrite Negative, Urine Bilirubin Negative, Urine Urobilinogen Normal, Ur Leukocyte Esterase Negative, Urine RBC 0-5 SEEN, Urine WBC 0-5 SEEN, Ur Squamous Epith Cells 0-5 SEEN, Urine Bacteria 2+, Fine Granular Casts > 100 SEEN, Coarse Granular Casts 0 SEEN, UrineMucus 0 SEEN Micro: Microbiology 10/19/24 15:52 Mucosa - Nose SARS-CoV-2, Influenza & RSV (PCR) - Final Rhythm Strip Rhythm Strip: Sinus Tach Rate: 107 Ectopy: None Imaging Radiology Impression Chest X-Ray 10/19/24 15:40 IMPRESSION: Right base pneumonia Reading [facility] Abdomen/Pelvis CT 10/19/24 15:47 IMPRESSION: 1. Patchy consolidation and ground-glass opacity in the right lower lobe, likely representing infection. Recommend repeat imaging in 8-12 weeks to ensure resolution. 2. No acute intra-abdominal abnormality. 3. 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 Correlate with surgical history. If patient had prior splenectomy, recommend further imaging of the structure posterior to the stomach. 4. Numerous splenic hypodensities, majority of which are subcentimeter in size. Consider dedicated liver MRI or CT if patient has risk factors for hepatic malignancy. Reading Location: [facility] Assessment & Plan Assessment/Plan (1) Fever: (2) Right lower lobe pneumonia: PLAN: Plan # Right lower lobe pneumonia - Patient presented with temperature of 101.2, respiratory rate of 26 and heart rate of 121. Creatinine is 1.57 however no baseline available in our system. Patient does not have low platelets, low blood pressure, respiratory distress, decreased GCS score or other findings that would meet step 3 criteria for sepsiswill be admitted to PCU to treat for pneumonia -Chest x-ray suspicious for right lower lobe pneumonia -UA does not appear infectious -CT abdomen pelvis redemonstrated the right lower lobe patchy consolidation suspicious for infection, it recommended repeating imaging in 8 to 12 weeks to ensure resolution -DuoNebs and as needed albuterol -Sputum culture if able, COVID [], respiratory panel [] -Urine antigens -Mucinex, I/S -Rocephin and doxycycline, doxycycline over azithromycin due to patient being on multiple QTc prolonging medicines, QTc in the ED 440 # Hypodense hepatic lesions -Multiple hypodense lesions most of which are subcentimeter so evaluation is limited, there is 1 this 2.3 cm in the right hepatic lobe that is likely a simple cyst -No imaging in our system available for previous comparison -Can consider further imaging if there is risk for malignancy # QUANG versus CKD -No previous available results in our system so unclear the chronicity -IV fluids repeat in the a.m. -Can consider further workup if no improvement - Will hold lisinopril pending repeat kidney function in the a.m. #Hyponatremia - Unclear chronicity, sodium mildly low at 132 -Patient to be hydrated with IV fluids, repeat in the a.m., if any worsening may need to consider further workup #Type 2 diabetes mellitus -Glucose checks and sliding scale insulin #GERD -Continue PPI #Depression/anxiety -Continue home medications # Hypercholesterolemia - Continue with statin #DVT ppx: Heparin subcu Joycelyn Crowley MD Charges/Coding Visit Charges Inpatient E&M: 75170 Init Hosp L2 10/19/241944 <Electronically signed by Joycelyn Crowley MD> Cosigner Signature (if applicable): CC: Dr. Giselle Boykin MD; Dr. Joycelyn Crowley MD~ Signed [facility] Work Phone: History of Present illness [...] regimen, but she denies medication side effects. [facility] Work Phone: History of Present illness Narrative* The patient is being seen for follow-up of systemic lupus erythematosus. * Interval Events: lupus has been stable. Pt is looking to buy a new house No new symptoms . * Associated symptoms: myalgia. * Medications: the patient is adherent to her medication regimen, but she denies medication side effects. [facility] Work Phone: History of Present illness Narrative* The patient is being seen for follow-up of systemic lupus erythematosus. * Interval Events: some stress--notes more of a rash. Overall is doing ok . * Associated symptoms: myalgia. * Medications: the patient is adherent to her medication regimen, but she denies medication side effects. [facility] Work Phone: History of Present illness Narrative* Doing well on current medications. * Fasting for labs. * Does not check her blood sugar at home. * She would like to get Prevnar and Shingrix vaccines. [facility] Work Phone: History of Present illness [...] regimen, but she denies medication side effects. [facility] Work Phone: History of Present illness Narrative* 52-year-old female presents [...] At home taking tylenol without much relief. [facility] Work Phone: History of Present illness Narrative* The patient is being seen for follow-up of systemic lupus erythematosus. * Interval Events: pt reports symptoms are stable Notes some wrist pain but hasn't noted any other symptoms . * Associated symptoms: myalgia. * Medications: the patient is adherent to her medication regimen, but she denies medication side effects. [facility] Work Phone: Hospital course Narrative No data available for this section [facility] Reason for referral (narrative)* Consultation (Routine) - Authorized Specialty Diagnoses / Procedures Referred By Javier messina Referred To Contact Dermatology Diagnoses Skin lesion of chest wall Screening for skin cancer Giselle Boykin MD [address] [place] [id number] Referral ID Status Reason Start Date Expiration Date Visits Requested Visits Authorized [id number] Authorized Specialty Services Required 09/19/2023 09/18/2024 1 1 [facility] Work Phone: Reason for referral (narrative)No reason for [facility] Reason for visit Narrative* Imaging (Routine) - Authorized Specialty Diagnoses / Procedures Referred By Javier messina Referred To Contact Radiology Diagnoses Visit for screening mammogram Procedures BI mammo bilateral screening tomosynthesis Giselle Boykin MD [address] [place] [id number] Phone: tel: Referral ID Status Reason Start Date Expiration Date Visits Requested Visits Authorized [id number] Authorized Perform Procedure 02/04/2024 02/03/2025 1 1 [facility] Work Phone: Assessments Diagnosis Recurrent incisional hernia Diagnosis Recurrent incisional hernia- Primary Diagnosis Abnormal uterine bleeding Unspecified disorder of menstruation and other abnormal bleeding from female genital tract Diagnosis Recurrent incisional hernia Advance Directives Documents on File Type Date Recorded 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 Advance Directives and Living Will Power of Lamp Cleaner Latest Code Status on File Code Status Date Activated Date Inactivated Comments Full Code 02/18/2016 8:18 PM 02/19/2016 4:42 PM Full Code 02/18/2016 9:54 AM 02/18/2016 8:00 PM Latest Code Status on File Code Status Date Activated Date Inactivated Comments Full Code 12/24/2018 6:03 AM Full Code 02/18/2016 8:18 PM 02/19/2016 4:42 PM Documents on File Type Date Recorded 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 ACP-Advance Directive ACP-Power of Lamp Cleaner Latest Code Status on File Code Status Date Activated Date Inactivated Comments Full Code 12/03/2019 5:23 PM Full Code 12/03/2019 10:45 AM 12/03/2019 4:40 PM Full Code 12/24/2018 6:03 AM 12/24/2018 1:43 PM Documents on File Type Date Recorded 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 No October 19, 2024 3:57pm Discharge Instructions * Instructions* Lucrecia Reich MD [...] your doctor if you can take an [id number]-ffe-[id number] medicine. If your doctor prescribed antibiotics, take [...] take. When should you call for help? [id number] anytime you think you may need emergency [...] Where can you learn more? Go to [email or web address] and sign in to your knowNormal account. Enter Q131 in the Search Health Information box to learn more about Laparoscopic Hysterectomy: What to Expect at Home. If you do not have an account, please click on the "Sign Up Now" link. Current as of: February 07, 2019 Content Version: 12.5 2592-7072 [employer]. Care instructions adapted under license by [employer]. If you have questions about a medical condition or this instruction, always ask your healthcare professional. [employer] disclaims any warranty or liability for your [...] through Care Everywhere. * Laparoscopic Hysterectomy: Post-op (Persian) * Laparoscopic Hysterectomy: Pre-op (Persian) documented in this encounter* Instructions* Zully Mccoy [...] FROM OR VIA CART. SPONT RESP. 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 PLACED ON MONITOR. MONITOR ALARMS ON IN PACU. CNG=305 documented in this encounter* Rene Gaines MD - 12/04/2019 10:14 AM EDT Pt doing well. Pain controlled. Tolerating regular diet. Ambulatory. Minimal bleeding. Urinating without difficulty. vss afebrile Alert nad Normal resp Normal heart rate abd soft nontender inc c/d/i Ext nontender no edema bilaterally A/P: POD#1 tlh lysis of adhesions recovering well Dc home today Fu 2 wks office * Latonya Kolb RN - 12/03/2019 4:41 PM EDT To 1 east via stretcher on 3 l of o2 Diane rn given report pt rests comfortable easily arouses documented in this encounter Family History Sibling Name Dates Details Family history of [...] hernia Procedures CT Abdomen Pelvis W Contrast Roxanna Weaver, [employer] [address] [place] [address] Specialty Diagnoses / Procedures Referred By Javier messina Referred To Contact Gastroenterology Diagnoses Encounter for screening for malignant neoplasm of colon Procedures Colonoscopy Screening MD COLONOSCOPY FLX DX W/COLLJ SPEC WHEN PFRMD MD COLON CA SCRN NOT HI RSK IND MD COLORECTAL SCRN; HI RISK IND MD COLONOSCOPY W/BIOPSY SINGLE/MULTIPLE MD COLSC FLX W/RMVL OF TUMOR POLYP LESION SNARE TQ MD COLSC FLX W/REMOVAL LESION [place] [id number] [facility] Department [place] [address] Referral ID Status Reason Start Date Expiration Date V isits Requested Visits Authorized [id number] Authorized 01/10/2023 07/09/2023 1 1 Chief Complaint [...] hospitalpossible strep, coughing up mucouslupus follow up Chief Complaint and Reason for Visit Chief Complaint Admit Date RLL PNEUMONIA, FEVER, LEUKOCYTOSIS October 19, 2024 6:21pm RLL PNEUMONIA, FEVER, LEUKOCYTOSIS October 19, 2024 7:18pm Reason for Visit Admit Date Abdominal pain October 19, 2024 6:21 pm Fever October 19, 2024 6:21 pm Leukocytosis October 19, 2024 6:21 pm Right lower lobe pneumonia October 19 6:21pm Additional Source Comments INFORMATION SOURCE (unrecogn ized section and content) DATE CREATED AUTHOR 12/24/2019 [facility] DATE CREATED AUTHOR AUTHOR'S ORGANIZ ATION 05/14/[address] [facility] DATE CREATED AUTHOR AUTHOR'S ORGANIZ ATION 01/03/2022 [facility] DATE CREATED AUTHOR AUTHOR'S ORGANIZ ATION 11/02/2022 [facility] DATE CREATED AUTHOR AUTHOR'S ORGANIZ ATION 11/02/2022 [employer] DATE CREATED AUTHOR AUTHOR'S ORGANIZ ATION 11/30/2023 [facility] ([place]) DATE CREATED AUTHOR AUTHOR'S ORGANIZ ATION 01/30/2024 [facility] DATE CREATED AUTHOR AUTHOR'S ORGANIZ ATION 05/01/2024 [facility] DATE CREATED AUTHOR AUTHOR'S ORGANIZ ATION 05/13/2024 [facility] DATE CREATED AUTHOR AUTHOR'S ORGANIZ ATION 08/26/2024 [facility] DATE CREATED AUTHOR AUTHOR'S ORGANIZ ATION 08/26/2024 [facility] DATE CREATED AUTHOR AUTHOR'S ORGANIZ ATION 10/13/2024 [facility] Reason for Visit (unrecogniz ed section and content) Status Reason Specialty Diagnoses / Procedures Referre d By Contact Referred To Contact Open Radiology Diagnoses Recurrent incisional hernia Procedures CT Abdomen Pelvis W Contrast Roxanna Weaver, [employer] [address] [place] [address] Specialty Diagnoses / Procedures Referred By Javier messina Referred To Contact Gastroenterology Diagnoses Encounter for screening for malignant neoplasm of colon Procedures Colonoscopy Screening MD COLONOSCOPY FLX DX W/COLLJ SPEC WHEN PFRMD MD COLON CA SCRN NOT HI RSK IND MD COLORECTAL SCRN; HI RISK IND MD COLONOSCOPY W/BIOPSY SINGLE/MULTIPLE MD COLSC FLX W/RMVL OF TUMOR POLYP LESION SNARE TQ MD COLSC FLX W/REMOVAL LESION BY [place] [address] [facility] [place] [address] Referral ID Status Reason Start Date Expiration Date V isits Requested Visits Authorized [id number] Authorized 01/10/2023 07/09/2023 1 1 Reason Comments [...] or prosecute any alcohol or drug abuse patient.[facility] Center[facility] the event this information is protected by the Federal Confidentiality of Alcohol and Drug Abuse Patient Records regulations: The Federal rules restrict any use of the information to criminally investigate or prosecute any alcohol or drug abuse patient.[facility] Center[facility] the event this information is protected by the Federal Confidentiality of Alcohol and Drug Abuse Patient Records regulations: The Federal rules restrict any use of the information to criminally investigate or prosecute any alcohol or drug abuse patient.[facility] Care Teams (unrecognized sec tion and content) Web Design Intern Relationship Specialty Start Date End Date Giselle Boykin MD [address] [place] [address] PCP - General 03/24/19 Giselle Boykin MD [address] [place] [address] PCP - [employer] [employer] PCP 04/02/22 Web Design Intern Relationship Specialty Start Date End Date Giselle Boykin MD PCP - General 03/24/19 Giselle Boykin MD PCP - [place] [employer] PCP 04/02/22 Web Design Intern Relationship Specialty Start Date End Date Giselle Boykin MD [address] [place] [address] PCP - [place] [employer] PCP 04/02/22 Giselle Boykin MD [address] [place] [address] [address] [place] [address] PCP - General Internal Medicine 03/20/23 Web Design Intern Relationship Specialty Start Date End Date Giselle Boykin MD [facility] [address] [place] [phone] PCP - [employer] PCP 04/02/22 Giselle Boykin MD [facility] [address] [place] [phone] PCP - General Internal Medicine 03/20/23 Maura Lange MD [facility] [address] [place] [phone] Referring Physician Rheumatology 05/03/23 Web Design Intern Relationship Specialty Start Date End Date Giselle Boykin MD [facility] [address] [place] [phone] PCP - [place] PCP 04/02/22 Giselle Boykin MD [facility] [address] [place] [phone] PCP - General Internal Medicine 03/20/23 Maura Lange MD [facility] [address] [place] [phone] Referring Physician Rheumatology 05/03/23 Web Design Intern Relationship Specialty Start Date End Date Giselle Boykin MD [facility] [address] [place] [address] [id number] PCP - [place] [employer] PCP 04/02/22 Giselle Boykin MD [facility] [address] [place] [address] [phone] PCP - General Internal Medicine 03/20/23 Maura Lange MD [facility] [address] [place] [phone] Referring Physician Rheumatology 05/03/23 Web Design Intern Relationship Specialty Start Date [place] [address] [phone] PCP - [place] [employer] PCP 04/02/22 Giselle Boykin MD [address] [place] [address] [address] [place] [address] [phone] PCP - General Internal Medicine 03/20/23 Maura Lange MD [address] [place] [phone] Referring Physician Rheumatology 05/03/23 Web Design Intern Relationship Specialty Start Date End Date Giselle Boykin MD [address] [place] [address] PCP - General Internal Medicine 04/29/24 Web Design Intern Relationship Specialty Start Date End Date Giselle Boykin MD [address] [place] [phone] PCP - General Internal Medicine 04/29/24 Web Design Intern Relationship Specialty Start Date End Date Giselle Boykin MD [address] [place] [address] [phone] PCP - [employer] PCP 04/02/22 Giselle Boykin MD [address] [place] [address] [address] [place] [address] [phone] PCP - General Internal Medicine 03/20/23 Maura Lange MD [address] [place] [address] [phone] Referring Physician Rheumatology 05/03/23 Web Design Intern Relationship Specialty Start Date End Date Giselle Boykin MD [address] [place] [address] [address] [place] [phone] PCP - [employer] PCP 04/02/22 Giselle Boykin MD [address] [place] [address] [address] [place] [address] [phone] PCP - General Internal Medicine 03/20/23 Maura Lange MD [address] [place] [address] [address] [place] [phone] Referring Physician Rheumatology 05/03/23 Web Design Intern Relationship Specialty [place] [address] [place] [address] [place], [place] [phone] PCP - [employer] PCP 04/02/22 Giselle Boykin MD [address] [place] [address] [address] [place] [address] [phone] PCP - General Internal Medicine 03/20/23 Maura Lange MD [address] [place] [address] [address] [place] [phone] Referring Physician Rheumatology 05/03/23 Web Design Intern Relationship Specialty Start Date End Date Giselle Boykin MD [address] [place] [address] [place] [phone] PCP - [place] PCP 04/02/22 Giselle Boykin MD [address] [place] [address] [address] [place] [address] [phone] PCP - General Internal Medicine 03/20/23 Maura Lange MD [address] [place] [address] [address] [place] [phone] Referring Physician Rheumatology 05/03/23 Team Status: Active Member Role/Relationship Status Dates Dr. Giselle Boykin MD Primary Care Provider Activ e Team Status: Active Member Role/Relationship Status Dates Dr. Giselle Boykin MD Primary Care Provider Activ e Start: October 19, 2024 Dr. Link Herrmann MD Emergency Provider Active S tart: October 19, 2024 Dr. Joycelyn Crowley MD Admit Provider Active Star t: October 19, 2024 Dr. Joycelyn Crowley MD Attending Provider Active Start: October 19, 2024 Team Status: Active Member Role/Relationship Status Dates Dr. Giselle Boykin MD Primary Care Provider Activ e Start: October 19, 2024 Dr. Link Herrmann MD Emergency Provider Active S tart: October 19, 2024 Dr. Joycelyn Crowley MD Admit Provider Active Star t: October 19, 2024 Dr. Joycelyn Crowley MD Attending Provider Active Start: October 19, 2024 Dr. Joycelyn Crowley MD Other Provider Active Star t: October 19, 2024 Goals (unrecognized section and content) Goals may be documented in a n alternate section FOR RECORDS PERTAINING TO PATIENTS WHO ARE [...] BE BASED ON THE PRIMARY CLINICAL RECORDS. [facility] [employer] [facility]. provides no warranty or guarantee of the accuracy or completeness of information in this document.
[2024-10-19] MEDS: 0.9% Normal Saline (1000mL) 1,000 ML 100 ML IV (20:49)
[2024-10-19 20:51] VITALS: BP 123/76; PULSE 89; RESP 18; TEMP 37.2; O2SAT 97
[2024-10-19] MEDS: Heparin Injection (Vial) 5,000 UNIT/ML VIAL 5000 UNIT SC (22:40)
[2024-10-20] VITALS (10 sets, daily range): BP systolic 107–131; BP diastolic 67–73; PULSE 72–108; RESP 15–20; TEMP 37.2–39.6; O2SAT 91–96
[2024-10-20] MEDS: 0.9% Normal Saline (1000mL) 1,000 ML 100 ML IV (06:24)
[2024-10-20] MEDS: 0.9% Saline Lock 10 ML Syringe IV (08:59)
[2024-10-20] MEDS: Ceftriaxone 2 GM in 0.9% Normal Saline (50mL MB+) 50 ML IV (09:06)
[2024-10-20 09:58] LABS: Differential Indicated SCAN CRITERIA MET; Hematocrit 30.5 % (37-47); Hemoglobin 10.4 g/dL (12.0-15.0); Immature Granulocytes Count 0.320 X10^3/uL (0.0-0.0); Mean Corp Hgb Conc 34.1 g/dL (32-36); Mean Corpuscular Volume 87.4 fL (81-99); Mean Platelet Vol. 9.9 fl (6.2-12.0); NRBC Flagged by Analyzer 0.1 % (0-5); POSITIVE DIFFERENTIAL YES; Platelet Count 396 K/mm3 (150-450); RBC Distribution Width CV 13.9 % (11.6-14.6); RBC Distribution Width SD 44.6 fl (35.1-43.9); Red Blood Count 3.49 M/mm3 (4.2-5.4); White Blood Count 24.3 K/mm3 (4.4-11.0)
[2024-10-20] MEDS: buPROPion (XL) 150 MG TABLET.XL PO (10:24)
[2024-10-20] MEDS: Metoprolol(XL)Succ 50 MG Tablet PO (10:24)
[2024-10-20] MEDS: Heparin Injection (Vial) 5,000 UNIT/ML VIAL 5000 UNIT SC ×2 (10:24→20:54)
[2024-10-20 10:56] LABS: Anion Gap 12 (5-15); BUN 11 mg/dL (4-19); BUN/Creat Ratio 8.1 RATIO (10-20); Calcium,Total 8.2 mg/dL (7.6-11.0); Carbon Dioxide 19.0 mmol/L (21.0-32.0); Chloride 102 mmol/L (98-108); Estimated Creatinine Clearance 49.33 ml/min (50-250); Glucose 104 mg/dL (70-99); Potassium 3.9 mmol/L (3.3-5.1)
[2024-10-20] MEDS: Doxycycline 100 MG in 0.9% Normal Saline (250mL Bag) 250 ML 250 MG IV ×2 (11:26→20:47)
--- NOTE | 2024-10-20 11:54 | PCM.PROGNOTE ---
Subjective Subjective Patient seen and examined. She still complains of nausea and vomiting and says she always has diarrhea. She also admits to some fever but denied any chills or shortness of breath. Her temperature has come down today to 99 Fahrenheit. WBC has also trended down from 27-24 today. I did see patient with her nurse by her bedside. Review of symptoms otherwise negative. Objective Data Objective Data Vital Signs: Vital Signs Temp Pulse Resp BP Pulse Ox O2 Del Method 99.0 F 87 18 107/73 92 Room Air 10/20/24 11:30 10/20/24 11:30 10/20/24 11:30 10/20/24 11:30 10/20/24 11:30 10/20/24 11:30 Oxygen Delivery Method Room Air Weight: 190 lb 4.143 oz Body Mass Index (BMI) 34.7 Intake & Output: Intake and Output for Last 24 Hours 10/18/24 10/19/24 10/20/24 23:59 23:59 23:59 Intake Total 2305 / 2365 1068.33 / 1068.33 Balance 2305 / 2365 1068.33 / 1068.33 Lab / Micro Data 10/20/24 09:45 10/20/24 09:45 Labs: Laboratory Results - last 24 hr 10/19/24 15:46: WBC 27.8 H, RBC 4.24, Hgb 12.6, Hct 36.9 L, MCV 87.0, MCH 29.7, MCHC 34.1, RDW Std Deviation 43.6, RDW Coeff of Lula 13.8, Plt Count 430, MPV 10.0, Immature Gran % (Auto) 1.400 H, Neut % (Auto) 84.7 H, Lymph % (Auto) 6.3 L, Sawyer % (Auto) 7.0, Eos % (Auto) 0.0, Baso % (Auto) 0.6, Absolute Neuts (auto) 23.6 H, Absolute Lymphs (auto) 1.76, Nucleated RBC % 0.1, PT 14.1, INR 1.1, APTT 31.3, Sodium 132 L, Potassium 5.1, Chloride 98, Carbon Dioxide 19.8 L, Anion Gap 15, BUN 12, Creatinine 1.57 H, Estim Creat Clear Calc 46.07 L, Est GFR (MDRD) Non-Af 39 L, BUN/Creatinine Ratio 7.7 L, Glucose 171 H, Lactic Acid 2.0, Calcium 9.3, Total Bilirubin 0.21, AST 40 H, ALT 13, Alkaline Phosphatase 150 H, Total Protein 7.3, Albumin 3.5, Globulin 3.8, Albumin/Globulin Ratio 0.9 10/19/24 16:18: Urine Color Yellow, Urine Clarity Sl. Cloudy, Urine pH 5.0, Ur Specific [place] 1.020, Urine Protein 100 H, Urine Glucose (UA) Normal, Urine Ketones Negative, Urine Occult Blood 10 H, Urine Nitrite Negative, Urine Bilirubin Negative, Urine Urobilinogen Normal, Ur Leukocyte Esterase Negative, Urine RBC 0-5 SEEN, Urine WBC 0-5 SEEN, Ur Squamous Epith Cells 0-5 SEEN, Urine Bacteria 2+, Fine Granular Casts > 100 SEEN, Coarse Granular Casts 0 SEEN, Urine Mucus 0 SEEN 10/19/24 20:30: Lactic Acid < 1.0 10/19/24 22:47: POC Glucose 87 10/20/24 06:28: POC Glucose 84 10/20/24 09:45: WBC 24.3 H, RBC 3.49 L, Hgb 10.4 L, Hct 30.5 L, MCV 87.4, MCH 29.8, MCHC 34.1, RDW Std Deviation 44.6 H, RDW Coeff of Lula 13.9, Plt Count 396, MPV 9.9, Immature Gran % (Auto) 1.300 H, Neut % (Auto) 83.9 H, Lymph % (Auto) 8.4 L, Sawyer % (Auto) 5.9, Eos % (Auto) 0.0, Baso % (Auto) 0.5, Absolute Neuts (auto) 20.4 H, Absolute Lymphs (auto) 2.04, Nucleated RBC % 0.1, Sodium 133, Potassium 3.9, Chloride 102, Carbon Dioxide 19.0 L, Anion Gap 12, BUN 11, Creatinine 1.36 H, Estim Creat Clear Calc 49.33 L, Est GFR (MDRD) Non-Af 47 L, BUN/Creatinine Ratio 8.1 L, Glucose 104 H, Calcium 8.2 Micro: Microbiology 10/19/24 21:35 Mucosa - Nasopharyngeal Respiratory Panel (PCR) - Preliminary 10/19/24 16:18 Urine, Clean Catch Legionella Antigen - Final 10/19/24 16:18 Urine, Clean Catch Streptococcus pneumoniae Antigen (M - Final 10/19/24 15:52 Mucosa - Nose SARS-CoV-2, Influenza & RSV (PCR) - Final Radiography Diagnostic Testing: Radiology Impression Chest X-Ray 10/19/24 15:40 IMPRESSION: Right base pneumonia [facility]/Pelvis CT 10/19/24 15:47 IMPRESSION: 1. Patchy consolidation and ground-glass opacity in the right lower lobe, likely representing infection. Recommend repeat imaging in 8-12 weeks to ensure resolution. 2. No acute intra-abdominal abnormality. 3. 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 Correlate with surgical history. If patient had prior splenectomy, recommend further imaging of the structure posterior to the stomach. 4. Numerous splenic hypodensities, majority of which are subcentimeter in size. Consider dedicated liver MRI or CT if patient has risk factors for hepatic malignancy. Reading Location: [id number] Rhythm Strip Rhythm Strip: Sinus Tach Rate: 107 Ectopy: None Physical Exam Const alert and oriented x3 Constitutional Narrative: flat affect, looks weak. General Appearance: cooperative HEENT normocephalic, head/scalp atraumatic, moist oral mucous membranes and oropharynx normal Eyes PERRL and EOMs intact bilaterally Neck supple Lymph Lymphatic: no lymphadenopathy noted Resp clear to auscultation bilaterally Resp Narrative: Mildly diminished breath sounds bibasilar. No wheezes or crackles. On room air. Cardio regular rate, regular rhythm, S1 normal heart sound and S2 normal heart sound GI normal to inspection, nondistended, normoactive bowel sounds, soft to palpation, non-tender and non-distended Extremity normal capillary refill General Extremity: no tenderness to palpation of joints or extremities Skin General Skin Exam: no breakdown Neuro CN's II-XII intact bilaterally, no focal motor deficits and no sensory deficits noted Motor Exam: general weakness Psych thought process normal and cooperative Appearance: appropriate Assessment & Plan Assessment/Plan (1) Right lower lobe pneumonia: (2) Leukocytosis: (3) Fever: PLAN: Plan #Right lower lobe pneumonia Patient still febrile though temperature is down to 99 Fahrenheit this morning. Tachycardia and tachypnea have improved. Chest x-ray showed evidence of right lower lobe pneumonia. She denies any productive cough. CT abdomen and pelvis showed right lower lobe patchy consolidation. She is currently on IV ceftriaxone and azithromycin. Urine for strep and Legionella are negative. Sputum cultures and blood cultures pending. On IV Rocephin and doxycycline. Breathing treatments with bronchodilators. Titrate oxygen as needed to maintain saturation above 90%. WBC is down to 24 from 27 on admission. Urinalysis also did show 2+ bacteria though WBC was not elevated. Will therefore order urine cultures to make sure she does not have a UTI also. The ceftriaxone should cover UTI empirically. Respiratory panel negative. #Hypodense hepatic lesions CT abdomen and pelvis showed multiple hypodense lesions most of which are subcentimeter so evaluation was limited. Will benefit from follow-up on outpatient basis for further imaging as needed. #QUANG versus CKD: Trend creatinine. Lisinopril currently on hold. Creatinine is down to 1.36 from 1.57. Will continue monitoring. #Hyponatremia: Improving. Sodium is 133 today. #Type 2 diabetes mellitus: On insulin sliding scale. Checks ACHS. #GERD: On PPI #Anxiety and depression: On Lexapro and Wellbutrin #Hyperlipidemia: On statin #Hypertension: On metoprolol #DVT prophylaxis: Heparin Charges/Coding Visit Charges Inpatient E&M: 45618 Subs Hosp L2
--- NOTE | 2024-10-20 13:50 | CASEMGMT ---
RN CM Face to Face with patient for initial transition planning/care coordination assessment. RN CM introduced self and role at [facility]. Patient lying in bed, alert and oriented. Patient willing to participate in assessment and is able to answer all questions appropriately. Care providers, pharmacy, and demographics verified. Strata: 1 PCP: Alejandro Specialists: RA Nazario Preferred Pharmacy: [facility] Insurance: ICU [employer] Prescription Benefit: yes Living Will/HPOA: none LNOK: daughter Living Arrangements: Patient lives with daughter in a single story condo with no steps to enter. Patient is independent at home. Transportation: self, daughter DME/HHC: Patient denies DME in the home. No previous HHC or SNF. Will monitor for increase in home oxygen, prefers [employer] for DME. Patient wishes to discharge home, denies need for home health at this time. Patient states she has no further needs or concerns at this time. CM to follow for discharge planning needs that may arise. Disposition Plan: Patient to discharge home with family support and follow-up plans in place. Will monitor for home oxygen at discharge. Shawanda FLORES, RN, CM
[2024-10-21] VITALS (9 sets, daily range): BP systolic 129–152; BP diastolic 72–85; PULSE 88–123; RESP 15–18; TEMP 36.2–37.9; O2SAT 92–96
[2024-10-21] MEDS: 0.9% Saline Lock 10 ML Syringe IV ×2 (01:34→21:37)
[2024-10-21 06:48] LABS: Hematocrit 31.4 % (37-47); Hemoglobin 10.5 g/dL (12.0-15.0); Immature Granulocytes Count 0.460 X10^3/uL (0.0-0.0); Mean Corp Hgb Conc 33.4 g/dL (32-36); Mean Corpuscular Volume 89.0 fL (81-99); Mean Platelet Vol. 9.9 fl (6.2-12.0); NRBC Flagged by Analyzer 0.1 % (0-5); POSITIVE DIFFERENTIAL YES; Platelet Count 446 K/mm3 (150-450); RBC Distribution Width CV 14.2 % (11.6-14.6); RBC Distribution Width SD 46.2 fl (35.1-43.9); Red Blood Count 3.53 M/mm3 (4.2-5.4); White Blood Count 20.9 K/mm3 (4.4-11.0)
[2024-10-21 06:52] LABS: Differential Indicated SCAN CRITERIA MET
[2024-10-21 07:14] LABS: Differential Comment SCANNED
[2024-10-21] MEDS: buPROPion (XL) 150 MG TABLET.XL PO (08:15)
[2024-10-21] MEDS: Metoprolol(XL)Succ 50 MG Tablet PO (08:15)
[2024-10-21 08:41] LABS: Anion Gap 12 (5-15); BUN 9 mg/dL (4-19); BUN/Creat Ratio 6.7 RATIO (10-20); Calcium,Total 8.9 mg/dL (7.6-11.0); Carbon Dioxide 18.5 mmol/L (21.0-32.0); Chloride 103 mmol/L (98-108); Estimated Creatinine Clearance 48.27 ml/min (50-250); Glucose 108 mg/dL (70-99); Potassium 3.7 mmol/L (3.3-5.1)
[2024-10-21] MEDS: Ceftriaxone 2 GM in 0.9% Normal Saline (50mL MB+) 50 ML IV (09:16)
[2024-10-21] MEDS: Doxycycline 100 MG in 0.9% Normal Saline (250mL Bag) 250 ML 250 MG IV ×2 (10:10→21:38)
[2024-10-21] MEDS: Heparin Injection (Vial) 5,000 UNIT/ML VIAL 5000 UNIT SC ×2 (10:17→21:36)
--- NOTE | 2024-10-21 11:37 | PN_ITS ---
Subjective Subjective Patient seen and examined. She still complains of nausea. She denies any shortness of breath, cough, chest pain or any other symptoms. REview fo systems is otherwise negative. Objective Data Objective Data Vital Signs: Vital Signs Temp Pulse Resp BP Pulse Ox O2 Del Method 98.6 F 123 H 18 137/82 H 95 Room Air 10/21/24 08:12 10/21/24 08:15 10/21/24 08:12 10/21/24 08:15 10/21/24 08:12 10/21/24 09:04 Oxygen Delivery Method Room Air Weight: 190 lb 4.143 oz Body Mass Index (BMI) 34.7 Intake & Output: Intake and Output for Last 24 Hours 10/19/24 10/20/24 10/21/24 23:59 23:59 23:59 Intake Total 2305 / 2365 4068.33 / 4318.33 420 / 420 Balance 2305 / 2365 4068.33 / 4318.33 420 / 420 Lab / Micro Data 10/21/24 06:35 10/21/24 06:35 Labs: Laboratory Results - last 24 hr 10/20/24 11:24: POC Glucose 94 10/20/24 16:30: POC Glucose 72 L 10/20/24 20:44: POC Glucose 70 L 10/21/24 06:21: POC Glucose 98 10/21/24 06:35: WBC 20.9 H, RBC 3.53 L, Hgb 10.5 L, Hct 31.4 L, MCV 89.0, MCH 29.7, MCHC 33.4, RDW Std Deviation 46.2 H, RDW Coeff of Lula 14.2, Plt Count 446, MPV 9.9, Immature Gran % (Auto) 2.200 H, Neut % (Auto) 72.6 H, Lymph % (Auto) 17.3 L, [place] % (Auto) 7.4, Eos % (Auto) 0.0, Baso % (Auto) 0.5, Absolute Neuts (auto) 15.2 H, Absolute Lymphs (auto) 3.63, Nucleated RBC % 0.1, Differential Comment SCANNED, Sodium 134, Potassium 3.7, Chloride 103, Carbon Dioxide 18.5 L, Anion Gap 12, BUN 9, Creatinine 1.39 H, Estim Creat Clear Calc 48.27 L, Est GFR (MDRD) Non-Af 46 L, BUN/Creatinine Ratio 6.7 L, Glucose 108 H, Calcium 8.9 10/21/24 11:07: POC Glucose 112 H Micro: Microbiology 10/19/24 21:35 Mucosa - Nasopharyngeal Respiratory Panel (PCR) - Final 10/19/24 16:18 Urine, Clean Catch Urine Culture - Final Mixed Gram Pos & Gram Neg Org 10/20/24 19:40 Stool Clostridioides difficile (PCR) - Final 10/19/24 16:18 Urine, Clean Catch Legionella Antigen - Final 10/19/24 16:18 Urine, Clean Catch Streptococcus pneumoniae Antigen (M - Final 10/19/24 15:52 Mucosa - Nose SARS-CoV-2, Influenza & RSV (PCR) - Final Rhythm Strip Rhythm Strip: Sinus Tach Rate: 107 Ectopy: None Physical Exam Const alert and oriented x3 General Appearance: cooperative HEENT normocephalic, head/scalp atraumatic, moist oral mucous membranes and oropharynx normal Eyes PERRL and EOMs intact bilaterally Neck supple Lymph Lymphatic: no lymphadenopathy noted Resp clear to auscultation bilaterally Resp Narrative: Mildly diminished breath sounds bibasilar. No wheezes or crackles. On room air. Cardio regular rate, regular rhythm, S1 normal heart sound and S2 normal heart sound GI normal to inspection, nondistended, normoactive bowel sounds, soft to palpation, non-tender and non-distended Extremity normal capillary refill General Extremity: no tenderness to palpation of joints or extremities Skin General Skin Exam: no breakdown Neuro CN's II-XII intact bilaterally, no focal motor deficits and no sensory deficits noted Motor Exam: general weakness Psych thought process normal and cooperative Appearance: appropriate Assessment & Plan Assessment/Plan (1) Right lower lobe pneumonia: (2) Leukocytosis: (3) Fever: PLAN: Plan #Right lower lobe pneumonia * temperature down to 98.6F today. * Chest x-ray showed evidence of right lower lobe pneumonia. She denies any productive cough. CT abdomen and pelvis showed right lower lobe patchy consolidation. * She is currently on IV ceftriaxone and azithromycin. Urine for strep and Legionella are negative. * Sputum cultures and blood cultures pending. On IV Rocephin and doxycycline. * Breathing treatments with bronchodilators. Titrate oxygen as needed to maintain saturation above 90%. * WBC is further down to 20 today * Urinalysis also did show 2+ bacteria urine cultures growing mixed gram positive and gram negative organisms * Respiratory panel negative. #Hypodense hepatic lesions * CT abdomen and pelvis showed multiple hypodense lesions most of which are subcentimeter so evaluation was limited. * Will benefit from follow-up on outpatient basis for further imaging as needed. #QUANG versus CKD: Trend creatinine. Lisinopril currently on hold. Cr today is 1.39. This therefore appears to be more of an underlying CKD III #Hyponatremia: Improving. Sodium is 133 today. #Type 2 diabetes mellitus: On insulin sliding scale. Checks ACHS. #GERD: On PPI #Anxiety and depression: On Lexapro and Wellbutrin #Hyperlipidemia: On statin #Hypertension: On metoprolol #DVT prophylaxis: Heparin Disposition: anticipate dc over the next 24 to 48 hours Charges/Coding Visit Charges Inpatient E&M: 39686 Subs Hosp L2
[2024-10-22 03:53] VITALS: BP 139/84; PULSE 92; RESP 16; TEMP 37.3; O2SAT 94
[2024-10-22 06:22] VITALS: PULSE 85; RESP 16; O2SAT 94
[2024-10-22 06:52] LABS: Hematocrit 31.0 % (37-47); Hemoglobin 10.6 g/dL (12.0-15.0); Immature Granulocytes Count 0.690 X10^3/uL (0.0-0.0); Mean Corp Hgb Conc 34.2 g/dL (32-36); Mean Corpuscular Volume 85.9 fL (81-99); Mean Platelet Vol. 9.5 fl (6.2-12.0); NRBC Flagged by Analyzer 0.2 % (0-5); POSITIVE DIFFERENTIAL YES; Platelet Count 456 K/mm3 (150-450); RBC Distribution Width CV 14.0 % (11.6-14.6); RBC Distribution Width SD 44.1 fl (35.1-43.9); Red Blood Count 3.61 M/mm3 (4.2-5.4); White Blood Count 16.9 K/mm3 (4.4-11.0)
[2024-10-22 07:07] LABS: Differential Indicated SCAN CRITERIA MET
[2024-10-22 07:29] VITALS: BP 148/89; PULSE 98; RESP 17; TEMP 36.9; O2SAT 95
[2024-10-22 07:38] LABS: Anion Gap 14 (5-15); BUN 7 mg/dL (4-19); BUN/Creat Ratio 5.1 RATIO (10-20); Calcium,Total 9.2 mg/dL (7.6-11.0); Carbon Dioxide 19.3 mmol/L (21.0-32.0); Chloride 104 mmol/L (98-108); Estimated Creatinine Clearance 52.42 ml/min (50-250); Glucose 126 mg/dL (70-99); Potassium 3.4 mmol/L (3.3-5.1)
[2024-10-22] MEDS: Ceftriaxone 2 GM in 0.9% Normal Saline (50mL MB+) 50 ML IV (09:16)
[2024-10-22] MEDS: Heparin Injection (Vial) 5,000 UNIT/ML VIAL 5000 UNIT SC (09:22)
[2024-10-22 09:23] VITALS: PULSE 94
[2024-10-22] MEDS: buPROPion (XL) 150 MG TABLET.XL PO (09:23)
[2024-10-22] MEDS: Metoprolol(XL)Succ 50 MG Tablet PO (09:23)
[2024-10-22] MEDS: Doxycycline 100 MG in 0.9% Normal Saline (250mL Bag) 250 ML 250 MG IV (10:05)
[2024-10-22 11:59] VITALS: BP 142/65; PULSE 94; RESP 17; TEMP 37.2; O2SAT 94
--- NOTE | 2024-10-22 11:59 | DCINST_ITS ---
Discharge Instructions DC O2, CPAP, BIPAP needs Home O2 Discharge instructions: No Dressing / Incision Discharge Activity: Return to Normal Activity Weight Bearing Status: Weight bearing as tolerated Dressing / Incision Call your doctor if you observe: Fever of 101 or Higher, Shortness of breath, Dizziness, Swelling in the ankles and Chest pain Follow Up Care Test Results: Test results from this visit will be discussed in further detail at your follow- up appointment, if applicable. Discharge Plan Admission Admit Date/Time: 10/19/24 19:19 Primary Reason for Your Visit: pneumonia Attending Provider: Rocío Delgado Primary Care Provider: Giselle Allen Consulting Providers: Joycelyn Crowley Instructions Additional Instructions / Restrictions: follow up with PCP within one week for repeat CBC to evaluate trend of wbc Discharge Orders/Prescriptions Prescriptions: New levofloxacin 750 mg tablet 750 mg PO DAILY Qty: 7 0RF Continued metformin 500 mg tablet 1,000 mg PO BID metoprolol succinate 50 mg tablet extended release 24 hr 50 mg PO DAILY omeprazole 40 mg capsule,delayed release(DR/EC) 40 mg PO QPM hydroxyzine HCl 25 mg tablet 25 mg PO BID PRN (Reason: anxiety) hydroxychloroquine 200 mg tablet 200 mg PO BID ferrous sulfate 325 mg (65 mg iron) tablet,delayed release (DR/EC) 325 mg PO BID escitalopram oxalate 20 mg tablet 20 mg PO QHS rosuvastatin 5 mg tablet 5 mg PO QHS bupropion HCl 150 mg tablet extended release 24 hr 150 mg PO DAILY lisinopril 40 mg tablet 40 mg PO QHS acetaminophen 500 mg capsule 1,000 mg PO Q4H PRN (Reason: fever or pain) Referrals / Follow Up: Giselle Allen MD [Primary Care Provider] - Within 1 Week Disposition Disposition (needs filled in before D/C Order can be placed): Home, Self Care
--- NOTE | 2024-10-22 12:29 | CASEMGMT ---
Patient has order for discharge. RN CM in to discuss needs at discharge. Patient denies needs or help at discharge. Patient had no further questions or concerns.
--- NOTE | 2024-10-22 16:24 | DS.PCM_ITS ---
Providers Date of Admission: 10/19/24 Date of Discharge: 10/22/24 Primary Care Physician: Dr. Giselle Allen MD Reason For Visit: PNEUMONIA Diagnosis Discharge Diagnosis (1) Right lower lobe pneumonia: Status: Acute Code(s): J18.9 - Pneumonia, unspecified organism (2) Leukocytosis: Status: Acute Code(s): D72.829 - Elevated white blood cell count, unspecified (3) Fever: Status: Acute Code(s): R50.9 - Fever, unspecified Plan #Right lower lobe pneumonia * temperature down to 98.6F today. * Chest x-ray showed evidence of right lower lobe pneumonia. She denies any productive cough. CT abdomen and pelvis showed right lower lobe patchy consolidation. * She is currently on IV ceftriaxone and azithromycin. Urine for strep and Legionella are negative. * Sputum cultures and blood cultures pending. On IV Rocephin and doxycycline. * Breathing treatments with bronchodilators. Titrate oxygen as needed to maintain saturation above 90%. * WBC is further down to 20 today * Urinalysis also did show 2+ bacteria urine cultures growing mixed gram positive and gram negative organisms * Respiratory panel negative. #Hypodense hepatic lesions * CT abdomen and pelvis showed multiple hypodense lesions most of which are subcentimeter so evaluation was limited. * Will benefit from follow-up on outpatient basis for further imaging as needed. #QUANG versus CKD: Trend creatinine. Lisinopril currently on hold. Cr today is 1.39. This therefore appears to be more of an underlying CKD III #Hyponatremia: Improving. Sodium is 133 today. #Type 2 diabetes mellitus: On insulin sliding scale. Checks ACHS. #GERD: On PPI #Anxiety and depression: On Lexapro and Wellbutrin #Hyperlipidemia: On statin #Hypertension: On metoprolol #DVT prophylaxis: Heparin Disposition: anticipate dc over the next 24 to 48 hours Medications at Discharge Home Medications acetaminophen 500 mg capsule 1,000 mg PO Q4H PRN fever or pain 10/19/24 bupropion HCl 150 mg 24 hr tablet, extended release 150 mg PO DAILY depression/anxiety 10/19/24 escitalopram oxalate 20 mg tablet 20 mg PO QHS depression/anxiety 10/19/24 ferrous sulfate 325 mg (65 mg iron) tablet,delayed release 325 mg PO BID supplement 10/19/24 hydroxychloroquine 200 mg tablet 200 mg PO BID lupus 10/19/24 hydroxyzine HCl 25 mg tablet 25 mg PO BID PRN anxiety 10/19/24 lisinopril 40 mg tablet 40 mg PO QHS BP 10/19/24 metformin 500 mg tablet 1,000 mg PO BID diabetes 10/19/24 metoprolol succinate 50 mg tablet,extended release 24 hr 50 mg PO DAILY bp 10/19/24 omeprazole 40 mg capsule,delayed release 40 mg PO QPM acid reflux 10/19/24 rosuvastatin 5 mg tablet 5 mg PO QHS cholesterol 10/19/24 levofloxacin 750 mg tablet 750 mg PO DAILY #7 tabs 10/22/24 Hospital Course Operations None Procedures None Summary of Care Provided Minutes Spent on Discharge: 45 Hospital Course: Patient is a 54 y/o female with a PMH as outlined who was admitted via the ED on 07/26/2024 with a complaint of fever, chills, nausea and vomiting which had been going on since the Sunday prior to admission. She also admitted to chronic abdominal pain and right flank pain. Patient said she felt like how she had previously when she was septic so she came in to the ED. Vitals showed temperature of 101.2F, HR of 121, RR of 26 and pulse ox of 94% on room air. Labs showed wbc of 27.8 with left shift, and as well as lactic acid of 2 and urinalysis not being infectious. CXR showed a right lower lobe pneumonia. CT of the abdomen and pelvis redemonstarted patchy consolidation and groundglass opacity in right lower lobe, likely due to infection iwth no acute intra abdominal abnormality. She was therefore admitted to be managed for sepsis due to UTI and pneumonia. She admitted to fever and chills also, and admitted to a couogh which is chronic. CT abdomen and pelvis showed a hypodense hepatic lesion and multiple hypodense lesions most of which were subcentimeter so evaluation was limited and there was a 2.3 cm hepatic lobe which is likely a simple cyst. No previous imaging in the system. Creatinine was also elevated at 1.57 but trended down to 1.28 at time of discharge. She was started on IV ceftriaxone and doxycycline for right lower lobe pneumonia. Her WBC trended down from [address] down to 16.9 at time of discharge. Her fever and all her symptoms resolved and she felt much better and wanted to be discharged home. She was therefore discharged home on 10/22/2024 on p.o. Levaquin. She was counseled to follow-up with her PCP within 1 week for repeat CBC. Patient seen and examined. She had no active complaints and had an uneventful night. Labs and vitals reviewed. Home meds reviewed and reconciled. Physical Exam Const alert, oriented x3 and no apparent distress Constitutional Narrative: General Appearance: cooperative and comfortable HEENT normocephalic, head/scalp atraumatic, hearing grossly normal bilaterally, moist oral mucous membranes and oropharynx normal Mouth: oral and palatal mucosa normal Eyes PERRL and EOMs intact bilaterally Neck no lymphadenopathy and supple Lymph Lymphatic: no lymphadenopathy noted Resp clear to auscultation bilaterally Resp Narrative: Mildly diminished breath sounds bibasilar. No wheezes or crackles. On room air. Cardio regular rate, regular rhythm, S1 normal heart sound and S2 normal heart sound GI normal to inspection, nondistended, normoactive bowel sounds, soft to palpation, non-tender and non-distended Extremity normal to inspection, full ROM and normal capillary refill General Extremity: no tenderness to palpation of joints or extremities Skin no rashes or lesions noted General Skin Exam: no breakdown Neuro oriented x3, CN's II-XII intact bilaterally, moves all extremities, no focal motor deficits and no sensory deficits noted Sensorium / Orientation: awake Motor Exam: strength 5/5 throughout and general weakness Psych thought process normal and cooperative Appearance: appropriate Weight / BMI Weight Weight: 190 lb 4.143 oz Body Mass Index (BMI) 34.7 ABG / Lab / Microbiology Data 10/22/24 06:38 10/22/24 06:38 Laboratory: Laboratory Results - last 24 hr 10/21/24 16:30: POC Glucose 121 H 10/21/24 21:34: POC Glucose 106 10/22/24 06:35: POC Glucose 116 H 10/22/24 06:38: WBC 16.9 H, RBC 3.61 L, Hgb 10.6 L, Hct 31.0 L, MCV 85.9, MCH 29.4, MCHC 34.2, RDW Std Deviation 44.1 H, RDW Coeff of [place]ula 14.0, Plt Count 456 H, MPV 9.5, Immature Gran % (Auto) 4.100 H, Neut % (Auto) 58.6, Lymph % (Auto) 22.9, [place] % (Auto) 12.0 H, Eos % (Auto) 1.7, Baso % (Auto) 0.7, Absolute Neuts (auto) 9.9 H, Absolute Lymphs (auto) 3.87, Nucleated RBC % 0.2, Sodium 137, Potassium 3.4, Chloride 104, Carbon Dioxide 19.3 L, Anion Gap 14, BUN 7, C reatinine 1.28 H, Estim Creat Clear Calc 52.42, Est GFR (MDRD) Non-Af 50 L, B UN/Creatinine Ratio 5.1 L, Glucose 126 H, Calcium 9.2 Microbiology: Microbiology 10/19/24 15:46 Blood Culture (Wb) - Anticubital Left Blood Culture - Preliminary No growth in 48 hours. 10/19/24 15:45 Blood Culture (Wb) - Right Wrist Blood Culture - Preliminary No growth in 48 hours. 10/19/24 21:35 Mucosa - Nasopharyngeal Respiratory Panel (PCR) - Final 10/19/24 16:18 Urine, Clean Catch Urine Culture - Final Mixed Gram Pos & Gram Neg Org 10/20/24 19:40 Stool Clostridioides difficile (PCR) - Final 10/19/24 16:18 Urine, Clean Catch Legionella Antigen - Final 10/19/24 16:18 Urine, Clean Catch Streptococcus pneumoniae Antigen (M - Final 10/19/24 15:52 Mucosa - Nose SARS-CoV-2, Influenza & RSV (PCR) - Final D/C Instructions Discharge Activity: Return to Normal Activity Weight Bearing Status: Weight bearing as tolerated Call your doctor if you observe: Fever of 101 or Higher, Shortness of breath, Dizziness, Swelling in the ankles and Chest pain DC O2, CPAP, BIPAP Needs Home O2 Discharge instructions: No DC home with Oxygen: No Meaningful Use Info Meaningful Use Meaningful Use Diagnoses (Choose all that apply): None applicable Discharge Plan Admission Admit Date/Time: 10/19/24 19:19 Primary Reason for Your Visit: pneumonia Attending Provider: Rocío Delgado Primary Care Provider: Giselle Allen Consulting Providers: Joycelyn Crowley Instructions Additional Instructions / Restrictions: follow up with PCP within one week for repeat CBC to evaluate trend of wbc Discharge Orders/Prescriptions Prescriptions: New levofloxacin 750 mg tablet 750 mg PO DAILY Qty: 7 0RF Continued metformin 500 mg tablet 1,000 mg PO BID metoprolol succinate 50 mg tablet extended release 24 hr 50 mg PO DAILY omeprazole 40 mg capsule,delayed release(DR/EC) 40 mg PO QPM hydroxyzine HCl 25 mg tablet 25 mg PO BID PRN (Reason: anxiety) hydroxychloroquine 200 mg tablet 200 mg PO BID ferrous sulfate 325 mg (65 mg iron) tablet,delayed release (DR/EC) 325 mg PO BID escitalopram oxalate 20 mg tablet 20 mg PO QHS rosuvastatin 5 mg tablet 5 mg PO QHS bupropion HCl 150 mg tablet extended release 24 hr 150 mg PO DAILY lisinopril 40 mg tablet 40 mg PO QHS acetaminophen 500 mg capsule 1,000 mg PO Q4H PRN (Reason: fever or pain) Referrals / Follow Up: Giselle Allen MD [Primary Care Provider] - Within 1 Week Disposition Disposition (needs filled in before D/C Order can be placed): Home, Self Care Charges/Coding Visit Charges Inpatient E&M: 17947 Disch Hosp >30min
== END 2024-10-22 13:14 | disposition home or self-care (01) | DRG 139 ==
LOC: ED 15:58 → PCU 20:31
PROVIDERS: Admitting Provider Internal Medicine; Emergency Provider Emergency Medicine; PCP Student in an Organized Health Care Education/Training Program; Visit Provider Student in an Organized Health Care Education/Training Program
DX: J18.9 Pneumonia, unspecified organism (principal); E87.1 Hypo-osmolality and hyponatremia; N18.30 Chronic kidney disease, stage 3 unspecified; E11.22 Type 2 diabetes mellitus with diabetic chronic kidney disease; K76.9 Liver disease, unspecified; I12.9 Hypertensive chronic kidney disease with stage 1 through stage 4 chronic kidney disease, or unspecified chronic kidney disease; F32.A Depression, unspecified; K21.9 Gastro-esophageal reflux disease without esophagitis; F41.9 Anxiety disorder, unspecified; Z79.899 Other long term (current) drug therapy; Z79.84 Long term (current) use of oral hypoglycemic drugs
CPT/HCPCS: 36415; 71046; 74177; 80048; 80053; 81001; 82962; 83605; 85025; 85610; 85730; 87040; 87086; 87088; 87449; 87493; 87631; 87633; 93005; 94640; 94668; 99252; 99285; Q9967; A4216; G0463; J0696; J2405